=== PATIENT | male | born 1950 | race Caucasian/White ===

== ENCOUNTER 2024-03-23 11:39 | Inpatient (IN) ==
--- OUTSIDE RECORDS SUMMARY | 2024-03-23 11:45 | External Medical Summary | Summary of Care ---
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 ages 18 years and over): No Do you think you are at risk of becoming homeless? (Adult - for ages 18 years and over): Not on file Does your family worry about paying for your home or becoming homeless? (Household - for ages 0-17 years): Not on file Are you homeless or worried that you might be in the future? (Adult - for ages 18 years and over): No Are you (or your family) homeless or worried that you might be in the future? (Household - for ages0-17 years): Not on file COMPLETE REVIEW OF SYSTEMS: Cardiovascular: Negative for chest pain, shortness of breath, palpitations, angina or [place] Neurological: Negative for stroke, TIA, amaurosis fugax All other systems negative except for those noted above and in the history of present illness (HPI). GENERAL MULTI-SYSTEM PHYSICAL EXAM: VITAL SIGNS: BP 152/80 (BP Site: Left Arm, BP Position: Sitting, BP Cuff Size: Regular) | Pulse 72 | Temp 36 C(96.8 F) (Temporal Artery) | Wt 88.9 kg (195 lb 14.4 oz) | BMI 27.32 kg/m | BSA 2.11 m GENERAL MULTI-SYSTEM PHYSICAL EXAM: GENERAL: Normal grooming habits, no acute distress and appears stated age. RESPIRATORY: CTA, good effort CARDIOVASCULAR: no heart murmurs, no edema and no varicosities. GASTROINTESTINAL: no tenderness, protuberant and abdominal aorta not palpable. SKIN: Bilateral feet are warm to touch. Right TMA site is pink with edges approximated with sutures. No drainage. No evidence of necrosis as of now. Posterior heel steri-strips intact over puncture sites for achilles tendon release. No left foot ulcers EYES: conjunctivae normal, eye lids normal, pupils normal and irises normal. NEUROLOGIC: CN and motor function intact. RIGHT FOOT: PULSE SCALE: Carotid Right:----Bruit: No Left:----Bruit: No Radial Right: 2 Left: 2 Femoral Right: 2 Left: 3 Popliteal Right: 2 Left: 2 Dorsalis Pedis Right: 0 biphasic doppler signal Left: 0 Posterior Tibial Right: 0 monophasic doppler signal Left: 0 PULSE SCALE: 4=Aneurysmal; 3=Normal; 2=Diminished; 1=Barely Palpable; 0=Absent DIAGNOSTIC STUDIES: 02/26/24: right foot xray: not yet read but apparent osteomyelitis of right medial MTH 01/17/2024 BLE Veins Mapping: R GSV: 5.6/4.6/4.1/3.5/3.6/2.6/3.9 mm L GSV: 5.1/3.2/2.9/3.3/2.5/2.1/2.0 mm. 12/28/2023 MRI R Foot: 1. Field inhomogeneity artifact severely reduces sensitivity. 2. Confluent T1 hypointensity, T2 hyperintensity, and enhancement of the medial/tibial aspect of the great toe proximal phalanx base and great toe metatarsal head, which may represent osteomyelitis. Overlying soft tissue defect, which may represent wound/ulcer. 3. Apparent confluent T1 hypointensity, T2 hyperintensity, and enhancement of the tuft of the greattoe distal phalanx, 2nd toe distal phalanx and middle phalanx head, and to a lesser degree 4th distal phalanx, which may represent osteomyelitis or field inhomogeneity artifact. 4. Possible soft tissue defect along the tip of the 2nd toe which may represent wound/ulcer, and increases index of suspicion for osteomyelitis of the 2nd toe. 5. Nonspecific mild diffuse soft tissue swelling, edema, and enhancement, which may represent cellulitis in the appropriate clinical setting. 6. No abscess or necrotizing soft tissue infection. 7. Localizer views demonstrate nonspecific abnormal signal of the talar dome. Consider nonemergent MRI of the ankle for further evaluation if clinically indicated. 12/21/23 TOREY: MC/MC, strong RLE biphasic waveforms 12/21/23 RLE Art Duplex: Ao Dist UI, RCIA 75, REIA 98, RCFA 76, RDFA 90, RSFA 121/74/83/94, R Pop 85, RTPT 81, RATA 26, RPTA 27, R Peron UI 10/31/23 TOREY: MC/MC, monophasic waveforms. Waveforms more depressed on left, compared to 202209/05/22 TOREY: MC/0.82, unchanged waveforms 03/29/22 TOREY: MC/0.88 03/29/22 Abd Aortic Duplex: 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 No CIAAs 10/13/21 TOREY MC/leg in cast. Right leg waveforms mono to biphasic. Right Toe 0.38 LABS: Hemoglobin AIC Results: Lab Results Component Value Date/Time HEMOGLOBIN A1C - [facility] 8.1 (H) 12/18/2023 10:44 AM HEMOGLOBIN A1C - [facility] 9.6 (H) 10/25/2023 11:30 AM HEMOGLOBIN A1C - [facility] 9.2 (H) 09/04/2023 10:46 AM HEMOGLOBIN A1C - [facility] 7.9 (H) 02/20/2020 10:48 AM HEMOGLOBIN A1C - [facility] 6.5 (H) 09/17/2015 08:08 AM HEMOGLOBIN A1C - [facility] 5.9 08/06/2010 08:08 AM Lab Results Component Value Date/Time CREATININE - [facility] 0.6 02/26/2024 10:15 AM CREATININE - [facility] 0.86 02/05/2024 12:00 AM CREATININE - [facility] 0.68 (A) 01/02/2024 12:00 AM CREATININE - [facility] 0.6 12/18/2023 10:44 AM CREATININE - [facility] 0.7 10/25/2023 11:30 AM CREATININE - [facility] 0.97 10/09/2023 12:00 AM CREATININE - [facility] 0.6 02/20/2020 10:48 AM CREATININE - [facility] 0.8 09/17/2015 08:08 AM CREATININE - [facility] 0.6 (L) 04/22/2011 02:15 PM CREATININE, RANDOM URINE - [facility] 53 10/25/2023 11:30 AM CREATININE, RANDOM URINE - [facility] 154 03/16/2022 08:49 AM CREATININE, RANDOM URINE - [facility] 82 04/28/2021 08:43 AM CREATININE, RANDOM URINE - [facility] 51 02/20/2020 10:48 AM CREATININE, RANDOM URINE - [facility] 101 08/06/2010 08:09 AM Lab Results Component Value Date/Time LDL (CALCULATED)-[facility] LAB 82.20 03/01/2021 12:00 AM LDL (DIRECT MEASURE)-OUTSIDE LAB 86 03/01/2021 12:00 AM LDL CHOLESTEROL (CALCULATED) - [facility] 36 03/17/2023 09:51 AM LDL CHOLESTEROL (CALCULATED) - [facility] 159 (H) 09/17/2015 08:08 AM LDL CHOLESTEROL (DIRECT MEASURE) - [facility] 109 02/20/2020 10:48 AM Hemoglobin Results: Lab Results Component Value Date/Time HGB 14.6 03/15/2024 07:45 PM HGB 15.9 02/26/2024 10:15 AM HGB 16.0 02/05/2024 12:00 AM HGB 15.6 01/02/2024 12:00 AM HGB 15.5 10/09/2023 12:00 AM HGB 15.3 09/17/2015 08:08 AM HGB 13.9 (L) 04/22/2011 02:15 PM HGB 9.7 (L) 04/27/2010 05:56 AM Hemoglobin A1C last 3 results: Lab Results Component Value Date/Time HEMATOCRIT POCT - [facility] 43 04/20/2010 11:50 AM HEMATOCRIT POCT - [facility] 04/20/2010 11:50 AM QA FLAGS AND/OR RANGES MODIFIED BY DEMOGRAPHIC UPDATE ON 04/21 AT 1103 HEMOGLOBIN A1C - [facility] 8.1 (H) 12/18/2023 10:44 AM HEMOGLOBIN A1C - [facility] 9.6 (H) 10/25/2023 11:30 AM HEMOGLOBIN A1C - [facility] 9.2 (H) 09/04/2023 10:46 AM HEMOGLOBIN A1C - [facility] 7.9 (H) 02/20/2020 10:48 AM HEMOGLOBIN A1C - [facility] 6.5 (H) 09/17/2015 08:08 AM HEMOGLOBIN A1C - [facility] 5.9 08/06/2010 08:08 AM HEMOGLOBIN I-STAT POCT - [facility] 14.6 04/20/2010 11:50 AM HEMOGLOBIN I-STAT POCT - [facility] 04/20/2010 11:50 AM QA FLAGS AND/OR RANGES MODIFIED BY DEMOGRAPHIC UPDATE ON 04/21 AT 1103 HEMOGLOBIN, [id number] LAB 7.6 (A) 02/05/2024 12:00 AM HEMOGLOBIN, [id number] LAB 7.3 (A) 03/01/2021 12:00 AM HEMOGLOBIN, [id number] LAB 7.2 (A) 02/15/2021 12:00 AM The above clinical lab tests were reviewed by me on 03/20/2024. IMPRESSIONS: S/p right 1st, 2nd, 3rd, and 4th toe transmetatarsal (Ray) amputation with Dr. Chan 03/15/24, also had achilles tendon release at same time: wound edges approximated with sutures. No s/s infection. S/P right peroneal angioplasty on 11/15/[address] Chan for PVD with slow healing toe amp sites & foot ulcer. Limited revasc options for RLE. Patient seen Podiatry (Dr. Pelaez) weekly, in [place] MRI 12/2023 suggested possibility of osteo to great toe proximal phalanx base and great toe metatarsal head: no updated xray imaging. S/P amputation of right 3rd toe for gangrene on 10/10/[address] Pelaez @ [facility] in [place]. H/O LLE Diabetic foot ulcer. S/P I&D along with wound vac therapy, followed by total contact cast. H/O left toe amps, left second toe and fourth metatarsal head for osteomyelitis, 03/05/[address] Pelaez, DPM, [place] Abd aortic ectasia by 2022 duplex HTN Dyslipidemia. Never smoker. DM. H/O Right JOSE 2010, w/ periop Tulip IVC Filter (Segundo), since removed Right rotator cuff syndrome PLAN: S/p Right completion TMA for non-healing ulcerations. Edges approximated with sutures. No evidence of necrosis currently, but high- risk given small vessel disease. Will monitor closely. BLE venous mapping and angiogram previously noted "His bypass options are limited. The AT/DP is obliterated. He has a marginal distal PT target that is supplied by the peroneal. The plantar arteries are quite small, perhaps underfilled" Continue daily 81 mg ASA for vasculopathy. Continue daily 40 mg Lipitor for dyslipidemia/pleiotropic benefits He reports excellent glycemic control since last clinic visit 01/2024. Most recent A1c 7.6% As previously discussed, at request of POA and patient, HBO post-op to assist with healing is likely to be a good option. As would like to give this TMA every chance to heal given his known small vessel disease and high risk for progression to BKA, have placed referral for their evaluation/initiation of treatments as indicated. Patient taking occasional oxycodone for severe stump pain, although less over time. Only has 3 pills left, requested refill of 10 pills to use prn severe pain if needed. Advised patient to use tylenol for pain first and only use oxycodone if pain not controlled with that. #10 escribed to [facility] pharmacy as requested. Advised that would not likely provide additional refills if wound healing going as expected. Have placed new referral for wheelchair that was ordered in the hospital but had missing information, per patient's report. He requires wheelchair in the home for maximal off-loading of right foot TMA. High-risk for incision breakdown. Patient to use walker for transfers only, otherwise should use wheelchair for movement around his home with right leg elevated for edema control. Follow-up 1 weeks for wound check at [facility] to be sure no evidence of flap necrosis, progressive wound edge separation. Also has 1 month HD appt with [facility] and RLE duplex, sooner prn SAR[facility] Section of Vascular and Endovascular Surgery [address] [address] documented in this encounter Nursing Notes * Ludy Rico LPN - 03/20/2024 10:49 AM EST Reviewed the option of transferring scripts to [facility] pharmacy with patient and / or family. Patient was instructed to not get up on the exam table/exam chair until directed and assisted by their provider; patient is to remain seated in the chair/ wheelchair/ exam table/ exam chair for fall prevention and safety reasons. Patient is aware to have assistance to step down off exam table/exam chair with personnel. Patient voiced full comprehension of instructions. Patient states no changes w/ meds.. Ludy Rico LPN documented in this encounter Miscellaneous Notes * Addendum Note - Mickey Montejo CRNP - 03/20/2024 1:37 PM ESTAddended by: MICKEY MONTEJO on: 03/20/2024 01:37 PM Modules accepted: Orders documented in this encounter Plan of Treatment Upcoming Encounters Date Type Department Care Team (Late st Contact Info) Description 03/27/2024 9:30 AM EST Office Visit Vascular Surgery, [address] [address] Mukund Ross MD [address] [place] [address] 04/05/2024 1:00 PM EST Appointment Vascular Lab [address] [address] 04/05/2024 1:30 PM EST Appointment Vascular Lab [address] [address] 04/05/2024 2:20 PM EST Office Visit Vascular Surg [facility], [address] [address] Manoj Chan MD [address] [place] [facility] [place] [address] 05/13/2024 7:20 AM EDT Office Visit Family Medicine [address] [place] [phone] Gabriele Dumas MD [address] [place] [address] [place] [address] 05/24/2024 11:00 AM EDT Office Visit Ophthalmology, [place] [address] [place] [address] Lester Livingston DO [address] [place] [address] 05/24/2024 1:00 PM EDT Hospital Encounter ENDO [facility], Endoscopy Room [facility] [address] [facility] [place] [phone] Dawn Hilario MD [address] [place] [address] 05/24/2024 1:00 PM EDT - 05/24/2024 1:30 PM EDT Surgery ENDO [facility], Endoscopy Room [facility] [address] [facility] [place] [phone] Dawn Hilario MD [address] [place], [place] [address] [address] COLONOSCOPY FLEXIBLE PROXIMAL DIAGNOSTIC 07/15/2024 2:00 PM EDT Office Visit Gastroenterology, [facility] [address] [place] [address] Lynnette Christian CRNP [address] [place] [address] 07/29/2024 7:30 AM EDT Office Visit Pharmacy, [address] [place] [address] [place] [address] Scheduled Procedures Name Priority Associated Diagnoses Date/Ti me COLONOSCOPY FLEXIBLE PROXIMAL DIAGNOSTIC Diarrhea, unspecified type 05/24/2024 1:00 PM EDT Scheduled Referrals Name Type Priority Associated Diagnoses Orde r Schedule HYPERBARIC MEDICINE REFERRAL OP Referral Within 3 days (urgent) S/P transmetatarsal amputation of foot, right (HCC) Ordered: 03/20/2024 Health Maintenance Due Date Last Done Comments DTap/Tdap Vaccines (1 - Tdap) 1969 Pneumococcal Vaccine: 50+ Years (1 of 2 - PCV) 1968 Colonoscopy 1994 Fecal Occult Blood Test 1994 Sigmoidoscopy 1994 Adult Wellness Visit 06/16/2015 COVID-19 Vaccine ( season) 2023 Diabetic Foot Exam 02/28/2024 02/27/2023, 0 03/16/2022, 02/20/2020, Additional history exists HbA1c 08/05/2024 02/05/2024, 11/0 05/2023, 10/25/2023, Additional history exists Diabetic Eye Exam 09/20/2024 09/21/2023, , 09/21/2023, Additional history exists Albumin/Creatinine Ratio 10/24/2024 024, 03/16/2022, 04/28/2021, Additional history exists Depression Screening 12/17/2024 12/18/2023 GFR 02/25/2025 02/26/2024, 01/14, 01/02/2024, Additional history exists Cologuard 06/16/2025 06/16/2022, 05/15, 06/07/2022 Colorectal Cancer Screening 06/16/2025 HPV (Gardasil) Vaccine Aged Out No lo nger eligible based on patient's age to complete this topic Hepatitis B Vaccine Aged Out No longe r eligible based on patient's age to complete this topic MENINGOCOCCAL (MENACTRA/MENVEO) Aged Out No longer eligible based on patient's age to complete this topic Zoster Vaccines Discontinued documented as of this encounter Medical Devices Implanted Type Area Jewel Stripper Device Identifier Shelf Expiration Date Model / Serial / Lot Filter Navalign Femoral Tulip - [id number] Implanted:Qty: 1 on 04/21/2010 at OR [facility] [place] Right: Inferior Vena Cava COOK : [employer] 04/12/2013 [id number] / / [id number] Lavina Acetabular Liner +4 [id number] 52mm Od Implanted:Qty: 1 on 04/22/2010 at OR [facility] [place] Right: Hip 03/16/2015 [id number] / / [id number] Stem [place] Por Tpr Stdoff S6 - [id number] Implanted:Qty: 1 on 04/22/2010 at OR [facility] [place] Right: Hip JNJ : [employer] 02/14/2020 [id number] / / [id number] Head Mtl Artic Edwardo 36mm Pl5 - [id number] Implanted:Qty: 1 on 04/22/2010 at OR [facility] [place] Right: Hip JNJ : [employer] 12/14/2014 [id number] / / [id number] Fem Acet Lavina 300 52mm - [id number] Implanted:Qty: 1 on 04/22/2010 at OR [facility] [place] Right: Hip JNJ : [employer] [id number] / / [id number] Screw Selftap 3.5x55 204.855 - [id number] Implanted:Qty: 1 on 04/22/2010 at OR [facility] [place] Right: Hip SYNTHES 204.855 / / Screw Canc 4mm 206.065 - [id number] Implanted:Qty: 1 on 04/22/2010 at OR [facility] [place] Right: Hip SYNTHES 206.065 / / Screw Canc Lavina 6.5x50mm - [id number] Implanted:Qty: 1 on 04/22/2010 at OR [facility] [place] Right: Hip JNJ : [employer] [id number] / / [id number] Screw Canc Lavina 6.5x30mm - [id number] Implanted:Qty: 1 on 04/22/2010 at OR [facility] [place] Right: Hip JNJ : [employer] 02/14/2020 [id number] / / [id number] Screw Selftap 3.5x55 204.855 - [id number] Implanted:Qty: 2 on 04/22/2010 at OR [facility] [place] Right: Hip SYNTHES 204.855 / / Screw Canc 4mm 206.065 - [id number] Implanted:Qty: 1 on 04/22/2010 at OR [facility] [place] Right: Hip SYNTHES 206.065 / / Screw Canc Lavina 6.5x15mm - [id number] Implanted:Qty: 1 on 04/22/2010 at OR [facility] [place] Right: Hip JNJ : [employer] 02/14/2020 [id number] / / [id number] Lens 20.5 [id number] - [id number] - [id number] Implanted:Qty: 1 on 10/14/2020 by Lester Livingston DO at OR [facility] Right: Eye DUANE : SURGICAL 2025 [id number] / [id number] / Lens 20.0 [id number] - [id number] - [id number] Implanted:Qty: 1 on 12/09/2020 by Lester Livingston DO at OR [facility] Left: Eye DUANE : SURGICAL 07/13/2025 [id number] / [id number] / documented as of this encounter Visit Diagnoses Diagnosis S/P transmetatarsal amputation of foot, right (HCC)- Primary Diabetes mellitus with complication (HCC) Type II or unspecified type diabetes mellitus with unspecified complication, not stated as uncontrolled Hyperlipidemia with target LDL less than 100 Other and unspecified hyperlipidemia Small vessel disease (HCC) Peripheral vascular disease, unspecified Atherosclerotic peripheral vascular disease (HCC) Atherosclerosis of [place] arteries of the extremities, unspecified Diarrhea, unspecified type documented in this encounter Advance Directives * Full Code (Latest Code Status on File) Date Activated Date Inactivated Comments 03/15/2024 3:35 PM 03/17/2024 3:47 PM This order re flects the patients wishes and were consensually agreed upon. Question Answer Comments Discussion of Advance Directives occurred with: Patient * Full Code Date Activated Date Inactivated Comments 04/22/2010 6:35 PM 04/27/2010 9:02 PM Question Answer Comments Discussion of Advance Directives occurred with: Not Discussed Care Teams Care Connector Relationship Specialty Start Date End Date Gabriele Dumas MD [address] [place] [address] [place] [address] PCP - General Family Medicine 06/04/21 documented as of this encounter
--- OUTSIDE RECORDS SUMMARY | 2024-03-23 11:45 | External Medical Summary | Summary of Care ---
Author Name Unknown Organization [facility] Address [address] [place] [address] Phone [phone] Care Team Providers Care Tray Delivery Aide Name Role Phone Gabriele Dumas MD Primary Care Provide r Reason for Visit * Reason Onset Date Comments Order Request 03/20/2024 Fax 03/20/2024 Encounter Details Date Type Department Care Team (Late st Contact Info) Description 03/20/2024 Telephone Vascular Surg [facility] [address] [place] [address] Services, [facility] [address] [place] [address] Order Request; Fax Allergies Active Allergy Reactions Criticality Noted Date Comments Influenza Vaccines Neuro complications (Please comment) 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 90 Tablet 5 3 Active OneTouch Delica Lancets 33G Use to test blood sugars once daily DxE11.9 100 Each 3 3 Active Novofine Pen Needle 32G X 6 MM (NOVOFINE 32G PEN NEEDLE)Indication s:Type 2 diabetes mellitus with hemoglobin A1c goal of less than 8.0% (HCC) Use it daily 100 Each 4 Active Lisinopril 40 MG Oral TabletIndications :HTN, goal below 140/90 TAKE 1 TABLET BY MOUTH IN THE MORNING 90 Tablet 2 4 Active OneTouch Verio In Vitro Strip (Glucose Blood)Indications :Type 2 diabetes mellitus with hemoglobin A1c goal of less than 8.0% (HCC) Use to test blood sugars once daily DxE11.9 100 Strip 3 4 Active Aspirin 81 MG Oral Tablet Delayed ReleaseIndication s:PAD (peripheral artery disease) (HCC) Take 1 Tablet by mouth in the morning. 100 Tablet 3 4 Active metFORMIN HCl ER 500 MG Oral Tablet Extended Release 24 Hour (Glucophage XR)Indications:Ty pe 2 diabetes mellitus with hemoglobin A1c goal of less than 8.0% (HCC) TAKE 4 TABLETS BY MOUTH ONCE DAILY IN THE MORNING 360 Tablet 1 4 Active Liraglutide 18 MG/3ML Subcutaneous Solution Pen-injector (Victoza)Indicati ons:Type 2 diabetes mellitus with hemoglobin A1c goal of less than 8.0% (HCC) Inject 1.8 mg under the skin in the morning. 9 mL 5 4 Active amLODIPine Besylate 5 MG Oral Tablet (Norvasc)Indicati ons:HTN, goal below 140/90 Take 1 Tablet by mouth in the morning. 90 Tablet 1 4 Active Dapagliflozin Propanediol 10 MG Oral Tablet (Farxiga)Indicati ons:Type 2 diabetes mellitus with hemoglobin A1c [...] area. Active Glimepiride 4 MG Oral Tablet (Amaryl)Indicatio ns:Type 2 diabetes mellitus with hemoglobin A1c [...] for Pain, Severe. 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 (Household - for ages [...] PM EDT documented as of this encounter Functional Status * Are you deaf or do you have serious difficulty hearing? Answer Date of Assessment Author No 03/15/2024 5:22 PM Rebecca Stewart RN * Are you blind or do [...] Rebecca Stewart RN documented in this encounter Miscellaneous Notes * Telephone Encounter - Jarrett Trejo OSA - 03/20/2024 2:06 PM EST Information faxed and called to let patient know * Telephone Encounter - Ofelia Schulz CRNP - 03/20/2024 1:29 PM EST Called and clarified what was needed. Jarrett, please fax and let patient know we resubmitted everything to [facility]. Thank you. * Telephone Encounter - Delmis Torres OSA - 03/20/2024 12:28 PM EST Pt called stating he needs a new order for the wheel chair. He states it needs to state that the leg is to be able to be raised out straight in front of him. He states he is not sure what the terminology. Per pt they also would like clinic notes from today's appt [facility] in [place] documented in this encounter Plan of Treatment Upcoming Encounters Date Type Department Care Team (Late st Contact Info) Description 03/27/2024 9:30 AM EST Office Visit Vascular Surgery, [address] [place] [address] Mukund Ross MD [address] [place] [address] 04/05/2024 1:00 PM EST Appointment Vascular Lab [address] [address] 04/05/2024 1:30 PM EST Appointment Vascular Lab [address] [address] 04/05/2024 2:20 PM EST Office Visit Vascular Surg [place] [address] [place] [address] Manoj Chan MD [address] [place] [address] 05/13/2024 7:20 AM EDT Office Visit Family Medicine [address] [place] [phone] Gabriele Dumas MD [address] [place] [address] [place] [address] 05/24/2024 11:00 AM EDT Office Visit Ophthalmology, [address] [place] [address] Lester Livingston DO [address] [place] [address] 05/24/2024 1:00 PM EDT Hospital Encounter ENDO [facility], Endoscopy Room [facility] [address] [place] [phone] Dawn Hilario MD [address] [address] 05/24/2024 1:00 PM EDT - 05/24/2024 1:30 PM EDT Surgery ENDO [facility], Endoscopy Room [facility] [address] [facility] [place] [phone] Dawn Hilario MD [address] [address] COLONOSCOPY FLEXIBLE PROXIMAL DIAGNOSTIC 07/15/2024 2:00 PM EDT Office Visit Gastroenterology, Health system [address] [facility] [place] [address] Lynnette Christian CRNP 132 [facility] [place] [address] 07/29/2024 7:30 AM EDT Office Visit Pharmacy, [address] [place] [address] [place] [address] Scheduled Procedures Name Priority Associated Diagnoses Date/Ti me COLONOSCOPY FLEXIBLE PROXIMAL DIAGNOSTIC Diarrhea, unspecified type 05/24/2024 1:00 PM EDT Health Maintenance Due Date Last Done Comments DTap/Tdap Vaccines (1 - Tdap) 1968 Pneumococcal Vaccine: 50+ Years (1 of 2 - PCV) 1968 Colonoscopy 1994 Fecal Occult Blood Test 1994 Sigmoidoscopy 1994 Adult Wellness Visit 06/16/2015 COVID-19 Vaccine ( season) 2023 Diabetic Foot Exam 02/28/2024 02/27/2023, 0 03/16/2022, 02/20/2020, Additional history exists HbA1c 08/05/2024 02/05/2024, 1105/2023, 10/25/2023, Additional history exists Diabetic Eye Exam [...] this encounter Medical Devices Implanted Type Area Drier And Pulverizer Tender Device Identifier Shelf Expiration Date Model / Serial / Lot Filter Navalign Femoral Tulip - [id number] Implanted:Qty: 1 on 04/21/2010 at [place] [facility] Right: Inferior Vena Cava COOK : [employer] 04/12/2013 [id number] / / [id number] Bruno Acetabular Liner +4 [id number] 52mm Od Implanted:Qty: 1 on 04/22/2010 at OR [facility] Right: Hip 03/16/2015 1221-36-152 / / [id number] Stem [place] Por Tpr Stdoff S6 - [id number] Implanted:Qty: 1 on 04/22/2010 at [place] [facility] Right: Hip JNJ : [employer] 02/14/2020 [id number] / / [id number] Head Mtl Artic Edwardo 36mm Pl5 - [id number] Implanted:Qty: 1 on 04/22/2010 at OR [facility] Right: Hip JNJ : [employer] 12/14/2014 [id number] / / [id number] Cup Fem Acet Bruno 300 52mm - [id number] Implanted:Qty: 1 on 04/22/2010 at [place] [facility] Right: Hip JNJ : [employer] [id number] / / [id number] Screw Selftap 3.5x55 204.855 - [id number] Implanted:Qty: 1 on 04/22/2010 at OR [facility] Right: Hip SYNTHES 204.855 / / Screw Canc 4mm 206.065 - [id number] Implanted:Qty: 1 on 04/22/2010 at OR [facility] Right: Hip SYNTHES 206.065 / / Screw Canc Bruno 6.5x50mm - [id number] Implanted:Qty: 1 on 04/22/2010 at [place] [facility] Right: Hip JNJ : [employer] [id number] / / [id number] Screw Canc Bruno 6.5x30mm - [id number] Implanted:Qty: 1 on 04/22/2010 at OR [facility] Right: Hip JNJ : [employer] 02/14/2020 [id number] / / [id number] Screw Selftap 3.5x55 204.855 - [id number] Implanted:Qty: 2 on 04/22/2010 at OR [facility] Right: Hip SYNTHES 204.855 / / Screw Canc 4mm 206.065 - [id number] Implanted:Qty: 1 on 04/22/2010 at OR [facility] Right: Hip SYNTHES 206.065 / / Screw Canc Bruno 6.5x15mm - [id number] Implanted:Qty: 1 on 04/22/2010 at OR [facility] Right: Hip JNJ : [employer] 02/14/2020 [id number] / / [id number] Lens 20.5 [id number] - [id number] 039 - [id number] Implanted:Qty: 1 on 10/14/2020 by Lester Livingston DO at OR [facility] Right: Eye DUANE : SURGICAL 2025 [id number] / [id number] / Lens 20.0 [id number] - [id number] 086 - [id number] Implanted:Qty: 1 on 12/09/2020 by Lester Livingston DO at OR [facility] Left: Eye DUANE : SURGICAL 07/13/2025 [id number] 0 / [id number] / documented as of this encounter Advance Directives * Full Code [...] Directives occurred with: Not Discussed Care Teams Tray Delivery Aide Relationship Specialty Start Date End Date Gabriele Dumas MD [address] [place] [address] [place] [address] PCP - General Family Medicine 06/04/21 documented as of this encounter
--- OUTSIDE RECORDS SUMMARY | 2024-03-23 11:45 | External Medical Summary | Summary of Care ---
Author Name Unknown Organization [facility] Address [address] [place] [address] Phone [phone] Care Team Providers Care Door Framer Name Role Phone Gabriele Dumas MD Primary Care Provide r Reason for Visit * Reason Onset Date Comments Order Request 03/20/2024 Fax 03/20/2024 Encounter Details Date Type Department Care Team (Late st Contact Info) Description 03/20/2024 Telephone Vascular Surg [facility] [address] [place] [address] Services, [facility] [address] [place] [address] Order Request; Fax Allergies Active Allergy Reactions Criticality Noted Date Comments Influenza Vaccines Neuro complications (Please comment) High 01/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 Guilen-Ortley syndrome documented as of this encounter (statuses [...] Problem Noted Date Diagnosed Date Atherosclerosis of [place] artery of extremity Diabetes mellitus with complication [...] 04/28/2021 History of osteomyelitis 04/28/2021 History of Guillain-Ortley sy ndrome due to 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 04/28/2021 [...] from today's appt [facility] in [place] documented in this encounter Plan of Treatment Upcoming Encounters Date Type Department Care Team (Late st Contact Info) Description 03/27/2024 9:30 AM EST Office Visit Vascular Surgery, [address] [place] [address] Mukund Ross MD [address] [place] [address] 04/05/2024 1:00 PM EST Appointment Vascular Lab [address] [address] 04/05/2024 1:30 PM EST Appointment Vascular Lab [address] [address] 04/05/2024 2:20 PM EST Office Visit Vascular Surg [place] [address] [place] [address] Manoj Chan MD [address] [place] [address] 05/13/2024 7:20 AM EDT Office Visit Family Medicine [address] [place] [phone] Gabriele Dumas MD [address] [place] [address] [place] [address] 05/24/2024 11:00 AM EDT Office Visit Ophthalmology, [address] [place] [address] Lester Livingston DO [address] [place] [address] 05/24/2024 1:00 PM EDT Hospital Encounter ENDO [facility], Endoscopy Room [facility] [address] [place] [phone] Dawn Hilario MD [address] [address] 05/24/2024 1:00 PM EDT - 05/24/2024 1:30 PM EDT Surgery ENDO [facility], Endoscopy Room [facility] [address] [facility] [place] [phone] Dawn Hilario MD [address] [address] COLONOSCOPY FLEXIBLE PROXIMAL DIAGNOSTIC 07/15/2024 2:00 PM EDT Office Visit Gastroenterology, [facility] [address] [facility] [place] [address] Lynnette Christian CRNP [address] [facility] [place] [address] 07/29/2024 7:30 AM EDT Office Visit Pharmacy, [address] [place] [address] [place] [address] Scheduled Procedures Name Priority Associated Diagnoses Date/Ti [...] this encounter Medical Devices Implanted Type Area Furnace Erector Device Identifier Shelf Expiration Date Model / Serial / Lot Filter Navalign Femoral Tulip - [id number] Implanted:Qty: 1 on 04/21/2010 at [place] [facility] [place] Right: Inferior Vena Cava COOK : [employer] 04/12/2013 [id number] / / [id number] [place] Acetabular Liner +4 [id number] 52mm Od Implanted:Qty: 1 on 04/22/2010 at [place] [facility] Right: Hip 03/16/2015 1221-36-152 / / [id number] Stem [place] Por Tpr Stdoff S6 - [id number] Implanted:Qty: 1 on 04/22/2010 at [place] [facility] Right: Hip JNJ : [employer] 02/14/2020 [id number] / / [id number] Head Mtl Artic Edwardo 36mm Pl5 - [id number] Implanted:Qty: 1 on 04/22/2010 at [place] [facility] Right: Hip JNJ : [employer] 12/14/2014 [id number] / / [id number] Cup Fem Acet [place] 300 52mm - [id number] Implanted:Qty: 1 on 04/22/2010 at [place] [facility] Right: Hip JNJ : [employer] [id number] / / [id number] Screw Selftap 3.5x55 204.855 - [id number] Implanted:Qty: 1 on 04/22/2010 at [place] [facility] Right: Hip SYNTHES 204.855 / / Screw Canc 4mm 206.065 - [id number] Implanted:Qty: 1 on 04/22/2010 at [place] [facility] Right: Hip SYNTHES 206.065 / / Screw Canc [place] 6.5x50mm - [id number] Implanted:Qty: 1 on 04/22/2010 at [place] [facility] Right: Hip JNJ : [employer] [id number] / / [id number] Screw Canc [place] 6.5x30mm - [id number] Implanted:Qty: 1 on 04/22/2010 at [place] [facility] Right: Hip JNJ : [employer] 02/14/2020 [id number] / / [id number] Screw Selftap 3.5x55 204.855 - [id number] Implanted:Qty: 2 on 04/22/2010 at [place] [facility] Right: Hip SYNTHES 204.855 / / Screw Canc 4mm 206.065 - [id number] Implanted:Qty: 1 on 04/22/2010 at [place] [facility] Right: Hip SYNTHES 206.065 / / Screw Canc [place] 6.5x15mm - [id number] Implanted:Qty: 1 on 04/22/2010 at [place] [facility] Right: Hip JNJ : [employer] 02/14/2020 [id number] / / [id number] Lens 20.5 Bx13kd298 - [id number] 039 - [id number] Implanted:Qty: 1 on 10/14/2020 by Lester Livingston DO at OR [facility] Right: Eye DUANE : SURGICAL 2025 [id number] 5 / [id number] / Lens 20.0 [id number] - [id number] 086 - [id number] Implanted:Qty: 1 on 12/09/2020 by Lester Livingston DO at OR [facility] Left: Eye DUANE : SURGICAL 07/13/2025 [id number] 0 / [id number] / documented as of this encounter [...] Directives occurred with: Not Discussed Care Teams Door Framer Relationship Specialty Start Date End Date Gabriele Dumas MD [address] [place] [address] [place] [address] PCP - General Family Medicine 06/04/21 documented as of this encounter
--- OUTSIDE RECORDS SUMMARY | 2024-03-23 11:45 | External Medical Summary | Summary of Care ---
Author Name Unknown Organization [facility] Address [address] [place] [address] Phone [phone] Care Team Providers Care Meteorology Teacher Name Role Phone Gabriele Dumas MD Primary Care Provide r Reason for Visit * Reason Onset Date Comments Order Request 03/20/2024 Fax 03/20/2024 Encounter Details Date Type Department Care Team (Late st Contact Info) Description 03/20/2024 Telephone Vascular Surg [facility] [address] [place] [address] Services, [facility] [address] [place] [address] Order Request; Fax Allergies Active Allergy Reactions Criticality Noted Date Comments Influenza Vaccines Neuro complications (Please comment) High 01/18/2013 Guilen-Corydon syndrome documented as of this encounter (statuses [...] Problem Noted Date Diagnosed Date Atherosclerosis of mo[place] artery of extremity Diabetes mellitus with complication [...] 04/28/2021 History of osteomyelitis 04/28/2021 History of Guillain-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 04/28/2021 [...] from today's appt [facility] in [place] documented in this encounter Plan of Treatment Upcoming Encounters Date Type Department Care Team (Late st Contact Info) Description 03/27/2024 9:30 AM EST Office Visit Vascular Surgery, [address] [place] [address] Mukund Ross MD [address] [place] [address] 04/05/2024 1:00 PM EST Appointment Vascular Lab [address] [address] 04/05/2024 1:30 PM EST Appointment Vascular Lab [address] [address] 04/05/2024 2:20 PM EST Office Visit Vascular Surg [place] [address] [place] [address] Manoj Chan MD [address] [place] [address] 05/13/2024 7:20 AM EDT Office Visit Family Medicine [address] [place] [phone] Gabriele Dumas MD [address] [place] [address] [place] [address] 05/24/2024 11:00 AM EDT Office Visit Ophthalmology, [address] [place] [address] Lester Livingston DO [address] [place] [address] 05/24/2024 1:00 PM EDT Hospital Encounter ENDO [facility], Endoscopy Room [facility] [address] [place] [phone] Dawn Hilario MD [address] [address] 05/24/2024 1:00 PM EDT - 05/24/2024 1:30 PM EDT Surgery ENDO [facility], Endoscopy Room [facility] [address] [facility] [place] [phone] Dawn Hilario MD [address] [address] COLONOSCOPY FLEXIBLE PROXIMAL DIAGNOSTIC 07/15/2024 2:00 PM EDT Office Visit Gastroenterology, [facility] [address] [facility] [place] [address] Lynnette Chrisitan CRNP 132 [facility] [place] [address] 07/29/2024 7:30 AM EDT Office Visit Pharmacy, [address] [place] [address] [place] [address] Scheduled Procedures Name Priority Associated Diagnoses Date/Ti [...] this encounter Medical Devices Implanted Type Area Egg Setter Device Identifier Shelf Expiration Date Model / Serial / Lot Filter Navalign Femoral Tulip - [id number] Implanted:Qty: 1 on 04/21/2010 at OR [facility] Right: Inferior Vena Cava COOK : [employer] 04/12/2013 [id number] / / [id number] [place] Acetabular Liner +4 [id number] Id 52mm Od Implanted:Qty: 1 on 04/22/2010 at OR [facility] Right: Hip 03/16/2015 1221-36-152 / / [id number] Stem [place] Por Tpr Stdoff S6 - [id number] Implanted:Qty: 1 on 04/22/2010 at OR [facility] Right: Hip JNJ : [employer] 02/14/2020 [id number] / / [id number] Head Mtl Artic Edwardo 36mm Pl5 - [id number] Implanted:Qty: 1 on 04/22/2010 at OR [facility] Right: Hip JNJ : [employer] 12/14/2014 [id number] / / [id number] Cup Fem Acet [place] 300 52mm - [id number] Implanted:Qty: 1 on 04/22/2010 at OR [facility] Right: Hip JNJ : [employer] [id number] / / [id number] Screw Selftap 3.5x55 204.855 - [id number] Implanted:Qty: 1 on 04/22/2010 at OR [facility] Right: Hip SYNTHES 204.855 / / Screw Canc 4mm 206.065 - [id number] Implanted:Qty: 1 on 04/22/2010 at OR [facility] Right: Hip SYNTHES 206.065 / / Screw Canc [place] 6.5x50mm - [id number] Implanted:Qty: 1 on 04/22/2010 at OR [facility] Right: Hip JNJ : [employer] [id number] / / [id number] Screw Canc [place] 6.5x30mm - [id number] Implanted:Qty: 1 on 04/22/2010 at OR [facility] Right: Hip JNJ : [employer] 02/14/2020 [id number] / / [id number] Screw Selftap 3.5x55 204.855 - [id number] Implanted:Qty: 2 on 04/22/2010 at OR [facility] Right: Hip SYNTHES 204.855 / / Screw Canc 4mm 206.065 - [id number] Implanted:Qty: 1 on 04/22/2010 at OR [facility] Right: Hip SYNTHES 206.065 / / Screw Canc [place] 6.5x15mm - [id number] Implanted:Qty: 1 on 04/22/2010 at OR [facility] Right: Hip JNJ : [employer] 02/14/2020 [id number] / / [id number] Lens 20.5 [id number] - [id number] 039 - [id number] Implanted:Qty: 1 on 10/14/2020 by Lester Livingston DO at OR [facility] Right: Eye DUANE : SURGICAL 2025 [id number] / [id number] / Lens 20.0 [id number] - [id number] 086 - [id number] Implanted:Qty: 1 on 12/09/2020 by Lester Livingston DO at OR [facility] Left: Eye DUANE : SURGICAL 07/13/2025 [id number] 0 / [id number] / documented as of this encounter [...] Directives occurred with: Not Discussed Care Teams Meteorology Teacher Relationship Specialty Start Date End Date Gabriele Dumas MD [address] [place] [address] [place] [address] PCP - General Family Medicine 06/04/21 documented as of this encounter
--- OUTSIDE RECORDS SUMMARY | 2024-03-23 11:46 | External Medical Summary ---
Author Name Unknown Address Unknown Organization : Laboratory Report Ordering Provider Test Date Status KAILYN KIMBALL 03/16/2024 07:22:43 Final Observation Date Value Abnormality Reference (Units ) Status Glucose Point of Care 03/16/2024 07:22:43 169 Above high normal 70-120 (mg/dL) Final Performing Location
--- OUTSIDE RECORDS SUMMARY | 2024-03-23 11:46 | External Medical Summary | Summary of Care ---
Author Name Unknown Organization [facility] Address [address] [place] [address] Phone [phone] Care Team Providers Care Vp Site Name Role Phone Gabriele Dumas MD Primary Care Provide r Reason for Visit * Reason Onset Date Comments Order Request 03/20/2024 Fax 03/20/2024 Encounter Details Date Type Department Care Team (Late st Contact Info) Description 03/20/2024 Telephone Vascular Surg [facility] [address] [place] [address] Services, [facility] [address] [place] [address] Order Request; Fax Allergies Active Allergy Reactions Criticality Noted Date Comments Influenza Vaccines Neuro complications (Please comment) High 01/18/2013 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 documented as of this encounter (statuses [...] Problem Noted Date Diagnosed Date Atherosclerosis of [place] artery of extremity Diabetes mellitus with complication [...] 04/28/2021 History of osteomyelitis 04/28/2021 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 04/28/2021 [...] from today's appt [facility] [place] documented in this encounter Plan of Treatment Upcoming Encounters Date Type Department Care Team (Late st Contact Info) Description 03/27/2024 9:30 AM EST Office Visit Vascular Surgery, [address] [place] [address] Mukund Ross MD [address] [place] [address] 04/05/2024 1:00 PM EST Appointment Vascular Lab [address] [address] 04/05/2024 1:30 PM EST Appointment Vascular Lab [address] [address] 04/05/2024 2:20 PM EST Office Visit Vascular Surg [place] [address] [place] [address] Manoj Chan MD [address] [place] [address] 05/13/2024 7:20 AM EDT Office Visit Family Medicine [address] [place] [phone] Gabriele Dumas MD [address] [place] [address] [place] [address] 05/24/2024 11:00 AM EDT Office Visit Ophthalmology, [address] [place] [address] Lester Livingston DO [address] [place] [address] 05/24/2024 1:00 PM EDT Hospital Encounter ENDO [facility], Endoscopy Room [facility] [address] [place] [phone] Dawn Hilario MD [address] [address] 05/24/2024 1:00 PM EDT - 05/24/2024 1:30 PM EDT Surgery ENDO [facility], Endoscopy Room [facility] [address] [facility] [place] [phone] Dawn Hilario MD [address] [address] COLONOSCOPY FLEXIBLE PROXIMAL DIAGNOSTIC 07/15/2024 2:00 PM EDT Office Visit Gastroenterology, [facility] [address] [facility] [place] [address] Lynnette Christian CRNP [address] [facility] [place] [address] 07/29/2024 7:30 AM EDT Office Visit Pharmacy, [address] [place] [address] [place] [address] Scheduled Procedures Name Priority Associated Diagnoses Date/Ti [...] this encounter Medical Devices Implanted Type Area Grinder Mill Operator Device Identifier Shelf Expiration Date Model / Serial / Lot Filter Navalign Femoral Tulip - [id number] Implanted:Qty: 1 on 04/21/2010 at OR [facility] Right: Inferior Vena Cava COOK : [employer] 04/12/2013 [id number] / / [id number] Crozier Acetabular Liner +4 [id number] 52mm Od Implanted:Qty: 1 on 04/22/2010 at OR [facility] Right: Hip 03/16/2015 1221-36-152 / / [id number] Stem [place] Por Tpr Stdoff S6 - [id number] Implanted:Qty: 1 on 04/22/2010 at OR [facility] Right: Hip JNJ : [employer] 02/14/2020 [id number] / / [id number] Head Mtl Artic Edwardo 36mm Pl5 - [id number] Implanted:Qty: 1 on 04/22/2010 at OR [facility] Right: Hip JNJ : [employer] 12/14/2014 [id number] / / [id number] Fem Acet [place] 300 52mm - [id number] Implanted:Qty: 1 on 04/22/2010 at OR [facility] Right: Hip JNJ : [employer] [id number] / / [id number] Screw Selftap 3.5x55 204.855 - [id number] Implanted:Qty: 1 on 04/22/2010 at OR [facility] Right: Hip SYNTHES 204.855 / / Screw Canc 4mm 206.065 - [id number] Implanted:Qty: 1 on 04/22/2010 at OR [facility] Right: Hip SYNTHES 206.065 / / Screw Canc [place] 6.5x50mm - [id number] Implanted:Qty: 1 on 04/22/2010 at OR [facility] Right: Hip JNJ : [employer] [id number] / / [id number] Screw Canc [place] 6.5x30mm - [id number] Implanted:Qty: 1 on 04/22/2010 at OR [facility] Right: Hip JNJ : [employer] 02/14/2020 [id number] / / [id number] Screw Selftap 3.5x55 204.855 - [id number] Implanted:Qty: 2 on 04/22/2010 at OR [facility] Right: Hip SYNTHES 204.855 / / Screw Canc 4mm 206.065 - [id number] Implanted:Qty: 1 on 04/22/2010 at OR [facility] Right: Hip SYNTHES 206.065 / / Screw Canc [place] 6.5x15mm - [id number] Implanted:Qty: 1 on 04/22/2010 at OR [facility] Right: Hip JNJ : [employer] 02/14/2020 [id number] / / [id number] Lens 20.5 [id number] - [id number] - [id number] Implanted:Qty: 1 on 10/14/2020 by Lester Livingston DO at OR [facility] Right: Eye DUANE : SURGICAL 2025 [id number] / [id number] / Lens 20.0 [id number] - [id number] - [id number] Implanted:Qty: 1 on 12/09/2020 by Lester Livingston DO at OR [facility] Left: Eye DUANE : SURGICAL 07/13/2025 [id number] / [id number] / documented as of this encounter [...] Directives occurred with: Not Discussed Care Teams Vp Site Relationship Specialty Start Date End Date Gabriele Dumas MD [address] [place] [address] [place] [address] PCP - General Family Medicine 06/04/21 documented as of this encounter
--- OUTSIDE RECORDS SUMMARY | 2024-03-23 11:46 | External Medical Summary ---
Author Name Unknown Address Unknown Organization : Laboratory Report Ordering Provider Test Date Status KAILYN KIMBALL 03/17/2024 07:18:32 Final Observation Date Value Abnormality Reference (Units ) Status Glucose Point of Care 03/17/2024 07:18:32 162 Above high normal 70-120 (mg/dL) Final Performing Location
--- OUTSIDE RECORDS SUMMARY | 2024-03-23 11:46 | External Medical Summary | Summary of Care ---
Author Name Unknown Organization [facility] Address [address] [place] [address] Phone [phone] Care Team Providers Care Powerhouse Tender Name Role Phone Gabriele Dumas MD Primary Care Provide r Reason for Visit * Reason Onset Date Comments Advice 03/18/2024 Encounter Details Date Type Department Care Team (Late st Contact Info) Description 03/18/2024 Telephone Vascular Surg [facility] [address] [place] [address] Services, [facility] [address] [place] [address] Advice Allergies Active Allergy Reactions Criticality Noted Date Comments Influenza Vaccines Neuro complications (Please comment) High 01/18/2013 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 90 Tablet 5 3 Active OneTouch Delica Lancets 33G Use to test blood sugars once daily DxE11.9 100 Each 3 3 Active Novofine Pen Needle 32G X 6 MM (NOVOFINE 32G PEN NEEDLE)Indication s:Type 2 diabetes mellitus with hemoglobin A1c goal of less than 8.0% ([facility]) Use it daily 100 Each 4 [...] needed for Pain, Moderate. 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 Patient has been made aware and is going to await there phone call. Denia Waters LPN 03/18/2024 1:34 PM * Telephone Encounter - Denia Waters LPN - 03/18/2024 1:00 PM EST I reached out to [employer], waiting to hear back to see if she has a est date of delivery. Spoke with patient and I let him know that we are looking into it and I would call him back once I hear anything. He voiced understanding. Denia Waters LPN 03/18/2024 1:01 PM * Telephone Encounter - Valerie Longoria S - No Ob/Or, PRAVEEN - 03/18/2024 12:45 PM EST Reji is calling back about a wheelchair Please call him back Thank you valerie * Telephone Encounter - Denia Waters LPN - 03/18/2024 10:40 AM EST Mauricio Brar, Do you know how long they said it would be till the patient's durable medical equipment would be delivered. Denia Waters LPN 03/18/2024 10:41 AM * Telephone Encounter - Rosalva Ramírez OSA - 03/18/2024 9:50 AM EST Pt calling in, he was told that a wheelchair would be delivered to his home from [employer] and the pt is wondering when he should be expecting that? documented in this encounter Plan of Treatment Upcoming Encounters Date Type Department Care Team (Late st Contact Info) Description 03/21/2024 9:00 AM EST Office Visit Vascular Surg [address] [address] Keven Maya CRNP [facility] [place] [address] 04/05/2024 1:00 PM EST Appointment Vascular Lab [address] [address] 04/05/2024 1:30 PM EST Appointment Vascular Lab [facility], [address] [address] 04/05/2024 2:20 PM EST Office Visit Vascular Surg [address] [address] Manoj Chan MD [facility] [place] [address] 05/13/2024 7:20 AM EDT Office Visit Family Medicine [address] [place] [phone] Gabriele Dumas MD [address] [place] [address] [place] [address] 05/24/2024 11:00 AM EDT Office Visit Ophthalmology, [address] [place] [address] Lester Livingston DO [address] [place] [address] 05/24/2024 1:00 PM EDT Hospital Encounter ENDO [facility], Endoscopy Room [facility] [address] [place] [phone] Dawn Hilario MD [address] [place] [address] 05/24/2024 1:00 PM EDT - 05/24/2024 1:30 PM EDT Surgery ENDO [facility], Endoscopy Room [facility] [address] [place] [phone] Dawn Hilario MD [address] [place] [address] COLONOSCOPY FLEXIBLE PROXIMAL DIAGNOSTIC 07/15/2024 2:00 PM EDT Office Visit Gastroenterology, [facility] [address] [place] [address] Lynnette Christian CRNP [address] [place] [address] 07/29/2024 7:30 AM EDT Office Visit Pharmacy, [address] [place] [address] [place] [address] Scheduled Procedures Name Priority Associated Diagnoses Date/Ti me COLONOSCOPY FLEXIBLE PROXIMAL DIAGNOSTIC Diarrhea, unspecified type 05/24/2024 1:00 PM EDT Health Maintenance Due Date Last Done Comments DTap/Tdap Vaccines (1 - Tdap) 1968 Pneumococcal Vaccine: 50+ Years (1 of 2 - PCV) 1968 Colonoscopy 1994 Fecal Occult Blood Test 1994 Sigmoidoscopy 1994 Adult Wellness Visit 06/16/2015 COVID-19 Vaccine ( - season) 2023 Diabetic Foot Exam 02/28/2024 02/27/2023, [...] this encounter Medical Devices Implanted Type Area Salon Professional Device Identifier Shelf Expiration Date Model / Serial / Lot Filter Navalign Femoral Tulip - [id number] Implanted:Qty: 1 on 04/21/2010 at OR [facility] Right: Inferior Vena Cava COOK : [employer] 04/12/2013 [id number] / / [id number] [place] Acetabular Liner +4 [id number] Id 52mm Od Implanted:Qty: 1 on 04/22/2010 at OR [facility] Right: Hip 03/16/2015 1221-36-152 / / [id number] Stem [place] Por Tpr Stdoff S6 - [id number] Implanted:Qty: 1 on 04/22/2010 at OR [facility] Right: Hip JNJ : [employer] 02/14/2020 [id number] / / [id number] Head Mtl Artic Edwardo 36mm Pl5 - [id number] Implanted:Qty: 1 on 04/22/2010 at OR [facility] Right: Hip JNJ : [employer] 12/14/2014 [id number] / / [id number] Fem Acet [place] 300 52mm - [id number] Implanted:Qty: 1 on 04/22/2010 at OR [facility] Right: Hip JNJ : [employer] [id number] / / [id number] Screw Selftap 3.5x55 204.855 - [id number] Implanted:Qty: 1 on 04/22/2010 at OR [facility] Right: Hip SYNTHES 204.855 / / Screw Canc 4mm 206.065 - [id number] Implanted:Qty: 1 on 04/22/2010 at OR [facility] Right: Hip SYNTHES 206.065 / / Screw Canc [place] 6.5x50mm - [id number] Implanted:Qty: 1 on 04/22/2010 at OR [facility] Right: Hip JNJ : [employer] [id number] / / [id number] Screw Canc [place] 6.5x30mm - [id number] Implanted:Qty: 1 on 04/22/2010 at OR [facility] Right: Hip JNJ : [employer] 02/14/2020 [id number] / / [id number] Screw Selftap 3.5x55 204.855 - [id number] Implanted:Qty: 2 on 04/22/2010 at OR [facility] Right: Hip SYNTHES 204.855 / / Screw Canc 4mm 206.065 - [id number] Implanted:Qty: 1 on 04/22/2010 at OR [facility] Right: Hip SYNTHES 206.065 / / Screw Canc [place] 6.5x15mm - [id number] Implanted:Qty: 1 on 04/22/2010 at OR [facility] Right: Hip JNJ : [employer] 02/14/2020 [id number] / / [id number] Lens 20.5 [id number] - [id number] 039 - [id number] Implanted:Qty: 1 on 10/14/2020 by Lester Livingston, DO at OR [facility] Right: Eye DUANE : SURGICAL 2025 [id number] / [id number] / Lens 20.0 [id number] - [id number] - [id number] Implanted:Qty: 1 on 12/09/2020 by Lester Livingston, at OR [facility] Left: Eye DUANE : SURGICAL 07/13/2025 [id number] / [id number] / documented as of this encounter [...] Directives occurred with: Not Discussed Care Teams Powerhouse Tender Relationship Specialty Start Date End Date Gabriele Dumas MD [address] [place] [address] [place] [address] PCP - General Family Medicine 06/04/21 documented as of this encounter
--- OUTSIDE RECORDS SUMMARY | 2024-03-23 11:46 | External Medical Summary | Summary of Care ---
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 (HCC) Diabetes mellitus with complication (HCC) Small vessel disease (HCC) Dyslipidemia, goal LDL below 100 Diabetic ulcer of 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, with necrosis of bone (HCC) Atherosclerosis of chitina artery of right lower extremity with ulceration of other part of foot (HCC) [I70.235] Diabetes mellitus with complication (HCC) [E11.8] Small vessel disease (HCC) [I73.9] Dyslipidemia, goal LDL below 100 [E78.5] Diabetic ulcer of 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, with necrosis of bone (HCC) [E11.621, L97.514] Procedures AMPUTATION THRU METATARSAL IR ARTERIOGRAM EXTREMITY UNILATERAL TIB/PERON ART. REVASC W/STENT+ANGIO, FIRST AMPUTATION FOOT TRANSMETATARSAL IMAGING SUPERVISION & INTERPRETATION EXTREMITY UNILATERAL TIB/PERON ART. REVASC W/STENT+ANGIO, FIRST Manoj Chan MD [address] [place] [address] Phone: tel: fax: [place] [facility], OPERATING ROOM [facility] [place] [facility] CEASAR MELCHOR [address] [place] [address] Phone: tel: Referral ID Status Reason Start Date Expiration Date Visits Re quested Visits Authorized [id number] Encounter Details Date Type Department Care Team (Latest Contact Info) Description 03/15/2024 9:44 AM EST - 03/17/2024 11:47 AM EST Hospital Encounter [facility] 8th [address] [place] [address] Manoj Chan MD [address] [place] [address] Pt Handout (on AVS) Discharge Disposition: Home - Self Care Allergies Active Allergy Reactions Criticality Noted Date Comments Influenza Vaccines Neuro complications (Please comment) 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 90 Tablet 5 023 Active OneTouch Delica Lancets 33G Use to test blood sugars once daily DxE11.9 100 Each 3 023 Active Novofine Pen Needle 32G X 6 MM (NOVOFINE 32G PEN NEEDLE)Indicati ons:Type 2 diabetes mellitus with hemoglobin A1c goal of less than 8.0% ([facility]) Use it daily 100 Each 024 Active Lisinopril 40 MG Oral TabletIndicatio ns:HTN, goal below 140/90 TAKE 1 TABLET BY MOUTH IN THE MORNING 90 Tablet 2 024 Active OneTouch Verio In Vitro Strip (Glucose Blood)Indicatio ns:Type 2 diabetes mellitus with hemoglobin A1c goal of less than 8.0% ([facility]) Use to test blood sugars once daily DxE11.9 100 Strip 3 024 Active Aspirin 81 MG Oral Tablet Delayed ReleaseIndicati ons:PAD (peripheral artery disease) (HCC) Take 1 Tablet by mouth in the morning. 100 Tablet 3 024 Active metFORMIN HCl ER 500 MG Oral Tablet Extended Release 24 Hour (Glucophage XR)Indications: Type 2 diabetes mellitus with hemoglobin A1c goal of less than 8.0% (HCC) TAKE 4 TABLETS BY MOUTH ONCE DAILY IN THE MORNING 360 Tablet 1 024 Active Liraglutide 18 MG/3ML Subcutaneous Solution Pen-injector (Victoza)Indica tions:Type 2 diabetes mellitus with hemoglobin A1c goal of less than 8.0% (HCC) Inject 1.8 mg under the skin in the morning. 9 mL 5 024 Active amLODIPine Besylate 5 MG Oral Tablet (Norvasc)Indica tions:HTN, goal below 140/90 Take 1 Tablet by mouth in the morning. 90 Tablet 1 024 Active Dapagliflozin Propanediol 10 MG Oral Tablet (Farxiga)Indica tions:Type 2 diabetes mellitus with hemoglobin A1c goal of less than 8.0% (HCC) Take 1 Tablet by mouth in the morning. 90 Tablet 1 024 Active Loperamide HCl 2 MG Oral Capsule (Imodium A-D) Take 1 Capsule by mouth 4 times a day as needed for Diarrhea. Active Kaopectate 262 MG Oral Tablet (Bismuth Subsalicylate) Take by mouth. Active Silverseal Hydrogel Dressing 2"X3" External Pad Apply topically to affected area. Active Glimepiride 4 MG Oral Tablet (Amaryl)Indicat ions:Type 2 diabetes mellitus with hemoglobin A1c goal of less than 8.0% (HCC) TAKE 1 TABLET BY MOUTH IN THE MORNING AND 1 AT BEDTIME 180 Tablet 1 025 Active Amoxicillin-Pot Clavulanate 875-125 MG Oral Tablet (Augmentin) Take 1 Tablet by mouth in the morning and 1 Tablet before bedtime. 20 Tablet 025 Active oxyCODONE HCl 5 MG Oral Tablet (Oxy IR) Take 1 Tablet by mouth every 4 hours as needed for Pain, Moderate. 10 Tablet 025 Active Colestipol HCl 1 GM Oral Tablet (Colestid) 2 tabs by mouth at lunch and 2 at bedtime 120 Tablet 12 024 2024 Discontinued Dalbavancin HCl in D5W infusion Administer intravenously once a week. 2024 Discontinued Azithromycin 250 MG Oral Tablet (Zithromax Z-Ochoa) Take two tablets by mouth on first day, then 1 tablet daily until gone 6 Tablet 2024 Discontinued Clotrimazole-Be tamethasone 1-0.05 % External Cream (Lotrisone) clotrimazole-bet amethasone 1 %-0.05 % topical cream 2024 Discontinued Clindamycin HCl 300 MG Oral Capsule Take 1 Capsule by mouth in the morning and 1 Capsule at noon and 1 Capsule before bedtime. 2024 Discontinued documented as of this encounter (statuses as of 03/17/2024) Active Problems Problem Noted Date Diagnosed Date Atherosclerosis of chitina artery of extremity Diabetes mellitus with complication [...] 04/28/2021 History of osteomyelitis 04/28/2021 History of Guillain-Dayton sy ndrome due to 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 04/28/2021 [...] as of this encounter (statuses as of 03/17/2024) Resolved Problems Problem Noted Date Diagnosed Date [...] as of this encounter (statuses as of 03/17/2024) Immunizations No known immunizationsdocumented as of this [...] money to buy more. Never true 12/08/19 24 Within the past 12 months, t he [...] No 12/08/2023 Does the household have a [facility] source of income? (Household - for ages [...] Sign Reading Time Taken Comments Blood Pressure 157/71 03/17/2024 7:32 AM EST Pulse 79 03/17/2024 7:32 AM EST Temperature 36.2 C (97.2 F) 03/17/2024 7:32 AM ES T Respiratory Rate 17 03/17/2024 2:42 AM EST Oxygen Saturation 97% 03/17/2024 7:32 AM EST Inhaled Oxygen Concentration - - Weight 87.2 kg (192 lb 3.9 oz) 03/17/2024 5:20 A M EST Height 180.3 cm (5' 11") 03/15/2024 9:45 AM EST Body Mass Index 26.81 03/15/2024 9:45 AM EST documented in this [...] Rebecca Stewart RN documented in this encounter Discharge Instructions * Discharge Instr - AVS* Navid Person MD - 03/17/2024 8:20 AM EST Discharge Date: 03/17/2024 You may call Seng Chan MD of the department of Vascular Surgery at the [facility] office in [place] at [phone] option 2. After business hours, you may call with emergency questions to [phone] ask that the on-call Vascular Surgery provider be paged. The information below provides you with the instructions and the list of medications you need to betaking following discharge from the hospital. If you have any questions, please ask before leaving.Please carry this letter with you when you see your doctor in the clinic. If you have questions, you can reach us at the numbers above. Brief summary of your inpatient care: s/p R TMA for diabetic foot ulcer 03/15 Your primary diagnosis at discharge was diabetic foot ulcer. Your doctors during this hospitalization included: Seng Chan MD Inpatient test results pending: None Complications: none significant Advance Directive Documented: Advance Directive Does the Patient have an Advance Directive? No SUPPLEMENTAL INSTRUCTIONS: Following your foot amputation: Please note: These are general guidelines to help answer the most common questions after surgery. Look at your incision daily. If you notice significant swelling that does not improve with elevation, increased pain, drainage or bleeding from incisions, incision separation, fever >101 degrees, or odor, please contact your surgeon's office to discuss with your provider. You will will need to elevate your leg (residual limb) often during the day, to keep the swelling down. If you are using a brace, take it off to check your skin every day. You may take a shower and wash over the incision with soap and water. Use handrails or ask for assistance to avoid falling. Do not soak the incision (i.e., take a bath) until the incision is completely healed. Stitches or ryan are removed approximately one month after surgery. Once the stitches are removed, you can use a fragrance-free sensitive skin moisturizer. If you are using an husam wrap, make sure to not apply this too tightly, to avoid pressure/blister injury to the skin. Keeping your balance can be challenging. Take precautions to avoid falling. Watch out for electrical cords, wet or uneven floors, floor mats/rugs that may slide. Use night-lights to keep rooms lit, especially if you get up during the night to use the bathroom. Use handrails as a balancing aid whenever possible. Return to driving varies by patient and depending upon which leg is operated on. If your left lowerextremity is amputated, you may be able to drive sooner than if it was your right. In the case of your right leg being amputated, you may need to purchase a hand device to aid in driving. Either way,once you have received medical clearance from your surgeon, you should contact the department of motor vehicles to be sure you are eligible to drive by their standards. Diet Your appetite may be less than normal after surgery. Please make sure that you are still taking in an appropriate diet, for healing and based on your other medical conditions. If you are taking narcotics, you may need to take stool softeners or laxatives (if cleared by your provider) to prevent medication-induced constipation. Medication Continue regular medications as prescribed by your surgeon and your primary care provider. Narcotics may be given for immediate postop incisional pain. This pain should decrease within 2 weeks. DO NOT drink alcohol or drive while taking narcotic pain medication. Pain Your surgical team understands that you will experience different levels and types of pain following your surgery. You will work with your surgical team to determine an appropriate pain management regimen. Common Problems It is normal to feel tired after you are discharged. If you experience pain and/or swelling, try elevating the site for relief. If you develop a firm lump in the incisional area, and your overlying skin looks black and blue, you may have developed a postoperative hematoma (blood collection at the operative site). Notify your surgeon's office. Your leg may seem heavy after surgery. This is due to your muscle weakness. Your strength and ability to control your leg will increase over time. You may experience numbness at your incision site. This is normal and usually decreases in time, but it takes time. If you smoked cigarettes before the surgery, DO NOT START SMOKING AGAIN! Smoking (and nicotine) causes constriction of blood vessels preventing adequate blood flow to the operative area and can delayhealing. The length of disability following surgery varies depending on the type of work you do. If you haveany disability forms, you can have these sent to our office for completion. All patient portions ofthe form MUST BE completed and signed by you the patient. See your primary care physician (Gabriele Dumas MD) in 8 weeks. Special Instructions: Wound care/surgical site care: Please continue to wrap R TMA site with clean dry gauze 4x4, abd pads, kerlix, and HUSAM bandage daily . For routine questions, your [facility] Vascular Surgery Team prefers the use of [employer]. [employer] is an online internet tool to help you meet your health care needs quickly by providing a secure, confidential way to view your health records and communicate with your [facility] Vascular SurgeryTeam. To sign up for [employer] go to [email or web address], "Click" Bowie Now on the right side of the screen and complete the user registration information. HOW TO QUIT SMOKING Smoking is one of the hardest habits to break. About half of all those who have ever smoked have been able to quit, and most of those (about 70%) who still smoke want to quit. Here are some of the best ways to stop smoking. KEEP TRYING: It takes most smokers about 8 tries before they are finally able to fully quit. So, the more often you try and fail, the better your chance of quitting the next time! So, don't give up! GO COLD TURKEY: Most ex-smokers quit cold turkey. Trying to cut back gradually doesn't seem to work as well, perhaps because it continues the smoking habit. Also, it is possible to fool yourself by inhaling more while smoking fewer cigarettes. This results in the same amount of nicotine in your body! GET SUPPORT: Support programs can make an important difference, especially for the heavy smoker. These groups offer lectures, methods to change your behavior and peer support. Call the free national Quitline for more information. 026-VEKQ-XCK (802-800-2969). Low-cost or free programs are offered by many hospitals, local chapters of the [place] [employer] (590-038-9918) and the [place] [employer] (933-800-9890). Support at home is important too. Non-smokers can help by offering praise and encouragement. If the smoker fails to quit, encourage them to try again! RLVU-DCK-EFEYBUB MEDICINES: For those who can't quit on their own, Nicotine Replacement Therapy (NRT) may make quitting much easier. Certain aids such as the nicotine patch, gum and lozenge are available without a prescription.However, it is best to use these under the guidance of your doctor. The skin patch provides a steady supply of nicotine to the body. Nicotine gum and lozenge gives temporary bursts of low levels of nicotine. Both methods take the edge off the craving for cigarettes. WARNING: If you feel symptoms ofnicotine overdose, such as nausea, vomiting, dizziness, weakness, or fast heartbeat, stop using these and see your doctor. PRESCRIPTION MEDICINES: After evaluating your smoking patterns and prior attempts at quitting, your doctor may offer a prescription medicine. Each has its unique advantage and side effects which your doctor can review with you. HEALTH BENEFITS OF QUITTING: The benefits of quitting start right away and keep improving the longer you go without smoking: -20 minutes: blood pressure and pulse return to normal -8 hours: oxygen levels return to normal -2 days: ability to smell and taste begins to improve as damaged nerves start to regrow -2-3 weeks: circulation and lung function improves -1-9 months: decreased cough, congestion and shortness of breath; less tired -1 year: risk of heart attack decreases by half -5 years: risk of lung cancer decreases by half; risk of stroke becomes the same as a non-smoker documented in this encounter Progress Notes * Guevara Luther CO - 03/16/2024 3:38 PM EST Pt was fitted for a Rt forefoot shoe breg medium size secondary to Amputation/Vascular surgery as requested by DR. Rosamaria Person. The orthosis was inspected for structural integrity and college counselor guidelines were followed. Donning, doffing, precautions, and wearing instructions were provided verbally and written college counselor information was given to the Pt. In the PACU EXTENDED unit bed 30.instructed to patient an staff..ROMAN Tamez 03/16/2024 3:40 PM Location: Pacu extended Accompanied by: himself Questions: no Nursing staff informed: No * Joann Guzman RP - 03/15/2024 4:51 PM EST PHARMACY PHARMACOKINETIC CONSULT [facility] [place]-[address] [address] Name: Reji Santos Location: OR [facility] [place] [facility]/OR Date: 03/15/2024 Time: 4:51 PM Requesting service: Vascular Surgery Bacteria being treated: Empiric Source of infection: Osteomyelitis right 1st toe s/p right 1st, 2nd, 3rd, and 4th toe transmetatarsal (Ray) amputation on 03/15/2024 Medication(s) being managed: Vancomycin Pharmacokinetic calculations will be performed utilizing [employer] software. Lab information: Lab Results Component Value Date/Time WBC 11.85 (H) 02/26/2024 10:15 AM WBC 8.59 04/28/2021 08:43 AM WBC 8.40 09/17/2015 08:08 AM WBC 9.85 04/22/2011 02:15 PM WBC 14.98 (H) 04/27/2010 05:56 AM WBC 13.60 (H) 04/26/2010 07:43 AM WBC 12.83 (H) 04/25/2010 06:14 AM Lab Results Component Value Date/Time BUN 12 02/26/2024 10:15 AM BUN 15 12/18/2023 10:44 AM BUN 13 10/25/2023 11:30 AM BUN 14 09/04/2023 10:46 AM BUN 15 03/17/2023 09:51 AM BUN 21 (H) 02/20/2020 10:48 AM BUN 23 (H) 09/17/2015 08:08 AM BUN 18 04/22/2011 02:15 PM BUN 21 (H) 08/06/2010 08:08 AM BUN 15 04/27/2010 05:56 AM Lab Results Component Value Date/Time CREAT 0.6 02/26/2024 10:15 AM CREAT 0.86 02/05/2024 12:00 AM CREAT 0.68 (A) 01/02/2024 12:00 AM CREAT 0.6 12/18/2023 10:44 AM CREAT 0.7 10/25/2023 11:30 AM CREAT 0.97 10/09/2023 12:00 AM CREAT 0.7 09/04/2023 10:46 AM CREAT 0.80 06/12/2023 12:00 AM CREAT 0.9 03/17/2023 09:51 AM CREAT 0.59 (A) 04/12/2021 12:00 AM CREAT 0.6 02/20/2020 10:48 AM CREAT 0.8 09/17/2015 08:08 AM CREAT 0.6 (L) 04/22/2011 02:15 PM CREAT 0.5 (L) 08/06/2010 08:08 AM CREAT 0.5 (L) 04/27/2010 05:56 AM ANTIMICROBIALS GIVEN (last 96 hours) None Wt Readings from Last 1 Encounters: 03/15/24 88.9 kg (196 lb) Levels to date: No results found for: "VANCO", "VANCOPEAK", "VANCORANDOM", "VANCOTROUGH", "GENTPEAK", "GENTRANDOM","GENTTROUGH", "TOBRAPEAK", "TOBRARANDOM", "TOBRATROUGH", "AMIKAPEAK", "AMIKARANDOM", "AMIKATROUGH" Impression: Reji Santos is a/an 73 year old male receiving vancomycin therapy. The pharmacokinetic target for therapy is AUC24,SS (range) 400-600mg/L.hr Assessment and Plan: Assessment: Analysis using [employer] gives the following patient-specific pharmacokinetic parameters: CL: 5.18 L/hr V: 60 L T1/2: 9.2 hours At this time we recommend a loading dose of 2250 mg, followed by a regimen of 1500 mg IV every 12 hours, which is predicted to result in a steady-state trough of 14.6 mg/L and AUC24 of 559 mg/L.hr. Recommendations: - Vancomycin 1500 mg IV every 12 hours - Obtain Vancomycin level on 2 at AM - Continue to monitor serum creatinine Pharmacy will continue to follow and dose as appropriate by renal function, culture results, infectious disease input, and overall clinical status. Contact the Pharmacy at extension [phone] if there are any questions. Joann Guzman RPh * Colette aSntana CFO - 03/15/2024 4:32 PM EST Pt was fit and delivered an XS Darco shoe secondary to a right TMA as requested by Chitra Davila DO.The orthosis was inspected for structural integrity and college counselor guidelines were followed. Donning, doffing, precautions, and wearing instructions were provided verbally to the patient. Location: [facility] Pacu Accompanied by: himself Nursing staff informed: Yes CFO Ajay 03/15/2024 4:34 PM documented in this encounter H&P Notes * Carter Brown DO - 03/15/2024 1:10 PM EST HISTORY & PHYSICAL INTERVAL NOTE - Vascular Surgery [facility] [place]-[address] [id number] History and Physical Update: Name: Reji Santos Location: OR [facility] [place] [facility]/OR Date: 03/15/2024 Time: 1:11 PM DATE OF HISTORY AND PHYSICAL: 03/15/2024 Patient Vitals for the past 24 hrs: BP Temp Temp src Pulse Resp SpO2 Height Weight 03/15/24 1254 199/83 36.4 C (97.5 F) Tympanic 65 19 99 % -- -- 03/15/24 1145 189/93 36.5 C (97.7 F) Tympanic 68 16 98 % -- -- 03/15/24 0945 -- -- -- -- -- -- 1.803 m (5' 11") 88.9 kg (196 lb) Heart Exam: regular rate and rhythm, no murmurs or gallops Lung Exam: clear to auscultation bilaterally Other Pertinent Physical Exam: DP and PT signals present b/l, multiple missing toes b/l, non healing ulcer at the lateral base of R great toe I have reviewed the H&P previously performed and examined the patient today. There are no new findings noted. ANTICOAGULANTS: Does the patient take Coumadin (warfarin)? no Does the patient take any other anticoagulants? Yes, asa - last dose morning 03/14 Cosigned by Manoj Chan MD at 03/15/2024 2:06 PM EST * Carter Brown DO - 02/26/2024 8:13 AM EST Images from the original note were not included. Expand All Collapse All[]Expand All by Default Date of Service: 02/26/2024 8:13 AM Reji Santos is a 73 year old male. Referring physician/PCP: Gabriele Dumas MD Chief Complaint: wound check Practice Coordinator recently sent patient back to clinic as he was concerned about patient's perfusion to his right foot and non-healing ulcerations. Known severe tibial PAD with no great revasc options. No fever/chills or localized s/s of infection. No pain in setting of dense neuropathy. Obtained xray earlier today to evaluate for osteomyelitis. Using betadine paint daily on various right foot wounds. Recently treated with course of Clindamycin for concerns of infection. Friend, Seng (he is POA), here with him today HPI: Patient is a pleasant never smoker who [facility]. More recently he was hospitalized 10/08-10/12/2023 and underwent amputation of right 3rd toe for gangrene on 10/10/[address] Pelaez @ [facility] in [place]. Per discharge summary: Followed up in clinic on 11/08/2023 and subsequently underwent right peroneal angioplasty on 11/15/[address] Chan for PVD with slow to heal toe amp sites and base of foot ulcer Followed by Podiatry in [place] weekly, every Monday Developed large sore of right foot, medial MTH region a few weeks ago Applying daily dry dressing, per Podiatry, every day XRay of right foot was negative for osteo, on 12/17 @ [facility] 12/28/2023 MRI R Foot: 1. Field [...] FAMILY HISTORY: Family history is noncontributory. Current Medications Current Outpatient Medications Medication Sig Dispense Refill Atorvastatin Calcium 40 MG Oral Tablet (Lipitor) Take 1 Tablet by mouth in the morning. 90 Tablet 5 OneTouch Delica Lancets 33G Use to test blood sugars once daily DxE11.9 100 Each 3 Glimepiride 4 MG Oral Tablet (Amaryl) Take 1 Tablet by mouth in the morning and 1 Tablet before bedtime. 180 Tablet 2 Novofine Pen Needle 32G X 6 MM [...] 1 Liraglutide 18 MG/3ML Subcutaneous Solution Pen-injector ([employer]) Inject 1.8 mg under the skin in [...] Oral Tablet (Bismuth Subsalicylate) Take by mouth. Colestipol HCl 1 GM Oral Tablet (Colestid) 2 tabs by mouth at lunch and 2 at bedtime 120 Tablet 12 Azithromycin 250 MG Oral Tablet (Zithromax Z-Ochoa) Take two tablets by mouth on first day, then 1 tablet daily until gone 6 Tablet 0 Silverseal Hydrogel Dressing 2"X3" External Pad Apply topically to affected area. Clindamycin HCl 300 MG Oral Capsule Take 1 Capsule by mouth in the morning and 1 Capsule at noon and 1 Capsule before bedtime. No current facility-administered medications for this visit. 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 PAD (peripheral artery disease) ([facility]) Acquired absence of other left toe(s) ([facility]) 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 2 diabetes mellitus [facility] [facility]) 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 ([facility]) Chronic bilateral low back pain History of pancreatitis Past Medical History Past Medical History: Diagnosis Date 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 DISLOCAT HIP NOS-CLOSED 04/20/2010 DM type 2, goal A1c below 7 04/23/2010 hgba1c 8.6 Foot drop, right FRACTURE ACETABULUM-CLOS 04/20/2010 FRACTURE FOUR RIBS-CLOSE 04/20/2010 Gangrene of left foot ([facility]) 03/01/2021 admitted, I&D, ceftriaxone, and vancomycin 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 HTN, goal below 140/90 Hyperlipidemia LDL goal < 100 Need for hepatitis C screening test 09/17/2015 negative Open wound of upper arm 04/20/2010 Osteomyelitis of second toe of left foot (HCC) 03/02/2021 [place], left second toe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 blood clots, irritation of the cornea of your eye, vision loss, loosened or broken teeth, or other oral injuries, awareness, nerve stretch injury of the arm, neck or leg, hoarseness, laryngospasm, permanent liver damage and allergic reaction to the medications. History of anesthesia complications: If you or a family member have had a complication related to anesthesia such as difficulty with placement of a breathing tube or a serious reaction to a medication administered for anesthesia, pleasetell your anesthesia provider. Having this information will help keep you safe while under anesthesia Nausea: A common side effect of anesthesia is nausea, but some patients do experience both nausea and vomiting. If you have experienced nausea or vomiting after anesthesia in the past, be sure to tell your anesthesia provider so medication can be given to help prevent it from happening again. Patient safety/consenting process: All surgical procedures and anesthetics have some small risks. They are dependent upon many factorsincluding the type of surgery and your medical condition. That is why it is important to know aboutany underlying medical problems, how they are treated and how they can be managed to reduce the risks of anesthesia and surgery. Thus, it is important for your anesthesia provider to ask detailed questions about your medical history, and to know what prescription medications you are taking, including dosages and schedules, as well as any over the counter or herbal medicines and supplements. You must notify the doctor of any of the following: -if you are or possibly -if you have any sensitivity to medications -present mental and physical condition -if recently consumed alcohol or non-clear liquids -if you are presently on psychiatric mood-altering drugs or other medications If you are a female of child-bearing age and you use any form of hormone-based contraception, please continue to use it and, in addition, use an alternative form of contraception, such as condoms andspermicide for a month after discharge from the hospital. This is because during the hospitalization you might receive one or more medications that may render hormone-based contraceptives ineffectivefor several days or weeks. The affected contraceptives include, but are not limited to, the usual contraceptive pills, most types of intrauterine devices, Depo-Provera shots, hormonal patches, and hormonal vaginal rings. If you are not sure, contact your primary care physician, your table setter, or your surgeon to check if this warning applies to you. You may need to have invasive monitoring, which includes the insertion of catheters into your veinsand arteries. This is done to measure pressures, to take blood samples, and may be used in emergentsituations for intravenous access. This monitoring has risks including, but not limited to, injury to your arteries, lung collapse, bleeding, nerve injury as well as the risks related to anesthesia. An esophageal probe may be used to monitor your heart, this monitor has risks which include sore throat, hoarseness, difficulty with swallowing, loosened or broken teeth and esophageal injury. Major complications are rare but could include , respiratory distress, an abnormal heartbeat, infection, and bleeding. As part of the consent to administer anesthesia authorization you will discuss the following with the anesthesia doctor and his/her associates: -your present condition and diagnosis as it pertains to anesthesia or sedation administration -a description of the proposed anesthetic/sedation technique or procedure to be used -significant risks and benefits of the proposed anesthetic/sedation technique or procedure -any applicable alternatives, including their risks and benefits -if applicable, use of back-up method of contraception for 30 days after discharge -if applicable, the option of having no treatment and the potential results of this -if your procedure is in an outpatient surgery setting-the risk associated with having this procedure in this type of setting should be discussed as well as the potential need for transfer to the hospital if necessary Please be sure to have all questions that you have answered prior to signing the consent to administer anesthesia. You can make your care safer by being an active, informed patient. It is important that you are involved in your health care. Being a good patient does not mean being a silent one. If you have questions, problems, safety concerns or unmet needs, please let us know if you would like further clarification of the "Patient Rights and Responsibilities" as they pertain to you, or would like more information regarding our complaint and for grievance process, please call the site where you receive care and request to speak withthe patient advocate line. [facility]: Contact # [phone] Directions to Surgical Suite in from the [place]as[place] Entrance The Surgical Waiting Room can be found in the [facility]. Enter through Main [facility] Entrance and the Waiting Room is directly in front of you. Proceed to check in and give them your name. Directions to Surgical Suite from the East Entrance Enter the East entrance and follow the hallway to the J elevator. Take the J elevator up to Level 1. [facility] Room will be on your Right. Proceed to check in and give them your Name. Directions to Surgical Suite from the Parking Garage Enter the AM lobby and proceed down the stone to the left. At the end of the stone, turn right. Continue down the long hallway to the main [place] Lobby. The Surgical Waiting Room will be on your Right. Proceed to check in and give them your Name. THANK YOU FOR CHOOSING [facility]! documented in this encounter OR Notes * OR Surgeon - Manoj Chan MD - 03/15/2024 3:06 PM EST [address] [id number] OPERATIVE REPORT Name: Reji Santos Date: 03/15/2024 Time: 3:06 PM Location: OR [facility] [place] Service: Vascular Surgery Date of Operation: 03/15/2024 Preoperative diagnosis: Osteomyelitis right 1st toe Postoperative diagnosis: Same Surgeon: Seng Chan MD Assistants: Robin Whaley MD, Chitra Davila DO, and Carter Brown DO Anesthesia: Monitored Local Anesthesia with Sedation Nerve block Postoperative pain management per Anesthesia for evaluation and placement of regional anesthesia toreduce the need for opioid pain medication. Operation: right 1st, 2nd, 3rd, and 4th toe transmetatarsal (Ray) amputation Achilles tenotomy. Findings: Osteomyelitis right 1st The patient has evidence of soft tissue infection that will require long-term post-operative antibiotic therapy and may require additional surgeries and re-admissions. Specimen and Disposition: Proximal bone to microbiology, soft tissue to microbiology. Estimated Blood Loss: 50 ml Fluids: 400 mL crystalloid Urine Output: None Drains/Implants: None Complications: None Postoperative Condition: Stable Indications and History: The patient is a 73 year old male who presents for transmetatarsal (Ray) toe amputation. Description of Operation: The patient was seen in the Holding Room and the site of surgery properly noted and marked. The patient was identified as Reji Santos, and the procedure verified. In the operating room, a Time Outwas held and the above information was confirmed. The patient was given anesthesia. The right foot was prepped and draped in the usual sterile fashion. A circular skin incision was made at the transmetatarsal-phalangeal level across the entire plantar aspect of the foot sparing the majority of the plantar foot. The incision was then molly across the dorsal foot about 2 cm proximal to the metarsal phalangeal level. The incision was deepened to the level of the bone, dividing all tendinous attach ments. The bone was then transected at the level of the distal transmetatarsal level, approximately5 cm proximal to the level of the plantar flap skin incision. Proximal bone cultures were sent to microbiology. The wound was then irrigated with antibiotic solution. Hemostasis was ensured. Skin closure was performed with 4-0 nylon suture in an interrupted fashion. Sterile dressings were applied. A segment of the achilles was selected approximately 5 cm above its distal insertion to the calcaneus. Three separate stab incisions were made with an 11 blade. 2 incisions on the medial aspect of the leg by 5 cm and 1 incision was made on the lateral leg between the first two medial incisions. The achilles tendon was partially divided under tension and the achilles was felt to lengthenafter the incision. Postoperative pain management per Anesthesia for evaluation and placement of regional anesthesia toreduce the need for opioid pain medication. Attestation: I was present and scrubbed for the entire procedure documented in this encounter Miscellaneous Notes * Pt Handout (on AVS) - Beulah Bryant RN - 03/17/2024 9:20 AM EST [id number] Oxycodone Brand Name(s): Oxaydo, Oxycontin, Roxicodone, Roxybond, Xtampza ER, Combunox (as a combination product containing Ibuprofen, Oxycodone), Narvox (as a combination product containing Acetaminophen, Oxycodone), Oxycet (as a combination product containing Acetaminophen, Oxycodone), Percocet (as a combination product containing Acetaminophen, Oxycodone), Percodan (as a combination product containing Aspirin, Oxycodone), Roxicet (as a combination product containing Acetaminophen, Oxycodone), Roxilox (as a combination product containing Acetaminophen, Oxycodone), Roxiprin (as a combination product containing Aspirin, Oxycodone), Targiniq ER (as a combination product containing naloxone, oxycodone), Troxyca ER (as a combination product containing Naltrexone, Oxycodone), Tylox (as a combination product containing Acetaminophen, Oxycodone), Xartemis XR (as a combination product containing Acetaminophen, Oxycodone); also available generically IMPORTANT WARNING: Oxycodone may be habit-forming. Take oxycodone exactly as directed. Do not take more of it, take itmore often, or take it in a different way than directed by your doctor. While taking oxycodone, discuss with your healthcare provider your pain treatment goals, length of treatment, and other ways tomanage your pain. Tell your doctor if you or anyone in your family drinks or has ever drunk large amounts of alcohol, uses or has ever used street drugs, or has overused prescription medications, or has had an overdose, or if you have or have ever had depression or another mental illness. There is a greater risk that you will overuse oxycodone if you have or have ever had any of these conditions.Talk to your healthcare provider immediately and ask for guidance if you think that you have an opioid addiction or call the U.S. Substance Abuse and Mental Health Services Administration (SAMHSA) National Helpline at 5-158-474-AOHX. Oxycodone may cause serious or life-threatening breathing problems, especially during the first 24 to 72 hours of your treatment and any time your dose is increased. Your doctor will monitor you carefully during your treatment. Tell your doctor if you have or have ever had slowed breathing or asthma. Your doctor will probably tell you not to take oxycodone. Also tell your doctor if you have or have ever had lung disease such as chronic obstructive pulmonary disease (COPD; a group of diseases that affect the lungs and airways), a head injury a brain tumor, or any condition that increases the amount of pressure in your brain. The risk that you will develop breathing problems may be higher if you are an older adult or are weak or malnourished due to disease. If you experience any of the following symptoms, call your doctor immediately or get emergency medical treatment: slowed breathing, long pauses between breaths, or shortness of breath. Do not allow anyone else to take your medication. Oxycodone may harm or cause to other peoplewho take your medication, especially children. Keep oxycodone in a safe place so that no one else can take it accidentally or on purpose. Be especially careful to keep oxycodone out of the reach of children. Keep track of how many capsules, tablets, or oral solution is left so you will know if any medication is missing. Taking certain other medications with oxycodone may increase the risk of serious or life-threatening breathing problems, sedation, or coma. Tell your doctor and pharmacist what other prescription andnonprescription medications, vitamins, nutritional supplements, and herbal products you are taking or plan to take. Your doctor may need to change the doses of your medication and will monitor you carefully. If you take oxycodone with other medications and you develop any of the following symptoms,call your doctor immediately or seek emergency medical care: unusual dizziness, lightheadedness, extreme sleepiness, slowed or difficult breathing, or unresponsiveness. Be sure that your caregiver orfamily members know which symptoms may be serious so they can call the doctor or emergency medical care if you are unable to seek treatment on your own. Drinking alcohol, taking prescription or nonprescription medications that contain alcohol, or usingstreet drugs during your treatment with oxycodone increases the risk that you will experience serious, life-threatening side effects. Do not drink alcohol, take prescription or nonprescription medications that contain alcohol, or use street drugs during your treatment. If you are taking the oxycodone extended-release tablets, swallow them whole; do not chew, break, divide, crush, or dissolve them. Do not presoak, lick or otherwise wet the tablet prior to placing inthe mouth. Swallow each tablet right after you put it in your mouth. If you swallow broken, chewed,crushed, or dissolved extended-release tablets, you may receive too much oxycodone at once instead of slowly over 12 hours. This may cause serious problems, including overdose and . Oxycodone comes as a regular solution (liquid) and as a concentrated solution that contains more oxycodone in each milliliter of solution. Be sure that you know whether your doctor has prescribed theregular or concentrated solution and the dose in milliliters that your doctor has prescribed. Use the dosing cup, oral syringe, or dropper provided with your medication to carefully measure the number of milliliters of solution that your doctor prescribed. Read the directions that come with your medication carefully and ask your doctor or pharmacist if you have any questions about how to measure your dose or how much medication you should take. You may experience serious or life threatening side effects if you take an oxycodone solution with a different concentration or if you take a different amount of medication than prescribed by your doctor. Store oxycodone in a safe place so that no one else can take it accidentally or on purpose. Be especially careful to keep oxycodone out of the reach of children. Keep track of how many tablets or capsules, or how much liquid is left so you will know if any medication is missing. Dispose of unwantedcapsules, tablets, extended-release tablets, extended-release capsules, and liquid properly according to instructions. (See STORAGE and DISPOSAL). Tell your doctor if you are or plan to become . If you take oxycodone regularly during your , your baby may experience life- threatening withdrawal symptoms after . Tellyour baby's doctor right away if your baby experiences any of the following symptoms: irritability, hyperactivity, abnormal sleep, high-pitched cry, uncontrollable shaking of a part of the body, vomiting, diarrhea, or failure to gain weight. Talk to your doctor about the risks of taking oxycodone. Your doctor or pharmacist will give you the college counselor's patient information sheet (Medication Guide) when you begin your treatment with oxycodone and each time you fill your prescription. Read theinformation carefully and ask your doctor or pharmacist if you have any questions. You can also visit the Food and Drug Administration (FDA) website (https://www.fda.gov/Drugs/DrugSafety/tpk567818.htm) or the college counselor's website to obtain the Medication Guide. WHY is this medicine prescribed? Oxycodone immediate-release tablets, capsules, and oral solution are used to relieve severe, acute pain (pain that begins suddenly, has a specific cause, and is expected to go away when the cause of the pain is healed) in people who are expected to need an opioid pain medication and who cannot be treated with other pain medications. Oxycodone extended-release tablets and extended-release capsulesare used to relieve severe pain in people who are expected to need pain medication around the clockfor a long time and who cannot be treated with other medications. Oxycodone extended-release tablets and extended-release capsules should not be used to treat pain that can be controlled by medication that is taken as needed. Oxycodone concentrated solution should only be used to treat people who are tolerant (used to the effects of the medication) to opioid medications because they have taken this type of medication for at least one week. Oxycodone is in a class of medications called opiate (narcotic) analgesics. It works by changing the way the brain and nervous system respond to pain. Oxycodone is also available in combination with acetaminophen (Oxycet, Percocet, others) and aspirin (Percodan). This monograph only includes information about the use of oxycodone alone. If you are taking an oxycodone combination product, be sure to read information about all the ingredients in the product you are taking and ask your doctor or pharmacist for more information. HOW should this medicine be used? Oxycodone comes as a solution (liquid), a concentrated solution, a tablet, a capsule, an extended-release (long-acting) tablet (Oxycontin), and an extended- release capsule (Xtampza ER) to take by mouth. The solution, concentrated solution, tablet, and capsule are taken usually with or without food every 4 to 6 hours, either as needed for pain or as regularly scheduled medications. The extended-release tablets (Oxycontin) are taken every 12 hours with or without food. The extended-release capsules (Xtampza ER) are taken every 12 hours with food; eat the same amount of food with each dose. Follow the directions on your prescription label carefully, and ask your doctor or pharmacist to explainany part you do not understand. Take oxycodone exactly as directed. If you are taking the extended-release tablets (Oxycontin), swallow the tablets one at a time with plenty of water. Swallow the tablet or right after putting it in your mouth. Do not presoak, wet, orlick the tablets before you put them in your mouth. Do not chew or crush extended-release tablets. If you have trouble swallowing extended-release capsules (Xtampza ER), you can carefully open the capsule and sprinkle the contents on soft foods such as applesauce, pudding, yogurt, ice cream, or jam, then consume the mixture immediately. Dispose of the empty capsule shells right away by flushing them down a toilet. Do not store the mixture for future use. If you have a feeding tube, the extended-release capsule contents can be poured into the tube. Ask your doctor how you should take the medication and follow these directions carefully. Your doctor may adjust your dose of oxycodone during your treatment, depending on how well your pain is controlled and on the side effects that you experience. Talk to your doctor about how you are feeling during your treatment with oxycodone. Tell your doctor if you feel that your pain is not controlled or if your pain increases, becomes worse, or if you have new pain or an increased sensitivityto pain during your treatment with oxycodone. Do not take more of it or take it more often than prescribed by your doctor. Do not stop taking oxycodone without talking to your doctor. If you stop taking oxycodone suddenly,you may experience withdrawal symptoms such as restlessness, watery eyes, runny nose, sneezing, yawning, sweating, chills, muscle or joint aches or pains, weakness, irritability, anxiety, depression,difficulty falling asleep or staying asleep, cramps, nausea, vomiting, diarrhea, loss of appetite, fast heartbeat, and fast breathing. Your doctor will probably decrease your dose gradually. Are there OTHER USES for this medicine? This medication may be prescribed for other uses; ask your doctor or pharmacist for more information. What SPECIAL PRECAUTIONS should I follow? Before taking oxycodone, tell your doctor and pharmacist if you are allergic to oxycodone, any other medications, or any of the ingredients in the oxycodone product you plan to take. Ask your pharmacist or check the Medication Guide for a list of the ingredients. tell your doctor or pharmacist if you are taking the following medications or have stopped taking them within the past two weeks: isocarboxazid (Marplan), linezolid (Zyvox), methylene blue, phenelzine (Nardil), selegiline (Emsam, Zelapar), or tranylcypromine (Parnate). The following nonprescription or herbal products may interact with oxycodone: Golinda's wort and tryptophan. Be sure to let your doctor and pharmacist know that you are taking these medications before you start taking oxycodone. Do not start these medications while taking oxycodone without discussing it with your healthcare provider. tell your doctor if you have or have ever had any of the conditions mentioned in the IMPORTANT WARNING section, a blockage or narrowing of your stomach or intestines, or paralytic ileus (conditionin which digested food does not move through the intestines). Your doctor may tell you not to take oxycodone. Also tell your doctor if you have or have ever had low blood pressure; seizures; adrenal insufficiency (condition in which the adrenal glands do not produce enough of certain hormones needed for important body functions); seizures; urethral stricture (blockage of the tube that allows urine to leave the body), problems urinating; or heart, kidney, liver, pancreas, thyroid, or gall bladder disease. If you will be taking the extended-release tablets or extended-release capsules, also tell your doctor if you have or have ever had difficulty swallowing, diverticulitis (condition in which small pouches form in the intestines and become swollen and infected), colon cancer (cancer that begins inthe large intestine), or esophageal cancer (cancer that begins in the tube that connects the mouth and stomach). tell your doctor if you are . You should not breastfeed while you are taking oxycodone. Oxycodone can cause shallow breathing, difficulty or noisy breathing, confusion, more than usual sleepiness, trouble , or limpness in breastfed infants. you should know that this medication may decrease fertility in men and women. Talk to your doctor about the risks of taking oxycodone. if you are having surgery, including dental surgery, tell the doctor or dentist that you are taking oxycodone. you should know that this medication may make you drowsy. Do not drive a car, operate heavy machinery, or participate in any other possibly dangerous activities until you know how this medication affects you. you should know that oxycodone may cause dizziness, lightheadedness, and fainting when you get up too quickly from a lying position. To help avoid this problem, get out of bed slowly, resting yourfeet on the floor for a few minutes before standing up. you should know that oxycodone may cause constipation. Talk to your doctor about changing your diet or using other medications to prevent or treat constipation while you are taking oxycodone. What SPECIAL DIETARY instructions should I follow? Unless your doctor tells you otherwise, continue your normal diet. What should I do IF I FORGET to take a dose? If you are taking oxycodone on a regular schedule, take the missed dose as soon as you remember it.However, if it is almost time for the next dose, skip the missed dose and continue your regular dosing schedule. Do not take a double dose to make up for a missed one. Do not take more than one dose of the extended- release tablets or capsules in 12 hours. What SIDE EFFECTS can this medicine cause? Some side effects can be serious. If you experience any of these symptoms or those mentioned in theIMPORTANT WARNING section, call your doctor immediately or get emergency medical help: changes in heartbeat agitation, hallucinations (seeing things or hearing voices that do not exist), fever, sweating, confusion, fast heartbeat, shivering, severe muscle stiffness or twitching, loss of coordination, ordiarrhea nausea, vomiting, loss of appetite, weakness, or dizziness inability to get or keep an erection irregular menstruation decreased sexual desire chest pain rash; itching; hives; hoarseness; difficulty breathing or swallowing; or swelling of the face, mouth, tongue, lips, or throat swelling of the hands, feet, ankles, or lower legs seizures extreme drowsiness If you experience a serious side effect, you or your doctor may send a report to the Food and Drug Administration's (FDA) MedWatch Adverse Event Reporting program online (https://www.fda.gov/Safety/MedWatch) or by phone ( ). Oxycodone may cause other side effects. Call your doctor if you have any unusual problems while youare taking this medication. What should I know about STORAGE and DISPOSAL of this medication? Keep this medication in the container it came in, tightly closed, and out of reach of children, andin a location that is not easily accessible by others, including visitors to the home. Store it at room temperature and away from light and excess heat and moisture (not in the bathroom). You must immediately dispose of any medication that is outdated or no longer needed through a medicine take-back program. If you do not have a take-back program nearby or one that you can access promptly, flush any medication that is outdated or no longer needed down the toilet so that others will not take it.Talk to your pharmacist about the proper disposal of your medication. It is important to keep all medication out of sight and reach of children as many containers (such as weekly pill minders and those for eye drops, creams, patches, and inhalers) are not child-resistant and young children can open them easily. To protect young children from poisoning, always lock safety caps and immediately place the medication in a safe location -- one that is up and away and outof their sight and reach. https://www.upandaway.org What should I do in case of OVERDOSE? In case of overdose, call the poison control helpline at . Information is also available online at https://www.poisonhelp.org/help. If the victim has collapsed, had a seizure, has trouble breathing, or can't be awakened, immediately call emergency services at 424. While taking oxycodone, you should talk to your doctor about having a rescue medication called naloxone readily available (e.g., home, office). Naloxone is used to reverse the life-threatening effects of an overdose. It works by blocking the effects of opiates to relieve dangerous symptoms caused by high levels of opiates in the blood. Your doctor may also prescribe you naloxone if you are livingin a household where there are small children or someone who has abused street or prescription drugs. You should make sure that you and your family members, caregivers, or the people who spend time with you know how to recognize an overdose, how to use naloxone, and what to do until emergency medical help arrives. Your doctor or pharmacist will show you and your family members how to use the medication. Ask your pharmacist for the instructions or visit the college counselor's website to get the instructions. If symptoms of an overdose occur, a caregiver or family member should give the first dose of naloxone, call 911 immediately, and stay with you and watch you closely until emergency medical help arrives.Your symptoms may return within a few minutes after you receive naloxone. If your symptoms return, the person should give you another dose of naloxone. Additional doses may be given every 2 to 3 minutes, if symptoms return before medical help arrives. Symptoms of overdose may include the following: difficulty breathing slowed or shallow breathing excessive sleepiness limp or weak muscles narrowing or widening of the pupils (dark [place] in the eye) cold, clammy skin unable to respond or wake up slowed heartbeat unusual snoring What OTHER INFORMATION should I know? Keep all appointments with your doctor. Your doctor may order certain lab tests to check your body's response to oxycodone. Before having any laboratory test (especially those that involve methylene blue), tell your doctor and the laboratory personnel that you are taking oxycodone. This prescription is not refillable. If you continue to have pain after you finish the oxycodone, call your doctor. It is important for you to keep a written list of all of the prescription and nonprescription (jvqv-cqo-sscabki) medicines you are taking, as well as any products such as vitamins, minerals, or otherdietary supplements. You should bring this list with you each time you visit a doctor or if you areadmitted to a hospital. It is also important information to carry with you in case of emergencies. This report on medications is for your information only, and is not considered individual patient advice. Because of the changing nature of drug information, please consult your physician or pharmacist about specific clinical use. The [place] [employer] represents that the information provided hereunder was formulated with a reasonable standard of care, and in conformity with professional standards in the field. The [place] [employer] makes no representations or warranties, express or implied, including, but not limited to, any implied warranty of merchantability and/or fitness for a particular purpose, with respect to such information and specifically disclaims all such warranties. Users are advised that decisions regarding drug therapy are complex medical decisions requiring the independent, informed decision of an appropriate health rn homecare, and the information is provided for informational purposes only. The entire monograph for a drug should be reviewed for a thorough understanding of the drug's actions, uses and side effects. The [place] [employer] does not endorse or recommend the use of any drug.The information is not a substitute for medical care. [facility] Patient Medication Information?. Copyright, 2023. The [place] [employer], [address], [address], [place], [place]. All Rights Reserved. Duplication for commercial use must be authorized by [facility]. Selected Revisions: April 28, 2023. [facility] Patient Medication Information?. Copyright, 2024 * Pt Handout (on AVS) - Beulah Bryant RN - 03/17/2024 9:18 AM EST [id number] Amoxicillin and Clavulanic Acid Brand Name(s): Augmentin (as a combination product containing Amoxicillin, Clavulanate), Augmentin XR (as a combination product containing Amoxicillin, Clavulanate); also available generically WHY is this medicine prescribed? The combination of amoxicillin and clavulanic acid is used to treat certain infections caused by bacteria, including infections of the ears, lungs, sinus, skin, and urinary tract. Amoxicillin is in aclass of medications called penicillin-like antibiotics. It works by stopping the growth of bacteria. Clavulanic acid is in a class of medications called beta-lactamase inhibitors. It works by preventing bacteria from destroying amoxicillin. Antibiotics will not work for colds, flu, or other viral infections. Using antibiotics when they are not needed increases your risk of getting an infection later that resists antibiotic treatment. HOW should this medicine be used? The combination of amoxicillin and clavulanic acid comes as a tablet, a chewable tablet, and a suspension (liquid) to take by mouth. It is usually taken with a meal or snack every 8 hours (three times a day) or every 12 hours (twice a day). To help you remember to take amoxicillin and clavulanate, take it around the same times every day. Follow the directions on your prescription label carefully,and ask your doctor or pharmacist to explain any part you do not understand. Take amoxicillin and clavulanic acid exactly as directed. Do not take more or less of it or take it more often than prescribed by your doctor. Shake the liquid well before each use to mix the medication evenly. The chewable tablets should be chewed thoroughly before they are swallowed. You should begin to feel better during the first few days of treatment with amoxicillin and clavulanic acid. If your symptoms do not improve or get worse, call your doctor. If you are taking the suspension, do not use a household spoon to measure your dose. Use a properlymarked measuring device such as a medicine spoon or oral syringe. Ask your doctor or pharmacist if you need help getting or using a measuring device. Take amoxicillin and clavulanic acid until you finish the prescription, even if you feel better. Ifyou stop taking amoxicillin and clavulanic too soon, or skip doses, your infection may not be completely treated and the bacteria may become resistant to antibiotics. Are there OTHER USES for this medicine? This medication may be prescribed for other uses; ask your doctor or pharmacist for more information. What SPECIAL PRECAUTIONS should I follow? Before taking amoxicillin and clavulanic acid, tell your doctor and pharmacist if you are allergic to amoxicillin, clavulanic acid, penicillin,cephalosporins, any other medications, or any of the ingredients in amoxicillin and clavulanic acidtablet, chewable tablet, and oral suspension. Ask your pharmacist for a list of the ingredients. tell your doctor and pharmacist what prescription and nonprescription medications, vitamins, nutritional supplements, and herbal products you are taking. Your doctor may need to change the doses of your medications or monitor you carefully for side effects. You should know that amoxicillin and clavulanic acid may decrease the effectiveness of oral contraceptives ( control pills). You will need to use another method of contraception to prevent while taking amoxicillin and clavulanic acid. Talk to your doctor about other ways to prevent while you are taking this medication. tell your doctor if you have ever had any liver problems after you have previously taken amoxicillin and clavulanic acid. Your doctor may tell you not to take amoxicillin and clavulanic acid. tell your doctor if you have mononucleosis (a virus; also called 'mono') and if you have or haveever had kidney or liver disease, allergies, asthma, hay fever, or hives. tell your doctor if you are , plan to become , or are . If you become while taking amoxicillin and clavulanic acid, call your doctor. if you have phenylketonuria (PKU, an inherited condition in which a special diet must be followed to prevent damage to your brain that can cause severe intellectual disability), you should know that amoxicillin and clavulanic acid chewable tablets and oral suspension are sweetened with aspartamethat forms phenylalanine. What SPECIAL DIETARY instructions should I follow? Unless your doctor tells you otherwise, continue your normal diet. What should I do IF I FORGET to take a dose? Take the missed dose as soon as you remember it. However, if it is almost time for the next dose, skip the missed dose and continue your regular dosing schedule. Do not take a double dose to make up for a missed one. What SIDE EFFECTS can this medicine cause? Some side effects can be serious. If you experience any of the following symptoms, call your doctorimmediately: watery or bloody stools, stomach cramps, or fever during treatment or for up to two or more months after stopping treatment severe vomiting that may occur 1 to 4 hours after you take amoxicillin and clavulanic acid rash itching hives difficulty breathing or swallowing swelling of the face, throat, tongue, lips, and eyes wheezing peeling, blistering, or shedding skin a return of fever, sore throat, chills, or other signs of infection yellowing of the skin or eyes, pain or discomfort in right upper stomach area, fatigue, loss of appetite, bleeding or bruising more easily than normal, or dark urine Amoxicillin and clavulanic acid may cause other side effects. Call your doctor if you have any unusual problems while taking this medication. If you experience a serious side effect, you or your doctor may send a report to the Food and Drug Administration's (FDA) MedWatch Adverse Event Reporting program online (https://www.fda.gov/Safety/MedWatch) or by phone ( ). What should I know about STORAGE and DISPOSAL of this medication? Keep this medication in the container it came in, tightly closed, and out of reach of children. Store the tablets at room temperature and away from excess heat and moisture (not in the bathroom). Keep liquid medication in the refrigerator, tightly closed, and dispose of any unused medication after 10 days. It is important to keep all medication out of sight and reach of children as many containers (such as weekly pill minders and those for eye drops, creams, patches, and inhalers) are not child-resistant and young children can open them easily. To protect young children from poisoning, always lock safety caps and immediately place the medication in a safe location -- one that is up and away and outof their sight and reach. https://www.upandaway.org Unneeded medications should be disposed of in special ways to ensure that pets, children, and otherpeople cannot consume them. However, you should not flush this medication down the toilet. Instead,the best way to dispose of your medication is through a medicine take-back program. Talk to your pharmacist or contact your local garbage/recycling department to learn about take-back programs in your community. See the FDA's Safe Disposal of Medicines website (https://goo.gl/c4Rm4p) for more information if you do not have access to a take-back program. What should I do in case of OVERDOSE? In case of overdose, call the poison control helpline at . Information is also available online at https://www.poisonhelp.org/help. If the victim has collapsed, had a seizure, has trouble breathing, or can't be awakened, immediately call emergency services at 581. Symptoms of overdose may include the following: cloudy or bloody urine decreased urination What OTHER INFORMATION should I know? Keep all appointments with your doctor and the laboratory. Your doctor may order certain lab tests to check your body's response to amoxicillin and clavulanic acid. If you are diabetic, use Clinistix or TesTape (not Clinitest) to test your urine for sugar while taking this medication. Do not let anyone else take your medication. Your prescription is probably not refillable. If you still have symptoms of infection after you finish the amoxicillin and clavulanic acid, call your doctor. It is important for you to keep a written list of all of the prescription and nonprescription (aiam-yhw-fmyscbk) medicines you are taking, as well as any products such as vitamins, minerals, or otherdietary supplements. You should bring this list with you each time you visit a doctor or if you areadmitted to a hospital. It is also important information to carry with you in case of emergencies. This report on medications is for your information only, and is not considered individual patient advice. Because of the changing nature of drug information, please consult your physician or pharmacist about specific clinical use. The [place] [employer] represents that the information provided hereunder was formulated with a reasonable standard of care, and in conformity with professional standards in the field. The [place] [employer] makes no representations or warranties, express or implied, including, but not limited to, any implied warranty of merchantability and/or fitness for a particular purpose, with respect to such information and specifically disclaims all such warranties. Users are advised that decisions regarding drug therapy are complex medical decisions requiring the independent, informed decision of an appropriate health rn homecare, and the information is provided for informational purposes only. The entire monograph for a drug should be reviewed for a thorough understanding of the drug's actions, uses and side effects. The [place] [employer] does not endorse or recommend the use of any drug.The information is not a substitute for medical care. [facility] Patient Medication Information?. Copyright, 2023. The [place] [employer], [address] [place] [address], [address], [place], [place]. All Rights Reserved. Duplication for commercial use must be authorized by [facility]. Selected Revisions: September 02, 2023. [facility] Patient Medication Information?. Copyright, 2024 * Ancillary Progress Note - Zonia Lopez RN - 03/17/2024 9:11 AM EST CARE MANAGEMENT - ADULT DISCHARGE NOTE [facility] [place] [address] Name: Reji Santos Location: [facility] [place] H857/[id number] Date: 03/17/2024 Time: 9:11 AM The following coordination of care and discharge plan has been coordinated with the care team, patient, family and/or caregiver according to the patients needs and preferences. Discharge Discharge Second Notice Important Message from Medicare delivered: Yes (03/17/24908) Date Delivered: 03/17/24 (03/17/24908) Retain copy in EHR: Yes (03/17/24908) Was Caregiver/Family/Facility contacted regarding discharge: Yes (03/17/24908) Discharge Transportation: Family/Friends drive (03/17/24908) Patient declined post-hospital transition of care recommendation: N/A (03/17/24908) Final Discharge Plan (Complete only at time of Discharge): Home - Self Care (03/17/24909) Durable Medical Equipment - Admitted Since 03/15/2024 Service Provider Services Address Phone Fax Patient Preferred Last Updated [employer] Durable Medical Equipment [facility], [address], [facility] [id number] [phone] -- Zonia Lopez RN 03/17/2024907 Narrative: Discharge destination time-out called during BOOST rounds, all parties agreeable with transition plan of care. Patient to discharge home with son, request from Navid Person for w/c/Walker order for patient. Walker delivered to bedside. Order faxed to Filipe/Nallely. No other needs identified, family to transport home. Reviewed IMM with Reji and informed that patient is medically stable for discharge, however, may have 4 hours to consider whether they want to appeal discharge. Reji waived waiting those 4 hours and wishes for discharge to occur prior to that time. * Progress Notes - Post-Op Global - Navid Person MD - 03/17/2024 7:49 AM EST VASCULAR SURGERY PROGRESS NOTE [facility] [place] [address] Name: Reji Santos Location: [facility] [place] H857/[id number] Date: 03/17/2024 Time: 7:49 AM SUBJECTIVE: No acute events, patient is resting comfortably without complaint this morning. Pain controlled. OBJECTIVE: Most Recent Vital Signs: BP: 157 mmHg/71 mmHg (03/17/24731) Pulse: 79 (03/17/24731) Resp: 17 (03/17/24241) Temp: 36.22 C (03/17/24731) Temp Summary: Temp Min: 35.6 C (96.1 F) Max: 36.5 C (97.7 F) SpO2: 97 % (03/17/24731) O2 flow rate: 0 L/MIN (03/15/241999) Supplemental O2 Delivery: Room Air, None (03/17/24241) Vital Signs Last 24 Hours: Most Recent Systolic BP Av.7 mmHg Min: 118 mmHg Max: 174 mmHg Most Recent Temperature Av.1 C Min: 35.61 C Max: 36.5 C Pulse Av Min: 64 Max: 79 Resp Av.7 Min: 17 Max: 20 SpO2 Av.1 % Min: 96 % Max: 98 % Intake/Output Summary (Last 24 hours) at 03/17/2024 0749 Last data filed at 03/16/2024 1800 Gross per 24 hour Intake 600 ml Output 850 ml Net -250 ml Physical Exam: Gen: no acute distress Heent: PERRL CV: RRR Pulm: No increased WOB Abdomen: non distended Extremities UE and LE strength 5/5 VASCULAR: R TMA site c/d/I, no signs of infection, posterior achilles site c/d/I; R peroneal biphasic LABS: Lab results within last 7 days (see chart for full results) Units 03/15/24 1945 WBC K/uL 11.72* HGB g/dL 14.6 PLT K/uL 267 Recent Cultures (2 Weeks) 03/15/2024 3:23 PM CULTURE GROWTH No aerobic or anaerobic growth IMPRESSION 73 year old male s/p R TMA 03/15 PLAN - pain control PRN - PT/OT eval today - OOB/ambulate - daily dressing changes - f/u bone cx - prelim negative to date - continue vanc/zosyn - potential dispo today Navid Person MD Vascular Surgery Fellow Cosigned by Chel Garrison MD at 03/17/2024 8:15 AM EST Associated attestation - Chel Garrison MD - 03/17/2024 8:15 AM EST I saw and evaluated the patient today. I have reviewed the resident/fellow physician note and agree. He feels great and want to be d/c home today His wound looks great Cultures negative but will be checked as an oupatient Oral antibiotics at d/c F/u 7-10 days for wound check D/c instructions given * Care Plan - Yessenia Fowler RN - 03/16/2024 10:51 PM EST Clinical Goal(s): pain will remain 5/10 or less with interventions this shift (03/16/24699) Possible barriers to meeting goal(s)/advancing plan of care: recent procedure Stability of the patient: Moderately stable - low risk of patient condition declining or worsening Summary regarding today's goal(s): Met: pt's pain remained 5/10 or less Recommendations: continue to assess pain * Care Plan - Marguerite Collins RN - 03/16/2024 10:13 AM EST Clinical Goal(s): pain will remain 5/10 or less with interventions this shift (03/16/24 07) Possible barriers to meeting goal(s)/advancing plan of care: ambulation Stability of the patient: Moderately stable - low risk of patient condition declining or worsening Summary regarding today's goal(s): Met: Patient's pain is currently managed with current regimen Recommendations: Assessment of pain and treat as needed * Progress Notes - Post-Op Global - Navid Person MD - 03/16/2024 8:33 AM EST VASCULAR SURGERY PROGRESS NOTE [facility] [place] [address] Name: Reji Santos Location: PACU EXTEND [facility] [place] Date: 03/16/2024 Time: 8:33 AM SUBJECTIVE: No acute events, patient is resting comfortably without complaint this morning. Pain iswell-controlled. Already out of bed. OBJECTIVE: Most Recent Vital Signs: BP: 174 mmHg/70 mmHg (03/16/24807) Pulse: 67 (03/16/24807) Resp: 20 (03/16/24807) Temp: 36.39 C (03/16/24807) Temp Summary: Temp Min: 36.1 C (97 F) Max: 36.5 C (97.7 F) SpO2: 96 % (03/16/24807) O2 flow rate: 0 L/MIN (03/15/241999) Supplemental O2 Delivery: Room Air, None (03/16/24807) Vital Signs Last 24 Hours: Most Recent Systolic BP Av.2 mmHg Min: 122 mmHg Max: 199 mmHg Most Recent Temperature Av.3 C Min: 36.11 C Max: 36.5 C Pulse Av Min: 63 Max: 77 Resp Av.8 Min: 16 Max: 23 SpO2 Av.5 % Min: 95 % Max: 100 % Intake/Output Summary (Last 24 hours) at 03/16/2024 0833 Last data filed at 03/16/2024 0000 Gross per 24 hour Intake 600 ml Output 450 ml Net 150 ml Physical Exam: Gen: no acute distress Heent: PERRL CV: RRR Pulm: No increased WOB Abdomen: non distended Extremities UE and LE strength 5/5 VASCULAR: R TMA site c/d/I, no signs of infection, posterior achilles site c/d/I; R peroneal monophasic LABS: Lab results within last 7 days (see chart for full results) Units 03/15/24 1945 WBC K/uL 11.72* HGB g/dL 14.6 PLT K/uL 267 Recent Cultures (2 Weeks) 03/15/2024 3:23 PM CULTURE GROWTH No aerobic or anaerobic growth IMPRESSION 73 year old male s/p R TMA 03/15 PLAN - pain control PRN - PT/OT - OOB/ambulate - daily dressing changes - f/u bone cx - continue vanc/zosyn Navid Person MD Vascular Surgery Fellow Cosigned by Chel Garrison MD at 03/16/2024 8:47 AM EST Associated attestation - Chel Garrison MD - 03/16/2024 8:47 AM EST I saw and evaluated the patient today. I have reviewed the resident/fellow physician note and agree. Feels great No pain Awaiting cultures Needs PT Plan d/c in next 2 days pending cultures * Progress Notes - Non-Billable - Carter Brown DO - 03/15/2024 4:36 PM EST PROGRESS NOTE - VASCULAR SURGERY [facility] [place] [address] Name: Reji Santos Location: OR [facility] [place] Date: 03/15/2024 Time: 4:36 PM SUBJECTIVE: Reji Santos is doing well post-op. Pain is well-controlled. No n/v, chest pain, or SOB. Has not voided since surgery. Has not been OOB. OBJECTIVE: Physical Exam: BP: 168 mmHg/88 mmHg (03/15/24 163) Pulse: 65 (03/15/24 163) Resp: 16 (03/15/24 163) Temp: 36.22 C (03/15/24 1550) Temp Summary: Temp Min: 36.2 C (97.2 F) Max: 36.5 C (97.7 F) SpO2: 99 % (03/15/24 163) O2 flow rate: 2 L/MIN (03/15/24 163) Supplemental O2 Delivery: Nasal Cannula (03/15/241629) Constitutional: no acute distress, appropriate mood Head: normocephalic, atraumatic Eyes: sclera and conjunctiva normal Neck: supple, trachea midline, normal range of motion CV: warm and well perfused Chest: symmetric and normal respiratory effort Abdomen: soft, non distended, no guarding or rebound. Extremities: no edema, no cyanosis, dressing over LLE is c/d/I, LLE is warm and well-perfused Skin: warm, dry Neuro: alert,conversant, motor function is grossly intact LABS: Labs reviewed as indicated below: IMAGING: No imaging results in the last 24 hours IMPRESSION: Active Problems: Atherosclerosis of chitina artery of extremity (HCC) Diabetes mellitus with complication (HCC) Small vessel disease (HCC) Dyslipidemia, goal LDL below 100 Diabetic ulcer of 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, with necrosis of bone(HCC) Resolved Problems: * No resolved hospital problems. * Reji Santos is a 73 year old male with Osteomyelitis right 1st toe s/p right 1st, 2nd, 3rd, and 4th toe transmetatarsal (Ray) amputation by Dr. Chan on 03/15/2024. Doing well post-op. - Darco shoe - vanc/zosyn for osteomyelitis - prn percocet and morphine for pain - heart healthy diet - PT/OT in am Carter Brown DO General Surgery PGY-1 03/15/2024 4:36 PM documented in this encounter Plan of Treatment Upcoming Encounters Date Type Department Care Team (Late st Contact Info) Description 03/21/2024 9:00 AM EST Office Visit Vascular Surg [address] [address] Keven Maya CRNP [address] [place] [address] 04/05/2024 1:00 PM EST Appointment Vascular Lab [address] [address] 04/05/2024 1:30 PM EST Appointment Vascular Lab [address] [address] 04/05/2024 2:20 PM EST Office Visit Vascular Surg [address] [address] Manoj Chan MD [address] [place] [address] 05/13/2024 7:20 AM EDT Office Visit Family Medicine [address] [place] [phone] Gabriele Dumas MD [address] [place] [address] [place] [address] 05/24/2024 11:00 AM EDT Office Visit Ophthalmology, [address] [place] [address] Lester Livingston DO [address] [place] [address] [address] 05/24/2024 1:00 PM EDT Hospital Encounter ENDO [facility], Endoscopy Room [facility] [address] [place] [phone] Dawn Hilario MD [address] [place] [address] 05/24/2024 1:00 PM EDT - 05/24/2024 1:30 PM EDT Surgery ENDO OSS, Endoscopy Room [facility] [address] [place] [phone] Dawn Hilario MD [address] [place] [address] COLONOSCOPY FLEXIBLE PROXIMAL DIAGNOSTIC 07/15/2024 2:00 PM EDT Office Visit Gastroenterology, [facility] [address] [place] [address] Lynnette Christian CRNP [address] [place] [address] 07/29/2024 7:30 AM EDT Office Visit Pharmacy, [address] [place] [address] [place] [address] Pending Results Name Type Priority Associated Diagnoses Date /Time CULTURE, TISSUE, AEROBIC AND ANAEROBIC Lab Routine Atherosclerosis of chitina artery of right lower extremity with ulceration of other part of foot (HCC) Diabetes mellitus with complication (HCC) Small vessel disease (HCC) Dyslipidemia, goal LDL below 100 Diabetic ulcer of 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, with necrosis of bone (HCC) 03/15/2024 3:23 PM EST Scheduled Orders Name Type Priority Associated Diagnoses Orde r Schedule GLUCOSE METER, POINT OF CARE (COMMUNICATION ORDER) Point of Care Testing STAT Perform Now for 1 Occurrences starting 03/15/2024 until 03/15/2024 VASC PROCEDURE IN VASCULAR ANGIO SUITE Medical Imaging Routine One Time for 1 Occurrences starting 03/15/2024 until 03/15/2024 MRSA SCREEN, PCR Lab Routine One Time for 1 Occurrences starting 03/15/2024 until 03/15/2024 Scheduled Procedures Name Priority Associated Diagnoses Date/Ti [...] this encounter Medical Devices Implanted Type Area Estimator Device Identifier Shelf Expiration Date Model / Serial / Lot Filter Navalign Femoral Tulip - [id number] Implanted:Qty: 1 on 04/21/2010 at [place] [facility] [place] Right: Inferior Vena Cava COOK : [employer] 04/12/2013 [id number] / / [id number] [place] Acetabular Liner +4 [id number] Id 52mm Od Implanted:Qty: 1 on 04/22/2010 at [place] [facility] [place] Right: Hip 03/16/2015 [id number] / / [id number] Stem [place] Por Tpr Stdoff S6 - [id number] Implanted:Qty: 1 on 04/22/2010 at [place] [facility] [place] Right: Hip JNJ : [employer] 02/14/2020 [id number] / / [id number] Head Mtl Artic Edwardo 36mm Pl5 - [id number] Implanted:Qty: 1 on 04/22/2010 at [place] [facility] [place] Right: Hip JNJ : [employer] 12/14/2014 [id number] / / [id number] Cup Fem Acet [place] 300 52mm - [id number] Implanted:Qty: 1 on 04/22/2010 at [place] [facility] [place] Right: Hip JNJ : [employer] [id number] / / [id number] Screw Selftap 3.5x55 204.855 - [id number] Implanted:Qty: 1 on 04/22/2010 at [facility] Right: Hip SYNTHES 204.855 / / Screw Canc 4mm 206.065 - [id number] Implanted:Qty: 1 on 04/22/2010 at [facility] Right: Hip SYNTHES 206.065 / / Screw Canc [place] 6.5x50mm - [id number] Implanted:Qty: 1 on 04/22/2010 at [place] [facility] [place] Right: Hip JNJ : [employer] [id number] / / [id number] Screw Canc [place] 6.5x30mm - [id number] Implanted:Qty: 1 on 04/22/2010 at [place] [facility] [place] Right: Hip JNJ : [employer] 02/14/2020 [id number] / / [id number] Screw Selftap 3.5x55 204.855 - [id number] Implanted:Qty: 2 on 04/22/2010 at [place] [facility] [place] Right: Hip SYNTHES 204.855 / / Screw Canc 4mm 206.065 - [id number] Implanted:Qty: 1 on 04/22/2010 at [place] [facility] [place] Right: Hip SYNTHES 206.065 / / Screw Canc [place] 6.5x15mm - [id number] Implanted:Qty: 1 on 04/22/2010 at [place] [facility] [place] Right: Hip JNJ : [employer] 02/14/2020 [id number] / / [id number] Lens 20.5 [id number] - [id number] - [id number] Implanted:Qty: 1 on 10/14/2020 by Lester Livingston DO at OR [facility] Right: Eye DUANE : SURGICAL 2025 [id number] / [id number] / Lens 20.0 [id number] - [id number] - [id number] Implanted:Qty: 1 on 12/09/2020 by Lester Livingston DO at OR [facility] Left: Eye DUANE : SURGICAL 07/13/2025 [id number] / [id number] / documented as of this encounter Procedures Procedure Name Priority Date/Time Associated Diagnosis Comments GLUCOSE METER, POINT OF CARE [facility] 03/17/2024 7:18 AM EST VANCOMYCIN RANDOM Timed 03/17/2024 6:1 2 AM EST GLUCOSE METER, POINT OF CARE [facility] 03/16/2024 9:03 PM EST GLUCOSE METER, POINT OF CARE [facility] 03/16/2024 4:42 PM EST GLUCOSE METER, POINT OF CARE [facility] 03/16/2024 10:51 AM EST GLUCOSE METER, POINT OF CARE [facility] 03/16/2024 7:22 AM EST GLUCOSE METER, POINT OF CARE [facility] 03/15/2024 10:12 PM EST CBC Routine 03/15/2024 7:45 PM EST GLUCOSE METER, POINT OF CARE [facility] 03/15/2024 3:52 PM EST CULTURE, TISSUE, AEROBIC AND ANAEROBIC Routine 03/15/2024 3:23 PM EST Atherosclerosis of chitina artery of right lower extremity with ulceration of other part of foot (HCC) Diabetes mellitus with complication (HCC) Small vessel disease (HCC) Dyslipidemia, goal LDL below 100 Diabetic ulcer of 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, with necrosis of bone (HCC) GLUCOSE METER, POINT OF CARE [facility] 03/15/2024 1:31 PM EST documented in this encounter Results * (ABNORMAL) GLUCOSE METER, POINT OF CARE (03/17/2024 7:18 AM EST) Glucose - POCT 162(H) 70 - 120 mg/dL 03/17/2024 12:07 PM EST [facility] Blood Whole blood specimen / Unknown 03/17/2024 7:18 AM EST 03/17/2024 12:07 PM EST us Manoj Chan MD LAB POINT OF CARE T EST DOCKED DEVICE UNSOLICITED RESULTS Final Result [facility] [address] [place] [address] * VANCOMYCIN RANDOM (03/17/2024 6:12 AM EST) Vancomycin Random 24.7 10.0 - 40.0 ug/mL 03/17/2024 7:00 AM EST [facility] Blood Venous blood specimen / Unknown Venipuncture / Unknown 03/17/2024 6:12 AM EST 03/17/2024 6:29 AM EST us Manoj Chan MD LAB BLOOD ORDERABLES Final Result LABORATORY [facility] [address] [place] [address] * (ABNORMAL) GLUCOSE METER, POINT OF CARE (03/16/2024 9:03 PM EST) Glucose - POCT 250(H) 70 - 120 mg/dL 03/16/2024 9:13 PM EST [facility] Blood Whole blood specimen / Unknown 03/16/2024 9:03 PM EST 03/16/2024 9:12 PM EST us Manoj Chan MD LAB POINT OF CARE T EST DOCKED DEVICE UNSOLICITED RESULTS Final Result Performing Organization Address [facility]/ZIP Co de Phone Number [facility] [address] [place] [address] * (ABNORMAL) GLUCOSE METER, POINT OF CARE (03/16/2024 4:42 PM EST) Glucose - POCT 240(H) 70 - 120 mg/dL 03/16/2024 4:52 PM EST [facility] Blood Whole blood specimen / Unknown 03/16/2024 4:42 PM EST 03/16/2024 4:52 PM EST us Manoj Chan MD LAB POINT OF CARE T EST DOCKED DEVICE UNSOLICITED RESULTS Final Result Performing Organization Address City/[facility]/ZIP Co de Phone Number [facility] [address] [place] [address] * (ABNORMAL) GLUCOSE METER, POINT OF CARE (03/16/2024 10:51 AM EST) Glucose - POCT 262(H) 70 - 120 mg/dL 03/16/2024 11:02 AM EST [facility] Blood Whole blood specimen / Unknown 03/16/2024 10:51 AM EST 03/16/2024 11:02 AM EST us Manoj Chan MD LAB POINT OF CARE T EST DOCKED DEVICE UNSOLICITED RESULTS Final Result Performing Organization Address City/[facility]/ZIP Co de Phone Number [facility] [address] [place] [address] * (ABNORMAL) GLUCOSE METER, POINT OF CARE (03/16/2024 7:22 AM EST) Glucose - POCT 169(H) 70 - 120 mg/dL 03/16/2024 7:33 AM EST [facility] Blood Whole blood specimen / Unknown 03/16/2024 7:22 AM EST 03/16/2024 7:33 AM EST us Manoj Chan MD LAB POINT OF CARE T EST DOCKED DEVICE UNSOLICITED RESULTS Final Result Performing Organization Address [facility]/ZIP Co de Phone Number [facility] [address] [place] [address] * (ABNORMAL) GLUCOSE METER, POINT OF CARE (03/15/2024 10:12 PM EST) Glucose - POCT 286(H) 70 - 120 mg/dL 03/15/2024 10:15 PM EST [facility] Blood Whole blood specimen / Unknown 03/15/2024 10:12 PM EST 03/15/2024 10:15 PM EST us Manoj Chan MD LAB POINT OF CARE T EST DOCKED DEVICE UNSOLICITED RESULTS Final Result Performing Organization Address City/[facility]/ZIP Co de Phone Number [facility] [address] [place] [address] * (ABNORMAL) CBC (03/15/2024 7:45 PM EST) WBC 11.72(H) 4.00 - 10.80 K/uL 03/15/2024 8:10 PM EST [facility] RBC 5.32 4.50 - 5.25 M/uL 03/15/2024 8:10 PM EST [facility] HGB 14.6 14.0 - 16.8 g/dL 03/15/2024 8:10 PM EST [facility] HCT 46.5 40.0 - 48.4 % 03/15/2024 8:10 PM EST [facility] MCV 87.4 82.0 - 99.5 fL 03/15/2024 8:10 PM EST [facility] MCH 27.4 27.0 - 34.0 pg 03/15/2024 8:10 PM EST [facility] MCHC 31.4 32.0 - 36.0 g/dL 03/15/2024 8:10 PM EST [facility] RDW 14.0 11.5 - 15.5 % 03/15/2024 8:10 PM EST [facility] PLT 267 140 - 400 K/uL 03/15/2024 8:10 PM EST [facility] MPV 11.3 6.6 - 11.1 fL 03/15/2024 8:10 PM EST LABORATORY [facility] nRBCs 0 <=0 /100 WBCs 03/15/2024 8:10 PM EST LABORATORY [facility] Blood Venous blood specimen / Unknown Venipuncture / Unknown 03/15/2024 7:45 PM EST 03/15/2024 8:00 PM EST us Robin Whaley MD LAB BLOOD ORDERABLES Final Resul t Performing Organization Address City/State/[facility] Co de Phone Number LABORATORY [facility] [address] [place] [address] * (ABNORMAL) GLUCOSE METER, POINT OF CARE (03/15/2024 3:52 PM EST) [facility] Glucose - POCT 130(H) 70 - 120 mg/dL 03/15/2024 3:55 PM EST [facility] Blood Whole blood specimen / Unknown 03/15/2024 3:52 PM EST 03/15/2024 3:55 PM EST us Manoj Chan MD LAB POINT OF CARE T EST DOCKED DEVICE UNSOLICITED RESULTS Final Result [facility] [address] [place] [address] * GLUCOSE METER, POINT OF CARE (03/15/2024 1:31 PM EST) [facility] Glucose - POCT 98 70 - 120 mg/dL 03/15/2024 2:35 PM EST [facility] [employer] [facility] Blood Whole blood specimen / Unknown 03/15/2024 1:31 PM EST 03/15/2024 2:35 PM EST Manoj Chan MD LAB POINT OF CARE T EST DOCKED DEVICE UNSOLICITED RESULTS Final Result [facility] [address] [place] [address] documented in this encounter Visit Diagnoses Diagnosis Diabetic ulcer of 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, with necrosis of bone (HCC)- Primary Diabetic ulcer of 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, with necrosis of bone (HCC) Small vessel disease (HCC) Peripheral vascular disease, unspecified PAD (peripheral artery disease) (HCC) Peripheral vascular disease, unspecified Atherosclerosis of chitina artery of right lower extremity with ulceration of other part of foot (HCC) Diabetes mellitus with complication (HCC) Type II or unspecified type diabetes mellitus with unspecified complication, not stated as uncontrolled Dyslipidemia, goal LDL below 100 Other and unspecified hyperlipidemia Amputation at midfoot, right, initial encounter (HCC) Atherosclerosis of chitina artery of extremity (HCC) Atherosclerosis of chitina arteries of the extremities, unspecified Diabetes mellitus with complication (HCC) Type II or unspecified type diabetes mellitus with unspecified complication, not stated as uncontrolled Small vessel disease (HCC) Peripheral vascular disease, unspecified Dyslipidemia, goal LDL below 100 Other and unspecified hyperlipidemia Diarrhea, unspecified type documented in this encounter Administered Medications Inactive Administered Medications - up to 3 most recent administrations Medication Order MAR Action Action Date Dose Rate Site amLODIPine (Norvasc) tab 5 mg 5 mg, Oral, Daily(AM), First dose on 03/16/24 at 0900, Until Discontinued Given 03/17/2024 7:39 AM EST 5 mg Given 03/16/2024 8:36 AM EST 5 mg aspirin enteric coated tab 81 mg 81 mg, Oral, Daily(AM), First dose on 03/16/24 at 0900, Until Discontinued, This med should NOT be Crushed or Chewed Given 03/17/2024 7:39 AM EST 81 mg Given 03/16/2024 8:36 AM EST 81 mg atorvaSTATin (Lipitor) tab 40 mg 40 mg, Oral, Daily(AM), First dose on 03/16/24 at 0900, Until Discontinued Given 03/17/2024 7:39 AM EST 40 mg Given 03/16/2024 8:36 AM EST 40 mg Famotidine (Pepcid) tab 20 mg 20 mg, Oral, Daily(AM), First dose on 03/16/24 at 0900, Until Discontinued, Hold while NPO, Begin once taking PO, Post-op Given 03/17/2024 7:39 AM EST 20 mg Given 03/16/2024 8:36 AM EST 20 mg fentaNYL (PF) inj 50 mcg 50 mcg, IV Push, Q5 MIN PRN Other, sedation for block placement, Starting on Mon03/15/24 at 1241, Until Mon03/17/24 at 1547, For 2 doses, Maximum 100 mcg. Preop Anesthesia Block When given IV Push its recommended that the dose be given over 3 to 5 minutes., Pre-Op hEParin inj 5,000 Units 5,000 Units, Subcutaneous, Q8H, First dose on 03/16/24 at 0600, Until Discontinued, Post-op Given 03/17/2024 5:11 AM EST 5,000 Units Abdomen Right Lower Given 03/16/2024 9:22 PM EST 5,000 Units A bdomen Left Lower Given 03/16/2024 2:57 PM EST 5,000 Units A bdomen Right Lower insulin aspart (NovoLOG) inj Subcutaneous, W/MEALS AND HS, First dose on Mon03/15/24 at 1700, Until Discontinued, MEDIUM DOSE (Usual starting dose): Sliding Scale Correctional insulin may be given if the patient is NPO. Dose based on standard build from Insulin Calculator. Do not modify insulin doses in administration instructions!, Glucose less than 70 instructions: Obtain STAT lab blood glucose and call covering provider., Glucose 80-150 (units): 0, Glucose 151-200 (units): 2, Glucose 201-250 (units): 4, Glucose 251-300 (units): 6, Glucose greater than 300 (units): 8, Glucose greater than 300 instructions: Give suggested insulin dose and call covering provider. Given 03/17/2024 7:38 AM EST 2 Units Arm Right Upper Given 03/16/2024 9:22 PM EST 4 Units Ab domen Left Lower Given 03/16/2024 5:06 PM EST 4 Units Ar m Right Upper Isolyte-S pH 7.4 infusion Intravenous, at 25 mL/hr, Plasma-LYTE 148, isolyte-S, and isolyte-S pH 7.4 are considered equivalent - including for MAR barcode scanning., CONTINUOUS, Starting on Mon03/15/24 at 1315, Until 03/16/24 at 0658, Pre-OpIndications:Diabetic ulcer of 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, with necrosis of bone (HCC),Small vessel disease (HCC),PAD (peripheral artery disease) (HCC) Continue from Pre-Op 03/15/2024 2:16 PM EST 25 mL/hr New Bag 03/15/2024 1:40 PM EST 25 mL/hr lidocaine 1 % inj 1 mg 1 mg (0.1 mL), Percutaneous, ONCE PRN Other, Difficult IV starts requiring > 20 guage catheter and/ or by patient request, Starting on Mon03/15/24 at 1241, Until Mon03/15/24 at 1340, For 1 dose, Pre-Op Given 03/15/2024 1:40 PM EST 1 mg Lisinopril (Prinivil) tab 40 mg 40 mg, Oral, Daily(AM), First dose on 03/16/24 at 0900, Until Discontinued Given 03/17/2024 7:39 AM EST 40 mg Given 03/16/2024 8:36 AM EST 40 mg midazolam (Versed) 2 MG/2ML inj 2 mg 2 mg, IV Push, Q2 MIN PRN sedation for block placement , Starting on Mon03/15/24 at 1241, Until 03/17/24 at 1547, For 2 doses, Preop Anesthesia Block, Pre-Op morphine sulfate inj 2 mg 2 mg, IV Push, Q2H PRN Pain, Severe, Starting on Mon03/15/24 at 1534, Until Mon03/17/24 at 1547, Post-op NSS 0.9% 500 mL bolus infusion Intravenous, at 500 mL/hr Administer over 60 Minutes, Administer entire volume within 60 minutes or less., PRN, 2 doses, Starting on Mon03/15/24 at 1534, Until Mon03/17/24 at 1547, Hypotension, Systolic Blood pressure less than 100, Post-op ondansetron (Zofran) inj 4 mg 4 mg, Intravenous, Q6H PRN Nausea, Starting on Mon03/15/24 at 1534, Until Mon03/17/24 at 1547, Post-op oxyCODONE-acetaminophen 5-325 mg per tab (Percocet) 1 Tablet 1 Tablet, Oral, Q4H PRN Pain, Mild, Starting on Mon03/15/24 at 1534, Until Mon03/17/24 at 1547, Maximum of 4 grams (4000 mg) of acetaminophen per day, Post-op oxyCODONE-acetaminophen 5-325 mg per tab (Percocet) 2 Tablet 2 Tablet, Oral, Q4H PRN Pain, Moderate, Starting on Mon03/15/24 at 1534, Until Mon03/17/24 at 1547, Maximum of 4 grams (4000 mg) of acetaminophen per day, Post-op Given 03/17/2024 7:38 AM EST 2 Tabl ets Given 03/17/2024 1:16 AM EST 2 Tablets Given 03/16/2024 6:39 PM EST 2 Tablets oxygen GAS Inhalation, OXYGEN, First dose on Mon03/15/24 at 1600, Until Discontinued, Device/Managed by: Low Flow Device, Goal SPO2 (%): 91-95, Starting Device: Nasal Cannula, Initial Flow Rate (LPM): 2, Lowest Support: Nasal Cannula: Flow 0-6 LPM. Titrate up/down by 1 LPM., Titration Interval: Q2 minutes and as needed., Notify Provider: For sudden DECREASE in resting SPO2 to less than 85% and when escalating delivery device., Wean patient off Oxygen when the oxygen saturation is greater than or equal to 93% Oxygen On 03/15/2024 2:00 PM EST 3 L/min(Oxygen) Piperacillin-Tazobactam (Zosyn) 4.5 g in 100 mL NSS ivpb (FOUR hour infusion) IV Piggyback, 4.5 g, Q8HNOW, 15 doses, First dose on Mon03/15/24 at 2100, Last dose on Mon03/20/24 at 1300, Administer over 4 Hours, at 26.25 mL/hr New 03/17/2024 5:14 AM EST 4.5 g 26.25 mL/hr New 03/16/2024 9:30 PM EST 4.5 g 26.25 mL/hr New 03/16/2024 1:40 PM EST 4.5 g 26.25 mL/hr Piperacillin-Tazobactam (Zosyn) 4.5 g in 100 mL NSS ivpb (HALF hour infusion) IV Piggyback, 4.5 g, ONCE, 1 dose, On Mon03/15/24 at 1630, Administer over 30 Minutes New 03/15/2024 5:17 PM EST 4.5 g 210 mL/hr sodium chloride 0.9 % flush peripheral tracey 3 mL 3 mL, IV Push, Q8H, First dose on Mon03/15/24 at 2200, Until Discontinued, Do not flush if lock, PICC, or central line not in place; IV infusing or unable to flush., Post-op Given 03/17/2024 6:00 AM EST 3 mL Given 03/16/2024 10:00 PM EST 3 mL Given 03/16/2024 6:00 AM EST 3 mL Vancomycin (Vancocin) 1,500 mg in NSS 250 mL ivpb 1,500 mg, IV Piggyback, [id number], First dose on Mon03/16/24 at 0200, Until Discontinued New 03/17/2024 2:05 AM EST 1,500 mg 180 mL/hr New 03/16/2024 1:56 PM EST 1,500 mg 180 mL/hr New 03/16/2024 2:18 AM EST 1,500 mg 180 mL/hr Vancomycin (Vancocin) 2,250 mg in NSS 500 mL ivpb 2,250 mg, IV Piggyback, ONCE, 1 dose, On Mon03/15/24 at 1700 New 03/15/2024 6:12 PM EST 2,250 mg 21 3 mL/hr documented in this encounter Active and Recently Administered Medications Times are shown in EST. Scheduled Medication Order 03/15/2024 03/16/2024 03/17/2024 amLODIPine (Norvasc) tab 5 mg 5 mg, Oral, Daily(AM), First dose on 03/16/24 at 0900, Until Discontinued 0836 (Given - Provider: Marguerite Collins, PASTORA) 0739 (Given - Provider: Kaylene Sainz, RN) aspirin enteric coated tab 81 mg 81 mg, Oral, Daily(AM), First dose on 03/16/24 at 0900, Until Discontinued, This med should NOT be Crushed or Chewed 0836 (Given - Provider: Marguerite Collins RN) 07 (Given - Provider: Kaylene Sainz, RN) atorvaSTATin (Lipitor) tab 40 mg 40 mg, Oral, Daily(AM), First dose on 03/16/24 at 0900, Until Discontinued 08 (Given - Provider: Marguerite Collins RN) 07 (Given - Provider: Kaylene Sainz, RN) ceFAZolin in dextrose (Ancef) ivpb 2 g (COMPLETED) 2 g, IV Piggyback, PREOP, 1 dose, First dose on Mon03/15/24 at 1315, Administer 60 minutes prior to skin incision, Pre-Op 1434 (Given - Provider: Checo Robertson CRNA) Drug Level Check - Vancomycin Random ONCE - TIMED LAB, 1 dose, First dose on Mon03/17/24 at 0600, Routine, Jasiel as Order Check Addressed once lab level is drawn. If antibiotic time changes, please contact the Pharmacy to adjust Lab and Drug Level Check times. 0600 (Order Check Addressed - Provider: Yessenia Fowler RN) Famotidine (Pepcid) tab 20 mg 20 mg, Oral, Daily(AM), First dose on 03/16/24 at 0900, Until Discontinued, Hold while NPO, Begin once taking PO, Post-op 0836 (Given - Provider: Marguerite Collins RN) 07 (Given - Provider: Kaylene Sainz RN) hEParin inj 5,000 Units 5,000 Units, Subcutaneous, Q8H, First dose on Mon03/16/24 at 0600, Until Discontinued, Post-op 0637 (Given - Provider: Flaquito Neal RN)1457 (Given - Provider: Kaylene Sainz, RN)2122 (Given - Provider: Yessenia Fowler, RN) 0511 (Given - Provider: Yessenia Fowler, PASTORA) insulin aspart (NovoLOG) inj Subcutaneous, W/MEALS AND HS, First dose on Mon03/15/24 at 1700, Until Discontinued, MEDIUM DOSE (Usual starting dose): Sliding Scale Correctional insulin may be given if the patient is NPO. Dose based on standard build from Insulin Calculator. Do not modify insulin doses in administration instructions!, Glucose less than 70 instructions: Obtain STAT lab blood glucose and call covering provider., Glucose 80-150 (units): 0, Glucose 151-200 (units): 2, Glucose 201-250 (units): 4, Glucose 251-300 (units): 6, Glucose greater than 300 (units): 8, Glucose greater than 300 instructions: Give suggested insulin dose and call covering provider. 1700 (No Insulin - Provider: Jluianna Romero RN - Reason: Parameter(s) Not Met)2221 (Given - Provider: Flaquito Neal RN) 0904 (Given - Provider: Marguerite Collins, PASTORA)1257 (Given - Provider: Marguerite Collins, RN)1706 (Given - Provider: Kaylene Sainz, RN)2122 (Given - Provider: Yessenia Fowler, PASTORA) 0738 (Given - Provider: Kaylene Sainz, RN) Lisinopril (Prinivil) tab 40 mg 40 mg, Oral, Daily(AM), First dose on Mon03/16/24 at 0900, Until Discontinued 0836 (Given - Provider: Marguerite Collins RN) 0739 (Given - Provider: Kaylene Sainz, RN) oxygen GAS Inhalation, OXYGEN, First dose on Mon03/15/24 at 1600, Until Discontinued, Device/Managed by: Low Flow Device, Goal SPO2 (%): 91-95, Starting Device: Nasal Cannula, Initial Flow Rate (LPM): 2, Lowest Support: Nasal Cannula: Flow 0-6 LPM. Titrate up/down by 1 LPM., Titration Interval: Q2 minutes and as needed., Notify Provider: For sudden DECREASE in resting SPO2 to less than 85% and when escalating delivery device., Wean patient off Oxygen when the oxygen saturation is greater than or equal to 93% 1400 (Oxygen On - Provider: Belkis Gurrola, RN)1600 (Oxygen Off - Provider: Julianna Romero, PASTORA) 0000 (Oxygen Off - Provider: Flaquito Nela RN)0700 (Oxygen Off - Provider: Marguerite Collins, RN)1600 (Oxygen Off - Provider: Kaylene Sainz, RN) 0000 (Oxygen Off - Provider: Yessenia Fowler, PASTORA)0800 (Oxygen Off - Provider: Kaylene Sainz RN) Piperacillin-Tazobactam (Zosyn) 4.5 g in 100 mL NSS ivpb (FOUR hour infusion) IV Piggyback, 4.5 g, Q8HNOW, 15 doses, First dose on Mon03/15/24 at 2100, Last dose on Mon03/20/24 at 1300, Administer over 4 Hours, at 26.25 mL/hr 2224 (New Bag - Provider: Flaquito Neal RN) 0627 (New Bag - Provider: Flaquito Neal RN)0920 (Rate Verify - Provider: Marguerite Collins, RN)1340 (New Bag - Provider: Marguerite Collins, RN)2130 (New Bag - Provider: Yessenia Fowler, PASTORA) 0514 (New Bag - Provider: Yessenia Fowler, PASTORA)1547 (Due: Stopped) Piperacillin-Tazobactam (Zosyn) 4.5 g in 100 mL NSS ivpb (HALF hour infusion) (COMPLETED) IV Piggyback, 4.5 g, ONCE, 1 dose, On Mon03/15/24 at 1630, Administer over 30 Minutes 1717 (New Bag - Provider: Rebecca Steven RN) sodium chloride 0.9 % flush peripheral tracey 3 mL 3 mL, IV Push, Q8H, First dose on Mon03/15/24 at 2200, Until Discontinued, Do not flush if lock, PICC, or central line not in place; IV infusing or unable to flush., Post-op 2200 (Given - Provider: Flaquito Neal RN) 0600 (Given - Provider: Flaquito Neal RN)1400 (Not Given - Provider: Evelyne Nieto RN - Reason: Parameter(s) Not Met - Comment: fluids infusing)2200 (Given - Provider: Yessenia Fowler, PASTORA) 0600 (Given - Provider: Yessenia Fowler, PASTORA) Vancomycin (Vancocin) 1,500 mg in NSS 250 mL ivpb 1,500 mg, IV Piggyback, [id number], First dose on 03/16/24 at 0200, Until Discontinued 0218 (New Bag - Provider: Flaquito Neal RN)1356 (New Bag - Provider: Marguerite Collins, PASTORA) 0205 (New Bag - Provider: Yessenia Fowler, PASTORA)1547 (Due: Stopped) Vancomycin (Vancocin) 2,250 mg in NSS 500 mL ivpb (COMPLETED) 2,250 mg, IV Piggyback, ONCE, 1 dose, On Mon03/15/24 at 1700 1812 (New Bag - Provider: Julianna Romero RN) Continuous Medication Order 03/15/2024 03/16/2024 03/17/2024 Isolyte-S pH 7.4 infusion (CANCELED) Intravenous, at 25 mL/hr, Plasma-LYTE 148, isolyte-S, and isolyte-S pH 7.4 are considered equivalent - including for MAR barcode scanning., CONTINUOUS, Starting on Mon03/15/24 at 1315, Until 03/16/24 at 0658, Pre-Op 1340 (New Bag - Provider: Magaly Langley RN)1416 (Continue from Pre-Op - Provider: Checo Robertson CRNA)1536 (Anes Intra-Op Fluid - Provider: Checo Robertson CRNA) PRN Medication Order 03/15/2024 03/16/2024 03/17/2024 ceFAZolin 1,000 mg in sodium chloride IR 0.9 % 500 mL irrigation (CANCELED) ONCE PRN INTRA PROCEDURE, Starting on Mon03/15/24 at 1507, Until Mon03/15/24 at 1545, Intra-Op 1507 (Given - Provider: Manoj Chan MD - Comment: prn intra-op irrigatiom) dextrose 50% inj 25 mL 25 mL, IV Push, PRN Hypoglycemia, Other, For blood glucose 54 - 69 mg/dL or 70 - 100 mg/dL with symptoms AND patient is unresponsive, NPO, OR unable to swallow, Starting on Mon03/15/24 at 1537, Until Mon03/17/24 at 1547, Administer IV. Recheck blood glucose after 15 minutes. Notify provider. dextrose 50% inj 50 mL 50 mL, IV Push, PRN Hypoglycemia, Other, For blood glucose below 54 mg/dL AND patient unresponsive, NPO, OR unable to swallow, Starting on Mon03/15/24 at 1537, Until Mon03/17/24 at 1547, Administer IV. Recheck blood glucose in 15 minutes. Notify provider. fentaNYL (PF) inj 50 mcg 50 mcg, IV Push, Q5 MIN PRN Other, sedation for block placement, Starting on Mon03/15/24 at 1241, Until Mon03/17/24 at 1547, For 2 doses, Maximum 100 mcg. Preop Anesthesia Block When given IV Push its recommended that the dose be given over 3 to 5 minutes., Pre-Op glucagon (Glucagen) inj 1 mg 1 mg, Intramuscular, PRN Hypoglycemia, Other, If patient is unresponsive, or NPO and has no IV access, Starting on Mon03/15/24 at 1537, Until Mon03/17/24 at 1547, NPO and no IV access with either 1) blood glucose less than 100 mg/dL and symptomatic OR 2) blood glucose less than 70 mg/dL and asymptomatic Glucose (Glutose 15) 40 % gel 15 g of glucose 15 g of glucose, Oral, PRN Hypoglycemia (low sugar), Other, For blood glucose 54 - 69 mg/dL or 70 - 100 mg/dL with symptoms AND patient alert WITH difficulty chewing/swallowing, Starting on Mon03/15/24 at 1537, Until Mon03/17/24 at 1547, Administer gel. Recheck blood glucose after 15 minutes. Notify provider. 37.5 gram tube = 15 grams glucose = 1 each Glucose (Glutose 15) 40 % gel 30 g of glucose 30 g of glucose, Oral, PRN Hypoglycemia (low sugar), Other, For blood glucose below 54 mg/dL AND patient alert WITH difficulty chewing/swallowing, Starting on Mon03/15/24 at 1537, Until Mon03/17/24 at 1547, Administer gel. Recheck blood glucose after 15 minutes. Notify provider. 37.5 gram tube = 15 grams glucose = 1 each glucose chew tab 16 g 16 g, Oral, PRN Hypoglycemia, Other, For blood glucose 54 - 69 mg/dL or 70 - 100 mg/dL with symptoms and patient alert without difficulty chewing/swallowing., Starting on Mon03/15/24 at 1537, Until Mon03/17/24 at 1547 lidocaine 1 % inj 1 mg (COMPLETED) 1 mg (0.1 mL), Percutaneous, ONCE PRN Other, Difficult IV starts requiring > 20 guage catheter and/ or by patient request, Starting on Mon03/15/24 at 1241, Until Mon03/15/24 at 1340, For 1 dose, Pre-Op 1340 (Given - Provider: Magaly Langley RN) midazolam (Versed) 2 MG/2ML inj 2 mg 2 mg, IV Push, Q2 MIN PRN sedation for block placement , Starting on Mon03/15/24 at 1241, Until Mon03/17/24 at 1547, For 2 doses, Preop Anesthesia Block, Pre-Op morphine sulfate inj 2 mg 2 mg, IV Push, Q2H PRN Pain, Severe, Starting on Mon03/15/24 at 1534, Until Mon03/17/24 at 1547, Post-op NSS 0.9% 500 mL bolus infusion Intravenous, at 500 mL/hr Administer over 60 Minutes, Administer entire volume within 60 minutes or less., PRN, 2 doses, Starting on Mon03/15/24 at 1534, Until Mon03/17/24 at 1547, Hypotension, Systolic Blood pressure less than 100, Post-op ondansetron (Zofran) inj 4 mg 4 mg, Intravenous, Q6H PRN Nausea, Starting on Mon03/15/24 at 1534, Until Mon03/17/24 at 1547, Post-op oxyCODONE-acetaminophen 5-325 mg per tab (Percocet) 1 Tablet 1 Tablet, Oral, Q4H PRN Pain, Mild, Starting on Mon03/15/24 at 1534, Until Mon03/17/24 at 1547, Maximum of 4 grams (4000 mg) of acetaminophen per day, Post-op oxyCODONE-acetaminophen 5-325 mg per tab (Percocet) 2 Tablet 2 Tablet, Oral, Q4H PRN Pain, Moderate, Starting on 03/15/24 at 1534, Until 03/17/24 at 1547, Maximum of 4 grams (4000 mg) of acetaminophen per day, Post-op 0638 (Given - Provider: Flaquito Neal, PASTORA)1301 (Given - Provider: Marguerite Collins, PASTORA)1839 (Given - Provider: Kaylene Sainz, RN) 0116 (Given - Provider: Yessenia Fowler, PASTORA)0738 (Given - Provider: Kaylene Sainz RN) documented in this encounter Advance Directives * [...] Directives occurred with: Not Discussed Care Teams Trichologist Relationship Specialty Start Date End Date Gabriele Dumas MD [address] [place] [address] [place] [address] PCP - General Family Medicine 06/04/21 documented as of this encounter
--- OUTSIDE RECORDS SUMMARY | 2024-03-23 11:46 | External Medical Summary ---
Author Name Unknown Address Unknown Organization K[facility] - [address] [place] [address] Laboratory Report Ordering Provider Test Date Status KAILYN KIMBALL 03/17/2024 06:12:00 Final Observation Date Value Abnormality Reference (Units ) Status Vancomycin, level 03/17/2024 06:12:00 24.7 10 .0-40.0 (ug/mL) Final Performing Location [facility] - [address] [place] [address]
--- OUTSIDE RECORDS SUMMARY | 2024-03-23 11:46 | External Medical Summary | Summary of Care ---
Author Name Unknown Organization [facility] Address [address] [place] [address] Phone [phone] Care Team Providers Care Casting Machine Control Board Operator Name Role Phone Gabriele Dumas MD Primary Care Provide r Reason for Visit * Reason Onset Date Comments Appointment 03/20/2024 Encounter Details Date Type Department Care Team (Late st Contact Info) Description 03/20/2024 Telephone Vascular Surg [facility] [address] [place] [address] Manoj Chan MD [address] [place] [address] Appointment Allergies Active Allergy Reactions Criticality Noted Date Comments Influenza Vaccines Neuro complications (Please comment) 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 (statuses [...] Tablet Delayed ReleaseIndicatio ns:PAD (peripheral artery disease) (HCC) Take 1 Tablet [...] Problem Noted Date Diagnosed Date Atherosclerosis of moapa artery of extremity Diabetes mellitus with complication [...] 04/28/2021 History of osteomyelitis 04/28/2021 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 documented in this encounter Plan of Treatment Upcoming Encounters Date Type Department Care Team (Late st Contact Info) Description 03/27/2024 9:30 AM EST Office Visit Vascular Surgery, [facility] [address] [facility] [place] [address] Mukund Ross MD [address] [place] [address] 04/05/2024 1:00 PM EST Appointment Vascular Lab [facility] [address] [place] [address] 04/05/2024 1:30 PM EST Appointment Vascular Lab [place] [address] [place] [address] 04/05/2024 2:20 PM EST Office Visit Vascular Surg [facility] [address] [place] [address] Manoj Chan MD [address] [place] [address] 05/13/2024 7:20 AM EDT Office Visit Family Medicine [address] [place] [phone] Gabriele Dumas MD [address] [place] [address] [place] [address] 05/24/2024 11:00 AM EDT Office Visit OphthalmologyAri [place] [address] Lester Livingston DO [address] [place] [address] 05/24/2024 1:00 PM EDT Hospital Encounter ENDO [facility], Endoscopy Room [facility] [address] [facility] [place] [phone] Dawn Hilario MD [address] [place] [address] [place] [address] 05/24/2024 1:00 PM EDT - 05/24/2024 1:30 PM EDT Surgery ENDO [facility], Endoscopy Room [facility] [address] [place] [phone] Dawn Hilario MD [address] [place] [address] COLONOSCOPY FLEXIBLE PROXIMAL DIAGNOSTIC 07/15/2024 2:00 PM EDT Office Visit Gastroenterology, [facility] [address] [place] [address] Lynnette Christian CRNP [address] [place] [address] 07/29/2024 7:30 AM EDT Office Visit Pharmacy, [address] [place] [address] [place] [address] Scheduled Procedures Name Priority Associated Diagnoses Date/Ti [...] 02/20/2020, Additional history exists HbA1c 08/05/2024 02/05/2024, 110 05/2023, 10/25/2023, Additional history exists Diabetic Eye [...] this encounter Medical Devices Implanted Type Area Physician Office Clin Asst Device Identifier Shelf Expiration Date Model / Serial / Lot Filter Navalign Femoral Tulip - [id number] Implanted:Qty: 1 on 04/21/2010 at [place] [facility] [place]: Inferior Vena Cava COOK : [employer] 04/12/2013 [id number] / / [id number] [place] Acetabular Liner +4 [id number] 52mm Od Implanted:Qty: 1 on 04/22/2010 at [place] [facility] [place] Right: Hip 03/16/2015 [id number] / / [id number] Stem Nipomo Por Tpr Stdoff S6 - [id number] Implanted:Qty: 1 on 04/22/2010 at [place] [facility] [place] Right: Hip JNJ : [employer] 02/14/2020 [id number] / / [id number] Head Mtl Artic Edwardo 36mm Pl5 - [id number] Implanted:Qty: 1 on 04/22/2010 at [place] [facility] [place] Right: Hip JNJ : [employer] 12/14/2014 [id number] / / [id number] Fem Acet [place] 300 52mm - [id number] Implanted:Qty: 1 on 04/22/2010 at [place] [facility] [place] Right: Hip JNJ : [employer] [id number] / / [id number] Screw Selftap 3.5x55 204.855 - [id number] Implanted:Qty: 1 on 04/22/2010 at [place] [facility] [place] Right: Hip SYNTHES 204.855 / / Screw Canc 4mm 206.065 - [id number] Implanted:Qty: 1 on 04/22/2010 at [place] [facility] [place] Right: Hip SYNTHES 206.065 / / Screw Canc [place] 6.5x50mm - [id number] Implanted:Qty: 1 on 04/22/2010 at [place] [facility] [place] Right: Hip JNJ : [employer] [id number] / / [id number] Screw Canc [place] 6.5x30mm - [id number] Implanted:Qty: 1 on 04/22/2010 at [place] [facility] [place] Right: Hip JNJ : [employer] 02/14/2020 [id number] / / [id number] Screw Selftap 3.5x55 204.855 - [id number] Implanted:Qty: 2 on 04/22/2010 at [place] [facility] [place] Right: Hip SYNTHES 204.855 / / Screw Canc 4mm 206.065 - [id number] Implanted:Qty: 1 on 04/22/2010 at [place] [facility] [place] Right: Hip SYNTHES 206.065 / / Screw Canc [place] 6.5x15mm - [id number] Implanted:Qty: 1 on 04/22/2010 at [place] [facility] [place] Right: Hip JNJ : [employer] 02/14/2020 [id number] / / [id number] Lens 20.5 [id number] - [id number] - [id number] Implanted:Qty: 1 on 10/14/2020 by Lester Livingston DO at OR [facility] Right: Eye DUANE : SURGICAL 2025 [id number] / [id number] / Lens 20.0 [id number] - [id number] - [id number] Implanted:Qty: 1 on 12/09/2020 by Lester Livingston DO at OR [facility] Left: Eye DUANE : SURGICAL 07/13/2025 [id number] / [id number] / documented as of this encounter [...] Directives occurred with: Not Discussed Care Teams Casting Machine Control Board Operator Relationship Specialty Start Date End Date Gabriele Dumas MD [address] [place] [address] [place] [phone] PCP - General Family Medicine 06/04/21 documented as of this encounter
--- OUTSIDE RECORDS SUMMARY | 2024-03-23 11:46 | External Medical Summary | Summary of Care ---
Author Name Unknown Organization [facility] Address [address] [place] [address] Phone [phone] Care Team Providers Care Maintenance Millwright Name Role Phone Gabriele Dumas MD Primary Care Provide r Reason for Visit * Reason Onset Date Comments Advice 03/18/2024 Encounter Details Date Type Department Care Team (Late st Contact Info) Description 03/18/2024 Telephone Vascular Surg [facility] [address] [place] [address] Services, [facility] [address] [place] [address] Advice Allergies Active Allergy Reactions Criticality Noted Date Comments Influenza Vaccines Neuro complications (Please comment) High 01/18/2013 Guilen-[place] syndrome documented as of this encounter (statuses as of 03/18/2024) Medications Atorvastatin Calcium 40 MG Oral Tablet (Lipitor) Take 1 Tablet by mouth in the morning. 90 Tablet 5 3 Active OneTouch Delica Lancets 33G Use to test blood sugars once daily DxE11.9 100 Each 3 3 Active Novofine Pen Needle 32G X 6 MM (NOVOFINE 32G PEN NEEDLE)Indication s:Type 2 diabetes mellitus with hemoglobin A1c goal of less than 8.0% ([facility]) Use it daily 100 Each 4 Active [...] as of this encounter (statuses as of 03/18/2024) Active Problems Problem Noted Date Diagnosed Date Atherosclerosis of [place] artery of extremity Diabetes mellitus with complication [...] 04/28/2021 History of osteomyelitis 04/28/2021 History of Guillain-[place] Stephen sy ndrome due to 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 04/28/2021 [...] as of this encounter (statuses as of 03/18/2024) Resolved Problems Problem Noted Date Diagnosed Date [...] as of this encounter (statuses as of 03/18/2024) Immunizations No known immunizationsdocumented as of this [...] would be delivered to his home from [employer] and the pt is wondering when he should be expecting that? documented in this encounter Plan of Treatment Upcoming Encounters Date Type Department Care Team (Late st Contact Info) Description 03/21/2024 9:00 AM EST Office Visit Vascular Surg [address] [address] Keven Maya CRNP [facility] [place] [address] 04/05/2024 1:00 PM EST Appointment Vascular Lab [address] [address] 04/05/2024 1:30 PM EST Appointment Vascular Lab [facility], [address] [address] 04/05/2024 2:20 PM EST Office Visit Vascular Surg [address] [address] Manoj Chan MD [facility] [place] [address] 05/13/2024 7:20 AM EDT Office Visit Family Medicine [address] [place] [phone] Gabriele Dumas MD [address] [place] [address] [place] [address] 05/24/2024 11:00 AM EDT Office Visit Ophthalmology, [address] [place] [address] [address] Lester Livingston DO [address] [place] [address] [address] 05/24/2024 1:00 PM EDT Hospital Encounter ENDO [facility], Endoscopy Room [facility] [address] [place] [phone] Dawn Hilario MD [address] [place] [address] 05/24/2024 1:00 PM EDT - 05/24/2024 1:30 PM EDT Surgery ENDO [facility], Endoscopy Room [facility] [address] [place] [id number] Dawn Hilario MD [address] [place] [address] COLONOSCOPY FLEXIBLE PROXIMAL DIAGNOSTIC 07/15/2024 2:00 PM EDT Office Visit Gastroenterology, [facility] [address] [place] [address] Lynnette Christian CRNP [address] [place] [address] 07/29/2024 7:30 AM EDT Office Visit Pharmacy, [address] [place] [address] [place] [address] Scheduled Procedures Name Priority Associated Diagnoses Date/Ti [...] this encounter Medical Devices Implanted Type Area Rollout Manager Device Identifier Shelf Expiration Date Model / Serial / Lot Filter Navalign Femoral Tulip - [id number] Implanted:Qty: 1 on 04/21/2010 [place] [facility] [place]: Inferior Vena Cava COOK : [employer] 04/12/2013 [id number] / / [id number] [place]xton Acetabular Liner +4 [id number] Id 52mm Od Implanted:Qty: 1 on 04/22/2010 [place] [facility] [place]: Hip 03/16/2015 1221-36-152 / / [id number] Stem Mcduffie Por Tpr Stdoff S6 - [id number] Implanted:Qty: 1 on 04/22/2010 at [place] [facility] [place] Right: Hip JNJ : [employer] 02/14/2020 [id number] / / [id number] Head Mtl Artic Edwadro 36mm Pl5 - [id number] Implanted:Qty: 1 on 04/22/2010 at [place] [facility] [place]: Hip JNJ : [employer] 12/14/2014 [id number] / / [id number] Cup Fem Acet [place] 300 52mm - [id number] Implanted:Qty: 1 on 04/22/2010 at [place] [facility] [place] Right: Hip JNJ : [employer] [id number] / / [id number] Screw Selftap 3.5x55 204.855 - [id number] Implanted:Qty: 1 on 04/22/2010 at [place] [facility] [place] Right: Hip SYNTHES 204.855 / / Screw Canc 4mm 206.065 - [id number] Implanted:Qty: 1 on 04/22/2010 at [place] [facility] [place] Right: Hip SYNTHES 206.065 / / Screw Canc Hi[place] 6.5x50mm - [id number] Implanted:Qty: 1 on 04/22/2010 at [place] [facility] [place] Right: Hip JNJ : [employer] [id number] / / [id number] Screw Canc Hi[place] 6.5x30mm - [id number] Implanted:Qty: 1 on 04/22/2010 at [place] [facility] [place] Right: Hip JNJ : [employer] 02/14/2020 [id number] / / [id number] Screw Selftap 3.5x55 204.855 - [id number] Implanted:Qty: 2 on 04/22/2010 at [place] [facility] [place] Right: Hip SYNTHES 204.855 / / Screw Canc 4mm 206.065 - [id number] Implanted:Qty: 1 on 04/22/2010 at [place] [facility] [place] Right: Hip SYNTHES 206.065 / / Screw Canc [place] 6.5x15mm - [id number] Implanted:Qty: 1 on 04/22/2010 at [place] [facility] [place] Right: Hip JNJ : [employer] 02/14/2020 [id number] / / [id number] Lens 20.5 [id number] - [id number] - [id number] Implanted:Qty: 1 on 10/14/2020 by Lester Livingston, DO at OR [facility] Right: Eye DUANE : SURGICAL 2025 [id number] / [id number] / Lens 20.0 [id number] - [id number] 086 - [id number] Implanted:Qty: 1 on 12/09/2020 by Lester Livingston, at OR [facility] Left: Eye DUANE : SURGICAL 07/13/2025 [id number] 0 / [id number] / documented as of this encounter [...] Directives occurred with: Not Discussed Care Teams Maintenance Millwright Relationship Specialty Start Date End Date Gabriele Dumas MD [address] [place] [address] [place] [address] PCP - General Family Medicine 06/04/21 documented as of this encounter
--- OUTSIDE RECORDS SUMMARY | 2024-03-23 11:46 | External Medical Summary | Summary of Care ---
Author Name Unknown Organization [facility] Address [address] [place] [address] Phone [phone] Care Team Providers Care Fruit Raiser Name Role Phone Gabriele Dumas MD Primary Care Provide r Reason for Visit * Reason Onset Date Comments Advice 03/18/2024 Encounter Details Date Type Department Care Team (Late st Contact Info) Description 03/18/2024 Telephone Vascular Surg [facility] [address] [place] [address] Services, [facility] [address] [place] [address] Advice Allergies Active Allergy Reactions Criticality Noted Date Comments Influenza Vaccines Neuro complications (Please comment) High 01/18/2013 Guilen-[place]ak[place] syndrome documented as of this encounter (statuses [...] hemoglobin A1c goal of less than 8.0% ([facility]) Use it daily 100 Each 4 Active [...] Problem Noted Date Diagnosed Date Atherosclerosis of [place] artery of extremity Diabetes mellitus with complication [...] 04/28/2021 History of osteomyelitis 04/28/2021 History of Guillain-Oakham sy ndrome due to 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 04/28/2021 [...] would be delivered to his home from [employer] and the pt is wondering when he should be expecting that? documented in this encounter Plan of Treatment Upcoming Encounters Date Type Department Care Team (Late st Contact Info) Description 03/21/2024 9:00 AM EST Office Visit Vascular Surg [address] [address] Keven Maya CRNP [facility] [place] [address] 04/05/2024 1:00 PM EST Appointment Vascular Lab [address] [address] 04/05/2024 1:30 PM EST Appointment Vascular Lab [facility], [address] [address] 04/05/2024 2:20 PM EST Office Visit Vascular Surg [address] [address] Manoj Chan MD [facility] [place] [address] 05/13/2024 7:20 AM EDT Office Visit Family Medicine [address] [place] [phone] Gabriele Dumas MD [address] [place] [address] [place] [address] 05/24/2024 11:00 AM EDT Office Visit Ophthalmology, [address] [place] [address] Lester Livingston DO [address] [place] [address] 05/24/2024 1:00 PM EDT Hospital Encounter ENDO [facility], Endoscopy Room [facility] [address] [place] [phone] Dawn Hilario MD [address] [place] [address] 05/24/2024 1:00 PM EDT - 05/24/2024 1:30 PM EDT Surgery ENDO [facility], Endoscopy Room [facility] [address] [place] [phone] Dawn Hilario MD [address] [place] [address] COLONOSCOPY FLEXIBLE PROXIMAL DIAGNOSTIC 07/15/2024 2:00 PM EDT Office Visit Gastroenterology, [facility] [address] [place] [address] Lynnette Christian CRNP [address] [place] [address] 07/29/2024 7:30 AM EDT Office Visit Pharmacy, [address] [place] [address] [place] [address] Scheduled Procedures Name Priority Associated Diagnoses Date/Ti [...] this encounter Medical Devices Implanted Type Area Sheriff'S Detective Device Identifier Shelf Expiration Date Model / Serial / Lot Filter Navalign Femoral Tulip - [id number] Implanted:Qty: 1 on 04/21/2010 [place] [facility] [place]: Inferior Vena Cava COOK : [employer] 04/12/2013 [id number] / / [id number] [place] Acetabular Liner +4 [id number] Id 52mm Od Implanted:Qty: 1 on 04/22/2010 [place] [facility] [place] Right: Hip 03/16/2015 1221-36-152 / / [id number] Stem Mckean Por Tpr Stdoff S6 - [id number] Implanted:Qty: 1 on 04/22/2010 at [place] [facility] [place] Right: Hip JNJ : [employer] 02/14/2020 [id number] / / [id number] Head Mtl Artic Edwardo 36mm Pl5 - [id number] Implanted:Qty: 1 on 04/22/2010 at [place] [facility] [place] Right: Hip JNJ : [employer] 12/14/2014 [id number] / / [id number] Cup Fem Acet [place] 300 52mm - [id number] Implanted:Qty: 1 on 04/22/2010 at [place] [facility] [place] Right: Hip JNJ : [employer] [id number] / / [id number] Screw Selftap 3.5x55 204.855 - [id number] Implanted:Qty: 1 on 04/22/2010 at [place] [facility] [place] Right: Hip SYNTHES 204.855 / / Screw Canc 4mm 206.065 - [id number] Implanted:Qty: 1 on 04/22/2010 at [place] [facility] [place] Right: Hip SYNTHES 206.065 / / Screw Canc [place] 6.5x50mm - [id number] Implanted:Qty: 1 on 04/22/2010 at [place] [facility] [place] Right: Hip JNJ : [employer] [id number] / / [id number] Screw Canc [place] 6.5x30mm - [id number] Implanted:Qty: 1 on 04/22/2010 at [place] [facility] [place] Right: Hip JNJ : [employer] 02/14/2020 [id number] / / [id number] Screw Selftap 3.5x55 204.855 - [id number] Implanted:Qty: 2 on 04/22/2010 at [place] [facility] [place] Right: Hip SYNTHES 204.855 / / Screw Canc 4mm 206.065 - [id number] Implanted:Qty: 1 on 04/22/2010 at [place] [facility] [place] Right: Hip SYNTHES 206.065 / / Screw Canc [place] 6.5x15mm - [id number] Implanted:Qty: 1 on 04/22/2010 at [place] [facility] [place] Right: Hip JNJ : [employer] 02/14/2020 [id number] / / [id number] Lens 20.5 [id number] - [id number] 039 - [id number] Implanted:Qty: 1 on 10/14/2020 by Lester Livingston, DO at OR [facility] Right: Eye DUANE : SURGICAL 2025 [id number] / [id number] / Lens 20.0 [id number] - [id number] 086 - [id number] Implanted:Qty: 1 on 12/09/2020 by Lester Livingston, at OR [facility] Left: Eye DUANE : SURGICAL 07/13/2025 [id number] 0 / [id number] / documented as of this encounter [...] Directives occurred with: Not Discussed Care Teams Fruit Raiser Relationship Specialty Start Date End Date Gabriele Dumas MD [address] [place] [address] [place] [address] PCP - General Family Medicine 06/04/21 documented as of this encounter
--- OUTSIDE RECORDS SUMMARY | 2024-03-23 11:46 | External Medical Summary ---
Author Name Unknown Address Unknown Organization : Laboratory Report Ordering Provider Test Date Status KAILYN KIMBALL 03/16/2024 16:42:12 Final Observation Date Value Abnormality Reference (Units ) Status Glucose Point of Care 03/16/2024 16:42:12 240 Above high normal 70-120 (mg/dL) Final Performing Location
--- OUTSIDE RECORDS SUMMARY | 2024-03-23 11:46 | External Medical Summary | Summary of Care ---
Author Name Unknown Organization [facility] Address [address] [place] [address] Phone [phone] Care Team Providers Care Supervisor [employer] Name Role Phone Gabriele Dumas MD Primary Care Provide r Reason for Visit * Reason Onset Date Comments Advice 03/18/2024 Encounter Details Date Type Department Care Team (Late st Contact Info) Description 03/18/2024 Telephone Vascular Surg [facility] [address] [place] [address] Services, [facility] [address] [place] [address] Advice Allergies Active Allergy Reactions Criticality Noted Date Comments Influenza Vaccines Neuro complications (Please comment) High 01/18/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 documented in this encounter Plan of Treatment Upcoming Encounters Date Type Department Care Team (Late st Contact Info) Description 03/21/2024 9:00 AM EST Office Visit Vascular Surg [address] [address] Keven Maya CRNP [facility] [place] [address] 04/05/2024 1:00 PM EST Appointment Vascular Lab [address] [address] 04/05/2024 1:30 PM EST Appointment Vascular Lab [facility], [address] [address] 04/05/2024 2:20 PM EST Office Visit Vascular Surg [address] [address] Manoj Chan MD [facility] [place] [address] 05/13/2024 7:20 AM EDT Office Visit Family Medicine [address] [place] [phone] Gabriele Dumas MD [address] [place] [address] [place] [address] 05/24/2024 11:00 AM EDT Office Visit Ophthalmology, [address] [place] [address] Lester Livingston DO [address] [place] [address] 05/24/2024 1:00 PM EDT Hospital Encounter ENDO [facility], Endoscopy Room [facility] [address] [place] [phone] Dawn Hilario MD [address] [place] [address] 05/24/2024 1:00 PM EDT - 05/24/2024 1:30 PM EDT Surgery ENDO [facility], Endoscopy Room [facility] [address] [place] [phone] Dawn Hilario MD [address] [place] [address] COLONOSCOPY FLEXIBLE PROXIMAL DIAGNOSTIC 07/15/2024 2:00 PM EDT Office Visit Gastroenterology, [facility] [address] [place] [address] Lynnette Christian CRNP [address] [place] [address] 07/29/2024 7:30 AM EDT Office Visit Pharmacy, [address] [place] [address] [place] [address] Scheduled Procedures Name Priority Associated Diagnoses Date/Ti [...] this encounter Medical Devices Implanted Type Area Lottery Sales Clerk Device Identifier Shelf Expiration Date Model / Serial / Lot Filter Navalign Femoral Tulip - [id number] Implanted:Qty: 1 on 04/21/[address] [facility] [place] Right: Inferior Vena Cava COOK : [employer] 04/12/2013 [id number] / / [id number] [place]ula Acetabular Liner +4 [id number] Id 52mm Od Implanted:Qty: 1 on 04/22/[address] [facility] [place] Right: Hip 03/16/2015 1221-36-152 / / [id number] Stem Cass Por Tpr Stdoff S6 - [id number] Implanted:Qty: 1 on 04/22/[address] [facility] [place] Right: Hip JNJ : [employer] 02/14/2020 [id number] / / [id number] Head Mtl Artic Edwardo 36mm Pl5 - [id number] Implanted:Qty: 1 on 04/22/[address] [facility] [place] Right: Hip JNJ : [employer] 12/14/2014 [id number] / / [id number] Cup Fem Acet [place] 300 52mm - [id number] Implanted:Qty: 1 on 04/22/[address] [facility] [place] Right: Hip JNJ : [employer] [id number] / / [id number] Screw Selftap 3.5x55 204.855 - [id number] Implanted:Qty: 1 on 04/22/[address] [facility] [place] Right: Hip SYNTHES 204.855 / / Screw Canc 4mm 206.065 - [id number] Implanted:Qty: 1 on 04/22/[address] [facility] [place] Right: Hip SYNTHES 206.065 / / Screw Canc Sab[place] 6.5x50mm - [id number] Implanted:Qty: 1 on 04/22/[address] [facility] [place] Right: Hip JNJ : [employer] [id number] / / [id number] Screw Canc Sab[place] 6.5x30mm - [id number] Implanted:Qty: 1 on 04/22/[address] [facility] [place] Right: Hip JNJ : [employer] 02/14/2020 [id number] / / [id number] Screw Selftap 3.5x55 204.855 - [id number] Implanted:Qty: 2 on 04/22/[address] [facility] [place] Right: Hip SYNTHES 204.855 / / Screw Canc 4mm 206.065 - [id number] Implanted:Qty: 1 on 04/22/[address] [facility] [place] Right: Hip SYNTHES 206.065 / / Screw Canc Sab[place] 6.5x15mm - [id number] Implanted:Qty: 1 on 04/22/[address] [facility] [place] Right: Hip JNJ : [employer] 02/14/2020 [id number] / / [id number] Lens 20.5 [id number] - [id number] 039 - [id number] Implanted:Qty: 1 on 10/14/2020 by Lester Livingston, DO at OR [facility] Right: Eye DUANE : SURGICAL 2025 [id number] 5 / [id number] 039 / Lens 20.0 [id number] - [id number] 086 - [id number] Implanted:Qty: 1 on 12/09/2020 by Lester Livingston, at OR [facility] Left: Eye DUANE : SURGICAL 07/13/2025 [id number] 0 / [id number] / documented as of this encounter [...] Directives occurred with: Not Discussed Care Teams Supervisor [employer] Relationship Specialty Start Date End Date Gabriele Dumas MD [address] [place] [address] [place] [address] PCP - General Family Medicine 06/04/21 documented as of this encounter
--- OUTSIDE RECORDS SUMMARY | 2024-03-23 11:46 | External Medical Summary ---
Author Name Unknown Address Unknown Organization : Laboratory Report Ordering Provider Test Date Status KAILYN KIMBALL 03/16/2024 21:03:21 Final Observation Date Value Abnormality Reference (Units ) Status Glucose Point of Care 03/16/2024 21:03:21 250 Above high normal 70-120 (mg/dL) Final Performing Location
--- OUTSIDE RECORDS SUMMARY | 2024-03-23 11:46 | External Medical Summary ---
Author Name Unknown Address Unknown Organization : Laboratory Report Ordering Provider Test Date Status KAILYN KIMBALL 03/15/2024 22:12:54 Final Observation Date Value Abnormality Reference (Units ) Status Glucose Point of Care 03/15/2024 22:12:54 286 Above high normal 70-120 (mg/dL) Final Performing Location
--- OUTSIDE RECORDS SUMMARY | 2024-03-23 11:46 | External Medical Summary | Summary of Care ---
Author Name Unknown Organization [facility] Address [address] [place] [address] Phone [phone] Care Team Providers Care Traction Power Engineer Name Role Phone Gabriele Dumas MD Primary Care Provide r Reason for Visit * Reason Onset Date Comments Advice 03/18/2024 Encounter Details Date Type Department Care Team (Late st Contact Info) Description 03/18/2024 Telephone Vascular Surg [facility] [address] [place] [address] Services, [facility] [address] [place] [address] Advice Allergies Active Allergy Reactions Criticality Noted Date Comments Influenza Vaccines Neuro complications (Please comment) High 01/18/2013 Guilen-[place] syndrome documented as of this encounter (statuses [...] goal of less than 8.0% ([facility]) Use it daily 100 Each 4 [...] Problem Noted Date Diagnosed Date Atherosclerosis of [place] artery of extremity Diabetes mellitus with complication [...] 04/28/2021 History of osteomyelitis 04/28/2021 History of Guillain-[place] sy ndrome due to 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 04/28/2021 [...] would be delivered to his home from [employer] and the pt is wondering when he should be expecting that? documented in this encounter Plan of Treatment Upcoming Encounters Date Type Department Care Team (Late st Contact Info) Description 03/21/2024 9:00 AM EST Office Visit Vascular Surg [address] [address] Keven Maya CRNP [facility] [place] [address] 04/05/2024 1:00 PM EST Appointment Vascular Lab [address] [address] 04/05/2024 1:30 PM EST Appointment Vascular Lab [facility], [address] [address] 04/05/2024 2:20 PM EST Office Visit Vascular Surg [address] [address] Manoj Chan MD [facility] [place] [address] 05/13/2024 7:20 AM EDT Office Visit Family Medicine [address] [place] [phone] Gabriele Dumas MD [address] [place] [address] [place] [address] 05/24/2024 11:00 AM EDT Office Visit Ophthalmology, [address] [place] [address] [address] Lester Livingston DO [address] [address] 05/24/2024 1:00 PM EDT Hospital Encounter ENDO [facility], Endoscopy Room [facility] [address] [place] [id number] Dawn Hilario MD [address] [place] [address] 05/24/2024 1:00 PM EDT - 05/24/2024 1:30 PM EDT Surgery ENDO [facility], Endoscopy Room [facility] [address] [place] [phone] Dawn Hilario MD [address] [place] [address] COLONOSCOPY FLEXIBLE PROXIMAL DIAGNOSTIC 07/15/2024 2:00 PM EDT Office Visit Gastroenterology, [facility] [address] [place] [address] Lynnette Christian CRNP [address] [place] [address] 07/29/2024 7:30 AM EDT Office Visit Pharmacy, [address] [place] [address] [place] [address] Scheduled Procedures Name Priority Associated Diagnoses Date/Ti [...] this encounter Medical Devices Implanted Type Area Psychological Examiner Device Identifier Shelf Expiration Date Model / Serial / Lot Filter Navalign Femoral Tulip - [id number] Implanted:Qty: 1 on 04/21/2010 at [place] [facility] Right: Inferior Vena Cava COOK : [employer] 04/12/2013 [id number] / / [id number] [place] Acetabular Liner +4 [id number] Id 52mm Od Implanted:Qty: 1 on 04/22/2010 at [place] [facility] Right: Hip 03/16/2015 [id number] / / [id number] Stem [place] Por Tpr Stdoff S6 - [id number] Implanted:Qty: 1 on 04/22/2010 at [place] [facility] Right: Hip JNJ : [employer] 02/14/2020 [id number] / / [id number] Head Mtl Artic Edwardo 36mm Pl5 - [id number] Implanted:Qty: 1 on 04/22/2010 at [place] [facility] Right: Hip JNJ : [employer] 12/14/2014 [id number] / / [id number] Fem Acet [place] 300 52mm - [id number] Implanted:Qty: 1 on 04/22/2010 at [place] [facility] Right: Hip JNJ : [employer] [id number] / / [id number] Screw Selftap 3.5x55 204.855 - [id number] Implanted:Qty: 1 on 04/22/2010 at [place] [facility] Right: Hip SYNTHES 204.855 / / Screw Canc 4mm 206.065 - [id number] Implanted:Qty: 1 on 04/22/2010 at [place] [facility] Right: Hip SYNTHES 206.065 / / Screw Canc [place] 6.5x50mm - [id number] Implanted:Qty: 1 on 04/22/2010 at [place] [facility] Right: Hip JNJ : [employer] [id number] / / [id number] Screw Canc [place] 6.5x30mm - [id number] Implanted:Qty: 1 on 04/22/2010 at [place] [facility] Right: Hip JNJ : [employer] 02/14/2020 [id number] / / [id number] Screw Selftap 3.5x55 204.855 - [id number] Implanted:Qty: 2 on 04/22/2010 at [place] [facility] Right: Hip SYNTHES 204.855 / / Screw Canc 4mm 206.065 - [id number] Implanted:Qty: 1 on 04/22/2010 at [place] [facility] Right: Hip SYNTHES 206.065 / / Screw Canc [place] 6.5x15mm - [id number] Implanted:Qty: 1 on 04/22/2010 at [place] [facility] Right: Hip JNJ : [employer] 02/14/2020 [id number] / / [id number] Lens 20.5 [id number] - [id number] - [id number] Implanted:Qty: 1 on 10/14/2020 by Lester Livingston, DO at OR [facility] Right: Eye DUANE : SURGICAL 2025 [id number] / [id number] / Lens 20.0 [id number] - [id number] - [id number] Implanted:Qty: 1 on 12/09/2020 by Lester Livingston, at OR [facility] Left: Eye DUANE : SURGICAL 07/13/2025 [id number] / [id number] / documented as of this encounter [...] Directives occurred with: Not Discussed Care Teams Traction Power Engineer Relationship Specialty Start Date End Date Gabriele Dumas MD [address] [place] [address] [place] [address] PCP - General Family Medicine 06/04/21 documented as of this encounter
--- OUTSIDE RECORDS SUMMARY | 2024-03-23 11:46 | External Medical Summary ---
Author Name Unknown Address Unknown Organization : Laboratory Report Ordering Provider Test Date Status KAILYN KIMBALL 03/16/2024 10:51:42 Final Observation Date Value Abnormality Reference (Units ) Status Glucose Point of Care 03/16/2024 10:51:42 262 Above high normal 70-120 (mg/dL) Final Performing Location
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
--- OUTSIDE RECORDS SUMMARY | 2024-03-23 11:47 | External Medical Summary ---
Author Name Unknown Address Unknown Organization K01:[facility] [place] [address] [address] [facility] [place]. [place] [id number] Laboratory Report Ordering Provider Test Date Status KAILYN KIMBALL 03/15/2024 15:23:00 Final Gram stain not routinely per formed on this specimen source. Observation Date Value Abnormality Reference (Units ) Status Bacteria identified in Specimen by Culture 03/15/2024 15:23:00 No aerobic or anaerobic growth Final Test: Culture, Tissue, Aerob ic and Anaerobic
Specimen Source: Foot, Right
Specimen Type: Bone
Specimen Date: 03/15/2024 1523
Result Date: 03/22/2024 1320
Result Status: Final result
Resulting Lab: [facility]
[address] [facility] [place]
[facility] [address]

CULTURE

No aerobic or anaerobic growth

Gram stain not routinely performed on this specimen source.

null Performing Location [facility] [place] [address] [address] [facility] [place] [facility] [address]
--- OUTSIDE RECORDS SUMMARY | 2024-03-23 11:47 | External Medical Summary | Summary of Care ---
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 (statuses as of 03/01/2024) Medications Atorvastatin Calcium 40 MG Oral Tablet [...] as of this encounter (statuses as of 03/01/2024) Active Problems Problem Noted Date Diagnosed Date Atherosclerosis of torres martinez artery of extremity Diabetes mellitus with complication [...] 04/28/2021 History of osteomyelitis 04/28/2021 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 Never true 10/25/20 24 Within the past 12 months, t [...] PM EDT documented as of this encounter Miscellaneous Notes * Telephone Encounter - Jarrett Trejo, PRAVEEN - 03/01/2024 1:56 PM EST Was able to reach patient at his home and confirmed new surgery date with on 03/15 Case moved/calendars updated * Telephone Encounter - Jarrett Trejo OSA - 02/29/2024 4:05 PM EST Called and left patient a message to reschedule surgery with Dr. Chan which is currently scheduledfor 03/08. Looking to reschedule surgery to 03/15 Will try reaching patient again. documented in this encounter Plan of Treatment Upcoming Encounters Date Type Department Care Team (Latest Contact Info) Description 03/08/2024 7:15 AM EST Hospital Encounter [place] [facility] [place], OPERATING ROOM [facility] [place], [place] [address] [place] [phone] Manoj Chan MD [address] [place], [place] [phone] 03/08/2024 7:15 AM EST - 03/08/2024 10:05 AM EST Surgery OR [facility] [place], OPERATING ROOM [facility] [place] [address] [place] [phone] Manoj Chan MD [address] [place] [address] AMPUTATION FOOT TRANSMETATARSAL 03/21/2024 9:00 AM EST Office Visit Vascular Surg [facility] [place] [address] [place] [address] Keven Maya CRNP [address] [place], [place] [phone] 04/05/2024 1:00 PM EST Appointment Vascular Lab [address] [address] 04/05/2024 1:30 PM EST Appointment Vascular [facility] [place] [address] [place], [place] [phone] 04/05/2024 2:20 PM EST Office Visit Vascular Surg [facility] [address] [facility] [address] Manoj Chan MD [address] [facility] [place], [place] [address] 05/13/2024 7:20 AM EDT Office Visit [address] [place] [phone] Gabriele Dumas MD [address] [place] [address] [place] [address] 05/24/2024 11:00 AM EDT Office Visit OphthalmologyAri [address] [facility] [place] [address] Lester Livingston DO [address] [place] [address] 05/24/2024 1:00 PM EDT Hospital Encounter [facility], Endoscopy Room [facility] [address] [place] [phone] Dawn Hilario MD [address] [place] [address] 05/24/2024 1:00 PM EDT - 05/24/2024 1:30 PM EDT Surgery ENDO [facility], Endoscopy Room [facility] [address] [place] [phone] Dawn Hilario MD [address] [place] [address] COLONOSCOPY FLEXIBLE PROXIMAL DIAGNOSTIC 07/15/2024 2:00 PM EDT Office Visit Gastroenterology, [facility] [address] [place] [address] Lynnette Christian CRNP [address] [place] [address] 07/29/2024 7:30 AM EDT Office Visit Pharmacy, [address] [place] [address] [place] [address] Scheduled Procedures Name Priority Associated Diagnoses Date/Ti me 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) Diabetes mellitus with complication (HCC) Small vessel disease (HCC) Dyslipidemia, goal LDL below 100 Diabetic ulcer of 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, with necrosis of bone (HCC) 03/08/2024 7:15 AM EST IMAGING SUPERVISION & INTERPRETATION EXTREMITY UNILATERAL 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 (HCC) Diabetes mellitus with complication (HCC) Small vessel disease (HCC) Dyslipidemia, goal LDL below 100 Diabetic ulcer of 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, with necrosis of bone (HCC) 03/08/2024 7:15 AM EST COLONOSCOPY FLEXIBLE PROXIMA L DIAGNOSTIC Diarrhea, unspecified type 05/24/2024 1:00 PM EDT Health Maintenance Due Date Last Done Comments DTap/Tdap Vaccines (1 - Tdap) 1968 Pneumococcal Vaccine: 50+ Years (1 of 2 - PCV) 1968 Colonoscopy 1994 Fecal Occult Blood Test 1994 Sigmoidoscopy 1994 Adult Wellness Visit 06/16/2015 COVID-19 Vaccine (1 - season) 2023 Diabetic Foot Exam 02/28/2024 [...] this encounter Medical Devices Implanted Type Area Strap Cutter Device Identifier Shelf Expiration Date Model / Serial / Lot Filter Navalign Femoral Tulip - [id number] Implanted:Qty: 1 on 04/21/2010 at OR [facility] [place] Right: Inferior Vena Cava COOK : [employer] 04/12/2013 [id number] / / [id number] [employer] Acetabular Liner +4 [id number] 52mm Od Implanted:Qty: 1 on 04/22/2010 at OR [facility] [place] Right: Hip 03/16/2015 [id number] / / [id number] Stem [place] Por Tpr Stdoff S6 - [id number] Implanted:Qty: 1 on 04/22/2010 at OR [facility] [place] Right: Hip JNJ : [employer] 02/14/2020 [id number] / / [id number] Head Mtl Artic Edwardo 36mm Pl5 - [id number] Implanted:Qty: 1 on 04/22/2010 at OR [facility] [place] Right: Hip JNJ : [employer] 12/14/2014 [id number] / / [id number] Fem Acet [employer] 300 52mm - [id number] Implanted:Qty: 1 on 04/22/2010 at OR [facility] [place] Right: Hip JNJ : [employer] [id number] / / [id number] Screw Selftap 3.5x55 204.855 - [id number] Implanted:Qty: 1 on 04/22/2010 at OR [facility] [place] Right: Hip SYNTHES 204.855 / / Screw Canc 4mm 206.065 - [id number] Implanted:Qty: 1 on 04/22/2010 at OR [facility] [place] Right: Hip SYNTHES 206.065 / / Screw Canc [employer] 6.5x50mm - [id number] Implanted:Qty: 1 on 04/22/2010 at OR [facility] [place] Right: Hip JNJ : [employer] [id number] / / [id number] Screw Canc [employer] 6.5x30mm - [id number] Implanted:Qty: 1 on 04/22/2010 at OR [facility] [place] Right: Hip JNJ : [employer] 02/14/2020 [id number] / / [id number] Screw Selftap 3.5x55 204.855 - [id number] Implanted:Qty: 2 on 04/22/2010 at OR [facility] [place] Right: Hip SYNTHES 204.855 / / Screw Canc 4mm 206.065 - [id number] Implanted:Qty: 1 on 04/22/2010 at OR [facility] [place] Right: Hip SYNTHES 206.065 / / Screw Canc [employer] 6.5x15mm - [id number] Implanted:Qty: 1 on 04/22/2010 at OR [facility] [place] Right: Hip JNJ : [employer] 02/14/2020 [id number] / / [id number] Lens 20.5 [id number] - [id number] - [id number] Implanted:Qty: 1 on 10/14/2020 by Lester Livingston DO at OR [facility] Right: Eye DUANE : SURGICAL 2025 [id number] / [id number] / Lens 20.0 [id number] - [id number] 086 - [id number] Implanted:Qty: 1 on 12/09/2020 by Lester Livingston DO at OR [facility] Left: Eye DUANE : SURGICAL 07/13/2025 [id number] 0 / [id number] / documented as of this encounter Advance Directives * Full Code (Latest Code Status on File) Date Activated Date Inactivated Comments 04/22/2010 6:35 PM 04/27/2010 9:02 PM Question Answer Comments Discussion of Advance Directives occurred with: Not Discussed Care Teams General Adjuster Relationship Specialty Start Date End Date Gabriele Dumas MD [address] [place] [address] [place] [phone] PCP - General Family Medicine 06/04/21 documented as of this encounter
--- OUTSIDE RECORDS SUMMARY | 2024-03-23 11:47 | External Medical Summary | Summary of Care ---
Author Name Unknown Organization [facility] Address [address] [place] [address] Phone [phone] Care Team Providers Care Canvas Goods Fabricator Name Role Phone Gabriele Dumas MD Primary Care Provide r Reason for Visit * Reason Comments Outpatient Testing Encounter Details Date Type Department Care Team (Latest Contact Info) Description 02/26/2024 10:50 AM EST Laboratory Outpatient Laboratory, [place] [address] [place] [address] [place], Lab B1a [address] [place] [address] Atherosclerosis of havasupai artery of right lower extremity with ulceration of other part of foot (HCC); Diabetes mellitus with complication (HCC); Small vessel disease (HCC); Dyslipidemia, goal LDL below 100; Diabetic ulcer of 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, with necrosis of bone (HCC) Allergies Active Allergy Reactions Criticality Noted Date Comments Influenza Vaccines 01/18/2013 Guilen-Columbus syndrome documented as of this encounter (statuses [...] Problem Noted Date Diagnosed Date Atherosclerosis of havasupai artery of extremity Diabetes mellitus with complication [...] 04/28/2021 History of osteomyelitis 04/28/2021 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 04/28/2021 [...] PM EDT documented as of this encounter Plan of Treatment Upcoming Encounters Date Type Department Care Team (Late st Contact Info) Description 02/28/2024 8:10 AM EST Office Visit Pharmacy, [address] [place] [address] [place] [address] 03/08/2024 Hospital Encounter [facility], [place]PER[place] [facility] [place] [address] [place] [phone] Manoj Chan MD [address] [place] [address] 03/21/2024 9:00 AM EST Office Visit Vascular Surg [place] [address] [place] [address] Keven Maya CRNP [address] [place] [address] 04/05/2024 1:00 PM EST Appointment Vascular Lab [place] [address] [place] [address] 04/05/2024 1:30 PM EST Appointment Vascular Lab [address] [address] 04/05/2024 2:20 PM EST Office Visit Vascular [address] [address] Manoj Chan MD [address] [place] [address] 05/13/2024 7:20 AM EDT Office Visit Family Medicine [address] [place] [phone] Gabriele Dumas MD [address] [place] [address] [place] [address] 05/24/2024 11:00 AM EDT Office Visit Ophthalmology, [address] [place] [address] Lester Livingston, DO [address] [place] [address] 05/24/2024 1:00 PM EDT Hospital Encounter ENDO [facility], Endoscopy Room [facility] [address] [place] [phone] Dawn Hilario MD [address] [place] [address] 05/24/2024 1:00 PM EDT - 05/24/2024 1:30 PM EDT Surgery ENDO [facility], Endoscopy Room [facility] [address] [place] [phone] Dawn Hilario MD [address] [place] [address] COLONOSCOPY FLEXIBLE PROXIMAL DIAGNOSTIC 07/15/2024 2:00 PM EDT Office Visit Gastroenterology, [facility] [address] [facility] [place] [address] Lynnette Christian CRNP [address] [place], [place] [address] Scheduled Procedures Name Priority Associated Diagnoses Date/Ti me AMPUTATION FOOT TRANSMETATARSAL Atherosclerosis of havasupai artery of right lower extremity with ulceration of other part of foot (HCC) Diabetes mellitus with complication (HCC) Small vessel disease (HCC) Dyslipidemia, goal LDL below 100 Diabetic ulcer of 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, with necrosis of bone (HCC) IMAGING SUPERVISION & INTERPRETATION EXTREMITY UNILATERAL Atherosclerosis of havasupai artery of right lower extremity with ulceration of other part of foot (HCC) Diabetes mellitus with complication (HCC) Small vessel disease (HCC) Dyslipidemia, goal LDL below 100 Diabetic ulcer of 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 REVASC W/STENT+ANGIO, FIRST Atherosclerosis of havasupai artery of right lower extremity with ulceration [...] Wellness Visit 06/16/2015 COVID-19 Vaccine ( - 2023- season) 2023 Diabetic Foot Exam 02/28/2024 02/27/2023, [...] Cancer Screening 06/16/2025 Lipid Panel 03/17/2028 03/17/2023, 020 02/2022, 03/01/2021, Additional history exists HPV (Gardasil) [...] this encounter Medical Devices Implanted Type Area Visual Aid Expert Device Identifier Shelf Expiration Date Model / Serial / Lot Filter Navalign Femoral Tulip - [id number] [place]ed:Q[place] 1 [place] [facility] [place] Inferior Vena Cava COOK : [employer] 04/12/2013 [id number] / / [id number] [place] Acetabular Liner +4 [id number] 52mm Od Implanted:Qty: 1 on 04/22/2010 [place] [facility] [place]: Hip 03/16/2015 1221-36-152 / / [id number] Stem [place] Por Tpr Stdoff S6 - [id number] Implanted:Qty: 1 [place] 04/22/[place] [facility] [place]: Hip JNJ : [employer] 02/14/2020 [id number] / / [id number] Head Mtl Artic Edwardo 36mm Pl5 - [id number] Implanted:Qty: 1 on 04/22/2010 at [facility] Right: Hip JNJ : [facility] 12/14/2014 [id number] / / [id number] Fem Acet [place] 300 52mm - [id number] Implanted:Qty: 1 on 04/22/2010 [place] [facility] [place]: Hip JNJ : [employer] [id number] / / [id number] Screw Selftap 3.5x55 204.855 - [id number] Implanted:Qty: 1 on 04/22/2010 [place] [facility] [place]: Hip SYNTHES 204.855 / / Screw Canc 4mm 206.065 - [id number] Implanted:Qty: 1 on 04/22/2010 [place] [facility] [place]: Hip SYNTHES 206.065 / / Screw Canc [place] 6.5x50mm - [id number] Implanted:Qty: 1 on 04/22/2010 [place] [facility] [place]: Hip JNJ : [employer] [id number] / / [id number] Screw Canc [place] 6.5x30mm - [id number] Implanted:Qty: 1 on 04/22/2010 at [facility] Right: Hip JNJ : [employer] 02/14/2020 [id number] / / [id number] Screw Selftap 3.5x55 204.855 - [id number] Implanted:Qty: 2 on 04/22/2010 [place] [facility] [place]: Hip SYNTHES 204.855 / / Screw Canc 4mm 206.065 - [id number] Implanted:Qty: 1 on 04/22/2010 [place] [facility] [place]: Hip SYNTHES 206.065 / / Screw Canc [place] 6.5x15mm - [id number] Implanted:Qty: 1 on 04/22/2010 [place] [facility] [place]: Hip JNJ : [employer] 02/14/2020 [id number] / / [id number] Lens 20.5 [id number] - [id number] - [id number] Implanted:Qty: 1 on 10/14/2020 by Lester Livingston DO at OR [facility] Right: Eye DUANE : SURGICAL 2025 [id number] / [id number] / Lens 20.0 [id number] - [id number] - [id number] Implanted:Qty: 1 on 12/09/2020 by Lester Livingston DO at OR [facility] Left: Eye DUANE : SURGICAL 07/13/2025 [id number] / [id number] / documented as of this encounter Visit Diagnoses Diagnosis Diabetic ulcer of 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, with necrosis of bone (HCC)- Primary Diabetic ulcer of 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, with necrosis of bone (HCC) Small vessel disease (HCC) Peripheral vascular disease, unspecified PAD (peripheral artery disease) (HCC) Peripheral vascular disease, unspecified Atherosclerosis of havasupai artery of extremity (HCC) Atherosclerosis of havasupai arteries of the extremities, unspecified Diabetes mellitus with complication (HCC) Type II or unspecified type diabetes mellitus with unspecified complication, not stated as uncontrolled Small vessel disease (HCC) Peripheral vascular disease, unspecified Dyslipidemia, goal LDL below 100 Other and unspecified hyperlipidemia Atherosclerosis of havasupai artery of right lower extremity with ulceration [...] Directives occurred with: Not Discussed Care Teams Canvas Goods Fabricator Relationship Specialty Start Date End Date Gabriele Dumas MD [address] [place] [address] [place] [phone] PCP - General Family Medicine 06/04/21 documented as of this encounter
--- OUTSIDE RECORDS SUMMARY | 2024-03-23 11:47 | External Medical Summary | Summary of Care ---
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 (statuses as of 02/27/2024) Medications Atorvastatin Calcium 40 MG Oral Tablet [...] Tablet Delayed ReleaseIndication s:PAD (peripheral artery disease) ([facility]) Take 1 Tablet by mouth in the [...] as of this encounter (statuses as of 02/27/2024) Active Problems Problem Noted Date Diagnosed Date Atherosclerosis of [place] artery of extremity Diabetes mellitus with complication [...] 04/28/2021 History of osteomyelitis 04/28/2021 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 (Household - [...] Department Care Team (Latest Contact Info) Description 02/28/2024 8:10 AM EST Office Visit Pharmacy, [address] [place] [address] [place] [address] 03/08/2024 1:21 PM EST Hospital Encounter [place] [place] [address] [place] [phone] Manoj Chan MD [address] [place] [address] 03/08/2024 1:21 PM EST - 03/08/2024 4:11 PM EST Surgery [facility] [address] [place] [phone] Manoj Chan MD [address] [place], [place] [phone] AMPUTATION FOOT TRANSMETATARSAL 03/21/2024 9:00 AM EST Office Visit Vascular [place] [address] [place] [address] Keven Maya CRNP [address] [place] [address] 04/05/2024 1:00 PM EST Appointment Vascular Lab [address] [address] 04/05/2024 1:30 PM EST Appointment Vascular Lab [address] [address] 04/05/2024 2:20 PM EST Office Visit Vascular [place] [address] [place] [address] Manoj Chan MD [address] [place] [address] 05/13/2024 7:20 AM EDT Office Visit Family Medicine [address] [place] [phone] Gabriele Dumas MD [address] [place] [address] [place] [address] 05/24/2024 11:00 AM EDT Office Visit Ophthalmology, [address] [place] [address] Lester Livingston DO [address] [place] [address] 05/24/2024 1:00 PM EDT Hospital Encounter [facility], Endoscopy Room [facility] [address] [place] [phone] Dawn Hilario MD [address] [address] 05/24/2024 1:00 PM EDT - 05/24/2024 1:30 PM EDT Surgery ENDO [facility], Endoscopy Room [facility] [address] [place] [phone] Dawn Hilario MD [address] [place] [address] COLONOSCOPY FLEXIBLE PROXIMAL DIAGNOSTIC 07/15/2024 2:00 PM EDT Office Visit Gastroenterology, [facility] [address] [place] [address] Lynnette Christian CRNP 132 [facility] [place] [address] Scheduled Procedures Name Priority Associated Diagnoses Date/Ti me AMPUTATION FOOT TRANSMETATARSAL 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 (HCC) Diabetes mellitus with complication (HCC) Small vessel disease (HCC) Dyslipidemia, goal LDL below 100 Diabetic ulcer of 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, with necrosis of bone (HCC) 03/08/2024 1:21 PM EST IMAGING SUPERVISION & INTERPRETATION EXTREMITY UNILATERAL 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 REVASC W/STENT+ANGIO, FIRST 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 (HCC) Diabetes mellitus with complication (HCC) Small vessel disease (HCC) Dyslipidemia, goal LDL below 100 Diabetic ulcer of 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, with necrosis of bone (HCC) 03/08/2024 1:21 PM EST COLONOSCOPY FLEXIBLE PROXIMA L DIAGNOSTIC Diarrhea, [...] this encounter Medical Devices Implanted Type Area Head Of Commission Department Device Identifier Shelf Expiration Date Model / Serial / Lot Filter Navalign Femoral Tulip - [id number] Implanted:Qty: 1 on 04/21/2010 at [facility] [place] Right: Inferior Vena Cava COOK : [employer] 04/12/2013 [id number] / / [id number] [place] Acetabular Liner +4 [id number] 52mm Od Implanted:Qty: 1 on 04/22/2010 at [place] [facility] Right: Hip 03/16/2015 [id number] / / [id number] Stem [place] Por Tpr Stdoff S6 - [id number] Implanted:Qty: 1 on 04/22/2010 at [place] [facility] Right: Hip JNJ : [employer] 02/14/2020 [id number] / / [id number] Head Mtl Artic Edwardo 36mm Pl5 - [id number] Implanted:Qty: 1 on 04/22/2010 at [place] [facility] Right: Hip JNJ : [employer] 12/14/2014 [id number] / / [id number] Fem Acet [place] 300 52mm - [id number] Implanted:Qty: 1 on 04/22/2010 at [place] [facility] Right: Hip JNJ : [employer] [id number] / / [id number] Screw Selftap 3.5x55 204.855 - [id number] Implanted:Qty: 1 on 04/22/2010 at [place] [facility] Right: Hip SYNTHES 204.855 / / Screw Canc 4mm 206.065 - [id number] Implanted:Qty: 1 on 04/22/2010 at [place] [facility] Right: Hip SYNTHES 206.065 / / Screw Canc [place] 6.5x50mm - [id number] Implanted:Qty: 1 on 04/22/2010 at [place] [facility] Right: Hip JNJ : [employer] [id number] / / [id number] Screw Canc [place] 6.5x30mm - [id number] Implanted:Qty: 1 on 04/22/2010 at [facility] Right: Hip JNJ : [employer] 02/14/2020 [id number] / / [id number] Screw Selftap 3.5x55 204.855 - [id number] Implanted:Qty: 2 on 04/22/2010 at [place] [facility] Right: Hip SYNTHES 204.855 / / Screw Canc 4mm 206.065 - [id number] Implanted:Qty: 1 on 04/22/2010 at [place] [facility] Right: Hip SYNTHES 206.065 / / Screw Canc [place] 6.5x15mm - [id number] Implanted:Qty: 1 on 04/22/2010 at [place] [facility] Right: Hip JNJ : [employer] 02/14/2020 [id number] / / [id number] Lens 20.5 [id number] - [id number] - [id number] Implanted:Qty: 1 on 10/14/2020 by Lester Livingston DO at OR [facility] Right: Eye DUANE : SURGICAL 2025 [id number] / [id number] / Lens 20.0 [id number] - [id number] 086 - [id number] Implanted:Qty: 1 on 12/09/2020 by Lester Livingston DO at OR [facility] Left: Eye DUANE : SURGICAL 07/13/2025 [id number] / [id number] / documented as of this encounter Procedures Procedure Name Priority Date/Time Associated Diagnosis Comments XR FOOT 3 OR MORE VIEWS Routine 02/26/2024 7:39 AM EST 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 Few tiny erosions along the lateral aspect of the middle phalangeal head and distal phalangeal base, age indeterminate but age indeterminate osteomyelitis could be possible and recommend assessment with MRI if no contraindication. Somewhat of a truncated and eroded appearance at the right 2nd digit distal phalangeal terminal tuft, also age indeterminate and any underlying osteomyelitis not excluded. Ulcer/wound seen along the medial aspect of the 1st metatarsal head without clear underlying osseous destruction seen radiographically. Mild hallux valgus. Amputation of the 3rd toe to the level of the metatarsal head and amputation of the 5th ray to the level of the metatarsal midshaft. Narrative 02/26/2024 4:58 PM EST EXAM XR FOOT 3 OR MORE VIEWS-02/26/2024 7:39 am HISTORY right medial 1st MTH ulcer and right 4th toe tip ulcer. evaluate for osteomyelitis TECHNIQUE Three views of right foot COMPARISON 12/28/2023 FINDINGS There is amputation of the 3rd toe to the level of the metatarsal head and amputation of the 5th ray to the level of the metatarsal midshaft. There is soft tissue swelling about the 4th toe with some slight soft tissue irregularity and overlying bandaging. Few tiny erosions along the lateral aspect of the middle phalangeal head and distal phalangeal base, age indeterminate but early foci of osteomyelitis not excluded and recommend assessment with MRI if no contraindication. There is somewhat of a truncated and eroded appearance at the right 2nd digit distal phalangeal terminal tuft, also age indeterminate and any underlying osteomyelitis not excluded. Ulcer/wound seen along the medial aspect of the 1st metatarsal head without clear underlying osseous destruction seen radiographically. Mild hallux valgus. Mild midfoot arthrosis. Tiny plantar calcaneal heel spur. Soft tissue swelling about the residual forefoot. Procedure Note Henrry Maciel MD - 02/26/2024 EXAM XR FOOT 3 OR MORE VIEWS-02/26/2024 7:39 am HISTORY right medial 1st MTH ulcer and right 4th toe tip ulcer. evaluate forosteomyelitis TECHNIQUE Three views of right foot COMPARISON 12/28/2023 FINDINGS There is amputation of the 3rd toe to the level of the metatarsal head andamputation of the 5th ray to the level of the metatarsal midshaft. There is soft tissue swelling about the 4th toe with some slight softtissue irregularity and overlying bandaging. Few tiny erosions along thelateral aspect of the middle phalangeal head and distal phalangeal base,age indeterminate but early foci of osteomyelitis not excluded andrecommend assessment with MRI if no contraindication. There is somewhat of a truncated and eroded appearance at the right 2nddigit distal phalangeal terminal tuft, also age indeterminate and anyunderlying osteomyelitis not excluded. Ulcer/wound seen along the medial aspect of the 1st metatarsal headwithout clear underlying osseous destruction seen radiographically. Mildhallux valgus. Mild midfoot arthrosis. Tiny plantar calcaneal heel spur. Soft tissue swelling about the residual forefoot. IMPRESSION IMPRESSION Soft tissue swelling about the 4th toe with some slight soft tissueirregularity and overlying bandaging. Few tiny erosions along the lateralaspect of the middle phalangeal head and distal phalangeal base, ageindeterminate but age indeterminate osteomyelitis could be possible andrecommend assessment with MRI if no contraindication. Somewhat of a truncated and eroded appearance at the right 2nd digitdistal phalangeal terminal tuft, also age indeterminate and any underlyingosteomyelitis not excluded. Ulcer/wound seen along the medial aspect of the 1st metatarsal headwithout clear underlying osseous destruction seen radiographically. Mildhallux valgus. Amputation of the 3rd toe to the level of the metatarsal head andamputation of the 5th ray to the level of the metatarsal midshaft. [facility] (RAD GENER AL) Final Result documented in this encounter Advance Directives * Full Code (Latest Code Status on File) Date Activated Date Inactivated Comments 04/22/2010 6:35 PM 04/27/2010 9:02 PM Question Answer Comments Discussion of Advance Directives occurred with: Not Discussed Care Teams Inventory Assistant Relationship Specialty Start Date End Date Gabriele Dumas MD [address] [place] [address] [place] [address] PCP - General Family Medicine 06/04/21 documented as of this encounter
--- OUTSIDE RECORDS SUMMARY | 2024-03-23 11:47 | External Medical Summary ---
Author Name Unknown Address Unknown Organization K01:LABORATORY [facility] - [address] [place] [address] Laboratory Report Ordering Provider Test Date Status NIKIA AREVALO 02/26/2024 10:15:57 Final Observation Date Value Abnormality Reference (Units ) Status BUN 02/26/2024 10:15:57 12 6-20 (mg/dL) Final Creatinine 02/26/2024 10:15:57 0.6 0.6-1.2 (mg/dL) Final Glomerular filtration rate/1.73 sq M.predicted [Volume Rate/Area] in Serum, Plasma or Blood by Creatinine-based formula (CKD-EPI) 02/26/2024 10:15:57 >90 >=60 (mL/min) Final eGFR is calculated based on the CKD-EPI 2020 equation. Sodium 02/26/2024 10:15:57 139 135-146 (m mol/L) Final Potassium 02/26/2024 10:15:57 4.3 3.5-5.1 (m mol/L) Final Cl 02/26/2024 10:15:57 102 98-107 (mm ol/L) Final CO2 02/26/2024 10:15:57 25 22-32 (mmo l/L) Final Anion gap 02/26/2024 10:15:57 12 7-15 (mmol /L) Final Glucose 02/26/2024 10:15:57 132 Above high normal 70 -120 (mg/dL) Final Calcium 02/26/2024 10:15:57 9.3 8.4-10.2 ( mg/dL) Final Performing Location LABORATORY [facility] - [address] [place] [address]
--- OUTSIDE RECORDS SUMMARY | 2024-03-23 11:47 | External Medical Summary | Summary of Care ---
Author Name Unknown Organization [facility] Address [address] [place] [address] Phone [phone] Care Team Providers Care Molded Goods Embossing Press Operator Name Role Phone Gabriele Dumas MD Primary Care Provide r Reason for Visit * Reason Onset Date Comments Surgery 02/29/2024 Encounter Details Date Type Department Care Team (Late st Contact Info) Description 02/29/2024 Telephone Vascular Surg [facility] [address], [place] [phone] Manoj Chan MD [address], [place] [phone] Surgery Allergies Active Allergy Reactions Criticality Noted Date Comments Influenza Vaccines 01/18/2013 Guilen-Hardin syndrome documented as of this encounter (statuses as of 02/29/2024) Medications Atorvastatin Calcium 40 MG Oral Tablet [...] as of this encounter (statuses as of 02/29/2024) Active Problems Problem Noted Date Diagnosed Date Atherosclerosis of in[place]iat artery of extremity Diabetes mellitus with complication [...] 04/28/2021 History of osteomyelitis 04/28/2021 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 Chan which is currently scheduledfor 03/08. Looking to reschedule surgery to 03/15 Will try reaching patient again. documented in this encounter Plan of Treatment Upcoming Encounters Date Type Department Care Team (Latest Contact Info) Description 03/08/2024 1:21 PM EST Hospital Encounter [place] [facility] [place] [address] [place] [address] Manoj Chan MD [facility] [address] 03/08/2024 1:21 PM EST - 03/08/2024 4:11 PM EST Surgery [place] [facility]OM [facility] [place] [address] [place] [address] Manoj Chan MD [facility] [address] [place], [place] [phone] AMPUTATION FOOT TRANSMETATARSAL 03/21/2024 9:00 AM EST Office Visit Vascular Surg [facility], [address] [phone] Keven Maya CRNP [address] [place], [place] [phone] 04/05/2024 1:00 PM EST Appointment Vascular Lab [facility], [address] [phone] 04/05/2024 1:30 PM EST Appointment Vascular Lab [facility], [address] [phone] 04/05/2024 2:20 PM EST Office Visit Vascular Surg [facility], [address] [phone] Manoj Chan MD [facility] [address] [place], [place] [phone] 05/13/2024 7:20 AM EDT Office Visit Family Medicine [address] [place] [phone] Gabriele Dumas MD [address] [place] [address] [place] [address] 05/24/2024 11:00 AM EDT Office Visit Ophthalmology, [address] [place] [address] Lester Livingston DO [address] [place] [address] 05/24/2024 1:00 PM EDT Hospital Encounter ENDO [facility], Endoscopy Room [facility] [address] [place] [phone] Dawn Hilario MD [address] [place] [address] 05/24/2024 1:00 PM EDT - 05/24/2024 1:30 PM EDT Surgery ENDO [facility], Endoscopy Room [facility] [address] [place] [phone] Dawn Hilario MD [address] [place] [address] COLONOSCOPY FLEXIBLE PROXIMAL DIAGNOSTIC 07/15/2024 2:00 PM EDT Office Visit [facility] [place] [address] Lynnette Christian CRNP [address] [place] [address] 07/29/2024 7:30 AM EDT Office Visit Pharmacy, [address] [place] [address] [place] [address] Scheduled Procedures Name Priority Associated Diagnoses Date/Ti me AMPUTATION FOOT TRANSMETATARSAL Atherosclerosis of inupiat artery of right lower extremity with ulceration of other part of foot (HCC) Diabetes mellitus with complication (HCC) Small vessel disease (HCC) Dyslipidemia, goal LDL below 100 Diabetic ulcer of 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, with necrosis of bone (HCC) 03/08/2024 1:21 PM EST IMAGING SUPERVISION & INTERPRETATION EXTREMITY UNILATERAL Atherosclerosis of inupiat artery of right lower extremity with ulceration of other part of foot (HCC) Diabetes mellitus with complication (HCC) Small vessel disease (HCC) Dyslipidemia, goal LDL below 100 Diabetic ulcer of 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, with necrosis of bone (HCC) 03/08/2024 1:21 PM EST TIB/PERON ART. REVASC W/STENT+ANGIO, FIRST Atherosclerosis of inupiat artery of right lower extremity with ulceration [...] , 09/21/2023, Additional history exists Albumin/Creatinine Ratio 10/24/20242 024, 03/16/2022, 04/28/2021, Additional history exists Depression [...] this encounter Medical Devices Implanted Type Area Bridge Crane Operator Device Identifier Shelf Expiration Date Model / Serial / Lot Filter Navalign Femoral Tulip - [id number] Implanted:Qty: 1 on 04/21/2010 at [place] [facility] Right: Inferior Vena Cava COOK : [employer] 04/12/2013 [id number] / / [id number] [place] Acetabular Liner +4 [id number] 52mm Od Implanted:Qty: 1 on 04/22/2010 at [place] [facility] Right: Hip 03/16/2015 1221-36-152 / / [id number] Stem [place] Por Tpr Stdoff S6 - [id number] Implanted:Qty: 1 on 04/22/2010 at [facility] Right: Hip JNJ : [employer] 02/14/2020 [id number] / / [id number] Head Mtl Artic Edwardo 36mm Pl5 - [id number] Implanted:Qty: 1 on 04/22/2010 at [place] [facility] Right: Hip JNJ : [employer] 12/14/2014 [id number] / / [id number] Fem Acet [place] 300 52mm - [id number] Implanted:Qty: 1 on 04/22/2010 at [facility] Right: Hip JNJ : [employer] [id number] / / [id number] Screw Selftap 3.5x55 204.855 - [id number] Implanted:Qty: 1 on 04/22/2010 at [facility] Right: Hip SYNTHES 204.855 / / Screw Canc 4mm 206.065 - [id number] Implanted:Qty: 1 on 04/22/2010 at [place] [facility] Right: Hip SYNTHES 206.065 / / Screw Canc [place] 6.5x50mm - [id number] Implanted:Qty: 1 on 04/22/2010 at [place] [facility] Right: Hip JNJ : [employer] [id number] / / [id number] Screw Canc [place] 6.5x30mm - [id number] Implanted:Qty: 1 on 04/22/2010 at [place] [facility] Right: Hip JNJ : [employer] 02/14/2020 [id number] / / [id number] Screw Selftap 3.5x55 204.855 - [id number] Implanted:Qty: 2 on 04/22/2010 at [place] [facility] Right: Hip SYNTHES 204.855 / / Screw Canc 4mm 206.065 - [id number] Implanted:Qty: 1 on 04/22/2010 at [place] [facility] Right: Hip SYNTHES 206.065 / / Screw Canc [place] 6.5x15mm - [id number] Implanted:Qty: 1 on 04/22/2010 at [place] [facility] Right: Hip JNJ : [employer] 02/14/2020 [id number] / / [id number] Lens 20.5 [id number] - [id number] - [id number] Implanted:Qty: 1 on 10/14/2020 by Lester Livingston DO at OR [facility] Right: Eye DUANE : SURGICAL 2025 [id number] / [id number] / Lens 20.0 [id number] - [id number] - [id number] Implanted:Qty: 1 on 12/09/2020 by Lester Livingston DO at OR [facility] Left: Eye DUANE : SURGICAL 07/13/2025 [id number] 0 / [id number] / documented as of this encounter Advance Directives * Full Code (Latest Code Status on File) Date Activated Date Inactivated Comments 04/22/2010 6:35 PM 04/27/2010 9:02 PM Question Answer Comments Discussion of Advance Directives occurred with: Not Discussed Care Teams Molded Goods Embossing Press Operator Relationship Specialty Start Date End Date Gabriele Dumas MD [address] [place] [address] [place] [address] PCP - General Family Medicine 06/04/21 documented as of this encounter
--- OUTSIDE RECORDS SUMMARY | 2024-03-23 11:47 | External Medical Summary ---
Author Name Unknown Address Unknown Organization K01:LABORATORY [facility] - [address] [facility] [address] Laboratory Report Ordering Provider Test Date Status NIKIA AREVALO 02/26/2024 10:15:57 Final Observation Date Value Abnormality Reference (Units ) Status WBC, Total 02/26/2024 10:15:57 11.85 Above high normal 4.00-10.80 (K/uL) Final RBC 02/26/2024 10:15:57 5.87 4.50-5.25 (M/uL) Final Hemoglobin 02/26/2024 10:15:57 15.9 14.0-16.8 (g/dL) Final HCT 02/26/2024 10:15:57 51.3 Above high normal 40.0-48.4 (%) Final MCV 02/26/2024 10:15:57 87.4 82.0-99.5 (fL) Final MCH 02/26/2024 10:15:57 27.1 27.0-34.0 (pg) Final MCHC 02/26/2024 10:15:57 31.0 32.0-36.0 (g/dL) Final RDW 02/26/2024 10:15:57 14.3 11.5-15.5 (%) Final Platelets 02/26/2024 10:15:57 321 140-400 (K/uL) Final MPV 02/26/2024 10:15:57 11.0 6.6-11.1 (fL) Final Nucleated erythrocytes/100 leukocytes [Ratio] in Blood by Automated count 02/26/2024 10:15:57 0 <=0 (/100 WBCs) Final Performing Location LABORATORY [facility] - [address] [place] [address]
--- OUTSIDE RECORDS SUMMARY | 2024-03-23 11:47 | External Medical Summary | Summary of Care ---
Author Name Unknown Organization [facility] Address [address] [place] [address] Phone [phone] Care Team Providers Care Stull Hewer Name Role Phone Gabriele Dumas MD Primary Care Provide r Reason for Visit * Reason Comments Re-Check Encounter Details Date Type Department Care Team (Late st Contact Info) Description 02/23/2024 7:20 AM EST Office Visit Family Medicine [address] [phone] [place] [address] HTN, goal below 140/90*; PAD (peripheral artery disease) (HCC) Allergies Active Allergy Reactions Criticality Noted Date Comments Influenza Vaccines 01/18/2013 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 90 Tablet 5 3 Active OneTouch Delica Lancets 33G Use to test blood sugars once daily DxE11.9 100 Each 3 3 Active Glimepiride 4 MG Oral Tablet (Amaryl)Indicati [...] noon and 1 Capsule before bedtime. Active Doxycycline Hyclate 100 MG Oral CapsuleIndicatio ns:Acute frontal sinusitis, recurrence not specified Take 1 Capsule by mouth in the morning and 1 Capsule before bedtime. Do all this for 7 days. Take for 7 days. 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 04/28/2021 [...] as of this encounter (statuses as of 02/23/2024) Resolved Problems Problem Noted Date Diagnosed Date [...] as of this encounter (statuses as of 02/23/2024) Immunizations No known immunizationsdocumented as of this [...] Sign Reading Time Taken Comments Blood Pressure 160/80 02/23/2024 7:42 AM EST Pulse 75 02/23/2024 7:22 AM EST Temperature 36 C (96.8 F) 02/23/2024 7:22 AM EST Respiratory Rate 16 02/23/2024 7:22 AM EST Oxygen Saturation 98% 02/23/2024 7:22 AM EST Inhaled Oxygen Concentration - - Weight 90.7 kg (200 lb) 02/23/2024 7:22 AM EST Height - - Body Mass Index 27.89 11/15/2023 10:15 AM EDT documented in this encounter Nursing Notes * Miguelina Eaton LPN - 02/23/2024 7:20 AM EST 2 month recheck documented in this encounter Plan of Treatment Upcoming Encounters Date Type Department Care Team (Late st Contact Info) Description 02/26/2024 9:00 AM EST Office Visit Vascular Surg [facility] [address] [place] [address] Manoj Chan MD [address] [place] [address] 02/28/2024 8:10 AM EST Office Visit Pharmacy, [address] [place] [address] [place] [address] 05/13/2024 7:20 AM EDT Office Visit Family Medicine [address] [place] [phone] Gabriele Dumas MD [address] [place] [address] [place] [address] 05/24/2024 11:00 AM EDT Office Visit Ari Howard [place] [address] Lester Livingston DO [address] [place] [address] 05/24/2024 1:00 PM EDT Hospital Encounter ENDO [facility], Endoscopy Room [facility] [address] [place] [phone] Dawn Hilario MD [address] [place] [address] 05/24/2024 1:00 PM EDT - 05/24/2024 1:30 PM EDT Surgery ENDO [facility], Endoscopy Room [facility] [address] [place] [phone] Dawn Hilario MD [address] [place] [address] COLONOSCOPY FLEXIBLE PROXIMAL DIAGNOSTIC 07/15/2024 2:00 PM EDT Office Visit Gastroenterology, [facility] [address] [facility] [place] [address] Lynnette Christian CRNP [address] [facility] [place] [address] Scheduled Procedures Name Priority Associated Diagnoses Date/Ti [...] this encounter Medical Devices Implanted Type Area Archeologist Device Identifier Shelf Expiration Date Model / Serial / Lot Filter Navalign Femoral Tulip - [id number] Implanted:Qty: 1 on 04/21/2010 at OR [facility] [place] Right: Inferior Vena Cava COOK : [employer] 04/12/2013 [id number] / / [id number] [place] Acetabular Liner +4 [id number] 52mm Od Implanted:Qty: 1 on 04/22/2010 at OR [facility] [place] Right: Hip 03/16/2015 [id number] / / [id number] Stem [place] Por Tpr Stdoff S6 - [id number] Implanted:Qty: 1 on 04/22/2010 at OR [facility] [place] Right: Hip JNJ : [employer] 02/14/2020 [id number] / / [id number] Head Mtl Artic Edwardo 36mm Pl5 - [id number] Implanted:Qty: 1 on 04/22/2010 at OR [facility] [place] Right: Hip JNJ : [employer] 12/14/2014 [id number] / / [id number] Fem Acet [place] 300 52mm - [id number] Implanted:Qty: 1 on 04/22/2010 at OR [facility] [place] Right: Hip JNJ : [employer] [id number] / / [id number] Screw Selftap 3.5x55 204.855 - [id number] Implanted:Qty: 1 on 04/22/2010 at OR [facility] [place] Right: Hip SYNTHES 204.855 / / Screw Canc 4mm 206.065 - [id number] Implanted:Qty: 1 on 04/22/2010 at OR [facility] [place] Right: Hip SYNTHES 206.065 / / Screw Canc [place] 6.5x50mm - [id number] Implanted:Qty: 1 on 04/22/2010 at OR [facility] [place] Right: Hip JNJ : [employer] [id number] / / [id number] Screw Canc [place] 6.5x30mm - [id number] Implanted:Qty: 1 on 04/22/2010 at OR [facility] [place] Right: Hip JNJ : [employer] 02/14/2020 [id number] / / [id number] Screw Selftap 3.5x55 204.855 - [id number] Implanted:Qty: 2 on 04/22/2010 at OR [facility] [place] Right: Hip SYNTHES 204.855 / / Screw Canc 4mm 206.065 - [id number] Implanted:Qty: 1 on 04/22/2010 at OR [facility] [place] Right: Hip SYNTHES 206.065 / / Screw Canc [place] 6.5x15mm - [id number] Implanted:Qty: 1 on 04/22/2010 at OR [facility] [place] Right: Hip JNJ : [employer] 02/14/2020 [id number] / / [id number] Lens 20.5 [id number] - [id number] - [id number] Implanted:Qty: 1 on 10/14/2020 by Lester Livingston DO at OR [facility] Right: Eye DUANE : SURGICAL 2025 [id number] / [id number] / Lens 20.0 [id number] - [id number] 086 - [id number] Implanted:Qty: 1 on 12/09/2020 by Lester Livingston DO at OR [facility] Left: Eye DUANE : SURGICAL 07/13/2025 [id number] / [id number] / documented as of this encounter Visit Diagnoses Diagnosis HTN, goal below 140/90- Primary Unspecified essential hypertension PAD (peripheral artery disease) (HCC) Peripheral vascular disease, unspecified Diarrhea, unspecified type documented in this encounter Advance Directives * Full Code (Latest Code Status on File) Date Activated Date Inactivated Comments 04/22/2010 6:35 PM 04/27/2010 9:02 PM Question Answer Comments Discussion of Advance Directives occurred with: Not Discussed Care Teams Stull Hewer Relationship Specialty Start Date End Date Gabriele Dumas MD [address] [place] [address] [place] [phone] PCP - General Family Medicine 06/04/21 documented as of this encounter
--- OUTSIDE RECORDS SUMMARY | 2024-03-23 11:47 | External Medical Summary | Summary of Care ---
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 90 Tablet 5 3 Active OneTouch Delica Lancets 33G Use to test blood sugars once daily DxE11.9 100 Each 3 3 Active Novofine Pen Needle 32G X 6 MM (NOVOFINE 32G PEN NEEDLE)Indication s:Type 2 diabetes mellitus with hemoglobin A1c goal of less than 8.0% ([facility]) Use it daily 100 Each 4 Active [...] noon and 1 Capsule before bedtime. 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 (Household - for ages [...] Care Team (Latest Contact Info) Description 03/15/2024 1:13 PM EST Hospital Encounter [facility] OPERATING ROOM [facility] [address] [place] [phone] Manoj Chan MD [address] [place] [address] 03/15/2024 1:13 PM EST - 03/15/2024 4:03 PM EST Surgery OR [facility], OPERATING ROOM C, [facility] [address] [place] [address] Manoj Chan MD [address] [place] [address] AMPUTATION FOOT TRANSMETATARSAL 03/21/2024 9:00 AM EST Office Visit Vascular Surg [facility] [address] [place] [address] Keven Maya CRNP [address] [place] [address] 04/05/2024 1:00 PM EST Appointment Vascular Lab [address] [address] 04/05/2024 1:30 PM EST Appointment Vascular Lab [place] [address] [place] [address] 04/05/2024 2:20 PM EST Office Visit Vascular Surg [facility] [address] [place] [address] Manoj Chan MD [address] [place] [address] 05/13/2024 7:20 AM EDT Office Visit Family [address] [place] [phone] Gabriele Dumas MD [address] [place] [address] [place] [address] 05/24/2024 11:00 AM EDT Office Visit Ophthal[place]Ari [place] [address] Lester Livingston DO [address] [place] [address] 05/24/2024 1:00 PM EDT Hospital Encounter ENDO [facility], Endoscopy Room [facility] [address] [facility] [place] [phone] Dawn Hilario MD [address] [place] [address] 05/24/2024 1:00 PM EDT - 05/24/2024 1:30 PM EDT Surgery ENDO [facility], Endoscopy Room [facility] [address] [place] [phone] Dawn Hilario MD [address] [place] [address] COLONOSCOPY FLEXIBLE PROXIMAL DIAGNOSTIC 07/15/2024 2:00 PM EDT Office Visit Gastroenterology, [facility] [address] [facility] [place] [address] Lynnette Christian CRNP [address] [facility] 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 with ulceration of other part of foot (HCC) Diabetes mellitus with complication (HCC) Small vessel disease (HCC) Dyslipidemia, goal LDL below 100 Diabetic ulcer of 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, with necrosis of bone (HCC) 03/15/2024 1:13 PM EST IMAGING SUPERVISION & INTERPRETATION EXTREMITY UNILATERAL Atherosclerosis of [place] artery of right lower extremity with ulceration of other part of foot (HCC) Diabetes mellitus with complication (HCC) Small vessel disease (HCC) Dyslipidemia, goal LDL below 100 Diabetic ulcer of 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, with necrosis of bone (HCC) 03/15/2024 1:13 PM EST TIB/PERON ART. REVASC W/STENT+ANGIO, FIRST Atherosclerosis of [place] artery of right lower extremity with ulceration of other part of foot (HCC) Diabetes mellitus with complication (HCC) Small vessel disease (HCC) Dyslipidemia, goal LDL below 100 Diabetic ulcer of 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, with necrosis of bone (HCC) 03/15/2024 1:13 PM EST COLONOSCOPY FLEXIBLE PROXIMA L DIAGNOSTIC [...] this encounter Medical Devices Implanted Type Area Ingot Stripper Device Identifier Shelf Expiration Date Model / Serial / Lot Filter Navalign Femoral Tulip - [id number] Implanted:Qty: 1 [place]/21/[place] [facility]: Inferior Vena Cava COOK : [employer] 04/12/2013 [id number] / / [id number] Telephone Acetabular Liner +4 [id number] 52mm Od Implanted:Qty: 1 on 04/22/2010 [place] [facility] [place]: Hip 03/16/2015 1221-36-152 / / [id number] Stem [place] Por Tpr Stdoff S6 - [id number] Implanted:Qty: 1 on 04/22/2010 [place] [facility]: Hip JNJ : [employer] 02/14/2020 [id number] / / [id number] Head Mtl Artic Edwardo 36mm Pl5 - [id number] Implanted:Qty: 1 on 04/22/2010 [place] [facility] [place]: Hip JNJ : [employer] 12/14/2014 [id number] / / [id number] Cup Fem Acet Telephone 300 52mm - [id number] Implanted:Qty: 1 on 04/22/2010 [place] [facility] Right: Hip JNJ : [employer] [id number] / / [id number] Screw Selftap 3.5x55 204.855 - [id number] Implanted:Qty: 1 on 04/22/2010 [place] [facility] Right: Hip SYNTHES 204.855 / / Screw Canc 4mm 206.065 - [id number] Implanted:Qty: 1 on 04/22/2010 at [place] [facility] Right: Hip SYNTHES 206.065 / / Screw Canc Telephone 6.5x50mm - [id number] Implanted:Qty: 1 on 04/22/2010 at [place] [facility] Right: Hip JNJ : [employer] [id number] / / [id number] Screw Canc Telephone 6.5x30mm - [id number] Implanted:Qty: 1 on 04/22/2010 at [place] [facility] Right: Hip JNJ : [employer] 02/14/2020 [id number] / / [id number] Screw Selftap 3.5x55 204.855 - [id number] Implanted:Qty: 2 on 04/22/2010 at [place] [facility] Right: Hip SYNTHES 204.855 / / Screw Canc 4mm 206.065 - [id number] Implanted:Qty: 1 on 04/22/2010 at [place] [facility] Right: Hip SYNTHES 206.065 / / Screw Canc Telephone 6.5x15mm - [id number] Implanted:Qty: 1 on 04/22/2010 at [place] [facility] Right: Hip JNJ : [employer] 02/14/2020 [id number] / / [id number] Lens 20.5 [id number] - [id number] 039 - [id number] Implanted:Qty: 1 on 10/14/2020 by Lester Livingston DO at OR [facility] Right: Eye DUANE : SURGICAL 2025 [id number] / [id number] / Lens 20.0 [id number] - [id number] 086 - [id number] Implanted:Qty: 1 on 12/09/2020 by Lester Livingston DO at OR [facility] Left: Eye DUANE : SURGICAL 07/13/2025 [id number] / [id number] / documented as of this encounter Advance Directives * Full Code (Latest Code Status on File) Date Activated Date Inactivated Comments 04/22/2010 6:35 PM 04/27/2010 9:02 PM Question Answer Comments Discussion of Advance Directives occurred with: Not Discussed Care Teams Coil Maker Relationship Specialty Start Date End Date Gabriele Dumas MD [address] [place] [address] [place] [phone] PCP - General Family Medicine 06/04/21 documented as of this encounter
--- OUTSIDE RECORDS SUMMARY | 2024-03-23 11:47 | External Medical Summary ---
Author Name Unknown Address Unknown Organization : Laboratory Report Ordering Provider Test Date Status KAILYN KIMBALL 03/15/2024 13:31:33 Final Observation Date Value Abnormality Reference (Units ) Status Glucose Point of Care 03/15/2024 13:31:33 98 70-120 (mg/dL) Final Performing Location
--- OUTSIDE RECORDS SUMMARY | 2024-03-23 11:47 | External Medical Summary ---
Author Name Unknown Address Unknown Organization : Laboratory Report Ordering Provider Test Date Status KAILYN KIMBALL 03/15/2024 15:52:55 Final Observation Date Value Abnormality Reference (Units ) Status Glucose Point of Care 03/15/2024 15:52:55 130 Above high normal 70-120 (mg/dL) Final Performing Location
--- OUTSIDE RECORDS SUMMARY | 2024-03-23 11:47 | External Medical Summary | Summary of Care ---
Author Name Unknown Organization [facility] Address [address] [place] [address] Phone [phone] Care Team Providers Care Roller Operator Name Role Phone Gabriele Dumas MD Primary Care Provide r Reason for Visit * Reason Comments Dosage Adjustment In Person (Anticoag Cl inic) Diabetes Follow-Up Encounter Details Date Type Department Care Team (Late st Contact Info) Description 02/28/2024 8:10 AM EST Office Visit Pharmacy, [address] [place] [address] [place] [address] Type 2 diabetes mellitus with hemoglobin A1c goal of less than 8.0% ([facility])* Allergies Active Allergy Reactions Criticality Noted Date Comments Influenza Vaccines 01/18/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 (statuses as of 02/28/2024) Medications Atorvastatin Calcium 40 MG Oral Tablet [...] as of this encounter (statuses as of 02/28/2024) Active Problems Problem Noted Date Diagnosed Date Atherosclerosis of eagle artery of extremity Diabetes mellitus with complication [...] 04/28/2021 History of osteomyelitis 04/28/2021 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 Patient presents for return diabetic visit. DIABETES: Current diabetic medications: TEMP DEC Metformin ER 500 mg - 3 tablets in the morning, further decrease to 2 tablets if improvement noted Victoza 1.8mg under the skin daily (increased by PCP on 09/05) Glimepiride 4mg BID Farxiga 10mg daily eGFR > 90 10/25/23 Target A1c < 8% Medication Injection Site: Abdomen Lifestyle: Diet: Discussed below Glucose Review/SMBG: Readings obtained from patient documented BG logbook Pre am 151 152 153 142 149 137 154 145 126 119 142 155 124 120 120 124 118 130 128 145 143 Average 137 Hi [address] 137.0526 Range 37 Hypoglycemia: Does your blood sugar go below 70 mg/dL? No Hyperglycemia symptoms present: none Recent Labs Units 02/05/24 0000 12/18/23 1044 10/25/23 1130 HEMOGLOBIN A1C - [facility] % -- 8.1* 9.6* HEMOGLOBIN, [id number] LAB 7.6* -- -- Recent Labs Units 02/26/24 1015 02/05/24 0000 01/02/24 0000 ESTIMATED GLOMERULAR FILTRATION RATE - [facility] mL/min >90 >90 >90 CREATININE - [facility] mg/dL 0.6 0.86 0.68* HYPERTENSION: Patient on ACEi/ARB: yes BP Readings from Last 3 Encounters: 02/26/24 152/82 02/23/24 160/80 02/06/24 170/80 Blood pressure at goal: yes HYPERLIPIDEMIA: Recent Labs Units 03/17/23 0951 03/16/22 0849 LDL CHOLESTEROL (CALCULATED) - [facility] mg/dL 36 123 Does patient have clinical ASCVD? No, is patient LDL less than 70mg/dL? Yes HEALTH MAINTENANCE REVIEW: Health Maintenance Due Topic Date Due DTap/Tdap Vaccines (1 - Tdap) Never done Pneumococcal Vaccine: 50+ Years (1 of 2 - PCV) Never done Adult Wellness Visit Never done COVID-19 Vaccine (2023- season) Never done Diabetic Foot Exam 02/28/2024 ASSESSMENT & PLAN: ICD-10-CM 1. Type 2 diabetes mellitus with hemoglobin A1c goal of less than 8.0% ([facility]) E11.9 Considerations: H/o foot osteo H/o GBS with flu vax Medicare ([employer]) w/ PACE Trulicity --> Victoza due to back order Goes by Imtiaz BG Readings - Blood sugars reviewed. Updated A1c obtained last month showed further improvement to goal. Congratulated patient, encouraged to keep up the great work! Medications - Reviewed current regimen. Patient brought in some Jardiance pills he found as well asFarxiga. Questioning if they are equivalent. Reviewed and discussed with patient that these doses are not equivalent, will plan to continue with Farxiga at this time. Diet, Exercise, Lifestyle - Patient attributes improvement in BG readings to significant diet changes. Specifically, reducing portion sizes and what he is eating. He has upcoming partial foot amputation scheduled for next week. He is planning to watch blood sugars closely during this time. We reviewed preparing for surgery with pre-made healthy meals and snacks. Patient agreeable. Patient is agreeable to SMBG 1 time(s) daily. Patient aware to contact clinic if any hypoglycemia before next visit. MEDICATION CHANGES: no change Diabetic Medications: Metformin ER 500 mg - 3 tablets in the morning Victoza 1.8mg under the skin daily (increased by PCP on 09/05) Glimepiride 4mg BID Farxiga 10mg daily eGFR > 90 02/26/24 Target A1c < 8% HEALTH MAINTENANCE INTERVENTIONS: Labs: Up to Date Immunizations: covid, tdap,pneumo Foot Exam: Due Eye Exam: Up to Date Annual Wellness Visit: Due FOLLOW UP: Return to clinic in 5 months 07/29/2024 I spent a total of 30-39 minutes (exact time 35 mins) on the date of service in preparation, delivery, and documentation of the care provided to Reji Santos excluding any time spent in the performance of separately billed services. Renee Shukla RPh Clinical Pharmacist - Cutting And Splicing Supervisor Medication Therapy Management Clinic 02/28/2024, 8:10 AM documented in this encounter Plan of Treatment Upcoming Encounters Date Type Department Care Team (Latest Contact Info) Description 03/08/2024 1:21 PM EST Hospital Encounter [facility], OPERATING ROOM [place] [address] [place] [address] Manoj Chan MD [facility] [place] [place] [address] 03/08/2024 1:21 PM EST - 03/08/2024 4:11 PM EST Surgery [facility], OPERATING ROOM [facility], [place] [address] [place] [address] Manoj Chan MD [facility] [place] [place] [address] AMPUTATION FOOT TRANSMETATARSAL 03/21/2024 9:00 AM EST Office Visit Vascular Surg [address] [address] Keven Maya CRNP [address] [place] [address] 04/05/2024 1:00 PM EST Appointment Vascular Lab [address] [address] 04/05/2024 1:30 PM EST Appointment Vascular Lab [address] [address] 04/05/2024 2:20 PM EST Office Visit Vascular Surg [address] [address] Manoj Chan MD [facility] [place] [address] 05/13/2024 7:20 AM EDT Office Visit Family Medicine [address] [place] [phone] Gabriele Dumas MD [address] [place] [address] [place] [address] 05/24/2024 11:00 AM EDT Office Visit Ophthalmology, [place] [address] [place] [address] Lester Livingston DO [address] [place] [address] 05/24/2024 1:00 PM EDT Hospital Encounter ENDO [facility], Endoscopy Room [facility] [address] [place] [phone] Dawn Hilario MD [address] [place] [address] 05/24/2024 1:00 PM EDT - 05/24/2024 1:30 PM EDT Surgery ENDO [facility], Endoscopy Room [facility] [address] [place] [phone] Dawn Hilario MD [address] [place] [address] COLONOSCOPY FLEXIBLE PROXIMAL DIAGNOSTIC 07/15/2024 2:00 PM EDT Office Visit Gastroenterology, [facility] [address] 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 (HCC) Diabetes mellitus with complication (HCC) Small vessel disease (HCC) Dyslipidemia, goal LDL below 100 Diabetic ulcer of 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, with necrosis of bone (HCC) 03/08/2024 1:21 PM EST IMAGING SUPERVISION & INTERPRETATION EXTREMITY UNILATERAL 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 REVASC W/STENT+ANGIO, FIRST Atherosclerosis of eagle artery of right lower extremity with ulceration [...] this encounter Medical Devices Implanted Type Area Cath Lab Radiological Technologist Device Identifier Shelf Expiration Date Model / Serial / Lot Filter Navalign Femoral Tulip - [id number] Implanted:Qty: 1 on 04/21/2010 at OR [facility] Right: Inferior Vena Cava COOK : [employer] 04/12/2013 [id number] / / [id number] [place] Acetabular Liner +4 [id number] 52mm Od Implanted:Qty: 1 on 04/22/2010 at OR [facility] Right: Hip 03/16/2015 [id number] / / [id number] Stem Siren Por Tpr Stdoff S6 - [id number] Implanted:Qty: 1 on 04/22/2010 at OR [facility] Right: Hip JNJ : [employer] 02/14/2020 [id number] / / [id number] Head Mtl Artic Edwardo 36mm Pl5 - [id number] Implanted:Qty: 1 on 04/22/2010 at OR [facility] Right: Hip JNJ : [employer] 12/14/2014 [id number] / / [id number] Cup Fem Acet [place] 300 52mm - [id number] Implanted:Qty: 1 on 04/22/2010 at OR [facility] Right: Hip JNJ : [employer] [id number] / / [id number] Screw Selftap 3.5x55 204.855 - [id number] Implanted:Qty: 1 on 04/22/2010 at OR [facility] Right: Hip SYNTHES 204.855 / / Screw Canc 4mm 206.065 - [id number] Implanted:Qty: 1 on 04/22/2010 at [facility] Right: Hip SYNTHES 206.065 / / Screw Canc [place] 6.5x50mm - [id number] Implanted:Qty: 1 on 04/22/2010 at [facility] Right: Hip JNJ : [employer] [id number] / / [id number] Screw Canc [place] 6.5x30mm - [id number] Implanted:Qty: 1 on 04/22/2010 at [facility] Right: Hip JNJ : [employer] 02/14/2020 [id number] / / [id number] Screw Selftap 3.5x55 204.855 - [id number] Implanted:Qty: 2 on 04/22/2010 at OR [facility] Right: Hip SYNTHES 204.855 / / Screw Canc 4mm 206.065 - [id number] Implanted:Qty: 1 on 04/22/2010 at OR [facility] Right: Hip SYNTHES 206.065 / / Screw Canc [place] 6.5x15mm - [id number] Implanted:Qty: 1 on 04/22/2010 at OR [facility] Right: Hip JNJ : [employer] 02/14/2020 [id number] / / [id number] Lens 20.5 [id number] - [id number] - [id number] Implanted:Qty: 1 on 10/14/2020 by Lester Livingston DO at OR [facility] Right: Eye DUANE : SURGICAL 2025 [id number] / [id number] / Lens 20.0 [id number] - [id number] 086 - [id number] Implanted:Qty: 1 on 12/09/2020 by Lester Livingston DO at OR [facility] Left: Eye DUANE : SURGICAL 07/13/2025 [id number] / [id number] / documented as of this encounter [...] (HCC) Peripheral vascular disease, unspecified Atherosclerosis of eagle artery of extremity (HCC) Atherosclerosis of eagle arteries of the extremities, unspecified Diabetes mellitus with complication (HCC) Type II or unspecified type diabetes mellitus with unspecified complication, not stated as uncontrolled Small vessel disease (HCC) Peripheral vascular disease, unspecified Dyslipidemia, goal LDL below 100 Other and unspecified hyperlipidemia Type 2 diabetes mellitus with hemoglobin A1c goal of less than 8.0% (HCC)- Primary Atherosclerosis of eagle artery of right lower extremity with ulceration [...] Directives occurred with: Not Discussed Care Teams Roller Operator Relationship Specialty Start Date End Date Gabriele Dumas MD [address] [place] [address] [place] [address] PCP - General Family Medicine 06/04/21 documented as of this encounter
--- OUTSIDE RECORDS SUMMARY | 2024-03-23 11:47 | External Medical Summary | Summary of Care ---
Author Name Unknown Organization [facility] Address [address] [place] [address] Phone [phone] Care Team Providers Care Container Shop Welder Name Role Phone Gabriele Horne MD Primary Care Provide r Reason for Visit * Reason Comments eRx-Medication Refill Encounter Details Date Type Department Care Team (Late st Contact Info) Description 03/07/2024 Refill Family Medicine [address] [phone] Gabriele Horne MD [address] [place] [address] [place] [address] Dyslipidemia, goal LDL below 100*; Type 2 diabetes mellitus with hemoglobin A1c goal of less than 8.0% ([facility]) Allergies Active Allergy Reactions Criticality Noted Date Comments Influenza Vaccines 01/18/2013 Guilen-Gladstone syndrome documented as of this encounter (statuses as of 03/07/2024) Medications Atorvastatin Calcium 40 MG Oral Tablet (Lipitor) Take 1 Tablet by mouth in the morning. 90 Tablet 5 04/06/19 23 Active OneTouch Delica Lancets 33G Use to test blood sugars once daily DxE11.9 100 Each 3 10/05/19 23 Active Novofine Pen Needle 32G X 6 MM (NOVOFINE 32G PEN NEEDLE)Indicatio ns:Type 2 diabetes mellitus with hemoglobin A1c goal of less than 8.0% ([facility]) Use it daily 100 Each 07/20/19 24 Active Lisinopril 40 MG Oral TabletIndication s:HTN, goal below 140/90 TAKE 1 TABLET BY MOUTH IN THE MORNING 90 Tablet 2 08/08/19 24 Active OneTouch Verio In Vitro Strip (Glucose Blood)Indication s:Type 2 diabetes mellitus with hemoglobin A1c goal of less than 8.0% ([facility]) Use to test blood sugars once daily DxE11.9 100 Strip 3 11/06/19 24 Active Aspirin 81 MG Oral Tablet Delayed ReleaseIndicatio ns:PAD (peripheral artery disease) ([facility]) Take 1 Tablet by mouth in the morning. 100 Tablet 3 11/08/19 24 Active metFORMIN HCl ER 500 MG Oral Tablet Extended Release 24 Hour (Glucophage XR)Indications:T ype 2 diabetes mellitus with hemoglobin A1c goal of less than 8.0% ([facility]) TAKE 4 TABLETS BY MOUTH ONCE DAILY IN THE MORNING 360 Tablet 1 12/04/19 24 Active Liraglutide 18 MG/3ML Subcutaneous Solution Pen-injector (Victoza)Indicat ions:Type 2 diabetes mellitus with hemoglobin A1c goal of less than 8.0% ([facility]) Inject 1.8 mg under the skin in the morning. 9 mL 5 12/04/19 24 Active amLODIPine Besylate 5 MG Oral Tablet (Norvasc)Indicat ions:HTN, goal below 140/90 Take 1 Tablet by mouth in the morning. 90 Tablet 1 12/18/19 24 Active Dapagliflozin Propanediol 10 MG Oral Tablet (Farxiga)Indicat ions:Type 2 diabetes mellitus with hemoglobin A1c goal of less than 8.0% ([facility]) Take 1 Tablet by mouth in the morning. 90 Tablet 1 12/25/19 24 Active Loperamide HCl 2 MG Oral Capsule (Imodium A-D) Take 1 Capsule by mouth 4 times a day as needed for Diarrhea. Active Kaopectate 262 MG Oral Tablet (Bismuth Subsalicylate) Take by mouth. Active Colestipol HCl 1 GM Oral Tablet (Colestid) 2 tabs by mouth at lunch and 2 at bedtime 120 Tablet 12 01/02/20 24 Active Azithromycin 250 MG Oral Tablet (Zithromax Z-Ochoa) Take two tablets by mouth on first day, then 1 tablet daily until gone 6 Tablet 01/17/20 24 Active Silverseal Hydrogel Dressing 2"X3" External Pad Apply topically to affected area. Active Clindamycin HCl 300 MG Oral Capsule Take 1 Capsule by mouth in the morning and 1 Capsule at noon and 1 Capsule before bedtime. Active Glimepiride 4 MG Oral Tablet (Amaryl)Indicati ons:Type 2 diabetes mellitus with hemoglobin A1c goal of less than 8.0% (HCC) TAKE 1 TABLET BY MOUTH IN THE MORNING AND 1 AT BEDTIME 180 Tablet 1 03/07/19 25 Active Glimepiride 4 MG Oral Tablet (Amaryl)Indicati ons:Type 2 diabetes mellitus with hemoglobin A1c goal of less than 8.0% (HCC) Take 1 Tablet by mouth in the morning and 1 Tablet before bedtime. 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 04/28/2021 [...] encounter Miscellaneous Notes * Telephone Encounter - Heather Coates demond - 03/07/2024 11:36 AM EST Signed Prescriptions: Disp Refills Glimepiride 4 MG Oral Tablet (Amaryl) 180 Ta*1 Sig: TAKE 1 TABLET BY MOUTH IN THE MORNING AND 1 AT BEDTIMEAuthorizing Provider: Juan Antonio HORNE User: HEATHER COATES documented in this encounter Plan of Treatment Upcoming Encounters Date Type Department Care Team (Latest Contact Info) Description 03/15/2024 1:13 PM EST Hospital Encounter [facility] OPERATING ROOM [facility] [place] [address] [place] [address] Manoj Chan MD [address] [place] [address] 03/15/2024 1:13 PM EST - 03/15/2024 4:03 PM EST Surgery [facility] OPERATING ROOM [facility] [place] [address] [place] [phone] Manoj Chan MD [address] [place] [address] AMPUTATION FOOT TRANSMETATARSAL 03/21/2024 9:00 AM EST Office Visit Vascular Surg [facility] [place] [address] [place] [address] Keven Maya CRNP [address] [place] [address] 04/05/2024 1:00 PM EST Appointment Vascular Lab [facility] [place] [address] [place] [address] 04/05/2024 1:30 PM EST Appointment Vascular Lab [place] [address] [address] [facility] [place] [address] 04/05/2024 2:20 PM EST Office Visit Vascular Surg [place] [address] [place] [address] Manoj Chan MD [address] [place] [address] 05/13/2024 7:20 AM EDT Office Visit Family Medicine [address] [place] [phone] Gabriele Horne MD [address] [place] [address] [place] [address] 05/24/2024 11:00 AM EDT Office Visit OphthalmologyAri [place] [address] Lester Livingston DO [address] [place] [address] 05/24/2024 1:00 PM EDT Hospital Encounter [facility]O [facility], Endoscopy Room [facility] [address] [place] [phone] Dawn Hilario MD [address] [address] 05/24/2024 1:00 PM EDT - 05/24/2024 1:30 PM EDT Surgery ENDO [facility], Endoscopy Room [facility] [address] [place] [address] Dawn Hilario MD [address] [phone] COLONOSCOPY FLEXIBLE PROXIMAL DIAGNOSTIC 07/15/2024 2:00 PM EDT Office Visit Gastroenterology, [facility] [address] [place] [address] Lynnette Christian CRNP [address] [place] [address] 07/29/2024 7:30 AM EDT Office Visit Pharmacy, [address] [place] [address] [place] [address] Scheduled Orders Name Type Priority Associated Diagnoses Orde r Schedule LIPID PANEL WITH DIRECT LDL IF TG IS HIGH Lab Routine Dyslipidemia, goal LDL below 100 Expected: 03/21/2024 (Approximate), Expires: 03/07/2025 Scheduled Procedures Name Priority Associated Diagnoses Date/Ti me AMPUTATION FOOT TRANSMETATARSAL Atherosclerosis of [place] artery of right lower extremity with ulceration of other part of foot (HCC) Diabetes mellitus with complication (HCC) Small vessel disease (HCC) Dyslipidemia, goal LDL below 100 Diabetic ulcer of 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, with necrosis of bone (HCC) 03/15/2024 1:13 PM EST IMAGING SUPERVISION & INTERPRETATION EXTREMITY UNILATERAL Atherosclerosis of [place] artery of right lower extremity with ulceration of other part of foot (HCC) Diabetes mellitus with complication (HCC) Small vessel disease (HCC) Dyslipidemia, goal LDL below 100 Diabetic ulcer of 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, with necrosis of bone (HCC) 03/15/2024 1:13 PM EST TIB/PERON ART. REVASC W/STENT+ANGIO, FIRST Atherosclerosis of [place] artery of right lower extremity with ulceration [...] this encounter Medical Devices Implanted Type Area Logistics Lead Device Identifier Shelf Expiration Date Model / Serial / Lot Filter Navalign Femoral Tulip - [id number] Implanted:Qty: 1 on 04/21/2010 at [place] [facility] Right: Inferior Vena Cava COOK : [employer] 04/12/2013 [id number] / / [id number] [place] Acetabular Liner +4 [id number] 52mm Od Implanted:Qty: 1 on 04/22/2010 at [place] [facility] Right: Hip 03/16/2015 1221-36-152 / / [id number] Stem [place] Por Tpr Stdoff S6 - [id number] Implanted:Qty: 1 on 04/22/2010 at [place] [facility] Right: Hip JNJ : [employer] 02/14/2020 [id number] / / [id number] Head Mtl Artic Edwardo 36mm Pl5 - [id number] Implanted:Qty: 1 on 04/22/2010 at [place] [facility] Right: Hip JNJ : [employer] 12/14/2014 [id number] / / [id number] Cup Fem Acet [place] 300 52mm - [id number] Implanted:Qty: 1 on 04/22/2010 at [place] [facility] Right: Hip JNJ : [employer] [id number] / / [id number] Screw Selftap 3.5x55 204.855 - [id number] Implanted:Qty: 1 on 04/22/2010 at [place] [facility] Right: Hip SYNTHES 204.855 / / Screw Canc 4mm 206.065 - [id number] Implanted:Qty: 1 on 04/22/2010 at [place] [facility] Right: Hip SYNTHES 206.065 / / Screw Canc [place] 6.5x50mm - [id number] Implanted:Qty: 1 on 04/22/2010 at [place] [facility] Right: Hip JNJ : [employer] [id number] / / [id number] Screw Canc [place] 6.5x30mm - [id number] Implanted:Qty: 1 on 04/22/2010 at [place] [facility] Right: Hip JNJ : [employer] 02/14/2020 [id number] / / [id number] Screw Selftap 3.5x55 204.855 - [id number] Implanted:Qty: 2 on 04/22/2010 at [place] [facility] Right: Hip SYNTHES 204.855 / / Screw Canc 4mm 206.065 - [id number] Implanted:Qty: 1 on 04/22/2010 at [place] [facility] Right: Hip SYNTHES 206.065 / / Screw Canc [place] 6.5x15mm - [id number] Implanted:Qty: 1 on 04/22/2010 at [place] [facility] Right: Hip JNJ : [employer] 02/14/2020 [id number] / / [id number] Lens 20.5 [id number] - [id number] - [id number] Implanted:Qty: 1 on 10/14/2020 by Lester Livingston DO at OR [facility] Right: Eye DUANE : SURGICAL 2025 [id number] / [id number] / Lens 20.0 [id number] - [id number] - [id number] Implanted:Qty: 1 on 12/09/2020 by Lester Livingston DO at OR [facility] Left: Eye DUANE : SURGICAL 07/13/2025 [id number] 0 / [id number] / documented as of this encounter [...] (HCC) Peripheral vascular disease, unspecified Atherosclerosis of [place] artery of extremity (HCC) Atherosclerosis of [place] arteries of the extremities, unspecified Diabetes mellitus with complication (HCC) Type II or unspecified type diabetes mellitus with unspecified complication, not stated as uncontrolled Small vessel disease (HCC) Peripheral vascular disease, unspecified Dyslipidemia, goal LDL below 100 Other and unspecified hyperlipidemia Dyslipidemia, goal LDL below 100- Primary Other and unspecified hyperlipidemia Type 2 diabetes mellitus with hemoglobin A1c goal of less than 8.0% (HCC) Atherosclerosis of [place] artery of right lower extremity with ulceration [...] Directives occurred with: Not Discussed Care Teams Container Shop Welder Relationship Specialty Start Date End Date Gabriele Horne MD [address] [place] [address] [place] [address] PCP - General Family Medicine 06/04/21 documented as of this encounter
--- OUTSIDE RECORDS SUMMARY | 2024-03-23 11:47 | External Medical Summary ---
Author Name Unknown Address Unknown Organization K01:[facility] - [facility] [address] Laboratory Report Ordering Provider Test Date Status KATHLEEN DUMONT 03/15/2024 19:45:00 Final Observation Date Value Abnormality Reference (Units ) Status WBC, Total 03/15/2024 19:45:00 11.72 Above high normal 4.00-10.80 (K/uL) Final RBC 03/15/2024 19:45:00 5.32 4.50-5.25 (M/uL) Final Hemoglobin 03/15/2024 19:45:00 14.6 14.0-16.8 (g/dL) Final HCT 03/15/2024 19:45:00 46.5 40.0-48.4 (%) Final MCV 03/15/2024 19:45:00 87.4 82.0-99.5 (fL) Final MCH 03/15/2024 19:45:00 27.4 27.0-34.0 (pg) Final MCHC 03/15/2024 19:45:00 31.4 32.0-36.0 (g/dL) Final RDW 03/15/2024 19:45:00 14.0 11.5-15.5 (%) Final Platelets 03/15/2024 19:45:00 267 140-400 (K/uL) Final MPV 03/15/2024 19:45:00 11.3 6.6-11.1 (fL) Final Nucleated erythrocytes/100 leukocytes [Ratio] in Blood by Automated count 03/15/2024 19:45:00 0 <=0 (/100 WBCs) Final Performing Location [facility] - [address] [place] [address]
--- OUTSIDE RECORDS SUMMARY | 2024-03-23 11:48 | External Medical Summary | Summary of Care ---
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 90 Tablet 5 3 Active OneTouch Delica Lancets 33G Use to test blood sugars once daily DxE11.9 100 Each 3 3 Active Glimepiride 4 MG Oral Tablet (Amaryl)Indicati ons:Type 2 diabetes mellitus with hemoglobin A1c goal of less than 8.0% ([facility]) Take 1 Tablet by mouth in [...] Tablet Delayed ReleaseIndicatio ns:PAD (peripheral artery disease) ([facility]) Take 1 Tablet by mouth in [...] daily until gone 6 Tablet 4 Active Additional Information Patient not taking.Reported on 02/06/2024 Silverseal Hydrogel Dressing 2"X3" External Pad Apply topically to affected area. Active Clindamycin HCl 300 MG Oral Capsule Take 1 Capsule by mouth in the morning and 1 Capsule at noon and 1 Capsule before bedtime. 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 Unfortunately, Dr. Chan won't be in clinic on 02/20/24. He can either keep visit and see another provider, or we could reschedule for 02/26/24 if he prefersDr. Chan. Thanks, SARAH Mejia 02/16/2024 10:01 AM documented in this encounter Plan of Treatment Upcoming Encounters Date Type Department Care Team (Late st Contact Info) Description 02/20/2024 3:00 PM EST Office Visit Vascular Surg [facility] [address] [place] [address] Manoj Chan MD [address] [place] [address] 02/23/2024 7:20 AM EST Office Visit [address] [phone] Abida Ren CRNP [address] [place] [address] [place] [address] 02/28/2024 8:10 AM EST Office Visit Pharmacy, [address] [place] [address] [place] [address] 05/13/2024 7:20 AM EDT Office Visit [address] [place] [phone] Gabriele Dumas MD [address] [place] [address] [place] [address] 05/24/2024 11:00 AM EDT Office Visit Ophthalmology, [place] [address] Lester Livingston DO [address] [place] [address] 05/24/2024 1:00 PM EDT Hospital Encounter ENDO [facility], Endoscopy Room [facility] 132 [facility] [place] [phone] Dawn Hilario MD [address] [place] [address] 05/24/2024 1:00 PM EDT - 05/24/2024 1:30 PM EDT Surgery ENDO [facility], Endoscopy Room [facility] [address] [place] [phone] Dawn Hilario MD [address] [place] [address] COLONOSCOPY FLEXIBLE PROXIMAL DIAGNOSTIC 07/10/2024 9:30 AM EDT Office Visit Gastroenterology, [facility] [address] [place] [address] Lynnette Christian CRNP [address] [place] [address] Scheduled Procedures Name Priority Associated Diagnoses Date/Ti [...] Cancer Screening 06/16/2025 Lipid Panel 03/17/2028 03/17/2023, 02/02/2022, 03/01/2021, Additional history exists HPV (Gardasil) Vaccine [...] this encounter Medical Devices Implanted Type Area Administrative Analyst Device Identifier Shelf Expiration Date Model / Serial / Lot Filter Navalign Femoral Tulip - [id number] Implanted:Qty: 1 on 04/21/2010 at [place] [facility] [place] Right: Inferior Vena Cava COOK : [employer] 04/12/2013 [id number] / / [id number] [place] Acetabular Liner +4 [id number] Id 52mm Od Implanted:Qty: 1 on 04/22/2010 at OR [facility] Right: Hip 03/16/2015 1221-36-152 / / [id number] Stem [place] Por Tpr Stdoff S6 - [id number] Implanted:Qty: 1 on 04/22/2010 at OR [facility] [place] Right: Hip JNJ : [employer] 02/14/2020 [id number] / / [id number] Head Mtl Artic Edwardo 36mm Pl5 - [id number] Implanted:Qty: 1 on 04/22/2010 at OR [facility] Right: Hip JNJ : [employer] 12/14/2014 [id number] / / [id number] Cup Fem Acet [place] 300 52mm - [id number] Implanted:Qty: 1 on 04/22/2010 at [facility] Right: Hip JNJ : [employer] [id number] / / [id number] Screw Selftap 3.5x55 204.855 - [id number] Implanted:Qty: 1 on 04/22/2010 at [facility] Right: Hip SYNTHES 204.855 / / Screw Canc 4mm 206.065 - [id number] Implanted:Qty: 1 on 04/22/2010 at OR [facility] Right: Hip SYNTHES 206.065 / / Screw Canc [place] 6.5x50mm - [id number] Implanted:Qty: 1 on 04/22/2010 at OR [facility] Right: Hip JNJ : [employer] [id number] / / [id number] Screw Canc [place] 6.5x30mm - [id number] Implanted:Qty: 1 on 04/22/2010 at OR [facility] Right: Hip JNJ : [employer] 02/14/2020 [id number] / / [id number] Screw [place]ft[place] 3.5x55 204.855 - [id number] Implanted:Qty: 2 on 04/22/2010 at OR [facility] Right: Hip SYNTHES 204.855 / / Screw Canc 4mm 206.065 - [id number] Implanted:Qty: 1 on 04/22/2010 at OR [facility] Right: Hip SYNTHES 206.065 / / Screw Canc [place] 6.5x15mm - [id number] Implanted:Qty: 1 on 04/22/2010 at OR [facility] Right: Hip JNJ : [employer] 02/14/2020 [id number] / / [id number] Lens 20.5 [id number] - [id number] - [id number] Implanted:Qty: 1 on 10/14/2020 by Lester Livingston DO at [facility] Right: Eye DUANE : SURGICAL 2025 [id number] / [id number] 039 / Lens 20.0 [id number] - [id number] 086 - [id number] Implanted:Qty: 1 on 12/09/2020 by Lester Livingston DO at OR [facility] Left: Eye DUANE : SURGICAL 07/13/2025 [id number] / [id number] 086 / documented as of this encounter Advance Directives * Full Code (Latest Code Status on File) Date Activated Date Inactivated Comments 04/22/2010 6:35 PM 04/27/2010 9:02 PM Question Answer Comments Discussion of Advance Directives occurred with: Not Discussed Care Teams Occupational Therapist Assistants Relationship Specialty Start Date End Date Gabriele Dumas MD NPI: [id number] [place] [address] [place] [address] PCP - General Family Medicine 06/04/21 documented as of this encounter
--- OUTSIDE RECORDS SUMMARY | 2024-03-23 11:48 | External Medical Summary | Summary of Care ---
Author Name Unknown Organization [facility] Address [address] [place] [address] Phone [phone] Care Team Providers Care Fraternity Adviser Name Role Phone Gabriele Dumas MD Primary Care Provide r Encounter Details Date Type Department Care Team (Late st Contact Info) Description 01/28/2024 Telephone Pharmacy, [address] [place] [address] Services, Scheduling [address] [place] [address] Allergies Active Allergy Reactions Criticality Noted Date Comments Influenza Vaccines 01/18/2013 Guilen-Dumas syndrome documented as of this encounter (statuses as of 01/28/2024) Medications Atorvastatin Calcium 40 MG Oral Tablet [...] Pad Apply topically to affected area. 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 (Household - for ages [...] encounter Miscellaneous Notes * Telephone Encounter - Tawnya Winn OSA - 01/28/2024 7:58 AM EST Pt cx his mtm appt and is asking to reschedule for Feb 27 early like 7am if possible please give him a call Ty documented in this encounter Plan of Treatment Upcoming Encounters Date Type Department Care Team (Late st Contact Info) Description 02/23/2024 7:20 AM EST Office Visit Family Medicine Arturo [address] [place] [phone] Abida Ren CRNP [address] [place] [address] [place] [address] 03/20/2024 12:10 PM EST Office Visit Vascular Surgery, [address] [place] [address] [facility]oj Chan [facility] [address] [facility] [address] 05/13/2024 7:20 AM EDT Office Visit [address] [place] [phone] Gabriele Dumas MD [address] [place] [address] [place] [address] 05/24/2024 11:00 AM EDT [facility] [address] Lester Livingston DO 21 [facility] [place] [address] 05/24/2024 1:00 PM EDT Hospital Encounter ENDO [facility], Endoscopy Room [address] [place] [phone] Dawn Hilario MD [address] [place] [address] 05/24/2024 1:00 PM EDT - 05/24/2024 1:30 PM EDT Surgery ENDO [facility], Endoscopy Room [facility] [address] [facility] [place] [phone] Dawn Hilario MD [address] [place] [address] COLONOSCOPY FLEXIBLE PROXIMAL DIAGNOSTIC 07/10/2024 9:30 AM EDT Office Visit Gastroenterology, [facility] [address] [facility] [place] [address] Lynnette Christian CRNP 132 [facility] [place] [address] Scheduled Procedures Name Priority Associated Diagnoses Date/Ti me COLONOSCOPY FLEXIBLE PROXIMAL DIAGNOSTIC Diarrhea, unspecified type 05/24/2024 1:00 PM EDT Health Maintenance Due Date Last Done Comments Pneumococcal Vaccine: 65+ Years (1 of 2 - PCV) 06/16/1956 DTap/Tdap Vaccines (1 - Tdap) 1968 Colonoscopy 1994 Fecal Occult Blood Test 1994 Sigmoidoscopy 1994 Adult Wellness Visit 06/16/2015 COVID-19 Vaccine ( - season) 2023 Diabetic Foot Exam 02/28/2024 02/27/2023, 0 03/16/2022, 02/20/2020, Additional history exists HbA1c 06/16/2024 12/18/2023, 10/14, 09/04/2023, Additional history exists Diabetic Eye Exam 09/20/2024 09/21/2023, , 09/21/2023, Additional history exists Albumin/Creatinine Ratio 10/24/2024 024, 03/16/2022, 04/28/2021, Additional history exists Depression Screening 12/17/2024 12/18/2023 GFR 01/01/2025 01/02/2024, 05/2023, 10/25/2023, Additional history exists Cologuard 06/16/2025 06/16/2022, 2 06/2022, 06/07/2022 Colorectal Cancer Screening 06/16/2025 Lipid Panel [...] this encounter Medical Devices Implanted Type Area Rubber Goods Finisher Device Identifier Shelf Expiration Date Model / Serial / Lot Filter Navalign Femoral Tulip - [id number] [place]:Q[place] 1 [place] [facility] [place]: Inferior Vena Cava COOK : [employer] 04/12/2013 [id number] / / [id number] [place] Acetabular Liner +4 [id number] Id 52mm Od Implanted:Qty: 1 on 04/22/2010 [place] [facility] [place]: Hip 03/16/2015 1221-36-152 / / [id number] Stem [place] Por Tpr Stdoff S6 - [id number] Implanted:Qty: 1 on 04/22/2010 [place] [facility] [place]: Hip JNJ : [employer] 02/14/2020 [id number] / / [id number] Head Mtl Artic [place] 36mm Pl5 - [id number] Implanted:Qty: 1 on 04/22/2010 [place] [facility] [place]: Hip JNJ : [employer] 12/14/2014 [id number] / / [id number] Cup Fem Acet [place] 300 52mm - [id number] Implanted:Qty: 1 on 04/22/2010 [place] [facility] [place]: Hip JNJ : [employer] [id number] / / [id number] Screw Selftap 3.5x55 204.855 - [id number] Implanted:Qty: 1 on 04/22/2010 [place] [facility] [place]: Hip SYNTHES 204.855 / / Screw Canc 4mm 206.065 - [id number] Implanted:Qty: 1 on 04/22/2010 [place] [facility] Right: Hip SYNTHES 206.065 / / Screw Canc [place] 6.5x50mm - [id number] Implanted:Qty: 1 on 04/22/2010 [place] [facility] [place]: Hip JNJ : [employer] [id number] / / [id number] Screw Canc [place] 6.5x30mm - [id number] Implanted:Qty: 1 on 04/22/2010 [place] [facility] [place]: Hip JNJ : [employer] 02/14/2020 [id number] / / [id number] Screw Selft[place] 3.5x55 204.855 - [id number] Implanted:Qty: 2 on 04/22/2010 [place] [facility] [place]: Hip SYNTHES 204.855 / / Screw Canc 4mm 206.065 - [id number] Implanted:Qty: 1 on 04/22/2010 [place] [facility] Right: Hip SYNTHES 206.065 / / Screw Canc [place] 6.5x15mm - [id number] Implanted:Qty: 1 on 04/22/2010 [place] [facility] [place]: Hip JNJ : [employer] 02/14/2020 [id number] / / [id number] Lens 20.5 [id number] - [id number] 039 - [id number] Implanted:Qty: 1 on 10/14/2020 by Lester Livingston DO at OR [facility] Right: Eye DUANE : SURGICAL 2025 [id number] 5 / [id number] 039 / Lens 20.0 [id number] - [id number] 086 - [id number] Implanted:Qty: 1 on 12/09/2020 by Lester Livingston DO at OR [facility] Left: Eye DUANE : SURGICAL 07/13/2025 [id number] 0 / [id number] / documented as of this encounter Advance Directives * Full Code (Latest Code Status on File) Date Activated Date Inactivated Comments 04/22/2010 6:35 PM 04/27/2010 9:02 PM Question Answer Comments Discussion of Advance Directives occurred with: Not Discussed Care Teams Fraternity Adviser Relationship Specialty Start Date End Date Gabriele Dumas MD [address] [place] [address] [place] [phone] PCP - General Family Medicine 06/04/21 documented as of this encounter
--- OUTSIDE RECORDS SUMMARY | 2024-03-23 11:48 | External Medical Summary | Summary of Care ---
Author Name Unknown Organization [facility] Address [address] [place] [address] Phone [phone] Care Team Providers Care Sand Polisher Name Role Phone Gabriele Dumas MD Primary Care Provide r Reason for Visit * Reason Onset Date Comments Appointment 02/16/2024 Encounter Details Date Type Department Care Team (Late st Contact Info) Description 02/16/2024 Telephone Vascular Surg [facility] [address] [place] [address] Keven Maya CRNP [address] [place] [address] Appointment Allergies Active Allergy Reactions Criticality Noted Date Comments Influenza Vaccines 01/18/2013 Guilen-Mahaska syndrome documented as of this encounter (statuses [...] goal of less than 8.0% ([facility]) Take 1 Tablet by mouth in [...] Tablet Delayed ReleaseIndicatio ns:PAD (peripheral artery disease) ([facility]) Take 1 Tablet by mouth in [...] 04/28/2021 History of osteomyelitis 04/28/2021 History of Guillain-Mahaska sy ndrome due to 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 04/28/2021 [...] Telephone Encounter - Denia Waters LPN - 02/16/2024 10:59 AM EST Attempted to contact patient to see if he would like to see a different provider since Dr. Chan will not be here on 02/20/24 or if he would like to be rescheduled for 02/26/24. Denia Waters LPN 02/16/2024 11:00 AM * Telephone Encounter - Keven Maya CRNP [...] 3:00 PM EST Office Visit Vascular Surg [facility] [address] [place] [address] Manoj Chan MD [address] [place] [address] 02/23/2024 7:20 AM EST Office Visit [address] [phone] Abida Ren CRNP [address] [place] [address] [place] [address] 02/28/2024 8:10 AM EST Office Visit Pharmacy, [address] [place] [address] [place] [address] 05/13/2024 7:20 AM EDT Office Visit [address] [phone] Gabriele Dumas MD [address] [place] [address] [place] [address] 05/24/2024 11:00 AM EDT Office Visit Ophthalmology, [place] [address] [place] [address] Lester Livingston DO [address] [place] [address] 05/24/2024 1:00 PM EDT Hospital Encounter ENDO [facility], Endoscopy Room [facility] [address] [facility] [place] [phone] Dawn Hilario MD [address] [place] [address] 05/24/2024 1:00 PM EDT - 05/24/2024 1:30 PM EDT Surgery ENDO [facility], Endoscopy Room [facility] 132 [facility] [place] [phone] Dawn Hilario MD [address] [place] [address] COLONOSCOPY FLEXIBLE PROXIMAL DIAGNOSTIC 07/10/2024 9:30 AM EDT Office Visit Gastroenterology, [facility] 132 [facility] [place] [address] Lynnette Christian CRNP 132 [facility] [place] [address] Scheduled Procedures Name Priority Associated Diagnoses Date/Ti [...] this encounter Medical Devices Implanted Type Area Personnel Security Specialist Device Identifier Shelf Expiration Date Model / Serial / Lot Filter Navalign Femoral Tulip - [id number] [place]ed:Q[place] 1 [place] [facility] [place]: Inferior Vena Cava COOK : [employer] INC 04/12/2013 [id number] / / [id number] [place] Acetabular Liner +4 [id number] Id 52mm Od Implanted:Qty: 1 on 04/22/2010 [place] [facility] [place]: Hip 03/16/2015 1221-36-152 / / [id number] Stem [place] Por Tpr Stdoff S6 - [id number] Implanted:Qty: 1 on 04/22/2010 [place] [facility] [place]: Hip JNJ : [employer] 02/14/2020 [id number] / / [id number] Head Mtl Artic [place] 36mm Pl5 - [id number] Implanted:Qty: 1 on 04/22/2010 [place] [facility] [place]: Hip JNJ : [employer] 12/14/2014 [id number] / / [id number] Cup Fem Acet [place] 300 52mm - [id number] Implanted:Qty: 1 on 04/22/2010 [place] [facility] [place]: Hip JNJ : [employer] [id number] / / [id number] Screw [place]ft[place] 3.5x55 204.855 - [id number] Implanted:Qty: 1 on 04/22/2010 [place] [facility] [place]: Hip SYNTHES 204.855 / / Screw Canc 4mm 206.065 - [id number] Implanted:Qty: 1 on 04/22/2010 at [facility] Right: Hip SYNTHES 206.065 / / Screw Canc [place] 6.5x50mm - [id number] Implanted:Qty: 1 on 04/22/2010 [place] [facility] [place]: Hip JNJ : [employer] [id number] / / [id number] Screw Canc [place] 6.5x30mm - [id number] Implanted:Qty: 1 on 04/22/2010 [place] [facility] [place]: Hip JNJ : [employer] 02/14/2020 [id number] / / [id number] Screw Selftap 3.5x55 204.855 - [id number] Implanted:Qty: 2 on 04/22/2010 [place] [facility] [place]: Hip SYNTHES 204.855 / / Screw Canc 4mm 206.065 - [id number] Implanted:Qty: 1 on 04/22/2010 [place] [facility] [place]: Hip SYNTHES 206.065 / / Screw Canc [place] 6.5x15mm - [id number] Implanted:Qty: 1 on 04/22/2010 [place] [facility] [place]: Hip JNJ : [employer] 02/14/2020 [id number] / / [id number] Lens 20.5 [id number] - [id number] 039 - [id number] Implanted:Qty: 1 on 10/14/2020 by Lester Livingston DO at [facility] Right: Eye DUANE : SURGICAL 2025 [id number] / [id number] / Lens 20.0 [id number] - [id number] 086 - [id number] Implanted:Qty: 1 on 12/09/2020 by Lester Livingston DO at OR [facility] Left: Eye DUANE : SURGICAL 07/13/2025 [id number] 0 / [id number] / documented as of this encounter Advance Directives * Full Code (Latest Code Status on File) Date Activated Date Inactivated Comments 04/22/2010 6:35 PM 04/27/2010 9:02 PM Question Answer Comments Discussion of Advance Directives occurred with: Not Discussed Care Teams Sand Polisher Relationship Specialty Start Date End Date Gabriele Dumas MD [address] [place] [address] [place] [phone] PCP - General Family Medicine 06/04/21 documented as of this encounter
--- OUTSIDE RECORDS SUMMARY | 2024-03-23 11:48 | External Medical Summary | Summary of Care ---
Author Name Unknown Organization [facility] Address [address] [place] [address] Phone [phone] Care Team Providers Care Cath Lab Radiological Technologist Name Role Phone Tha Horne MD Primary Care Provide r Reason for Visit * Reason Onset Date Comments Medication Refill 01/17/2024 Encounter Details Date Type Department Care Team (Late st Contact Info) Description 01/17/2024 Refill Family [address] [place] [phone] Tha Horne MD [address] [place] [address] [place] [phone] Allergies Active Allergy Reactions Criticality Noted Date Comments Influenza Vaccines 01/18/2013 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 90 Tablet 5 04/06/19 23 Active OneTouch Delica Lancets 33G Use to test blood sugars once daily DxE11.9 100 Each 3 10/05/19 23 Active Glimepiride 4 MG Oral Tablet (Amaryl)Indicati ons:Type 2 diabetes mellitus with hemoglobin A1c goal of less than 8.0% ([facility]) Take 1 Tablet by mouth in the morning and 1 Tablet before bedtime. 180 Tablet 2 06/02/19 24 Active Novofine Pen Needle 32G X 6 MM (NOVOFINE 32G PEN NEEDLE)Indicatio ns:Type 2 diabetes mellitus with hemoglobin A1c goal of less than 8.0% ([facility]) Use it daily 100 Each 07/20/19 24 Active Lisinopril 40 MG Oral TabletIndication s:HTN, goal below 140/90 TAKE 1 TABLET BY MOUTH IN THE MORNING 90 Tablet 2 08/08/19 24 Active OneTouch Verio In Vitro Strip (Glucose Blood)Indication s:Type 2 diabetes mellitus with hemoglobin A1c goal of less than 8.0% ([facility]) Use to test blood sugars once daily DxE11.9 100 Strip 3 11/06/19 24 Active Aspirin 81 MG Oral Tablet Delayed ReleaseIndicatio ns:PAD (peripheral artery disease) ([facility]) Take 1 Tablet by mouth in the morning. 100 Tablet 3 11/08/19 24 Active metFORMIN HCl ER 500 MG Oral Tablet Extended Release 24 Hour (Glucophage XR)Indications:T ype 2 diabetes mellitus with hemoglobin A1c goal of less than 8.0% ([facility]) TAKE 4 TABLETS BY MOUTH ONCE DAILY IN THE MORNING 360 Tablet 1 12/04/19 24 Active Liraglutide 18 MG/3ML Subcutaneous Solution Pen-injector (Victoza)Indicat ions:Type 2 diabetes mellitus with hemoglobin A1c goal of less than 8.0% ([facility]) Inject 1.8 mg under the skin in the morning. 9 mL 5 12/04/19 24 Active amLODIPine Besylate 5 MG Oral Tablet (Norvasc)Indicat ions:HTN, goal below 140/90 Take 1 Tablet by mouth in the morning. 90 Tablet 1 12/18/19 24 Active Dapagliflozin Propanediol 10 MG Oral Tablet (Farxiga)Indicat ions:Type 2 diabetes mellitus with hemoglobin A1c goal of less than 8.0% ([facility]) Take 1 Tablet by mouth in [...] 2 at bedtime 120 Tablet 12 01/02/20 Active Dalbavancin HCl in D5W infusion Administer intravenously once a week. 01/03/20 24 Active Azithromycin 250 MG Oral Tablet (Zithromax Z-Ochoa) Take two tablets by mouth on first day, then 1 tablet daily until gone 6 Tablet 01/17/20 Active Clotrimazole-Bet amethasone 1-0.05 % External Cream (Lotrisone) clotrimazole-beta methasone 1 %-0.05 % topical cream 12/25/19 24 Active Silverseal Hydrogel Dressing 2"X3" External Pad Apply topically to affected area. Active Azithromycin 250 MG Oral Tablet (Zithromax Z-Ochoa) Take two tablets by mouth on first day, then 1 tablet daily until gone 6 Tablet 01/10/20 24 Discontin ued(Refil l) documented as of this encounter (statuses as of 01/17/2024) Active Problems Problem Noted Date Diagnosed Date History of pancreatitis 11/18/2022 Chronic bilateral low back pain 05/18/2022 Acquired absence of other left toe(s) 03/16/2022 Mild nonproliferative diabet ic retinopathy of both eyes without macular edema associated with type 2 diabetes mellitus 03/16/2022 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 03/16/2022 Amputation of toe of left foot 04/28/2021 History of osteomyelitis 04/28/2021 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 04/28/2021 [...] as of this encounter (statuses as of 01/17/2024) Resolved Problems Problem Noted Date Diagnosed Date [...] as of this encounter (statuses as of 01/17/2024) Immunizations No known immunizationsdocumented as of this [...] encounter Miscellaneous Notes * Telephone Encounter - Tha Horne MD - 01/17/2024 1:05 PM EST Signed Prescriptions: Disp Refills Azithromycin 250 MG Oral Tablet (Zithromax*6 Tabl*0 Sig: Take two tablets by mouth on first day, then 1 tablet daily until gone Authorizing Provider: THA HORNE * Telephone Encounter - Christiane Tolbert, foundation digger - 01/17/2024 12:43 PM EST Did you pend patient's preferred pharmacy and medication before forwarding?yes Pharmacy: [facility] [address] [place] [address] Pending Prescriptions: Disp Refills Azithromycin 250 MG Oral Tablet (Zithroma*6 Tabl*0 Sig: Take two tablets by mouth on first day, then 1 tablet daily until gone Last Visit: 01/04/2024 (in office), Visit date not found (telemedicine) Next Visit: 02/23/2024 If no future appointments scheduled, and last appointment is greater than a year ago, please schedule patient for a follow-up appointment Last date the medication was ordered: 01/10/24 Is this request for a controlled substance?No Urine Drug Screen:No results found for this or any previous visit. Patient Phone Numbers Labs: Lab Results Component Value Date/Time CREAT 0.68 (A) 01/02/2024 12:00 AM CREAT 0.6 02/20/2020 10:48 AM POTASSIUM 4.1 01/02/2024 12:00 AM POTASSIUM 4.6 02/20/2020 10:48 AM TSH 2.080 03/01/2021 12:00 AM TSH 8.20 (H) 09/17/2015 08:08 AM LDL 36 03/17/2023 09:51 AM LDL 86 03/01/2021 12:00 AM LDL 109 02/20/2020 10:48 AM LDL 159 (H) 09/17/2015 08:08 AM LDLCALC 82.20 03/01/2021 12:00 AM ALT 24 09/04/2023 10:46 AM ALT 17 09/17/2015 08:08 AM HGBA1C 8.1 (H) 12/18/2023 10:44 AM HGBA1C 7.3 (A) 03/01/2021 12:00 AM HGBA1C 7.9 (H) 02/20/2020 10:48 AM documented in this encounter Plan of Treatment Upcoming Encounters Date Type Department Care Team (Late st Contact Info) Description 01/30/2024 8:00 AM EST Office Visit Pharmacy, [address] [place] [address] [place] [address] 02/23/2024 7:20 AM EST Office Visit Family Medicine [address] [place] [phone] Abida Ren CRNP [address] [place] [address] [place] [address] 03/20/2024 12:10 PM EST Office Visit Vascular Surgery, [facility] [address] [facility] [place] [address] Manoj Chan MD [address] [facility] [address] 05/13/2024 7:20 AM EDT Office Visit Family Medicine [address] [place] [phone] Tha Horne MD [address] [place] [address] [place] [address] 05/24/2024 11:00 AM EDT Office Visit Ophthalmology, [address] [address] Lester Livingston DO [address] [place] [address] 05/24/2024 1:00 PM EDT Hospital Encounter ENDO [facility], Endoscopy Room [facility] [address] [facility] [phone] Dawn Hilario MD [address] [address] 05/24/2024 1:00 PM EDT - 05/24/2024 1:30 PM EDT Surgery ENDO [facility], Endoscopy Room [facility] [address] [place] [phone] Dawn Hilario MD [address] [place] [address] COLONOSCOPY FLEXIBLE PROXIMAL DIAGNOSTIC 07/10/2024 9:30 AM EDT Office Visit Gastroenterology, [facility] 132 [facility] [place] [address] Lynnette Christian CRNP 132 [facility] [place] [address] Scheduled Procedures Name Priority Associated Diagnoses Date/Ti [...] 10/25/2023, Additional history exists Cologuard 06/16/2025 06/16/2022, 05/15, [...] this encounter Medical Devices Implanted Type Area Hand Cementer Device Identifier Shelf Expiration Date Model / Serial / Lot Filter Navalign Femoral Tulip - [id number] [place] [facility] [place] Inferior Vena Cava COOK : [employer] 04/12/2013 [id number] / / [id number] [place] Acetabular Liner +4 [id number] 52mm Od Implanted:Qty: 1 on [place]22/2010 [place] [facility] [place]: Hip 03/16/2015 [id number] / / [id number] Stem [place] Por Tpr Stdoff S6 - [id number] Implanted:Qty: 1 on 04[place]22/2010 [place] [facility] [place]: Hip JNJ : [employer] 02/14/2020 [id number] / / [id number] Head Mtl Artic Edwardo 36mm Pl5 - [id number] Implanted:Qty: 1 on [place]22[place]2010 [place] [facility] [place]: Hip JNJ : [employer] 12/14/2014 [id number] / / [id number] Fem Acet [place] 300 52mm - [id number] Implanted:Qty: 1 on 04/22/2010 [place] [facility] [place]: Hip JNJ : [employer] [id number] / / [id number] Screw Selft[place] 3.5x55 204.855 - [id number] Implanted:Qty: 1 on 04/22/2010 [place] [facility] [place]: Hip SYNTHES 204.855 / / Screw Canc 4mm 206.065 - [id number] Implanted:Qty: 1 on 04/22/2010 [place] [facility] [place]: Hip SYNTHES 206.065 / / Screw Canc [place] 6.5x50mm - [id number] Implanted:Qty: 1 on 04/22/2010 [place] [facility] [place]: Hip JNJ : [employer] [id number] / / [id number] Screw Canc [place] 6.5x30mm - [id number] Implanted:Qty: 1 on 04/22/2010 [place] [facility] [place]: Hip JNJ : [employer] 02/14/2020 [id number] / / [id number] Screw [place] 3.5x55 204.855 - [id number] Implanted:Qty: 2 on 04/22/2010 [place] [facility] [place]: Hip SYNTHES 204.855 / / Screw Canc 4mm 206.065 - [id number] Implanted:Qty: 1 on 04/22/2010 [place] [facility] [place]: Hip SYNTHES 206.065 / / Screw Canc [place] 6.5x15mm - [id number] Implanted:Qty: 1 on 04/22/2010 [place] [facility] [place]: Hip JNJ : [employer] 02/14/2020 [id number] / / [id number] Lens 20.5 [id number] - [id number] 039 - [id number] Implanted:Qty: 1 on 10/14/2020 by Lester Livingston DO at OR [facility] Right: Eye DUANE : SURGICAL 2025 [id number] / [id number] / Lens 20.0 [id number] - [id number] 086 - [id number] Implanted:Qty: 1 on 12/09/2020 by Lester Livingston DO at OR [facility] Left: Eye DUANE : SURGICAL 07/13/2025 [id number] / [id number] / documented as of this encounter Advance Directives * Full Code (Latest Code Status on File) Date Activated Date Inactivated Comments 04/22/2010 6:35 PM 04/27/2010 9:02 PM Question Answer Comments Discussion of Advance Directives occurred with: Not Discussed Care Teams Cath Lab Radiological Technologist Relationship Specialty Start Date End Date Tha Horne MD [address] [place] [address] [place] [phone] PCP - General Family Medicine 06/04/21 documented as of this encounter
--- OUTSIDE RECORDS SUMMARY | 2024-03-23 11:48 | External Medical Summary | Summary of Care ---
Author Name Unknown Organization [facility] Address [address] [place] [address] Phone [phone] Care Team Providers Care Emergency Dispatcher Name Role Phone Gabriele Dumas MD Primary Care Provide r Reason for Visit * Reason Onset Date Comments Appointment 02/16/2024 Encounter Details Date Type Department Care Team (Late st Contact Info) Description 02/16/2024 Telephone Vascular Surg [facility] [address] [place] [address] Keven Maya CRNP [address] [place] [address] Appointment Allergies Active Allergy Reactions Criticality Noted Date Comments Influenza Vaccines 01/18/2013 Guilen-[place] syndrome documented as of this encounter (statuses [...] A1c goal of less than 8.0% ([facility]) Take 1 Tablet by mouth in [...] Delayed ReleaseIndicatio ns:PAD (peripheral artery disease) ([facility]) Take 1 Tablet by mouth in [...] 04/28/2021 History of osteomyelitis 04/28/2021 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 Denia Waters LPN 02/16/2024 2:26 PM * Telephone Encounter - Denia Waters [...] reschedule for 02/26/24 if he prefersDr. Chan. ThanksKeven CRNP 02/16/2024 10:01 AM documented in this encounter Plan of Treatment Upcoming Encounters Date Type Department Care Team (Late st Contact Info) Description 02/23/2024 7:20 AM EST Office Visit Family Medicine [address] [place] [address] [address] [place] [address] 02/26/2024 9:00 AM EST Office Visit Vascular Surg [facility] [address] [place] [address] Manoj Chan MD [address] [place] [address] 02/28/2024 8:10 AM EST Office Visit Pharmacy, [address] [place] [address] [place] [address] 05/13/2024 7:20 AM EDT Office Visit [address] [place] [phone] Gabriele Dumas MD [address] [place] [address] [place] [address] 05/24/2024 11:00 AM EDT Office Visit Ophthalmology, [address] [place] [address] Lester Livingston DO [address] [place] [address] 05/24/2024 1:00 PM EDT Hospital Encounter ENDO [facility], Endoscopy Room [facility] [address] [place] [phone] Dawn Hilario MD [address] [place] [address] 05/24/2024 1:00 PM EDT - 05/24/2024 1:30 PM EDT Surgery ENDO [facility], Endoscopy Room [facility] [address] [place] [phone] Dawn Hilario MD [address] [place] [address] COLONOSCOPY FLEXIBLE PROXIMAL DIAGNOSTIC 07/10/2024 9:30 AM EDT Office Visit Gastroenterology, [facility] [address] [place] [address] Lynnette Christian CRNP [address] [place] [address] Scheduled Procedures Name Priority Associated Diagnoses Date/Ti [...] this encounter Medical Devices Implanted Type Area Parcel Wrapper Device Identifier Shelf Expiration Date Model / Serial / Lot Filter Navalign Femoral Tulip - [id number] Implanted:Qty: 1 on 04/21/2010 [place] [facility] [place]: Inferior Vena Cava COOK : [employer] 04/12/2013 [id number] / / [id number] [place] Acetabular Liner +4 [id number] Id 52mm Od Implanted:Qty: 1 on 04/22/2010 [place] [facility] [place] Right: Hip 03/16/2015 1221-36-152 / / [id number] Stem [place] Por Tpr Stdoff S6 - [id number] Implanted:Qty: 1 on 04/22/2010 [place] [facility] [place] Right: Hip JNJ : [employer] 02/14/2020 [id number] / / [id number] Head Mtl Artic [place] 36mm Pl5 - [id number] Implanted:Qty: 1 on 04/22/2010 [place] [facility] [place]: Hip JNJ : [employer] 12/14/2014 [id number] / / [id number] Fem Acet [place] 300 52mm - [id number] Implanted:Qty: 1 on 04/22/2010 [place] [facility] [place]: Hip JNJ : [employer] [id number] / / [id number] Screw Selftap 3.5x55 204.855 - [id number] Implanted:Qty: 1 on 04/22/2010 [place] [facility] [place] Right: Hip SYNTHES 204.855 / / Screw Canc 4mm 206.065 - [id number] Implanted:Qty: 1 on 04/22/2010 at [place] [facility] [place] Right: Hip SYNTHES 206.065 / / Screw Canc [place] 6.5x50mm - [id number] Implanted:Qty: 1 on 04/22/2010 [place] [facility] [place]: Hip JNJ : [employer] [id number] / / [id number] Screw Canc [place] 6.5x30mm - [id number] Implanted:Qty: 1 on 04/22/2010 [place] [facility] [place]: Hip JNJ : [employer] 02/14/2020 [id number] / / [id number] Screw Selftap 3.5x55 204.855 - [id number] Implanted:Qty: 2 on 04/22/2010 at [place] [facility] [place] Right: Hip SYNTHES 204.855 / / Screw Canc 4mm 206.065 - [id number] Implanted:Qty: 1 on 04/22/2010 at [place] [facility] [place] Right: Hip SYNTHES 206.065 / / Screw Canc [place] 6.5x15mm - [id number] Implanted:Qty: 1 on 04/22/2010 [place] [facility] [place] Right: Hip JNJ : [employer] 02/14/2020 [id number] / / [id number] Lens 20.5 [id number] - [id number] 039 - [id number] Implanted:Qty: 1 on 10/14/2020 by Lester Livingston DO at OR [facility] Right: Eye DUANE : SURGICAL 2025 [id number] / [id number] / Lens 20.0 [id number] - [id number] 086 - [id number] Implanted:Qty: 1 on 12/09/2020 by Lester Livingston DO at [place] [facility] Left: Eye DUANE : SURGICAL 07/13/2025 [id number] / [id number] / documented as of this encounter Advance Directives * Full Code (Latest Code Status on File) Date Activated Date Inactivated Comments 04/22/2010 6:35 PM 04/27/2010 9:02 PM Question Answer Comments Discussion of Advance Directives occurred with: Not Discussed Care Teams Emergency Dispatcher Relationship Specialty Start Date End Date Gabriele Dumas MD [address] [place] [address] [place] [address] PCP - General Family Medicine 06/04/21 documented as of this encounter
--- OUTSIDE RECORDS SUMMARY | 2024-03-23 11:48 | External Medical Summary | Summary of Care ---
Author Name Unknown Organization [facility] Address [address] [place] [address] Phone [phone] Care Team Providers Care Bulk Mail Clerk Name Role Phone Gabriele Dumas MD Primary Care Provide r Reason for Visit * Reason Onset Date Comments Scheduling 02/05/2024 TRIAGE 02/05/2024 Urgent Encounter Details Date Type Department Care Team (Late st Contact Info) Description 02/05/2024 Telephone Vascular Surgery, [facility] [address] [facility] [place] [address] Manoj Chan MD [address] [place] [address] Scheduling; TRIAGE (Urgent ) Allergies Active Allergy Reactions Criticality Noted Date Comments Influenza Vaccines 01/18/2013 Guilen-[place] syndrome documented as of this encounter (statuses as of 02/05/2024) Medications Atorvastatin Calcium 40 MG Oral Tablet [...] as of this encounter (statuses as of 02/05/2024) Active Problems Problem Noted Date Diagnosed Date History of pancreatitis 11/18/2022 Chronic bilateral low back pain 05/18/2022 Acquired absence of other left toe(s) 03/16/2022 Mild nonproliferative diabet ic retinopathy of both eyes without macular edema associated with type 2 diabetes mellitus 03/16/2022 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 03/16/2022 Amputation of toe of left foot 04/28/2021 History of osteomyelitis 04/28/2021 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 (Household - for [...] Telephone Encounter - Denia Waters LPN - 02/05/2024 10:22 AM EST I called Dr. Carranza office at [phone] and they are going to fax the last office note over. Pt is scheduled 02/06/24 on Keven's scheduled. Denia Waters LPN 02/05/2024 10:23 AM * Telephone Encounter - Gwendolyn Loyd OSA - 02/05/2024 9:28 AM EST Known patient of Dr Chan calling to get urgent appointment [facility] Ike Seth for the possibility for needing amputation. Patient is scheduled for [facility] at [facility] tomorrow, no opening with Dr Chan until 02/19/23. Please ad vise on dtl if AP appointment is not appropriate for patients needs. documented in this encounter Plan of Treatment Upcoming Encounters Date Type Department Care Team (Late st Contact Info) Description 02/06/2024 9:00 AM EST [facility] [address] [place] [address] [facility] [facility] [place] [address] 02/23/2024 7:20 AM EST Office Visit Family Medicine [address] [phone] Abida Ren CRNP [address] [place] [address] [place] [address] 02/28/2024 8:10 AM EST Office Visit Pharmacy, [address] [place] [address] [place] [address] 05/13/2024 7:20 AM EDT Office Visit Family Medicine [address] [place] [phone] Gabriele Dumas MD [address] [place] [address] [place] [address] 05/24/2024 11:00 AM EDT Office Visit OphthalmologyAri 21 [place] [address] Lester Livingston, DO [address] [address] [place] [address] 05/24/2024 1:00 PM EDT Hospital Encounter ENDO [facility], Endoscopy Room [facility] [address] [place] [phone] Dawn Hilario MD [address] [address] 05/24/2024 1:00 PM EDT - 05/24/2024 1:30 PM EDT Surgery ENDO [facility], Endoscopy Room [facility] [address] [place] [phone] Dawn Hilario MD [address] [place] [address] COLONOSCOPY FLEXIBLE PROXIMAL DIAGNOSTIC 07/10/2024 9:30 AM EDT Office Visit Gastroenterology, [facility] [address] [place] [address] Lynnette Christian CRNP [address] [facility] [address] Scheduled Procedures Name Priority Associated Diagnoses Date/Ti me COLONOSCOPY FLEXIBLE PROXIMAL DIAGNOSTIC Diarrhea, unspecified type 05/24/2024 1:00 PM EDT Health Maintenance Due Date Last Done Comments DTap/Tdap Vaccines (1 - Tdap) 1969 Pneumococcal Vaccine: 65+ Years (1 of 2 - PCV) 1968 [...] this encounter Medical Devices Implanted Type Area Cone Winder Device Identifier Shelf Expiration Date Model / Serial / Lot Filter Navalign Femoral Tulip - [id number] Implanted:Qty: 1 on 04/21/2010 at [place] [facility] Right: Inferior Vena Cava COOK : [employer] 04/12/2013 [id number] / / [id number] [place] Acetabular Liner +4 [id number] 52mm Od Implanted:Qty: 1 on 04/22/2010 at OR [facility] Right: Hip 03/16/2015 1221-36-152 / / [id number] Stem [place] Por Tpr Stdoff S6 - [id number] Implanted:Qty: 1 on 04/22/2010 at [place] [facility] Right: Hip JNJ : [employer] 02/14/2020 [id number] / / [id number] Head Mtl Artic Edwardo 36mm Pl5 - [id number] Implanted:Qty: 1 on 04/22/2010 at [place] [facility] Right: Hip JNJ : [employer] OR[employer] 12/14/2014 [id number] / / [id number] Fem Acet [place] 300 52mm - [id number] Implanted:Qty: 1 on 04/22/2010 at [place] [facility] Right: Hip JNJ : [employer] [id number] / / [id number] Screw Selftap 3.5x55 204.855 - [id number] Implanted:Qty: 1 on 04/22/2010 at OR [facility] Right: Hip SYNTHES 204.855 / / Screw Canc 4mm 206.065 - [id number] Implanted:Qty: 1 on 04/22/2010 at OR [facility] Right: Hip SYNTHES 206.065 / / Screw Canc [place] 6.5x50mm - [id number] Implanted:Qty: 1 on 04/22/2010 at OR [facility] Right: Hip JNJ : [employer] OR[employer] [id number] / / [id number] Screw Canc [place] 6.5x30mm - [id number] Implanted:Qty: 1 on 04/22/2010 at OR [facility] Right: Hip JNJ : [employer] 02/14/2020 [id number] / / [id number] Screw Selft[place] 3.5x55 204.855 - [id number] Implanted:Qty: 2 on 04/22/2010 at OR [facility] Right: Hip SYNTHES 204.855 / / Screw Canc 4mm 206.065 - [id number] Implanted:Qty: 1 on 04/22/2010 at OR [facility] Right: Hip SYNTHES 206.065 / / Screw Canc [place] 6.5x15mm - [id number] Implanted:Qty: 1 on 04/22/2010 at OR [facility] Right: Hip JNJ : [employer] 02/14/2020 [id number] / / [id number] Lens 20.5 [id number] - [id number] - [id number] Implanted:Qty: 1 on 10/14/2020 by Lester Livingston DO at OR [facility] Right: Eye DUANE : SURGICAL 2025 [id number] / [id number] / Lens 20.0 [id number] - [id number] 086 - [id number] Implanted:Qty: 1 on 12/09/2020 by Lester Livingston DO at OR [facility] Left: Eye DUANE : SURGICAL 07/13/2025 [id number] / [id number] / documented as of this encounter Advance Directives * Full Code (Latest Code Status on File) Date Activated Date Inactivated Comments 04/22/2010 6:35 PM 04/27/2010 9:02 PM Question Answer Comments Discussion of Advance Directives occurred with: Not Discussed Care Teams Bulk Mail Clerk Relationship Specialty Start Date End Date Gabriele Dumas MD [address] [place] [address] [place] [address] PCP - General Family Medicine 06/04/21 documented as of this encounter
--- OUTSIDE RECORDS SUMMARY | 2024-03-23 11:48 | External Medical Summary | Summary of Care ---
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 documented as of this encounter (statuses as of 01/29/2024) Medications Atorvastatin Calcium 40 MG Oral Tablet [...] as of this encounter (statuses as of 01/29/2024) Active Problems Problem Noted Date Diagnosed Date History of pancreatitis 11/18/2022 Chronic bilateral low back pain 05/18/2022 Acquired absence of other left toe(s) 03/16/2022 Mild nonproliferative diabet ic retinopathy of both eyes without macular edema associated with type 2 diabetes mellitus 03/16/2022 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 03/16/2022 Amputation of toe of left foot 04/28/2021 History of osteomyelitis 04/28/2021 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 (Household - for [...] encounter Miscellaneous Notes * Telephone Encounter - Miryam Salinas CPhT - 01/29/2024 8:31 AM EST Spoke w patient Patient scheduled and aware Thank You, Miryam Salinas CPhT Gutter Mouth Cutter II [facility] 01/29/2024,8:31 AM * Telephone Encounter - Tawnya Winn OSA - 01/28/2024 7:58 AM EST Pt cx his mtm appt and is asking to reschedule for Feb 27 early like 7am if possible please give him a call Ty documented in this encounter Plan of Treatment Upcoming Encounters Date Type Department Care Team (Late st Contact Info) Description 02/23/2024 7:20 AM EST Office Visit Family [address] [place] [phone] Abida Ren CRNP [address] [place] [address] [place] [address] 02/28/2024 8:10 AM EST Office Visit Pharmacy, [address] [place] [address] [place] [address] 03/20/2024 12:10 PM EST Office Visit Vascular Surgery, [facility] [address] [facility] [place] [address] Manoj Chan MD [address] [facility] [place] [address] 05/13/2024 7:20 AM EDT Office Visit [address] [place] [phone] Gabriele Dumas MD [address] [place] [address] [place] [address] 05/24/2024 11:00 AM EDT Office Visit Ophthalmology, [place] [address] [place] [address] Lester Livingston DO [address] [place] [address] 05/24/2024 1:00 PM EDT Hospital Encounter ENDO [facility], Endoscopy Room [facility] [address] [facility] [place] [phone] Dawn Hilario MD [address] [facility] [place] [address] 05/24/2024 1:00 PM EDT - 05/24/2024 1:30 PM EDT Surgery ENDO [facility], Endoscopy Room [facility] [address] [place] [phone] Dawn Hilario MD [address] [place] [address] COLONOSCOPY FLEXIBLE PROXIMAL DIAGNOSTIC 07/10/2024 9:30 AM EDT Office Visit Gastroenterology, [facility] [address] [place] [address] Lynnette Christian CRNP [address] [place] [address] Scheduled Procedures Name Priority Associated Diagnoses Date/Ti [...] Depression Screening 12/17/2024 12/18/2023 GFR 01/01/2025 01/02/2024, 1105/2023, 10/25/2023, Additional history exists Cologuard 06/16/2025 06/16/2022, [...] this encounter Medical Devices Implanted Type Area Garment Manufacturer Device Identifier Shelf Expiration Date Model / Serial / Lot Filter Navalign Femoral Tulip - [id number] Implanted:Qty: 1 on 04/21/2010 at OR [facility] Right: Inferior Vena Cava COOK : [employer] 04/12/2013 [id number] / / [id number] [place] Acetabular Liner +4 [id number] 52mm Od Implanted:Qty: 1 on 04/22/2010 at OR [facility] Right: Hip 03/16/2015 1221-36-152 / / [id number] Stem [place] Por Tpr Stdoff S6 - [id number] Implanted:Qty: 1 on 04/22/2010 at OR [facility] Right: Hip JNJ : [employer] 02/14/2020 [id number] / / [id number] Head Mtl Artic Edward[place] 36mm Pl5 - [id number] Implanted:Qty: 1 on 04/22/2010 at OR [facility] Right: Hip JNJ : [employer] 12/14/2014 [id number] / / [id number] Fem Acet [place] 300 52mm - [id number] Implanted:Qty: 1 on 04/22/2010 at OR [facility] Right: Hip JNJ : [employer] [id number] / / [id number] Screw Selft[place] 3.5x55 204.855 - [id number] Implanted:Qty: 1 on 04/22/2010 at [facility] Right: Hip SYNTHES 204.855 / / Screw Canc 4mm 206.065 - [id number] Implanted:Qty: 1 on 04/22/2010 at OR [facility] Right: Hip SYNTHES 206.065 / / Screw Canc [place] 6.5x50mm - [id number] Implanted:Qty: 1 on 04/22/2010 at OR [facility] Right: Hip JNJ : [employer] [id number] / / [id number] Screw Canc [place] 6.5x30mm - [id number] Implanted:Qty: 1 on 04/22/2010 at OR [facility] Right: Hip JNJ : [employer] 02/14/2020 [id number] / / [id number] Screw [place]ft[place] 3.5x55 204.855 - [id number] Implanted:Qty: 2 on 04/22/2010 at OR [facility] Right: Hip SYNTHES 204.855 / / Screw Canc 4mm 206.065 - [id number] Implanted:Qty: 1 on 04/22/2010 at OR [facility] Right: Hip SYNTHES 206.065 / / Screw Canc [place] 6.5x15mm - [id number] Implanted:Qty: 1 on 04/22/2010 at OR [facility] Right: Hip JNJ : [employer] 02/14/2020 [id number] / / [id number] Lens 20.5 [id number] - [id number] - [id number] Implanted:Qty: 1 on 10/14/2020 by Lester Livingston DO at OR [facility] Right: Eye DUANE : SURGICAL 2025 [id number] / [id number] / Lens 20.0 [id number] - [id number] 086 - [id number] Implanted:Qty: 1 on 12/09/2020 by Lester Livingston DO at OR [facility] Left: Eye DUANE : SURGICAL 07/13/2025 [id number] 0 / [id number] / documented as of this encounter Advance Directives * Full Code (Latest Code Status on File) Date Activated Date Inactivated Comments 04/22/2010 6:35 PM 04/27/2010 9:02 PM Question Answer Comments Discussion of Advance Directives occurred with: Not Discussed Care Teams Gear Hobber Relationship Specialty Start Date End Date Gabriele Dumas MD [address] [place] [address] [place] [address] PCP - General Family Medicine 06/04/21 documented as of this encounter
--- OUTSIDE RECORDS SUMMARY | 2024-03-23 11:48 | External Medical Summary | Summary of Care ---
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 100 Tablet 3 4 Active metFORMIN HCl ER 500 MG Oral Tablet Extended Release 24 Hour (Glucophage XR)Indications:Ty pe 2 diabetes mellitus with hemoglobin A1c goal of less than 8.0% ([facility]) TAKE 4 TABLETS BY MOUTH ONCE DAILY IN THE MORNING 360 Tablet 1 4 Active Liraglutide 18 MG/3ML Subcutaneous Solution Pen-injector (Victoza)Indicati ons:Type 2 diabetes mellitus with hemoglobin A1c goal of less than 8.0% ([facility]) Inject 1.8 mg under the skin in the morning. 9 mL 5 4 Active amLODIPine Besylate 5 MG Oral Tablet (Norvasc)Indicati ons:HTN, goal below 140/90 Take 1 Tablet by mouth in the morning. 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 04/28/2021 [...] 9:00 AM EST Office Visit Vascular Surg [facility] [address] [address] Keven Maya [place] [address] 02/23/2024 7:20 AM EST Office Visit Family Medicine [address] [place] [phone] Abida Ren [address] [place] [address] 02/28/2024 8:10 AM EST Office Visit Pharmacy, [address] [place] [address] [place] [address] 05/13/2024 7:20 AM EDT Office Visit Family Medicine [address] [place] [phone] Gabriele Dumas MD [address] [place] [address] [place] [address] 05/24/2024 11:00 AM EDT Office Visit Ophthalmology, [place] [address] [place] [address] Lester Livingston DO [address] [place] [address] 05/24/2024 1:00 PM EDT Hospital Encounter ENDO [facility], Endoscopy Room [facility] [address] [place] [phone] Dawn Hilario MD [address] [place] [address] 05/24/2024 1:00 PM EDT - 05/24/2024 1:30 PM EDT Surgery ENDO [facility], Endoscopy Room [facility] [address] [place] [phone] Dawn Hilario MD [address] [place] [address] COLONOSCOPY FLEXIBLE PROXIMAL DIAGNOSTIC 07/10/2024 9:30 AM EDT Office Visit Gastroenterology, [facility] [address] [place] [address] Lynnette Christian CRNP [address] [place] [address] Scheduled Procedures Name Priority Associated Diagnoses Date/Ti [...] exists Depression Screening 12/17/2024 12/18/2023 GFR 01/01/2025 02/05/2024, 12/14, 12/18/2023, Additional history exists Cologuard 06/16/2025 06/16/2022, 05/15, 06/07/2022 Colorectal Cancer Screening 06/16/2025 Lipid Panel 03/17/2028 03/17/2023, 02/0 02/2022, 03/01/2021, Additional history exists HPV (Gardasil) [...] this encounter Medical Devices Implanted Type Area Waterproofing Machine Operator Device Identifier Shelf Expiration Date Model / Serial / Lot Filter Navalign Femoral Tulip - [id number] Implanted:Qty: 1 on 04/21/[place] [facility] [place] [facility] [place]: Inferior Vena Cava COOK : UROLOG[employer] INC 04/12/2013 [id number] / / [id number] [place] Acetabular Liner +4 [id number] 52mm Od Implanted:Qty: 1 on 04/22/2010 at [facility] Right: Hip 03/16/2015 1221-36-152 / / [id number] Stem [place] Por Tpr Stdoff S6 - [id number] Implanted:Qty: 1 on 04/22/2010 [place] [facility] [place] Right: Hip JNJ : [employer] 02/14/2020 [id number] / / [id number] Head Mtl Artic Edward[place] 36mm Pl5 - [id number] Implanted:Qty: 1 on 04/22/2010 at [facility] Right: Hip JNJ : [employer] 12/14/2014 [id number] / / [id number] Fem Acet [place] 300 52mm - [id number] Implanted:Qty: 1 on 04/22/2010 [place] [facility] [place] [place]: Hip JNJ : [employer] [id number] / / [id number] Screw Selftap 3.5x55 204.855 - [id number] Implanted:Qty: 1 on 04/22/2010 [place] [facility] [place] [place]: Hip SYNTHES 204.855 / / Screw Canc 4mm 206.065 - [id number] Implanted:Qty: 1 on 04/22/2010 at [facility] Right: Hip SYNTHES 206.065 / / Screw Canc [place] 6.5x50mm - [id number] Implanted:Qty: 1 on 04/22/2010 [place] [facility] [place] Right: Hip JNJ : [employer] [id number] / / [id number] Screw Canc [place] 6.5x30mm - [id number] Implanted:Qty: 1 on 04/22/2010 [place] [facility] [place] Right: Hip JNJ : [employer] 02/14/2020 [id number] / / [id number] Screw [place]ft[place] 3.5x55 204.855 - [id number] Implanted:Qty: 2 on 04/22/2010 at [facility] Right: Hip SYNTHES 204.855 / / Screw Canc 4mm 206.065 - [id number] Implanted:Qty: 1 on 04/22/2010 [place] [facility] [place] [facility] [place]: Hip SYNTHES 206.065 / / Screw Canc [place] 6.5x15mm - [id number] Implanted:Qty: 1 on 04/22/2010 [place] [facility] [place] [facility] [place]: Hip JNJ : [employer] 02/14/2020 [id number] / / [id number] Lens 20.5 [id number] - [id number] - [id number] Implanted:Qty: 1 on 10/14/2020 by Lester Livingston, at OR [facility] Right: Eye DUANE : SURGICAL 2025 [id number] / [id number] / Lens 20.0 [id number] - [id number] 086 - [id number] Implanted:Qty: 1 on 12/09/2020 by Lester Livingston, at OR [facility] Left: Eye DUANE : SURGICAL 07/13/2025 [id number] 0 / [id number] / documented as of this encounter Procedures Procedure Name Priority Date/Time Associated Diagnosis Comments CHEMISTRY-OUTSIDE Routine 02/05/2024 documented in this encounter Results * (ABNORMAL) CHEMISTRY-OUTSIDE (02/05/2024) Not all results display below - see scan for full detail OUTSIDE LAB (SEE SCANNED REPORT) Comment:SCAN INCL: BMP,CBC, SED RATE CREATININE 0.86 0.70 - 1.30 MG/DL OUTSIDE LAB (SEE SCANNED REPORT) EGFR >90 OUTSIDE LA B (SEE SCANNED REPORT) POTASSIUM 4.2 3.5 - 5.1 MMOL/L OUTSIDE LAB (SEE SCANNED REPORT) GLUCOSE 256(A) 70 - 110 MG/DL OUTSIDE LAB (SEE SCANNED REPORT) HOURS FASTING OUTSID E LAB (SEE SCANNED REPORT) TRIGLYCERIDES-OUT SIDE LAB OUTSIDE LAB (SEE SCANNED REPORT) CHOLESTEROL-OUTSI DE LAB OUTSIDE LAB (SEE SCANNED REPORT) HDL-OUTSIDE LAB OUTS KEE LAB (SEE SCANNED REPORT) CHOL/HDL RATIO-OUTSIDE LAB OUTSIDE LA B (SEE SCANNED REPORT) LDL (CALCULATED)-OUTS KEE LAB OUTSIDE LAB (SEE SCANNED REPORT) LDL (DIRECT MEASURE)-OUTSIDE LAB OUTSIDE LAB (SEE SCANNED REPORT) HEMOGLOBIN, O1S-ATEDLCI LAB OUTSIDE LAB (SEE SCANNED REPORT) PHOSPHORUS-OUTSID E LAB OUTSIDE LAB (SEE SCANNED REPORT) PTH-OUTSIDE LAB OUTS KEE LAB (SEE SCANNED REPORT) MICROALBUMIN RATIO-OUTSIDE LAB OUTSIDE LA B (SEE SCANNED REPORT) PROTEIN, UA-OUTSIDE LAB OUTSIDE LAB (SEE SCANNED REPORT) HGB 16.0 13.5 - 18.0 GM/DL OUTSIDE LAB (SEE SCANNED REPORT) 02/05/2024 us History Per Patient LABORATORY Final Result OUTSIDE LAB (SEE SCANNED REPORT) documented in this encounter Advance Directives * Full Code (Latest Code Status on File) Date Activated Date Inactivated Comments 04/22/2010 6:35 PM 04/27/2010 9:02 PM Question Answer Comments Discussion of Advance Directives occurred with: Not Discussed Care Teams Concrete Batch Plant Operator Relationship Specialty Start Date End Date Gabriele Dumas MD [address] [place] [address] [place] [address] PCP - General Family Medicine 06/04/21 documented as of this encounter
--- OUTSIDE RECORDS SUMMARY | 2024-03-23 11:48 | External Medical Summary | Summary of Care ---
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 (statuses as of 02/06/2024) Medications Atorvastatin Calcium 40 MG Oral Tablet [...] as of this encounter (statuses as of 02/06/2024) Active Problems Problem Noted Date Diagnosed Date History of pancreatitis 11/18/2022 Chronic bilateral low back pain 05/18/2022 Acquired absence of other left toe(s) 03/16/2022 Mild nonproliferative diabet ic retinopathy of both eyes without macular edema associated with type 2 diabetes mellitus 03/16/2022 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 03/16/2022 Amputation of toe of left foot 04/28/2021 History of osteomyelitis 04/28/2021 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 04/28/2021 [...] as of this encounter (statuses as of 02/06/2024) Resolved Problems Problem Noted Date Diagnosed Date [...] as of this encounter (statuses as of 02/06/2024) Immunizations No known immunizationsdocumented as of this [...] 9:00 AM EST Office Visit Vascular Surg [facility] [address] [address] [address] [address] Arrived 02/23/2024 7:20 AM EST Office Visit Family Medicine [address] [place] [phone] Abida Ren [address] [place] [address] 02/28/2024 8:10 AM EST Office Visit Pharmacy, [address] [place] [phone] [place] [address] 05/13/2024 7:20 AM EDT Office Visit Family [address] [place] [phone] Gabriele Dumas MD [address] [place] [address] [place] [address] 05/24/2024 11:00 AM EDT Office Visit Anita, [address] [place] [address] Lester Livingston DO [address] [place] [address] [address] 05/24/2024 1:00 PM EDT Hospital Encounter ENDO [facility], Endoscopy Room [facility] [address] [place] [phone] Dawn Hilario MD [address] [address] [address] 05/24/2024 1:00 PM EDT - 05/24/2024 1:30 PM EDT Surgery ENDO [facility], Endoscopy Room [facility] [address] [place] [phone] Dawn Hilario MD [address] [place] [address] COLONOSCOPY FLEXIBLE PROXIMAL DIAGNOSTIC 07/10/2024 9:30 AM EDT Office Visit Gastroenterology, [facility] [address] [place] [address] Lynnette Christian CRNP [address] [place] [address] Scheduled Procedures Name Priority Associated Diagnoses Date/Ti [...] this encounter Medical Devices Implanted Type [employer] Device Identifier Shelf Expiration Date Model / Serial / Lot Filter Navalign Femoral Tulip - [id number] [place]ed:Q[place] 1 on [place]21[place]2010 [place] [facility] [place] Inferior Vena Cava COOK : [employer] 04/12/2013 [id number] / / [id number] Cadogan Acetabular Liner +4 [id number] 52mm Od Implanted:Qty: 1 on 04/22/2010 [place] [facility] [place]: Hip 03/16/2015 [id number] / / [id number] Stem Disney Por Tpr Stdoff S6 - [id number] Implanted:Qty: 1 on 04/22/2010 [place] [facility] [place]: Hip JNJ : [employer] 02/14/2020 [id number] / / [id number] Head Mtl Artic Edwardo 36mm Pl5 - [id number] Implanted:Qty: 1 on 04/22/2010 [place] [facility] [place]: Hip JNJ : [employer] 12/14/2014 [id number] / / [id number] Fem Acet Cadogan 300 52mm - [id number] Implanted:Qty: 1 on 04/22/2010 [place] [facility] [place]: Hip JNJ : [employer] [id number] / / [id number] Screw Selftap 3.5x55 204.855 - [id number] Implanted:Qty: 1 on 04/22/2010 [place] [facility] [place]: Hip SYNTHES 204.855 / / Screw Canc 4mm 206.065 - [id number] Implanted:Qty: 1 on 04/22/2010 [place] [facility] [place]: Hip SYNTHES 206.065 / / Screw Canc Cadogan 6.5x50mm - [id number] Implanted:Qty: 1 on 04/22/2010 [place] [facility] [place]: Hip JNJ : [employer] [id number] / / [id number] Screw Canc Cadogan 6.5x30mm - [id number] Implanted:Qty: 1 on 04/22/2010 [place] [facility] [place] Hip JNJ : [employer] 02/14/2020 [id number] / / [id number] Screw Selftap 3.5x55 204.855 - [id number] Implanted:Qty: 2 on 04/22/2010 at [place] [facility] [place]: Hip SYNTHES 204.855 / / Screw Canc 4mm 206.065 - [id number] Implanted:Qty: 1 on 04/22/2010 [place] [facility] [place]: Hip SYNTHES 206.065 / / Screw Canc Cadogan 6.5x15mm - [id number] Implanted:Qty: 1 on 04/22/2010 at [place] [facility] [place]: Hip JNJ : [employer] 02/14/2020 [id number] / / [id number] Lens 20.5 [id number] - [id number] - [id number] Implanted:Qty: 1 on 10/14/2020 by Lester Livingston, at [place] [facility] Right: Eye DUANE : SURGICAL 2025 [id number] / [id number] / Lens 20.0 [id number] - [id number] - [id number] Implanted:Qty: 1 on 12/09/2020 by Lester Livingston, at OR [facility] Left: Eye DUANE : SURGICAL 07/13/2025 [id number] / [id number] / documented as of this encounter Procedures Procedure Name Priority Date/Time Associated Diagnosis Comments RADIOLOGY SCANNED RESULT 02/05/2024 documented in this encounter Results * RADIOLOGY SCANNED RESULT (02/05/2024) 02/05/2024 us No Physician Data Unknown DIAGNOSTIC RADIOLOGY S ERVICES Final Result documented in this encounter Advance Directives * Full Code (Latest Code Status on File) Date Activated Date Inactivated Comments 04/22/2010 6:35 PM 04/27/2010 9:02 PM Question Answer Comments Discussion of Advance Directives occurred with: Not Discussed Care Teams Sales And Events Coordinator Relationship Specialty Start Date End Date Gabriele Dumas MD [address] [place] [address] [place] [phone] PCP - General Family Medicine 06/04/21 documented as of this encounter
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
--- OUTSIDE RECORDS SUMMARY | 2024-03-23 11:48 | External Medical Summary | Summary of Care ---
Author Name Unknown Organization [facility] Address [address] [place] [address] Phone [phone] Care Team Providers Care Process Safety Engineer Name Role Phone Gabriele Dumas MD Primary Care Provide r Encounter Details Date Type Department Care Team (Late st Contact Info) Description 02/08/2024 Orders Only Family Medicine [address] [phone] Gabriele Dumas MD [address] [place] [address] [place] [address] Allergies Active Allergy Reactions Criticality Noted Date Comments Influenza Vaccines 01/18/2013 Guilen-Hackberry syndrome documented as of this encounter (statuses as of 02/08/2024) Medications Atorvastatin Calcium 40 MG Oral Tablet [...] hemoglobin A1c goal of less than 8.0% ([facility]) Use it daily 100 Each 4 Active Lisinopril 40 MG Oral TabletIndication s:HTN, goal below 140/90 TAKE 1 TABLET BY MOUTH IN THE MORNING 90 Tablet 2 4 Active OneTouch Verio In Vitro Strip (Glucose Blood)Indication s:Type 2 diabetes mellitus with hemoglobin A1c goal of less than 8.0% ([facility]) Use to test blood sugars once daily DxE11.9 100 Strip 3 4 Active Aspirin 81 MG Oral Tablet Delayed ReleaseIndicatio ns:PAD (peripheral artery disease) ([facility]) Take 1 Tablet by mouth in the morning. 100 Tablet 3 4 Active metFORMIN HCl ER 500 MG Oral Tablet Extended Release 24 Hour (Glucophage XR)Indications:T ype 2 diabetes mellitus with hemoglobin A1c goal of less than 8.0% ([facility]) TAKE 4 TABLETS BY MOUTH ONCE DAILY IN THE MORNING 360 Tablet 1 4 Active Liraglutide 18 MG/3ML Subcutaneous Solution Pen-injector (Victoza)Indicat ions:Type 2 diabetes mellitus with hemoglobin A1c goal of less than 8.0% ([facility]) Inject 1.8 mg under the skin in the morning. 9 mL 5 4 Active amLODIPine Besylate 5 MG Oral Tablet (Norvasc)Indicat ions:HTN, goal below 140/90 Take 1 Tablet by mouth in the morning. 90 Tablet 1 4 Active Dapagliflozin Propanediol 10 MG Oral Tablet (Farxiga)Indicat ions:Type 2 diabetes mellitus with hemoglobin A1c goal of less than 8.0% ([facility]) Take 1 Tablet by mouth in the [...] 1 tablet daily until gone 6 Tablet Active Additional Information Patient not taking.Reported on 02/06/2024 Silverseal Hydrogel Dressing 2"X3" External Pad Apply topically to affected area. Active Clindamycin HCl 300 MG Oral Capsule Take 1 Capsule by mouth in the morning and 1 Capsule at noon and 1 Capsule before bedtime. Active documented as of this encounter (statuses as of 02/08/2024) Active Problems Problem Noted Date Diagnosed Date History of pancreatitis 11/18/2022 Chronic bilateral low back pain 05/18/2022 Acquired absence of other left toe(s) 03/16/2022 Mild nonproliferative diabet ic retinopathy of both eyes without macular edema associated with type 2 diabetes mellitus 03/16/2022 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 03/16/2022 Amputation of toe of left foot 04/28/2021 History of osteomyelitis 04/28/2021 History of Guillain-Hackberry sy ndrome due to 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 04/28/2021 [...] as of this encounter (statuses as of 02/08/2024) Resolved Problems Problem Noted Date Diagnosed Date [...] as of this encounter (statuses as of 02/08/2024) Immunizations No known immunizationsdocumented as of this [...] No 12/08/2023 Does the household have a scheurer hospitalr source of income? (Household - for [...] 3:00 PM EST Office Visit Vascular Surg [facility] [address] [place] [address] Manoj Chan MD [address] [facility] [place] [address] 02/23/2024 7:20 AM EST Office Visit Family Medicine [address] [phone] Abida Ren CRNP [address] [place] [address] [place] [address] 02/28/2024 8:10 AM EST Office Visit Pharmacy, [address] [place] [address] [place] [address] 05/13/2024 7:20 AM EDT Office Visit Family Medicine [address] [place] [phone] Gabriele Dumas MD [address] [place] [address] [place] [address] 05/24/2024 11:00 AM EDT Office Visit Ari Howard [address] [place] [address] [address] Lester Livingston DO [address] [place] [address] [address] 05/24/2024 1:00 PM EDT Hospital Encounter ENDO [facility], Endoscopy Room [facility] [address] [place] [phone] Dawn Hilario MD [address] [place] [address] 05/24/2024 1:00 PM EDT - 05/24/2024 1:30 PM EDT Surgery ENDO [facility], Endoscopy Room [facility] [address] [place] [phone] Dawn Hilario MD [address] [place] [address] COLONOSCOPY FLEXIBLE PROXIMAL DIAGNOSTIC 07/10/2024 9:30 AM EDT Office Visit Gastroenterology, [facility] [address] [place] [address] Lynnette Christian CRNP [address] [place] [address] Scheduled Procedures Name Priority Associated Diagnoses Date/Ti [...] 03/16/2022, 02/20/2020, Additional history exists HbA1c 06/16/2024 02/05/2024, 05/2023, 10/25/2023, Additional history exists Diabetic [...] this encounter Medical Devices Implanted Type Area Spa Manager Device Identifier Shelf Expiration Date Model / Serial / Lot Filter Navalign Femoral Tulip - [id number] Implanted:Qty: 1 on 04/21/2010 at [place] [facility] Right: Inferior Vena Cava COOK : [employer] 04/12/2013 [id number] / / [id number] Homestead Acetabular Liner +4 [id number] 52mm Od Implanted:Qty: 1 on 04/22/2010 at OR [facility] Right: Hip 03/16/2015 [id number] / / [id number] Stem [place] Por Tpr Stdoff S6 - [id number] Implanted:Qty: 1 on 04/22/2010 at OR [facility] Right: Hip JNJ : [facility] 02/14/2020 [id number] / / [id number] Head Mtl Artic Edwardo 36mm Pl5 - [id number] Implanted:Qty: 1 on 04/22/2010 at OR [facility] Right: Hip JNJ : [employer] 12/14/2014 [id number] / / [id number] Fem Acet Homestead 300 52mm - [id number] Implanted:Qty: 1 on 04/22/2010 at OR [facility] Right: Hip JNJ : [employer] [id number] / / [id number] Screw Selftap 3.5x55 204.855 - [id number] Implanted:Qty: 1 on 04/22/2010 at OR [facility] Right: Hip SYNTHES 204.855 / / Screw Canc 4mm 206.065 - [id number] Implanted:Qty: 1 on 04/22/2010 at OR [facility] Right: Hip SYNTHES 206.065 / / Screw Canc Homestead 6.5x50mm - [id number] Implanted:Qty: 1 on 04/22/2010 at OR [facility] Right: Hip JNJ : [employer] [id number] / / [id number] Screw Canc Homestead 6.5x30mm - [id number] Implanted:Qty: 1 on 04/22/2010 at OR [facility] Right: Hip JNJ : [employer] 02/14/2020 [id number] / / [id number] Screw Selftap 3.5x55 204.855 - [id number] Implanted:Qty: 2 on 04/22/2010 at OR [facility] Right: Hip SYNTHES 204.855 / / Screw Canc 4mm 206.065 - [id number] Implanted:Qty: 1 on 04/22/2010 at OR [facility] Right: Hip SYNTHES 206.065 / / Screw Canc Homestead 6.5x15mm - [id number] Implanted:Qty: 1 on 04/22/2010 at OR [facility] Right: Hip JNJ : [employer] 02/14/2020 [id number] / / [id number] Lens 20.5 [id number] - [id number] - [id number] Implanted:Qty: 1 on 10/14/2020 by Lester Livingston DO at OR [facility] Right: Eye DUANE : SURGICAL 2025 [id number] / [id number] / Lens 20.0 [id number] - [id number] - [id number] Implanted:Qty: 1 on 12/09/2020 by Lester Livingston DO at OR [facility] Left: Eye DUANE : SURGICAL 07/13/2025 [id number] / [id number] / documented as of this encounter Procedures Procedure Name Priority Date/Time Associated Diagnosis Comments HEMOGLOBIN A1C Routine 02/05/2024 documented in this encounter Results * (ABNORMAL) HEMOGLOBIN A1C (02/05/2024) HEMOGLOBIN, [facility] 7.6(A) 3.8 - 5.6 % OUTSIDE LAB (SEE SCANNED REPORT) Blood Venous blood specimen / Unknown 02/05/2024 Barby Seth DPM LAB BLOOD OR DERABLES Final Result OUTSIDE LAB (SEE SCANNED REPORT) documented in this encounter Advance Directives * Full Code (Latest Code Status on File) Date Activated Date Inactivated Comments 04/22/2010 6:35 PM 04/27/2010 9:02 PM Question Answer Comments Discussion of Advance Directives occurred with: Not Discussed Care Teams Process Safety Engineer Relationship Specialty Start Date End Date Gabriele Dumas MD [address] [place] [address] [place] [address] PCP - General Family Medicine 06/04/21 documented as of this encounter
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
--- OUTSIDE RECORDS SUMMARY | 2024-03-23 11:49 | External Medical Summary | Summary of Care ---
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 (statuses as of 01/03/2024) Medications Atorvastatin Calcium 40 MG Oral Tablet [...] at bedtime 120 Tablet 12 4 Active documented as of this encounter (statuses as of 01/03/2024) Active Problems Problem Noted Date Diagnosed Date History of pancreatitis 11/18/2022 Chronic bilateral low back pain 05/18/2022 Acquired absence of other left toe(s) 03/16/2022 Mild nonproliferative diabet ic retinopathy of both eyes without macular edema associated with type 2 diabetes mellitus 03/16/2022 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 (Household - for ages [...] Team (Late st Contact Info) Description 01/17/2024 8:30 AM EST Imaging Vascular Lab, [facility] 2nd [facility] [address] [facility] [place] [address] 01/17/2024 9:50 AM EST Office Visit Vascular Surgery, [address] [place] [address] Manoj Chan MD [address] [facility] [place] [address] 01/30/2024 8:00 AM EST Office Visit Pharmacy, [address] [place] [address] [place] [address] 02/23/2024 7:20 AM EST Office Visit [address] [phone] Abida Ren CRNP [address] [place] [address] [place] [address] 05/13/2024 7:20 AM EDT Office Visit [address] [place] [phone] Gabriele Dumas MD [address] [place] [address] [place] [address] 05/24/2024 11:00 AM EDT Office Visit OphthalmologyAri [address] [place] [address] Lester Livingston DO [address] [address] 05/24/2024 1:00 PM EDT Hospital Encounter ENDO OSS, Endoscopy Room [facility] [address] [place] [phone] Dawn Hilario MD [address] [place] [address] 05/24/2024 1:00 PM EDT - 05/24/2024 1:30 PM EDT Surgery ENDO OSS, Endoscopy Room [facility] [address] [place] [phone] Dawn Hilario MD [address] [place] [address] COLONOSCOPY FLEXIBLE PROXIMAL DIAGNOSTIC 07/10/2024 9:30 AM EDT Office Visit Gastroenterology, [facility] [address] [place] [address] Lynnette Christian CRNP [address] [place] [address] Pending Results Name Type Priority Associated Diagnoses Date /Time CLOSTRIDIUM DIFFICILE, PCR Lab Routine Diarrhea, unspecified type 01/03/2024 8:40 AM EST Scheduled Procedures Name Priority Associated Diagnoses Date/Ti [...] this encounter Medical Devices Implanted Type Area Timber Selector Device Identifier Shelf Expiration Date Model / Serial / Lot Filter Navalign Femoral [place]ip - [id number] Implanted:Qty: 1 on 04/21/2010 at OR [facility] Right: Inferior Vena Cava COOK : [employer] 04/12/2013 [id number] / / [id number] [place] Acetabular Liner +4 [id number] 52mm Od Implanted:Qty: 1 on 04/22/2010 at OR [facility] Right: Hip 03/16/2015 [id number] / / [id number] Stem [place] Por Tpr Stdoff S6 - [id number] Implanted:Qty: 1 on 04/22/2010 at OR [facility] Right: Hip JNJ : [facility] [employer] 02/14/2020 [id number] / / [id number] Head Mtl Artic Edwardo 36mm Pl5 - [id number] Implanted:Qty: 1 on 04/22/2010 at OR [facility] Right: Hip JNJ : [facility] [employer] 12/14/2014 [id number] / / [id number] Fem Acet [place] 300 52mm - [id number] Implanted:Qty: 1 on 04/22/2010 at OR [facility] Right: Hip JNJ : [employer] [id number] / / [id number] Screw Selftap 3.5x55 204.855 - [id number] Implanted:Qty: 1 on 04/22/2010 at OR [facility] Right: Hip SYNTHES 204.855 / / Screw Canc 4mm 206.065 - [id number] Implanted:Qty: 1 on 04/22/2010 at OR [facility] Right: Hip SYNTHES 206.065 / / Screw Canc [place] 6.5x50mm - [id number] Implanted:Qty: 1 on 04/22/2010 at [facility] Right: Hip JNJ : [employer] [id number] / / [id number] Screw Canc [place] 6.5x30mm - [id number] Implanted:Qty: 1 on 04/22/2010 at OR [facility] Right: Hip JN[place] : [employer] 02/14/2020 [id number] / / [id number] Screw Selftap 3.5x55 204.855 - [id number] Implanted:Qty: 2 on 04/22/2010 at OR [facility] Right: Hip SYNTHES 204.855 / / Screw Canc 4mm 206.065 - [id number] Implanted:Qty: 1 on 04/22/2010 at OR [facility] Right: Hip SYNTHES 206.065 / / Screw Canc [place] 6.5x15mm - [id number] Implanted:Qty: 1 on 04/22/2010 at OR [facility] Right: Hip JN[place] : [employer] 02/14/2020 [id number] / / [id number] Lens 20.5 [id number] - [id number] - [id number] Implanted:Qty: 1 on 10/14/2020 by Lester Livingston DO at OR [facility] Right: Eye DUANE : SURGICAL 2025 [id number] / [id number] / Lens 20.0 [id number] - [id number] - [id number] Implanted:Qty: 1 on 12/09/2020 by Lester Livingston DO at OR [facility] Left: Eye DUANE : SURGICAL 07/13/2025 [id number] / [id number] / documented as of this encounter Visit Diagnoses Diagnosis Diarrhea, unspecified type Diarrhea, unspecified type documented in this encounter Additional Health Concerns Infection Onset Date Last Indicated Resolved Time C. difficile Rule-Out 01/03/2024 01/03/2024 documented as of this encounter Advance Directives * Full Code (Latest Code Status on File) Date Activated Date Inactivated Comments 04/22/2010 6:35 PM 04/27/2010 9:02 PM Question Answer Comments Discussion of Advance Directives occurred with: Not Discussed Care Teams Corrugator Supervisor Relationship Specialty Start Date End Date Gabriele Dumas MD [address] [place] [address] [place] [address] PCP - General Family Medicine 06/04/21 documented as of this encounter
--- OUTSIDE RECORDS SUMMARY | 2024-03-23 11:49 | External Medical Summary ---
Author Name Unknown Address Unknown Organization K01:[facility] - [address] [place] [address] Laboratory Report Ordering Provider Test Date Status JAXON CARRILLO 01/03/2024 08:40:37 Final Observation Date Value Abnormality Reference (Units) Status Source 01/03/2024 08:40:37 Semi-liquid Final Clostridioides difficile toxin and BI-[id number] strain DNA panel - Stool by BRAD with probe detection 01/03/2024 08:40:37 Negative. No C. difficile toxin B gene DNA detected by PCR (Amplified Probe). Negative Final Performing Location [facility] - [address] [place] [address]
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
--- OUTSIDE RECORDS SUMMARY | 2024-03-23 11:49 | External Medical Summary | Summary of Care ---
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 documented as of this encounter (statuses as of 01/04/2024) Medications Atorvastatin Calcium 40 MG Oral Tablet [...] as of this encounter (statuses as of 01/04/2024) Active Problems Problem Noted Date Diagnosed Date History of pancreatitis 11/18/2022 Chronic bilateral low back pain 05/18/2022 Acquired absence of other left toe(s) 03/16/2022 Mild nonproliferative diabet ic retinopathy of both eyes without macular edema associated with type 2 diabetes mellitus 03/16/2022 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 03/16/2022 Amputation of toe of left foot 04/28/2021 History of osteomyelitis 04/28/2021 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 source [facility]? (Household - [...] Care Team (Late st Contact Info) Description 01/04/2024 10:20 AM EST Office Visit Family Medicine [address] [place] [phone] Gabriele Dumas MD [address] [place] [address] [place] [address] 01/17/2024 8:30 AM EST Imaging Vascular Lab, [facility] [address] [place] [address] 01/17/2024 9:50 AM EST Office Visit Vascular Surgery, [address] [place] [address] Manoj Chan MD [address] [facility] [place] [address] 01/30/2024 8:00 AM EST Office Visit Pharmacy, [address] [place] [address] [place] [address] 02/23/2024 7:20 AM EST Office Visit [address] [place] [phone] Abida Ren CRNP [address] [place] [address] [place] [address] 05/13/2024 7:20 AM EDT Office Visit [address] [place] [phone] Gabriele Dumas MD [address] [place] [address] [place] [address] 05/24/2024 11:00 AM EDT Office Visit Ari Howard [address] [place] [address] Lester Livingston DO [address] [address] 05/24/2024 1:00 PM EDT Hospital Encounter ENDO OSS, Endoscopy Room [facility] [address] [place] [phone] Dawn Hilario MD [address] [place] [address] 05/24/2024 1:00 PM EDT - 05/24/2024 1:30 PM EDT Surgery ENDO OSS, Endoscopy Room [facility] [address] [place] [phone] Dawn Hilario MD [address] [place] [address] COLONOSCOPY FLEXIBLE PROXIMAL DIAGNOSTIC 07/10/2024 9:30 AM EDT Office Visit Gastroenterology, [facility] [address] [place] [address] Lynnette Christian CRNP [address] [place] [address] Scheduled Procedures Name Priority Associated Diagnoses Date/Ti [...] this encounter Medical Devices Implanted Type Area Reporting Process Consultant Device Identifier Shelf Expiration Date Model / Serial / Lot Filter Navalign Femoral Tulip - [id number] Implanted:Qty: 1 on 04/21/2010 at [place] [facility] Right: Inferior Vena Cava COOK : [employer] 04/12/2013 [id number] / / [id number] [place] Acetabular Liner +4 [id number] Id 52mm Od Implanted:Qty: 1 on 04/22/2010 at OR [facility] Right: Hip 03/16/2015 1221-36-152 / / [id number] Stem [place] Por Tpr Stdoff S6 - [id number] Implanted:Qty: 1 on 04/22/2010 at OR [facility] Right: Hip JNJ : [employer] 02/14/2020 [id number] / / [id number] Head Mtl Artic Edwardo 36mm Pl5 - [id number] Implanted:Qty: 1 on 04/22/2010 at OR [facility] Right: Hip JNJ : [employer] 12/14/2014 [id number] / / [id number] Cup Fem Acet [place] 300 52mm - [id number] Implanted:Qty: 1 on 04/22/2010 at OR [facility] Right: Hip JNJ : [employer] [id number] / / [id number] Screw Selftap 3.5x55 204.855 - [id number] Implanted:Qty: 1 on 04/22/2010 at OR [facility] Right: Hip SYNTHES 204.855 / / Screw Canc 4mm 206.065 - [id number] Implanted:Qty: 1 on 04/22/2010 at OR [facility] Right: Hip SYNTHES 206.065 / / Screw Canc [place] 6.5x50mm - [id number] Implanted:Qty: 1 on 04/22/2010 at OR [facility] Right: Hip JNJ : [employer] [id number] / / [id number] Screw Canc [place] 6.5x30mm - [id number] Implanted:Qty: 1 on 04/22/2010 at [facility] Right: Hip JNJ : [employer] 02/14/2020 [id number] / / [id number] Screw [place]ftap 3.5x55 204.855 - [id number] Implanted:Qty: 2 on 04/22/2010 at OR [facility] Right: Hip SYNTHES 204.855 / / Screw Canc 4mm 206.065 - [id number] Implanted:Qty: 1 on 04/22/2010 at OR [facility] Right: Hip SYNTHES 206.065 / / Screw Canc [place] 6.5x15mm - [id number] Implanted:Qty: 1 on 04/22/2010 at OR [facility] Right: Hip JNJ : [employer] 02/14/2020 [id number] / / [id number] Lens 20.5 [id number] - [id number] 039 - [id number] Implanted:Qty: 1 on 10/14/2020 by Lester Livingston DO at OR [facility] Right: Eye DUANE : SURGICAL 2025 [id number] / [id number] / Lens 20.0 [id number] - [id number] 086 - [id number] Implanted:Qty: 1 on 12/09/2020 by Lester Livingston DO at OR [facility] Left: Eye DUANE : SURGICAL 07/13/2025 [id number] 0 / [id number] / documented as of this encounter Advance Directives * Full Code (Latest Code Status on File) Date Activated Date Inactivated Comments 04/22/2010 6:35 PM 04/27/2010 9:02 PM Question Answer Comments Discussion of Advance Directives occurred with: Not Discussed Care Teams Space Planner Relationship Specialty Start Date End Date Gabriele Dumas MD [address] [place] [address] [place] [address] PCP - General Family Medicine 06/04/21 documented as of this encounter
--- OUTSIDE RECORDS SUMMARY | 2024-03-23 11:49 | External Medical Summary | Summary of Care ---
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 Pt is aware of report, as his is his Honing Machine Set Up Operator Tool Thank you * Telephone Encounter - Danika Chavez OSA - 12/28/2023 11:01 AM EST Hello- The radiologist discovered an unexpected or indeterminate finding on Reji Santos ([id number]) and asks that you review the following report. Study Type: MRI FOOT RIGHT W WO [...] ankle for further evaluation if clinically indicated. Please respond to this encounter to acknowledge receipt of this message and take responsibility to ensure this report is reviewed. Thank you, PRAVEEN Anderson Client Service [facility] documented in this encounter Plan of Treatment Upcoming Encounters Date Type Department Care Team (Late st Contact Info) Description 01/02/2024 2:00 PM EST Office Visit Gastroenterology, [facility] [address] [facility] [place] [address] Lynnette Christian CRNP 132 [facility] [place] [address] 01/17/2024 8:30 AM EST Imaging Vascular Lab, [facility] [address] [place] [address] 01/17/2024 9:50 AM EST Office Visit Vascular Surgery, [address] [place] [address] Manoj Chan MD [address] [place] [address] 01/30/2024 8:00 AM EST Office Visit Pharmacy, [address] [place] [address] [place] [address] 02/23/2024 7:20 AM EST Office Visit Family Medicine [address] [place] [phone] Abida Ren CRNP [address] [place] [address] [place] [address] 05/13/2024 7:20 AM EDT Office Visit Family Medicine [address] [place] [phone] Gabriele Dumas MD [address] [place] [address] [place] [address] 05/24/2024 11:00 AM EDT Office Visit Ophthalmology, [place] [address] [place] [address] Lester Livingston DO 21 [place] [address] Health Maintenance Due Date Last Done Comments [...] this encounter Medical Devices Implanted Type Area Landscaping Manager Device Identifier Shelf Expiration Date Model / Serial / Lot Filter Navalign Femoral Tulip - [id number] Implanted:Qty: 1 on 04/21/2010 at [place] [facility] Right: Inferior Vena Cava COOK : [employer] 04/12/2013 [id number] / / [id number] [place] Acetabular Liner +4 [id number] Id 52mm Od Implanted:Qty: 1 on 04/22/2010 at OR [facility] Right: Hip 03/16/2015 1221-36-152 / / [id number] Stem Iron Por Tpr Stdoff S6 - [id number] Implanted:Qty: 1 on 04/22/2010 at [place] [facility] Right: Hip JNJ : [employer] 02/14/2020 [id number] / / [id number] Head Mtl Artic Edwardo 36mm Pl5 - [id number] Implanted:Qty: 1 on 04/22/2010 at [place] [facility] Right: Hip JNJ : [employer] 12/14/2014 [id number] / / [id number] Cup Fem Acet [place] 300 52mm - [id number] Implanted:Qty: 1 on 04/22/2010 at [place] [facility] Right: Hip JNJ : [employer] [id number] / / [id number] Screw Selftap 3.5x55 204.855 - [id number] Implanted:Qty: 1 on 04/22/2010 at [facility] Right: Hip SYNTHES 204.855 / / Screw Canc 4mm 206.065 - [id number] Implanted:Qty: 1 on 04/22/2010 at [facility] Right: Hip SYNTHES 206.065 / / Screw Canc [place] 6.5x50mm - [id number] Implanted:Qty: 1 on 04/22/2010 at [place] [facility] Right: Hip JNJ : [employer] [id number] / / [id number] Screw Canc Aubrey 6.5x30mm - [id number] Implanted:Qty: 1 on 04/22/2010 at [place] [facility] Right: Hip JNJ : [employer] 02/14/2020 [id number] / / [id number] Screw Selftap 3.5x55 204.855 - [id number] Implanted:Qty: 2 on 04/22/2010 at [place] [facility] Right: Hip SYNTHES 204.855 / / Screw Canc 4mm 206.065 - [id number] Implanted:Qty: 1 on 04/22/2010 at [place] [facility] Right: Hip SYNTHES 206.065 / / Screw Canc Aubrey 6.5x15mm - [id number] Implanted:Qty: 1 on 04/22/2010 at [place] [facility] Right: Hip JNJ : [employer] 02/14/2020 [id number] / / [id number] Lens 20.5 [id number] - [id number] 039 - [id number] Implanted:Qty: 1 on 10/14/2020 by Lester Livingston DO at OR [facility] Right: Eye DUANE : SURGICAL 2025 [id number] 5 / [id number] / Lens 20.0 [id number] - [id number] 086 - [id number] Implanted:Qty: 1 on 12/09/2020 by Lester Livingston DO at OR [facility] Left: Eye DUANE : SURGICAL 07/13/2025 [id number] 0 / [id number] / documented as of this encounter Advance Directives * Full Code (Latest Code Status on File) Date Activated Date Inactivated Comments 04/22/2010 6:35 PM 04/27/2010 9:02 PM Question Answer Comments Discussion of Advance Directives occurred with: Not Discussed Care Teams Log Handler Relationship Specialty Start Date End Date Gabriele Dumas MD [address] [place] [address] [place] [address] PCP - General Family Medicine 06/04/21 documented as of this encounter
--- OUTSIDE RECORDS SUMMARY | 2024-03-23 11:49 | External Medical Summary | Summary of Care ---
Author Name Unknown Organization [facility] Address [address] [place] [address] Phone [phone] Care Team Providers Care Addiction Professional Name Role Phone Gabriele Dumas MD Primary Care Provide r Reason for Visit * Reason Onset Date Comments Test Results 12/28/2023 Encounter Details Date Type Department Care Team (Late st Contact Info) Description 12/28/2023 Telephone Laboratory, [place] [address] [place] [address] Checo Albert PA-C [address] [place] [address] Test Results Allergies Active Allergy Reactions Criticality Noted Date Comments Influenza Vaccines 01/18/2013 Guilen-Clear syndrome documented as of this encounter (statuses [...] 04/28/2021 History of osteomyelitis 04/28/2021 History of Guillain-Clear sy ndrome due to 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 04/28/2021 [...] encounter Miscellaneous Notes * Telephone Encounter - Danika Chavez OSA - 12/28/2023 11:01 AM EST Hello- The radiologist discovered an unexpected or indeterminate finding on Reji Santos ([id number]) and asks that you review the following [...] ensure this report is reviewed. Thank you, Danika Chavez, PRAVEEN Client Service Rep [facility] documented in this encounter Plan of Treatment Upcoming Encounters Date Type Department Care Team (Late st Contact Info) Description 01/02/2024 2:00 PM EST Office Visit Gastroenterology, [address] [place] [address] Lynnette Christian CRNP 132 [facility] [place] [address] 01/17/2024 8:30 AM EST Imaging Vascular Lab, [facility] 2nd Floor, [address] [place] [address] 01/17/2024 9:50 AM EST Office Visit Vascular Surgery, [address] [place] [address] Manoj Chan MD [address] [place] [address] 01/30/2024 8:00 AM EST Office Visit Pharmacy, [address] [place] [address] [place] [address] 02/23/2024 7:20 AM EST Office Visit [address] [phone] Abida Ren CRNP [address] [place] [address] [place] [address] 05/13/2024 7:20 AM EDT Office Visit [address] [phone] Gabriele Dumas MD [address] [place] [address] [place] [address] 05/24/2024 11:00 AM EDT Office Visit Ophthalmology, [place] [address] [place] [address] Lester Livingston DO 21 [place] [address] Health Maintenance Due Date Last Done Comments [...] this encounter Medical Devices Implanted Type Area Nurse Liaison Device Identifier Shelf Expiration Date Model / Serial / Lot Filter Navalign Femoral Tulip - [id number] Implanted:Qty: 1 on 04/21/2010 at [place] [facility] Right: Inferior Vena Cava COOK : [employer] INC 04/12/2013 [id number] / / [id number] [place] Acetabular Liner +4 [id number] Id 52mm Od Implanted:Qty: 1 on 04/22/2010 at [place] [facility] Right: Hip 03/16/2015 1221-36-152 / / [id number] Stem [place] Por Tpr Stdoff S6 - [id number] Implanted:Qty: 1 on 04/22/2010 at [place] [facility] Right: Hip JNJ : [facility] 02/14/2020 [id number] / / [id number] Head Mtl Artic Edwardo 36mm Pl5 - [id number] Implanted:Qty: 1 on 04/22/2010 at [place] [facility] Right: Hip JNJ : [employer] 12/14/2014 [id number] / / [id number] Cup Fem Acet [place] 300 52mm - [id number] Implanted:Qty: 1 on 04/22/2010 at [place] [facility] Right: Hip JNJ : [employer] [id number] / / [id number] Screw Selftap 3.5x55 204.855 - [id number] Implanted:Qty: 1 on 04/22/2010 at [place] [facility] Right: Hip SYNTHES 204.855 / / Screw Canc 4mm 206.065 - [id number] Implanted:Qty: 1 on 04/22/2010 at [place] [facility] Right: Hip SYNTHES 206.065 / / Screw Canc [place] 6.5x50mm - [id number] Implanted:Qty: 1 on 04/22/2010 at [place] [facility] Right: Hip JNJ : [employer] [id number] / / [id number] Screw Canc [place] 6.5x30mm - [id number] Implanted:Qty: 1 on 04/22/2010 at [place] [facility] Right: Hip JNJ : [employer] 02/14/2020 [id number] / / [id number] Screw Selftap 3.5x55 204.855 - [id number] Implanted:Qty: 2 on 04/22/2010 at [place] [facility] Right: Hip SYNTHES 204.855 / / Screw Canc 4mm 206.065 - [id number] Implanted:Qty: 1 on 04/22/2010 at [place] [facility] Right: Hip SYNTHES 206.065 / / Screw Canc [place] 6.5x15mm - [id number] Implanted:Qty: 1 on 04/22/2010 at [place] [facility] Right: Hip JNJ : [employer] 02/14/2020 [id number] / / [id number] Lens 20.5 [id number] - [id number] 039 - [id number] Implanted:Qty: 1 on 10/14/2020 by Lester Livingston DO at OR [facility] Right: Eye DUANE : SURGICAL 2025 [id number] / [id number] 039 / Lens 20.0 [id number] - [id number] 086 - [id number] Implanted:Qty: 1 on 12/09/2020 by Lester Livingston DO at OR [facility] Left: Eye DUANE : SURGICAL 07/13/2025 [id number] 0 / [id number] 086 / documented as of this encounter Advance Directives * Full Code (Latest Code Status on File) Date Activated Date Inactivated Comments 04/22/2010 6:35 PM 04/27/2010 9:02 PM Question Answer Comments Discussion of Advance Directives occurred with: Not Discussed Care Teams Addiction Professional Relationship Specialty Start Date End Date Gabriele Dumas MD [address] [place] [address] [place] [phone] PCP - General Family Medicine 06/04/21 documented as of this encounter
--- OUTSIDE RECORDS SUMMARY | 2024-03-23 11:49 | External Medical Summary | Summary of Care ---
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 Thank you, PRAVEEN Anderson Client Service [facility] documented in this encounter Plan of Treatment Upcoming Encounters Date Type Department Care Team (Late st Contact Info) Description 01/02/2024 2:00 PM EST Office Visit Gastroenterology, [facility] 132 [facility] [place] [address] Lynnette Christian CRNP 132 [facility] [place] [address] 01/17/2024 8:30 AM EST Imaging Vascular Lab, [facility] [address] [place] [address] 01/17/2024 9:50 AM EST Office Visit Vascular Surgery, [address] [place] [address] Manoj Chan MD [address] [place] [address] 01/30/2024 8:00 AM EST Office Visit Pharmacy, [address] [place] [address] [place] [address] 02/23/2024 7:20 AM EST Office Visit Family Medicine [address] [place] [phone] Abida Ren CRNP [address] [place] [address] [place] [address] 05/13/2024 7:20 AM EDT Office Visit Family Medicine [address] [place] [phone] Gabriele Dumas MD [address] [place] [address] [place] [address] 05/24/2024 11:00 AM EDT Office Visit Ophthalmology, [place] [address] [place] [address] Lester Livingston DO [address] [place] [address] Health Maintenance Due Date Last Done Comments [...] this encounter Medical Devices Implanted Type Area Report Manager Device Identifier Shelf Expiration Date Model / Serial / Lot Filter Navalign Femoral Tulip - [id number] Implanted:Qty: 1 on 04/21/2010 at [place] [facility] Right: Inferior Vena Cava COOK : [employer] INC 04/12/2013 [id number] / / [id number] [place] Acetabular Liner +4 [id number] Id 52mm Od Implanted:Qty: 1 on 04/22/2010 at [place] [facility] Right: Hip 03/16/2015 1221-36-152 / / [id number] Stem [place] Por Tpr Stdoff S6 - [id number] Implanted:Qty: 1 on 04/22/2010 at OR [facility] Right: Hip JNJ : [employer] 02/14/2020 [id number] / / [id number] Head Mtl Artic Edwardo 36mm Pl5 - [id number] Implanted:Qty: 1 on 04/22/2010 at [place] [facility] Right: Hip JNJ : [employer] 12/14/2014 [id number] / / [id number] Cup Fem Acet [place] 300 52mm - [id number] Implanted:Qty: 1 on 04/22/2010 at [place] [facility] Right: Hip JNJ : [employer] [id number] / / [id number] Screw Selftap 3.5x55 204.855 - [id number] Implanted:Qty: 1 on 04/22/2010 at [facility] Right: Hip SYNTHES 204.855 / / Screw Canc 4mm 206.065 - [id number] Implanted:Qty: 1 on 04/22/2010 at [facility] Right: Hip SYNTHES 206.065 / / Screw Canc [place] 6.5x50mm - [id number] Implanted:Qty: 1 on 04/22/2010 at [place] [facility] Right: Hip JNJ : [employer] [id number] / / [id number] Screw Canc [place] 6.5x30mm - [id number] Implanted:Qty: 1 on 04/22/2010 at [place] [facility] Right: Hip JNJ : [employer] 02/14/2020 [id number] / / [id number] Screw Selftap 3.5x55 204.855 - [id number] Implanted:Qty: 2 on 04/22/2010 at [place] [facility] Right: Hip SYNTHES 204.855 / / Screw Canc 4mm 206.065 - [id number] Implanted:Qty: 1 on 04/22/2010 at [place] [facility] Right: Hip SYNTHES 206.065 / / Screw Canc [place] 6.5x15mm - [id number] Implanted:Qty: 1 on 04/22/2010 at [place] [facility] Right: Hip JNJ : [employer] 02/14/2020 [id number] / / [id number] Lens 20.5 [id number] - [id number] 039 - [id number] Implanted:Qty: 1 on 10/14/2020 by Lester Livingston DO at OR [facility] Right: Eye DUANE : SURGICAL 2025 [id number] / [id number] / Lens 20.0 [id number] - [id number] 086 - [id number] Implanted:Qty: 1 on 12/09/2020 by Lester Livingston DO at OR [facility] Left: Eye DUANE : SURGICAL 07/13/2025 [id number] 0 / [id number] / documented as of this encounter Advance Directives * Full Code (Latest Code Status on File) Date Activated Date Inactivated Comments 04/22/2010 6:35 PM 04/27/2010 9:02 PM Question Answer Comments Discussion of Advance Directives occurred with: Not Discussed Care Teams Natural Gas Plant Technician Relationship Specialty Start Date End Date Gabriele Dumas MD [address] [place] [address] [place] [address] PCP - General Family Medicine 06/04/21 documented as of this encounter
--- OUTSIDE RECORDS SUMMARY | 2024-03-23 11:49 | External Medical Summary | Summary of Care ---
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 (statuses as of 01/05/2024) Medications Atorvastatin Calcium 40 MG Oral Tablet [...] as of this encounter (statuses as of 01/05/2024) Active Problems Problem Noted Date Diagnosed Date History of pancreatitis 11/18/2022 Chronic bilateral low back pain 05/18/2022 Acquired absence of other left toe(s) 03/16/2022 Mild nonproliferative diabet ic retinopathy of both eyes without macular edema associated with type 2 diabetes mellitus 03/16/2022 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 03/16/2022 Amputation of toe of left foot 04/28/2021 History of osteomyelitis 04/28/2021 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 (Household - for ages [...] as of this encounter Miscellaneous Notes * Result Encounter Note - Lynnette Christian CRNP - 01/05/2024 9:54 AM EST Spoke with the patient on the phone, notified him of negative C diff results. He states his symptoms are much better on the Colestid. He will get TTG drawn when he gets his next diabetes labs drawn. documented in this encounter Plan of Treatment Upcoming Encounters Date Type Department Care Team (Late st Contact Info) Description 01/17/2024 8:30 AM EST [facility] [address] [place] [address] 01/17/2024 9:50 AM EST Office Visit Vascular Surgery, [facility] [address] [facility] [place] [address] Manoj Chan MD [address] [place] [facility] [place] [address] 01/30/2024 8:00 AM EST Office Visit [facility], [address] [place] [address] [place] [address] 02/23/2024 7:20 AM EST Office Visit [address] [phone] Abida Ren CRNP [address] [place] [address] [place] [address] 05/13/2024 7:20 AM EDT Office Visit [address] [phone] Gabriele Dumas MD [address] [place] [address] [place] [address] 05/24/2024 11:00 AM EDT Office Visit Ari Howard [address] [place] [address] Lester Livingston DO [address] [place] [address] 05/24/2024 1:00 PM EDT Hospital Encounter ENDO [facility], Endoscopy Room [facility] [address] [place] [phone] Dawn Hilario MD [address] [place] [address] 05/24/2024 1:00 PM EDT - 05/24/2024 1:30 PM EDT Surgery ENDO [facility], Endoscopy Room [facility] [address] [place] [phone] Dawn Hilario MD [address] [place] [address] COLONOSCOPY FLEXIBLE PROXIMAL DIAGNOSTIC 07/10/2024 9:30 AM EDT Office Visit Gastroenterology, [facility] [address] [place] [address] Lynnette Christian CRNP [address] [place] [address] Scheduled Procedures Name Priority Associated Diagnoses Date/Ti [...] this encounter Medical Devices Implanted Type Area Concrete Spreader Device Identifier Shelf Expiration Date Model / Serial / Lot Filter Navalign Femoral Tulip - [id number] Implanted:Qty: 1 on 04/21/2010 at OR [facility] Right: Inferior Vena Cava COOK : [employer] 04/12/2013 [id number] / / [id number] [place] Acetabular Liner +4 [id number] 52mm Od Implanted:Qty: 1 on 04/22/2010 at [facility] Right: Hip 03/16/2015 [id number] / / [id number] Stem [place] Por Tpr Stdoff S6 - [id number] Implanted:Qty: 1 on 04/22/2010 at OR [facility] Right: Hip JNJ : [employer] 02/14/2020 [id number] / / [id number] Head Mtl Artic Edwardo 36mm Pl5 - [id number] Implanted:Qty: 1 on 04/22/2010 at OR [facility] Right: Hip JNJ : [employer] 12/14/2014 [id number] / / [id number] Fem Acet [place] 300 52mm - [id number] Implanted:Qty: 1 on 04/22/2010 at OR [facility] Right: Hip JNJ : [employer] [id number] / / [id number] Screw Selftap 3.5x55 204.855 - [id number] Implanted:Qty: 1 on 04/22/2010 at OR [facility] Right: Hip SYNTHES 204.855 / / Screw Canc 4mm 206.065 - [id number] Implanted:Qty: 1 on 04/22/2010 at [facility] Right: Hip SYNTHES 206.065 / / Screw Canc [place] 6.5x50mm - [id number] Implanted:Qty: 1 on 04/22/2010 at OR [facility] Right: Hip JNJ : [employer] [id number] / / [id number] Screw Canc [place] 6.5x30mm - [id number] Implanted:Qty: 1 on 04/22/2010 at OR [facility] Right: Hip JNJ : [employer] 02/14/2020 [id number] / / [id number] Screw Selftap 3.5x55 204.855 - [id number] Implanted:Qty: 2 on 04/22/2010 at OR [facility] Right: Hip SYNTHES 204.855 / / Screw Canc 4mm 206.065 - [id number] Implanted:Qty: 1 on 04/22/2010 at OR [facility] Right: Hip SYNTHES 206.065 / / Screw Canc [place] 6.5x15mm - [id number] Implanted:Qty: 1 on 04/22/2010 at OR [facility] Right: Hip JNJ : [employer] 02/14/2020 [id number] / / [id number] Lens 20.5 [id number] - [id number] 039 - [id number] Implanted:Qty: 1 on 10/14/2020 by Lester Livingston DO at OR [facility] Right: Eye DUANE : SURGICAL 2025 [id number] / [id number] [id number] / Lens 20.0 [id number] - [id number] 086 - [id number] Implanted:Qty: 1 on 12/09/2020 by Lester Livingston DO at OR [facility] Left: Eye DUANE : SURGICAL 07/13/2025 [id number] / [id number] / documented as of this encounter Procedures Procedure Name Priority Date/Time Associated Diagnosis Comments CLOSTRIDIUM DIFFICILE, PCR Routine 01/03/2024 8:40 AM EST Diarrhea, unspecified type documented in this encounter Results * CLOSTRIDIUM DIFFICILE, PCR (01/03/2024 8:40 AM EST) Stool Consistency Semi-liquid 01/03/2024 3:00 PM EST LABORATORY [facility] Clostridium difficile Result Negative. No C. difficile toxin B gene DNA detected by PCR (Amplified Probe). Negative 01/03/2024 3:00 PM EST LABORATORY [facility] Stool Stool specimen / Unknown Non-blood Collection / Unknown 01/03/2024 8:40 AM EST 01/03/2024 8:40 AM EST us Lynnette SMITH LAB MICRO - GENERAL ORDERA BLES Final Result [facility] [address] [facility] [address] [address] documented in this encounter Visit Diagnoses Diagnosis Diarrhea, unspecified type Diarrhea, unspecified type documented in this encounter Additional Health Concerns Infection Onset Date Last Indicated Resolved Time C. difficile Rule-Out 01/03/2024 01/03/20242023 3:00 PM EST documented as of this encounter Advance Directives * Full Code (Latest Code Status on File) Date Activated Date Inactivated Comments 04/22/2010 6:35 PM 04/27/2010 9:02 PM Question Answer Comments Discussion of Advance Directives occurred with: Not Discussed Care Teams Rides Attendant Relationship Specialty Start Date End Date Gabriele uDmas MD [address] [place] [address] [place] [phone] PCP - General Family Medicine 06/04/21 documented as of this encounter
--- OUTSIDE RECORDS SUMMARY | 2024-03-23 11:49 | External Medical Summary | Summary of Care ---
Author Name Unknown Organization [facility] Address [address] [place] [address] Phone [phone] Care Team Providers Care Rivet Hole Machine Operator Name Role Phone Gabriele Dumas MD Primary Care Provide r Reason for Visit * Reason Onset Date Comments Medication Refill 01/09/2024 Encounter Details Date Type Department Care Team (Late st Contact Info) Description 01/09/2024 Refill Family [address] [phone] Gabriele Dumas MD [address] [place] [address] [place] [phone] Acute frontal sinusitis, recurrence not specified Allergies Active Allergy Reactions Criticality Noted Date Comments Influenza Vaccines 01/18/2013 Guilen-Northville syndrome documented as of this encounter (statuses as of 01/10/2024) Medications Atorvastatin Calcium 40 MG Oral Tablet (Lipitor) Take 1 Tablet by mouth in the morning. 90 Tablet 5 04/06/19 23 Active OneTouch Delica Lancets 33G Use to test blood sugars once daily DxE11.9 100 Each 3 10/05/19 23 Active Glimepiride 4 MG Oral Tablet (Amaryl)Indicati ons:Type 2 diabetes mellitus with hemoglobin A1c goal of less than 8.0% ([facility]) Take 1 Tablet by [...] Administer intravenously once a week. 01/03/20 24 024 Active Doxycycline Hyclate 100 MG Oral CapsuleIndicatio ns:Acute frontal sinusitis, recurrence not specified Take 1 Capsule by mouth in the morning and 1 Capsule before bedtime. Do all this for 7 days. Take for 7 days. 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 Take for 7 days.Refused By: Riki VEGAS for Refusal: Duplicate Request documented in this encounter Plan of Treatment Upcoming Encounters Date Type Department Care Team (Late st Contact Info) Description 01/17/2024 8:30 AM EST Imaging Vascular Lab, [facility]nd [facility] [address] [facility] [place] [address] 01/17/2024 9:50 AM EST Office Visit Vascular Surgery, [address] [place] [address] Manoj Chan MD [address] [facility] [address] 01/30/2024 8:00 AM EST Office Visit Pharmacy, [address] [place] [address] [place] [address] 02/23/2024 7:20 AM EST Office Visit Family Medicine [address] [phone] Abida Ren [address] [place] [address] 05/13/2024 7:20 AM EDT Office Visit Family Medicine [address] [phone] Gabriele Dumas MD [address] [place] [address] [place] [address] 05/24/2024 11:00 AM EDT Office Visit Ophthalmology, [place] [address] Lester Livingston DO [address] [place] [address] 05/24/2024 1:00 PM EDT Hospital Encounter ENDO [facility], Endoscopy Room [facility] [address] [place] [phone] Dawn Hilario MD [address] [place] [address] 05/24/2024 1:00 PM EDT - 05/24/2024 1:30 PM EDT Surgery ENDO [facility], Endoscopy Room [facility] [address] [place] [phone] Dawn Hilario MD [address] [place] [address] COLONOSCOPY FLEXIBLE PROXIMAL DIAGNOSTIC 07/10/2024 9:30 AM EDT Office Visit Gastroenterology, [facility] [address] [place] [address] Lynnette Christian CRNP [address] [place] [address] Scheduled Procedures Name Priority Associated Diagnoses Date/Ti [...] this encounter Medical Devices Implanted Type Area Quartz Mounter Device Identifier Shelf Expiration Date Model / Serial / Lot Filter Navalign Femoral Tulip - [id number] Implanted:Qty: 1 on 04/21/2010 at [place] [facility] Right: Inferior Vena Cava COOK : [employer] 04/12/2013 [id number] / / [id number] [place] Acetabular Liner +4 [id number] Id 52mm Od Implanted:Qty: 1 on 04/22/2010 at [place] [facility] Right: Hip 03/16/2015 [id number] / / [id number] Stem [place] Por Tpr Stdoff S6 - [id number] Implanted:Qty: 1 on 04/22/2010 at [place] [facility] Right: Hip JNJ : [employer] 02/14/2020 [id number] / / [id number] Head Mtl Artic Edwardo 36mm Pl5 - [id number] Implanted:Qty: 1 on 04/22/2010 at [place] [facility] Right: Hip JNJ : [employer] 12/14/2014 [id number] / / [id number] Fem Acet [place] 300 52mm - [id number] Implanted:Qty: 1 on 04/22/2010 at [place] [facility] Right: Hip JNJ : [employer] [id number] / / [id number] Screw Selftap 3.5x55 204.855 - [id number] Implanted:Qty: 1 on 04/22/2010 at [place] [facility] Right: Hip SYNTHES 204.855 / / Screw Canc 4mm 206.065 - [id number] Implanted:Qty: 1 on 04/22/2010 at [place] [facility] Right: Hip SYNTHES 206.065 / / Screw Canc [place] 6.5x50mm - [id number] Implanted:Qty: 1 on 04/22/2010 at [place] [facility] Right: Hip JNJ : [employer] [id number] / / [id number] Screw Canc [place] 6.5x30mm - [id number] Implanted:Qty: 1 on 04/22/2010 at [place] [facility] Right: Hip JNJ : [employer] 02/14/2020 [id number] / / [id number] Screw Selftap 3.5x55 204.855 - [id number] Implanted:Qty: 2 on 04/22/2010 at [place] [facility] Right: Hip SYNTHES 204.855 / / Screw Canc 4mm 206.065 - [id number] Implanted:Qty: 1 on 04/22/2010 at [place] [facility] Right: Hip SYNTHES 206.065 / / Screw Canc [place] 6.5x15mm - [id number] Implanted:Qty: 1 on 04/22/2010 at [place] [facility] Right: Hip JNJ : [employer] 02/14/2020 [id number] / / [id number] Lens 20.5 [id number] - [id number] 039 - [id number] Implanted:Qty: 1 on 10/14/2020 by Lester Livingston DO at OR [facility] Right: Eye DUANE : SURGICAL 2025 [id number] / [id number] / Lens 20.0 [id number] - [id number] 086 - [id number] Implanted:Qty: 1 on 12/09/2020 by Lester Livingston DO at OR [facility] Left: Eye DUANE : SURGICAL 07/13/2025 [id number] / [id number] / documented as of this encounter Visit Diagnoses Diagnosis Acute frontal sinusitis, recurrence not specified Diarrhea, unspecified type documented in this encounter Advance Directives * Full Code (Latest Code Status on File) Date Activated Date Inactivated Comments 04/22/2010 6:35 PM 04/27/2010 9:02 PM Question Answer Comments Discussion of Advance Directives occurred with: Not Discussed Care Teams Rivet Hole Machine Operator Relationship Specialty Start Date End Date Gabriele Dumas MD [address] [place] [address] [place] [phone] PCP - General Family Medicine 06/04/21 documented as of this encounter
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
--- OUTSIDE RECORDS SUMMARY | 2024-03-23 11:49 | External Medical Summary | Summary of Care ---
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 04/28/2021 [...] 01/17/2024 8:30 AM EST Imaging [address]ascular Lab, [address] [address] 01/17/2024 9:50 AM EST Office Visit Vascular Surgery, [address] [place] [address] Manoj Chan MD [address] [facility] [address] 01/30/2024 8:00 AM EST Office Visit Pharmacy, [address] [place] [address] [place] [address] 02/23/2024 7:20 AM EST Office Visit Family Medicine [address] [place] [phone] Abida Ren CRNP [address] [place] [address] [place] [address] 05/13/2024 7:20 AM EDT Office Visit [address] [place] [phone] Gabriele Dumas MD [address] [place] [address] [place] [address] 05/24/2024 11:00 AM EDT [facility] Visit [facility] [address] Lester Livingston DO [facility] [place] [address] 05/24/2024 1:00 PM EDT Hospital Encounter ENDO [facility], Endoscopy Room [facility] [address] [facility] [place] [phone] Dawn Hilario MD [address] [place] [address] 05/24/2024 1:00 PM EDT - 05/24/2024 1:30 PM EDT Surgery ENDO [facility], Endoscopy Room [facility] [address] [facility] [place] [phone] Dawn Hilario MD [address] [place] [address] COLONOSCOPY FLEXIBLE PROXIMAL DIAGNOSTIC 07/10/2024 9:30 AM EDT Office Visit Gastroenterology, [facility] 132 [facility] [place] [address] Lynnette Christian CRNP [address] [place] [address] Scheduled Procedures Name Priority Associated Diagnoses Date/Ti [...] exists Depression Screening 12/17/2024 12/18/2023 GFR 12/17/2024 01/02/2024, 05/2023, 10/25/2023, Additional history exists Cologuard [...] encounter Medical Devices Implanted Type Area Certified Green Building Engineer Device Identifier Shelf Expiration Date Model / Serial / Lot Filter Navalign Femoral Tulip - [id number] [place]ed:Qty[place] 1 on [place] [facility] [place]: Inferior Vena Cava COOK : [employer] 04/12/2013 [id number] / / [id number] [place] Acetabular Liner +4 [id number] 52mm Od Implanted:Qty: 1 on 04/22/2010 [place] [facility] [place] Right: Hip 03/16/2015 [id number] / / [id number] Stem [place] Por Tpr Stdoff S6 - [id number] Implanted:Qty: 1 on 04/22/2010 [place] [facility] [place]: Hip JNJ : [employer] 02/14/2020 [id number] / / [id number] Head Mtl Artic Edwardo 36mm Pl5 - [id number] Implanted:Qty: 1 on 04/22/2010 [place] [facility] [place]: Hip JNJ : [employer] 12/14/2014 [id number] / / [id number] Fem Acet [place] 300 52mm - [id number] Implanted:Qty: 1 on 04/22/2010 [place] [facility] [place]: Hip JNJ : [employer] [id number] / / [id number] Screw Selftap 3.5x55 204.855 - [id number] Implanted:Qty: 1 on 04/22/2010 at [place] [facility] [place] Right: Hip SYNTHES 204.855 / / Screw Canc 4mm 206.065 - [id number] Implanted:Qty: 1 on 04/22/2010 at [place] [facility] [place] Right: Hip SYNTHES 206.065 / / Screw Canc [place] 6.5x50mm - [id number] Implanted:Qty: 1 on 04/22/2010 at [place] [facility] [place] Right: Hip JNJ : [employer] [id number] / / [id number] Screw Canc [place] 6.5x30mm - [id number] Implanted:Qty: 1 on 04/22/2010 at [place] [facility] [place]: Hip JNJ : [employer] 02/14/2020 [id number] / / [id number] Screw Selftap 3.5x55 204.855 - [id number] Implanted:Qty: 2 on 04/22/2010 at [place] [facility] [place] Right: Hip SYNTHES 204.855 / / Screw Canc 4mm 206.065 - [id number] Implanted:Qty: 1 on 04/22/2010 at [place] [facility] [place] Right: Hip SYNTHES 206.065 / / Screw Canc [place] 6.5x15mm - [id number] Implanted:Qty: 1 on 04/22/2010 at [place] [facility] [place]: Hip JNJ : [employer] 02/14/2020 [id number] / / [id number] Lens 20.5 [id number] - [id number] - [id number] Implanted:Qty: 1 on 10/14/2020 by Lester Livingston, DO at OR [facility] Right: Eye DUANE : SURGICAL 2025 [id number] / [id number] / Lens 20.0 [id number] - [id number] - [id number] Implanted:Qty: 1 on 12/09/2020 by Lester Livingston, DO at OR [facility] Left: Eye DUANE : SURGICAL 07/13/2025 [id number] / [id number] / documented as of this encounter Procedures Procedure Name Priority Date/Time Associated Diagnosis Comments CHEMISTRY-OUTSIDE Routine 01/02/2024 documented in this encounter Results * (ABNORMAL) CHEMISTRY-OUTSIDE (01/02/2024) Not all results display below - see scan for full detail OUTSIDE LAB (SEE SCANNED REPORT) Comment:SCAN INCLUDES - CMP, CBCD, SED RATE CREATININE 0.68(A) 0.70 - 1.30 MG/DL OUTSIDE LAB (SEE SCANNED REPORT) EGFR >90 >=60 ML/MIN/1.7 3M2 OUTSIDE LAB (SEE SCANNED REPORT) POTASSIUM 4.1 3.5 - 5.1 MMOL/L OUTSIDE LAB (SEE SCANNED REPORT) GLUCOSE 125(A) 70 - 110 MG/DL OUTSIDE LAB (SEE [...] LAB OUTSIDE LAB (SEE SCANNED REPORT) HEMOGLOBIN, I5Q-OADSYNB LAB OUTSIDE LAB (SEE SCANNED REPORT) PHOSPHORUS-OUTSID E LAB OUTSIDE LAB (SEE SCANNED REPORT) PTH-OUTSIDE LAB OUTS KEE LAB (SEE SCANNED REPORT) MICROALBUMIN RATIO-OUTSIDE LAB OUTSIDE LA B (SEE SCANNED REPORT) PROTEIN, UA-OUTSIDE LAB OUTSIDE LAB (SEE SCANNED REPORT) HGB 15.6 13.5 - 18.0 GM/DL OUTSIDE LAB (SEE SCANNED REPORT) 01/02/2024 Barby Seth DPM LABORATORY Final Result OUTSIDE LAB (SEE SCANNED REPORT) documented in this encounter Additional Health Concerns Infection Onset Date Last Indicated Resolved Time C. difficile Rule-Out 01/03/2024 01/03/2024 documented as of this encounter Advance Directives * Full Code (Latest Code Status on File) Date Activated Date Inactivated Comments 04/22/2010 6:35 PM 04/27/2010 9:02 PM Question Answer Comments Discussion of Advance Directives occurred with: Not Discussed Care Teams Trigonometry Teacher Relationship Specialty Start Date End Date Gabriele Dumas MD [address] [place] [address] [place] [address] PCP - General Family Medicine 06/04/21 documented as of this encounter
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
--- OUTSIDE RECORDS SUMMARY | 2024-03-23 11:50 | External Medical Summary ---
Author Name Unknown Address Unknown Organization K01:LABORATORY [facility] - [facility] [address] [facility] [address] [facility] [address] Laboratory Report Ordering Provider Test Date Status COLEEN ALMAZAN 12/26/2023 08:28:11 Rochelle l Observation Date Value Abnormality Reference (Units ) Status Campylobacter sp DNA.diarrheagenic [Presence] in Stool by BRAD with probe detection 12/26/2023 08:28:11 Negative Negative Final Salmonella sp rpoD gene [Presence] in Stool by BRAD with probe detection 12/26/2023 08:28:11 Negative Negative Final Shigella species+EIEC invasion plasmid antigen H ipaH gene [Presence] in Stool by BRAD with probe detection 12/26/2023 08:28:11 Negative Negative Final Vibrio sp DNA [Identifier] in Specimen by BRAD with probe detection 12/26/2023 08:28:11 Negative Negative Final Yersinia enterocolitica recN gene [Presence] in Stool by BRAD with probe detection 12/26/2023 08:28:11 Negative Negative Final Escherichia coli Stx1 toxin stx1 gene [Presence] in Stool by BRAD with probe detection 12/26/2023 08:28:11 Negative Negative Final Escherichia coli Stx2 toxin stx2 gene [Presence] in Stool by BRAD with probe detection 12/26/2023 08:28:11 Negative Negative Final Norovirus genogroups I and II RNA panel - Stool by BRAD with probe detection 12/26/2023 08:28:11 Negative Negative Final Rotavirus A RNA [Presence] in Stool by BRAD with probe detection 12/26/2023 08:28:11 Negative Negative Final Performing Location LABORATORY [place] [address] [facility] [facility] [address]
--- OUTSIDE RECORDS SUMMARY | 2024-03-23 11:50 | External Medical Summary | Summary of Care ---
Author Name Unknown Organization [facility] Address [address] [place] [address] Phone [phone] Care Team Providers Care Inventory Control Manager Name Role Phone Gabriele Dumas MD Primary Care Provide r Reason for Visit * Reason Onset Date Comments Appointment 12/18/2023 2 mon ret and GI appt Encounter Details Date Type Department Care Team (Late st Contact Info) Description 12/18/2023 Telephone Family [address] [phone] Gabriele Dumas MD [address] [place] [address] [place] [address] Appointment (2 mon ret and GI appt ) Allergies Active Allergy Reactions Criticality Noted Date Comments 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 90 Tablet 5 04/06/2022 Active OneTouch Delica Lancets 33G Use to test blood sugars once daily DxE11.9 100 Each 3 10/04/2022 Active Glimepiride 4 MG Oral Tablet (Amaryl)Indications:T ype 2 diabetes mellitus with hemoglobin A1c goal of less than 8.0% (HCC) Take 1 Tablet by mouth in the morning and 1 Tablet before bedtime. 180 Tablet 2 06/02/2023 Active Dapagliflozin Propanediol 10 MG Oral Tablet (Farxiga)Indications: Type 2 diabetes mellitus with hemoglobin A1c goal of less than 8.0% (HCC) Take 1 Tablet by mouth in the morning. 90 Tablet 1 06/28/2023 Active Novofine Pen Needle 32G X 6 MM (NOVOFINE 32G PEN NEEDLE)Indications:Ty pe 2 diabetes mellitus with hemoglobin A1c goal of less than 8.0% (HCC) Use it daily 100 Each 07/20/2023 Active Lisinopril 40 MG Oral TabletIndications:HTN , goal below 140/90 TAKE 1 TABLET BY MOUTH IN THE MORNING 90 Tablet 2 08/08/2023 Active OneTouch Verio In Vitro Strip (Glucose Blood)Indications:Typ e 2 diabetes mellitus with hemoglobin A1c goal of less than 8.0% (HCC) Use to test blood sugars once daily DxE11.9 100 Strip 3 11/06/2023 Active Aspirin 81 MG Oral Tablet Delayed ReleaseIndications:PA D (peripheral artery disease) (HCC) Take 1 Tablet by mouth in the morning. 100 Tablet 3 11/08/2023 Active metFORMIN HCl ER 500 MG Oral Tablet Extended Release 24 Hour (Glucophage XR)Indications:Type 2 diabetes mellitus with hemoglobin A1c goal of less than 8.0% (HCC) TAKE 4 TABLETS BY MOUTH ONCE DAILY IN THE MORNING 360 Tablet 1 12/04/2023 Active Liraglutide 18 MG/3ML Subcutaneous Solution Pen-injector (Victoza)Indications: Type 2 diabetes mellitus with hemoglobin A1c goal of less than 8.0% ([facility]) Inject 1.8 mg under the skin in the morning. 9 mL 5 12/04/2023 Active amLODIPine Besylate 5 MG Oral Tablet (Norvasc)Indications: HTN, goal below 140/90 Take 1 Tablet by mouth in the morning. 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 Presence of IVC filter 04/22/2011 Type 2 diabetes mellitus wit h hemoglobin A1c goal of less than 8.0% 04/23/2010 Overview: hgba1c 8.6 S/P total hip arthroplasty 04/22/2010 Hyperlipidemia with target LDL less than 100 Overview: ICD-10 update of inactive term Foot drop, right documented as of this encounter (statuses as of 12/18/2023) Resolved Problems Problem Noted Date Diagnosed Date Resolved Date DM type 2 causing vascular disease 07/26/2010 04/28/2021 Acute infective polyneuritis 07/26/2010 02/01/2012 HTN, goal below 130/80 05/25/201010/05 Overview: Per HTN Protocol #27. Closed dislocation of hip 04/20/2010 Overview: Right, posterior Closed fracture of acetabulum 04/20/2010 02/01/2012 Overview: Right Closed fracture of four ribs 04/20/2010 02/01/2012 Overview: Right Traumatic hemothorax without open wound into thorax 04/20/2010 02/01/2012 Overview: Right Open wound of upper arm 04/20/201001/13 Overview: Right Type 2 diabetes mellitus wit h hemoglobin A1c goal of less than 7.0% 03/03/2009 11/06/2018 Overview: ICD-10 update of inactive term Swelling, mass, or lump in chest 03/03/2009 12/18/2014 Overview: Chest xray 02/24/09: 5mm apical nodule documented as of this encounter (statuses as of 12/18/2023) Immunizations No known immunizationsdocumented as of this encounter Social History Tobacco Use Types Packs/Day Years Used Date Smoking Tobacco: Never Smokeless Tobacco: Never Alcohol Use Standard Drinks/Week Comments No 0 (1 standard drink = 0.6 oz pur e alcohol) PHQ-2 Answer Date Recorded PHQ Adult Total Score 0 06/04/2021 Hunger Vital Sign Answer Date Recorded Within [...] Assigned at Male 11/11/2022 3:30 PM EDT Gender Identity Male 11/11/2022 3:30 PM EDT Sexual Orientation Straight 11/11/2022 3: 30 PM EDT Job Start Date Occupation Industry Not on file Not on file Not on file documented as of this encounter Miscellaneous Notes * Telephone Encounter - Regine Crowe OSA - 12/18/2023 1:38 PM EST I left message on patient's Vm to call me (RE: He did not checkout today, he needs to schedule Return in about 2 months (around 02/17/2024) and also a GI appt). documented in this encounter Plan of Treatment Upcoming Encounters Date Type Department Care Team (Late st Contact Info) Description 12/21/2023 10:30 AM EST [address] [address] 12/21/2023 11:30 AM EST Imaging Vascular Lab, [address] [place] [address] 12/27/2023 8:00 AM EST Office Visit Pharmacy, [address] [place] [address] [place] [address] 12/27/2023 9:10 AM EST Office Visit Vascular Surgery, [address] [place] [address] Manoj Chan MD [address] [place] [address] 05/13/2024 7:20 AM EDT Office Visit Family Medicine [address] [place] [phone] Gabriele Dumas MD [address] [place] [address] [place] [address] 05/24/2024 11:00 AM EDT Office Visit Ophthalmology, [address] [place] [address] Lester Livingston DO [address] [place] [address] Health Maintenance Due Date Last Done Comments Pneumococcal Vaccine: 65+ Years (1 of 2 - PCV) 06/16/1956 DTap/Tdap Vaccines (1 - Tdap) 1968 Colonoscopy 1994 Fecal Occult Blood Test 1994 Sigmoidoscopy 1994 Adult Wellness Visit 06/16/2015 COVID-19 Vaccine ( - season) 2023 Diabetic Foot Exam 02/28/2024 02/27/2023, 0 03/16/2022, 02/20/2020, Additional history exists HbA1c 04/23/2024 10/25/2023, 08/14, 03/17/2023, Additional history exists Diabetic Eye Exam 09/20/2024 09/21/2023, , 09/21/2023, Additional history exists Albumin/Creatinine Ratio 10/24/2024 024, 03/16/2022, 04/28/2021, Additional history exists GFR 10/24/2024 10/25/2023, 09/14, 09/04/2023, Additional history exists Depression Screening 12/17/2024 12/18/2023 Cologuard 06/16/2025 06/16/2022, 05/15, 06/07/2022 Colorectal Cancer [...] this encounter Medical Devices Implanted Type Area Product Responsibility Liaison Device Identifier Shelf Expiration Date Model / Serial / Lot Filter Navalign Femoral Tulip - [id number] [place]planted:Qty: 1 on [place] [facility] [place]: Inferior Vena Cava COOK : [employer] 04/12/2013 [id number] / / [id number] [place] Acetabular Liner +4 [id number] 52mm Od Implanted:Qty: 1 on 04/22/2010 at [facility] Right: Hip 03/16/2015 [id number] / / [id number] Stem Long Bottom Por Tpr Stdoff S6 - [id number] Implanted:Qty: 1 on 04/22/2010 at [facility] Right: Hip JNJ : [employer] 02/14/2020 [id number] / / [id number] Head Mtl Artic Edwardo 36mm Pl5 - [id number] Implanted:Qty: 1 on 04/22/2010 at [facility] Right: Hip JNJ : [employer] 12/14/2014 [id number] / / [id number] Fem Acet [place] 300 52mm - [id number] Implanted:Qty: 1 on 04/22/2010 [place] [facility] [place]: Hip JNJ : [employer] [id number] / / [id number] Screw Selftap 3.5x55 204.855 - [id number] Implanted:Qty: 1 on 04/22/2010 at [facility] Right: Hip SYNTHES 204.855 / / Screw Canc 4mm 206.065 - [id number] Implanted:Qty: 1 on 04/22/2010 at [facility] Right: Hip SYNTHES 206.065 / / Screw Canc [place] 6.5x50mm - [id number] Implanted:Qty: 1 on 04/22/2010 at [facility] Right: Hip JNJ : [employer] [id number] / / [id number] Screw Canc [place] 6.5x30mm - [id number] Implanted:Qty: 1 on 04/22/2010 [place] [facility] [place]: Hip JNJ : [employer] 02/14/2020 [id number] / / [id number] Screw Selftap 3.5x55 204.855 - [id number] Implanted:Qty: 2 on 04/22/2010 [place] [facility] [place]: Hip SYNTHES 204.855 / / Screw Canc 4mm 206.065 - [id number] Implanted:Qty: 1 on 04/22/2010 at [place] [facility] [place] Right: Hip SYNTHES 206.065 / / Screw Canc [place] 6.5x15mm - [id number] Implanted:Qty: 1 on 04/22/2010 [place] [facility] [place]: Hip JNJ : [employer] 02/14/2020 [id number] / / [id number] Lens 20.5 [id number] - [id number] - [id number] Implanted:Qty: 1 on 10/14/2020 by Lester Livingston DO at OR [facility] Right: Eye DUANE : SURGICAL 2025 [id number] / [id number] / Lens 20.0 [id number] - [id number] - [id number] Implanted:Qty: 1 on 12/09/2020 by Lester Livingston DO at OR [facility] Left: Eye DUANE : SURGICAL 07/13/2025 [id number] / [id number] / documented as of this encounter Additional Health Concerns Infection Onset Date Last Indicated Resolved Time Gastrointestinal Rule-Out 12/18/2023 12/18/2023 documented as of this encounter Advance Directives * Full Code (Latest Code Status on File) Date Activated Date Inactivated Comments 04/22/2010 6:35 PM 04/27/2010 9:02 PM Question Answer Comments Discussion of Advance Directives occurred with: Not Discussed Care Teams Inventory Control Manager Relationship Specialty Start Date End Date Gabriele Dumas MD [address] [place] [address] [place] [address] PCP - General Family Medicine 06/04/21 documented as of this encounter
--- OUTSIDE RECORDS SUMMARY | 2024-03-23 11:50 | External Medical Summary | Summary of Care ---
Author Name Unknown Organization [facility] Address [address] [place] [address] Phone [phone] Care Team Providers Care Grades 1 Thru 6 Home Teacher Name Role Phone Tha Dumas MD Primary Care Provide r Reason for Visit * Reason Onset Date Comments Medication Refill 12/25/2023 Encounter Details Date Type Department Care Team (Late st Contact Info) Description 12/25/2023 Refill Family [address] [place] [address] Tha Dumas MD [address] [place] [address] [place] [phone] Type 2 diabetes mellitus with hemoglobin A1c goal of less than 8.0% ([facility]) Allergies Active Allergy Reactions Criticality Noted Date Comments Influenza Vaccines 01/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 90 Tablet 1 4 12/25/19 24 Discontinu ed(Refill) documented as of this encounter (statuses as of 12/25/2023) Active Problems Problem Noted Date Diagnosed Date History of pancreatitis 11/18/2022 Chronic bilateral low back pain 05/18/2022 Acquired absence of other left toe(s) 03/16/2022 Mild nonproliferative diabet ic retinopathy of both eyes without macular edema associated with type 2 diabetes mellitus 03/16/2022 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 03/16/2022 Amputation of toe of left foot 04/28/2021 History of osteomyelitis 04/28/2021 History of Guillain-[place]port sy ndrome due to 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 04/28/2021 [...] as of this encounter (statuses as of 12/25/2023) Resolved Problems Problem Noted Date Diagnosed Date [...] as of this encounter (statuses as of 12/25/2023) Immunizations No known immunizationsdocumented as of this [...] Miscellaneous Notes * Telephone Encounter - Tha Dumas MD - 12/25/2023 12:32 PM EST Signed Prescriptions: Disp Refills Dapagliflozin Propanediol 10 MG Oral Table*90 Tab*1 Sig: Take 1 Tablet by mouth in the morning. Authorizing Provider: THA DUMAS * Telephone Encounter - Niki Madrigal RN - 12/25/2023 12:24 PM ESTPending Prescriptions: Disp Refills Dapagliflozin Propanediol 10 MG Oral Table*90 Tab*1 Sig: Take 1 Tablet by mouth in the morning. * Telephone Encounter - Regine Crowe, PRAVEEN - 12/25/2023 12:14 PM EST Did you pend patient's preferred pharmacy and medication before forwarding?yes [facility] [address] [place] [address] Pending Prescriptions: Disp Refills Dapagliflozin Propanediol 10 MG Oral Tabl*90 Tab*1 Sig: Take 1 Tablet by mouth in the morning. Last Visit: 12/18/2023 (in office), Visit date not found (telemedicine) Next Visit: 02/23/2024 If no future appointments scheduled, and last appointment is greater than a year ago, please schedule patient for a follow-up appointment Last date the medication was ordered: 06/28/23 Is this request for a controlled substance?No Urine Drug Screen:No results found for this or any previous visit. Patient Phone Numbers Labs: Lab Results Component Value Date/Time CREAT 0.6 12/18/2023 10:44 AM CREAT 0.97 10/09/2023 12:00 AM CREAT 0.6 02/20/2020 10:48 AM POTASSIUM 4.1 12/18/2023 10:44 AM POTASSIUM 4.4 10/09/2023 12:00 AM POTASSIUM 4.6 02/20/2020 10:48 AM [...] Care Team (Late st Contact Info) Description 12/26/2023 9:00 AM EST Office Visit Pharmacy, [address] [place] [phone] [place] [address] 12/27/2023 9:10 AM EST Office Visit Vascular Surgery, [facility] [address] [facility] [place] [address] Manoj Chan MD [address] [place] [address] 01/02/2024 2:00 PM EST Office Visit Gastroenterology, [facility] [address] [facility] [place] [address] Lynnette Christian CRNP [address] [facility] [place] [address] 02/23/2024 7:20 AM EST [address] [phone] Abida Ren CRNP [address] [place] [address] [place] [address] 05/13/2024 7:20 AM EDT Office Visit [address] [phone] Tha Dumas MD [address] [place] [address] [place] [address] 05/24/2024 11:00 AM EDT Office Visit Ophthalmology, [address] [place] [address] Lester Livingston DO [address] [place] [address] Health Maintenance Due Date Last Done Comments [...] this encounter Medical Devices Implanted Type Area Grocery Stock Clerk Device Identifier Shelf Expiration Date Model / Serial / Lot Filter Navalign Femoral Tulip - [id number] Implanted:Qty: 1 on 04/21/2010 at [place] [facility] [place] Right: Inferior Vena Cava COOK : [employer] 04/12/2013 [id number] / / [id number] [place] Acetabular Liner +4 [id number] 52mm Od Implanted:Qty: 1 on 04/22/2010 at [place] [facility] [place] Right: Hip 03/16/2015 [id number] / / [id number] Stem [place] Por Tpr Stdoff S6 - [id number] Implanted:Qty: 1 on 04/22/2010 at [place] [facility] [place] Right: Hip JNJ : [facility] [employer] 02/14/2020 [id number] / / [id number] Head Mtl Artic Edwardo 36mm Pl5 - [id number] Implanted:Qty: 1 on 04/22/2010 at [place] [facility] [place] Right: Hip JNJ : [employer] 12/14/2014 [id number] / / [id number] Fem Acet [place] 300 52mm - [id number] Implanted:Qty: 1 on 04/22/2010 at [place] [facility] [place] Right: Hip JNJ : [employer] [id number] / / [id number] Screw Selftap 3.5x55 204.855 - [id number] Implanted:Qty: 1 on 04/22/2010 at [place] [facility] [place] Right: Hip SYNTHES 204.855 / / Screw Canc 4mm 206.065 - [id number] Implanted:Qty: 1 on 04/22/2010 at [place] [facility] [place] Right: Hip SYNTHES 206.065 / / Screw Canc [place] 6.5x50mm - [id number] Implanted:Qty: 1 on 04/22/2010 at [place] [facility] [place] Right: Hip JNJ : [employer] [id number] / / [id number] Screw Canc [place] 6.5x30mm - [id number] Implanted:Qty: 1 on 04/22/2010 at [place] [facility] [place] Right: Hip JNJ : [employer] 02/14/2020 [id number] / / [id number] Screw Selftap 3.5x55 204.855 - [id number] Implanted:Qty: 2 on 04/22/2010 at [place] [facility] [place] Right: Hip SYNTHES 204.855 / / Screw Canc 4mm 206.065 - [id number] Implanted:Qty: 1 on 04/22/2010 at [place] [facility] [place] Right: Hip SYNTHES 206.065 / / Screw Canc [place] 6.5x15mm - [id number] Implanted:Qty: 1 on 04/22/2010 at [place] [facility] [place] Right: Hip JNJ : [employer] 02/14/2020 [id number] / / [id number] Lens 20.5 [id number] - [id number] - [id number] Implanted:Qty: 1 on 10/14/2020 by Lester Livingston DO at OR [facility] Right: Eye DUANE : SURGICAL 2025 [id number] / [id number] / Lens 20.0 [id number] - [id number] 086 - [id number] Implanted:Qty: 1 on 12/09/2020 by Lester Livingston DO at OR [facility] Left: Eye DUANE : SURGICAL 07/13/2025 [id number] / [id number] / documented as of this encounter Visit Diagnoses Diagnosis Type 2 diabetes mellitus with hemoglobin A1c goal of less than 8.0% ([facility]) documented in this encounter Additional Health Concerns Infection Onset Date Last Indicated Resolved Time Gastrointestinal Rule-Out 12/18/2023 12/18/2023 documented as of this encounter Advance Directives * Full Code (Latest Code Status on File) Date Activated Date Inactivated Comments 04/22/2010 6:35 PM 04/27/2010 9:02 PM Question Answer Comments Discussion of Advance Directives occurred with: Not Discussed Care Teams Grades 1 Thru 6 Home Teacher Relationship Specialty Start Date End Date Tha Dumas MD [address] [place] [address] [place] [phone] PCP - General Family Medicine 06/04/21 documented as of this encounter
--- OUTSIDE RECORDS SUMMARY | 2024-03-23 11:50 | External Medical Summary ---
Author Name Unknown Address Unknown Organization [id number]:[facility] [place] [address] [place] [id number] Laboratory Report Ordering Provider Test Date Status COLEEN ALMAZAN 12/26/2023 08:28:11 Rochelle l Observation Date Value Abnormality Reference (Units) Status Bacteria identified in Specimen by Culture 12/26/2023 08:28:11 No Aeromonas species or Plesiomonas species isolated. Final Test: Gastrointestinal Patho gen Panel Culture
Specimen Source: Stool
Specimen Type: Stool
Specimen Date: 12/26/2023827
Result Date: 12/28/20231056
Result Status: Final result
Resulting Lab: [facility] [place]
[address]
[place] [phone]

CULTURE

No Aeromonas species or Plesiomonas species isolated.

null Performing Location [facility] [place] [address] [place] [id number]
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
--- OUTSIDE RECORDS SUMMARY | 2024-03-23 11:50 | External Medical Summary | Summary of Care ---
Author Name Unknown Organization [facility] Address [address] [place] [address] Phone [phone] Care Team Providers Care Modeling Director Name Role Phone Gabriele Dumas MD Primary Care Provide r Reason for Visit * Reason Comments Outpatient Testing Encounter Details Date Type Department Care Team (Late st Contact Info) Description 12/18/2023 10:40 AM EST Laboratory Laboratory [address] [place] [phone] [place] [address] Arrived Allergies Active Allergy Reactions Criticality Noted Date Comments Influenza Vaccines 01/18/2013 Guilen-Lincoln syndrome documented as of this encounter (statuses [...] A1c goal of less than 8.0% ([facility]) Take 1 Tablet by mouth in the morning. 90 Tablet 1 06/28/2023 Active Novofine Pen Needle 32G X 6 MM (NOVOFINE 32G PEN NEEDLE)Indications:Ty pe 2 diabetes mellitus with hemoglobin A1c goal of less than 8.0% ([facility]) Use it daily 100 Each 07/20/2023 Active Lisinopril 40 MG Oral TabletIndications:HTN , goal below 140/90 TAKE 1 TABLET BY MOUTH IN THE MORNING 90 Tablet 2 08/08/2023 Active OneTouch Verio In Vitro Strip (Glucose Blood)Indications:Typ e 2 diabetes mellitus with hemoglobin A1c goal of less than 8.0% ([facility]) Use to test blood sugars once daily DxE11.9 100 Strip 3 11/06/2023 Active Aspirin 81 MG Oral Tablet Delayed ReleaseIndications:PA D (peripheral artery disease) ([facility]) Take 1 Tablet by mouth in the morning. 100 Tablet 3 11/08/2023 Active metFORMIN HCl ER 500 MG Oral Tablet Extended Release 24 Hour (Glucophage XR)Indications:Type 2 diabetes mellitus with hemoglobin A1c goal of less than 8.0% ([facility]) TAKE 4 TABLETS BY MOUTH ONCE DAILY IN THE MORNING 360 Tablet 1 12/04/2023 Active Liraglutide 18 MG/3ML Subcutaneous Solution Pen-injector (Victoza)Indications: Type 2 diabetes mellitus with hemoglobin A1c goal of less than 8.0% ([facility]) Inject 1.8 mg under the [...] 04/28/2021 History of osteomyelitis 04/28/2021 History of Guillain-Lincoln sy ndrome due to 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 04/28/2021 [...] on file documented as of this encounter Plan of Treatment Upcoming Encounters Date Type Department Care Team (Late st Contact Info) Description 12/21/2023 10:30 AM EST Imaging Vascular Lab, [address] [place] [address] 12/21/2023 11:30 AM EST Imaging Vascular Lab, [address] [place] [address] 12/27/2023 8:00 AM EST Office Visit Pharmacy, [address] [place] [address] [place] [address] 12/27/2023 9:10 AM EST Office Visit Vascular Surgery, [address] [place] [address] Manoj Chan MD [address] [place] [address] 05/13/2024 7:20 AM EDT Office Visit Family Medicine [address] [place] [phone] Gabriele Dumas MD [address] [place] [address] [place] [address] 05/24/2024 11:00 AM EDT Office Visit Ophthalmology, [place] [address] Lester Livingston DO [address] [place] [address] Health Maintenance Due Date Last Done Comments [...] this encounter Medical Devices Implanted Type Area Merchandise Appraiser Device Identifier Shelf Expiration Date Model / Serial / Lot Filter Navalign Femoral Tulip - [id number] Implanted:Qty: 1 on 04/21/[address] [facility] [place]: Inferior Vena Cava COOK : [employer] 04/12/2013 [id number] / / [id number] Burt Acetabular Liner +4 [id number] 52mm Od Implanted:Qty: 1 on 04/22/[address] [facility] Right: Hip 03/16/2015 [id number] / / [id number] Stem [place] Por Tpr Stdoff S6 - [id number] Implanted:Qty: 1 on 04/22/[address] [facility] Right: Hip JNJ : [employer] 02/14/2020 [id number] / / [id number] Head Mtl Artic Edwardo 36mm Pl5 - [id number] Implanted:Qty: 1 on 04/22/[address] [facility] Right: Hip JNJ : [employer] 12/14/2014 [id number] / / [id number] Fem Acet [place] 300 52mm - [id number] Implanted:Qty: 1 on 04/22/[address] [facility] Right: Hip JNJ : [employer] [id number] / / [id number] Screw Selftap 3.5x55 204.855 - [id number] Implanted:Qty: 1 on 04/22/[address] [facility] Right: Hip SYNTHES 204.855 / / Screw Canc 4mm 206.065 - [id number] Implanted:Qty: 1 on 04/22/[address] [facility] Right: Hip SYNTHES 206.065 / / Screw Canc B[place] 6.5x50mm - [id number] Implanted:Qty: 1 on 04/22/[address] [facility] Right: Hip JNJ : [employer] [id number] / / [id number] Screw Canc [place] 6.5x30mm - [id number] Implanted:Qty: 1 on 04/22/[address] [facility] Right: Hip JNJ : [employer] 02/14/2020 [id number] / / [id number] Screw Selftap 3.5x55 204.855 - [id number] Implanted:Qty: 2 on 04/22/[address] [facility] Right: Hip SYNTHES 204.855 / / Screw Canc 4mm 206.065 - [id number] Implanted:Qty: 1 on 04/22/[address] [facility] Right: Hip SYNTHES 206.065 / / Screw Canc [place] 6.5x15mm - [id number] Implanted:Qty: 1 on 04/22/[address] [facility] Right: Hip JNJ : [employer] 02/14/2020 [id number] / / [id number] Lens 20.5 [id number] - [id number] - [id number] Implanted:Qty: 1 on 10/14/2020 by Lester Livingston DO at OR [facility] Right: Eye DUANE : SURGICAL 2025 [id number] / [id number] / Lens 20.0 [id number] - [id number] 086 - [id number] Implanted:Qty: 1 on 12/09/2020 by Lester Livingston DO at OR [facility] Left: Eye DUANE : SURGICAL 07/13/2025 [id number] 0 / [id number] / documented as of this encounter Additional Health Concerns Infection Onset Date Last Indicated Resolved Time Gastrointestinal Rule-Out 12/18/2023 12/18/2023 documented as of this encounter Advance Directives * Full Code (Latest Code Status on File) Date Activated Date Inactivated Comments 04/22/2010 6:35 PM 04/27/2010 9:02 PM Question Answer Comments Discussion of Advance Directives occurred with: Not Discussed Care Teams Modeling Director Relationship Specialty Start Date End Date Gabriele Dumas MD [address] [place] [address] [place] [address] PCP - General Family Medicine 06/04/21 documented as of this encounter
--- OUTSIDE RECORDS SUMMARY | 2024-03-23 11:50 | External Medical Summary ---
Author Name Unknown Address Unknown Organization K01:[facility] [place] [facility] [address] [facility] [address] Laboratory Report Ordering Provider Test Date Status MIGUELSAMILUBNA FITZPATRICKROSA ELENA 12/18/2023 10:44:41 Rochelle l Observation Date Value Abnormality Reference (Units ) Status HbA1C 12/18/2023 10:44:41 8.1 Above high normal 4. 0-5.6 (%) Final The use of HbA1c to monitor glycemic status is based on normal hemoglobin and HbA composition. This test should not be used in patients with abnormal hemoglobin that affects the half life of the red blood cell or the in vivo glycation rates. Glucose, estimated average 12/18/2023 10:44:41 186 Above high normal <126 (mg/dL) Jacob mckeon Performing Location [facility] [place] [facility] [address] [facility] [address]
--- OUTSIDE RECORDS SUMMARY | 2024-03-23 11:50 | External Medical Summary | Summary of Care ---
Author Name Unknown Organization [facility] Address [address] [place] [address] Phone [phone] Care Team Providers Care Quality Supervisor Name Role Phone Gabriele Dumas MD Primary Care Provide r Reason for Visit * Reason Onset Date Comments Appointment 12/18/2023 2 mon ret and GI appt Encounter Details Date Type Department Care Team (Late st Contact Info) Description 12/18/2023 Telephone Family [address] [phone] Gabriele Dumas MD [address] [place] [address] [place] [address] Appointment (2 mon ret and GI appt ) Allergies Active Allergy Reactions Criticality Noted Date Comments Influenza Vaccines 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 * Telephone Encounter - Regine Crowe OSA [...] 12/21/2023 10:30 AM EST Imaging Vascular Lab, [address] [place] [address] 12/21/2023 11:30 AM EST Imaging Vascular Lab, [address] [place] [address] 12/27/2023 8:00 AM EST Office Visit Pharmacy, [address] [place] [address] [place] [address] 12/27/2023 9:10 AM EST Office Visit Vascular Surgery, [facility] [address] [place] [address] Manoj Chan MD [address] [place] [address] 01/02/2024 2:00 PM EST Office Visit Gastroenterology, [facility] [address] [facility] [address] Lynnette Christian CRNP [address] [place] [address] 02/23/2024 7:20 AM EST Office Visit [address] [phone] Abida Ren CRNP [address] [place] [address] [place] [address] 05/13/2024 7:20 AM EDT Office Visit [address] [phone] Gabriele Dumas MD [address] [place] [address] [place] [address] 05/24/2024 11:00 AM EDT Office Visit OphthalmologyAri [address] [place] [address] Lester Livingston DO [address] [place] [address] Health Maintenance Due Date Last Done Comments [...] this encounter Medical Devices Implanted Type Area Mortgage Underwriter Device Identifier Shelf Expiration Date Model / Serial / Lot Filter Navalign Femoral Tulip - [id number] Implanted:Qty: 1 on 04/21/2010 [place] [facility] [place]: Inferior Vena Cava COOK : [employer] INC 04/12/2013 [id number] / / [id number] [place] Acetabular Liner +4 [id number] 52mm Od Implanted:Qty: 1 on 04/22/2010 [place] [facility] [place] Right: Hip 03/16/2015 [id number] / / [id number] Stem [place] Por Tpr Stdoff S6 - [id number] Implanted:Qty: 1 on 04/22/2010 at [place] [facility] [place] Right: Hip JNJ : [employer] 02/14/2020 [id number] / / [id number] Head Mtl Artic Edwardo 36mm Pl5 - [id number] Implanted:Qty: 1 on 04/22/2010 at [place] [facility] [place] Right: Hip JNJ : [employer] 12/14/2014 [id number] / / [id number] Fem Acet [place] 300 52mm - [id number] Implanted:Qty: 1 on 04/22/2010 at [place] [facility] [place] Right: Hip JNJ : [employer] [id number] / / [id number] Screw Selftap 3.5x55 204.855 - [id number] Implanted:Qty: 1 on 04/22/2010 at [place] [facility] [place] Right: Hip SYNTHES 204.855 / / Screw Canc 4mm 206.065 - [id number] Implanted:Qty: 1 on 04/22/2010 at [place] [facility] [place] Right: Hip SYNTHES 206.065 / / Screw Canc [place] 6.5x50mm - [id number] Implanted:Qty: 1 on 04/22/2010 at [place] [facility] [place] Right: Hip JNJ : [employer] [id number] / / [id number] Screw Canc [place] 6.5x30mm - [id number] Implanted:Qty: 1 on 04/22/2010 at [place] [facility] [place] Right: Hip JNJ : [employer] 02/14/2020 [id number] / / [id number] Screw Selftap 3.5x55 204.855 - [id number] Implanted:Qty: 2 on 04/22/2010 at [place] [facility] [place] Right: Hip SYNTHES 204.855 / / Screw Canc 4mm 206.065 - [id number] Implanted:Qty: 1 on 04/22/2010 at [place] [facility] [place] Right: Hip SYNTHES 206.065 / / Screw Canc [place] 6.5x15mm - [id number] Implanted:Qty: 1 on 04/22/2010 at [place] [facility] [place] Right: Hip JNJ : [employer] 02/14/2020 [id number] / / [id number] Lens 20.5 [id number] - [id number] - [id number] Implanted:Qty: 1 on 10/14/2020 by Lester Livingston DO at OR [facility] Right: Eye DUANE : SURGICAL 2025 [id number] / [id number] / Lens 20.0 [id number] - [id number] - [id number] Implanted:Qty: 1 on 12/09/2020 by Lester Livingston DO at OR [facility] Left: Eye DUANE : SURGICAL 07/13/2025 [id number] / [id number] / documented as of this encounter Additional Health Concerns Infection Onset Date Last Indicated Resolved Time Gastrointestinal Rule-Out 12/18/2023 12/18/2023 documented as of this encounter Advance Directives * Full Code (Latest Code Status on File) Date Activated Date Inactivated Comments 04/22/2010 6:35 PM 04/27/2010 9:02 PM Question Answer Comments Discussion of Advance Directives occurred with: Not Discussed Care Teams Quality Supervisor Relationship Specialty Start Date End Date Gabriele Dumas MD [address] [place] [address] [place] [address] PCP - General Family Medicine 06/04/21 documented as of this encounter
--- OUTSIDE RECORDS SUMMARY | 2024-03-23 11:50 | External Medical Summary ---
Author Name Unknown Address Unknown Organization K01:[facility] - [address] [place] [address] Laboratory Report Ordering Provider Test Date Status COLEEN ALMAZAN 12/18/2023 10:44:41 [place] l Observation Date Value Abnormality Reference (Units ) Status BUN 12/18/2023 10:44:41 15 6-20 (mg/dL) Final Creatinine 12/18/2023 10:44:41 0.6 0.6-1.2 (mg/dL) Final Glomerular filtration rate/1.73 sq M.predicted [Volume Rate/Area] in Serum, Plasma or Blood by Creatinine-based formula (CKD-EPI) 12/18/2023 10:44:41 >90 >=60 (mL/min) Final eGFR is calculated based on the CKD-EPI 2020 equation. Sodium 12/18/2023 10:44:41 139 135-146 (m mol/L) Final Potassium 12/18/2023 10:44:41 4.1 3.5-5.1 (m mol/L) Final Cl 12/18/2023 10:44:41 99 98-107 (mm ol/L) Final CO2 12/18/2023 10:44:41 24 22-32 (mmo l/L) Final Anion gap 12/18/2023 10:44:41 16 Above high normal 7- 15 (mmol/L) Final Glucose 12/18/2023 10:44:41 148 Above high normal 70 -120 (mg/dL) Final Calcium 12/18/2023 10:44:41 9.8 8.4-10.2 ( mg/dL) Final Performing Location [facility] - [address] [place] [address]
--- OUTSIDE RECORDS SUMMARY | 2024-03-23 11:50 | External Medical Summary | Summary of Care ---
Author Name Unknown Organization [facility] Address [address] [place] [address] Phone [phone] Care Team Providers Care Member Service Representative Name Role Phone Gabriele Dumas MD Primary Care Provide r Reason for Visit * Reason Comments Dosage Adjustment In Person (Anticoag Cl inic) Diabetes Follow-Up Encounter Details Date Type Department Care Team (Late st Contact Info) Description 11/01/2023 9:30 AM EDT Office Visit Pharmacy, [address] [place] [address] [place] [address] Type 2 diabetes mellitus with hemoglobin A1c goal of less than 8.0% ([facility])* Allergies Active Allergy Reactions Criticality Noted Date Comments Influenza Vaccines 01/18/2013 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 90 Tablet 5 04/06/2022 Active OneTouch Delica Lancets 33G Use to test blood sugars once daily DxE11.9 100 Each 3 10/04/2022 Active Naproxen 500 MG Oral Tablet (Naprosyn)Indicat ions:Pain in joint of right shoulder Take 1 Tablet by mouth 2 times a day with morning and evening meals. 14 Tablet 10/11/2022 Active Glimepiride 4 MG Oral Tablet (Amaryl)Indicatio [...] Each 07/20/2023 Active Lisinopril 40 MG Oral TabletIndications :HTN, goal below 140/90 TAKE 1 TABLET BY MOUTH IN THE MORNING 90 Tablet 2 08/08/2023 Active Aspirin EC 81 MG Oral Tablet Delayed ReleaseIndication s:PAD (peripheral artery disease) (HCC) Take 1 Tablet by mouth in the morning. 100 Tablet 3 05/18/2022 11/08/19 24 Discontinued(Ref ill) Gabapentin 100 MG Oral Capsule (Neurontin)Indica tions:Chronic bilateral low back pain, unspecified whether sciatica present Take 1 Capsule by mouth in the morning and 1 Capsule before bedtime. 180 Capsule 1 05/18/2022 11/13/19 24 Discontinued(Med ication List Clean Up) metFORMIN HCl ER 500 MG Oral Tablet Extended Release 24 Hour (Glucophage XR)Indications:Ty pe 2 diabetes mellitus with hemoglobin A1c goal of less than 8.0% (HCC) TAKE 4 TABLETS BY MOUTH ONCE DAILY IN THE MORNING 360 Tablet 3 12/26/2022 12/04/19 24 Discontinued Farhad Gaming In Vitro Strip (Glucose Blood)Indications :Type 2 diabetes mellitus with hemoglobin A1c goal of less than 8.0% (HCC) Use to test blood sugars once daily DxE11.9 100 Strip 3 05/01/2023 11/03/19 24 Discontinued(Ref ill) Pantoprazole Sodium 40 MG Oral Tablet Delayed Release (Protonix) TAKE 1 TABLET BY MOUTH IN THE MORNING 90 Tablet 1 06/14/2023 11/13/19 24 Discontinued(Med ication List Clean Up) Liraglutide 18 MG/3ML Subcutaneous Solution Pen-injector (Victoza)Indicati ons:Type 2 diabetes mellitus with hemoglobin A1c goal of less than 8.0% ([facility]) Inject 1.8 mg under the skin in the morning. 9 mL 1 09/06/2023 12/03/19 24 Discontinued Metamucil Fiber Oral Tablet Chewable Take by mouth. 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 Never true 11/12/19 23 Within the past 12 months, t he food you bought just didn't last and you didn't have money to get more. Never true 11/11/2022 Childcare Answer Date Recorded Do you feel overwhelmed with taking care of a child, family member or friend? No 11/11/2022 Does your family need help f inding childcare? (Household - for ages 0-17 years) Not on file 11/11/2022 Clothing Answer Date Recorded Have you been unable to get clothing when it was really needed? No 11/11/2022 Is your family able to get c lothes or diapers when needed? (Household - for ages 0-17 years) Not on file 11/11/2022 Personal Safety Answer Date Recorded Do you feel unsafe or have concerns for your saf ety? No 11/11/2022 Do you have concerns for you r family's safety? (Household - for ages 0-17 years) Not on file 11/11/2022 Utilities Answer Date Recorded Do you have trouble paying y our heating, water, or electric bill? No 11/11/2022 Is your family able to pay t he heat, water, or electric bill? (Household - for ages 0-17 years) Not on file 11/11/2022 Does your family have access to good internet? (Household - for ages 0-17 years) Not on file 11/11/2022 Employment Status Answer Date Recorded Are you unemployed or without regular income? No 11/11/2022 Does the household have a re gular source of income? (Household - for ages 0-17 years) Not on file 11/11/2022 Social Connections Answer Date Recorded How often do you feel lonely or isolated from th ose around you? Never 11/11/2022 Financial Resource Strain Answer Date R ecorded Do you have any trouble payi ng for your medications, or do you think you might in the future? No 11/11/2022 Does your family have troubl e paying for medicine? (Household - for ages 0-17 years) Not on file 11/11/2022 Transportation Needs Answer Date Record ed READ ONLY Do you have troubl e getting a ride to medical visits or work? Never True 11/11/2022 Does your family have a hard time getting a ride to doctors visits? (Household - for ages 0-17 years) Not on file 11/11/2022 Has lack of transportation k ept you from medical appointments, meetings, work, or from getting things needed for daily living? Check all that apply. (Adult - for ages 18 years and over) Not on file 11/11/2022 Do you (or your family) have trouble finding or paying for a ride (transportation)? (Household - for ages 0-17 years) Not on file 11/11/2022 Housing Stability Answer Date Recorded Do you currently live in a s helter or have no steady place to sleep at night? No 11/11/2022 READ ONLY Do you think you a re at risk of becoming homeless? No 11/11/2022 Does your family worry about paying for your home or becoming homeless? (Household - for ages 0-17 years) Not on file 0 11/11/2022 Are you homeless or worried that you might be in the future? (Adult - for ages 18 years and over) Not on file Are you (or your family) black eless or worried that you might be in the future? (Household - for ages 0-17 years) Not on file Food Insecurity Answer Date Recorded Do you need food for this week? No 11/11/2022 Are you able to get enough f ood for your family? (Household - for ages 0-17 years) Not on file 11/11/2022 Does your family need food t his week? (Household - for ages 0-17 years) Not on file 11/11/2022 Do you always have enough fo od for your family? (Household - for ages 0-17 years) Not on file 11/11/2022 Sex and Gender Information Value Date Recorded Sex Assigned at Male 11/11/2022 3:30 PM EDT Gender Identity Male 11/11/2022 3:30 PM EDT Sexual Orientation Straight 11/11/2022 3: 30 PM EDT Job Start Date Occupation Industry Not on file Not on file Not on file documented as of this encounter Progress Notes * Renee Shukla, [facility] - 11/01/2023 9:15 AM EDT Medication Therapy Disease Management Clinic - Diabetes Management Progress Note Reji Santos, identified by name and date of , is a 73 year old male being seen for diabetesmanagement/education. Patient presents for return diabetic visit. DIABETES: Current diabetic medications: Metformin ER 500 mg - 4 tablets in the morning Victoza 1.8mg under the skin daily (increased by PCP on 09/05) Glimepiride 4mg BID Farxiga 10mg daily eGFR > 90 05/02/2022 Target A1c < 8% Medication Injection Site: Abdomen Lifestyle: Diet: Discussed below Glucose Review/SMBG: Readings obtained from patient device Pre am 152 161 163 152 158 123 135 132 124 107 176 110 115 121 123 Average [address] 136.0769 Range 69 Hypoglycemia: Does your blood sugar go below 70 mg/dL? No Hyperglycemia symptoms present: none Recent Labs Units 10/25/23 1130 09/04/23 1046 03/17/23 0951 HEMOGLOBIN A1C - [facility] % 9.6* 9.2* 8.1* Recent Labs Units 10/25/23 1130 10/09/23 0000 09/04/23 1046 ESTIMATED GLOMERULAR FILTRATION RATE - [facility] mL/min >90 82 >90 CREATININE - [facility] mg/dL 0.7 0.97 0.7 HYPERTENSION: Patient on ACEi/ARB: yes BP Readings from Last 3 Encounters: 10/25/23 134/86 08/31/23 124/80 02/27/23 128/80 Blood pressure at goal: yes HYPERLIPIDEMIA: Recent Labs Units 03/17/23 0951 03/16/22 0849 LDL CHOLESTEROL (CALCULATED) - [facility] mg/dL 36 123 Does patient have clinical ASCVD? No, is patient LDL less than 70mg/dL? Yes HEALTH MAINTENANCE REVIEW: Health Maintenance Due Topic Date Due Pneumococcal Vaccine: 65+ Years (1 of 2 - PCV) Never done DTap/Tdap Vaccines (1 - Tdap) Never done Adult Wellness Visit Never done Depression Screening 06/04/2022 COVID-19 Vaccine ( season) Never done ASSESSMENT & PLAN: ICD-10-CM 1. Type 2 diabetes mellitus with hemoglobin A1c goal of less than 8.0% ([facility]) E11.9 Considerations: H/o foot osteo H/o GBS with flu vax Medicare ([employer]) w/ PACE Trulicity --> Victoza due to back order Goes by Imtiaz BG Readings - Blood sugars reviewed. Improvement in AM readings noted. Patient attributes to diet. Provided x4 times a day testing BG log. Encouraged to increase testing frequency. Medications - Reviewed current regimen, patient is adherent to regimen. PCP advised insulin start. However patient declines today. AM readings at goal, however will plan to further assess readings throughout the day to continue to work on achieving A1c goal. Diet, Exercise, Lifestyle - Patient attributes BG improvement to diet. States he has gotten his diet back on track. Eliminated sweets and decreased portion size. Encouraged to continue. Patient notes to significant frustration regarding delay in upcoming vascular appointment. Also notes to diarrhea which he started Metamucil fiber gummies for without relieve. Finished course of abx today. Offered sooner appointment with provider, however patient declined. Requesting PCP be made ofconcerns. Patient is agreeable to SMBG 1-3 time(s) daily. Patient aware to contact clinic if any hypoglycemia before next visit. MEDICATION CHANGES: no change Diabetic Medications: Metformin ER 500 mg - 4 tablets in the morning Victoza 1.8mg under the skin daily (increased by PCP on 09/05) Glimepiride 4mg BID Farxiga 10mg daily eGFR > 90 10/25/23 Target A1c < 8% HEALTH MAINTENANCE INTERVENTIONS: Deferred d/t time constraints FOLLOW UP: Return to clinic in 8 weeks 12/27/2023 I spent a total of 30-39 minutes (exact time 35 mins) on the date of service in preparation, delivery, and documentation of the care provided to Reji Santos excluding any time spent in the performance of separately billed services. Renee Shukla [facility] Clinical Pharmacist - Maintenance Director Medication Therapy Management Clinic 11/01/2023, 9:15 AM documented in this encounter Plan of Treatment Upcoming Encounters Date Type Department Care Team (Late st Contact Info) Description 12/18/2023 10:00 AM EST Office Visit Family Medicine [address] [place] [phone] Gabriele Dumas MD [address] [place] [address] [place] [address] 12/21/2023 10:30 AM EST Imaging Vascular Lab, [facility] [address] [facility] [place] [address] 12/21/2023 11:30 AM EST Imaging Vascular Lab, [address] [facility] [place] [address] 12/27/2023 8:00 AM EST Office Visit Pharmacy, [address] [place] [address] [place] [address] 12/27/2023 9:10 AM EST Office Visit Vascular Surgery, [facility] [address] [place] [address] Manoj Chan MD [address] [facility] [place] [address] 05/13/2024 7:20 AM EDT Office Visit Family Medicine [address] [place] [phone] Gabriele Dumas MD [address] [place] [address] [place] [address] 05/24/2024 11:00 AM EDT Office Visit Ophthalmology, [address] [place] [address] Lester Livingston DO [address] [place] [address] Health Maintenance Due Date Last Done Comments Pneumococcal Vaccine: 65+ Years (1 of 2 - PCV) 06/16/1956 DTap/Tdap Vaccines (1 - Tdap) 1968 Colonoscopy 1994 Fecal Occult Blood Test 1994 Sigmoidoscopy 1994 Adult Wellness Visit 06/16/2015 Depression Screening 06/04/2022 06/04/2021 COVID-19 Vaccine ( season) 2023 Diabetic Foot Exam 02/28/2024 02/27/2023, 0 03/16/2022, 02/20/2020, Additional history exists HbA1c 04/23/2024 10/25/2023, 08/14, 03/17/2023, Additional history exists Diabetic Eye Exam 09/20/2024 09/21/2023, , 09/21/2023, Additional history exists Albumin/Creatinine Ratio 10/24/2024 024, 03/16/2022, 04/28/2021, Additional history exists GFR 10/24/2024 10/25/2023, 09/14, 09/04/2023, Additional history exists Cologuard 06/16/2025 06/16/2022, 05/15, [...] this encounter Medical Devices Implanted Type Area Therapeutic Specialist Device Identifier Shelf Expiration Date Model / Serial / Lot Filter Navalign Femoral Tulip - [id number] Implanted:Qty: 1 on 04/21/2010 at [place] [facility] [place] Right: Inferior Vena Cava COOK : [employer] 04/12/2013 [id number] / / [id number] [place] Acetabular Liner +4 [id number] 52mm Od Implanted:Qty: 1 on 04/22/2010 at OR [facility] [place] Right: Hip 03/16/2015 1221-36-152 / / [id number] Stem [place] Por Tpr Stdoff S6 - [id number] Implanted:Qty: 1 on 04/22/2010 at OR [facility] [place] Right: Hip JNJ : [employer] 02/14/2020 [id number] / / [id number] Head Mtl Artic Edwardo 36mm Pl5 - [id number] Implanted:Qty: 1 on 04/22/2010 at OR [facility] [place] Right: Hip JNJ : [employer] 12/14/2014 [id number] / / [id number] Fem Acet [place] 300 52mm - [id number] Implanted:Qty: 1 on 04/22/2010 at OR [facility] [place] Right: Hip JNJ : [employer] [id number] / / [id number] Screw Selftap 3.5x55 204.855 - [id number] Implanted:Qty: 1 on 04/22/2010 at OR [facility] [place] Right: Hip SYNTHES 204.855 / / Screw Canc 4mm 206.065 - [id number] Implanted:Qty: 1 on 04/22/2010 at OR [facility] Right: Hip SYNTHES 206.065 / / Screw Canc [place] 6.5x50mm - [id number] Implanted:Qty: 1 on 04/22/2010 at OR [facility] Right: Hip JNJ : [employer] [id number] / / [id number] Screw Canc [place] 6.5x30mm - [id number] Implanted:Qty: 1 on 04/22/2010 at OR [facility] Right: Hip JNJ : [employer] 02/14/2020 [id number] / / [id number] Screw Selftap 3.5x55 204.855 - [id number] Implanted:Qty: 2 on 04/22/2010 at OR [facility] Right: Hip SYNTHES 204.855 / / Screw Canc 4mm 206.065 - [id number] Implanted:Qty: 1 on 04/22/2010 at OR [facility] Right: Hip SYNTHES 206.065 / / Screw Canc [place] 6.5x15mm - [id number] Implanted:Qty: 1 on 04/22/2010 at OR [facility] Right: Hip JNJ : [employer] 02/14/2020 [id number] / / [id number] Lens 20.5 [id number] - [id number] - [id number] Implanted:Qty: 1 on 10/14/2020 by Lester Livingston DO at OR [facility] Right: Eye DUANE : SURGICAL 2025 [id number] / [id number] / Lens 20.0 [id number] - [id number] - [id number] Implanted:Qty: 1 on 12/09/2020 by Lester Livingston DO at OR [facility] Left: Eye DUANE : SURGICAL 07/13/2025 [id number] / [id number] / documented as of this encounter Visit Diagnoses Diagnosis Type 2 diabetes mellitus with hemoglobin A1c goal of less than 8.0% ([facility])- Primary documented in this encounter Advance Directives * Full Code (Latest Code Status on File) Date Activated Date Inactivated Comments 04/22/2010 6:35 PM 04/27/2010 9:02 PM Question Answer Comments Discussion of Advance Directives occurred with: Not Discussed Care Teams Member Service Representative Relationship Specialty Start Date End Date Gabriele Dumas MD [address] [place] [address] [place] [address] PCP - General Family Medicine 06/04/21 documented as of this encounter
--- OUTSIDE RECORDS SUMMARY | 2024-03-23 11:50 | External Medical Summary | Summary of Care ---
Author Name Unknown Organization [facility] Address [address] [place] [address] Phone [phone] Care Team Providers Care Tailor Garment Fitter Name Role Phone Gabriele Dumas MD Primary Care Provide r Reason for Visit * Reason Comments Dosage Adjustment In Person (Anticoag Cl inic) Diabetes Follow-Up Encounter Details Date Type Department Care Team (Late st Contact Info) Description 12/26/2023 9:00 AM EST Office Visit Pharmacy, [address] [place] [address] [place] [address] Type 2 diabetes mellitus with hemoglobin A1c goal of less than 8.0% (FORM[facility])* Allergies Active Allergy Reactions Criticality Noted Date Comments 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 (statuses as of 12/26/2023) Medications Atorvastatin Calcium 40 MG Oral Tablet [...] as of this encounter (statuses as of 12/26/2023) Active Problems Problem Noted Date Diagnosed Date History of pancreatitis 11/18/2022 Chronic bilateral low back pain 05/18/2022 Acquired absence of other left toe(s) 03/16/2022 Mild nonproliferative diabet ic retinopathy of both eyes without macular edema associated with type 2 diabetes mellitus 03/16/2022 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 03/16/2022 Amputation of toe of left foot 04/28/2021 History of osteomyelitis 04/28/2021 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 04/28/2021 [...] as of this encounter (statuses as of 12/26/2023) Resolved Problems Problem Noted Date Diagnosed Date [...] as of this encounter (statuses as of 12/26/2023) Immunizations No known immunizationsdocumented as of this [...] this encounter Progress Notes * Renee Shukla, Former[facility] - 12/26/2023 8:42 AM EST Medication Therapy Disease Management Clinic [...] 8% Medication Injection Site: Abdomen Lifestyle: Diet: improved Glucose Review/SMBG: Readings obtained from patient documented BG logbook Pre am Pre Lunch Pre pm HS 136 130 124 129 112 130 144 134 135 134 138 124 130 140 134 124 114 95 134 124 130 141 137 134 130 136 124 143 124 134 118 114 Average 129 #DIV/0! 129 124 Hi 143 0 144 124 Lo 95 [address] 130.0769 0 130 124 Range 48 0 32 0 Hypoglycemia: Does your blood sugar go below 70 mg/dL? No Hyperglycemia symptoms present: none Recent Labs Units 12/18/23 1044 10/25/23 1130 09/04/23 1046 HEMOGLOBIN A1C - [facility] % 8.1* 9.6* 9.2* Recent Labs Units 12/18/23 1044 10/25/23 1130 10/09/23 0000 ESTIMATED GLOMERULAR FILTRATION RATE - [facility] mL/min >90 >90 82 CREATININE - [facility] mg/dL 0.6 0.7 0.97 HYPERTENSION: Patient on ACEi/ARB: yes BP Readings from Last 3 Encounters: 12/18/23 162/88 11/15/23 164/81 11/08/23 132/88 Blood pressure at goal: yes HYPERLIPIDEMIA: Recent [...] Adult Wellness Visit Never done COVID-19 Vaccine () Never done ASSESSMENT & PLAN: ICD-10-CM 1. Type 2 diabetes mellitus with hemoglobin A1c goal of less than 8.0% ([facility]) E11.9 Considerations: H/o foot osteo H/o GBS with flu vax Medicare ([employer]) w/ PACE Trulicity --> Victoza due to back order Goes by [facility] BG Readings - Blood sugars reviewed. Continued improvement noted as well as A1c. Reviewed with patient who attributes this to diet changes. Medications - Reviewed current regimen, patient is adherent to regimen. However notes to significant diarrhea. States it is to the point he cannot leave his house or travel without an extra set of clothes. He is scheduled to see GI later this month, however inquiring on trial off of Metformin. Lengthy discussion with patient regarding the importance of BG control. Patient aware that upon Metformin decrease, may need to look at additional medications (insulin as previously discussed). Will plan to decrease to 3 tablets daily, then 2 tablets if noticing improvement. Will watch blood sugarsclosely during this time and contact clinic if elevated. Diet, Exercise, Lifestyle - Continuing to make diet changes, specifically reducing portion sizes. Discussed upcoming holiday season and the importance of enjoying things in moderation. Patient is agreeable to SMBG 1-3 time(s) daily. Patient aware to contact clinic if any hypoglycemia before next visit. MEDICATION CHANGES: See below Diabetic Medications: TEMP DEC Metformin ER 500 mg - 3 tablets in the morning, further decrease to 2 tablets if improvement noted Victoza 1.8mg under the skin daily (increased by PCP on 09/05) Glimepiride 4mg BID Farxiga 10mg daily eGFR > 90 10/25/23 Target A1c < 8% HEALTH MAINTENANCE INTERVENTIONS: Labs: Up to Date Immunizations: Due for pneumo, tdap, covid Foot Exam: Up to Date Eye Exam: Up to Date Annual Wellness Visit: Due FOLLOW UP: Return to clinic in 5 weeks 01/30/2024 I spent a total of 30-39 minutes (exact time 35 mins) on the date of service in preparation, delivery, and documentation of the care provided to Reji Santos excluding any time spent in the performance of separately billed services. Renee Shukla [facility] Clinical Pharmacist - Behavioral Health Associate Medication Therapy Management Clinic 12/26/2023, 8:42 AM documented in this encounter Plan of Treatment Upcoming Encounters Date Type Department Care Team (Late st Contact Info) Description 12/27/2023 9:10 AM EST Office Visit Vascular Surgery, [facility] [address] [facility] [place] [address] Manoj Chan MD [address] [place] [address] 01/02/2024 2:00 PM EST Office Visit Gastroenterology, [facility] [address] [facility] [place] [address] Lynnette Christian CRNP [address] [facility] [place] [address] 01/30/2024 8:00 AM EST Office Visit Pharmacy, [address] [place] [address] [place] [address] 02/23/2024 7:20 AM EST [address] [phone] Abida Ren CRNP [address] [place] [address] [place] [address] 05/13/2024 7:20 AM EDT Office Visit [address] [place] [phone] Gabriele Dumas MD [address] [place] [address] [place] [address] 05/24/2024 11:00 AM EDT Office Visit Ophthalmology, [place] [address] [place] [address] Lester Livingston DO [address] [place] [address] Health Maintenance Due Date Last Done Comments [...] this encounter Medical Devices Implanted Type Area Human Resources Assistant Manager Device Identifier Shelf Expiration Date Model / Serial / Lot Filter Navalign Femoral Tulip - [id number] Implanted:Qty: 1 on 04/21/2010 at [place] [facility] Right: Inferior Vena Cava COOK : [employer] 04/12/2013 [id number] / / [id number] Turlock Acetabular Liner +4 [id number] 52mm Od Implanted:Qty: 1 on 04/22/2010 at [place] [facility] Right: Hip 03/16/2015 1221-36-152 / / [id number] Stem [place] Por Tpr Stdoff S6 - [id number] Implanted:Qty: 1 on 04/22/2010 at [place] [facility] Right: Hip JNJ : [employer] 02/14/2020 [id number] / / [id number] Head Mtl Artic Edwardo 36mm Pl5 - [id number] Implanted:Qty: 1 on 04/22/2010 at [place] [facility] Right: Hip JNJ : [employer] 12/14/2014 [id number] / / [id number] Fem Acet Turlock 300 52mm - [id number] Implanted:Qty: 1 on 04/22/2010 at [place] [facility] Right: Hip JNJ : [employer] [id number] / / [id number] Screw Selftap 3.5x55 204.855 - [id number] Implanted:Qty: 1 on 04/22/2010 at [facility] Right: Hip SYNTHES 204.855 / / Screw Canc 4mm 206.065 - [id number] Implanted:Qty: 1 on 04/22/2010 at [place] [facility] Right: Hip SYNTHES 206.065 / / Screw Canc Turlock 6.5x50mm - [id number] Implanted:Qty: 1 on 04/22/2010 at [place] [facility] Right: Hip JNJ : [employer] [id number] / / [id number] Screw Canc Turlock 6.5x30mm - [id number] Implanted:Qty: 1 on 04/22/2010 at [place] [facility] Right: Hip JNJ : [employer] 02/14/2020 [id number] / / [id number] Screw Selftap 3.5x55 204.855 - [id number] Implanted:Qty: 2 on 04/22/2010 at [place] [facility] Right: Hip SYNTHES 204.855 / / Screw Canc 4mm 206.065 - [id number] Implanted:Qty: 1 on 04/22/2010 at [place] [facility] Right: Hip SYNTHES 206.065 / / Screw Canc Turlock 6.5x15mm - [id number] Implanted:Qty: 1 on 04/22/2010 at [place] [facility] Right: Hip JNJ : [employer] 02/14/2020 [id number] / / [id number] Lens 20.5 [id number] - [id number] - [id number] Implanted:Qty: 1 on 10/14/2020 by Lester Livingston DO at OR [facility] Right: Eye DUANE : SURGICAL 2025 [id number] / [id number] / Lens 20.0 [id number] - [id number] - [id number] Implanted:Qty: 1 on 12/09/2020 by Lester Livingston DO at OR [facility] Left: Eye DUANE : SURGICAL 07/13/2025 [id number] / [id number] / documented as of this encounter Visit Diagnoses Diagnosis Type 2 diabetes mellitus with hemoglobin A1c goal of less than 8.0% (HCC)- Primary documented in this encounter Additional Health Concerns Infection Onset Date Last Indicated Resolved Time Gastrointestinal Rule-Out 12/18/2023 12/26/2023 documented as of this encounter Advance Directives * Full Code (Latest Code Status on File) Date Activated Date Inactivated Comments 04/22/2010 6:35 PM 04/27/2010 9:02 PM Question Answer Comments Discussion of Advance Directives occurred with: Not Discussed Care Teams Tailor Garment Fitter Relationship Specialty Start Date End Date Gabriele Dumas MD [address] [place] [address] [place] [address] PCP - General Family Medicine 06/04/21 documented as of this encounter
--- OUTSIDE RECORDS SUMMARY | 2024-03-23 11:50 | External Medical Summary | Summary of Care ---
Author Name Unknown Organization [facility] Address [address] [place] [address] Phone [phone] Care Team Providers Care Blooming Mill Supervisor Name Role Phone Gabriele Dumas MD Primary Care Provide r Reason for Visit * Reason Comments Outpatient Testing Encounter Details Date Type Department Care Team (Late st Contact Info) Description 12/26/2023 8:30 AM EST Laboratory Laboratory [address] [place] [phone] , Specimen Drop Off [address] [place] [address] Arrived Allergies Active Allergy Reactions Criticality Noted Date Comments Influenza Vaccines 01/18/2013 Guilen-Bridgeton syndrome documented as of this encounter (statuses [...] 04/28/2021 History of osteomyelitis 04/28/2021 History of Guillain-Bridgeton sy ndrome due to 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 04/28/2021 [...] 12/26/2023 9:00 AM EST Office Visit Pharmacy, [address] [place] [address] [place] [address] Medication Therapy Disease Management Clinic - Diabetes Management 12/27/2023 9:10 AM EST Office Visit Vascular Surgery, [facility] [address] [facility] [place] [address] Manoj Chan MD [address] [place] [address] 01/02/2024 2:00 PM EST Office Visit Gastroenterology, [facility] [address] [facility] [place] [address] Lynnette Christian CRNP [address] [place] [address] 02/23/2024 7:20 AM EST Office Visit Family Medicine [address] [place] [phone] Abida Ren CRNP [address] [place] [address] [place] [address] 05/13/2024 7:20 AM EDT Office Visit Family Medicine [address] [place] [phone] Gabriele Dumas MD [address] [place] [address] [place] [address] 05/24/2024 11:00 AM EDT Office Visit Ophthalmology, [place] [address] [place] [address] Lester Livingston DO [address] [place] [address] Health Maintenance Due Date Last Done Comments [...] this encounter Medical Devices Implanted Type Area Sealer Operator Device Identifier Shelf Expiration Date Model / Serial / Lot Filter Navalign Femoral Tulip - [id number] [place]planted:Qty: 1 on 04/21/[place] [facility] [place]: Inferior Vena Cava COOK : [employer] 04/12/2013 [id number] / / [id number] [place] Acetabular Liner +4 [id number] 52mm Od Implanted:Qty: 1 on 04/22/2010 [place] [facility] Right: Hip 03/16/2015 1221-36-152 / / [id number] Stem [place] Por Tpr Stdoff S6 - [id number] Implanted:Qty: 1 on 04/22/2010 at [facility] Right: Hip JNJ : [employer] 02/14/2020 [id number] / / [id number] Head Mtl Artic Edwardo 36mm Pl5 - [id number] Implanted:Qty: 1 on 04/22/2010 [place] [facility] [place]: Hip JNJ : [employer] 12/14/2014 [id number] / / [id number] Fem Acet [place] 300 52mm - [id number] Implanted:Qty: 1 on 04/22/2010 [place] [facility] [place]: Hip JNJ : [employer] [id number] / / [id number] Screw Selftap 3.5x55 204.855 - [id number] Implanted:Qty: 1 on 04/22/2010 at [facility] Right: Hip SYNTHES 204.855 / / Screw Canc 4mm 206.065 - [id number] Implanted:Qty: 1 on 04/22/2010 at [facility] Right: Hip SYNTHES 206.065 / / Screw Canc [place] 6.5x50mm - [id number] Implanted:Qty: 1 on 04/22/2010 at [facility] Right: Hip JNJ : [employer] [id number] / / [id number] Screw Canc [place] 6.5x30mm - [id number] Implanted:Qty: 1 on 04/22/2010 [place] [facility] [place]: Hip JNJ : [employer] 02/14/2020 [id number] / / [id number] Screw Selftap 3.5x55 204.855 - [id number] Implanted:Qty: 2 on 04/22/2010 [place] [facility] [place]: Hip SYNTHES 204.855 / / Screw Canc 4mm 206.065 - [id number] Implanted:Qty: 1 on 04/22/2010 at [place] [facility] Right: Hip SYNTHES 206.065 / / Screw Canc [place] 6.5x15mm - [id number] Implanted:Qty: 1 on 04/22/2010 at [place] [facility] Right: Hip JNJ : [employer] 02/14/2020 [id number] / / [id number] Lens 20.5 [id number] - [id number] 039 - [id number] Implanted:Qty: 1 on 10/14/2020 by Lester Livingston DO at OR [facility] Right: Eye DUANE : SURGICAL 2025 [id number] / [id number] / Lens 20.0 [id number] - [id number] - [id number] Implanted:Qty: 1 on 12/09/2020 by Lester Livingston DO at OR [facility] Left: Eye DUANE : SURGICAL 07/13/2025 [id number] / [id number] / documented as of this encounter Additional Health Concerns Infection Onset Date Last Indicated Resolved Time Gastrointestinal Rule-Out 12/18/2023 12/26/2023 documented as of this encounter Advance Directives * Full Code (Latest Code Status on File) Date Activated Date Inactivated Comments 04/22/2010 6:35 PM 04/27/2010 9:02 PM Question Answer Comments Discussion of Advance Directives occurred with: Not Discussed Care Teams Blooming Mill Supervisor Relationship Specialty Start Date End Date Gabriele Dumas MD [address] [place] [address] [place] [phone] PCP - General Family Medicine 06/04/21 documented as of this encounter
--- OUTSIDE RECORDS SUMMARY | 2024-03-23 11:50 | External Medical Summary | Summary of Care ---
Author Name Unknown Organization [facility] Address [address] [place] [address] Phone [phone] Care Team Providers Care Roll Forming Machine Set Up Operator Name Role Phone Gabriele Dumas MD Primary Care Provide r Reason for Visit * Reason Onset Date Comments Medication Refill 12/04/2023 Encounter Details Date Type Department Care Team (Late st Contact Info) Description 12/04/2023 Refill Family Medicine [address] [place] [address] Gabriele Dumas MD [address] [place] [address] [place] [address] Type 2 diabetes mellitus with hemoglobin A1c goal of less than 8.0% ([facility]) Allergies Active Allergy Reactions Criticality Noted Date Comments Influenza Vaccines 01/18/2013 Guilen-[place] syndrome documented as of this encounter (statuses as of 12/04/2023) Medications Medication Sig Dispensed Refills Start Date End Date Status Atorvastatin Calcium 40 MG Oral Tablet (Lipitor) Take 1 Tablet by mouth in the morning. 90 Tablet 5 04/06/2022 Active OneTouch Delica Lancets 33G Use to test blood sugars once daily DxE11.9 100 Each 3 10/04/2022 Active Naproxen 500 MG Oral Tablet (Naprosyn)Indicatio ns:Pain in joint of right shoulder Take 1 Tablet by mouth 2 times a day with morning and evening meals. 14 Tablet 10/11/2022 Active Additional Information Patient not taking.Informant: Patient, Reported on 11/15/2023 Glimepiride 4 MG Oral Tablet (Amaryl)Indications :Type 2 diabetes mellitus with hemoglobin A1c goal of less than 8.0% (HCC) Take 1 Tablet by mouth in the morning and 1 Tablet before bedtime. 180 Tablet 2 06/02/2023 Active Dapagliflozin Propanediol 10 MG Oral Tablet (Farxiga)Indication s:Type 2 diabetes mellitus with hemoglobin A1c goal of less than 8.0% (HCC) Take 1 Tablet by mouth in the morning. 90 Tablet 1 06/28/2023 Active Novofine Pen Needle 32G X 6 MM (NOVOFINE 32G PEN NEEDLE)Indications: Type 2 diabetes mellitus with hemoglobin A1c goal of less than 8.0% (HCC) Use it daily 100 Each 07/20/2023 Active Lisinopril 40 MG Oral TabletIndications:H TN, goal below 140/90 TAKE 1 TABLET BY MOUTH IN THE MORNING 90 Tablet 2 08/08/2023 Active OneTouch Verio In Vitro Strip (Glucose Blood)Indications:T ype 2 diabetes mellitus with hemoglobin A1c goal of less than 8.0% (HCC) Use to test blood sugars once daily DxE11.9 100 Strip 3 11/06/2023 Active Aspirin 81 MG Oral Tablet Delayed ReleaseIndications: PAD (peripheral artery disease) (HCC) Take 1 Tablet by mouth in the morning. 100 Tablet 3 11/08/2023 Active metFORMIN HCl ER 500 MG Oral Tablet Extended Release 24 Hour (Glucophage XR)Indications:Type 2 diabetes mellitus with hemoglobin A1c goal of less than 8.0% (HCC) TAKE 4 TABLETS BY MOUTH ONCE DAILY IN THE MORNING 360 Tablet 1 12/04/2023 Active Liraglutide 18 MG/3ML Subcutaneous Solution Pen-injector (Victoza)Indication s:Type 2 diabetes mellitus with hemoglobin A1c goal of less than 8.0% (HCC) Inject 1.8 mg under the skin in the morning. 9 mL 5 12/04/2023 Active documented as of this encounter (statuses [...] 04/28/2021 History of osteomyelitis 04/28/2021 History of Guillain-[place] sy ndrome due to 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 04/28/2021 [...] y our heating, water, or electric bill? (Adult - for ages 18 years and over) Not on file 11/13/2023 Is your family able to pay t he heat, water, or electric bill? (Household - for ages 0-17 years) Not on file 11/13/2023 Does your family have access to good internet? (Household - for ages 0-17 years) Not on file 11/13/2023 Employment Status Answer Date Recorded Are you unemployed or without regular income? No 11/11/2022 Does the household have a re gular source of income? (Household - for ages 0-17 years) Not on file 11/11/2022 Social Connections Answer Date Recorded How often do you feel lonely or isolated from those around you? (Adult - for ages 18 years and over) Not on file 11/13/2023 Financial Resource Strain Answer Date R ecorded [...] encounter Miscellaneous Notes * Telephone Encounter - Livia Gannon [facility] - 12/04/2023 1:04 PM EDTSigned Prescriptions: Disp Refills Liraglutide 18 MG/3ML Subcutaneous Solutio*9 mL 5 Sig: Inject 1.8 mg under the skin in the morning.Authorizing Provider: Juan Antonio DUMAS User: LIVIA GANNON * Telephone Encounter - Praveena Mayer [facility] - 12/04/2023 12:59 PM EDT Pending Prescriptions: Disp Refills Liraglutide 18 MG/3ML Subcutaneous Solutio*9 mL 5 Sig: Inject 1.8 mg under the skin in the morning. * Telephone Encounter - Praveena Mayer RPh - 12/04/2023 12:58 PM EDT Pending Prescriptions: Disp Refills Liraglutide 18 MG/3ML Subcutaneous Solutio*9 mL 5 Sig: Inject 1.8 mg under the skin in the morning. * Telephone Encounter - Lily Dawson PHARM Tech - 12/04/2023 12:48 PM EDT Pt requesting HIGH PRIORITY due to Pt started 1.8 mg and will be out of meds soon. Called in another 1.2 mg script then it should have beed a 1.8 mg script Pt calling in to request a dose change on their victoza. Current dose: 1.2 mg Requested dose: 1.8 mg Reason for request: as per OV with MTM Preferred pharmacy: [facility] [address] [place] [address] Patient unwilling to speak with pharmacist at this time. Routing to pharmacist pool to advise. Thank you, Lily Dawson [facility] Trace Clerk II [facility]) 12/04/2023,12:49 PM documented in this encounter Plan of Treatment Upcoming Encounters Date Type Department Care Team (Late st Contact Info) Description 12/18/2023 10:00 AM EST Office Visit Family Medicine [address] [place] [phone] Gabriele Dumas MD [address] [place] [address] [place] [address] 12/21/2023 10:30 AM EST Imaging Vascular Lab, [address] [facility] [place] [address] 12/21/2023 11:30 AM EST Imaging Vascular Lab, [address] [place] [address] 12/27/2023 8:00 AM EST Office Visit Pharmacy, [address] [place] [address] [place] [address] 12/27/2023 9:10 AM EST Office Visit Vascular Surgery, [address] [place] [address] Manoj Chan MD [address] [place] [address] 05/13/2024 7:20 AM EDT Office Visit Family Medicine [address] [place] [phone] Gabriele Dumas MD [address] [place] [address] [place] [address] 05/24/2024 11:00 AM EDT Office Visit Ophthalmology, [place] [address] [place] [address] Lester Livingston DO [address] [place] [address] Health Maintenance Due Date Last Done Comments [...] this encounter Medical Devices Implanted Type Area Flower Grower Device Identifier Shelf Expiration Date Model / Serial / Lot Filter Navalign Femoral Tulip - [id number] Implanted:Qty: 1 on 04/21/2010 at [place] [facility] Right: Inferior Vena Cava COOK : [employer] 04/12/2013 [id number] / / [id number] [place] Acetabular Liner +4 [id number] 52mm Od Implanted:Qty: 1 on 04/22/2010 at OR [facility] Right: Hip 03/16/2015 1221-36-152 / / [id number] Stem [place] Por Tpr Stdoff S6 - [id number] Implanted:Qty: 1 on 04/22/2010 at OR [facility] Right: Hip JNJ : [employer] 02/14/2020 [id number] / / [id number] Head Mtl Artic Edwardo 36mm Pl5 - [id number] Implanted:Qty: 1 on 04/22/2010 at OR [facility] Right: Hip JNJ : [employer] 12/14/2014 [id number] / / [id number] Fem Acet [place] 300 52mm - [id number] Implanted:Qty: 1 on 04/22/2010 at OR [facility] Right: Hip JNJ : [employer] [id number] / / [id number] Screw Selftap 3.5x55 204.855 - [id number] Implanted:Qty: 1 on 04/22/2010 at OR [facility] Right: Hip SYNTHES 204.855 / / Screw Canc 4mm 206.065 - [id number] Implanted:Qty: 1 on 04/22/2010 at OR [facility] Right: Hip SYNTHES 206.065 / / Screw Canc [place] 6.5x50mm - [id number] Implanted:Qty: 1 on 04/22/2010 at [place] [facility] Right: Hip JNJ : [employer] [id number] / / [id number] Screw Canc [place] 6.5x30mm - [id number] Implanted:Qty: 1 on 04/22/2010 at [place] [facility] Right: Hip JNJ : [employer] 02/14/2020 [id number] / / [id number] Screw Selftap 3.5x55 204.855 - [id number] Implanted:Qty: 2 on 04/22/2010 at OR [facility] Right: Hip SYNTHES 204.855 / / Screw Canc 4mm 206.065 - [id number] Implanted:Qty: 1 on 04/22/2010 at OR [facility] Right: Hip SYNTHES 206.065 / / Screw Canc [place] 6.5x15mm - [id number] Implanted:Qty: 1 on 04/22/2010 at [place] [facility] Right: Hip JNJ : [employer] 02/14/2020 [id number] / / [id number] Lens 20.5 [id number] - [id number] - [id number] Implanted:Qty: 1 on 10/14/2020 by Lester Livingston DO at OR [facility] Right: Eye DUANE : SURGICAL 2025 [id number] / [id number] / Lens 20.0 [id number] - [id number] 086 - [id number] Implanted:Qty: 1 on 12/09/2020 by Lester Livingston DO at OR [facility] Left: Eye DUANE : SURGICAL 07/13/2025 [id number] / [id number] / documented as of this encounter Visit Diagnoses Diagnosis Type 2 diabetes mellitus with hemoglobin A1c goal of less than 8.0% ([facility]) documented in this encounter Advance Directives * Full Code (Latest Code Status on File) Date Activated Date Inactivated Comments 04/22/2010 6:35 PM 04/27/2010 9:02 PM Question Answer Comments Discussion of Advance Directives occurred with: Not Discussed Care Teams Roll Forming Machine Set Up Operator Relationship Specialty Start Date End Date Gabriele Dumas MD [address] [place] [address] [place] [address] PCP - General Family Medicine 06/04/21 documented as of this encounter
--- OUTSIDE RECORDS SUMMARY | 2024-03-23 11:50 | External Medical Summary | Summary of Care ---
Author Name Unknown Organization [facility] Address [address] [place] [address] Phone [phone] Care Team Providers Care Square Cutter Name Role Phone Gabriele Dumas MD Primary Care Provide r Reason for Visit * Reason Comments eRx-Medication Refill Encounter Details Date Type Department Care Team (Late st Contact Info) Description 12/01/2023 Refill Family Medicine [address] [phone] Gabriele Dumas MD [address] [place] [address] [place] [phone] Type 2 diabetes mellitus with hemoglobin A1c goal of less than 8.0% ([facility]) Allergies Active Allergy Reactions Criticality Noted Date Comments Influenza Vaccines 01/18/2013 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 90 Tablet 5 04/06/19 23 Active OneTouch Delica Lancets 33G Use to test blood sugars once daily DxE11.9 100 Each 3 10/05/19 23 Active Naproxen 500 MG Oral Tablet (Naprosyn)Indica tions:Pain in joint of right shoulder Take 1 Tablet by mouth 2 times a day with morning and evening meals. 14 Tablet 10/12/19 23 Active Additional Information Patient not taking.Informant: Patient, Reported on 11/15/2023 Glimepiride 4 MG Oral Tablet (Amaryl)Indicati ons:Type 2 diabetes mellitus with hemoglobin A1c goal of less than 8.0% (HCC) Take 1 Tablet by mouth in the morning and 1 Tablet before bedtime. 180 Tablet 2 06/02/19 24 Active Dapagliflozin Propanediol 10 MG Oral Tablet (Farxiga)Indicat ions:Type 2 diabetes mellitus with hemoglobin A1c goal of less than 8.0% (HCC) Take 1 Tablet by mouth in the morning. 90 Tablet 1 06/28/19 24 Active Novofine Pen Needle 32G X [...] DAILY IN THE MORNING 360 Tablet 3 12/27/19 23 024 Discontinued Liraglutide 18 MG/3ML Subcutaneous Solution Pen-injector (Victoza)Indicat ions:Type 2 diabetes mellitus with hemoglobin A1c goal of less than 8.0% (HCC) Inject 1.8 mg under the skin in the morning. 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 Informedpt that RX is available at their pharmacy. Pt verbalized understanding and stated they will check with their pharmacy regarding this medication. Thank you, Stacie Chavez Information Systems Director I [facility] ([facility]) 12/04/2023,12:04 PM * Telephone Encounter - Livia Gannon [facility] - 12/03/2023 9:11 AM EDTSigned Prescriptions: Disp Refills Victoza 18 MG/3ML Subcutaneous Solution Pe*9 mL 5 Sig: INJECT 1.2MG SUBCUTANEOUSLY IN THE MORNING DAILYAuthorizing Provider: Juan Antonio DUMAS User: LIVIA GANNON * Telephone Encounter - Livia Gannon [facility] - 12/03/2023 9:09 AM EDT Patient managed by MTM Per last visit, no med chagnes Refill authorized Thank You, Livia Gannon [facility] Clinical Pharmacist [facility] ([facility]) [phone] 12/03/2023, 9:11 AM documented in this encounter Plan of Treatment Upcoming Encounters Date Type Department Care Team (Late st Contact Info) Description 12/18/2023 10:00 AM EST Office Visit Family Medicine [address] [place] [address] Gabriele Dumas MD [address] [place] [address] [place] [address] 12/21/2023 10:30 AM EST Imaging Vascular Lab, [address] [place] [address] 12/21/2023 11:30 AM EST Imaging Vascular Lab, [address] [facility] [place] [address] 12/27/2023 8:00 AM EST Office Visit Pharmacy, [address] [place] [address] [place] [address] 12/27/2023 9:10 AM EST Office Visit Vascular Surgery, [facility] [address] [facility] [place] [address] Manoj Chan MD [address] [facility] [place] [address] 05/13/2024 7:20 AM EDT Office Visit Family Medicine [address] [place] [phone] Gabriele Dumas MD [address] [place] [address] [place] [address] 05/24/2024 11:00 AM EDT Office Visit Ophthalmology, [place] [address] [place] [address] Lester Livingston DO [address] [place] [address] Health Maintenance Due Date Last Done Comments Pneumococcal Vaccine: 65+ Years (1 of 2 - PCV) 06/16/1956 DTap/Tdap Vaccines (1 - Tdap) 1968 Colonoscopy 1994 Fecal Occult Blood Test 1994 Sigmoidoscopy 1994 Adult Wellness Visit 06/16/2015 Depression Screening 06/04/2022 06/04/2021 COVID-19 Vaccine ( season) 2023 Diabetic Foot Exam 02/28/2024 02/27/2023, 0 03/16/2022, 02/20/2020, Additional history exists HbA1c 04/23/2024 10/25/2023, 0703/2023, 03/17/2023, Additional history exists Diabetic Eye Exam [...] this encounter Medical Devices Implanted Type Area Parasitologist Device Identifier Shelf Expiration Date Model / Serial / Lot Filter Navalign Femoral Tulip - [id number] Implanted:Qty: 1 on 04/21/2010 at [place] [facility] Right: Inferior Vena Cava COOK : [employer] 04/12/2013 [id number] / / [id number] [place] Acetabular Liner +4 [id number] 52mm Od Implanted:Qty: 1 on 04/22/2010 at [place] [facility] Right: Hip 03/16/2015 1221-36-152 / / [id number] Stem [place] Por Tpr Stdoff S6 - [id number] Implanted:Qty: 1 on 04/22/2010 at [place] [facility] Right: Hip JNJ : [employer] 02/14/2020 [id number] / / [id number] Head Mtl Artic Edwardo 36mm Pl5 - [id number] Implanted:Qty: 1 on 04/22/2010 at [place] [facility] Right: Hip JNJ : [employer] 12/14/2014 [id number] / / [id number] Fem Acet [place] 300 52mm - [id number] Implanted:Qty: 1 on 04/22/2010 at [place] [facility] Right: Hip JNJ : [employer] [id number] / / [id number] Screw Selftap 3.5x55 204.855 - [id number] Implanted:Qty: 1 on 04/22/2010 at [place] [facility] Right: Hip SYNTHES 204.855 / / Screw Canc 4mm 206.065 - [id number] Implanted:Qty: 1 on 04/22/2010 at [place] [facility] Right: Hip SYNTHES 206.065 / / Screw Canc [place] 6.5x50mm - [id number] Implanted:Qty: 1 on 04/22/2010 at [place] [facility] Right: Hip JNJ : [employer] [id number] / / [id number] Screw Canc [place] 6.5x30mm - [id number] Implanted:Qty: 1 on 04/22/2010 at [place] [facility] Right: Hip JNJ : [employer] 02/14/2020 [id number] / / [id number] Screw Selftap 3.5x55 204.855 - [id number] Implanted:Qty: 2 on 04/22/2010 at [place] [facility] Right: Hip SYNTHES 204.855 / / Screw Canc 4mm 206.065 - [id number] Implanted:Qty: 1 on 04/22/2010 at [place] [facility] Right: Hip SYNTHES 206.065 / / Screw Canc [place] 6.5x15mm - [id number] Implanted:Qty: 1 on 04/22/2010 at [place] [facility] Right: Hip JNJ : [employer] 02/14/2020 [id number] / / [id number] Lens 20.5 [id number] - [id number] 039 - [id number] Implanted:Qty: 1 on 10/14/2020 by Lester Livingston DO at OR [facility] Right: Eye DUANE : SURGICAL 2025 [id number] 5 / [id number] / Lens 20.0 [id number] - [id number] 086 - [id number] Implanted:Qty: 1 on 12/09/2020 by Lester Livingston DO at OR [facility] Left: Eye DUANE : SURGICAL 07/13/2025 [id number] 0 / [id number] / documented as of this encounter Visit Diagnoses Diagnosis Type 2 diabetes mellitus with hemoglobin A1c goal of less than 8.0% ([facility]) documented in this encounter Advance Directives * Full Code (Latest Code Status on File) Date Activated Date Inactivated Comments 04/22/2010 6:35 PM 04/27/2010 9:02 PM Question Answer Comments Discussion of Advance Directives occurred with: Not Discussed Care Teams Square Cutter Relationship Specialty Start Date End Date Gabriele Dumas MD [address] [place] [address] [place] [address] PCP - General Family Medicine 06/04/21 documented as of this encounter
--- OUTSIDE RECORDS SUMMARY | 2024-03-23 11:50 | External Medical Summary | Summary of Care ---
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 (statuses as of 12/20/2023) Medications Medication Sig Dispensed Refills Start Date [...] hemoglobin A1c goal of less than 8.0% ([facility]) Use it daily 100 Each 07/20/2023 Active Lisinopril 40 MG Oral TabletIndications:HTN , goal below 140/90 TAKE 1 TABLET BY MOUTH IN THE MORNING 90 Tablet 2 08/08/2023 Active OneTouch Verio In Vitro Strip (Glucose Blood)Indications:Typ e 2 diabetes mellitus with hemoglobin A1c goal of less than 8.0% ([facility]) Use to test blood sugars once daily DxE11.9 100 Strip 3 11/06/2023 Active Aspirin 81 MG Oral Tablet Delayed ReleaseIndications:PA D (peripheral artery disease) ([facility]) Take 1 Tablet by mouth in the morning. 100 Tablet 3 11/08/2023 Active metFORMIN HCl ER 500 MG Oral Tablet Extended Release 24 Hour (Glucophage XR)Indications:Type 2 diabetes mellitus with hemoglobin A1c goal of less than 8.0% ([facility]) TAKE 4 TABLETS BY MOUTH ONCE DAILY IN THE MORNING 360 Tablet 1 12/04/2023 Active Liraglutide 18 MG/3ML Subcutaneous Solution Pen-injector (Victoza)Indications: Type 2 diabetes mellitus with hemoglobin A1c goal of less than 8.0% ([facility]) Inject 1.8 mg under the skin in the morning. 9 mL 5 12/04/2023 Active amLODIPine Besylate 5 MG Oral Tablet (Norvasc)Indications: HTN, goal below 140/90 Take 1 Tablet by mouth in the morning. 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 04/28/2021 [...] as of this encounter (statuses as of 12/20/2023) Resolved Problems Problem Noted Date Diagnosed Date [...] as of this encounter (statuses as of 12/20/2023) Immunizations No known immunizationsdocumented as of this [...] 12/21/2023 10:30 AM EST [facility] [address] 12/21/2023 11:30 AM EST [facility], [address] [address] 12/27/2023 8:00 AM EST Office Visit Pharmacy, [address] [place] [address] [place] [address] 12/27/2023 9:10 AM EST Office Visit Vascular Surgery, [address] [place] [address] Manoj Chan MD [address] [place] [address] 01/02/2024 2:00 PM EST Office Visit Gastroenterology, [address] [place] [address] Lynnette Christian CRNP [address] [facility] [place] [address] 02/23/2024 7:20 AM EST Office Visit Family [address] [place] [phone] Abida Ren CRNP [address] [place] [address] [place] [phone] 05/13/2024 7:20 AM EDT Office Visit Family [address] [place] [phone] Gabriele Dumas MD [address] [place] [address] [place] [phone] 05/24/2024 11:00 AM EDT Office Visit Ophthalmology, [address] [place] [address] Lester Livingston DO [address] [place] [address] [address] Health Maintenance Due Date Last Done Comments [...] this encounter Medical Devices Implanted Type Area Retention Representative Device Identifier Shelf Expiration Date Model / Serial / Lot Filter Navalign Femoral Tulip - [id number] Implanted:Qty: 1 on 04/21/2010 at OR [facility] Right: Inferior Vena Cava [employer] : [employer] 04/12/2013 [id number] / / [id number] Drury Acetabular Liner +[id number] 52mm Od Implanted:Qty: 1 on 04/22/2010 at OR [facility] Right: Hip 03/16/2015 [id number] / / [id number] Stem Platte Por Tpr Stdoff S6 - [id number] Implanted:Qty: 1 on 04/22/2010 at OR [facility] Right: Hip JNJ : [facility] 02/14/2020 [id number] / / [id number] Head Mtl Artic Edwardo 36mm Pl5 - [id number] Implanted:Qty: 1 on 04/22/2010 at OR [facility] Right: Hip JNJ : [employer] 12/14/2014 [id number] / / [id number] Fem Acet Drury 300 52mm - [id number] Implanted:Qty: 1 on 04/22/2010 at OR [facility] Right: Hip JNJ : [employer] [id number] / / [id number] Screw Selftap 3.5x55 204.855 - [id number] Implanted:Qty: 1 on 04/22/2010 at OR [facility] Right: Hip SYNTHES 204.855 / / Screw Canc 4mm 206.065 - [id number] Implanted:Qty: 1 on 04/22/2010 at [facility] Right: Hip SYNTHES 206.065 / / Screw Canc Drury 6.5x50mm - [id number] Implanted:Qty: 1 on 04/22/2010 at [facility] Right: Hip JNJ : [employer] [id number] / / [id number] Screw Canc Drury 6.5x30mm - [id number] Implanted:Qty: 1 on 04/22/2010 at OR [facility] Right: Hip JNJ : [employer] 02/14/2020 [id number] / / [id number] Screw Selftap 3.5x55 204.855 - [id number] Implanted:Qty: 2 on 04/22/2010 at OR [facility] Right: Hip SYNTHES 204.855 / / Screw Canc 4mm 206.065 - [id number] Implanted:Qty: 1 on 04/22/2010 at OR [facility] Right: Hip SYNTHES 206.065 / / Screw Canc Drury 6.5x15mm - [id number] Implanted:Qty: 1 on 04/22/2010 at OR [facility] Right: Hip JNJ : [employer] 02/14/2020 [id number] / / [id number] Lens 20.5 [id number] - [id number] - [id number] Implanted:Qty: 1 on 10/14/2020 by Lester Livingston DO at OR [facility] Right: Eye DUANE : SURGICAL 2025 [id number] / [id number] / Lens 20.0 [id number] - [id number] - [id number] Implanted:Qty: 1 on 12/09/2020 by Lester Livingston DO at OR [facility] Left: Eye DUANE : SURGICAL 07/13/2025 [id number] / [id number] / documented as of this encounter Procedures Procedure Name Priority Date/Time Associated Diagnosis Comments RADIOLOGY SCANNED RESULT 12/18/2023 documented in this encounter Results * RADIOLOGY SCANNED RESULT (12/18/2023) 12/18/2023 No Physician Data Unknown DIAGNOSTIC RAD IOLOGY SERVICES documented in this encounter Additional Health Concerns Infection Onset Date Last Indicated Resolved Time Gastrointestinal Rule-Out 12/18/2023 12/18/2023 documented as of this encounter Advance Directives * Full Code (Latest Code Status on File) Date Activated Date Inactivated Comments 04/22/2010 6:35 PM 04/27/2010 9:02 PM Question Answer Comments Discussion of Advance Directives occurred with: Not Discussed Care Teams Education Supervisor Relationship Specialty Start Date End Date Gabriele Dumas MD [address] [place] [address] [place] [phone] PCP - General Family Medicine 06/04/21 documented as of this encounter
--- OUTSIDE RECORDS SUMMARY | 2024-03-23 11:51 | External Medical Summary | Summary of Care ---
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 to have a over the road driver to take you home whether you [...] sure, contact your primary care physician, your commercial loan processor, or your surgeon to check if this [...] request to speak withthe patient advocate line. [facility]: Contact # [phone] Directions to Surgical Suite in from the Ceasar Entrance The Surgical Waiting Room can be found in the Lobby of [facility]. Enter through Main Lobby Entrance and the Waiting Room is directly [...] Suite from the Parking Garage Enter the [facility] lobby and proceed down the stone to the left. At the end of the stone, turn right. Continue down the long hallway to the main [place] Lobby. The Surgical Waiting Room will be on your Right. Proceed to check in and give them your Name. THANK YOU FOR CHOOSING [facility]! Patient identified by: name/birthdate Person taught: Patient Kelby case procedure confirmed with surgical consent Laterality confirmed as Right Surgery date at time of Pre-Surgery Center Encounter: 11/15/23 What procedure is patient having? Left leg angiogram, possible angioplasty, possible stent procedure/placement In an emergency, is patient willing to accept blood products or blood transfusion? Not asked Do you need to place a blood bank order? No Anesthesia consent pool notified? N/A Anesthesia evaluation requested per case documentation? No Preop Evaluation Requested? No PATIENT EDUCATION SCREENING Person taught: Patient Motivation Level: Asks Questions and Eager to Learn Language Barrier: No Physical Barrier: N/A METHOD: Lecture-telephone interview Patient Preferred Learning Methods: Lecture-Telephone interview Health History interview completed, questions answered, and the following patient instructions provided via telephone interview: Preoperative bathing instructions General preoperative instructions Medication instructions NPO instructions OUTCOME: State / Describe / Explain Margaux Santos RN documented in this encounter OR Notes * OR Surgeon - Manoj Chan MD - 11/15/2023 1:09 PM EDT [facility] [address] [facility] [place] [address] OPERATIVE REPORT Name: Reji Santos Date: 11/15/2023 Time: 1:09 PM Location: [place] [facility] [place]: Vascular Surgery Date of Operation: 11/15/2023 Pre-op Diagnosis: Right lower extremity peripheral arterial disease and critical limb ischemia Post-op Diagnosis: Same. Surgeon: Seng Chan MD Assistants: Chelsea Aguilar MD and Robin Whaley MD Anesthesia: Monitored local anesthesia with sedation Operation: Abdominal aortogram Right lower extremity angiogram Angioplasty of the right peroneal artery (3 mm x 40 mm balloon) Findings: Aorta iliac and right femoral popliteal system is patent with mild atherosclerotic disease. The right AT, PT, and peroneal are occluded with reconstitution of the peroneal via collaterals. Specimen and Disposition: None Estimated Blood Loss: 5 ml Fluids: 600 mL crystalloid Urine Output: None Drains/Implants: None Complications: None Postoperative Condition: Stable Indications and History: Reji Santos presents with peripheral arterial disease and critical limb ischemia. The plan is toproceed with angiography and revascularization. The patient has a history of ulcers. The patient has had recent vascular labs confirming the extent of the severe vascular disease mandating this intervention but no recent angiography and thus the plan is for angiography first and thenimmediate intervention based upon the results of the angiogram. Description of Operation: The patient was identified by name (Reji Santos), MRN, and date of , and the procedure verified. In the operating room, a Time Out was held and the above information confirmed. After satisfactory anesthesia, the bilateral groins were prepped and draped in the usual sterile fashion. Following the administration of satisfactory anesthesia, the left common femoral artery was accessed using a micropuncture kit needle and ultrasound guidance. After up-sizing from the micropuncture needle to the 4 Dutch introducer, a wire was threaded into the abdominal aorta and a 5 Dutch sheathplaced. A marker flush catheter was then threaded over the wire into the abdominal aorta. An abdominal aortogram was performed. Findings are detailed above. The catheter was then advanced over the aortic bifurcation and into the contralateral common femoral artery. Right lower extremity angiogram and runoff were performed. Findings are detailed above. At this point, the patient was systemically heparinized and the initial access upsized to a 5 Dutch sheath. The occluded right peroneal artery was crossed with a glide guidewire and quick cross catheter. Thelesion underwent angioplasty using a 3 mm angioplasty balloon. Follow-up imaging revealed a satisfactory result. Satisfied with the completion angiography, guidewire, catheter and sheath were removed. Hemostasis at the femoral access site was achieved with a Mynx device. Heparin was reversed with protamine. Hemostasis was good. Sponge count and needle counts were correct. The patient was transported in stable condition to the Recovery Room. Attestation: I was present and scrubbed for the entire procedure documented in this encounter Miscellaneous Notes * Progress Notes - Non-Billable - Waldo Locke MD - 11/15/2023 2:10 PM EDT PROGRESS NOTE - Vascular Surgery [facility] [address] Name: Reji Santos Location: [place] [facility] Date: 11/15/2023 Time: 2:11 PM DIAGNOSIS: Right lower extremity peripheral arterial disease and critical limb ischemia PROCEDURE: Abdominal aortogram Right lower extremity angiogram Angioplasty of the right peroneal artery (3 mm x 40 mm balloon) DATE OF SURGERY: 11/15/2023 POST OP DAY: 0 - POC SUBJECTIVE: Reji Santos is doing well post-op. Pain is well-controlled. No n/v, chest pain, or shortness of breath. Feels well with minimal pain OBJECTIVE: Physical Exam: BP: 159 mmHg/109 mmHg (11/15/23 1400) Pulse: 62 (11/15/23 1400) Resp: 20 (11/15/23 1400) Temp: 36.11 C (11/15/23 1315) Temp Summary: Temp Min: 36 C (96.8 F) Max: 36.1 C (97 F) SpO2: 97 % (11/15/23 1400) O2 flow rate: Supplemental O2 Delivery: Room Air, None (11/15/23 1400) Constitutional: no acute distress, appropriate mood HEENT: normocephalic, atraumatic, sclera and conjunctiva normal trachea midline CV: warm and well perfused Chest: symmetric and normal respiratory effort Abdomen: soft, non distended, no guarding or rebound. Appropriately tender to palpation Surgical site: left femoral access site clean, with no swelling Extremities: no edema, no cyanosis Skin: warm, dry Neuro: alert, conversant, motor function is grossly intact Extremities: DP and PT signals found bilaterally. LABS: Labs reviewed as indicated below: IMAGING: No imaging results in the last 24 hours IMPRESSION: Principal Problem: PAD (peripheral artery disease) (HCC) Resolved Problems: * No resolved hospital problems. * Reji Santos is a 73 year old male with PVD s/p angiogram and angioplasty doing very well. PLAN: -Plan to discharge patient to home -Patient on Aspirin 81mg - Follow up scheduled in clinic. documented in this encounter Plan of Treatment Upcoming Encounters Date Type Department Care Team (Late st Contact Info) Description 12/18/2023 10:00 AM EST Office Visit Family Medicine [address] [place] [phone] Gabriele Dumas MD [address] [place] [address] [place] [address] 12/21/2023 10:30 AM EST Imaging Vascular Lab, [facility] 2nd [facility], [address] [place] [address] 12/21/2023 11:30 AM EST Imaging Vascular Lab, [facility] [address] [place] [address] 12/27/2023 8:00 AM EST Office Visit Pharmacy, [address] [place] [address] [place] [address] 12/27/2023 9:10 AM EST Office Visit Vascular Surgery, [address] [place] [address] Manoj Chan MD [address] [place] [address] 05/13/2024 7:20 AM EDT Office Visit Family Medicine [address] [place] [phone] Gabriele Dumas MD [address] [place] [address] [place] [address] 05/23/2024 9:30 AM EDT Office Visit Ophthalmology, [address] [place] [address] Lester Livingston DO [facility] [address] Scheduled Orders Name Type Priority Associated Diagnoses Orde r Schedule EKG EKG Routine Pre-op testing One Time for 1 Occurrences starting 11/15/2023 until 11/15/2023 GLUCOSE METER, POINT OF CARE (COMMUNICATION ORDER) Point of Care Testing STAT Perform Now for 1 Occurrences starting 11/15/2023 until 11/15/2023 Health Maintenance Due Date Last Done Comments [...] this encounter Medical Devices Implanted Type Area [employer] Coxswain Device Identifier Shelf Expiration Date Model / Serial / Lot Filter Navalign Femoral Tulip - [id number] Implanted:Qty: 1 on 04/21/[address] [facility] Right: Inferior Vena Cava COOK : [employer] 04/12/2013 [id number] / / [id number] [place] Acetabular Liner +4 [id number] 52mm Od Implanted:Qty: 1 on 04/22/[address] [facility] Right: Hip 03/16/2015 [id number] / / [id number] Stem Barnard Por Tpr Stdoff S6 - [id number] Implanted:Qty: 1 on 04/22/[address] [facility] Right: Hip JNJ : [employer] 02/14/2020 [id number] / / [id number] Head Mtl Artic Edwardo 36mm Pl5 - [id number] Implanted:Qty: 1 on 04/22/[address] [facility] Right: Hip JNJ : [employer] 12/14/2014 [id number] / / [id number] Fem Acet [place] 300 52mm - [id number] Implanted:Qty: 1 on 04/22/[address] [facility] Right: Hip JNJ : [employer] [id number] / / [id number] Screw Selftap 3.5x55 204.855 - [id number] Implanted:Qty: 1 on 04/22/[address] [facility] Right: Hip SYNTHES 204.855 / / Screw Canc 4mm 206.065 - [id number] Implanted:Qty: 1 on 04/22/[address] [facility] Right: Hip SYNTHES 206.065 / / Screw Canc [place] 6.5x50mm - [id number] Implanted:Qty: 1 on 04/22/[address] [facility] Right: Hip JNJ : [employer] [id number] / / [id number] Screw Canc [place] 6.5x30mm - [id number] Implanted:Qty: 1 on 04/22/[address] [facility] [place]: Hip JNJ : [employer] 02/14/2020 [id number] / / [id number] Screw Selftap 3.5x55 204.855 - [id number] Implanted:Qty: 2 on 04/22/[address] [facility] [place]: Hip SYNTHES 204.855 / / Screw Canc 4mm 206.065 - [id number] Implanted:Qty: 1 on 04/22/[address] [facility] Right: Hip SYNTHES 206.065 / / Screw Canc [place] 6.5x15mm - [id number] Implanted:Qty: 1 on 04/22/[address] [facility] [place]: Hip JNJ : [employer] 02/14/2020 [id number] / / [id number] Lens 20.5 [id number] - [id number] - [id number] Implanted:Qty: 1 on 10/14/2020 by Ensor, Lester M, DO at OR [facility] Right: Eye DUANE : SURGICAL 2025 [id number] / [id number] / Lens 20.0 [id number] - [id number] 086 - [id number] Implanted:Qty: 1 on 12/09/2020 by Lester Livingston, DO at OR [facility] Left: Eye DUANE : SURGICAL 07/13/2025 [id number] / [id number] / documented as of this encounter Procedures Procedure Name Priority Date/Time Associated Diagnosis Comments VASC PROCEDURE IN VASCULAR ANGIO SUITE Routine 11/15/2023 1:31 PM EDT GLUCOSE METER, POINT OF CARE KATALINA 11/15/2023 11:10 AM EDT documented in this encounter Results * VASC PROCEDURE IN VASCULAR ANGIO SUITE (11/15/2023 1:31 PM EDT) Narrative Scheduling, Silent - 11/15/2023 1:31 PM EDT This procedure will not be read by a Radiologist. Please see operative note. Manoj Chan MD RAD SPECIAL PROCEDU RES * GLUCOSE METER, POINT OF CARE (11/15/2023 11:10 AM EDT) GLUCOSE - POCT 111 70 - 120 mg/dL 11/15/2023 11:12 AM EDT [facility] Art Loft Blood Whole blood specimen / Unknown 11/15/2023 11:10 AM EDT 11/15/2023 11:12 AM EDT Manoj Chan MD LAB POINT OF CARE T EST DOCKED DEVICE UNSOLICITED RESULTS [facility] [address] [place] [address] documented in this encounter Visit Diagnoses Diagnosis PAD (peripheral artery disease) (HCC)- Primary Peripheral vascular disease, unspecified PAD (peripheral artery disease) (HCC) Peripheral vascular disease, unspecified Pre-op testing Preoperative examination, unspecified documented in this encounter Administered Medications Inactive Administered Medications - up to 3 most recent administrations Medication Order MAR Action Action Date Dose Rate Site Acetaminophen (Tylenol) tab 975 mg 975 mg, Oral, PREOP, First dose on Mon11/15/23 at 1115, Last dose on Mon11/15/23 at 1115, For 1 dose, Maximum 4 g acetaminophen/day. Avoid in patients with severe hepatic impairment or severe active liver disease. Administer 60 minutes prior to OR., Pre-Op Given 11/15/2023 11:18 AM EDT 975 mg isolyte-S pH 7.4 infusion Intravenous, at 25 mL/hr, Plasma-LYTE 148, isolyte-S, and isolyte-S pH 7.4 are considered equivalent - including for MAR barcode scanning., CONTINUOUS, Starting on Mon11/15/23 at 1115, Until Mon11/15/23 at 2105, Pre-Op New Bag 11/15/2023 11:28 AM EDT Continue from Pre-Op 11/15/2023 11:22 AM EDT 25 mL/hr New Bag 11/15/2023 11:18 AM EDT 25 mL/hr lidocaine 1 % inj 1 mg 1 mg (0.1 mL), Percutaneous, ONCE PRN Other, Difficult IV starts requiring > 20 guage catheter and/ or by patient request, Starting on Mon11/15/23 at 1038, Until Mon11/15/23 at 1118, For 1 dose, Pre-Op Given 11/15/2023 11:18 AM EDT 1 mg documented in this encounter Active and Recently Administered Medications Times are shown in EDT. Scheduled Medication Order 11/13/2023 11/14/2023 11/15/2023 Acetaminophen (Tylenol) tab 975 mg (COMPLETED) 975 mg, Oral, PREOP, First dose on Mon11/15/23 at 1115, Last dose on Mon11/15/23 at 1115, For 1 dose, Maximum 4 g acetaminophen/day. Avoid in patients with severe hepatic impairment or severe active liver disease. Administer 60 minutes prior to OR., Pre-Op 1118 (Given - Provid er: Amanda Dunham RN) ceFAZolin in dextrose (Ancef) ivpb 2 g (COMPLETED) 2 g, IV Piggyback, PREOP, 1 dose, First dose on Mon11/15/23 at 1115, Administer 60 minutes prior to skin incision, Pre-Op 1128 (Given - Provid er: EZEKIEL Castaneda) chlorhexidine gluconate cloth 2 % pad 1 Pad 1 Pad, External, PREOP, First dose on Mon11/15/23 at 1115, Last dose on Mon11/15/23 at 1115, For 1 dose, Cleanse surgical site area immediately before transferring intra-op, Pre-Op 1115 (Due) Continuous Medication Order 11/13/2023 11/14/2023 11/15/2023 isolyte-S pH 7.4 infusion Intravenous, at 25 mL/hr, Plasma-LYTE 148, isolyte-S, and isolyte-S pH 7.4 are considered equivalent - including for MAR barcode scanning., CONTINUOUS, Starting on Mon11/15/23 at 1115, Until Mon11/15/23 at 2105, Pre-Op 1118 (New Bag - Prov ider: Amanda Dunham RN)1122 (Continue from Pre-Op - Provider: EZEKIEL Castaneda)1127 (Paused - Provider: EZEKIEL Castaneda - Comment: Switch to gravity)1128 (New Bag - Provider: EZEKIEL Castaneda)1301 (Anes Intra-Op Fluid - Provider: Dana James CRNA)1320 (Anes Intra-Op Fluid - Provider: Dana James CRNA) PRN Medication Order 11/13/2023 11/14/2023 11/15/2023 bupivacaine HCl 50 mL, lidocaine 1 % 50 mL inj (CANCELED) ONCE PRN INTRA PROCEDURE, Starting on Mon11/15/23 at 1258, Until Mon11/15/23 at 1311, Intra-Op 1258 (Given - Provid er: Chelsea Aguilar MD - Comment: Local injetion surgical site) hEParin 5,000 Units in NSS 500 mL infusion (CANCELED) ONCE PRN INTRA PROCEDURE, Starting on Mon11/15/23 at 1147, Until Mon11/15/23 at 1311, Intra-Op 1147 (Given - Provid er: Chelsea Aguilar MD) Iopamidol (Isovue M 300) inj (CANCELED) ONCE PRN INTRA PROCEDURE, Starting on Mon11/15/23 at 1259, Until Mon11/15/23 at 1311, Intra-Op 1259 (Given - Provid er: Manoj Chan MD - Comment: Intra arterial) lidocaine 1 % inj 1 mg (COMPLETED) 1 mg (0.1 mL), Percutaneous, ONCE PRN Other, Difficult IV starts requiring > 20 guage catheter and/ or by patient request, Starting on Mon11/15/23 at 1038, Until Mon11/15/23 at 1118, For 1 dose, Pre-Op 1118 (Given - Provid er: Amanda Dunham RN) documented in this encounter Advance Directives * Full Code (Latest Code Status on File) Date Activated Date Inactivated Comments 04/22/2010 6:35 PM 04/27/2010 9:02 PM Question Answer Comments Discussion of Advance Directives occurred with: Not Discussed Care Teams Loans Officer Relationship Specialty Start Date End Date Gabriele Dumas MD [address] [place] [address] [place] [phone] PCP - General Family Medicine 06/04/21 documented as of this encounter
--- OUTSIDE RECORDS SUMMARY | 2024-03-23 11:51 | External Medical Summary | Summary of Care ---
Author Name Unknown Organization [facility] Address [address] [place] [address] Phone [phone] Care Team Providers Care Induction Brazer Name Role Phone Gabriele Dumas MD Primary Care Provide r Reason for Visit * Reason Onset Date Comments Forms Request 11/07/2023 Encounter Details Date Type Department Care Team (Late st Contact Info) Description 11/07/2023 Telephone Family [address] [phone] Gabriele Dumas MD [address] [place] [address] [place] [phone] Forms Request Allergies Active Allergy Reactions Criticality Noted Date [...] DxE11.9 100 Strip 3 11/06/2023 Active Aspirin EC 81 MG Oral Tablet Delayed ReleaseIndication s:PAD (peripheral artery disease) (HCC) Take 1 Tablet by mouth in the morning. 100 Tablet 3 05/18/2022 Discontinue d(Refill) Gabapentin 100 MG Oral Capsule (Neurontin)Indica tions:Chronic [...] encounter Miscellaneous Notes * Telephone Encounter - Flaquito Gutiérrez, PRAVEEN - 11/16/2023 9:53 AM EDT Calling again on the below message. [employer] resending fax (Statement of Certification Physician) Provided: [phone] Received a call asking if fax was received by office. Name/Company sending fax: Nahed [employer] What fax is pertaining to: (Statement of Certification Physician) Date(s) they sent request: 10/30/23, 11/07/23 and 11/15/23 Verified fax number they are sending to is correct (Y or N): Yes Callback Number for the clinic to call to verified if fax was received: [phone] * Telephone Encounter - Krissy Culver OSA - 11/07/2023 2:39 PM EDT Nahed with [facility] resending fax (Statement of Certification Physician) Provided: [phone] documented in this encounter Plan of Treatment Upcoming Encounters Date Type Department Care Team (Late st Contact Info) Description 12/18/2023 10:00 AM EST Office Visit Family [address] [place] [phone] Gabriele Dumas MD [address] [place] [address] [place] [address] 12/21/2023 10:30 AM EST Imaging Vascular Lab, [address] [place] [address] 12/21/2023 11:30 AM EST Imaging Vascular Lab, [address] [place] [address] 12/27/2023 8:00 AM EST Office Visit Pharmacy, [address] [place] [address] [place] [address] 12/27/2023 9:10 AM EST Office Visit Vascular Surgery, [address] [place] [address] Manoj Chan MD [address] [place] [address] 05/13/2024 7:20 AM EDT Office Visit Family [address] [place] [phone] Gabriele Dumas MD [address] [place] [address] [place] [address] 05/23/2024 9:30 AM EDT Office Visit Ophthalmology, [facility] [address] [place] [address] Lester Livingston, DO [address] [place] [address] Health Maintenance Due Date Last Done Comments Pneumococcal Vaccine: 65+ Years (1 of 2 - PCV) 06/16/1956 DTap/Tdap Vaccines (1 - Tdap) 1968 Colonoscopy 1994 Fecal Occult Blood Test 1994 Sigmoidoscopy 1994 Adult Wellness Visit 06/16/2015 Depression Screening 06/04/2022 06/04/2021 COVID-19 Vaccine ( - season) 2023 Diabetic [...] this encounter Medical Devices Implanted Type Area Sand Cleaning Machine Operator Device Identifier Shelf Expiration Date Model / Serial / Lot Filter Navalign Femoral Tulip - [id number] Implanted:Qty: 1 on 04/21/2010 at [place] [facility] [place] Right: Inferior Vena Cava COOK : [employer] 04/12/2013 [id number] / / [id number] [place] Acetabular Liner +4 [id number] 52mm Od Implanted:Qty: 1 on 04/22/2010 at OR [facility] [place] Right: Hip 03/16/2015 [id number] / / [id number] Stem [place] Por Tpr Stdoff S6 - [id number] Implanted:Qty: 1 on 04/22/2010 at OR [facility] [place] [facility] Right: Hip JNJ : [employer] 02/14/2020 [id number] / / [id number] Head Mtl Artic Edwardo 36mm Pl5 - [id number] Implanted:Qty: 1 on 04/22/2010 at OR [facility] [place] [facility] Right: Hip JNJ : [employer] 12/14/2014 [id number] / / [id number] Fem Acet [place] 300 52mm - [id number] Implanted:Qty: 1 on 04/22/2010 at [facility] Right: Hip JNJ : [employer] [id number] / / [id number] Screw Selftap 3.5x55 204.855 - [id number] Implanted:Qty: 1 on 04/22/2010 at OR [facility] [place] Right: Hip SYNTHES 204.855 / / Screw Canc 4mm 206.065 - [id number] Implanted:Qty: 1 on 04/22/2010 at [facility] Right: Hip SYNTHES 206.065 / / Screw Canc [place] 6.5x50mm - [id number] Implanted:Qty: 1 on 04/22/2010 at [facility] Right: Hip JNJ : [employer] [id number] / / [id number] Screw Canc [place] 6.5x30mm - [id number] Implanted:Qty: 1 on 04/22/2010 at [facility] Right: Hip JNJ : [employer] 02/14/2020 [id number] / / [id number] Screw Selftap 3.5x55 204.855 - [id number] Implanted:Qty: 2 on 04/22/2010 at OR [facility] [place] Right: Hip SYNTHES 204.855 / / Screw Canc 4mm 206.065 - [id number] Implanted:Qty: 1 on 04/22/2010 at OR [facility] [place] Right: Hip SYNTHES 206.065 / / Screw Canc [place] 6.5x15mm - [id number] Implanted:Qty: 1 on 04/22/2010 at OR [facility] [place] Right: Hip JNJ : [employer] 02/14/2020 [id number] / / [id number] Lens 20.5 [id number] - [id number] - [id number] Implanted:Qty: 1 on 10/14/2020 by Lester Livingston DO at [facility] Right: Eye DUANE : SURGICAL 2025 [id number] / [id number] / Lens 20.0 [id number] - [id number] 086 - [id number] Implanted:Qty: 1 on 12/09/2020 by Lester Livingston DO at OR [facility] Left: Eye DUANE : SURGICAL 07/13/2025 [id number] / [id number] / documented as of this encounter Advance Directives * Full Code (Latest Code Status on File) Date Activated Date Inactivated Comments 04/22/2010 6:35 PM 04/27/2010 9:02 PM Question Answer Comments Discussion of Advance Directives occurred with: Not Discussed Care Teams Induction Brazer Relationship Specialty Start Date End Date Gabriele Dumas MD [address] [place] [address] [place] [phone] PCP - General Family Medicine 06/04/21 documented as of this encounter
--- OUTSIDE RECORDS SUMMARY | 2024-03-23 11:51 | External Medical Summary | Summary of Care ---
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 documented as of this encounter (statuses as of 11/20/2023) Medications Medication Sig Dispensed Refills Start Date [...] 12/26/2022 Active Glimepiride 4 MG Oral Tablet (Amaryl)Indications :Type [...] less than 8.0% ([facility]) Use it daily 100 Each 07/20/2023 Active Lisinopril 40 MG Oral TabletIndications:H TN, goal below 140/90 TAKE 1 TABLET BY MOUTH IN THE MORNING 90 Tablet 2 08/08/2023 Active Liraglutide 18 MG/3ML Subcutaneous Solution Pen-injector (Victoza)Indication s:Type 2 diabetes mellitus with hemoglobin A1c goal of less than 8.0% ([facility]) Inject 1.8 mg under the [...] the morning. 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 When she calls back please get specific details about the form she is faxing. Does anything else need done with it aside from being dated after 10/04/23? I shredded the last one because I thought it was already completed. She most likely needs to fax M-Changaagain. * Telephone Encounter - Ginette Ward OSA - 11/20/2023 10:15 AM EDT Nahed calling from [employer]. Needing the form signed and sent back. There are a number of messages and attempts for this form. They sent it and its in the media blank. The ones I did come across were dated for 10/04/2023 They need to be dated after that date. Please sign and fax to [phone] Please advise documented in this encounter Plan of Treatment Upcoming Encounters Date Type Department Care Team (Late st Contact Info) Description 12/18/2023 10:00 AM EST Office Visit Family Medicine [address] [phone] Gabriele Dumas MD [address] [place] [address] [place] [address] 12/21/2023 10:30 AM EST Imaging Vascular Lab, [address] 132 [facility] [place] [address] 12/21/2023 11:30 AM EST Imaging Vascular Lab, [address] [place] [address] 12/27/2023 8:00 AM EST Office Visit Pharmacy, [address] [place] [address] [place] [address] 12/27/2023 9:10 AM EST Office Visit Vascular Surgery, [address] [place] [address] [facility] [address] 05/13/2024 7:20 AM EDT Office Visit Family Medicine [address] [place] [address] Gabriele Dumas MD [address] [place] [address] [place] [address] 05/24/2024 11:00 AM EDT Office Visit Ophthalmology, [address] [place] [address] Lester Livingston DO [address] [place] [address] Health Maintenance Due Date Last Done Comments [...] this encounter Medical Devices Implanted Type Area Dialysis Patient Care Technician Device Identifier Shelf Expiration Date Model / Serial / Lot Filter Navalign Femoral Tulip - [id number] Implanted:Qty: 1 on 04/21/2010 at [facility] Right: Inferior Vena Cava COOK : [employer] 04/12/2013 [id number] / / [id number] [place] Acetabular Liner +4 [id number] Id 52mm Od Implanted:Qty: 1 on 04/22/2010 at [facility] Right: Hip 03/16/2015 [id number] / / [id number] Stem [place] Por Tpr Stdoff S6 - [id number] Implanted:Qty: 1 on 04/22/2010 at [facility] Right: Hip JNJ : [employer] 02/14/2020 [id number] / / [id number] Head Mtl Artic Edwardo 36mm Pl5 - [id number] Implanted:Qty: 1 on 04/22/2010 at [facility] Right: Hip JNJ : [employer] 12/14/2014 [id number] / / [id number] Fem Acet [place] 300 52mm - [id number] Implanted:Qty: 1 on 04/22/2010 at [facility] Right: Hip JNJ : [employer] [id number] / / [id number] Screw [place] 3.5x55 204.855 - [id number] Implanted:Qty: 1 on 04/22/2010 at [facility] Right: Hip SYNTHES 204.855 / / Screw Canc 4mm 206.065 - [id number] Implanted:Qty: 1 on 04/22/2010 at [facility] Right: Hip SYNTHES 206.065 / / Screw Canc [place] 6.5x50mm - [id number] Implanted:Qty: 1 on 04/22/2010 at [facility] Right: Hip JNJ : [employer] [id number] / / [id number] Screw Canc [place] 6.5x30mm - [id number] Implanted:Qty: 1 on 04/22/2010 at [facility] Right: Hip JNJ : [employer] 02/14/2020 [id number] / / [id number] Screw [place] 3.5x55 204.855 - [id number] Implanted:Qty: 2 on 04/22/2010 at [facility] Right: Hip SYNTHES 204.855 / / Screw Canc 4mm 206.065 - [id number] Implanted:Qty: 1 on 04/22/2010 at [facility] Right: Hip SYNTHES 206.065 / / Screw Canc [place] 6.5x15mm - [id number] Implanted:Qty: 1 on 04/22/2010 at [place] [facility] Right: Hip JNJ : [employer] 02/14/2020 [id number] / / [id number] Lens 20.5 [id number] - [id number] 039 - [id number] Implanted:Qty: 1 on 10/14/2020 by Lester Livingston DO at [facility] Right: Eye DUANE : SURGICAL 2025 [id number] / [id number] / Lens 20.0 [id number] - [id number] 086 - [id number] Implanted:Qty: 1 on 12/09/2020 by Lester Livingston DO at [facility] Left: Eye DUANE : SURGICAL 07/13/2025 [id number] 0 / [id number] / documented as of this encounter Advance Directives * Full Code (Latest Code Status on File) Date Activated Date Inactivated Comments 04/22/2010 6:35 PM 04/27/2010 9:02 PM Question Answer Comments Discussion of Advance Directives occurred with: Not Discussed Care Teams Meter Setter Relationship Specialty Start Date End Date Gabriele Dumas MD [address] [place] [address] [place] [phone] PCP - General Family Medicine 06/04/21 documented as of this encounter
--- OUTSIDE RECORDS SUMMARY | 2024-03-23 11:51 | External Medical Summary | Summary of Care ---
Author Name Unknown Organization [facility] Address [address] [place] [address] Phone [phone] Care Team Providers Care Exceptional Children Teacher Assistant Name Role Phone Gabriele Dumas MD Primary Care Provide r Reason for Visit * Reason Onset Date Comments Advice 11/20/2023 Encounter Details Date Type Department Care Team (Late st Contact Info) Description 11/20/2023 Telephone Family [address] [place] [address] Gabriele Dumas MD [address] [place] [address] [place] [phone] Advice Allergies Active Allergy Reactions Criticality Noted Date Comments Influenza Vaccines 01/18/2013 Guilen-[place] syndrome documented as of this encounter (statuses [...] A1c goal of less than 8.0% ([facility]) Use it daily 100 Each 07/20/2023 Active Lisinopril 40 MG Oral TabletIndications:H TN, goal below 140/90 TAKE 1 TABLET BY MOUTH IN THE MORNING 90 Tablet 2 08/08/2023 Active Liraglutide 18 MG/3ML Subcutaneous Solution Pen-injector (Victoza)Indication s:Type 2 diabetes mellitus with hemoglobin A1c goal of less than 8.0% ([facility]) Inject 1.8 mg under the skin in the morning. 9 mL 1 09/06/2023 Active OneTouch Verio In Vitro Strip (Glucose Blood)Indications:T ype 2 diabetes mellitus with hemoglobin A1c goal of less than 8.0% ([facility]) Use to test blood sugars once [...] History of osteomyelitis 04/28/2021 History of Guillain-[place] sy ndrome due to 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 04/28/2021 [...] encounter Miscellaneous Notes * Telephone Encounter - Hamzah Rouse OSA - 11/20/2023 3:43 PM EDT Nahed calling from [employer], stated that she only needs the Form to be dated any day between 10/03 and 11/20/2023, because patient appt is tomorrow at 8:00 And boxes under question 2 all that apply needs to be checked. Nahed re-faxed the form in case is needed. Please call back with any questions at [phone] * Telephone Encounter - Barby Cohen CMA [...] completed. She most likely needs to fax itagain. * Telephone Encounter - Ginette Ward OSA - 11/20/2023 10:15 AM EDT Nahed calling from [employer]. Needing the form signed and sent back. There are a number of messages and attempts for this form. They sent it and its in the media blank. The ones I did come across were dated for 10/04/2023 They need to be dated after that date. Please sign and fax to [phone] Please advise documented in this encounter Plan of Treatment Upcoming Encounters Date Type Department Care Team (Late st Contact Info) Description 12/18/2023 10:00 AM EST Office Visit [address] [place] [phone] Gabriele Dumas MD [address] [place] [address] [place] [address] 12/21/2023 10:30 AM EST Imaging Vascular Lab, [address] 132 [facility] [place] [address] 12/21/2023 11:30 AM EST Imaging Vascular Lab, [address] [place] [address] 12/27/2023 8:00 AM EST Office Visit Pharmacy, [address] [place] [address] [place] [address] 12/27/2023 9:10 AM EST Office Visit Vascular Surgery, [address] [place] [address] Manoj Chan MD [address] [place] [facility] [place] [address] 05/13/2024 7:20 AM EDT Office Visit [address] [place] [address] Gabriele Dumas MD [address] [place] [address] [place] [address] 05/24/2024 11:00 AM EDT Office Visit Ophthalmology, [address] [place] [address] Lester Livingston DO [address] [place] [address] Health Maintenance Due Date Last Done Comments [...] this encounter Medical Devices Implanted Type Area Workers' Compensation Mediator Device Identifier Shelf Expiration Date Model / Serial / Lot Filter Navalign Femoral Tulip - [id number] Implanted:Qty: 1 on 04/21/2010 [place] [facility] Right: Inferior Vena Cava COOK : [employer] 04/12/2013 [id number] / / [id number] [place] Acetabular Liner +4 [id number] Id 52mm Od Implanted:Qty: 1 on 04/22/2010 at [place] [facility] Right: Hip 03/16/2015 1221-36-152 / / [id number] Stem [place] Por Tpr Stdoff S6 - [id number] Implanted:Qty: 1 on 04/22/2010 at [place] [facility] Right: Hip JNJ : [employer] 02/14/2020 [id number] / / [id number] Head Mtl Artic [place] 36mm Pl5 - [id number] Implanted:Qty: 1 on 04/22/2010 at [place] [facility] Right: Hip JNJ : [employer] 12/14/2014 [id number] / / [id number] Fem Acet [place] 300 52mm - [id number] Implanted:Qty: 1 on 04/22/2010 at [place] [facility] Right: Hip JNJ : [employer] [id number] / / [id number] Screw [place] 3.5x55 204.855 - [id number] Implanted:Qty: 1 on 04/22/2010 at [place] [facility] Right: Hip SYNTHES 204.855 / / Screw Canc 4mm 206.065 - [id number] Implanted:Qty: 1 on 04/22/2010 at [facility] Right: Hip SYNTHES 206.065 / / Screw Canc [place] 6.5x50mm - [id number] Implanted:Qty: 1 on 04/22/2010 at [facility] Right: Hip JNJ : [employer] [id number] / / [id number] Screw Canc [place] 6.5x30mm - [id number] Implanted:Qty: 1 on 04/22/2010 at [place] [facility] Right: Hip JNJ : [employer] 02/14/2020 [id number] / / [id number] Screw [place]ft[place] 3.5x55 204.855 - [id number] Implanted:Qty: 2 on 04/22/2010 at [place] [facility] Right: Hip SYNTHES 204.855 / / Screw Canc 4mm 206.065 - [id number] Implanted:Qty: 1 on 04/22/2010 at [place] [facility] Right: Hip SYNTHES 206.065 / / Screw Canc [place] 6.5x15mm - [id number] Implanted:Qty: 1 on 04/22/2010 at [place] [facility] Right: Hip JNJ : [employer] 02/14/2020 [id number] / / [id number] Lens 20.5 [id number] - [id number] - [id number] Implanted:Qty: 1 on 10/14/2020 by Lester Livingston DO at OR [facility] Right: Eye DUANE : SURGICAL 2025 [id number] 5 / [id number] / Lens 20.0 [id number] - [id number] 086 - [id number] Implanted:Qty: 1 on 12/09/2020 by Lester Livingston DO at OR [facility] Left: Eye DUANE : SURGICAL 07/13/2025 [id number] 0 / [id number] / documented as of this encounter Advance Directives * Full Code (Latest Code Status on File) Date Activated Date Inactivated Comments 04/22/2010 6:35 PM 04/27/2010 9:02 PM Question Answer Comments Discussion of Advance Directives occurred with: Not Discussed Care Teams Exceptional Children Teacher Assistant Relationship Specialty Start Date End Date Gabriele Dumas MD [address] [place] [address] [place] [address] PCP - General Family Medicine 06/04/21 documented as of this encounter
--- OUTSIDE RECORDS SUMMARY | 2024-03-23 11:51 | External Medical Summary | Summary of Care ---
Author Name Unknown Organization [facility] Address [address] [place] [address] Phone [phone] Care Team Providers Care Wood Boat Builder Supervisor Name Role Phone Gabriele Dumas MD Primary Care Provide r Reason for Visit * Reason Comments eRx-Medication Refill Encounter Details Date Type Department Care Team (Late st Contact Info) Description 12/01/2023 Refill Family Medicine [address] [address] Gabriele Dumas MD [address] [place] [address] [place] [address] Type 2 diabetes mellitus with hemoglobin A1c goal of less than 8.0% ([facility]) Allergies Active Allergy Reactions Criticality Noted Date Comments Influenza Vaccines 01/18/2013 Guilen-Horsham syndrome documented as of this encounter (statuses as of 12/04/2023) Medications Medication Sig Dispensed Refills Start Date End Date Status Atorvastatin Calcium 40 MG Oral Tablet (Lipitor) Take 1 Tablet by mouth in the morning. 90 Tablet 5 3 Active OneTouch Delica Lancets 33G Use to test blood sugars once daily DxE11.9 100 Each 3 3 Active Naproxen 500 MG Oral Tablet (Naprosyn)Indica tions:Pain in joint of right shoulder Take 1 Tablet by mouth 2 times a day with morning and evening meals. 14 Tablet 3 Active Additional Information Patient not taking.Informant: Patient, Reported on 11/15/2023 Glimepiride 4 MG Oral Tablet (Amaryl)Indicati ons:Type 2 diabetes mellitus with hemoglobin A1c goal of less than 8.0% ([facility]) Take 1 Tablet by mouth in the morning and 1 Tablet before bedtime. 180 Tablet 2 4 Active Dapagliflozin Propanediol 10 MG Oral Tablet (Farxiga)Indicat ions:Type 2 diabetes mellitus with hemoglobin A1c goal of less than 8.0% ([facility]) Take 1 Tablet by mouth in the morning. 90 Tablet 1 4 Active Novofine Pen Needle 32G X [...] the morning. 100 Tablet 3 4 Active Victoza 18 MG/3ML Subcutaneous Solution Pen-injector (Liraglutide)Ind ications:Type 2 diabetes mellitus with hemoglobin A1c goal of less than 8.0% ([facility]) INJECT 1.2MG SUBCUTANEOUSLY IN THE MORNING DAILY 9 mL 5 4 Active metFORMIN HCl ER 500 MG Oral Tablet Extended Release 24 Hour (Glucophage XR)Indications:T ype 2 diabetes mellitus with hemoglobin A1c goal of less than 8.0% ([facility]) TAKE 4 TABLETS BY MOUTH ONCE DAILY IN THE MORNING 360 Tablet 3 3 12/04/19 24 Discontinued Liraglutide 18 MG/3ML Subcutaneous Solution Pen-injector (Victoza)Indicat ions:Type 2 diabetes mellitus with hemoglobin A1c goal of less than 8.0% ([facility]) Inject 1.8 mg under the skin in the morning. 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 Informedpt that RX is available at their pharmacy. Pt verbalized understanding and stated they will check with their pharmacy regarding this medication. Thank you, Stacie Chavez Plate Conditioner I [facility] 12/04/2023,12:04 PM * Telephone Encounter - Livia [facility] - 12/03/2023 9:11 AM EDTSigned Prescriptions: Disp Refills Victoza 18 MG/3ML Subcutaneous Solution Pe*9 mL 5 Sig: INJECT 1.2MG SUBCUTANEOUSLY IN THE MORNING DAILYAuthorizing Provider: Juan Antonio DUMAS User: LIVIA GANNON * Telephone Encounter - Livia [facility] - 12/03/2023 9:09 AM EDT Patient managed by [facility] Per last visit, no med chagnes Refill authorized Thank You, Livia G[facility] Clinical Pharmacist [facility] [phone] [id number] 12/03/2023, 9:11 AM documented in this encounter Plan of Treatment Upcoming Encounters Date Type Department Care Team (Late st Contact Info) Description 12/18/2023 10:00 AM EST Office Visit Family Medicine [address] [place] [address] Gabriele Dumas MD [address] [place] [address] [place] [address] 12/21/2023 10:30 AM EST Imaging Vascular Lab, [address] [place] [address] 12/21/2023 11:30 AM EST Imaging Vascular Lab, [address] [place] [address] 12/27/2023 8:00 AM EST Office Visit Pharmacy, [address] [place] [address] [place] [address] 12/27/2023 9:10 AM EST Office Visit Vascular Surgery, [address] [place] [address] Manoj Chan MD [address] [facility] [place] [phone] 05/13/2024 7:20 AM EDT Office Visit Family Medicine [address] [place] [phone] Gabriele Dumas MD [address] [place] [address] [place] [address] 05/24/2024 11:00 AM EDT Office Visit Ophthalmology, [address] [place] [address] Lester Livingston DO [address] [place] [address] Health Maintenance Due Date Last Done Comments [...] this encounter Medical Devices Implanted Type Area Narcotics Investigator Device Identifier Shelf Expiration Date Model / Serial / Lot Filter Navalign Femoral Tulip - [id number] Implanted:Qty: 1 on 04/21/2010 at [place] [facility] Right: Inferior Vena Cava COOK : [employer] 04/12/2013 [id number] / / [id number] [place] Acetabular Liner +4 [id number] Id 52mm Od Implanted:Qty: 1 on 04/22/2010 at [place] [facility] Right: Hip 03/16/2015 1221-36-152 / / [id number] Stem [place] Por Tpr Stdoff S6 - [id number] Implanted:Qty: 1 on 04/22/2010 at [facility] Right: Hip JNJ : [employer] 02/14/2020 [id number] / / [id number] Head Mtl Artic [place] 36mm Pl5 - [id number] Implanted:Qty: 1 on 04/22/2010 at [place] [facility] Right: Hip JNJ : [employer] 12/14/2014 [id number] / / [id number] Fem Acet [place] 300 52mm - [id number] Implanted:Qty: 1 on 04/22/2010 at [place] [facility] Right: Hip JNJ : [employer] [id number] / / [id number] Screw Selft[place] 3.5x55 204.855 - [id number] Implanted:Qty: 1 on 04/22/2010 at [facility] Right: Hip SYNTHES 204.855 / / Screw Canc 4mm 206.065 - [id number] Implanted:Qty: 1 on 04/22/2010 at [place] [facility] Right: Hip SYNTHES 206.065 / / Screw Canc [place] 6.5x50mm - [id number] Implanted:Qty: 1 on 04/22/2010 at [place] [facility] Right: Hip JNJ : [employer] [id number] / / [id number] Screw Canc [place] 6.5x30mm - [id number] Implanted:Qty: 1 on 04/22/2010 at [place] [facility] Right: Hip JNJ : [employer] 02/14/2020 [id number] / / [id number] Screw Selftap 3.5x55 204.855 - [id number] Implanted:Qty: 2 on 04/22/2010 at [place] [facility] Right: Hip SYNTHES 204.855 / / Screw Canc 4mm 206.065 - [id number] Implanted:Qty: 1 on 04/22/2010 at [place] [facility] Right: Hip SYNTHES 206.065 / / Screw Canc [place] 6.5x15mm - [id number] Implanted:Qty: 1 on 04/22/2010 at [place] [facility] Right: Hip JNJ : [employer] 02/14/2020 [id number] / / [id number] Lens 20.5 [id number] - [id number] 039 - [id number] Implanted:Qty: 1 on 10/14/2020 by Lester Livingston DO at OR [facility] Right: Eye DUANE : SURGICAL 2025 [id number] / [id number] / Lens 20.0 [id number] - [id number] 086 - [id number] Implanted:Qty: 1 on 12/09/2020 by Lester Livingston DO at OR [facility] Left: Eye DUANE : SURGICAL 07/13/2025 [id number] 0 / [id number] / documented as of this encounter Visit Diagnoses Diagnosis Type 2 diabetes mellitus with hemoglobin A1c goal of less than 8.0% ([facility]) documented in this encounter Advance Directives * Full Code (Latest Code Status on File) Date Activated Date Inactivated Comments 04/22/2010 6:35 PM 04/27/2010 9:02 PM Question Answer Comments Discussion of Advance Directives occurred with: Not Discussed Care Teams Wood Boat Builder Supervisor Relationship Specialty Start Date End Date Gabriele Dumas MD [address] [place] [address] [place] [phone] PCP - General Family Medicine 06/04/21 documented as of this encounter
--- OUTSIDE RECORDS SUMMARY | 2024-03-23 11:51 | External Medical Summary | Summary of Care ---
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 It was complete in August. I faxed it again. * Telephone Encounter - Flaquito Gutiérrez OSA - 11/16/2023 9:53 AM EDT Calling again on the below message. Nahed Champion resending fax (Statement of Certification Physician) Provided: [phone] Received a call asking if fax was received by office. Name/Company sending fax: Nahed garcia [email or web address] What fax is pertaining to: (Statement of Certification Physician) Date(s) they sent request: 10/30/23, 11/07/23 and 11/15/23 Verified fax number they are sending to is correct (Y or N): Yes Callback Number for the clinic to call to verified if fax was received: [phone] * Telephone Encounter - Krissy Culver OSA - 11/07/2023 2:39 PM EDT Nahed with [employer] [facility] resending fax (Statement of Certification Physician) Provided: [phone] documented in this encounter Plan of Treatment Upcoming Encounters Date Type Department Care Team (Late st Contact Info) Description 12/18/2023 10:00 AM EST Office Visit Family Medicine [address] [place] [phone] Gabriele Dumas MD [address] [place] [address] [place] [address] 12/21/2023 10:30 AM EST Imaging Vascular Lab, [address] [place] [address] 12/21/2023 11:30 AM EST Imaging Vascular Lab, [address] [place] [address] 12/27/2023 8:00 AM EST Office Visit Pharmacy, [address] [place] [address] [place] [address] 12/27/2023 9:10 AM EST Office Visit Vascular Surgery, [address] [place] [address] Manoj Chan MD [address] [facility] [place] [phone] 05/13/2024 7:20 AM EDT Office Visit Family Medicine [address] [place] [phone] Gabriele Dumas MD [address] [place] [address] [place] [address] 05/24/2024 11:00 AM EDT Office Visit Ophthalmology, [place] [address] [place] [address] Lester Livingston DO [address] [place] [address] Health Maintenance Due Date Last Done Comments [...] this encounter Medical Devices Implanted Type Area Recruiting Specialist Device Identifier Shelf Expiration Date Model / Serial / Lot Filter Navalign Femoral Tulip - [id number] Implanted:Qty: 1 on 04/21/2010 at [place] [facility] [place] Right: Inferior Vena Cava COOK : [employer] 04/12/2013 [id number] / / [id number] [place] Acetabular Liner +4 [id number] 52mm Od Implanted:Qty: 1 on 04/22/2010 at OR [facility] [place] Right: Hip 03/16/2015 1221-36-152 / / [id number] Stem [place] Por Tpr Stdoff S6 - [id number] Implanted:Qty: 1 on 04/22/2010 at OR [facility] [place] Right: Hip JNJ : [employer] 02/14/2020 [id number] / / [id number] Head Mtl Artic Edwardo 36mm Pl5 - [id number] Implanted:Qty: 1 on 04/22/2010 at OR [facility] [place] Right: Hip JNJ : [employer] 12/14/2014 [id number] / / [id number] Cup Fem Acet [place] 300 52mm - [id number] Implanted:Qty: 1 on 04/22/2010 at OR [facility] [place] Right: Hip JNJ : [employer] [id number] / / [id number] Screw Sel[place] 3.5x55 204.855 - [id number] Implanted:Qty: 1 on 04/22/2010 at [facility] Right: Hip SYNTHES 204.855 / / Screw Canc 4mm 206.065 - [id number] Implanted:Qty: 1 on 04/22/2010 at OR [facility] [place] Right: Hip SYNTHES 206.065 / / Screw Canc [place] 6.5x50mm - [id number] Implanted:Qty: 1 on 04/22/2010 at OR [facility] [place] Right: Hip JNJ : [employer] [id number] / / [id number] Screw Canc [place] 6.5x30mm - [id number] Implanted:Qty: 1 on 04/22/2010 at OR [facility] [place] Right: Hip JNJ : [employer] 02/14/2020 [id number] / / [id number] Screw [place]ft[place] 3.5x55 204.855 - [id number] Implanted:Qty: 2 on 04/22/2010 at OR [facility] [place] Right: Hip SYNTHES 204.855 / / Screw Canc 4mm 206.065 - [id number] Implanted:Qty: 1 on 04/22/2010 at OR [facility] [place] Right: Hip SYNTHES 206.065 / / Screw Canc [place] 6.5x15mm - [id number] Implanted:Qty: 1 on 04/22/2010 at OR [facility] [place] Right: Hip JNJ : [employer] 02/14/2020 [id number] / / [id number] Lens 20.5 [id number] - [id number] 039 - [id number] Implanted:Qty: 1 on 10/14/2020 by Lester Livingston DO at OR [facility] Right: Eye DUANE : SURGICAL 2025 [id number] / [id number] 039 / Lens 20.0 [id number] - [id number] 086 - [id number] Implanted:Qty: 1 on 12/09/2020 by Lester Livingston DO at OR [facility] Left: Eye DUANE : SURGICAL 07/13/2025 [id number] / [id number] / documented as of this encounter Advance Directives * Full Code (Latest Code Status on File) Date Activated Date Inactivated Comments 04/22/2010 6:35 PM 04/27/2010 9:02 PM Question Answer Comments Discussion of Advance Directives occurred with: Not Discussed Care Teams Marine Engineer Cpvec Relationship Specialty Start Date End Date Gabriele Dumas MD [address] [place] [address] [place] [address] PCP - General Family Medicine 06/04/21 documented as of this encounter
--- OUTSIDE RECORDS SUMMARY | 2024-03-23 11:51 | External Medical Summary | Summary of Care ---
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 9 mL 1 09/06/2023 Active OneTouch Verio In Vitro Strip (Glucose Blood)Indications:T ype 2 diabetes mellitus with hemoglobin A1c goal of less than 8.0% ([facility]) Use to test blood sugars [...] 04/28/2021 History of osteomyelitis 04/28/2021 History of Guillain-[place]pe[place] sy ndrome due to 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 04/28/2021 [...] encounter Miscellaneous Notes * Telephone Encounter - Niki Madrigal RN - 11/20/2023 4:15 PM EDT I changed the date and refaxed the form * Telephone Encounter - Hamzah Rouse OSA - 11/20/2023 3:43 PM EDT Nahed calling from [employer], stated that she only needs the Form to be dated any day between 10/03 and 11/20/2023, because patient appt is tomorrow at 8:00 And boxes under question 2 all that apply needs to be checked. Nahed re-faxed the form in case is needed. Please call back with any questions at [phone] * Telephone Encounter - Barby Cohen CMA [...] 11/20/2023 10:15 AM EDT Nahed calling from [employer]. Needing the form signed and sent back. There are a number of messages and attempts for this form. They sent it and its in the media blank. The ones I did come across were dated for 10/04/2023 They need to be dated after that date. Please sign and fax to [phone] Please advise documented in this encounter Plan of Treatment Upcoming Encounters Date Type Department Care Team (Late st Contact Info) Description 12/18/2023 10:00 AM EST Office Visit Family Medicine [address] [place] [phone] Gabriele Dumas MD [address] [place] [address] [place] [address] 12/21/2023 10:30 AM EST Imaging Vascular Lab, [address] [address] 12/21/2023 11:30 AM EST Imaging Vascular Lab, [address] [place] [address] 12/27/2023 8:00 AM EST Office Visit Pharmacy, [address] [place] [address] [place] [address] 12/27/2023 9:10 AM EST Office Visit Vascular Surgery, [address] [place] [address] Manoj [facility] [address] [facility] [address] 05/13/2024 7:20 AM EDT Office Visit Family Medicine [address] [place] [phone] Gabriele Dumas MD [address] [place] [address] [place] [address] 05/24/2024 11:00 AM EDT Office Visit Ophthalmology, [place] [address] [place] [address] Lester Livingston DO [address] [place] [address] Health Maintenance Due Date Last Done Comments [...] this encounter Medical Devices Implanted Type Area Division Superintendent Device Identifier Shelf Expiration Date Model / Serial / Lot Filter Navalign Femoral Tulip - [id number] [place]:Q[place] [facility] [place] Inferior Vena Cava COOK : [employer] 04/12/2013 [id number] / / [id number] [place] Acetabular Liner +4 [id number] 52mm Od Implanted:Qty: 1 on 04/22/2010 [place] [facility] [place]: Hip 03/16/2015 1221-36-152 / / [id number] Stem [place] Por Tpr Stdoff S6 - [id number] Implanted:Qty: 1 on 04/22/2010 at [facility] Right: Hip JNJ : [employer] 02/14/2020 [id number] / / [id number] Head Mtl Artic [place] 36mm Pl5 - [id number] Implanted:Qty: 1 on 04/22/2010 [place] [facility] [place]: Hip JNJ : [employer] 12/14/2014 [id number] / / [id number] Fem Acet [place] 300 52mm - [id number] Implanted:Qty: 1 on 04/22/2010 [place] [facility] [place]: Hip JNJ : [employer] [id number] / / [id number] Screw Selft[place] 3.5x55 204.855 - [id number] Implanted:Qty: 1 on 04/22/2010 at [facility] Right: Hip SYNTHES 204.855 / / Screw Canc 4mm 206.065 - [id number] Implanted:Qty: 1 on 04/22/2010 at [facility] Right: Hip SYNTHES 206.065 / / Screw Canc [place] 6.5x50mm - [id number] Implanted:Qty: 1 on 04/22/2010 [place] [facility] [place]: Hip JNJ : [employer] [id number] / / [id number] Screw Canc [place] 6.5x30mm - [id number] Implanted:Qty: 1 on 04/22/2010 [place] [facility] [place]: Hip JNJ : [employer] 02/14/2020 [id number] / / [id number] Screw [place] 3.5x55 204.855 - [id number] Implanted:Qty: 2 on 04/22/2010 [place] [facility]: Hip SYNTHES 204.855 / / Screw Canc 4mm 206.065 - [id number] Implanted:Qty: 1 on 04/22/2010 [place] [facility] [place]: Hip SYNTHES 206.065 / / Screw Canc [place] 6.5x15mm - [id number] Implanted:Qty: 1 on 04/22/2010 [place] [facility]: Hip JNJ : [employer] 02/14/2020 [id number] / / [id number] Lens 20.5 [id number] - [id number] 039 - [id number] Implanted:Qty: 1 on 10/14/2020 by Lester Livingston DO at OR [facility] Right: Eye DUANE : SURGICAL 2025 [id number] / [id number] 039 / Lens 20.0 [id number] - [id number] 086 - [id number] Implanted:Qty: 1 on 12/09/2020 by Lester Livingston DO at OR [facility] Left: Eye DUANE : SURGICAL 07/13/2025 [id number] 0 / [id number] / documented as of this encounter Advance Directives * Full Code (Latest Code Status on File) Date Activated Date Inactivated Comments 04/22/2010 6:35 PM 04/27/2010 9:02 PM Question Answer Comments Discussion of Advance Directives occurred with: Not Discussed Care Teams Floral Clerk Relationship Specialty Start Date End Date Gabriele Dumas MD [address] [place] [address] [place] [phone] PCP - General Family Medicine 06/04/21 documented as of this encounter
--- OUTSIDE RECORDS SUMMARY | 2024-03-23 11:51 | External Medical Summary | Summary of Care ---
Author Name Unknown Organization [facility] Address [address] [place] [address] Phone [phone] Care Team Providers Care Machine Zipper Trimmer Name Role Phone Gabriele Dumas MD Primary Care Provide r Reason for Visit * Reason Comments eRx-Medication Refill Encounter Details Date Type Department Care Team (Late st Contact Info) Description 12/01/2023 Refill Family Medicine [address] [phone] Gabriele Dumas MD [address] [place] [address] [place] [address] Type 2 diabetes mellitus with hemoglobin A1c goal of less than 8.0% ([facility]) Allergies Active Allergy Reactions Criticality Noted Date Comments Influenza Vaccines 01/18/2013 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 Thank you, Stacie Chavez Manufacturing Machine Operator I [facility] 12/04/2023,12:04 PM * Telephone Encounter - Livia Gannon [facility] - 12/03/2023 9:11 AM EDTSigned Prescriptions: Disp Refills Victoza 18 MG/3ML Subcutaneous Solution Pe*9 mL 5 Sig: INJECT 1.2MG SUBCUTANEOUSLY IN THE MORNING DAILYAuthorizing Provider: Juan Antonio DUMAS User: LIVIA GANNON * Telephone Encounter - Livia Gannon [facility] - 12/03/2023 9:09 AM EDT Patient managed by [facility] Per last visit, no med chagnes Refill authorized Thank You, Livia Gannon [facility] Clinical Pharmacist [facility] [phone] [id number] 12/03/2023, 9:11 AM documented in this encounter Plan of Treatment Upcoming Encounters Date Type Department Care Team (Late st Contact Info) Description 12/18/2023 10:00 AM EST Office Visit Family Medicine [address] [place] [phone] Gabriele Dumas MD [address] [place] [address] [place] [address] 12/21/2023 10:30 AM EST Imaging Vascular Lab, [address] [place] [address] 12/21/2023 11:30 AM EST Imaging Vascular Lab, [address] [place] [address] 12/27/2023 8:00 AM EST Office Visit Pharmacy, [address] [place] [address] [place] [address] 12/27/2023 9:10 AM EST Office Visit Vascular Surgery, [address] [place] [address] Manoj Chan MD [address] [facility] [place] [id number] 05/13/2024 7:20 AM EDT Office Visit Family Medicine [address] [place] [phone] Gabriele Dumas MD [address] [place] [address] [place] [address] 05/24/2024 11:00 AM EDT Office Visit Ophthalmology, [place] [address] [place] [address] Lester Livingston DO [address] [place] [address] Health Maintenance Due Date Last Done Comments [...] this encounter Medical Devices Implanted Type Area Dry Wall Finisher Device Identifier Shelf Expiration Date Model / Serial / Lot Filter Navalign Femoral Tulip - [id number] Implanted:Qty: 1 on 04/21/2010 at OR [facility] [place] Right: Inferior Vena Cava COOK : [employer] 04/12/2013 [id number] / / [id number] [place] Acetabular Liner +4 [id number] 52mm Od Implanted:Qty: 1 on 04/22/2010 at OR [facility] [place] Right: Hip 03/16/2015 1221-36-152 / / [id number] Stem [place] Por Tpr Stdoff S6 - [id number] Implanted:Qty: 1 on 04/22/2010 at [facility] Right: Hip JNJ : [employer] 02/14/2020 [id number] / / [id number] Head Mtl Artic [place] 36mm Pl5 - [id number] Implanted:Qty: 1 on 04/22/2010 at OR [facility] [place] Right: Hip JNJ : [employer] 12/14/2014 [id number] / / [id number] Cup Fem Acet [place] 300 52mm - [id number] Implanted:Qty: 1 on 04/22/2010 at OR [facility] [place] Right: Hip JNJ : [employer] [id number] / / [id number] Screw Selftap 3.5x55 204.855 - [id number] Implanted:Qty: 1 on 04/22/2010 at [facility] Right: Hip SYNTHES 204.855 / / Screw Canc 4mm 206.065 - [id number] Implanted:Qty: 1 on 04/22/2010 at OR [facility] [place] Right: Hip SYNTHES 206.065 / / Screw Canc [place] 6.5x50mm - [id number] Implanted:Qty: 1 on 04/22/2010 at OR [facility] [place] Right: Hip JNJ : [employer] [id number] / / [id number] Screw Canc [place] 6.5x30mm - [id number] Implanted:Qty: 1 on 04/22/2010 at [place] [facility] [place] Right: Hip JNJ : [employer] 02/14/2020 [id number] / / [id number] Screw Selftap 3.5x55 204.855 - [id number] Implanted:Qty: 2 on 04/22/2010 at [place] [facility] [place] Right: Hip SYNTHES 204.855 / / Screw Canc 4mm 206.065 - [id number] Implanted:Qty: 1 on 04/22/2010 at [place] [facility] [place] Right: Hip SYNTHES 206.065 / / Screw Canc [place] 6.5x15mm - [id number] Implanted:Qty: 1 on 04/22/2010 at [place] [facility] [place] Right: Hip JNJ : [employer] 02/14/2020 [id number] / / [id number] Lens 20.5 [id number] - [id number] 039 - [id number] Implanted:Qty: 1 on 10/14/2020 by Lester Livingston DO at OR [facility] Right: Eye DUANE : SURGICAL 2025 [id number] 5 / [id number] 039 / Lens 20.0 [id number] - [id number] 086 - [id number] Implanted:Qty: 1 on 12/09/2020 by Lester Livingston DO at OR [facility] Left: Eye DUANE : SURGICAL 07/13/2025 [id number] 0 / [id number] / documented as of this encounter Visit Diagnoses Diagnosis Type 2 diabetes mellitus with hemoglobin A1c goal of less than 8.0% ([facility]) documented in this encounter Advance Directives * Full Code (Latest Code Status on File) Date Activated Date Inactivated Comments 04/22/2010 6:35 PM 04/27/2010 9:02 PM Question Answer Comments Discussion of Advance Directives occurred with: Not Discussed Care Teams Machine Zipper Trimmer Relationship Specialty Start Date End Date Gabriele Dumas MD [address] [place] [address] [place] [phone] PCP - General Family Medicine 06/04/21 documented as of this encounter
--- OUTSIDE RECORDS SUMMARY | 2024-03-23 11:51 | External Medical Summary ---
Author Name Unknown Address Unknown Organization : Laboratory Report Ordering Provider Test Date Status KAILYN KIMBALL 11/15/2023 11:10:49 Final Observation Date Value Abnormality Reference (Units ) Status Glucose Point of Care 11/15/2023 11:10:49 111 70-120 (mg/dL) Final Performing Location
--- OUTSIDE RECORDS SUMMARY | 2024-03-23 11:51 | External Medical Summary | Summary of Care ---
Author Name Unknown Organization [facility] Address [address] [place] [address] Phone [phone] Care Team Providers Care Lingo Cleaner Name Role Phone Gabriele Dumas MD Primary Care Provide r Reason for Visit * Reason Comments eRx-Medication Refill Encounter Details Date Type Department Care Team (Late st Contact Info) Description 12/04/2023 Refill Pharmacy, [address] [place] [phone] Gabriele Dumas MD [address] [place] [address] [place] [address] Type 2 diabetes mellitus with hemoglobin A1c goal of less than 8.0% ([facility]) Allergies Active Allergy Reactions Criticality Noted Date Comments 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 (statuses [...] THE MORNING 360 Tablet 1 4 Active metFORMIN HCl ER 500 MG Oral Tablet Extended Release 24 Hour (Glucophage XR)Indications:T ype 2 diabetes mellitus with hemoglobin A1c goal of less than 8.0% (HCC) TAKE 4 TABLETS BY MOUTH ONCE DAILY IN THE MORNING 360 Tablet 3 3 12/04/19 24 Discontinued documented as of this encounter [...] 04/28/2021 History of osteomyelitis 04/28/2021 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 04/28/2021 [...] encounter Miscellaneous Notes * Telephone Encounter - Marybeth Guy RPh - 12/04/2023 9:14 AM EDTSigned Prescriptions: Disp Refills metFORMIN HCl ER 500 MG Oral Tablet Extend*360 Ta*1 Sig: TAKE 4 TABLETS BY MOUTH ONCE DAILY IN THE MORNINGAuthorizing Provider: GABRIELE DUMASOrdernorman User: MARYBETH GUY documented in this encounter Plan of Treatment Upcoming Encounters Date Type Department Care Team (Late st Contact Info) Description 12/18/2023 10:00 AM EST Office Visit Family Medicine [address] [place] [address] Gabriele Dumas MD [address] [place] [address] [place] [address] 12/21/2023 10:30 AM EST Imaging Vascular Lab, [address] [facility] [place] [address] 12/21/2023 11:30 AM EST Imaging Vascular Lab, [address] [facility] [place] [address] 12/27/2023 8:00 AM EST Office Visit Pharmacy, [address] [place] [address] [place] [address] 12/27/2023 9:10 AM EST Office Visit Vascular Surgery, [address] [place] [address] Manoj Chan MD [address] [place] [address] 05/13/2024 7:20 AM EDT Office Visit Family Medicine [address] [place] [phone] Gabriele Dumas MD [address] [place] [address] [place] [address] 05/24/2024 11:00 AM EDT Office Visit Ophthalmology, [address] [place] [address] Lester Livingston DO [address] [place] [address] Health Maintenance Due Date Last Done Comments [...] this encounter Medical Devices Implanted Type Area Dog Trainer Device Identifier Shelf Expiration Date Model / Serial / Lot Filter Navalign Femoral Tulip - [id number] Implanted:Qty: 1 on 04/21/2010 at [place] [facility] Right: Inferior Vena Cava COOK : [employer] 04/12/2013 [id number] / / [id number] Armona Acetabular Liner +4 [id number] 52mm Od Implanted:Qty: 1 on 04/22/2010 at OR [facility] Right: Hip 03/16/2015 1221-36-152 / / [id number] Stem Axis Por Tpr Stdoff S6 - [id number] Implanted:Qty: 1 on 04/22/2010 at OR [facility] Right: Hip JNJ : [employer] 02/14/2020 [id number] / / [id number] Head Mtl Artic Edwardo 36mm Pl5 - [id number] Implanted:Qty: 1 on 04/22/2010 at OR [facility] Right: Hip JNJ : [employer] 12/14/2014 [id number] / / [id number] Cup Fem Acet Armona 300 52mm - [id number] Implanted:Qty: 1 on 04/22/2010 at OR [facility] Right: Hip JNJ : [employer] [id number] / / [id number] Screw Selftap 3.5x55 204.855 - [id number] Implanted:Qty: 1 on 04/22/2010 at OR [facility] Right: Hip SYNTHES 204.855 / / Screw Canc 4mm 206.065 - [id number] Implanted:Qty: 1 on 04/22/2010 at OR [facility] Right: Hip SYNTHES 206.065 / / Screw Canc Armona 6.5x50mm - [id number] Implanted:Qty: 1 on 04/22/2010 at OR [facility] Right: Hip JNJ : [employer] [id number] / / [id number] Screw Canc Armona 6.5x30mm - [id number] Implanted:Qty: 1 on 04/22/2010 at OR [facility] Right: Hip JNJ : [employer] 02/14/2020 [id number] / / [id number] Screw Selftap 3.5x55 204.855 - [id number] Implanted:Qty: 2 on 04/22/2010 at OR [facility] Right: Hip SYNTHES 204.855 / / Screw Canc 4mm 206.065 - [id number] Implanted:Qty: 1 on 04/22/2010 at OR [facility] Right: Hip SYNTHES 206.065 / / Screw Canc Armona 6.5x15mm - [id number] Implanted:Qty: 1 on 04/22/2010 at OR [facility] Right: Hip JNJ : [employer] 02/14/2020 [id number] / / [id number] Lens 20.5 [id number] - [id number] 039 - [id number] Implanted:Qty: 1 on 10/14/2020 by Lester Livingston DO at [facility] Right: Eye DUANE : SURGICAL 2025 [id number] / [id number] / Lens 20.0 [id number] - [id number] 086 - [id number] Implanted:Qty: 1 on 12/09/2020 by Lester Livingston DO at [facility] Left: Eye DUANE : SURGICAL 07/13/2025 [id number] 0 / [id number] / documented as of this encounter Visit Diagnoses Diagnosis Type 2 diabetes mellitus with hemoglobin A1c goal of less than 8.0% ([facility]) documented in this encounter Advance Directives * Full Code (Latest Code Status on File) Date Activated Date Inactivated Comments 04/22/2010 6:35 PM 04/27/2010 9:02 PM Question Answer Comments Discussion of Advance Directives occurred with: Not Discussed Care Teams Lingo Cleaner Relationship Specialty Start Date End Date Gabriele Dumas MD [address] [place] [address] [place] [phone] PCP - General Family Medicine 06/04/21 documented as of this encounter
--- OUTSIDE RECORDS SUMMARY | 2024-03-23 11:51 | External Medical Summary | Summary of Care ---
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 [employer] resending fax (Statement of Certification Physician) Provided: [phone] Received a call asking if fax was received by office. Name/Company sending fax: Nahed garcia [employer] What fax is pertaining to: (Statement of Certification Physician) Date(s) they sent request: 10/30/23, 11/07/23 and 11/15/23 Verified fax number they are sending to is correct (Y or N): Yes Callback Number for the clinic to call to verified if fax was received: [phone] * Telephone Encounter - Krissy Culver OSA - 11/07/2023 2:39 PM EDT Nahed with [facility] resending fax (Statement of Certification Physician) Provided: [phone] documented in this encounter Plan of Treatment Upcoming Encounters Date Type Department Care Team (Late st Contact Info) Description 12/18/2023 10:00 AM EST Office Visit Family [address] [place] [phone] Gabriele Dumas MD [address] [place] [address] [place] [address] 12/21/2023 10:30 AM EST Imaging Vascular Lab, [address] [place] [address] 12/21/2023 11:30 AM EST Imaging Vascular Lab, [address] [place] [address] 12/27/2023 8:00 AM EST Office Visit Pharmacy, [address] [place] [address] [place] [address] 12/27/2023 9:10 AM EST Office Visit Vascular Surgery, [address] [place] [address] Manoj Chan MD [address] [place] [address] 05/13/2024 7:20 AM EDT Office Visit Family [address] [place] [phone] Gabriele Dumas MD [address] [place] [address] [place] [address] 05/24/2024 11:00 AM EDT Office Visit Ophthalmology, [place] [address] [place] [address] Lester Livingston DO [address] [place] [address] Health Maintenance Due Date Last Done Comments [...] this encounter Medical Devices Implanted Type Area Diagrammer Device Identifier Shelf Expiration Date Model / Serial / Lot Filter Navalign Femoral Tulip - [id number] Implanted:Qty: 1 on 04/21/[place] [facility]: Inferior Vena Cava COOK : [employer] 04/12/2013 [id number] / / [id number] [place] Acetabular Liner +4 [id number] Id 52mm Od Implanted:Qty: 1 on 04/22/2010 [place] [facility] [place]: Hip 03/16/2015 [id number] / / [id number] Stem Craven Por Tpr Stdoff S6 - [id number] Implanted:Qty: 1 on 04/22/2010 at [place] [facility] Right: Hip JNJ : [facility] 02/14/2020 [id number] / / [id number] Head Mtl Artic Edwardo 36mm Pl5 - [id number] Implanted:Qty: 1 on 04/22/2010 at [place] [facility] [place]: Hip JNJ : [employer] 12/14/2014 [id number] / / [id number] Cup Fem Acet [place] 300 52mm - [id number] Implanted:Qty: 1 on 04/22/2010 at [place] [facility] [place]: Hip JNJ : [employer] [id number] / / [id number] Screw Selftap 3.5x55 204.855 - [id number] Implanted:Qty: 1 on 04/22/2010 at [place] [facility] Right: Hip SYNTHES 204.855 / / Screw Canc 4mm 206.065 - [id number] Implanted:Qty: 1 on 04/22/2010 at [facility] Right: Hip SYNTHES 206.065 / / Screw Canc Ogden 6.5x50mm - [id number] Implanted:Qty: 1 on 04/22/2010 at [facility] Right: Hip JNJ : [employer] [id number] / / [id number] Screw Canc Ogden 6.5x30mm - [id number] Implanted:Qty: 1 on 04/22/2010 at [place] [facility] [place]: Hip JNJ : [employer] 02/14/2020 [id number] / / [id number] Screw Selftap 3.5x55 204.855 - [id number] Implanted:Qty: 2 on 04/22/2010 at [place] [facility] [place]: Hip SYNTHES 204.855 / / Screw Canc 4mm 206.065 - [id number] Implanted:Qty: 1 on 04/22/2010 at [place] [facility] Right: Hip SYNTHES 206.065 / / Screw Canc Og[place] 6.5x15mm - [id number] Implanted:Qty: 1 on 04/22/2010 at [place] [facility] Right: Hip JNJ : [employer] 02/14/2020 [id number] / / [id number] Lens 20.5 [id number] - [id number] 039 - [id number] Implanted:Qty: 1 on 10/14/2020 by Lester Livingston DO at OR [facility] Right: Eye DUANE : SURGICAL 2025 [id number] / [id number] 039 / Lens 20.0 [id number] - [id number] 086 - [id number] Implanted:Qty: 1 on 12/09/2020 by Lester Livingston DO at OR [facility] Left: Eye DUANE : SURGICAL 07/13/2025 [id number] 0 / [id number] / documented as of this encounter Advance Directives * Full Code (Latest Code Status on File) Date Activated Date Inactivated Comments 04/22/2010 6:35 PM 04/27/2010 9:02 PM Question Answer Comments Discussion of Advance Directives occurred with: Not Discussed Care Teams It Solutions Sales Consultant Relationship Specialty Start Date End Date Gabriele Dumas MD [address] [place] [address] [place] [address] PCP - General Family Medicine 06/04/21 documented as of this encounter
--- OUTSIDE RECORDS SUMMARY | 2024-03-23 11:51 | External Medical Summary | Summary of Care ---
Author Name Unknown Organization [facility] Address [address] [place] [address] Phone [phone] Care Team Providers Care Manager Life Insurance Name Role Phone Gabriele Dumas MD Primary Care Provide r Reason for Visit * Reason Comments eRx-Medication Refill Encounter Details Date Type Department Care Team (Late st Contact Info) Description 12/01/2023 Refill Family Medicine [address] [phone] Gabriele Dumas MD [address] [place] [address] [place] [address] Type 2 diabetes mellitus with hemoglobin A1c goal of less than 8.0% ([facility]) Allergies Active Allergy Reactions Criticality Noted Date Comments Influenza Vaccines 01/18/2013 Guilen-[place] syndrome documented as of this encounter (statuses as of 12/03/2023) Medications Medication Sig Dispensed Refills Start Date [...] IN THE MORNING 360 Tablet 3 3 Active Glimepiride 4 MG Oral [...] MORNING DAILY 9 mL 5 4 Active Liraglutide 18 MG/3ML Subcutaneous Solution Pen-injector (Victoza)Indicat ions:Type 2 diabetes mellitus with hemoglobin A1c goal of less than 8.0% (HCC) Inject 1.8 mg under the skin in the morning. 9 mL 1 4 12/03/19 24 Discontinued documented as of this encounter (statuses as of 12/03/2023) Active Problems Problem Noted Date Diagnosed Date History of pancreatitis 11/18/2022 Chronic bilateral low back pain 05/18/2022 Acquired absence of other left toe(s) 03/16/2022 Mild nonproliferative diabet ic retinopathy of both eyes without macular edema associated with type 2 diabetes mellitus 03/16/2022 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 03/16/2022 Amputation of toe of left foot 04/28/2021 History of osteomyelitis 04/28/2021 History of Guillain-[place] sy ndrome due to 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 04/28/2021 [...] as of this encounter (statuses as of 12/03/2023) Resolved Problems Problem Noted Date Diagnosed Date [...] as of this encounter (statuses as of 12/03/2023) Immunizations No known immunizationsdocumented as of this [...] Notes * Telephone Encounter - Livia Gannon RP - 12/03/2023 9:11 AM EDTSigned Prescriptions: Disp Refills Victoza 18 MG/3ML Subcutaneous Solution Pe*9 mL 5 Sig: INJECT 1.2MG SUBCUTANEOUSLY IN THE MORNING DAILYAuthorizing Provider: Juan Antonio DUMAS User:LIVIA GANNON * Telephone Encounter - Livia Gannon RP - 12/03/2023 9:09 AM EDT Patient managed by MTM Per last visit, no med chagnes Refill authorized Thank You, Livia Gannon [facility] Clinical Pharmacist [facility] ([facility] [phone] [id number] 12/03/2023, 9:11 AM documented in this encounter Plan of Treatment Upcoming Encounters Date Type Department Care Team (Late st Contact Info) Description 12/18/2023 10:00 AM EST Office Visit Family [address] [place] [phone] Gabriele Dumas MD [address] [place] [address] [place] [address] 12/21/2023 10:30 AM EST Imaging Vascular Lab, [address] [place] [address] 12/21/2023 11:30 AM EST Imaging Vascular Lab, [address] [place] [address] 12/27/2023 8:00 AM EST Office Visit Pharmacy, [address] [place] [address] [place] [address] 12/27/2023 9:10 AM EST Office Visit Vascular Surgery, [address] [place] [address] Manoj Chan MD [address] [place] [address] 05/13/2024 7:20 AM EDT Office Visit Family [address] [place] [phone] Gabriele Dumas MD [address] [place] [address] [place] [address] 05/24/2024 11:00 AM EDT Office Visit Ophthalmology, [place] [address] [place] [address] Lester Livingston DO [address] [place] [address] Health Maintenance Due Date Last Done Comments [...] this encounter Medical Devices Implanted Type Area Opal Miner Device Identifier Shelf Expiration Date Model / Serial / Lot Filter Navalign Femoral Tulip - [id number] Implanted:Qty: 1 on 04/21/2010 at OR [facility] [place] Right: Inferior Vena Cava COOK : [employer] 04/12/2013 [id number] / / [id number] Ira Acetabular Liner +4 [id number] 52mm Od Implanted:Qty: 1 on 04/22/2010 at OR [facility] Right: Hip 03/16/2015 1221-36-152 / / [id number] Stem [place] Por Tpr Stdoff S6 - [id number] Implanted:Qty: 1 on 04/22/2010 at OR [facility] Right: Hip JNJ : [employer] 02/14/2020 [id number] / / [id number] Head Mtl Artic Edwardo 36mm Pl5 - [id number] Implanted:Qty: 1 on 04/22/2010 at OR [facility] Right: Hip JNJ : [employer] 12/14/2014 [id number] / / [id number] Cup Fem Acet Ira 300 52mm - [id number] Implanted:Qty: 1 on 04/22/2010 at OR [facility] Right: Hip JNJ : [employer] [id number] / / [id number] Screw Selftap 3.5x55 204.855 - [id number] Implanted:Qty: 1 on 04/22/2010 at OR [facility] Right: Hip SYNTHES 204.855 / / Screw Canc 4mm 206.065 - [id number] Implanted:Qty: 1 on 04/22/2010 at [facility] Right: Hip SYNTHES 206.065 / / Screw Canc Ira 6.5x50mm - [id number] Implanted:Qty: 1 on 04/22/2010 at OR [facility] Right: Hip JNJ : [employer] [id number] / / [id number] Screw Canc Ira 6.5x30mm - [id number] Implanted:Qty: 1 on 04/22/2010 at OR [facility] Right: Hip JNJ : [employer] 02/14/2020 [id number] / / [id number] Screw Selftap 3.5x55 204.855 - [id number] Implanted:Qty: 2 on 04/22/2010 at OR [facility] Right: Hip SYNTHES 204.855 / / Screw Canc 4mm 206.065 - [id number] Implanted:Qty: 1 on 04/22/2010 at OR [facility] Right: Hip SYNTHES 206.065 / / Screw Canc Ira 6.5x15mm - [id number] Implanted:Qty: 1 on 04/22/2010 at [place] [facility] Right: Hip JNJ : [employer] 02/14/2020 [id number] / / [id number] Lens 20.5 [id number] - [id number] 039 - [id number] Implanted:Qty: 1 on 10/14/2020 by Lester Livingston DO at OR [facility] Right: Eye DUANE : SURGICAL 2025 [id number] / [id number] / Lens 20.0 [id number] - [id number] 086 - [id number] Implanted:Qty: 1 on 12/09/2020 by Lester Livingston DO at OR [facility] Left: Eye DUANE : SURGICAL 07/13/2025 [id number] 0 / [id number] / documented as of this encounter Visit Diagnoses Diagnosis Type 2 diabetes mellitus with hemoglobin A1c goal of less than 8.0% (HCC) documented in this encounter Advance Directives * Full Code (Latest Code Status on File) Date Activated Date Inactivated Comments 04/22/2010 6:35 PM 04/27/2010 9:02 PM Question Answer Comments Discussion of Advance Directives occurred with: Not Discussed Care Teams Manager Life Insurance Relationship Specialty Start Date End Date Gabriele Dumas MD [address] [place] [address] [place] [address] PCP - General Family Medicine 06/04/21 documented as of this encounter
--- OUTSIDE RECORDS SUMMARY | 2024-03-23 11:51 | External Medical Summary | Summary of Care ---
Author Name Unknown Organization [facility] Address [address] [place] [address] Phone [phone] Care Team Providers Care Director Marketing Analytics Name Role Phone Gabriele Dumas MD Primary Care Provide r Reason for Visit * Reason Onset Date Comments Forms Request 11/07/2023 Encounter Details Date Type Department Care Team (Late st Contact Info) Description 11/07/2023 Telephone Family [address] [phone] Gabriele Dumas MD [address] [place] [address] [place] [phone] Forms Request Allergies Active Allergy Reactions Criticality Noted Date Comments Influenza Vaccines 01/18/2013 Guilen-[place] syndrome documented as of this encounter (statuses [...] 04/28/2021 History of osteomyelitis 04/28/2021 History of Guillain-Xenia sy ndrome due to 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 04/28/2021 [...] Calling again on the below message. [email or web address] resending fax (Statement of Certification Physician) Provided: [phone] Received a call asking if fax was received by office. Name/Company sending fax: Nahed garcia [employer] What fax is pertaining to: (Statement of Certification Physician) Date(s) they sent request: 10/30/23, 11/07/23 and 11/15/23 Verified fax number they are sending to is correct (Y or N): Yes Callback Number for the clinic to call to verified if fax was received: [phone] * Telephone Encounter - Krissy Culver OSA - 11/07/2023 2:39 PM EDT Nahed with [facility] resending fax (Statement of Certification Physician) Provided: [phone] documented in this encounter Plan of Treatment Upcoming Encounters Date Type Department Care Team (Late st Contact Info) Description 12/18/2023 10:00 AM EST Office Visit Family [address] [place] [phone] Gabriele Dumas MD [address] [place] [address] [place] [address] 12/21/2023 10:30 AM EST Imaging Vascular Lab, [address] [place] [address] 12/21/2023 11:30 AM EST Imaging Vascular Lab, [address] [place] [address] 12/27/2023 8:00 AM EST Office Visit Pharmacy, [address] [place] [address] [place] [address] 12/27/2023 9:10 AM EST Office Visit Vascular Surgery, [address] [place] [address] Manoj Chan MD [address] [place] [address] 05/13/2024 7:20 AM EDT Office Visit Family [address] [place] [phone] Gabriele Dumas MD [address] [place] [address] [place] [address] 05/24/2024 11:00 AM EDT Office Visit Ophthalmology, [place] [address] [place] [address] Lester Livingston DO [address] [place] [address] Health Maintenance Due Date Last Done Comments [...] this encounter Medical Devices Implanted Type Area Lead Teacher Device Identifier Shelf Expiration Date Model / Serial / Lot Filter Navalign Femoral Tulip - [id number] Implanted:Qty: 1 on 04/21/2010 [place] [facility] [place]: Inferior Vena Cava COOK : [employer] 04/12/2013 [id number] / / [id number] [place] Acetabular Liner +4 [id number] Id 52mm Od Implanted:Qty: 1 on 04/22/2010 at [place] [facility] Right: Hip 03/16/2015 1221-36-152 / / [id number] Stem Dooly Por Tpr Stdoff S6 - [id number] Implanted:Qty: 1 on 04/22/2010 at [place] [facility] Right: Hip JNJ : [facility] 02/14/2020 [id number] / / [id number] Head Mtl Artic Edwardo 36mm Pl5 - [id number] Implanted:Qty: 1 on 04/22/2010 at [place] [facility] Right: Hip JNJ : [employer] 12/14/2014 [id number] / / [id number] Fem Acet [place] 300 52mm - [id number] Implanted:Qty: 1 on 04/22/2010 at [place] [facility] Right: Hip JNJ : [employer] [id number] / / [id number] Screw Selftap 3.5x55 204.855 - [id number] Implanted:Qty: 1 on 04/22/2010 at [place] [facility] Right: Hip SYNTHES 204.855 / / Screw Canc 4mm 206.065 - [id number] Implanted:Qty: 1 on 04/22/2010 at [facility] Right: Hip SYNTHES 206.065 / / Screw Canc [place] 6.5x50mm - [id number] Implanted:Qty: 1 on 04/22/2010 at [facility] Right: Hip JNJ : [employer] [id number] / / [id number] Screw Canc [place] 6.5x30mm - [id number] Implanted:Qty: 1 on 04/22/2010 at [place] [facility] Right: Hip JNJ : [employer] 02/14/2020 [id number] / / [id number] Screw Selftap 3.5x55 204.855 - [id number] Implanted:Qty: 2 on 04/22/2010 at [place] [facility] Right: Hip SYNTHES 204.855 / / Screw Canc 4mm 206.065 - [id number] Implanted:Qty: 1 on 04/22/2010 at [place] [facility] Right: Hip SYNTHES 206.065 / / Screw Canc [place] 6.5x15mm - [id number] Implanted:Qty: 1 on 04/22/2010 at [place] [facility] Right: Hip JNJ : [employer] 02/14/2020 [id number] / / [id number] Lens 20.5 [id number] - [id number] - [id number] Implanted:Qty: 1 on 10/14/2020 by Lester Livingston DO at OR [facility] Right: Eye DUANE : SURGICAL 2025 [id number] / [id number] / Lens 20.0 [id number] - [id number] 086 - [id number] Implanted:Qty: 1 on 12/09/2020 by Lester Livingston DO at OR [facility] Left: Eye DUANE : SURGICAL 07/13/2025 [id number] / [id number] / documented as of this encounter Advance Directives * Full Code (Latest Code Status on File) Date Activated Date Inactivated Comments 04/22/2010 6:35 PM 04/27/2010 9:02 PM Question Answer Comments Discussion of Advance Directives occurred with: Not Discussed Care Teams Director Marketing Analytics Relationship Specialty Start Date End Date Gabriele Dumas MD [address] [place] [address] [place] [phone] PCP - General Family Medicine 06/04/21 documented as of this encounter
--- OUTSIDE RECORDS SUMMARY | 2024-03-23 11:52 | External Medical Summary | Summary of Care ---
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 90 Tablet 5 04/06/2022 Active Aspirin EC 81 MG Oral Tablet Delayed ReleaseIndications:PA D (peripheral artery disease) (HCC) Take 1 Tablet by mouth in the morning. 100 Tablet 3 05/18/2022 Active Gabapentin 100 MG Oral Capsule (Neurontin)Indication s:Chronic bilateral low back pain, unspecified whether sciatica present Take 1 Capsule by mouth in the morning and 1 Capsule before bedtime. 180 Capsule 1 05/18/2022 Active OneTouch Delica Lancets 33G Use to test blood sugars once daily DxE11.9 100 Each 3 10/04/2022 Active Naproxen 500 MG Oral Tablet (Naprosyn)Indications :Pain in joint of right shoulder Take 1 Tablet by mouth 2 times a day with morning and evening meals. 14 Tablet 10/11/2022 Active metFORMIN HCl ER 500 MG Oral Tablet Extended Release 24 Hour (Glucophage XR)Indications:Type 2 diabetes mellitus with hemoglobin A1c goal of less than 8.0% (HCC) TAKE 4 TABLETS BY MOUTH ONCE DAILY IN THE MORNING 360 Tablet 3 12/26/2022 Active Glimepiride 4 MG Oral Tablet (Amaryl)Indications:T ype 2 diabetes mellitus with hemoglobin A1c goal of less than 8.0% (HCC) Take 1 Tablet by mouth in the morning and 1 Tablet before bedtime. 180 Tablet 2 06/02/2023 Active Pantoprazole Sodium 40 MG Oral Tablet Delayed Release (Protonix) TAKE 1 TABLET BY MOUTH IN THE MORNING 90 Tablet 1 06/14/2023 Active Dapagliflozin Propanediol 10 MG Oral Tablet [...] the morning. 9 mL 1 09/06/2023 Active Metamucil Fiber Oral Tablet Chewable Take by mouth. Activ e OneTouch Verio In Vitro Strip (Glucose Blood)Indications:Typ e 2 diabetes mellitus with hemoglobin A1c goal of less than 8.0% (HCC) Use to test blood sugars once daily DxE11.9 100 Strip 3 11/06/2023 Active documented as of this encounter (statuses as of 11/08/2023) Active Problems Problem Noted Date Diagnosed Date History of pancreatitis 11/18/2022 Chronic bilateral low back pain 05/18/2022 Acquired absence of other left toe(s) 03/16/2022 Mild nonproliferative diabet ic retinopathy of both eyes without macular edema associated with type 2 diabetes mellitus 03/16/2022 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 03/16/2022 Amputation of toe of left foot 04/28/2021 History of osteomyelitis 04/28/2021 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 04/28/2021 [...] as of this encounter (statuses as of 11/08/2023) Resolved Problems Problem Noted Date Diagnosed Date [...] as of this encounter (statuses as of 11/08/2023) Immunizations No known immunizationsdocumented as of this [...] encounter Miscellaneous Notes * Telephone Encounter - Chelsea Dupree OSA - 11/08/2023 10:31 AM EDT Pt is calling needs a script for baby Asprin bc he is schedule for surgery next Monday and the surgeon said make should he takes it please call pt back at [phone] documented in this encounter Plan of Treatment Upcoming Encounters Date Type Department Care Team (Late st Contact Info) Description 12/18/2023 10:00 AM EST Office Visit Family Medicine [address] [place] [phone] Gabriele Dumas MD [address] [place] [address] [place] [address] 12/21/2023 10:30 AM EST Imaging Vascular Lab, [address] [place] [address] 12/21/2023 11:30 AM EST Imaging Vascular Lab, [address] [address] 12/27/2023 8:00 AM EST Office Visit Pharmacy, [address] [place] [address] [place] [address] 12/27/2023 9:10 AM EST Office Visit Vascular Surgery, [address] [address] Manoj Chan MD [address] [place] [address] 05/13/2024 7:20 AM EDT Office Visit Family Medicine [address] [place] [phone] Gabriele Dumas MD [address] [place] [address] [place] [address] 05/23/2024 9:30 AM EDT Office Visit Ophthalmology, [address] [place] [address] Lester Livingston, DO [address] [place] [address] Health Maintenance Due Date Last Done Comments Pneumococcal Vaccine: 65+ Years (1 of 2 - PCV) 06/16/1956 DTap/Tdap Vaccines (1 - Tdap) 1968 Colonoscopy 1994 Fecal Occult Blood Test 1994 Sigmoidoscopy 1994 Adult Wellness Visit 06/16/2015 Depression Screening 06/04/2022 06/04/2021 COVID-19 Vaccine (1 - 2023- season) 2023 Diabetic Foot Exam [...] this encounter Medical Devices Implanted Type Area Raw Material Planner Device Identifier Shelf Expiration Date Model / Serial / Lot Filter Navalign Femoral Tulip - [id number] Implanted:Qty: 1 on 04/21/2010 [place] [facility] [place]: Inferior Vena Cava COOK : [employer] INC 04/12/2013 [id number] / / [id number] [place] Acetabular Liner +4 [id number] Id 52mm Od Implanted:Qty: 1 on 04/22/2010 at [place] [facility] [place] Right: Hip 03/16/2015 1221-36-152 / / [id number] Stem [place] Por Tpr Stdoff S6 - [id number] Implanted:Qty: 1 on 04/22/2010 at [place] [facility] [place] Right: Hip JNJ : [employer] 02/14/2020 [id number] / / [id number] Head Mtl Artic Edwardo 36mm Pl5 - [id number] Implanted:Qty: 1 on 04/22/2010 at [place] [facility] Right: Hip JNJ : [employer] 12/14/2014 [id number] / / [id number] Fem Acet [place] 300 52mm - [id number] Implanted:Qty: 1 on 04/22/2010 at [place] [facility] Right: Hip JNJ : [employer] [id number] / / [id number] Screw Selftap 3.5x55 204.855 - [id number] Implanted:Qty: 1 on 04/22/2010 at [place] [facility] [place] Right: Hip SYNTHES 204.855 / / Screw Canc 4mm 206.065 - [id number] Implanted:Qty: 1 on 04/22/2010 at [place] [facility] [place] Right: Hip SYNTHES 206.065 / / Screw Canc [place] 6.5x50mm - [id number] Implanted:Qty: 1 on 04/22/2010 at [place] [facility] Right: Hip JNJ : [employer] [id number] / / [id number] Screw Canc [place] 6.5x30mm - [id number] Implanted:Qty: 1 on 04/22/2010 at [place] [facility] Right: Hip JNJ : [employer] 02/14/2020 [id number] / / [id number] Screw Selftap 3.5x55 204.855 - [id number] Implanted:Qty: 2 on 04/22/2010 at [place] [facility] Right: Hip SYNTHES 204.855 / / Screw Canc 4mm 206.065 - [id number] Implanted:Qty: 1 on 04/22/2010 at [place] [facility] Right: Hip SYNTHES 206.065 / / Screw Canc [place] 6.5x15mm - [id number] Implanted:Qty: 1 on 04/22/2010 at [place] [facility] Right: Hip JNJ : [employer] 02/14/2020 [id number] / / [id number] Lens 20.5 [id number] - [id number] 039 - [id number] Implanted:Qty: 1 on 10/14/2020 by Lester Livingston DO at OR [facility] Right: Eye DUANE : SURGICAL 2025 [id number] / [id number] 039 / Lens 20.0 [id number] - [id number] 086 - [id number] Implanted:Qty: 1 on 12/09/2020 by Lester Livingston DO at OR [facility] Left: Eye DUANE : SURGICAL 07/13/2025 [id number] 0 / [id number] 086 / documented as of this encounter Advance Directives * Full Code (Latest Code Status on File) Date Activated Date Inactivated Comments 04/22/2010 6:35 PM 04/27/2010 9:02 PM Question Answer Comments Discussion of Advance Directives occurred with: Not Discussed Care Teams Meat Hanger Relationship Specialty Start Date End Date Gabriele Dumas MD [address] [place] [address] [place] [address] PCP - General Family Medicine 06/04/21 documented as of this encounter
--- OUTSIDE RECORDS SUMMARY | 2024-03-23 11:52 | External Medical Summary | Summary of Care ---
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 90 Tablet 5 04/06/2022 Active Gabapentin 100 MG Oral Capsule (Neurontin)Indicat ions:Chronic bilateral low back pain, unspecified whether sciatica present Take 1 Capsule by mouth in the morning and 1 Capsule before bedtime. 180 Capsule 1 05/18/2022 Active OneTouch Delica Lancets 33G Use to test blood sugars once daily DxE11.9 100 Each 3 10/04/2022 Active Naproxen 500 MG Oral Tablet (Naprosyn)Indicati [...] 12/26/2022 Active Glimepiride 4 MG Oral Tablet (Amaryl)Indication [...] Fiber Oral Tablet Chewable Take by mouth. Active OneTouch Verio In Vitro Strip (Glucose Blood)Indications: Type 2 diabetes mellitus with hemoglobin A1c goal of less than 8.0% (HCC) Use to test blood sugars once daily DxE11.9 100 Strip 3 11/06/2023 Active Aspirin EC 81 MG Oral Tablet Delayed ReleaseIndications :PAD (peripheral artery disease) (HCC) Take 1 Tablet by mouth in the morning. 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 [place], [place]ELCHOR [address] [place] [phone] Manoj Chan MD [address] [place] [address] 12/18/2023 10:00 AM EST Office Visit Family Medicine [address] [place] [address] Gabriele Dumas MD [address] [place] [address] [place] [address] 12/21/2023 10:30 AM EST Imaging Vascular Lab, [facility] [address] [place] [address] 12/21/2023 11:30 AM EST Imaging Vascular Lab, [address] [place] [address] 12/27/2023 8:00 AM EST Office Visit Pharmacy, [address] [place] [address] [place] [address] 12/27/2023 9:10 AM EST Office Visit Vascular Surgery, [address] [place] [address] Manoj Chan MD [address] [place] [address] 05/13/2024 7:20 AM EDT Office Visit Family Medicine [address] [place] [phone] Gabriele Dumas MD [address] [place] [address] [place] [address] 05/23/2024 9:30 AM EDT Office Visit Ophthalmology, [address] [place] [address] Lester Livingston DO [address] [facility] [place] [address] Scheduled Procedures Name Priority Associated Diagnoses Date/Ti me CATHETER PLACEMENT, ABDOMINA L-LOWER EXTREMITY, FIRST ORDER BRANCH PAD (peripheral artery disease) ([facility]) IMAGING SUPERVISION & INTERPRETATION EXTREMITY UNILATERAL PAD (peripheral artery disease) ([facility]) IMAGING SUPERVISION & INTERPRETATION ABDOMINAL AO PAD (peripheral artery disease) ([facility]) TIB/PERON ART. REVASC W/STENT+ANGIO, FIRST PAD (peripheral artery disease) (HCC) Health Maintenance Due Date Last Done Comments [...] this encounter Medical Devices Implanted Type Area Warble Saw Operator Device Identifier Shelf Expiration Date Model / Serial / Lot Filter Navalign Femoral Tulip - [id number] Implanted:Qty: 1 on 04/21/[address] [facility] [facility] Right: Inferior Vena Cava COOK : [employer] 04/12/2013 [id number] / / [id number] [place] Acetabular Liner +4 [id number] Id 52mm Od Implanted:Qty: 1 on 04/22/[address] [facility] Right: Hip 03/16/2015 1221-36-152 / / [id number] Stem Delaplane Por Tpr Stdoff S6 - [id number] Implanted:Qty: 1 on 04/22/[address] [facility] Right: Hip JNJ : [employer] 02/14/2020 [id number] / / [id number] Head Mtl Artic Edwardo 36mm Pl5 - [id number] Implanted:Qty: 1 on 04/22/[address] [facility] Right: Hip JNJ : [employer] 12/14/2014 [id number] / / [id number] Fem Acet [place] 300 52mm - [id number] Implanted:Qty: 1 on 04/22/[address] [facility] Right: Hip JNJ : [employer] [id number] / / [id number] Screw Selftap 3.5x55 204.855 - [id number] Implanted:Qty: 1 on 04/22/[address] [facility] [place] Right: Hip SYNTHES 204.855 / / Screw Canc 4mm 206.065 - [id number] Implanted:Qty: 1 on 04/22/[address] [facility] Right: Hip SYNTHES 206.065 / / Screw Canc [place] 6.5x50mm - [id number] Implanted:Qty: 1 on 04/22/[address] [facility] Right: Hip JNJ : [employer] [id number] / / [id number] Screw Canc [place] 6.5x30mm - [id number] Implanted:Qty: 1 on 04/22/[address] [facility] Right: Hip JNJ : [employer] 02/14/2020 [id number] / / [id number] Screw Selftap 3.5x55 204.855 - [id number] Implanted:Qty: 2 on 04/22/2010 at [facility] Right: Hip SYNTHES 204.855 / / Screw Canc 4mm 206.065 - [id number] Implanted:Qty: 1 on 04/22/[address] [facility] [place] Right: Hip SYNTHES 206.065 / / Screw Canc [place] 6.5x15mm - [id number] Implanted:Qty: 1 on 04/22/[address] [facility] Right: Hip JNJ : [employer] 02/14/2020 [id number] / / [id number] Lens 20.5 [id number] - [id number] 039 - [id number] Implanted:Qty: 1 on 10/14/2020 by Lester Livingston DO at OR [facility] Right: Eye DUANE : SURGICAL 2025 [id number] / [id number] / Lens 20.0 [id number] - [id number] 086 - [id number] Implanted:Qty: 1 on 12/09/2020 by Lester Livingston DO at OR [facility] Left: Eye DUANE : SURGICAL 07/13/2025 [id number] / [id number] / documented as of this encounter Advance Directives * Full Code (Latest Code Status on File) Date Activated Date Inactivated Comments 04/22/2010 6:35 PM 04/27/2010 9:02 PM Question Answer Comments Discussion of Advance Directives occurred with: Not Discussed Care Teams Packing Checker Relationship Specialty Start Date End Date Gabriele Dumas MD [address] [place] [address] [place] [phone] PCP - General Family Medicine 06/04/21 documented as of this encounter
--- OUTSIDE RECORDS SUMMARY | 2024-03-23 11:52 | External Medical Summary | Summary of Care ---
Author Name Unknown Organization [facility] Address [address] [place] [address] Phone [phone] Care Team Providers Care Wall Crane Operator Name Role Phone Gabriele Dumas MD Primary Care Provide r Reason for Visit * Reason Onset Date Comments Advice 11/02/2023 Encounter Details Date Type Department Care Team (Late st Contact Info) Description 11/02/2023 Telephone Vascular Surg [facility] [place] [address], [place] [id number] Services, [facility] [address] [place] [address] Advice Allergies Active Allergy Reactions Criticality Noted Date Comments 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 Had R 3rd toe amputated r/t gangrene last week at [facility]. Had TOREY 10/31/23 at [facility]. Had CTA runoff 10/09/23 at [facility]. I requested patient bring us a disc of CTA. Scheduled to be seen 11/08/23 at [facility]. Secretaries, Please STAT request images of CTA runoff 10/09/23 at [facility]. SARAH Mejia 11/02/2023 11:14 AM * Telephone Encounter - Delmis Torres OSA - 11/02/2023 8:08 AM EDT Pt called regarding his testing that he had done yesterday - he is concerned there maybe a blood clot. He is asking for a call back regarding the test results. He has an appointment 11/[address] [facility] [address] Chan. I did offer an appointment for pt to be seen in [place] - pt would like to have acall back. Please call pt on cell phone. documented in this encounter Plan of Treatment Upcoming Encounters Date Type Department Care Team (Late st Contact Info) Description 11/08/2023 8:30 AM EDT Office Visit Vascular Surgery, [facility] [address] [place] [address] Manoj Chan MD [address] [facility] [place] [address] 12/18/2023 10:00 AM EST Office Visit Family [address] [place] [phone] Gabriele Dumas MD [address] [place] [address] [place] [address] 12/27/2023 8:00 AM EST Office Visit Pharmacy, [address] [place] [address] [place] [address] 05/13/2024 7:20 AM EDT Office Visit Family Medicine [address] [place] [phone] Gabriele Dumas MD [address] [place] [address] [place] [address] 05/23/2024 9:30 AM EDT Office Visit Ophthalmology, [facility] [address] [place] [address] Lester Livingston, DO [address] [place] [address] Health Maintenance Due Date Last Done Comments Pneumococcal Vaccine: 65+ Years (1 of 2 - PCV) 06/16/1956 DTap/Tdap Vaccines (1 - Tdap) 1968 Colonoscopy 1994 Fecal Occult Blood Test 1994 Sigmoidoscopy 1994 Adult Wellness Visit 06/16/2015 Depression Screening 06/04/2022 06/04/2021 COVID-19 Vaccine ( - 2023- season) 2023 [...] this encounter Medical Devices Implanted Type Area Investigator Claims Device Identifier Shelf Expiration Date Model / Serial / Lot Filter Navalign Femoral Tulip - [id number] [place]:Q[place] [facility] [place] Inferior Vena Cava COOK : [employer] 04/12/2013 [id number] / / [id number] [place] Acetabular Liner +4 [id number] 52mm Od Implanted:Qty: 1 on 04/22/2010 [place] [facility] [place]: Hip 03/16/2015 1221-36-152 / / [id number] Stem [place] Por Tpr Stdoff S6 - [id number] Implanted:Qty: 1 on 04/22/2010 [place] [facility]: Hip JNJ : [employer] 02/14/2020 [id number] / / [id number] Head Mtl Artic Edward[place] 36mm Pl5 - [id number] Implanted:Qty: 1 on 04/22/2010 [place] [facility] [place]: Hip JNJ : [facility] 12/14/2014 [id number] / / [id number] Cup Fem Acet [place] 300 52mm - [id number] Implanted:Qty: 1 on 04/22/2010 [place] [facility] [place]: Hip JNJ : [facility] [id number] / / [id number] Screw Selftap 3.5x55 204.855 - [id number] Implanted:Qty: 1 on 04/22/2010 [place] [facility]: Hip SYNTHES 204.855 / / Screw Canc 4mm 206.065 - [id number] Implanted:Qty: 1 on 04/22/2010 [place] [facility] [place]: Hip SYNTHES 206.065 / / Screw Canc [place] 6.5x50mm - [id number] Implanted:Qty: 1 on 04/22/2010 [place] [facility]: Hip JNJ : [employer] [id number] / / [id number] Screw Canc [place] 6.5x30mm - [id number] Implanted:Qty: 1 on 04/22/2010 [place] [facility]: Hip JNJ : [employer] 02/14/2020 [id number] / / [id number] Screw [place] 3.5x55 204.855 - [id number] Implanted:Qty: 2 on 04/22/2010 [place] [facility]: Hip SYNTHES 204.855 / / Screw Canc 4mm 206.065 - [id number] Implanted:Qty: 1 on 04/22/2010 [place] [facility] [place]: Hip SYNTHES 206.065 / / Screw Canc [place] 6.5x15mm - [id number] Implanted:Qty: 1 on 04/22/2010 [place] [facility]: Hip JNJ : [employer] 02/14/2020 [id number] / / [id number] Lens 20.5 [id number] - [id number] - [id number] Implanted:Qty: 1 on 10/14/2020 by Lester Livingston DO at OR [facility] Right: Eye DUAEN : SURGICAL 2025 [id number] / [id number] / Lens 20.0 [id number] - [id number] 086 - [id number] Implanted:Qty: 1 on 12/09/2020 by Lester Livingston DO at OR [facility] Left: Eye DUANE : SURGICAL 07/13/2025 [id number] 0 / [id number] / documented as of this encounter Advance Directives * Full Code (Latest Code Status on File) Date Activated Date Inactivated Comments 04/22/2010 6:35 PM 04/27/2010 9:02 PM Question Answer Comments Discussion of Advance Directives occurred with: Not Discussed Care Teams Wall Crane Operator Relationship Specialty Start Date End Date Gabriele Dumas MD [address] [place] [address] [place] [phone] PCP - General Family Medicine 06/04/21 documented as of this encounter
--- OUTSIDE RECORDS SUMMARY | 2024-03-23 11:52 | External Medical Summary | Summary of Care ---
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 documented as of this encounter (statuses as of 11/07/2023) Medications Medication Sig Dispensed Refills Start Date [...] as of this encounter (statuses as of 11/07/2023) Active Problems Problem Noted Date Diagnosed Date History of pancreatitis 11/18/2022 Chronic bilateral low back pain 05/18/2022 Acquired absence of other left toe(s) 03/16/2022 Mild nonproliferative diabet ic retinopathy of both eyes without macular edema associated with type 2 diabetes mellitus 03/16/2022 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 03/16/2022 Amputation of toe of left foot 04/28/2021 History of osteomyelitis 04/28/2021 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 04/28/2021 [...] as of this encounter (statuses as of 11/07/2023) Resolved Problems Problem Noted Date Diagnosed Date [...] as of this encounter (statuses as of 11/07/2023) Immunizations No known immunizationsdocumented as of this [...] - 11/07/2023 2:39 PM EDT Nahed with [facility] resending fax (Statement of Certification Physician) Provided: [phone] documented in this encounter Plan of Treatment Upcoming Encounters Date Type Department Care Team (Late st Contact Info) Description 11/08/2023 8:30 AM EDT Office Visit Vascular Surgery, [facility] [address] [facility] [place] [address] Manoj Chan MD [address] [facility] [place] [address] 12/18/2023 10:00 AM EST Office Visit Family Medicine [facility] [place] [place] [address] Gabriele Dumas MD [address] [place] [address] [place] [address] 12/27/2023 8:00 AM EST Office Visit Pharmacy, [address] [place] [address] [place] [address] 05/13/2024 7:20 AM EDT Office Visit Family Medicine [address] [place] [phone] Gabriele Dumas MD [address] [place] [address] [place] [address] 05/23/2024 9:30 AM EDT Office Visit Ophthalmology, [facility] 132 [facility] [place] [address] Lester Livingston, DO [address] [facility] [address] Health Maintenance Due Date Last Done Comments [...] this encounter Medical Devices Implanted Type Area Riprap Placer Device Identifier Shelf Expiration Date Model / Serial / Lot Filter Navalign Femoral Tulip - [id number] [place]ed:Q[place] 1 [place] [facility] [place] Inferior Vena Cava COOK : [employer] 04/12/2013 [id number] / / [id number] [place] Acetabular Liner +4 [id number] 52mm Od Implanted:Qty: 1 on 04/22/2010 [place] [facility]: Hip 03/16/2015 1221-36-152 / / [id number] Stem [place] Por Tpr Stdoff S6 - [id number] Implanted:Qty: 1 on 04/22/2010 at [facility] Right: Hip JNJ : [employer] 02/14/2020 [id number] / / [id number] Head Mtl Artic [place] 36mm Pl5 - [id number] Implanted:Qty: 1 on 04[place]22[place] [facility]: Hip JNJ : [employer] 12/14/2014 [id number] / / [id number] Cup Fem Acet [place] 300 52mm - [id number] Implanted:Qty: 1 on 04/22/2010 at [facility] Right: Hip JNJ : [employer] [id number] / / [id number] Screw Selftap 3.5x55 204.855 - [id number] Implanted:Qty: 1 on 04/22/2010 at [facility] Right: Hip SYNTHES 204.855 / / Screw Canc 4mm 206.065 - [id number] Implanted:Qty: 1 on 04/22/2010 [place] [facility] [place]: Hip SYNTHES 206.065 / / Screw Canc [place] 6.5x50mm - [id number] Implanted:Qty: 1 on 04[place]22[place] [facility]: Hip JNJ : [employer] [id number] / / [id number] Screw Canc [place] 6.5x30mm - [id number] Implanted:Qty: 1 [place] 04[place]22/[place] [facility] [place]: Hip JNJ : [employer] 02/14/2020 [id number] / / [id number] Screw Selftap 3.5x55 204.855 - [id number] Implanted:Qty: 2 on 04/22/2010 [place] [facility]: Hip SYNTHES 204.855 / / Screw Canc 4mm 206.065 - [id number] Implanted:Qty: 1 on 04/22/2010 [place] [facility] [place]: Hip SYNTHES 206.065 / / Screw Canc [place] 6.5x15mm - [id number] Implanted:Qty: 1 on 04[place]22/2010 [place] [facility]: Hip JNJ : [employer] 02/14/2020 [id number] / / [id number] Lens 20.5 [id number] - [id number] 039 - [id number] Implanted:Qty: 1 on 10/14/2020 by Lester Livingston DO at [facility] Right: Eye DUANE : SURGICAL 2025 [id number] 5 / [id number] / Lens 20.0 [id number] - [id number] - [id number] Implanted:Qty: 1 on 12/09/2020 by Lester Livingston DO at [facility] Left: Eye DUANE : SURGICAL 07/13/2025 [id number] 0 / [id number] / documented as of this encounter Advance Directives * Full Code (Latest Code Status on File) Date Activated Date Inactivated Comments 04/22/2010 6:35 PM 04/27/2010 9:02 PM Question Answer Comments Discussion of Advance Directives occurred with: Not Discussed Care Teams Hogshead Hand Relationship Specialty Start Date End Date Gabriele Dumas MD [address] [place] [address] [place] [address] PCP - General Family Medicine 06/04/21 documented as of this encounter
--- OUTSIDE RECORDS SUMMARY | 2024-03-23 11:52 | External Medical Summary | Summary of Care ---
Author Name Unknown Organization [facility] Address [address] [place] [address] Phone [phone] Care Team Providers Care Double Head Machine Operator Name Role Phone Gabriele Dumas MD Primary Care Provide r Reason for Visit * Reason Onset Date Comments Advice 11/02/2023 Encounter Details Date Type Department Care Team (Late st Contact Info) Description 11/02/2023 Telephone Vascular Surg [facility] [place] [address] [place], [place] [phone] Services, [facility] [address] [place] [address] Advice Allergies Active Allergy Reactions Criticality Noted Date Comments Influenza Vaccines 01/18/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 Had TOREY 10/31/23 at [facility]. Had CTA runoff 10/09/23 at [facility]. I requested patient bring us a disc of CTA. Scheduled to be seen 11/08/23 at [facility]. Secretaries, Please STAT request images of CTA runoff 10/09/23 at [facility]. SARAH Mejia 11/02/2023 11:14 AM * Telephone [...] appointment for pt to be seen in [place] - pt would like to have acall back. Please call pt on cell phone. documented in this encounter Plan of Treatment Upcoming Encounters Date Type Department Care Team (Late st Contact Info) Description 11/08/2023 8:30 AM EDT Office Visit Vascular Surgery, [facility] [address] [facility] [place] [address] [facility] [address] [facility] [address] 12/18/2023 10:00 AM EST Office Visit [address] [phone] Gabriele Dumas MD [address] [place] [address] [place] [address] 12/27/2023 8:00 AM EST Office Visit Pharmacy, [address] [place] [address] [place] [address] 05/13/2024 7:20 AM EDT Office Visit [address] [place] [phone] Gabriele Dumas MD [address] [place] [address] [place] [address] 05/23/2024 9:30 AM EDT Office Visit Ophthalmology, [facility] 132 [facility] [place] [address] Lester Livingston DO [facility] [place] [address] Health Maintenance Due Date Last Done Comments [...] this encounter Medical Devices Implanted Type Area Coffee Shop Manager Device Identifier Shelf Expiration Date Model / Serial / Lot Filter Navalign Femoral Tulip - [id number] Implanted:Qty: 1 on 04/21/2010 at [place] [facility] Right: Inferior Vena Cava COOK : [employer] 04/12/2013 [id number] / / [id number] [place] Acetabular Liner +4 [id number] 52mm Od Implanted:Qty: 1 on 04/22/2010 at [place] [facility] Right: Hip 03/16/2015 1221-36-152 / / [id number] Stem [place] Por Tpr Stdoff S6 - [id number] Implanted:Qty: 1 on 04/22/2010 at [place] [facility] Right: Hip JNJ : [employer] 02/14/2020 [id number] / / [id number] Head Mtl Artic [place] 36mm Pl5 - [id number] Implanted:Qty: 1 on 04/22/2010 at [place] [facility] Right: Hip JNJ : [employer] 12/14/2014 [id number] / / [id number] Cup Fem Acet [place] 300 52mm - [id number] Implanted:Qty: 1 on 04/22/2010 at [place] [facility] Right: Hip JNJ : [employer] [id number] / / [id number] Screw [place] 3.5x55 204.855 - [id number] Implanted:Qty: 1 on 04/22/2010 at [place] [facility] Right: Hip SYNTHES 204.855 / / Screw Canc 4mm 206.065 - [id number] Implanted:Qty: 1 on 04/22/2010 at [place] [facility] Right: Hip SYNTHES 206.065 / / Screw Canc [place] 6.5x50mm - [id number] Implanted:Qty: 1 on 04/22/2010 at [place] [facility] Right: Hip JNJ : [employer] [id number] / / [id number] Screw Canc [place] 6.5x30mm - [id number] Implanted:Qty: 1 on 04/22/2010 at [place] [facility] Right: Hip JNJ : [employer] 02/14/2020 [id number] / / [id number] Screw Selftap 3.5x55 204.855 - [id number] Implanted:Qty: 2 on 04/22/2010 at [place] [facility] Right: Hip SYNTHES 204.855 / / Screw Canc 4mm 206.065 - [id number] Implanted:Qty: 1 on 04/22/2010 at [place] [facility] Right: Hip SYNTHES 206.065 / / Screw Canc [place] 6.5x15mm - [id number] Implanted:Qty: 1 on 04/22/2010 at [place] [facility] Right: Hip JNJ : [employer] 02/14/2020 [id number] / / [id number] Lens 20.5 [id number] - [id number] 039 - [id number] Implanted:Qty: 1 on 10/14/2020 by Lester Livingston DO at [facility] Right: Eye DUANE : SURGICAL 2025 [id number] / [id number] / Lens 20.0 [id number] - [id number] 086 - [id number] Implanted:Qty: 1 on 12/09/2020 by Lester Livingston DO at OR [facility] Left: Eye DUANE : SURGICAL 07/13/2025 [id number] 0 / [id number] / documented as of this encounter Advance Directives * Full Code (Latest Code Status on File) Date Activated Date Inactivated Comments 04/22/2010 6:35 PM 04/27/2010 9:02 PM Question Answer Comments Discussion of Advance Directives occurred with: Not Discussed Care Teams Double Head Machine Operator Relationship Specialty Start Date End Date Gabriele Dumas MD [address] [place] [address] [place] [phone] PCP - General Family Medicine 06/04/21 documented as of this encounter
--- OUTSIDE RECORDS SUMMARY | 2024-03-23 11:52 | External Medical Summary | Summary of Care ---
Author Name Unknown Organization [facility] Address [address] [place] [address] Phone [phone] Care Team Providers Care Link Trainer Name Role Phone Tha Dumas MD Primary Care Provide r Reason for Visit * Reason Onset Date Comments Med Request 11/08/2023 Encounter Details Date Type Department Care Team (Late st Contact Info) Description 11/08/2023 Telephone Family [address] [phone] Tha Dumas MD [address] [place] [address] [place] [phone] Med Request Allergies Active Allergy Reactions Criticality Noted Date Comments Influenza Vaccines 01/18/2013 Guilen-Suring syndrome documented as of this encounter (statuses [...] Active Dapagliflozin Propanediol 10 MG Oral Tablet (Farxiga)Nilotio ns:Type 2 diabetes mellitus with hemoglobin A1c [...] the morning. 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 04/28/2021 [...] Telephone Encounter - Tha Dumas MD - 11/08/2023 1:28 PM EDT Med sent - myg sent * Addendum Note - Tha Dumas MD - 11/08/2023 1:27 PM EDTAddended by: THA DUMAS on: 11/08/2023 01:27 PM Modules accepted: Orders * Addendum Note - Jere Mendiola RN - 11/08/2023 11:48 AM EDTAddended by: JERE MENDIOLA on: 11/08/2023 11:48 AM Modules accepted: Orders * Telephone Encounter - Chelsea Dupree OSA - 11/08/2023 10:31 AM EDT Pt is calling needs a script for baby Asprin bc he is schedule for surgery next Monday and the surgeon said make should he takes it please call pt back at [phone] documented in this encounter Plan of Treatment Upcoming Encounters Date Type Department Care Team (Late st Contact Info) Description 12/18/2023 10:00 AM EST Office [place] [address] [place] [phone] Tha Dumas MD [address] [place] [address] [place] [address] 12/21/2023 10:30 AM EST Imaging Vascular Lab, [address] [place] [address] 12/21/2023 11:30 AM EST Imaging Vascular Lab, [address] [place] [address] 12/27/2023 8:00 AM EST Office Visit Pharmacy, [address] [place] [address] [place] [address] 12/27/2023 9:10 AM EST Office Visit Vascular Surgery, [address] [place] [address] [facility] [address] 05/13/2024 7:20 AM EDT Office Visit Family [address] [place] [phone] Tha Dumas MD [address] [place] [address] [place] [address] 05/23/2024 9:30 AM EDT Office Visit Ophthalmology, [facility] [address] [place] [address] Lester Livingston, DO [address] [facility] [place] [address] Health Maintenance Due Date Last Done Comments [...] this encounter Medical Devices Implanted Type Area Event Planner Device Identifier Shelf Expiration Date Model / Serial / Lot Filter Navalign Femoral Tulip - [id number] Implanted:Qty: 1 on 04/21/2010 [place] [facility] [place]: Inferior Vena Cava COOK : [employer] 04/12/2013 [id number] / / [id number] [place] Acetabular Liner +4 [id number] 52mm Od Implanted:Qty: 1 on 04/22/2010 at [place] [facility] Right: Hip 03/16/2015 1221-36-152 / / [id number] Stem [place] Por Tpr Stdoff S6 - [id number] Implanted:Qty: 1 on 04/22/2010 at [place] [facility] Right: Hip JNJ : [facility] [employer] 02/14/2020 [id number] / / [id number] Head Mtl Artic Edwardo 36mm Pl5 - [id number] Implanted:Qty: 1 on 04/22/2010 at [place] [facility] [place]: Hip JNJ : [employer] 12/14/2014 [id number] / / [id number] Fem Acet [place] 300 52mm - [id number] Implanted:Qty: 1 on 04/22/2010 at [place] [facility] [place]: Hip JNJ : [employer] [id number] / / [id number] Screw Selftap 3.5x55 204.855 - [id number] Implanted:Qty: 1 on 04/22/2010 at [place] [facility] Right: Hip SYNTHES 204.855 / / Screw Canc 4mm 206.065 - [id number] Implanted:Qty: 1 on 04/22/2010 at [facility] Right: Hip SYNTHES 206.065 / / Screw Canc [place] 6.5x50mm - [id number] Implanted:Qty: 1 on 04/22/2010 at [facility] Right: Hip JNJ : [employer] [id number] / / [id number] Screw Canc [place] 6.5x30mm - [id number] Implanted:Qty: 1 on 04/22/2010 at [place] [facility] [place] Hip JNJ : [employer] 02/14/2020 [id number] / / [id number] Screw Selftap 3.5x55 204.855 - [id number] Implanted:Qty: 2 on 04/22/2010 at [place] [facility] Right: Hip SYNTHES 204.855 / / Screw Canc 4mm 206.065 - [id number] Implanted:Qty: 1 on 04/22/2010 at [place] [facility] Right: Hip SYNTHES 206.065 / / Screw Canc [place] 6.5x15mm - [id number] Implanted:Qty: 1 on 04/22/2010 at [place] [facility] [place]: Hip JNJ : [employer] 02/14/2020 [id number] / / [id number] Lens 20.5 [id number] - [id number] 039 - [id number] Implanted:Qty: 1 on 10/14/2020 by Lester Livingston DO at OR [facility] Right: Eye DUANE : SURGICAL 2025 [id number] 5 / [id number] 039 / Lens 20.0 [id number] - [id number] 086 - [id number] Implanted:Qty: 1 on 12/09/2020 by Lester Livingston DO at OR [facility] Left: Eye DUANE : SURGICAL 07/13/2025 [id number] 0 / [id number] / documented as of this encounter Visit Diagnoses Diagnosis PAD (peripheral artery disease) (HCC) Peripheral vascular disease, unspecified documented in this encounter Advance Directives * Full Code (Latest Code Status on File) Date Activated Date Inactivated Comments 04/22/2010 6:35 PM 04/27/2010 9:02 PM Question Answer Comments Discussion of Advance Directives occurred with: Not Discussed Care Teams Link Trainer Relationship Specialty Start Date End Date Tha Dumas MD [address] [place] [address] [place] [phone] PCP - General Family Medicine 06/04/21 documented as of this encounter
--- OUTSIDE RECORDS SUMMARY | 2024-03-23 11:52 | External Medical Summary | Summary of Care ---
Author Name Unknown Organization [facility] Address [address] Care Team Providers Care Swine Extension Field Specialist Name Role Phone Gabriele Dumas MD Primary Care Provide r Reason for Visit * Reason Onset Date Comments Blood Sugar Problem 10/17/2023 Encounter Details Date Type Department Care Team (Late st Contact Info) Description 10/17/2023 Telephone Pharmacy, [facility] [address] [facility] [place] [phone] [address] [place] [address] Blood Sugar Problem Allergies Active Allergy Reactions Criticality Noted Date Comments Influenza Vaccines 01/18/2013 Guilen-Unicoi syndrome documented as of this encounter (statuses as of 11/13/2023) Medications Medication Sig Dispensed Refills Start Date [...] the morning. 9 mL 1 09/06/2023 Active documented as of this encounter (statuses as of 11/13/2023) Active Problems Problem Noted Date Diagnosed Date History of pancreatitis 11/18/2022 Chronic bilateral low back pain 05/18/2022 Acquired absence of other left toe(s) 03/16/2022 Mild nonproliferative diabet ic retinopathy of both eyes without macular edema associated with type 2 diabetes mellitus 03/16/2022 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 03/16/2022 Amputation of toe of left foot 04/28/2021 History of osteomyelitis 04/28/2021 History of Guillain-Unicoi sy ndrome due to 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 04/28/2021 [...] as of this encounter (statuses as of 11/13/2023) Resolved Problems Problem Noted Date Diagnosed Date [...] as of this encounter (statuses as of 11/13/2023) Immunizations No known immunizationsdocumented as of this [...] Team (Late st Contact Info) Description 11/15/2023 2:46 PM EDT Hospital Encounter [place] [facility] [facility] [address] [place] [phone] Manjo Chan MD [address] [place] [address] 11/15/2023 2:46 PM EDT - 11/15/2023 5:31 PM EDT Surgery [place] [facility] [facility] [address] [place] [phone] Manoj Chan MD [address] [place], [place] [phone] CATHETER PLACEMENT, ABDOMINAL-LOWER EXTREMITY, FIRST ORDER BRANCH 12/18/2023 10:00 AM EST Office Visit Family Medicine [address] [place] [phone] Gabriele Dumas MD [address] [place] [address] [place] [address] 12/21/2023 10:30 AM EST Imaging Vascular Lab, [address] [place] [address] 12/21/2023 11:30 AM EST Imaging Vascular Lab, [address] [place] [address] 12/27/2023 8:00 AM EST Office Visit Pharmacy, [address] [place] [address] [place] [address] 12/27/2023 9:10 AM EST Office Visit Vascular Surgery, [address] [place] [address] Manoj Chan MD [address] [place] [address] 05/13/2024 7:20 AM EDT Office Visit Family Medicine [address] [place] [phone] Gabriele Dumas MD [address] [place] [address] [place] [address] 05/23/2024 9:30 AM EDT Office Visit Ophthalmology, [facility] [address] [facility] [place] [address] Lester Livingston DO [facility] [address] Scheduled Procedures Name Priority Associated Diagnoses Date/Ti me CATHETER PLACEMENT, ABDOMINAL-LOWER EXTREMITY, FIRST ORDER BRANCH PAD (peripheral artery disease) ([facility]) 11/15/2023 2:46 PM EDT IMAGING SUPERVISION & INTERPRETATION EXTREMITY UNILATERAL PAD (peripheral artery disease) ([facility]) 11/15/2023 2:46 PM EDT IMAGING SUPERVISION & INTERPRETATION ABDOMINAL AO PAD (peripheral artery disease) ([facility]) 11/15/2023 2:46 PM EDT TIB/PERON ART. REVASC W/STENT+ANGIO, FIRST PAD (peripheral artery disease) ([facility]) 11/15/2023 2:46 PM EDT Health Maintenance Due Date Last [...] this encounter Medical Devices Implanted Type Area Regional Training Manager Device Identifier Shelf Expiration Date Model / Serial / Lot Filter Navalign Femoral Tulip - [id number] Implanted:Qty: 1 on 04/21/2010 [place] [facility] [place]: Inferior Vena Cava COOK : [employer] 04/12/2013 [id number] / / [id number] [place] Acetabular Liner +4 [id number] 52mm Od Implanted:Qty: 1 on 04/22/2010 [place] [facility] [place]: Hip 03/16/2015 1221-36-152 / / [id number] Stem [place] Por Tpr Stdoff S6 - [id number] Implanted:Qty: 1 on 04/22/2010 [place] [facility] [place]: Hip JNJ : [employer] 02/14/2020 [id number] / / [id number] Head Mtl Artic Edwardo 36mm Pl5 - [id number] Implanted:Qty: 1 on 04/22/2010 [place] [facility] [place]: Hip JNJ : [employer] 12/14/2014 [id number] / / [id number] Cup Fem Acet [place] 300 52mm - [id number] Implanted:Qty: 1 on 04/22/2010 [place] [facility] [place]: Hip JNJ : [employer] [id number] / / [id number] Screw Selftap 3.5x55 204.855 - [id number] Implanted:Qty: 1 on 04/22/2010 [place] [facility] [place]: Hip SYNTHES 204.855 / / Screw Canc 4mm 206.065 - [id number] Implanted:Qty: 1 on 04/22/2010 [place] [facility] [place]: Hip SYNTHES 206.065 / / Screw Canc [place] 6.5x50mm - [id number] Implanted:Qty: 1 on 04/22/2010 [place] [facility] [place]: Hip JNJ : [employer] [id number] / / [id number] Screw Canc [place] 6.5x30mm - [id number] Implanted:Qty: 1 on 04/22/2010 [place] [facility] [place]: Hip JNJ : [employer] 02/14/2020 [id number] / / [id number] Screw Selftap 3.5x55 204.855 - [id number] Implanted:Qty: 2 on 04/22/2010 [place] [facility] [place]: Hip SYNTHES 204.855 / / Screw Canc 4mm 206.065 - [id number] Implanted:Qty: 1 on 04/22/2010 at [place] [facility] Right: Hip SYNTHES 206.065 / / Screw Canc [place] 6.5x15mm - [id number] Implanted:Qty: 1 on 04/22/2010 at [place] [facility] Right: Hip JNJ : [employer] 02/14/2020 [id number] / / [id number] Lens 20.5 [id number] - [id number] 039 - [id number] Implanted:Qty: 1 on 10/14/2020 by Lester Livingston DO at OR [facility] Right: Eye DUANE : SURGICAL 2025 [id number] 5 / [id number] / Lens 20.0 [id number] - [id number] 086 - [id number] Implanted:Qty: 1 on 12/09/2020 by Lester Livingston DO at OR [facility] Left: Eye DUANE : SURGICAL 07/13/2025 [id number] 0 / [id number] / documented as of this encounter Advance Directives * Full Code (Latest Code Status on File) Date Activated Date Inactivated Comments 04/22/2010 6:35 PM 04/27/2010 9:02 PM Question Answer Comments Discussion of Advance Directives occurred with: Not Discussed Care Teams Swine Extension Field Specialist Relationship Specialty Start Date End Date Gabriele Dumas MD [address] [place] [address] [place] [address] PCP - General Family Medicine 06/04/21 documented as of this encounter
--- OUTSIDE RECORDS SUMMARY | 2024-03-23 11:52 | External Medical Summary | Summary of Care ---
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 (statuses [...] 04/28/2021 History of osteomyelitis 04/28/2021 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 04/28/2021 [...] encounter Miscellaneous Notes * Addendum Note - Niki Mendiola RN - 11/08/2023 11:48 AM EDTAddended by: NIKI MENDIOLA on: 11/08/2023 11:48 AM Modules accepted: Orders * Telephone Encounter - Chelsea Dupree OSA - 11/08/2023 10:31 AM EDT Pt is calling needs a script for baby Asprin bc he is schedule for surgery next Monday and the surgeon said make should he takes it please call pt back at [phone] documented in this encounter Plan of Treatment Upcoming Encounters Date Type Department Care Team (Late st Contact Info) Description 12/18/2023 10:00 AM EST Office Visit Family Medicine [facility] [address] [place] [phone] Gabriele Dumas MD [address] [place] [address] [place] [phone] 12/21/2023 10:30 AM EST Imaging Vascular Lab, [facility] [address] [facility] [address] [facility] [place] [address] 12/21/2023 11:30 AM EST Imaging Vascular Lab, [address] [place] [address] 12/27/2023 8:00 AM EST Office Visit Pharmacy, [address] [place] [address] [place] [address] 12/27/2023 9:10 AM EST Office Visit Vascular Surgery, [address] [place] [address] Manoj Chan MD [address] [place] [address] 05/13/2024 7:20 AM EDT Office Visit Family Medicine [address] [place] [phone] Gabriele Dumas MD [address] [place] [address] [place] [address] 05/23/2024 9:30 AM EDT Office Visit Ophthalmology, [address] [place] [address] Lester Livingston, DO 21 [facility] [place] [address] Health Maintenance Due Date Last Done Comments [...] this encounter Medical Devices Implanted Type Area Patent Prosecution Paralegal Device Identifier Shelf Expiration Date Model / Serial / Lot Filter Navalign Femoral Tulip - [id number] Implanted:Qty: 1 on 04/21/2010 at [place] [facility] Right: Inferior Vena Cava COOK : [employer] 04/12/2013 [id number] / / [id number] [place] Acetabular Liner +4 [id number] 52mm Od Implanted:Qty: 1 on 04/22/2010 at [place] [facility] Right: Hip 03/16/2015 1221-36-152 / / [id number] Stem Gem Por Tpr Stdoff S6 - [id number] Implanted:Qty: 1 on 04/22/2010 at [place] [facility] Right: Hip JNJ : [employer] 02/14/2020 [id number] / / [id number] Head Mtl Artic Edwardo 36mm Pl5 - [id number] Implanted:Qty: 1 on 04/22/2010 at [place] [facility] Right: Hip JNJ : [employer] 12/14/2014 [id number] / / [id number] Cup Fem Acet [place] 300 52mm - [id number] Implanted:Qty: 1 on 04/22/2010 at [place] [facility] Right: Hip JNJ : [employer] [id number] / / [id number] Screw Selftap 3.5x55 204.855 - [id number] Implanted:Qty: 1 on 04/22/2010 at [place] [facility] Right: Hip SYNTHES 204.855 / / Screw Canc 4mm 206.065 - [id number] Implanted:Qty: 1 on 04/22/2010 at [place] [facility] Right: Hip SYNTHES 206.065 / / Screw Canc [place] 6.5x50mm - [id number] Implanted:Qty: 1 on 04/22/2010 at [place] [facility] Right: Hip JNJ : [employer] [id number] / / [id number] Screw Canc [place] 6.5x30mm - [id number] Implanted:Qty: 1 on 04/22/2010 at [place] [facility] Right: Hip JNJ : [employer] 02/14/2020 [id number] / / [id number] Screw Selftap 3.5x55 204.855 - [id number] Implanted:Qty: 2 on 04/22/2010 at OR [facility] Right: Hip SYNTHES 204.855 / / Screw Canc 4mm 206.065 - [id number] Implanted:Qty: 1 on 04/22/2010 at OR [facility] Right: Hip SYNTHES 206.065 / / Screw Canc [place] 6.5x15mm - [id number] Implanted:Qty: 1 on 04/22/2010 at [place] [facility] Right: Hip JNJ : [employer] 02/14/2020 [id number] / / [id number] Lens 20.5 [id number] - [id number] 039 - [id number] Implanted:Qty: 1 on 10/14/2020 by Lester Livingston DO at OR [facility] Right: Eye DUANE : SURGICAL 2025 [id number] 5 / [id number] / Lens 20.0 [id number] - [id number] 086 - [id number] Implanted:Qty: 1 on 12/09/2020 by Lester Livingston DO at OR [facility] Left: Eye DUANE : SURGICAL 07/13/2025 [id number] 0 / [id number] / documented as of this encounter Visit Diagnoses Diagnosis PAD (peripheral artery disease) (HCC) Peripheral vascular disease, unspecified documented in this encounter Advance Directives * Full Code (Latest Code Status on File) Date Activated Date Inactivated Comments 04/22/2010 6:35 PM 04/27/2010 9:02 PM Question Answer Comments Discussion of Advance Directives occurred with: Not Discussed Care Teams Neurosurgeon Relationship Specialty Start Date End Date Gabriele Dumas MD [address] [place] [address] [place] [address] PCP - General Family Medicine 06/04/21 documented as of this encounter
--- OUTSIDE RECORDS SUMMARY | 2024-03-23 11:52 | External Medical Summary | Summary of Care ---
Author Name Unknown Organization [facility] Address [address] [place] [address] Phone [phone] Care Team Providers Care Graining Machine Operator Name Role Phone Gabriele Dumas MD Primary Care Provide r Reason for Visit * Reason Onset Date Comments Medication Refill 11/03/2023 Encounter Details Date Type Department Care Team (Late st Contact Info) Description 11/03/2023 Refill Family [address] [place] [phone] Gabriele Dumas MD [address] [place] [address] [place] [phone] Type 2 diabetes mellitus with hemoglobin A1c goal of less than 8.0% ([facility]) Allergies Active Allergy Reactions Criticality Noted Date Comments Influenza Vaccines 01/18/2013 Guilen-Cors[place]ana syndrome documented as of this encounter (statuses as of 11/06/2023) Medications Medication Sig Dispensed Refills Start Date End Date Status Atorvastatin Calcium 40 MG Oral Tablet (Lipitor) Take 1 Tablet by mouth in the morning. 90 Tablet 5 04/06/2022 Active Aspirin EC 81 MG Oral Tablet Delayed ReleaseIndications :PAD (peripheral artery disease) (HCC) Take 1 Tablet by mouth in the morning. 100 Tablet 3 05/18/2022 Active Gabapentin 100 MG Oral Capsule (Neurontin)Indicat [...] of less than 8.0% ([facility]) Use to test blood sugars once daily DxE11.9 100 Strip 3 11/06/2023 Active OneTouch Verio In Vitro Strip (Glucose Blood)Indications: Type 2 diabetes mellitus with hemoglobin A1c goal of less than 8.0% (HCC) Use to test blood sugars once daily DxE11.9 100 Strip 3 05/01/2023 11/03/2023 Discontinue d(Refill) documented as of this encounter (statuses as of 11/06/2023) Active Problems Problem Noted Date Diagnosed Date History of pancreatitis 11/18/2022 Chronic bilateral low back pain 05/18/2022 Acquired absence of other left toe(s) 03/16/2022 Mild nonproliferative diabet ic retinopathy of both eyes without macular edema associated with type 2 diabetes mellitus 03/16/2022 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 (Household - for [...] encounter Miscellaneous Notes * Telephone Encounter - Gabriele Dumas MD - 11/06/2023 9:52 AM EDT Signed Prescriptions: Disp Refills OneTouch Verio In Vitro Strip (Glucose Blo*100 St*3 Sig: Use to test blood sugars once daily DxE11.9 Authorizing Provider: GABRIELE DUMAS * Telephone Encounter - Chitra Santos LPN - 11/06/2023 9:47 AM EDTPending Prescriptions: Disp Refills OneTouch Verio In Vitro Strip (Glucose Blo*100 St*3 Sig: Use to test blood sugars once daily DxE11.9 * Telephone Encounter - Brent Rosa Zee, PRAVEEN - 11/03/2023 9:31 AM EDT Did you pend patient's preferred pharmacy and medication before forwarding?no Pharmacy: [facility] [address] [place] [address] Pending Prescriptions: Disp Refills OneTouch Verio In Vitro Strip (Glucose Bl*100 St*3 Sig: Use to test blood sugars once daily DxE11.9 Last Visit: 10/25/2023 (in office), Visit date not found (telemedicine) Next Visit: 12/18/2023 If no future appointments scheduled, and last appointment is greater than a year ago, please schedule patient for a follow-up appointment Last date the medication was ordered: 05.01.2023 Is this request for a controlled substance?No Urine Drug Screen:No results found for this or any previous visit. Patient Phone Numbers Labs: Lab Results Component Value Date/Time CREAT 0.7 10/25/2023 11:30 AM CREAT 0.97 10/09/2023 12:00 AM CREAT 0.6 02/20/2020 10:48 AM POTASSIUM 4.4 10/25/2023 11:30 AM POTASSIUM 4.4 10/09/2023 12:00 AM POTASSIUM 4.6 02/20/2020 10:48 AM TSH 2.080 03/01/2021 12:00 AM TSH 8.20 (H) 09/17/2015 08:08 AM LDL 36 03/17/2023 09:51 AM LDL 86 03/01/2021 12:00 AM LDL 109 02/20/2020 10:48 AM LDL 159 (H) 09/17/2015 08:08 AM LDLCALC 82.20 03/01/2021 12:00 AM ALT 24 09/04/2023 10:46 AM ALT 17 09/17/2015 08:08 AM HGBA1C 9.6 (H) 10/25/2023 11:30 AM HGBA1C 7.3 (A) 03/01/2021 12:00 AM HGBA1C 7.9 (H) 02/20/2020 10:48 AM documented in this encounter Plan of Treatment Upcoming Encounters Date Type Department Care Team (Late st Contact Info) Description 11/08/2023 8:30 AM EDT Office Visit Vascular Surgery, [facility] [address] [facility] [place] [address] Manoj Chan MD [address] [facility] [address] 12/18/2023 10:00 AM EST Office Visit Family Medicine [address] [place] [phone] Gabriele Dumas MD [address] [place] [address] [place] [phone] 12/27/2023 8:00 AM EST Office Visit Pharmacy, [address] [place] [address] [place] [address] 05/13/2024 7:20 AM EDT Office Visit Family Medicine [address] [place] [phone] Gabriele Dumas MD [address] [place] [address] [place] [phone] 05/23/2024 9:30 AM EDT Office Visit Ophthalmology, [facility] [address] [facility] [place] [address] Lester Livingston, DO [address] [facility] [place] [address] Health Maintenance Due Date Last Done Comments [...] this encounter Medical Devices Implanted Type Area Laborer [employer] Device Identifier Shelf Expiration Date Model / Serial / Lot Filter Navalign Femoral Tulip - [id number] Implanted:Qty: 1 on 04/21/2010 at [facility] Right: Inferior Vena Cava COOK : [employer] 04/12/2013 [id number] / / [id number] Mountainair Acetabular Liner +4 [id number] 52mm Od Implanted:Qty: 1 on 04/22/2010 at OR [facility] Right: Hip 03/16/2015 [id number] / / [id number] Stem Lea Por Tpr Stdoff S6 - [id number] Implanted:Qty: 1 on 04/22/2010 at OR [facility] Right: Hip JNJ : [employer] 02/14/2020 [id number] / / [id number] Head Mtl Artic Edwardo 36mm Pl5 - [id number] Implanted:Qty: 1 on 04/22/2010 at OR [facility] Right: Hip JNJ : [facility] 12/14/2014 [id number] / / [id number] Cup Fem Acet Mountainair 300 52mm - [id number] Implanted:Qty: 1 on 04/22/2010 at OR [facility] Right: Hip JNJ : [employer] [id number] / / [id number] Screw Selftap 3.5x55 204.855 - [id number] Implanted:Qty: 1 on 04/22/2010 at OR [facility] Right: Hip SYNTHES 204.855 / / Screw Canc 4mm 206.065 - [id number] Implanted:Qty: 1 on 04/22/2010 at OR [facility] Right: Hip SYNTHES 206.065 / / Screw Canc Mountainair 6.5x50mm - [id number] Implanted:Qty: 1 on 04/22/2010 at OR [facility] Right: Hip JNJ : [employer] [id number] / / [id number] Screw Canc Mountainair 6.5x30mm - [id number] Implanted:Qty: 1 on 04/22/2010 at OR [facility] Right: Hip JNJ : [employer] 02/14/2020 [id number] / / [id number] Screw Selftap 3.5x55 204.855 - [id number] Implanted:Qty: 2 on 04/22/2010 at OR [facility] Right: Hip SYNTHES 204.855 / / Screw Canc 4mm 206.065 - [id number] Implanted:Qty: 1 on 04/22/2010 at OR [facility] Right: Hip SYNTHES 206.065 / / Screw Canc Mountainair 6.5x15mm - [id number] Implanted:Qty: 1 on 04/22/2010 at OR [facility] Right: Hip JNJ : [employer] 02/14/2020 [id number] / / [id number] Lens 20.5 [id number] - [id number] - [id number] Implanted:Qty: 1 on 10/14/2020 by Lester Livingston DO at OR [facility] Right: Eye DUANE : SURGICAL 2025 [id number] / [id number] / Lens 20.0 [id number] - [id number] 086 - [id number] Implanted:Qty: 1 on 12/09/2020 by Lester Livingston DO at OR [facility] Left: Eye DUANE : SURGICAL 07/13/2025 [id number] / [id number] / documented as of this encounter Visit Diagnoses Diagnosis Type 2 diabetes mellitus with hemoglobin A1c goal of less than 8.0% (HCC) documented in this encounter Advance Directives * Full Code (Latest Code Status on File) Date Activated Date Inactivated Comments 04/22/2010 6:35 PM 04/27/2010 9:02 PM Question Answer Comments Discussion of Advance Directives occurred with: Not Discussed Care Teams Graining Machine Operator Relationship Specialty Start Date End Date Gabriele uDmas MD [address] [place] [address] [place] [phone] PCP - General Family Medicine 06/04/21 documented as of this encounter
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
--- OUTSIDE RECORDS SUMMARY | 2024-03-23 11:52 | External Medical Summary | Summary of Care ---
Author Name Unknown Organization [facility] Address [address] [place] [address] Phone [phone] Care Team Providers Care Manager Landscape Name Role Phone Gabriele Dumas MD Primary Care Provide r Reason for Visit * Reason Onset Date Comments Med Request 11/08/2023 Encounter Details Date Type Department Care Team (Late st Contact Info) Description 11/08/2023 Telephone Family [address] [phone] Gabriele Dumas MD [address] [place] [address] [place] [phone] Med Request Allergies Active Allergy Reactions Criticality Noted Date Comments Influenza Vaccines 01/18/2013 Guilen-[place] syndrome documented as of this encounter (statuses [...] 04/28/2021 History of osteomyelitis 04/28/2021 History of Guillain-[place] sy ndrome due to 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 04/28/2021 [...] encounter Miscellaneous Notes * Addendum Note - Gabriele Dumas MD - 11/08/2023 1:27 PM EDTAddended by: GABRIELE DUMAS on: 11/08/2023 01:27 PM Modules accepted: Orders * Addendum Note - Niki Mendiola RN [...] takes it please call pt back at [phone] documented in this encounter Plan of Treatment Upcoming Encounters Date Type Department Care Team (Late st Contact Info) Description 12/18/2023 10:00 AM EST Office Visit [address] [place] [phone] Gabriele Dumas MD [address] [place] [address] [place] [address] 12/21/2023 10:30 AM EST Imaging Vascular Lab, [address] [place] [address] 12/21/2023 11:30 AM EST Imaging Vascular Lab, [address] [place] [address] 12/27/2023 8:00 AM EST Office Visit Pharmacy, [address] [place] [address] [place] [address] 12/27/2023 9:10 AM EST Office Visit Vascular Surgery, [address] [place] [address] Manoj Chan MD [address] [place] [address] 05/13/2024 7:20 AM EDT Office Visit [address] [place] [phone] Gabriele Dumas MD [address] [place] [address] [place] [address] 05/23/2024 9:30 AM EDT Office Visit Ophthalmology, [address] [place] [address] Lester Livingston, DO 21 [facility] [place] [address] Health Maintenance Due Date Last Done Comments [...] this encounter Medical Devices Implanted Type Area Car Pincher Device Identifier Shelf Expiration Date Model / Serial / Lot Filter Navalign Femoral Tulip - [id number] [place]ed:Q[place] 1 [place] [facility] [place]: Inferior Vena Cava COOK : [employer] 04/12/2013 [id number] / / [id number] [place] Acetabular Liner +4 [id number] 52mm Od Implanted:Qty: 1 on 04/22/2010 [place] [facility] [place]: Hip 03/16/2015 1221-36-152 / / [id number] Stem [place] Por Tpr Stdoff S6 - [id number] Implanted:Qty: 1 on 04[place]22/2010 [place] [facility] [place]: Hip JNJ : [employer] 02/14/2020 [id number] / / [id number] Head Mtl Artic Edwardo 36mm Pl5 - [id number] Implanted:Qty: 1 on 04/22/2010 at [facility] Right: Hip JNJ : [facility] 12/14/2014 [id number] / / [id number] Cup Fem Acet [place] 300 52mm - [id number] Implanted:Qty: 1 on 04/22/2010 [place] [facility] [place] Hip JNJ : [employer] [id number] / / [id number] Screw [place] 3.5x55 204.855 - [id number] Implanted:Qty: 1 on 04/22/2010 [place] [facility] [place]: Hip SYNTHES 204.855 / / Screw Canc 4mm 206.065 - [id number] Implanted:Qty: 1 on 04/22/2010 [place] [facility] [place]: Hip SYNTHES 206.065 / / Screw Canc [place] 6.5x50mm - [id number] Implanted:Qty: 1 on 04/22/2010 [place] [facility] [place]: Hip JNJ : [employer] [id number] / / [id number] Screw Canc [place] 6.5x30mm - [id number] Implanted:Qty: 1 on 04/22/2010 at [facility] Right: Hip JNJ : [employer] 02/14/2020 [id number] / / [id number] Screw [place] 3.5x55 204.855 - [id number] Implanted:Qty: 2 on 04/22/2010 [place] [facility] [place]: Hip SYNTHES 204.855 / / Screw Canc 4mm 206.065 - [id number] Implanted:Qty: 1 on 04/22/2010 [place] [facility] [place]: Hip SYNTHES 206.065 / / Screw Canc [place] 6.5x15mm - [id number] Implanted:Qty: 1 on 04/22/2010 [place] [facility] [place]: Hip JNJ : [employer] 02/14/2020 [id number] / / [id number] Lens 20.5 [id number] - [id number] - [id number] Implanted:Qty: 1 on 10/14/2020 by Lester Livingston DO at [facility] Right: Eye DUANE : SURGICAL 2025 [id number] / [id number] / Lens 20.0 [id number] - [id number] 086 - [id number] Implanted:Qty: 1 on 12/09/2020 by Lester Livingston DO at OR [facility] Left: Eye DUANE : SURGICAL 07/13/2025 [id number] 0 / [id number] / documented as of this encounter Visit Diagnoses Diagnosis PAD (peripheral artery disease) (HCC) Peripheral vascular disease, unspecified documented in this encounter Advance Directives * Full Code (Latest Code Status on File) Date Activated Date Inactivated Comments 04/22/2010 6:35 PM 04/27/2010 9:02 PM Question Answer Comments Discussion of Advance Directives occurred with: Not Discussed Care Teams Manager Landscape Relationship Specialty Start Date End Date Gabriele Dumas MD [address] [place] [address] [place] [phone] PCP - General Family Medicine 06/04/21 documented as of this encounter
--- OUTSIDE RECORDS SUMMARY | 2024-03-23 11:52 | External Medical Summary | Summary of Care ---
Author Name Unknown Organization [facility] Address [address] [place] [address] Phone [phone] Care Team Providers Care Track Repairer Name Role Phone Gabriele Dumas MD Primary Care Provide r Reason for Visit * Reason Onset Date Comments transfer of records 11/08/2023 Encounter Details Date Type Department Care Team (Late st Contact Info) Description 11/08/2023 Telephone Family [address] [phone] Gabriele Dumas MD [address] [place] [address] [place] [phone] transfer of records Allergies Active Allergy Reactions Criticality Noted Date Comments Influenza Vaccines 01/18/2013 Guilen-[place] syndrome documented as of this encounter (statuses as of 11/08/2023) Medications Medication Sig Dispensed Refills Start Date End Date Status Atorvastatin Calcium 40 MG Oral Tablet (Lipitor) Take 1 Tablet by mouth in the morning. 90 Tablet 5 04/06/2022 Active Gabapentin 100 MG Oral Capsule (Neurontin)Indication [...] History of osteomyelitis 04/28/2021 History of Guillain-[place] sy ndrome due to 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 04/28/2021 [...] encounter Miscellaneous Notes * Telephone Encounter - Jackelyn Kyle OSA - 11/08/2023 2:32 PM EDT Pt would like records sent to [facility] for continued of care Thank you Forward to [facility] documented in this encounter Plan of Treatment Upcoming Encounters Date Type Department Care Team (Late st Contact Info) Description 12/18/2023 10:00 AM EST Office Visit Family Medicine [address] [place] [phone] Gabriele Dumas MD [address] [place] [address] [place] [address] 12/21/2023 10:30 AM EST Imaging Vascular Lab, [address] [place] [address] 12/21/2023 11:30 AM EST Imaging Vascular Lab, [address] [place] [address] 12/27/2023 8:00 AM EST Office Visit Pharmacy, [address] [place] [address] [place] [address] 12/27/2023 9:10 AM EST Office Visit Vascular Surgery, [facility] [address] [facility] [place] [address] Manoj Chan MD [address] [place] [address] 05/13/2024 7:20 AM EDT Office Visit Family Medicine [address] [place] [phone] Gabriele Dumas MD [address] [place] [address] [place] [address] 05/23/2024 9:30 AM EDT Office Visit Ophthalmology, [facility] [address] [facility] [place] [address] Lester Livingston, DO 21 [facility] [place] [address] Health Maintenance Due Date Last Done Comments [...] this encounter Medical Devices Implanted Type Area Utilization Review Specialist Device Identifier Shelf Expiration Date Model / Serial / Lot Filter Navalign Femoral Tulip - [id number] Implanted:Qty: 1 on 04/21/2010 at [place] [facility] Right: Inferior Vena Cava COOK : [employer] 04/12/2013 [id number] / / [id number] [place] Acetabular Liner +4 [id number] 52mm Od Implanted:Qty: 1 on 04/22/2010 at [place] [facility] Right: Hip 03/16/2015 1221-36-152 / / [id number] Stem [place] Por Tpr Stdoff S6 - [id number] Implanted:Qty: 1 on 04/22/2010 at [place] [facility] Right: Hip JNJ : [employer] 02/14/2020 [id number] / / [id number] Head Mtl Artic [place] 36mm Pl5 - [id number] Implanted:Qty: 1 on 04/22/2010 at [place] [facility] Right: Hip JNJ : [employer] 12/14/2014 [id number] / / [id number] Cup Fem Acet [place] 300 52mm - [id number] Implanted:Qty: 1 on 04/22/2010 at [place] [facility] Right: Hip JNJ : [employer] [id number] / / [id number] Screw [place] 3.5x55 204.855 - [id number] Implanted:Qty: 1 on 04/22/2010 at [place] [facility] Right: Hip SYNTHES 204.855 / / Screw Canc 4mm 206.065 - [id number] Implanted:Qty: 1 on 04/22/2010 at [place] [facility] Right: Hip SYNTHES 206.065 / / Screw Canc [place] 6.5x50mm - [id number] Implanted:Qty: 1 on 04/22/2010 at [place] [facility] Right: Hip JNJ : [employer] [id number] / / [id number] Screw Canc [place] 6.5x30mm - [id number] Implanted:Qty: 1 on 04/22/2010 at [place] [facility] Right: Hip JNJ : [employer] 02/14/2020 [id number] / / [id number] Screw [place] 3.5x55 204.855 - [id number] Implanted:Qty: 2 on 04/22/2010 at [place] [facility] Right: Hip SYNTHES 204.855 / / Screw Canc 4mm 206.065 - [id number] Implanted:Qty: 1 on 04/22/2010 at [place] [facility] Right: Hip SYNTHES 206.065 / / Screw Canc [place] 6.5x15mm - [id number] Implanted:Qty: 1 on 04/22/2010 at [place] [facility] Right: Hip JNJ : [employer] 02/14/2020 [id number] / / [id number] Lens 20.5 [id number] - [id number] 039 - [id number] Implanted:Qty: 1 on 10/14/2020 by Lester Livingston DO at OR [facility] Right: Eye DUANE : SURGICAL 2025 [id number] 5 / [id number] / Lens 20.0 [id number] - [id number] 086 - [id number] Implanted:Qty: 1 on 12/09/2020 by Lester Livingston DO at OR [facility] Left: Eye DUANE : SURGICAL 07/13/2025 [id number] 0 / [id number] / documented as of this encounter Advance Directives * Full Code (Latest Code Status on File) Date Activated Date Inactivated Comments 04/22/2010 6:35 PM 04/27/2010 9:02 PM Question Answer Comments Discussion of Advance Directives occurred with: Not Discussed Care Teams Track Repairer Relationship Specialty Start Date End Date Gabriele Dumas MD [address] [place] [address] [place] [address] PCP - General Family Medicine 06/04/21 documented as of this encounter
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
--- OUTSIDE RECORDS SUMMARY | 2024-03-23 11:53 | External Medical Summary | Summary of Care ---
Author Name Unknown Organization [facility] Address [address] [place] [address] Phone [phone] Care Team Providers Care Chief School Finance Officer Name Role Phone Gabriele Dumas MD Primary Care Provide r Encounter Details Date Type Department Care Team (Late st Contact Info) Description 10/09/2023 Result Scan Unspecified Department <No scans attached> Allergies Active Allergy Reactions Criticality Noted Date Comments Influenza Vaccines 01/18/2013 Guilen-[place] syndrome documented as of this encounter (statuses as of 10/10/2023) Medications Medication Sig Dispensed Refills Start Date [...] as of this encounter (statuses as of 10/10/2023) Active Problems Problem Noted Date Diagnosed Date [...] as of this encounter (statuses as of 10/10/2023) Resolved Problems Problem Noted Date Diagnosed Date [...] as of this encounter (statuses as of 10/10/2023) Immunizations No known immunizationsdocumented as of this [...] Care Team (Late st Contact Info) Description 10/27/2023 7:00 AM EDT Office Visit Pharmacy, [address] [place] [address] [place] [address] 10/31/2023 7:30 AM EDT Imaging Vascular Lab, [facility] [address] [place] [address] 11/08/2023 8:30 AM EDT Office Visit Vascular Surgery, [address] [place] [address] Manoj Chan MD [address] [place] [address] 05/13/2024 7:20 AM EDT Office Visit Family Medicine [address] [place] [phone] Gabriele Dmuas MD [address] [place] [address] [place] [address] 05/23/2024 9:30 AM EDT Office Visit Ophthalmology, [address] [place] [address] Lester Livingston, DO [address] [facility] [place] [address] Health Maintenance Due Date Last Done Comments Pneumococcal Vaccine: 65+ Years (1 of 2 - PCV) 06/16/1956 DTap/Tdap Vaccines (1 - Tdap) 1968 Colonoscopy 1994 Fecal Occult Blood Test 1994 Sigmoidoscopy 1994 Adult Wellness Visit 06/16/2015 Depression Screening 06/04/2022 06/04/2021 COVID-19 Vaccine ( - season) 2022 Albumin/Creatinine Ratio 03/16/2023 023, 04/28/2021, 02/20/2020, Additional history exists Diabetic Foot Exam 02/28/2024 02/27/2023, 0 03/16/2022, 02/20/2020, Additional history exists HbA1c 03/06/2024 09/04/2023, 02/0 03/2023, 11/21/2022, Additional history exists Diabetic Eye Exam 09/20/2024 09/21/2023, , 09/21/2023, Additional history exists GFR 10/08/2024 10/09/2023, 08/14, 06/12/2023, Additional history exists Cologuard 06/16/2025 06/16/2022, 2 [...] this encounter Medical Devices Implanted Type Area Director Of Marketing Analytics Device Identifier Shelf Expiration Date Model / Serial / Lot Filter Navalign Femoral Tulip - [id number] Implanted:Qty: 1 on 04/21/2010 at [place] [facility] Right: Inferior Vena Cava COOK : [employer] 04/12/2013 [id number] / / [id number] [place] Acetabular Liner +4 [id number] 52mm Od Implanted:Qty: 1 on 04/22/2010 at [place] [facility] Right: Hip 03/16/2015 [id number] / / [id number] Stem [place] Por Tpr Stdoff S6 - [id number] Implanted:Qty: 1 on 04/22/2010 at [place] [facility] [place] [place] Right: Hip JNJ : [employer] 02/14/2020 [id number] / / [id number] Head Mtl Artic Edwardo 36mm Pl5 - [id number] Implanted:Qty: 1 on 04/22/2010 at [place] [facility] [place] Right: Hip JNJ : [employer] 12/14/2014 [id number] / / [id number] Fem Acet [place] 300 52mm - [id number] Implanted:Qty: 1 on 04/22/2010 at [place] [facility] Right: Hip JNJ : [employer] [id number] / / [id number] Screw Selftap 3.5x55 204.855 - [id number] Implanted:Qty: 1 on 04/22/2010 at [place] [facility] Right: Hip SYNTHES 204.855 / / Screw Canc 4mm 206.065 - [id number] Implanted:Qty: 1 on 04/22/2010 at [place] [facility] Right: Hip SYNTHES 206.065 / / Screw Canc [place] 6.5x50mm - [id number] Implanted:Qty: 1 on 04/22/2010 at [place] [facility] Right: Hip JNJ : [employer] [id number] / / [id number] Screw Canc [place]ra 6.5x30mm - [id number] Implanted:Qty: 1 on 04/22/2010 at [place] [facility] Right: Hip JNJ : [employer] 02/14/2020 [id number] / / [id number] Screw Selftap 3.5x55 204.855 - [id number] Implanted:Qty: 2 on 04/22/2010 at [facility] Right: Hip SYNTHES 204.855 / / Screw Canc 4mm 206.065 - [id number] Implanted:Qty: 1 on 04/22/2010 at [place] [facility] Right: Hip SYNTHES 206.065 / / Screw Canc [place] 6.5x15mm - [id number] Implanted:Qty: 1 on 04/22/2010 at [place] [facility] [place] Right: Hip JNJ : [employer] 02/14/2020 [id number] / / [id number] Lens 20.5 [id number] - [id number] - [id number] Implanted:Qty: 1 on 10/14/2020 by Lesetr Livingston, DO at OR [facility] Right: Eye DUANE : SURGICAL 2025 [id number] / [id number] / Lens 20.0 [id number] - [id number] 086 - [id number] Implanted:Qty: 1 on 12/09/2020 by Lester Livingston, DO at OR [facility] Left: Eye DUANE : SURGICAL 07/13/2025 [id number] / [id number] / documented as of this encounter Procedures Procedure Name Priority Date/Time Associated Diagnosis Comments ECHOCARDIOLOGY SCANNED RESULT 10/09/2023 RADIOLOGY SCANNED RESULT 10/09/2023 documented in this encounter Results * RADIOLOGY SCANNED RESULT (10/09/2023) 10/09/2023 No Physician Data Unknown DIAGNOSTIC RAD IOLOGY SERVICES * ECHOCARDIOLOGY SCANNED RESULT (10/09/2023) 10/09/2023 No Physician Data Unknown ECHOCARDIOLOGY documented in this encounter Advance Directives * Full Code (Latest Code Status on File) Date Activated Date Inactivated Comments 04/22/2010 6:35 PM 04/27/2010 9:02 PM Question Answer Comments Discussion of Advance Directives occurred with: Not Discussed Care Teams Chief School Finance Officer Relationship Specialty Start Date End Date Gabriele Dumas MD [address] [place] [address] [place] [address] PCP - General Family Medicine 06/04/21 documented as of this encounter
--- OUTSIDE RECORDS SUMMARY | 2024-03-23 11:53 | External Medical Summary | Summary of Care ---
Author Name Unknown Organization [facility] Address [address] [place] [address] Phone [phone] Care Team Providers Care Engineer Fishing Vessel Name Role Phone Gabriele Dumas MD Primary Care Provide r Encounter Details Date Type Department Care Team (Late st Contact Info) Description 10/10/2023 Orders Only Family Medicine [address] [place] [phone] Gabriele Dumas MD [address] [place] [address] [place] [address] Allergies Active Allergy Reactions Criticality Noted Date Comments Influenza Vaccines 01/18/2013 Guilen-[place] syndrome documented as of this encounter (statuses [...] 04/28/2021 History of osteomyelitis 04/28/2021 History of Guillain-[place]ick[place] sy ndrome due to 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 04/28/2021 [...] 10/27/2023 7:00 AM EDT Office Visit Pharmacy, [address] [place] [address] [place] [address] 10/31/2023 7:30 AM EDT Imaging Vascular Lab, [facility] [address]nd [address] [address] 11/08/2023 8:30 AM EDT Office Visit Vascular Surgery, [address] [place] [address] Manoj Chan MD [address] [place] [address] 05/13/2024 7:20 AM EDT Office Visit Family Medicine [address] [place] [address] Gabriele Dumas MD [address] [place] [address] [place] [address] 05/23/2024 9:30 AM EDT Office Visit Ophthalmology, [facility] [address] [place] [address] Lester Livingston, DO 21 [facility] [place] [address] Health Maintenance Due Date Last Done Comments Pneumococcal Vaccine: 65+ Years (1 of 2 - PCV) 06/16/1956 DTap/Tdap Vaccines (1 - Tdap) 1968 Colonoscopy 1994 Fecal Occult Blood Test 1994 Sigmoidoscopy 1994 Adult Wellness Visit 06/16/2015 Depression Screening 06/04/2022 06/04/2021 COVID-19 Vaccine (2022- season) 2022 Albumin/Creatinine Ratio 03/16/2023 023, 04/28/2021, 02/20/2020, Additional history exists Diabetic Foot Exam 02/28/2024 02/27/2023, 0 03/16/2022, 02/20/2020, Additional history exists HbA1c 03/06/2024 09/04/2023, 02/0 03/2023, 11/21/2022, Additional history exists GFR 09/03/2024 10/09/2023, 08/14, 06/12/2023, Additional history exists Diabetic Eye Exam 09/20/2024 09/21/2023, , 09/21/2023, Additional history exists Cologuard 06/16/2025 06/16/2022, 05/15, [...] this encounter Medical Devices Implanted Type Area Commercial Maintenance Technician Device Identifier Shelf Expiration Date Model / Serial / Lot Filter Navalign Femoral Tulip - [id number] Implanted:Qty: 1 on 04/21/2010 at OR [facility] Right: Inferior Vena Cava COOK : [employer] INC 04/12/2013 [id number] / / [id number] [place] Acetabular Liner +4 [id number] Id 52mm Od Implanted:Qty: 1 on 04/22/2010 at OR [facility] Right: Hip 03/16/2015 1221-36-152 / / [id number] Stem [place] Por Tpr Stdoff S6 - [id number] Implanted:Qty: 1 on 04/22/2010 at OR [facility] Right: Hip JNJ : [employer] 02/14/2020 [id number] / / [id number] Head Mtl Artic Edwardo 36mm Pl5 - [id number] Implanted:Qty: 1 on 04/22/2010 at OR [facility] Right: Hip JNJ : [employer] 12/14/2014 [id number] / / [id number] Cup Fem Acet [place] 300 52mm - [id number] Implanted:Qty: 1 on 04/22/2010 at OR [facility] Right: Hip JNJ : [employer] [id number] / / [id number] Screw Selftap 3.5x55 204.855 - [id number] Implanted:Qty: 1 on 04/22/2010 at OR [facility] Right: Hip SYNTHES 204.855 / / Screw Canc 4mm 206.065 - [id number] Implanted:Qty: 1 on 04/22/2010 at OR [facility] Right: Hip SYNTHES 206.065 / / Screw Canc [place] 6.5x50mm - [id number] Implanted:Qty: 1 on 04/22/2010 at OR [facility] Right: Hip JNJ : [employer] [id number] / / [id number] Screw Canc [place] 6.5x30mm - [id number] Implanted:Qty: 1 on 04/22/2010 at [facility] Right: Hip JNJ : [employer] 02/14/2020 [id number] / / [id number] Screw Selftap 3.5x55 204.855 - [id number] Implanted:Qty: 2 on 04/22/2010 at OR [facility] Right: Hip SYNTHES 204.855 / / Screw Canc 4mm 206.065 - [id number] Implanted:Qty: 1 on 04/22/2010 at OR [facility] Right: Hip SYNTHES 206.065 / / Screw Canc [place] 6.5x15mm - [id number] Implanted:Qty: 1 on 04/22/2010 at OR [facility] Right: Hip JNJ : [employer] 02/14/2020 [id number] / / [id number] Lens 20.5 [id number] - [id number] 039 - [id number] Implanted:Qty: 1 on 10/14/2020 by Lester Livingston, DO at OR [facility] Right: Eye DUANE : SURGICAL 2025 [id number] / [id number] / Lens 20.0 [id number] - [id number] - [id number] Implanted:Qty: 1 on 12/09/2020 by Lester Livingston, DO at OR [facility] Left: Eye DUANE : SURGICAL 07/13/2025 [id number] 0 / [id number] / documented as of this encounter Procedures Procedure Name Priority Date/Time Associated Diagnosis Comments CHEMISTRY-OUTSIDE Routine 10/09/2023 documented in this encounter Results * (ABNORMAL) CHEMISTRY-OUTSIDE (10/09/2023) Not all results display below - see scan for full detail OUTSIDE LAB (SEE SCANNED REPORT) Comment:SEE SCAN - CMP CREATININE-OUTSID E LAB 0.97 0.70 - 1.30 MG/DL OUTSIDE LAB (SEE SCANNED REPORT) EGFR-OUTSIDE LAB 82 ML/MIN OUT SIDE LAB (SEE SCANNED REPORT) POTASSIUM-OUTSIDE LAB 4.4 3.5 - 5.1 MMOL/L OUTSIDE LAB (SEE SCANNED REPORT) GLUCOSE-OUTSIDE LAB 249(A) 70 - 110 MG/DL OUTSIDE LAB (SEE [...] LAB OUTSIDE LAB (SEE SCANNED REPORT) HEMOGLOBIN, B4S-QGGMEWK LAB OUTSIDE LAB (SEE SCANNED REPORT) PHOSPHORUS-OUTSID E LAB OUTSIDE LAB (SEE SCANNED REPORT) PTH-OUTSIDE LAB OUTS KEE LAB (SEE SCANNED REPORT) MICROALBUMIN RATIO-OUTSIDE LAB OUTSIDE LA B (SEE SCANNED REPORT) PROTEIN, UA-OUTSIDE LAB OUTSIDE LAB (SEE SCANNED REPORT) HGB OUTSIDE LA B (SEE SCANNED REPORT) 10/09/2023 Raphael Garza MD LABORATORY OUTSIDE LAB (SEE SCANNED REPORT) documented in this encounter Advance Directives * Full Code (Latest Code Status on File) Date Activated Date Inactivated Comments 04/22/2010 6:35 PM 04/27/2010 9:02 PM Question Answer Comments Discussion of Advance Directives occurred with: Not Discussed Care Teams Engineer Fishing Vessel Relationship Specialty Start Date End Date Gabriele Dumas MD [address] [place] [address] [place] [address] PCP - General Family Medicine 06/04/21 documented as of this encounter
--- OUTSIDE RECORDS SUMMARY | 2024-03-23 11:53 | External Medical Summary | Summary of Care ---
Author Name Unknown Organization [facility] Address [address] 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 90 Tablet 5 04/06/2022 Active Aspirin EC 81 MG Oral Tablet Delayed ReleaseIndications:[place] (peripheral artery disease) (HCC) Take 1 Tablet [...] as of this encounter (statuses as of 10/18/2023) Active Problems Problem Noted Date Diagnosed Date History of pancreatitis 11/18/2022 Chronic bilateral low back pain 05/18/2022 Acquired absence of other left toe(s) 03/16/2022 Mild nonproliferative diabet ic retinopathy of both eyes without macular edema associated with type 2 diabetes mellitus 03/16/2022 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 03/16/2022 Amputation of toe of left foot 04/28/2021 History of osteomyelitis 04/28/2021 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 Had recent hospital admission 10/08 - 10/11. Sent to the ER by wound clinic due to inability to palate pulse in right lower extremity. Also noted to have evidence of gangrene on toe. Underwent amputation of toe on 10/09 and found to have severe PAD. Discharged on Keflex. Patient notes that readings have been elevated since hospital discharge. Encouraged medication compliance. States he has saw a reading at 180 and 192. Reviewed he is currently maxed out on T2DM medications, looking towards insulin initiation for next steps. Upcoming MTM appointment on 10/26. Encouraged to focus on diet changes as well as testing blood sugars regularly. He will bring BG log to appointment to further assess at that time. Patient would like me to inform Dr Willis of recent hospitalization. Renee Shukla RPh, PharmD Clinical Pharmacist - Automobile Upholsterer [facility] 10/18/2023, 4:14 PM Ph.[phone] * Telephone Encounter - Chen Ramirez PHARM Tech - 10/18/2023 3:05 PM EDT Caller's name: Reji uHnt call back number(OFFICE NUMBER FOR ): [phone] Reason for call: Pt said he was in the hospital with high sugars and ever since he was home he can't seem to get them under control . He would like Renee [facility] to return his call. Thank you, Chne Ramirez Educational Advisor Centralized Clinical Pharmacy Services 10/18/2023,3:05 PM documented in this encounter Plan of Treatment Upcoming Encounters Date Type Department Care Team (Late st Contact Info) Description 10/27/2023 7:00 AM EDT Office Visit Pharmacy, [address] [place] [address] [place] [address] 10/31/2023 7:30 AM EDT Imaging Vascular Lab, [facility] [address] [place] [address] 11/08/2023 8:30 AM EDT Office Visit Vascular Surgery, [address] [place] [address] Manoj Chan MD [address] [place] [address] 05/13/2024 7:20 AM EDT Office Visit Family Medicine [address] [place] [phone] Gabriele Duams MD [address] [place] [address] [place] [address] 05/23/2024 9:30 AM EDT Office Visit Ophthalmology, [address] [place] [address] Lester Livingston, DO [address] [facility] [place] [phone] Health Maintenance Due Date Last Done Comments Pneumococcal Vaccine: 65+ Years (1 of 2 - PCV) 06/16/1956 DTap/Tdap Vaccines (1 - Tdap) 1968 Colonoscopy 1994 Fecal Occult Blood Test 1994 Sigmoidoscopy 1994 Adult Wellness Visit 06/16/2015 Depression Screening 06/04/2022 06/04/2021 Albumin/Creatinine Ratio 03/16/2023 023, 04/28/2021, 02/20/2020, Additional history exists COVID-19 Vaccine ( - 2022- season) 2023 Diabetic Foot Exam 02/28/2024 02/27/2023, 0 03/16/2022, 02/20/2020, Additional history exists HbA1c 03/06/2024 09/04/2023, 02/0 03/2023, 11/21/2022, Additional history exists Diabetic Eye Exam 09/20/2024 09/21/2023, , 09/21/2023, Additional history exists GFR 10/08/2024 10/09/2023, 08/14, 06/12/2023, Additional history exists Cologuard 06/16/2025 06/16/2022, 05/15, [...] encounter Medical Devices Implanted Type Area Commercial Plumber Device Identifier Shelf Expiration Date Model / Serial / Lot Filter Navalign Femoral Tulip - [id number] [place]planted:Qty: 1 [place]21/[place] [facility] [place]: Inferior Vena Cava COOK : [employer] 04/12/2013 [id number] / / [id number] [place] Acetabular Liner +4 [id number] Id 52mm Od Implanted:Qty: 1 on 04/22/2010 at [place] [facility] Right: Hip 03/16/2015 1221-36-152 / / [id number] Stem [place] Por Tpr Stdoff S6 - [id number] Implanted:Qty: 1 on 04/22/2010 [place] [facility] [place]: Hip JNJ : [employer] 02/14/2020 [id number] / / [id number] Head Mtl Artic Edwardo 36mm Pl5 - [id number] Implanted:Qty: 1 on 04/22/2010 [place] [facility] [place]: Hip JNJ : [employer] 12/14/2014 [id number] / / [id number] Fem Acet [place] 300 52mm - [id number] Implanted:Qty: 1 on 04/22/2010 at [place] [facility] [place]: Hip JNJ : [employer] [id number] / / [id number] Screw Selftap 3.5x55 204.855 - [id number] Implanted:Qty: 1 on 04/22/2010 at [place] [facility] Right: Hip SYNTHES 204.855 / / Screw Canc 4mm 206.065 - [id number] Implanted:Qty: 1 on 04/22/2010 at [place] [facility] Right: Hip SYNTHES 206.065 / / Screw Canc [place] 6.5x50mm - [id number] Implanted:Qty: 1 on 04/22/2010 at [place] [facility] Right: Hip JNJ : [employer] [id number] / / [id number] Screw Canc [place] 6.5x30mm - [id number] Implanted:Qty: 1 on 04/22/2010 at [place] [facility] [place] Hip JNJ : [employer] 02/14/2020 [id number] / / [id number] Screw Selftap 3.5x55 204.855 - [id number] Implanted:Qty: 2 on 04/22/2010 at [place] [facility] [place]: Hip SYNTHES 204.855 / / Screw Canc 4mm 206.065 - [id number] Implanted:Qty: 1 on 04/22/2010 at [place] [facility] Right: Hip SYNTHES 206.065 / / Screw Canc [place] 6.5x15mm - [id number] Implanted:Qty: 1 on 04/22/2010 at [place] [facility] [place]: Hip JNJ : [employer] 02/14/2020 [id number] / / [id number] Lens 20.5 [id number] - [id number] - [id number] Implanted:Qty: 1 on 10/14/2020 by Lester Livingston DO at [place] [facility] Right: Eye DUANE : SURGICAL 2025 [id number] / [id number] / Lens 20.0 [id number] - [id number] 086 - [id number] Implanted:Qty: 1 on 12/09/2020 by Lester Livingston DO at OR [facility] Left: Eye DUANE : SURGICAL 07/13/2025 [id number] / [id number] / documented as of this encounter Advance Directives * Full Code (Latest Code Status on File) Date Activated Date Inactivated Comments 04/22/2010 6:35 PM 04/27/2010 9:02 PM Question Answer Comments Discussion of Advance Directives occurred with: Not Discussed Care Teams Orthopaedic General Relationship Specialty Start Date End Date Gabriele Dumas MD [address] [place] [address] [place] [phone] PCP - General Family Medicine 06/04/21 documented as of this encounter
--- OUTSIDE RECORDS SUMMARY | 2024-03-23 11:53 | External Medical Summary | Summary of Care ---
Author Name Unknown Organization [facility] Address [address] [facility] [address] [address] Phone [phone] Care Team Providers Care Ceo Ziff Davis Name Role Phone Gabriele Dumas MD Primary Care Provide r Reason for Visit * Reason Onset Date Comments Medication Question 10/18/2023 Encounter Details Date Type Department Care Team (Late st Contact Info) Description 10/18/2023 Telephone Centralized Clinical Pharmacy Services, Clare Cui [address] [place] [address] [place] [address] [place] [address] Medication Question Allergies Active Allergy Reactions Criticality Noted Date Comments 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 (statuses as of 10/20/2023) Medications Medication Sig Dispensed Refills Start Date [...] as of this encounter (statuses as of 10/20/2023) Active Problems Problem Noted Date Diagnosed Date History of pancreatitis 11/18/2022 Chronic bilateral low back pain 05/18/2022 Acquired absence of other left toe(s) 03/16/2022 Mild nonproliferative diabet ic retinopathy of both eyes without macular edema associated with type 2 diabetes mellitus 03/16/2022 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 03/16/2022 Amputation of toe of left foot 04/28/2021 History of osteomyelitis 04/28/2021 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 * Telephone Encounter - Gabriele Dumas MD - 10/18/2023 8:45 PM EDT Can we help pt set up a hospital follow up * Telephone Encounter - Renee Shukla [facility] - 10/18/2023 4:04 PM EDT Patient Phone [...] towards insulin initiation for next steps. Upcoming [facility] appointment on 10/26. Encouraged to focus on diet changes as well as testing blood sugars regularly. He will bring BG log to appointment to further assess at that time. Patient would like me to inform Dr Willis of recent hospitalization. Renee Shukla RP, PharmD Clinical Pharmacist - Press Brake Operator [facility] 10/18/2023, 4:14 PM Ph.[phone] * Telephone Encounter - Chen Ramirez PHARM Tech - 10/18/2023 3:05 PM EDT Caller's name: Reji Hunt call back number(OFFICE NUMBER FOR ): [phone] Reason for call: Pt said he was in the hospital with high sugars and ever since he was home he can't seem to get them under control . He would like Renee MENDEZ to return his call. Thank you, Chen Ramirez High Lead Yarder Centralized Clinical Pharmacy Services 10/18/2023,3:05 PM documented in this encounter Plan of Treatment Upcoming Encounters Date Type Department Care Team (Late st Contact Info) Description 10/25/2023 11:20 AM EDT Office Visit Family Medicine [address] [place] [phone] Gabriele Dumas MD [address] [place] [address] [place] [address] 10/27/2023 7:00 AM EDT Office Visit Pharmacy, [address] [place] [address] [place] [address] 10/31/2023 7:30 AM EDT Imaging Vascular Lab, [facility] 2nd Floor, Veteran [address] [facility] [place] [address] 11/08/2023 8:30 AM EDT Office Visit Vascular Surgery, [address] [place] [address] Manoj Chan MD [address] [place] [address] 05/13/2024 7:20 AM EDT Office Visit Family Medicine [address] [place] [phone] Gabriele Dumas MD [address] [place] [address] [place] [address] 05/23/2024 9:30 AM EDT Office Visit Ophthalmology, [address] [place] [address] Lester Livingston DO [facility] [address] Health Maintenance Due Date Last Done Comments [...] this encounter Medical Devices Implanted Type Area Paper Roll Machine Operator Device Identifier Shelf Expiration Date Model / Serial / Lot Filter Navalign Femoral Tulip - [id number] Implanted:Qty: 1 on 04/21/2010 at OR [facility] Right: Inferior Vena Cava COOK : [employer] 04/12/2013 [id number] / / [id number] [place] Acetabular Liner +4 [id number] 52mm Od Implanted:Qty: 1 on 04/22/2010 at OR [facility] Right: Hip 03/16/2015 [id number] / / [id number] Stem [place] Por Tpr Stdoff S6 - [id number] Implanted:Qty: 1 on 04/22/2010 at OR [facility] Right: Hip JNJ : [employer] 02/14/2020 [id number] / / [id number] Head Mtl Artic Edwardo 36mm Pl5 - [id number] Implanted:Qty: 1 on 04/22/2010 at OR [facility] Right: Hip JNJ : [employer] 12/14/2014 [id number] / / [id number] Cup Fem Acet [place] 300 52mm - [id number] Implanted:Qty: 1 on 04/22/2010 at [facility] Right: Hip JNJ : [employer] [id number] / / [id number] Screw Selftap 3.5x55 204.855 - [id number] Implanted:Qty: 1 on 04/22/2010 at OR [facility] Right: Hip SYNTHES 204.855 / / Screw Canc 4mm 206.065 - [id number] Implanted:Qty: 1 on 04/22/2010 at OR [facility] Right: Hip SYNTHES 206.065 / / Screw Canc [place] 6.5x50mm - [id number] Implanted:Qty: 1 on 04/22/2010 at OR [facility] Right: Hip JNJ : [employer] [id number] / / [id number] Screw Canc [place] 6.5x30mm - [id number] Implanted:Qty: 1 on 04/22/2010 at OR [facility] Right: Hip JNJ : [employer] 02/14/2020 [id number] / / [id number] Screw [place]ft[place] 3.5x55 204.855 - [id number] Implanted:Qty: 2 on 04/22/2010 at OR [facility] Right: Hip SYNTHES 204.855 / / Screw Canc 4mm 206.065 - [id number] Implanted:Qty: 1 on 04/22/2010 at OR [facility] Right: Hip SYNTHES 206.065 / / Screw Canc [place] 6.5x15mm - [id number] Implanted:Qty: 1 on 04/22/2010 at OR [facility] Right: Hip JNJ : [employer] 02/14/2020 [id number] / / [id number] Lens 20.5 [id number] - [id number] - [id number] Implanted:Qty: 1 on 10/14/2020 by Lester Livingston DO at OR [facility] Right: Eye DUANE : SURGICAL 2025 [id number] / [id number] / Lens 20.0 [id number] - [id number] - [id number] Implanted:Qty: 1 on 12/09/2020 by Lester Livingston DO at OR [facility] Left: Eye DUANE : SURGICAL 07/13/2025 [id number] / [id number] / documented as of this encounter Advance Directives * Full Code (Latest Code Status on File) Date Activated Date Inactivated Comments 04/22/2010 6:35 PM 04/27/2010 9:02 PM Question Answer Comments Discussion of [place] Directives occurred with: Not Discussed Care Teams Ceo Ziff Davis Relationship Specialty Start Date End Date Gabriele Dumas MD [address] [place] [address] [place] [address] PCP - General Family Medicine 06/04/21 documented as of this encounter
--- OUTSIDE RECORDS SUMMARY | 2024-03-23 11:53 | External Medical Summary ---
Author Name Unknown Address Unknown Organization K01:[facility]ORY [facility] - [address] [place] [address] Laboratory Report Ordering Provider Test Date Status COLEEN ALMAZAN 10/25/2023 11:30:32 Rochelle l Observation Date Value Abnormality Reference (Units ) Status BUN 10/25/2023 11:30:32 13 6-20 (mg/dL) Final Creatinine 10/25/2023 11:30:32 0.7 0.6-1.2 (mg/dL) Final Glomerular filtration rate/1.73 sq M.predicted [Volume Rate/Area] in Serum, Plasma or Blood by Creatinine-based formula (CKD-EPI) 10/25/2023 11:30:32 >90 >=60 (mL/min) Final eGFR is calculated based on the CKD-EPI 2020 equation. Sodium 10/25/2023 11:30:32 140 135-146 (m mol/L) Final Potassium 10/25/2023 11:30:32 4.4 3.5-5.1 (m mol/L) Final Cl 10/25/2023 11:30:32 101 98-107 (mm ol/L) Final CO2 10/25/2023 11:30:32 27 22-32 (mmo l/L) Final Anion gap 10/25/2023 11:30:32 12 7-15 (mmol /L) Final Glucose 10/25/2023 11:30:32 166 Above high normal 70 -120 (mg/dL) Final Calcium 10/25/2023 11:30:32 9.8 8.4-10.2 ( mg/dL) Final Performing Location LAB[facility] - [address] [place] [address]
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
--- OUTSIDE RECORDS SUMMARY | 2024-03-23 11:53 | External Medical Summary | Summary of Care ---
Author Name Unknown Organization [facility] Address [address] [place] [address] Phone [phone] Care Team Providers Care Water Chaser Name Role Phone Gabriele Dumas MD Primary Care Provide r Reason for Visit * Reason Onset Date Comments Advice 11/02/2023 Encounter Details Date Type Department Care Team (Late st Contact Info) Description 11/02/2023 Telephone Vascular Surg [facility], [place] [address], [place] [id number] Services, [facility] [address] [place] [address] Advice Allergies Active Allergy Reactions Criticality Noted Date Comments Influenza Vaccines 01/18/2013 Guilen-[place] syndrome documented as of this encounter [...] 04/28/2021 History of osteomyelitis 04/28/2021 History of Guillain-[place] sy ndrome due to 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 [...] encounter Miscellaneous Notes * Telephone Encounter - Delmis Torres OSA - 11/02/2023 8:08 AM EDT Pt called regarding his testing that he had done yesterday - he is concerned there maybe a blood clot. He is asking for a call back regarding the test results. He has an appointment 11/[address] [facility] with Dr Chan. I did offer an appointment for pt to be seen in [place] - pt would like to have a call back. Please call pt on cell phone. documented in this encounter Plan of Treatment Upcoming Encounters Date Type Department Care Team (Late st Contact Info) Description 11/08/2023 8:30 AM EDT Office Visit Vascular Surgery, [facility] [address] [facility] [place] [address] Manoj Chan MD [address] [facility] [place] [address] 12/18/2023 10:00 AM EST Office Visit Family Medicine [address] [place] [phone] Gabriele Dumas MD [address] [place] [address] [place] [address] 12/27/2023 8:00 AM EST Office Visit Pharmacy, [address] [place] [address] [place] [address] 05/13/2024 7:20 AM EDT Office Visit Family Medicine [address] [place] [phone] Gabriele Dumas MD [address] [place] [address] [place] [address] 05/23/2024 9:30 AM EDT Office Visit Ophthalmology, [facility] [address] [facility] [place] [address] Lester Livingston, DO 21 [facility] [place] [address] Health Maintenance Due Date Last Done Comments [...] this encounter Medical Devices Implanted Type Area Viticulture Teacher Device Identifier Shelf Expiration Date Model / Serial / Lot Filter Navalign Femoral Tulip - [id number] Implanted:Qty: 1 on 04/21/2010 at OR [facility] Right: Inferior Vena Cava COOK : [employer] 04/12/2013 [id number] / / [id number] [place] Acetabular Liner +4 [id number] 52mm Od Implanted:Qty: 1 on 04/22/2010 at OR [facility] Right: Hip 03/16/2015 1221-36-152 / / [id number] Stem [place] Por Tpr Stdoff S6 - [id number] Implanted:Qty: 1 on 04/22/2010 at OR [facility] Right: Hip JNJ : [employer] 02/14/2020 [id number] / / [id number] Head Mtl Artic Edwardo 36mm Pl5 - [id number] Implanted:Qty: 1 on 04/22/2010 at OR [facility] Right: Hip JNJ : [employer] 12/14/2014 [id number] / / [id number] Fem Acet [place] 300 52mm - [id number] Implanted:Qty: 1 on 04/22/2010 at OR [facility] Right: Hip JNJ : [employer] [id number] / / [id number] Screw Selft[place] 3.5x55 204.855 - [id number] Implanted:Qty: 1 on 04/22/2010 at OR [facility] Right: Hip SYNTHES 204.855 / / Screw Canc 4mm 206.065 - [id number] Implanted:Qty: 1 on 04/22/2010 at OR [facility] Right: Hip SYNTHES 206.065 / / Screw Canc [place] 6.5x50mm - [id number] Implanted:Qty: 1 on 04/22/2010 at OR [facility] Right: Hip JNJ : [employer] [id number] / / [id number] Screw Canc [place] 6.5x30mm - [id number] Implanted:Qty: 1 on 04/22/2010 at OR [facility] Right: Hip JNJ : [employer] 02/14/2020 [id number] / / [id number] Screw [place]ft[place] 3.5x55 204.855 - [id number] Implanted:Qty: 2 on 04/22/2010 at OR [facility] Right: Hip SYNTHES 204.855 / / Screw Canc 4mm 206.065 - [id number] Implanted:Qty: 1 on 04/22/2010 at OR [facility] Right: Hip SYNTHES 206.065 / / Screw Canc [place] 6.5x15mm - [id number] Implanted:Qty: 1 on 04/22/2010 at OR [facility] Right: Hip JNJ : [employer] 02/14/2020 [id number] / / [id number] Lens 20.5 [id number] - [id number] - [id number] Implanted:Qty: 1 on 10/14/2020 by Lester Livingston DO at OR [facility] Right: Eye DUANE : SURGICAL 2025 [id number] / [id number] / Lens 20.0 [id number] - [id number] 086 - [id number] Implanted:Qty: 1 on 12/09/2020 by Lester Livingston DO at OR [facility] Left: Eye DUANE : SURGICAL 07/13/2025 [id number] 0 / [id number] / documented as of this encounter Advance Directives * Full Code (Latest Code Status on File) Date Activated Date Inactivated Comments 04/22/2010 6:35 PM 04/27/2010 9:02 PM Question Answer Comments Discussion of Advance Directives occurred with: Not Discussed Care Teams Water Chaser Relationship Specialty Start Date End Date Gabriele Dumas MD [address] [place] [address] [place] [address] PCP - General Family Medicine 06/04/21 documented as of this encounter
--- OUTSIDE RECORDS SUMMARY | 2024-03-23 11:53 | External Medical Summary | Summary of Care ---
Author Name Unknown Organization [facility] Address [address] [place] [address] Phone [phone] Care Team Providers Care Pneumatic Systems Operator Name Role Phone Gabriele Dumas MD Primary Care Provide r Reason for Visit * Reason Comments Outpatient Testing Encounter Details Date Type Department Care Team (Late st Contact Info) Description 10/25/2023 12:00 PM EDT Laboratory Laboratory [address] [place] [phone] [place] [address] Arrived Allergies Active Allergy Reactions Criticality Noted Date Comments Influenza Vaccines 01/18/2013 Guilen-[place] syndrome documented as of this encounter (statuses [...] 04/28/2021 History of osteomyelitis 04/28/2021 History of Guillain-[place] sy ndrome due to 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 04/28/2021 [...] 10/31/2023 7:30 AM EDT Imaging Vascular Lab, [address] [address] 11/01/2023 9:30 AM EDT Office Visit Pharmacy, [address] [place] [address] [place] [address] 11/08/2023 8:30 AM EDT Office Visit Vascular Surgery, [address] [place] [address] Manoj Chan MD [address] [place] [address] 12/18/2023 10:00 AM EST Office Visit Family Medicine [address] [place] [phone] Gabriele Dumas MD [address] [place] [address] [place] [address] 05/13/2024 7:20 AM EDT Office Visit Family Medicine [address] [place] [phone] Gabriele Dumas MD [address] [place] [address] [place] [address] 05/23/2024 9:30 AM EDT Office Visit Ophthalmology, [facility] [address] [place] [address] Lester Livingston, DO [facility] [place] [phone] Health Maintenance Due Date Last Done Comments [...] this encounter Medical Devices Implanted Type Area Color Strainer Device Identifier Shelf Expiration Date Model / Serial / Lot Filter Navalign Femoral Tulip - [id number] Implanted:Qty: 1 on 04/21/2010 at [place] [facility] Right: Inferior Vena Cava COOK : [employer] 04/12/2013 [id number] / / [id number] [place] Acetabular Liner +4 [id number] Id 52mm Od Implanted:Qty: 1 on 04/22/2010 at OR [facility] Right: Hip 03/16/2015 1221-36-152 / / [id number] Stem [place] Por Tpr Stdoff S6 - [id number] Implanted:Qty: 1 on 04/22/2010 at OR [facility] Right: Hip JNJ : [employer] 02/14/2020 [id number] / / [id number] Head Mtl Artic [place] 36mm Pl5 - [id number] Implanted:Qty: 1 on 04/22/2010 at [place] [facility] Right: Hip JNJ : [employer] 12/14/2014 [id number] / / [id number] Cup Fem Acet [place] 300 52mm - [id number] Implanted:Qty: 1 on 04/22/2010 at OR [facility] Right: Hip JNJ : [employer] [id number] / / [id number] Screw [place] 3.5x55 204.855 - [id number] Implanted:Qty: 1 on 04/22/2010 at OR [facility] Right: Hip SYNTHES 204.855 / / Screw Canc 4mm 206.065 - [id number] Implanted:Qty: 1 on 04/22/2010 at [facility] Right: Hip SYNTHES 206.065 / / Screw Canc [place] 6.5x50mm - [id number] Implanted:Qty: 1 on 04/22/2010 at [place] [facility] Right: Hip JNJ : [employer] [id number] / / [id number] Screw Canc [place] 6.5x30mm - [id number] Implanted:Qty: 1 on 04/22/2010 at [place] [facility] Right: Hip JNJ : [employer] 02/14/2020 [id number] / / [id number] Screw [place] 3.5x55 204.855 - [id number] Implanted:Qty: 2 on 04/22/2010 at OR [facility] Right: Hip SYNTHES 204.855 / / Screw Canc 4mm 206.065 - [id number] Implanted:Qty: 1 on 04/22/2010 at [place] [facility] Right: Hip SYNTHES 206.065 / / Screw Canc [place] 6.5x15mm - [id number] Implanted:Qty: 1 on 04/22/2010 at [place] [facility] Right: Hip JNJ : [employer] 02/14/2020 [id number] / / [id number] Lens 20.5 [id number] - [id number] 039 - [id number] Implanted:Qty: 1 on 10/14/2020 by Lester Livingston DO at OR [facility] Right: Eye DUANE : SURGICAL 2025 [id number] 5 / [id number] / Lens 20.0 [id number] - [id number] 086 - [id number] Implanted:Qty: 1 on 12/09/2020 by Lester Livingston DO at OR [facility] Left: Eye DUANE : SURGICAL 07/13/2025 [id number] 0 / [id number] / documented as of this encounter Advance Directives * Full Code (Latest Code Status on File) Date Activated Date Inactivated Comments 04/22/2010 6:35 PM 04/27/2010 9:02 PM Question Answer Comments Discussion of Advance Directives occurred with: Not Discussed Care Teams Pneumatic Systems Operator Relationship Specialty Start Date End Date Gabriele Dumas MD [address] [place] [address] [place] [phone] PCP - General Family Medicine 06/04/21 documented as of this encounter
--- OUTSIDE RECORDS SUMMARY | 2024-03-23 11:53 | External Medical Summary | Summary of Care ---
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 of this encounter (statuses as of 10/19/2023) Medications Medication Sig Dispensed Refills Start Date [...] as of this encounter (statuses as of 10/19/2023) Active Problems Problem Noted Date Diagnosed Date History of pancreatitis 11/18/2022 Chronic bilateral low back pain 05/18/2022 Acquired absence of other left toe(s) 03/16/2022 Mild nonproliferative diabet ic retinopathy of both eyes without macular edema associated with type 2 diabetes mellitus 03/16/2022 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 03/16/2022 Amputation of toe of left foot 04/28/2021 History of osteomyelitis 04/28/2021 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 [...] as of this encounter (statuses as of 10/19/2023) Resolved Problems Problem Noted Date Diagnosed Date [...] as of this encounter (statuses as of 10/19/2023) Immunizations No known immunizationsdocumented as of this [...] 10/27/2023 7:00 AM EDT Office Visit Pharmacy, [address] [place] [address] [place] [address] 10/31/2023 7:30 AM EDT Imaging Vascular Lab, [facility] [address] [place] [address] 11/08/2023 8:30 AM EDT Office Visit Vascular Surgery, [address] [place] [address] Manoj Chan MD [address] [place] [address] 05/13/2024 7:20 AM EDT Office Visit Family Medicine [address] [place] [phone] Gabriele Dumas MD [address] [place] [address] [place] [address] 05/23/2024 9:30 AM EDT Office Visit Ophthalmology, [address] [place] [address] Lester Livingston, DO 21 [facility] [place] [phone] Health Maintenance Due Date Last Done Comments [...] this encounter Medical Devices Implanted Type Area Maintenance Worker Swimming Pool Device Identifier Shelf Expiration Date Model / Serial / Lot Filter Navalign Femoral [place]ip - [id number] Implanted:Qty: 1 on 04/21/[address] [facility] Right: Inferior Vena Cava COOK : [employer] 04/12/2013 [id number] / / [id number] [place] Acetabular Liner +4 [id number] Id 52mm Od Implanted:Qty: 1 on 04/22/[address] [facility] Right: Hip 03/16/2015 1221-36-152 / / [id number] Stem [place] Por Tpr Stdoff S6 - [id number] Implanted:Qty: 1 on 04/22/[address] [facility] Right: Hip JNJ : [employer] 02/14/2020 [id number] / / [id number] Head Mtl Artic [place] 36mm Pl5 - [id number] Implanted:Qty: 1 on 04/22/[address] [facility] Right: Hip JNJ : [employer] 12/14/2014 [id number] / / [id number] Cup Fem Acet [place] 300 52mm - [id number] Implanted:Qty: 1 on 04/22/[address] [facility] Right: Hip JNJ : [employer] [id number] / / [id number] Screw [place] 3.5x55 204.855 - [id number] Implanted:Qty: 1 on 04/22/[address] [facility] Right: Hip SYNTHES 204.855 / / Screw Canc 4mm 206.065 - [id number] Implanted:Qty: 1 on 04/22/[address] [facility] Right: Hip SYNTHES 206.065 / / Screw Canc [place] 6.5x50mm - [id number] Implanted:Qty: 1 on 04/22/[address] [facility] Right: Hip JNJ : [employer] [id number] / / [id number] Screw Canc [place] 6.5x30mm - [id number] Implanted:Qty: 1 on 04/22/2010 at [facility] Right: Hip JNJ : [employer] 02/14/2020 [id number] / / [id number] Screw [place] 3.5x55 204.855 - [id number] Implanted:Qty: 2 on 04/22/[address] [facility] Right: Hip SYNTHES 204.855 / / Screw Canc 4mm 206.065 - [id number] Implanted:Qty: 1 on 04/22/[address] [facility] Right: Hip SYNTHES 206.065 / / Screw Canc [place] 6.5x15mm - [id number] Implanted:Qty: 1 on 04/22/[address] [facility] Right: Hip JNJ : [employer] 02/14/2020 [id number] / / [id number] Lens 20.5 [id number] - [id number] 039 - [id number] Implanted:Qty: 1 on 10/14/2020 by Lester Livingston DO at OR [facility] Right: Eye DUANE : SURGICAL 2025 [id number] 5 / [id number] 039 / Lens 20.0 [id number] - [id number] 086 - [id number] Implanted:Qty: 1 on 12/09/2020 by Lester Livingston DO at OR [facility] Left: Eye DUANE : SURGICAL 07/13/2025 [id number] 0 / [id number] [id number] / documented as of this encounter Procedures Procedure Name Priority Date/Time Associated Diagnosis Comments PATHOLOGY SCANNED RESULT 10/10/2023 documented in this encounter Results * PATHOLOGY SCANNED RESULT (10/10/2023) 10/10/2023 Gabriele Dumas MD PATHOLOGY documented in this encounter Advance Directives * Full Code (Latest Code Status on File) Date Activated Date Inactivated Comments 04/22/2010 6:35 PM 04/27/2010 9:02 PM Question Answer Comments Discussion of Advance Directives occurred with: Not Discussed Care Teams Director Check Relationship Specialty Start Date End Date Gabriele Dumas MD [address] [place] [address] [place] [phone] PCP - General Family Medicine 06/04/21 documented as of this encounter
--- OUTSIDE RECORDS SUMMARY | 2024-03-23 11:53 | External Medical Summary | Summary of Care ---
Author Name Unknown Organization [facility] Address [address] [facility] [address] Phone [phone] Care Team Providers Care Police Or Patrol Park Officer Name Role Phone Gabriele Dumas MD Primary Care Provide r Reason for Visit * Reason Onset Date Comments Medication Question 10/18/2023 Encounter Details Date Type Department Care Team (Late st Contact Info) Description 10/18/2023 Telephone Centralized Clinical Pharmacy Services, Clare Cui [address] [place] [address] [place] [address] [place] [address] Medication Question Allergies Active Allergy Reactions Criticality Noted Date Comments Influenza Vaccines 01/18/2013 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 documented as of this encounter (statuses [...] 04/28/2021 History of osteomyelitis 04/28/2021 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 He would like Renee MENDEZ to return his call. Thank you, Chen Ramirez Analyst Competitive Intelligence Centralized Clinical Pharmacy Services 10/18/2023,3:05 PM documented in this encounter Plan of Treatment Upcoming Encounters Date Type Department Care Team (Late st Contact Info) Description 10/27/2023 7:00 AM EDT Office Visit Pharmacy, [address] [place] [address] [place] [address] 10/31/2023 7:30 AM EDT Imaging Vascular Lab, [facility] [address] [place] [address] 11/08/2023 8:30 AM EDT Office Visit Vascular Surgery, [address] [place] [address] Manoj Chan MD [address] [facility] [place] [address] 05/13/2024 7:20 AM EDT Office Visit Family Medicine [address] [place] [phone] Gabriele Dumas MD [address] [place] [address] [place] [address] 05/23/2024 9:30 AM EDT Office Visit Ophthalmology, [facility] [address] [facility] [place] [address] Lester Livingston, DO [address] [place] [address] Health Maintenance Due Date Last Done Comments [...] this encounter Medical Devices Implanted Type Area Senior Cost Analyst Device Identifier Shelf Expiration Date Model / Serial / Lot Filter Navalign Femoral Tulip - [id number] Implanted:Qty: 1 on 04/21/2010 at OR [facility] [place] Right: Inferior Vena Cava COOK : [employer] 04/12/2013 [id number] / / [id number] [place] Acetabular Liner +4 [id number] Id 52mm Od Implanted:Qty: 1 on 04/22/2010 at OR [facility] [place] [facility] Right: Hip 03/16/2015 1221-36-152 / / [id number] Stem [place] Por Tpr Stdoff S6 - [id number] Implanted:Qty: 1 on 04/22/2010 at [facility] Right: Hip JNJ : [facility] 02/14/2020 [id number] / / [id number] Head Mtl Artic [place] 36mm Pl5 - [id number] Implanted:Qty: 1 on 04/22/2010 at OR [facility] Right: Hip JNJ : [employer] 12/14/2014 [id number] / / [id number] Cup Fem Acet [place] 300 52mm - [id number] Implanted:Qty: 1 on 04/22/2010 at [facility] Right: Hip JNJ : [facility] [id number] / / [id number] Screw [place]ft[place] 3.5x55 204.855 - [id number] Implanted:Qty: 1 on 04/22/2010 at OR [facility] [place] [facility] Right: Hip SYNTHES 204.855 / / Screw Canc 4mm 206.065 - [id number] Implanted:Qty: 1 on 04/22/2010 at [facility] Right: Hip SYNTHES 206.065 / / Screw Canc [place] 6.5x50mm - [id number] Implanted:Qty: 1 on 04/22/2010 at [facility] Right: Hip JNJ : [employer] [id number] / / [id number] Screw Canc [place] 6.5x30mm - [id number] Implanted:Qty: 1 on 04/22/2010 at OR [facility] [facility] Right: Hip JNJ : [employer] 02/14/2020 [id number] / / [id number] Screw Selftap 3.5x55 204.855 - [id number] Implanted:Qty: 2 on 04/22/2010 at OR [facility] Right: Hip SYNTHES 204.855 / / Screw Canc 4mm 206.065 - [id number] Implanted:Qty: 1 on 04/22/2010 at OR [facility] Right: Hip SYNTHES 206.065 / / Screw Canc [place] 6.5x15mm - [id number] Implanted:Qty: 1 on 04/22/2010 at OR [facility] [place] [facility] Right: Hip JNJ : [employer] 02/14/2020 [id number] / / [id number] Lens 20.5 [id number] - [id number] 039 - [id number] Implanted:Qty: 1 on 10/14/2020 by Lester Livingston DO at OR [facility] Right: Eye DUANE : SURGICAL 2025 [id number] 5 / [id number] 039 / Lens 20.0 [id number] - [id number] 086 - [id number] Implanted:Qty: 1 on 12/09/2020 by Lester Livingston DO at OR [facility] Left: Eye DUANE : SURGICAL 07/13/2025 [id number] 0 / [id number] / documented as of this encounter Advance Directives * Full Code (Latest Code Status on File) Date Activated Date Inactivated Comments 04/22/2010 6:35 PM 04/27/2010 9:02 PM Question Answer Comments Discussion of Advance Directives occurred with: Not Discussed Care Teams Police Or Patrol Park Officer Relationship Specialty Start Date End Date Gabriele Dumas MD [address] [place] [address] [place] [address] PCP - General Family Medicine 06/04/21 documented as of this encounter
--- OUTSIDE RECORDS SUMMARY | 2024-03-23 11:53 | External Medical Summary | Summary of Care ---
Author Name Unknown Organization [facility] Address [address] [place] [address] Phone [phone] Care Team Providers Care Mender Hand Name Role Phone Gabriele Dumas MD Primary Care Provide r Reason for Visit * Reason Comments Dosage Adjustment In Person (Anticoag Cl inic) Diabetes Follow-Up Encounter Details Date Type Department Care Team (Late st Contact Info) Description 11/01/2023 9:30 AM EDT Office Visit Pharmacy, [address] [place] [address] [place] [address] Type 2 diabetes mellitus with hemoglobin A1c goal of less than 8.0% ([facility])* Allergies Active Allergy Reactions Criticality Noted Date Comments Influenza Vaccines 01/18/2013 Gu[place] syndrome documented as of this encounter (statuses as of 11/01/2023) Medications Medication Sig Dispensed Refills Start Date End Date Status Atorvastatin Calcium 40 MG Oral Tablet (Lipitor) Take 1 Tablet by mouth in the morning. 90 Tablet 5 04/06/2022 Active Aspirin EC 81 MG Oral Tablet Delayed ReleaseIndications:PA D (peripheral artery disease) ([facility] [...] as of this encounter (statuses as of 11/01/2023) Active Problems Problem Noted Date Diagnosed Date History of pancreatitis 11/18/2022 Chronic bilateral low back pain 05/18/2022 Acquired absence of other left toe(s) 03/16/2022 Mild nonproliferative diabet ic retinopathy of both eyes without macular edema associated with type 2 diabetes mellitus 03/16/2022 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 03/16/2022 Amputation of toe of left foot 04/28/2021 History of osteomyelitis 04/28/2021 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 Renee Shukla [facility] Clinical Pharmacist - Registration Scheduling Specialist Medication Therapy [facility] 11/01/2023, 9:15 AM documented in this encounter Plan of Treatment Upcoming Encounters Date Type Department Care Team (Late st Contact Info) Description 11/08/2023 8:30 AM EDT Office Visit Vascular Surgery, [address] [place] [address] [facility] [address] [facility] [address] 12/18/2023 10:00 AM EST Office Visit Family [address] [phone] Gabriele Dumas MD [address] [place] [address] [place] [address] 12/27/2023 8:00 AM EST Office Visit Pharmacy, [address] [place] [address] [place] [address] 05/13/2024 7:20 AM EDT Office Visit [address] [place] [phone] Gabriele Dumas MD [address] [place] [address] [place] [address] 05/23/2024 9:30 AM EDT Office Visit Ophthalmology, [facility] [address] [facility] [place] [address] Lester Livingston, DO 21 [facility] [place] [address] Health Maintenance Due Date Last Done Comments [...] this encounter Medical Devices Implanted Type Area Steel Worker Device Identifier Shelf Expiration Date Model / Serial / Lot Filter Navalign Femoral Tulip - [id number] Implanted:Qty: 1 on 04/21/2010 at [place] [facility] Right: Inferior Vena Cava COOK : [employer] 04/12/2013 [id number] / / [id number] [place] Acetabular Liner +4 [id number] 52mm Od Implanted:Qty: 1 on 04/22/2010 at OR [facility] Right: Hip 03/16/2015 1221-36-152 / / [id number] Stem [place] Por Tpr Stdoff S6 - [id number] Implanted:Qty: 1 on 04/22/2010 at OR [facility] Right: Hip JNJ : [facility] 02/14/2020 [id number] / / [id number] Head Mtl Artic Edward[place] 36mm Pl5 - [id number] Implanted:Qty: 1 on 04/22/2010 at OR [facility] Right: Hip JNJ : [employer] 12/14/2014 [id number] / / [id number] Fem Acet [place] 300 52mm - [id number] Implanted:Qty: 1 on 04/22/2010 at OR [facility] Right: Hip JNJ : [employer] [id number] / / [id number] Screw Selftap 3.5x55 204.855 - [id number] Implanted:Qty: 1 on 04/22/2010 at OR [facility] Right: Hip SYNTHES 204.855 / / Screw Canc 4mm 206.065 - [id number] Implanted:Qty: 1 on 04/22/[address] [facility] Right: Hip SYNTHES 206.065 / / Screw Canc [place] 6.5x50mm - [id number] Implanted:Qty: 1 on 04/22/[address] [facility] Right: Hip JNJ : [employer] [id number] / / [id number] Screw Canc [place] 6.5x30mm - [id number] Implanted:Qty: 1 on 04/22/2010 at OR [facility] Right: Hip JNJ : [employer] 02/14/2020 [id number] / / [id number] Screw [place] 3.5x55 204.855 - [id number] Implanted:Qty: 2 on 04/22/2010 at OR [facility] Right: Hip SYNTHES 204.855 / / Screw Canc 4mm 206.065 - [id number] Implanted:Qty: 1 on 04/22/2010 at OR [facility] Right: Hip SYNTHES 206.065 / / Screw Canc [place] 6.5x15mm - [id number] Implanted:Qty: 1 on 04/22/2010 at OR [facility] Right: Hip JNJ : [employer] 02/14/2020 [id number] / / [id number] Lens 20.5 [id number] - [id number] 039 - [id number] Implanted:Qty: 1 on 10/14/2020 by Lester Livingston DO at [facility] Right: Eye DUANE : SURGICAL 2025 [id number] / [id number] / Lens 20.0 [id number] - [id number] 086 - [id number] Implanted:Qty: 1 on 12/09/2020 by Lester Livingston DO at OR [facility] Left: Eye DUANE : SURGICAL 07/13/2025 [id number] 0 / [id number] / documented as of this encounter Visit Diagnoses Diagnosis Type 2 diabetes mellitus with hemoglobin A1c goal of less than 8.0% ([facility])- Primary documented in this encounter Advance Directives * Full Code (Latest Code Status on File) Date Activated Date Inactivated Comments 04/22/2010 6:35 PM 04/27/2010 9:02 PM Question Answer Comments Discussion of Advance Directives occurred with: Not Discussed Care Teams Mender Hand Relationship Specialty Start Date End Date Gabriele Dumas MD [address] [place] [address] [place] [phone] PCP - General Family Medicine 06/04/21 documented as of this encounter
--- OUTSIDE RECORDS SUMMARY | 2024-03-23 11:53 | External Medical Summary ---
Author Name Unknown Address Unknown Organization K01:[facility] [place] [address] [facility] [address] Laboratory Report Ordering Provider Test Date Status LAXMI ALMAZANJOSETTE 10/25/2023 11:30:32 Rochelle l Observation Date Value Abnormality Reference (Units ) Status HbA1C 10/25/2023 11:30:32 9.6 Above high normal 4. 0-5.6 (%) Final The use of HbA1c to monitor glycemic status is based on normal hemoglobin and HbA composition. This test should not be used in patients with abnormal hemoglobin that affects the half life of the red blood cell or the in vivo glycation rates. Glucose, estimated average 10/25/2023 11:30:32 229 Above high normal <126 (mg/dL) Jacob mckeon Performing Location [facility] [place] [address] [facility] [address] [facility] [address]
--- OUTSIDE RECORDS SUMMARY | 2024-03-23 11:53 | External Medical Summary | Summary of Care ---
Author Name Unknown Organization [facility] Address [address] [place] [address] Phone [phone] Care Team Providers Care Product Strategy Director Name Role Phone Gabriele Dumas MD Primary Care Provide r Reason for Visit * Reason Onset Date Comments Advice 10/30/2023 Encounter Details Date Type Department Care Team (Late st Contact Info) Description 10/30/2023 Telephone Family [address] [place] [phone] Gabriele Dumas MD [address] [place] [address] [place] [phone] Advice Allergies Active Allergy Reactions Criticality Noted Date Comments Influenza Vaccines 01/18/2013 Guilen-[place]onz[place] syndrome documented as of this encounter (statuses as of 10/30/2023) Medications Medication Sig Dispensed Refills Start Date [...] as of this encounter (statuses as of 10/30/2023) Active Problems Problem Noted Date Diagnosed Date History of pancreatitis 11/18/2022 Chronic bilateral low back pain 05/18/2022 Acquired absence of other left toe(s) 03/16/2022 Mild nonproliferative diabet ic retinopathy of both eyes without macular edema associated with type 2 diabetes mellitus 03/16/2022 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 03/16/2022 Amputation of toe of left foot 04/28/2021 History of osteomyelitis 04/28/2021 History of Guillain-[place]onz[place] sy ndrome due to 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 04/28/2021 [...] as of this encounter (statuses as of 10/30/2023) Resolved Problems Problem Noted Date Diagnosed Date [...] as of this encounter (statuses as of 10/30/2023) Immunizations No known immunizationsdocumented as of this [...] encounter Miscellaneous Notes * Telephone Encounter - Diana Emery OSA - 10/30/2023 8:57 AM EDT Shanelle pedersen [facility] called for correct fax number for forms. Provided: [phone] documented in this encounter Plan of Treatment Upcoming Encounters Date Type Department Care Team (Late st Contact Info) Description 10/31/2023 7:30 AM EDT Imaging Vascular Lab, [facility] 2nd [facility] [address] [place] [address] 11/01/2023 9:30 AM EDT Office Visit Pharmacy, [address] [place] [address] [place] [address] 11/08/2023 8:30 AM EDT Office Visit Vascular Surgery, [place] [address] [place] [address] [facility]oj [facility] MD [address] [facility] [address] 12/18/2023 10:00 AM EST Office Visit [address] [phone] Gabriele Dumas MD [address] [place] [address] [place] [address] 05/13/2024 7:20 AM EDT Office Visit [address] [place] [phone] Gabriele Dumas MD [address] [place] [address] [place] [address] 05/23/2024 9:30 AM EDT Office Visit Ophthalmology, [facility] [address] [facility] [place] [address] Lester Livingston DO [facility] [place] [address] Health Maintenance Due Date Last Done Comments [...] this encounter Medical Devices Implanted Type Area Biology Instructor Device Identifier Shelf Expiration Date Model / Serial / Lot Filter Navalign Femoral Tulip - [id number] Implanted:Qty: 1 on 04/21/2010 at [place] [facility] [facility] Right: Inferior Vena Cava COOK : [employer] 04/12/2013 [id number] / / [id number] [place] Acetabular Liner +4 [id number] Id 52mm Od Implanted:Qty: 1 on 04/22/2010 at [place] [facility] Right: Hip 03/16/2015 1221-36-152 / / [id number] Stem [place] Por Tpr Stdoff S6 - [id number] Implanted:Qty: 1 on 04/22/2010 at [place] [facility] [facility] Right: Hip JNJ : [employer] 02/14/2020 [id number] / / [id number] Head Mtl Artic Edward[place] 36mm Pl5 - [id number] Implanted:Qty: 1 on 04/22/2010 at [place] [facility] Right: Hip JNJ : [employer] 12/14/2014 [id number] / / [id number] Fem Acet [place] 300 52mm - [id number] Implanted:Qty: 1 on 04/22/2010 at [place] [facility] Right: Hip JNJ : [employer] [id number] / / [id number] Screw Selftap 3.5x55 204.855 - [id number] Implanted:Qty: 1 on 04/22/2010 at [place] [facility] [place] Right: Hip SYNTHES 204.855 / / Screw Canc 4mm 206.065 - [id number] Implanted:Qty: 1 on 04/22/2010 at [place] [facility] Right: Hip SYNTHES 206.065 / / Screw Canc [place] 6.5x50mm - [id number] Implanted:Qty: 1 on 04/22/2010 at OR [facility] Right: Hip JNJ : [employer] [id number] / / [id number] Screw Canc [place] 6.5x30mm - [id number] Implanted:Qty: 1 on 04/22/2010 at [place] [facility] Right: Hip JNJ : [employer] 02/14/2020 [id number] / / [id number] Screw [place]ft[place] 3.5x55 204.855 - [id number] Implanted:Qty: 2 on 04/22/2010 at [place] [facility] Right: Hip SYNTHES 204.855 / / Screw Canc 4mm 206.065 - [id number] Implanted:Qty: 1 on 04/22/2010 at [place] [facility] [place] Right: Hip SYNTHES 206.065 / / Screw Canc [place] 6.5x15mm - [id number] Implanted:Qty: 1 on 04/22/2010 at [place] [facility] Right: Hip JNJ : [employer] 02/14/2020 [id number] / / [id number] Lens 20.5 [id number] - [id number] 039 - [id number] Implanted:Qty: 1 on 10/14/2020 by Lester Livingston DO at OR [facility] Right: Eye DUANE : SURGICAL 2025 [id number] 5 / [id number] / Lens 20.0 [id number] - [id number] 086 - [id number] Implanted:Qty: 1 on 12/09/2020 by Lester Livingston DO at OR [facility] Left: Eye DUANE : SURGICAL 07/13/2025 [id number] / [id number] 086 / documented as of this encounter Advance Directives * Full Code (Latest Code Status on File) Date Activated Date Inactivated Comments 04/22/2010 6:35 PM 04/27/2010 9:02 PM Question Answer Comments Discussion of Advance Directives occurred with: Not Discussed Care Teams Product Strategy Director Relationship Specialty Start Date End Date Gabriele Dumas MD [address] [place] [address] [place] [address] PCP - General Family Medicine 06/04/21 documented as of this encounter
--- OUTSIDE RECORDS SUMMARY | 2024-03-23 11:53 | External Medical Summary | Summary of Care ---
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 documented as of this encounter (statuses [...] 04/28/2021 History of osteomyelitis 04/28/2021 History of Guillain-[place] sy ndrome due to 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 04/28/2021 [...] 10/27/2023 7:00 AM EDT Office Visit Pharmacy, [address] [place] [address] [place] [address] 10/31/2023 7:30 AM EDT Imaging Vascular Lab, [facility] [address] [address] 11/08/2023 8:30 AM EDT Office Visit Vascular Surgery, [address] [place] [address] Manjo Chan MD [address] [place] [address] 05/13/2024 7:20 AM EDT Office Visit Family Medicine [address] [place] [phone] Gabriele Dumas MD [address] [place] [address] [place] [address] 05/23/2024 9:30 AM EDT Office Visit Ophthalmology, [facility] [address] [place] [address] Lester Livingston, DO 21 [facility] [place] [address] Health Maintenance Due Date Last Done Comments [...] this encounter Medical Devices Implanted Type Area Assistant Professor Of Nursing Device Identifier Shelf Expiration Date Model / Serial / Lot Filter Navalign Femoral Tulip - [id number] Implanted:Qty: 1 on 04/21/2010 at [place] [facility] Right: Inferior Vena Cava COOK : [employer] 04/12/2013 [id number] / / [id number] [place] Acetabular Liner +4 [id number] 52mm Od Implanted:Qty: 1 on 04/22/2010 at [place] [facility] Right: Hip 03/16/2015 1221-36-152 / / [id number] Stem [place] Por Tpr Stdoff S6 - [id number] Implanted:Qty: 1 on 04/22/2010 at [place] [facility] Right: Hip JNJ : [employer] 02/14/2020 [id number] / / [id number] Head Mtl Artic [place] 36mm Pl5 - [id number] Implanted:Qty: 1 on 04/22/2010 at OR [facility] Right: Hip JNJ : [employer] 12/14/2014 [id number] / / [id number] Fem Acet [place] 300 52mm - [id number] Implanted:Qty: 1 on 04/22/2010 at OR [facility] Right: Hip JNJ : [employer] [id number] / / [id number] Screw Selftap 3.5x55 204.855 - [id number] Implanted:Qty: 1 on 04/22/2010 at OR [facility] Right: Hip SYNTHES 204.855 / / Screw Canc 4mm 206.065 - [id number] Implanted:Qty: 1 on 04/22/2010 at OR [facility] Right: Hip SYNTHES 206.065 / / Screw Canc [place] 6.5x50mm - [id number] Implanted:Qty: 1 on 04/22/2010 at OR [facility] Right: Hip JNJ : [employer] [id number] / / [id number] Screw Canc [place] 6.5x30mm - [id number] Implanted:Qty: 1 on 04/22/2010 at [facility] Right: Hip JNJ : [employer] 02/14/2020 [id number] / / [id number] Screw Selftap 3.5x55 204.855 - [id number] Implanted:Qty: 2 on 04/22/2010 at OR [facility] Right: Hip SYNTHES 204.855 / / Screw Canc 4mm 206.065 - [id number] Implanted:Qty: 1 on 04/22/2010 at OR [facility] Right: Hip SYNTHES 206.065 / / Screw Canc [place] 6.5x15mm - [id number] Implanted:Qty: 1 on 04/22/2010 at OR [facility] Right: Hip JNJ : [employer] 02/14/2020 [id number] / / [id number] Lens 20.5 [id number] - [id number] 039 - [id number] Implanted:Qty: 1 on 10/14/2020 by Lester Livingston, DO at OR [facility] Right: Eye DUANE : SURGICAL 2025 [id number] / [id number] / Lens 20.0 [id number] - [id number] 086 - [id number] Implanted:Qty: 1 on 12/09/2020 by Lester Livingston, at OR [facility] Left: Eye DUANE : SURGICAL 07/13/2025 [id number] 0 / [id number] / documented as of this encounter Procedures Procedure Name Priority Date/Time Associated Diagnosis Comments CTA ABD AORTA/FEM RUNOFF W CONTRAST Routine 10/09/2023 documented in this encounter Results * CTA ABD AORTA/FEM RUNOFF W CONTRAST (10/09/2023) Anatomical Region Laterality Modality Abdomen, Pelvis, Body, Lower Extremity Other 10/09/2023 Raphael Garza MD RAD CT documented in this encounter Advance Directives * Full Code (Latest Code Status on File) Date Activated Date Inactivated Comments 04/22/2010 6:35 PM 04/27/2010 9:02 PM Question Answer Comments Discussion of Advance Directives occurred with: Not Discussed Care Teams Supervisor Stripping Relationship Specialty Start Date End Date Gabriele Dumas MD [address] [place] [address] [place] [address] PCP - General Family Medicine 06/04/21 documented as of this encounter
--- OUTSIDE RECORDS SUMMARY | 2024-03-23 11:53 | External Medical Summary ---
Author Name Unknown Address Unknown Organization K01:[facility] [place] [address] [place] [address] Laboratory Report Ordering Provider Test Date Status COLEEN ALMAZAN 10/25/2023 11:30:32 Rochelle l Normal: <30 mg/g creatinine< br/>High: 30-300 mg/g creatinine
Very High: >300 mg/g creatinine
Nephrotic: >2200 mg/g creatinine Observation Date Value Abnormality Reference (Units ) Status Albumin, Urine 10/25/2023 11:30:32 <1.20 (mg/dL) Final Creatinine, Urine 10/25/2023 11:30:32 53 (mg/dL) Final Albumin/Creatinine [Mass Ratio] in Urine 10/25/2023 11:30:32 <23 <30 (mg/g Creat) Final Performing Location [facility] [place] [facility] [place] [address]
--- OUTSIDE RECORDS SUMMARY | 2024-03-23 11:54 | External Medical Summary | Summary of Care ---
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 (statuses as of 10/03/2023) Medications Medication Sig Dispensed Refills Start Date [...] as of this encounter (statuses as of 10/03/2023) Active Problems Problem Noted Date Diagnosed Date History of pancreatitis 11/18/2022 Chronic bilateral low back pain 05/18/2022 Acquired absence of other left toe(s) 03/16/2022 Mild nonproliferative diabet ic retinopathy of both eyes without macular edema associated with type 2 diabetes mellitus 03/16/2022 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 She is needing Dr. Dumas to sign and date Podiatry notes from Dr. Seth 7.8.24 , as well as the certifying physician statement. - attn: Nahed. Please advise. Thank you. * Telephone Encounter - Niki Madrigal RN - 09/28/2023 8:27 AM EDT I had the provider sign/date beside his electronic signature and faxed again * Telephone Encounter - Luana Estrada OSA - 09/26/2023 11:30 AM EDT Caller requesting the following information to be faxed: Name/Company of caller: [employer] Information requested to be faxed: Signed/Dated Last office Notes Needed Fax number: [phone] Attention to Name/Company: [employer] Any additional information?: Information needed to complete order * Telephone Encounter - Niki Madrigal RN - 09/19/2023 7:04 AM EDT Faxed Pt gets diabetic shoes from this company * Telephone Encounter - Deanna Louise OSA - 09/12/2023 10:21 AM EDT Caller requesting the following information to be faxed: Name/Company of caller: [employer] Information requested to be faxed: office notes from 08-31-23 visit Fax number: [phone] Attention to Name/Company: [employer] Any additional information?: documented in this encounter Plan of Treatment Upcoming Encounters Date Type Department Care Team (Late st Contact Info) Description 10/27/2023 7:00 AM EDT Office Visit Pharmacy, [address] [place] [address] [place] [address] 10/31/2023 7:30 AM EDT Imaging Vascular Lab, [facility] 2nd [facility] [address] [facility] [place] [address] 11/08/2023 8:30 AM EDT Office Visit Vascular Surgery, [facility] [address] [facility] [place] [address] Manoj Chan MD [address] [place] [address] 05/13/2024 7:20 AM EDT Office Visit Family Medicine [address] [place] [phone] Gabriele Dumas MD [address] [place] [address] [place] [address] 05/23/2024 9:30 AM EDT Office Visit Ophthalmology, [facility] [address] [facility] [place] [address] Lester Livingston, DO [facility] [place] [address] Health Maintenance Due Date Last Done Comments Pneumococcal Vaccine: 65+ Years (1 of 2 - PCV) 06/16/1956 DTaP,Tdap,and Td Vaccines (1 - Tdap) 1968 Colonoscopy 1994 Fecal Occult Blood Test 1994 Sigmoidoscopy 1994 Adult Wellness Visit 06/16/2015 Depression Screening 06/04/2022 06/04/2021 COVID-19 Vaccine ( season) 2022 Albumin/Creatinine Ratio 03/16/2023 023, 04/28/2021, 02/20/2020, Additional history exists Diabetic Foot Exam 02/28/2024 02/27/2023, 0 03/16/2022, 02/20/2020, Additional history exists HbA1c 03/06/2024 09/04/2023, 02/0 03/2023, 11/21/2022, Additional history exists GFR 09/03/2024 09/04/2023, 05/15, 03/17/2023, Additional history exists Diabetic Eye Exam [...] this encounter Medical Devices Implanted Type Area Health Concierge Device Identifier Shelf Expiration Date Model / Serial / Lot Filter Navalign Femoral Tulip - [id number] Implanted:Qty: 1 on 04/21/2010 at OR [facility] Right: Inferior Vena Cava COOK : [employer] 04/12/2013 [id number] / / [id number] Manning Acetabular Liner +4 [id number] Id 52mm Od Implanted:Qty: 1 on 04/22/2010 at OR [facility] Right: Hip 03/16/2015 1221-36-152 / / [id number] Stem [place] Por Tpr Stdoff S6 - [id number] Implanted:Qty: 1 on 04/22/2010 at OR [facility] Right: Hip JNJ : [employer] 02/14/2020 [id number] / / [id number] Head Mtl Artic Edwardo 36mm Pl5 - [id number] Implanted:Qty: 1 on 04/22/2010 at OR [facility] Right: Hip JNJ : [employer] 12/14/2014 [id number] / / [id number] Fem Acet Manning 300 52mm - [id number] Implanted:Qty: 1 on 04/22/2010 at OR [facility] Right: Hip JNJ : [employer] [id number] / / [id number] Screw Selftap 3.5x55 204.855 - [id number] Implanted:Qty: 1 on 04/22/2010 at OR [facility] Right: Hip SYNTHES 204.855 / / Screw Canc 4mm 206.065 - [id number] Implanted:Qty: 1 on 04/22/2010 at [facility] Right: Hip SYNTHES 206.065 / / Screw Canc Manning 6.5x50mm - [id number] Implanted:Qty: 1 on 04/22/2010 at OR [facility] Right: Hip JNJ : [employer] [id number] / / [id number] Screw Canc Manning 6.5x30mm - [id number] Implanted:Qty: 1 on 04/22/2010 at OR [facility] Right: Hip JNJ : [employer] 02/14/2020 [id number] / / [id number] Screw Selftap 3.5x55 204.855 - [id number] Implanted:Qty: 2 on 04/22/2010 at OR [facility] Right: Hip SYNTHES 204.855 / / Screw Canc 4mm 206.065 - [id number] Implanted:Qty: 1 on 04/22/2010 at OR [facility] Right: Hip SYNTHES 206.065 / / Screw Canc Manning 6.5x15mm - [id number] Implanted:Qty: 1 on 04/22/2010 at OR [facility] Right: Hip JNJ : [employer] 02/14/2020 [id number] / / [id number] Lens 20.5 [id number] - [id number] - [id number] Implanted:Qty: 1 on 10/14/2020 by Lester Livingston DO at OR [facility] Right: Eye DUANE : SURGICAL 2025 [id number] / [id number] / Lens 20.0 [id number] - [id number] 086 - [id number] Implanted:Qty: 1 on 12/09/2020 by Lester Livingston DO at OR [facility] Left: Eye DUANE : SURGICAL 07/13/2025 [id number] / [id number] / documented as of this encounter Advance Directives * Full Code (Latest Code Status on File) Date Activated Date Inactivated Comments 04/22/2010 6:35 PM 04/27/2010 9:02 PM Question Answer Comments Discussion of Advance Directives occurred with: Not Discussed Care Teams Lipstick Molder Relationship Specialty Start Date End Date Gabriele Dumas MD [address] [place] [address] [place] [phone] PCP - General Family Medicine 06/04/21 documented as of this encounter
--- OUTSIDE RECORDS SUMMARY | 2024-03-23 11:54 | External Medical Summary | Summary of Care ---
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 (statuses [...] 04/28/2021 History of osteomyelitis 04/28/2021 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 04/28/2021 [...] 10/27/2023 7:00 AM EDT Office Visit Pharmacy, [address] [place] [address] [place] [address] 10/31/2023 7:30 AM EDT Imaging Vascular Lab, [facility] [address]nd [address] [address] 11/08/2023 8:30 AM EDT Office Visit Vascular Surgery, [address] [place] [address] Manoj Chan MD [address] [place] [address] 05/13/2024 7:20 AM EDT Office Visit Family Medicine [address] [place] [phone] Gabriele Dumas MD [address] [place] [address] [place] [address] 05/23/2024 9:30 AM EDT Office Visit Ophthalmology, [facility] [address] [place] [address] Lester Livingston, DO [address] [facility] [place] [address] Health Maintenance Due Date Last Done Comments [...] this encounter Medical Devices Implanted Type Area Food Service Counter Clerk Device Identifier Shelf Expiration Date Model / Serial / Lot Filter Navalign Femoral Tulip - [id number] Implanted:Qty: 1 on 04/21/2010 at OR [facility] Right: Inferior Vena Cava COOK : [employer] 04/12/2013 [id number] / / [id number] [place] Acetabular Liner +4 [id number] Id 52mm Od Implanted:Qty: 1 on 04/22/2010 at OR [facility] Right: Hip 03/16/2015 1221-36-152 / / [id number] Stem [place] Por Tpr Stdoff S6 - [id number] Implanted:Qty: 1 on 04/22/2010 at OR [facility] Right: Hip JNJ : [employer] 02/14/2020 [id number] / / [id number] Head Mtl Artic Edwardo 36mm Pl5 - [id number] Implanted:Qty: 1 on 04/22/2010 at OR [facility] Right: Hip JNJ : [employer] 12/14/2014 [id number] / / [id number] Fem Acet [place] 300 52mm - [id number] Implanted:Qty: 1 on 04/22/2010 at OR [facility] Right: Hip JNJ : [employer] [id number] / / [id number] Screw Selftap 3.5x55 204.855 - [id number] Implanted:Qty: 1 on 04/22/2010 at OR [facility] Right: Hip SYNTHES 204.855 / / Screw Canc 4mm 206.065 - [id number] Implanted:Qty: 1 on 04/22/2010 at OR [facility] Right: Hip SYNTHES 206.065 / / Screw Canc [place] 6.5x50mm - [id number] Implanted:Qty: 1 on 04/22/2010 at OR [facility] Right: Hip JNJ : [employer] [id number] / / [id number] Screw Canc [place] 6.5x30mm - [id number] Implanted:Qty: 1 on 04/22/2010 at [facility] Right: Hip JNJ : [employer] 02/14/2020 [id number] / / [id number] Screw Selftap 3.5x55 204.855 - [id number] Implanted:Qty: 2 on 04/22/2010 at OR [facility] Right: Hip SYNTHES 204.855 / / Screw Canc 4mm 206.065 - [id number] Implanted:Qty: 1 on 04/22/2010 at OR [facility] Right: Hip SYNTHES 206.065 / / Screw Canc [place] 6.5x15mm - [id number] Implanted:Qty: 1 on 04/22/2010 at OR [facility] Right: Hip JNJ : [employer] 02/14/2020 [id number] / / [id number] Lens 20.5 [id number] - [id number] 039 - [id number] Implanted:Qty: 1 on 10/14/2020 by Lester Livingston, DO at OR [facility] Right: Eye DUANE : SURGICAL 2025 [id number] / [id number] / Lens 20.0 [id number] - [id number] 086 - [id number] Implanted:Qty: 1 on 12/09/2020 by Lester Livingston, DO at OR [facility] Left: Eye DUANE : SURGICAL 07/13/2025 [id number] 0 / [id number] / documented as of this encounter Procedures Procedure Name Priority Date/Time Associated Diagnosis Comments CHEMISTRY-OUTSIDE Routine 10/09/2023 documented in this encounter Results * CHEMISTRY-OUTSIDE (10/09/2023) Not all results display below - see scan for full detail OUTSIDE LAB (SEE SCANNED REPORT) Comment:ED LABS - [facility] CREATININE-OUTSID E LAB OUTSIDE LAB (SEE SCANNED REPORT) EGFR-OUTSIDE LAB OUT SIDE LAB (SEE SCANNED REPORT) POTASSIUM-OUTSIDE LAB OUTSIDE LAB (SEE SCANNED REPORT) GLUCOSE-OUTSIDE LAB OUTSIDE LAB (SEE SCANNED REPORT) HOURS FASTING [...] LAB OUTSIDE LAB (SEE SCANNED REPORT) HEMOGLOBIN, F9N-XELWGIV LAB OUTSIDE LAB (SEE SCANNED REPORT) PHOSPHORUS-OUTSID E LAB OUTSIDE LAB (SEE SCANNED REPORT) PTH-OUTSIDE LAB OUTS KEE LAB (SEE SCANNED REPORT) MICROALBUMIN RATIO-OUTSIDE LAB OUTSIDE LA B (SEE SCANNED REPORT) PROTEIN, UA-OUTSIDE LAB OUTSIDE LAB (SEE SCANNED REPORT) HGB 15.5 13.5 - 18.0 G/DL OUTSIDE LAB (SEE SCANNED REPORT) 10/09/2023 Raphael Garza MD LABORATORY OUTSIDE LAB (SEE SCANNED REPORT) documented in this encounter Advance Directives * Full Code (Latest Code Status on File) Date Activated Date Inactivated Comments 04/22/2010 6:35 PM 04/27/2010 9:02 PM Question Answer Comments Discussion of Advance Directives occurred with: Not Discussed Care Teams Scheduler Relationship Specialty Start Date End Date Gabriele Dumas MD [address] [place] [address] [place] [phone] PCP - General Family Medicine 06/04/21 documented as of this encounter
--- OUTSIDE RECORDS SUMMARY | 2024-03-23 11:54 | External Medical Summary | Summary of Care ---
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 (statuses as of 10/04/2023) Medications Medication Sig Dispensed Refills Start Date [...] as of this encounter (statuses as of 10/04/2023) Active Problems Problem Noted Date Diagnosed Date History of pancreatitis 11/18/2022 Chronic bilateral low back pain 05/18/2022 Acquired absence of other left toe(s) 03/16/2022 Mild nonproliferative diabet ic retinopathy of both eyes without macular edema associated with type 2 diabetes mellitus 03/16/2022 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 03/16/2022 Amputation of toe of left foot 04/28/2021 History of osteomyelitis 04/28/2021 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 Please fax KATALINA. * Telephone Encounter - Niki Madrigal RN - 10/03/2023 2:31 PM EDT On provider desk for signature, maddie we will fax it * Telephone Encounter - Raven Macias OSA - 10/03/2023 11:43 AM EDT Nahed calling in from [employer]. She is needing Dr. Dumas to sign [...] information to be faxed: Name/Company of caller: [employer] Information requested to be faxed: Signed/Dated Last office Notes Needed Fax number: [phone] Attention to Name/Company: [employer] Any [...] office notes from 08-31-23 visit Fax number: [phone] Attention to Name/Company: [employer] Any additional information?: documented in this encounter Plan of Treatment Upcoming Encounters Date Type Department Care Team (Late st Contact Info) Description 10/27/2023 7:00 AM EDT Office Visit Pharmacy, [address] [place] [address] [place] [address] 10/31/2023 7:30 AM EDT [facility] [address] [facility] [place] [address] 11/08/2023 8:30 AM EDT Office Visit Vascular Surgery, [address] [place] [address] Manoj Chan MD [address] [place] [address] 05/13/2024 7:20 AM EDT Office Visit Family Medicine [address] [place] [phone] Gabriele Dumas MD [address] [place] [address] [place] [address] 05/23/2024 9:30 AM EDT Office Visit Ophthalmology, [facility] [address] [facility] [place] [address] Lester Livingston, DO [facility] [address] Health Maintenance Due Date Last Done Comments Pneumococcal Vaccine: 65+ Years (1 of 2 - PCV) 06/16/1956 DTaP,Tdap,and Td Vaccines (1 - Tdap) 1968 Colonoscopy 1994 Fecal Occult Blood Test 1994 Sigmoidoscopy 1994 Adult Wellness Visit 06/16/2015 Depression Screening 06/04/2022 06/04/2021 COVID-19 Vaccine ( - 2022- season) 2022 Albumin/Creatinine Ratio 03/16/[address] 023, 04/28/2021, 02/20/2020, Additional history exists Diabetic Foot Exam 02/28/2024 02/27/2023, 0 03/16/2022, 02/20/2020, Additional history exists HbA1c 03/06/2024 09/04/2023, 020 03/2023, 11/21/2022, Additional history exists GFR 09/03/2024 [...] this encounter Medical Devices Implanted Type Area Camera Control Operator Device Identifier Shelf Expiration Date Model / Serial / Lot Filter Navalign Femoral Tulip - [id number] Implanted:Qty: 1 on 04/21/2010 at OR [facility] Right: Inferior Vena Cava COOK : [employer] 04/12/2013 [id number] / / [id number] [place] Acetabular Liner +4 [id number] Id 52mm Od Implanted:Qty: 1 on 04/22/2010 at OR [facility] Right: Hip 03/16/2015 1221-36-152 / / [id number] Stem Bee Por Tpr Stdoff S6 - [id number] Implanted:Qty: 1 on 04/22/2010 at OR [facility] Right: Hip JNJ : [employer] 02/14/2020 [id number] / / [id number] Head Mtl Artic Edwardo 36mm Pl5 - [id number] Implanted:Qty: 1 on 04/22/2010 at OR [facility] Right: Hip JNJ : [employer] 12/14/2014 [id number] / / [id number] Cup Fem Acet [place] 300 52mm - [id number] Implanted:Qty: 1 on 04/22/2010 at OR [facility] Right: Hip JNJ : [employer] [id number] / / [id number] Screw Selftap 3.5x55 204.855 - [id number] Implanted:Qty: 1 on 04/22/2010 at OR [facility] Right: Hip SYNTHES 204.855 / / Screw Canc 4mm 206.065 - [id number] Implanted:Qty: 1 on 04/22/2010 at OR [facility] Right: Hip SYNTHES 206.065 / / Screw Canc [place] 6.5x50mm - [id number] Implanted:Qty: 1 on 04/22/2010 at OR [facility] Right: Hip JNJ : [employer] [id number] / / [id number] Screw Canc [place] 6.5x30mm - [id number] Implanted:Qty: 1 on 04/22/2010 at OR [facility] Right: Hip JNJ : [employer] 02/14/2020 [id number] / / [id number] Screw Selftap 3.5x55 204.855 - [id number] Implanted:Qty: 2 on 04/22/2010 at OR [facility] Right: Hip SYNTHES 204.855 / / Screw Canc 4mm 206.065 - [id number] Implanted:Qty: 1 on 04/22/2010 at OR [facility] Right: Hip SYNTHES 206.065 / / Screw Canc [place] 6.5x15mm - [id number] Implanted:Qty: 1 on 04/22/2010 at OR [facility] Right: Hip JNJ : [employer] 02/14/2020 [id number] / / [id number] Lens 20.5 [id number] - [id number] 039 - [id number] Implanted:Qty: 1 on 10/14/2020 by Lester Livingston DO at OR [facility] Right: Eye DUANE : SURGICAL 2025 [id number] / [id number] / Lens 20.0 [id number] - [id number] - [id number] Implanted:Qty: 1 on 12/09/2020 by Lester Livingston DO at OR [facility] Left: Eye DUANE : SURGICAL 07/13/2025 [id number] 0 / [id number] / documented as of this encounter Advance Directives * Full Code (Latest Code Status on File) Date Activated Date Inactivated Comments 04/22/2010 6:35 PM 04/27/2010 9:02 PM Question Answer Comments Discussion of Advance Directives occurred with: Not Discussed Care Teams Substation Electrician Relationship Specialty Start Date End Date Gabriele Dumas MD [address] [place] [address] [place] [address] PCP - General Family Medicine 06/04/21 documented as of this encounter
--- OUTSIDE RECORDS SUMMARY | 2024-03-23 11:54 | External Medical Summary | Summary of Care ---
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 She is needing Dr. Dumas to sign [...] information to be faxed: Name/Company of caller: [employer] Information requested to be faxed: Signed/Dated Last office Notes Needed Fax number: [phone] Attention to Name/Company: [employer] Any additional information?: Information needed to complete order * Telephone Encounter - Niki Madrigal RN - 09/19/2023 7:04 AM EDT Faxed Pt gets diabetic shoes from this company * Telephone Encounter - Deanna Louise OSA - 09/12/2023 10:21 AM EDT Caller requesting the following information to be faxed: Name/Company of caller: [employer] Information requested to be faxed: office notes from 08-31-23 visit Fax number: [phone] Attention to Name/Company: [employer] Any additional information?: documented in this encounter Plan of Treatment Upcoming Encounters Date Type Department Care Team (Late st Contact Info) Description 10/27/2023 7:00 AM EDT Office Visit Pharmacy, [address] [place] [address] [place] [address] 10/31/2023 7:30 AM EDT [facility] [address] [facility] [place] [address] 11/08/2023 8:30 AM EDT Office Visit Vascular Surgery, [facility] [address] [facility] [place] [address] Manoj Chan MD [address] [facility] [place] [address] 05/13/2024 7:20 AM EDT Office Visit Family Medicine [address] [place] [phone] Gabriele Dumas MD [address] [place] [address] [place] [address] 05/23/2024 9:30 AM EDT Office Visit Ophthalmology, [facility] [address] [facility] [place] [address] Lester Livingston DO [facility] [place] [address] Health Maintenance Due Date Last Done Comments [...] 11/21/2022, Additional history exists GFR 09/03/2024 09/04/2023, 0410/2023, 03/17/2023, Additional history exists Diabetic Eye Exam [...] this encounter Medical Devices Implanted Type Area Die Presser Device Identifier Shelf Expiration Date Model / Serial / Lot Filter Navalign Femoral Tulip - [id number] Implanted:Qty: 1 on 04/21/2010 [place] [facility] [place]: Inferior Vena Cava COOK : [employer] 04/12/2013 [id number] / / [id number] [place] Acetabular Liner +4 [id number] 52mm Od Implanted:Qty: 1 on 04/22/2010 at [place] [facility] [place] Right: Hip 03/16/2015 1221-36-152 / / [id number] Stem [place] Por Tpr Stdoff S6 - [id number] Implanted:Qty: 1 on 04/22/2010 at [place] [facility] [place]: Hip JNJ : [employer] 02/14/2020 [id number] / / [id number] Head Mtl Artic Edwardo 36mm Pl5 - [id number] Implanted:Qty: 1 on 04/22/2010 at [place] [facility] [place]: Hip JNJ : [employer] 12/14/2014 [id number] / / [id number] Cup Fem Acet [place] 300 52mm - [id number] Implanted:Qty: 1 on 04/22/2010 at [place] [facility] [place]: Hip JNJ : [employer] [id number] / / [id number] Screw Selftap 3.5x55 204.855 - [id number] Implanted:Qty: 1 on 04/22/2010 at [place] [facility] [place] Right: Hip SYNTHES 204.855 / / Screw Canc 4mm 206.065 - [id number] Implanted:Qty: 1 on 04/22/2010 at [place] [facility] [place] Right: Hip SYNTHES 206.065 / / Screw Canc [place] 6.5x50mm - [id number] Implanted:Qty: 1 on 04/22/2010 at [place] [facility] [place] Right: Hip JNJ : [employer] [id number] / / [id number] Screw Canc [place] 6.5x30mm - [id number] Implanted:Qty: 1 on 04/22/2010 at [place] [facility] [place]: Hip JNJ : [employer] 02/14/2020 [id number] / / [id number] Screw [place]ft[place] 3.5x55 204.855 - [id number] Implanted:Qty: 2 on 04/22/2010 at [place] [facility] [place]: Hip SYNTHES 204.855 / / Screw Canc 4mm 206.065 - [id number] Implanted:Qty: 1 on 04/22/2010 at [place] [facility] Right: Hip SYNTHES 206.065 / / Screw Canc [place] 6.5x15mm - [id number] Implanted:Qty: 1 on 04/22/2010 at [place] [facility] [place]: Hip JNJ : [employer] 02/14/2020 [id number] / / [id number] Lens 20.5 [id number] - [id number] 039 - [id number] Implanted:Qty: 1 on 10/14/2020 by Lester Livingston DO at OR [facility] Right: Eye DUANE : SURGICAL 2025 [id number] / [id number] / Lens 20.0 [id number] - [id number] 086 - [id number] Implanted:Qty: 1 on 12/09/2020 by Lester Livingston DO at OR [facility] Left: Eye DUANE : SURGICAL 07/13/2025 [id number] 0 / [id number] / documented as of this encounter Advance Directives * Full Code (Latest Code Status on File) Date Activated Date Inactivated Comments 04/22/2010 6:35 PM 04/27/2010 9:02 PM Question Answer Comments Discussion of Advance Directives occurred with: Not Discussed Care Teams Retail Warehouse Supervisor Relationship Specialty Start Date End Date Gabriele Dumas MD [address] [place] [address] [place] [phone] PCP - General Family Medicine 06/04/21 documented as of this encounter
--- OUTSIDE RECORDS SUMMARY | 2024-03-23 11:54 | External Medical Summary | Summary of Care ---
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 documented as of this encounter (statuses as of 10/05/2023) Medications Medication Sig Dispensed Refills Start Date [...] as of this encounter (statuses as of 10/05/2023) Active Problems Problem Noted Date Diagnosed Date History of pancreatitis 11/18/2022 Chronic bilateral low back pain 05/18/2022 Acquired absence of other left toe(s) 03/16/2022 Mild nonproliferative diabet ic retinopathy of both eyes without macular edema associated with type 2 diabetes mellitus 03/16/2022 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 03/16/2022 Amputation of toe of left foot 04/28/2021 History of osteomyelitis 04/28/2021 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 Please fax KATALINA. * Telephone Encounter - Niki Madrigal RN - 10/03/2023 2:31 PM EDT On provider desk for signature, maddie we will fax it * Telephone Encounter - Raven Macias OSA - 10/03/2023 11:43 AM EDT Nahed calling in from [employer]. She is needing Dr. Duams to sign and date Podiatry notes from [...] Signed/Dated Last office Notes Needed Fax number: [phone] Attention to Name/Company: [employer] Any [...] office notes from 08-31-23 visit Fax number: [phone] Attention to Name/Company: [employer] Any additional information?: documented in this encounter Plan of Treatment Upcoming Encounters Date Type Department Care Team (Late st Contact Info) Description 10/27/2023 7:00 AM EDT Office Visit Pharmacy, [address] [place] [address] [place] [address] 10/31/2023 7:30 AM EDT [facility] [place] [address] 11/08/2023 8:30 AM EDT Office Visit Vascular Surgery, [address] [place] [address] Manoj Chan MD [address] [place] [address] 05/13/2024 7:20 AM EDT Office Visit Family Medicine [address] [place] [phone] Gabriele Dumas MD [address] [place] [address] [place] [address] 05/23/2024 9:30 AM EDT Office Visit Ophthalmology, [facility] [address] [facility] [place] [address] Lester Livingston, DO [address] [facility] [address] [place] [address] Health Maintenance Due Date Last Done Comments [...] this encounter Medical Devices Implanted Type Area Fishing Boat Mate Device Identifier Shelf Expiration Date Model / Serial / Lot Filter Navalign Femoral Tulip - [id number] Implanted:Qty: 1 on 04/21/2010 at [place] [facility] [place]: Inferior Vena Cava COOK : [employer] 04/12/2013 [id number] / / [id number] [place] Acetabular Liner +4 [id number] Id 52mm Od Implanted:Qty: 1 on 04/22/2010 at [place] [facility] Right: Hip 03/16/2015 1221-36-152 / / [id number] Stem [place] Por Tpr Stdoff S6 - [id number] Implanted:Qty: 1 on 04/22/2010 at [place] [facility] Right: Hip JNJ : [employer] 02/14/2020 [id number] / / [id number] Head Mtl Artic [place] 36mm Pl5 - [id number] Implanted:Qty: 1 on 04/22/2010 at [place] [facility] Right: Hip JNJ : [employer] 12/14/2014 [id number] / / [id number] Cup Fem Acet [place] 300 52mm - [id number] Implanted:Qty: 1 on 04/22/2010 at [place] [facility] Right: Hip JNJ : [employer] [id number] / / [id number] Screw [place]ft[place] 3.5x55 204.855 - [id number] Implanted:Qty: 1 on 04/22/2010 at [place] [facility] Right: Hip SYNTHES 204.855 / / Screw Canc 4mm 206.065 - [id number] Implanted:Qty: 1 on 04/22/2010 at [place] [facility] Right: Hip SYNTHES 206.065 / / Screw Canc [place] 6.5x50mm - [id number] Implanted:Qty: 1 on 04/22/2010 at [place] [facility] Right: Hip JNJ : [employer] [id number] / / [id number] Screw Canc [place] 6.5x30mm - [id number] Implanted:Qty: 1 on 04/22/2010 at [place] [facility] Right: Hip JNJ : [employer] 02/14/2020 [id number] / / [id number] Screw [place] 3.5x55 204.855 - [id number] Implanted:Qty: 2 on 04/22/2010 at [place] [facility] Right: Hip SYNTHES 204.855 / / Screw Canc 4mm 206.065 - [id number] Implanted:Qty: 1 on 04/22/2010 at [place] [facility] Right: Hip SYNTHES 206.065 / / Screw Canc [place] 6.5x15mm - [id number] Implanted:Qty: 1 on 04/22/2010 at [place] [facility] Right: Hip JNJ : [employer] 02/14/2020 [id number] / / [id number] Lens 20.5 [id number] - [id number] 039 - [id number] Implanted:Qty: 1 on 10/14/2020 by Lester Livingston DO at OR [facility] Right: Eye DUANE : SURGICAL 2025 [id number] 5 / [id number] 039 / Lens 20.0 [id number] - [id number] 086 - [id number] Implanted:Qty: 1 on 12/09/2020 by Lester Livingston DO at OR [facility] Left: Eye DUANE : SURGICAL 07/13/2025 [id number] 0 / [id number] 086 / documented as of this encounter Advance Directives * Full Code (Latest Code Status on File) Date Activated Date Inactivated Comments 04/22/2010 6:35 PM 04/27/2010 9:02 PM Question Answer Comments Discussion of Advance Directives occurred with: Not Discussed Care Teams Retail Stock Clerk Relationship Specialty Start Date End Date Gabriele Dumas MD [address] [place] [address] [place] [address] PCP - General Family Medicine 06/04/21 documented as of this encounter
--- OUTSIDE RECORDS SUMMARY | 2024-03-23 11:54 | External Medical Summary | Summary of Care ---
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 documented as of this encounter (statuses as of 10/09/2023) Medications Medication Sig Dispensed Refills Start Date [...] as of this encounter (statuses as of 10/09/2023) Active Problems Problem Noted Date Diagnosed Date History of pancreatitis 11/18/2022 Chronic bilateral low back pain 05/18/2022 Acquired absence of other left toe(s) 03/16/2022 Mild nonproliferative diabet ic retinopathy of both eyes without macular edema associated with type 2 diabetes mellitus 03/16/2022 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 03/16/2022 Amputation of toe of left foot 04/28/2021 History of osteomyelitis 04/28/2021 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 Please fax KATALINA. * Telephone Encounter - Niki Madrigal RN - 10/03/2023 2:31 PM EDT On provider desk for signature, maddie we will fax it * Telephone Encounter - Raven Macias OSA - 10/03/2023 11:43 AM EDT Nahed calling in from [employer]. She is needing Dr. Dumas to sign [...] Signed/Dated Last office Notes Needed Fax number: [phone] Attention to Name/Company: [employer] Any [...] office notes from 08-31-23 visit Fax number: [phone] Attention to Name/Company: [employer] Any additional information?: documented in this encounter Plan of Treatment Upcoming Encounters Date Type Department Care Team (Late st Contact Info) Description 10/27/2023 7:00 AM EDT Office Visit Pharmacy, [address] [place] [address] [place] [address] 10/31/2023 7:30 AM EDT [facility] [address] [facility] [place] [address] 11/08/2023 8:30 AM EDT Office Visit Vascular Surgery, [address] [place] [address] Manoj Chan MD [address] [place] [address] 05/13/2024 7:20 AM EDT Office Visit Family Medicine [address] [place] [phone] Gabriele Dumas MD [address] [place] [address] [place] [address] 05/23/2024 9:30 AM EDT Office Visit Ophthalmology, [facility] [address] [facility] [place] [address] Lester Livingston, DO [facility] [place] [address] Health Maintenance Due Date Last Done Comments [...] this encounter Medical Devices Implanted Type Area Ironer Hand Device Identifier Shelf Expiration Date Model / Serial / Lot Filter Navalign Femoral Tulip - [id number] Implanted:Qty: 1 [place] [facility]: Inferior Vena Cava COOK : [employer] 04/12/2013 [id number] / / [id number] [place] Acetabular Liner +4 [id number] Id 52mm Od Implanted:Qty: 1 on 04/22/2010 [place] [facility] [place]: Hip 03/16/2015 1221-36-152 / / [id number] Stem [place] Por Tpr Stdoff S6 - [id number] Implanted:Qty: 1 on 04/22/2010 [place] [facility] [place]: Hip JNJ : [employer] 02/14/2020 [id number] / / [id number] Head Mtl Artic [place] 36mm Pl5 - [id number] Implanted:Qty: 1 on 04/22/2010 [place] [facility] [place]: Hip JNJ : [employer] 12/14/2014 [id number] / / [id number] Cup Fem Acet [place] 300 52mm - [id number] Implanted:Qty: 1 on 04/22/2010 [place] [facility] [place]: Hip JNJ : [employer] [id number] / / [id number] Screw [place] 3.5x55 204.855 - [id number] Implanted:Qty: 1 on 04/22/2010 [place] [facility] [place]: Hip SYNTHES 204.855 / / Screw Canc 4mm 206.065 - [id number] Implanted:Qty: 1 on 04/22/2010 [place] [facility] Right: Hip SYNTHES 206.065 / / Screw Canc [place] 6.5x50mm - [id number] Implanted:Qty: 1 on 04/22/2010 [place] [facility] [place]: Hip JNJ : [employer] [id number] / / [id number] Screw Canc [place] 6.5x30mm - [id number] Implanted:Qty: 1 on 04/22/2010 [place] [facility] [place]: Hip JNJ : [employer] 02/14/2020 [id number] / / [id number] Screw [place] 3.5x55 204.855 - [id number] Implanted:Qty: 2 on 04/22/2010 [place] [facility] [place]: Hip SYNTHES 204.855 / / Screw Canc 4mm 206.065 - [id number] Implanted:Qty: 1 on 04/22/2010 [place] [facility] Right: Hip SYNTHES 206.065 / / Screw Canc [place] 6.5x15mm - [id number] Implanted:Qty: 1 on 04/22/2010 [place] [facility] [place]: Hip JNJ : [employer] 02/14/2020 [id number] / / [id number] Lens 20.5 [id number] - [id number] 039 - [id number] Implanted:Qty: 1 on 10/14/2020 by Lester Livingston DO at [facility] Right: Eye DUANE : SURGICAL 2025 [id number] / [id number] / Lens 20.0 [id number] - [id number] 086 - [id number] Implanted:Qty: 1 on 12/09/2020 by Lester Livingston DO at OR [facility] Left: Eye DUANE : SURGICAL 07/13/2025 [id number] / [id number] / documented as of this encounter Advance Directives * Full Code (Latest Code Status on File) Date Activated Date Inactivated Comments 04/22/2010 6:35 PM 04/27/2010 9:02 PM Question Answer Comments Discussion of Advance Directives occurred with: Not Discussed Care Teams Eye Care Professional Relationship Specialty Start Date End Date Gabriele Dumas MD [address] [place] [address] [place] [address] PCP - General Family Medicine 06/04/21 documented as of this encounter
--- OUTSIDE RECORDS SUMMARY | 2024-03-23 11:54 | External Medical Summary | Summary of Care ---
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 documented as of this encounter (statuses as of 09/26/2023) Medications Medication Sig Dispensed Refills Start Date [...] as of this encounter (statuses as of 09/26/2023) Active Problems Problem Noted Date Diagnosed Date History of pancreatitis 11/18/2022 Chronic bilateral low back pain 05/18/2022 Acquired absence of other left toe(s) 03/16/2022 Mild nonproliferative diabet ic retinopathy of both eyes without macular edema associated with type 2 diabetes mellitus 03/16/2022 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 03/16/2022 Amputation of toe of left foot 04/28/2021 History of osteomyelitis 04/28/2021 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 04/28/2021 [...] as of this encounter (statuses as of 09/26/2023) Resolved Problems Problem Noted Date Diagnosed Date [...] as of this encounter (statuses as of 09/26/2023) Immunizations No known immunizationsdocumented as of this [...] encounter Miscellaneous Notes * Telephone Encounter - Luana Estrada OSA - 09/26/2023 11:30 AM EDT Caller requesting the following information to be faxed: Name/Company of caller: [employer] Information requested to be faxed: Signed/Dated Last office Notes Needed Fax number: [phone] Attention to Name/Company: [employer] Any additional information?: Information needed [...] office notes from 08-31-23 visit Fax number: [phone] Attention to Name/Company: [employer] Any additional information?: documented in this encounter Plan of Treatment Upcoming Encounters Date Type Department Care Team (Late st Contact Info) Description 10/27/2023 7:00 AM EDT Office Visit Pharmacy, [address] [place] [address] [place] [address] 10/31/2023 7:30 AM EDT [facility] [place] [address] 11/08/2023 8:30 AM EDT Office Visit Vascular Surgery, [address] [place] [address] Manoj Chan MD [address] [place] [address] 05/13/2024 7:20 AM EDT Office Visit Family Medicine [address] [place] [phone] Gabriele Dumas MD [address] [place] [address] [place] [address] 05/23/2024 9:30 AM EDT Office Visit Ophthalmology, [address] [place] [address] Lester Livingston, DO [facility] [place] [address] Health Maintenance Due Date Last Done Comments [...] this encounter Medical Devices Implanted Type Area Corrections Officer Device Identifier Shelf Expiration Date Model / Serial / Lot Filter Navalign Femoral Tulip - [id number] Implanted:Qty: 1 on 04/21/2010 at OR [facility] Right: Inferior Vena Cava COOK : [employer] 04/12/2013 [id number] / / [id number] [place] Acetabular Liner +4 [id number] 52mm Od Implanted:Qty: 1 on 04/22/2010 at OR [facility] Right: Hip 03/16/2015 1221-36-152 / / [id number] Stem [place] Por Tpr Stdoff S6 - [id number] Implanted:Qty: 1 on 04/22/2010 at OR [facility] Right: Hip JNJ : [employer] 02/14/2020 [id number] / / [id number] Head Mtl Artic Edwardo 36mm Pl5 - [id number] Implanted:Qty: 1 on 04/22/2010 at OR [facility] Right: Hip JNJ : [employer] 12/14/2014 [id number] / / [id number] Fem Acet [place] 300 52mm - [id number] Implanted:Qty: 1 on 04/22/2010 at OR [facility] Right: Hip JNJ : [employer] [id number] / / [id number] Screw Selft[place] 3.5x55 204.855 - [id number] Implanted:Qty: 1 on 04/22/2010 at OR [facility] Right: Hip SYNTHES 204.855 / / Screw Canc 4mm 206.065 - [id number] Implanted:Qty: 1 on 04/22/2010 at OR [facility] Right: Hip SYNTHES 206.065 / / Screw Canc [place] 6.5x50mm - [id number] Implanted:Qty: 1 on 04/22/2010 at OR [facility] Right: Hip JNJ : [employer] [id number] / / [id number] Screw Canc [place] 6.5x30mm - [id number] Implanted:Qty: 1 on 04/22/2010 at OR [facility] Right: Hip JNJ : [employer] 02/14/2020 [id number] / / [id number] Screw [place]ft[place] 3.5x55 204.855 - [id number] Implanted:Qty: 2 on 04/22/2010 at OR [facility] Right: Hip SYNTHES 204.855 / / Screw Canc 4mm 206.065 - [id number] Implanted:Qty: 1 on 04/22/2010 at OR [facility] Right: Hip SYNTHES 206.065 / / Screw Canc [place] 6.5x15mm - [id number] Implanted:Qty: 1 on 04/22/2010 at OR [facility] Right: Hip JNJ : [employer] 02/14/2020 [id number] / / [id number] Lens 20.5 [id number] - [id number] 039 - [id number] Implanted:Qty: 1 on 10/14/2020 by Lester Livingston DO at OR [facility] Right: Eye DUANE : SURGICAL 2025 [id number] / [id number] [id number] / Lens 20.0 [id number] - [id number] 086 - [id number] Implanted:Qty: 1 on 12/09/2020 by Lester Livingston DO at OR [facility] Left: Eye DUANE : SURGICAL 07/13/2025 [id number] 0 / [id number] / documented as of this encounter Advance Directives * Full Code (Latest Code Status on File) Date Activated Date Inactivated Comments 04/22/2010 6:35 PM 04/27/2010 9:02 PM Question Answer Comments Discussion of Advance Directives occurred with: Not Discussed Care Teams Embryology Teacher Relationship Specialty Start Date End Date Gabriele Dumas MD [address] [place] [address] [place] [address] PCP - General Family Medicine 06/04/21 documented as of this encounter
--- OUTSIDE RECORDS SUMMARY | 2024-03-23 11:54 | External Medical Summary | Summary of Care ---
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 Please fax KATALINA. * Telephone Encounter - Niki Madrigal RN - 10/03/2023 2:31 PM EDT On provider desk for signature, maddie we will fax it * Telephone Encounter - Raven Macias OSA - 10/03/2023 11:43 AM EDT Nahed calling in from [employer]. She is needing Dr. Dumas to sign [...] Signed/Dated Last office Notes Needed Fax number: [phone] Attention to Name/Company: [employer] Any [...] office notes from 08-31-23 visit Fax number: [phone] Attention to Name/Company: [employer] Any additional information?: documented in this encounter Plan of Treatment Upcoming Encounters Date Type Department Care Team (Late st Contact Info) Description 10/27/2023 7:00 AM EDT Office Visit Pharmacy, [address] [place] [address] [place] [address] 10/31/2023 7:30 AM EDT [facility] [address] [facility] [place] [address] 11/08/2023 8:30 AM EDT Office Visit Vascular Surgery, [address] [place] [address] Manoj Chan MD [address] [place] [address] 05/13/2024 7:20 AM EDT Office Visit Family Medicine [address] [place] [phone] Gabriele Dumas MD [address] [place] [address] [place] [address] 05/23/2024 9:30 AM EDT Office Visit Ophthalmology, [facility] [address] [facility] [place] [address] Lester Livingston, DO [facility] [address] Health Maintenance Due Date Last Done Comments [...] this encounter Medical Devices Implanted Type Area Captain/Check Airman Device Identifier Shelf Expiration Date Model / Serial / Lot Filter Navalign Femoral Tulip - [id number] Implanted:Qty: 1 on 04/21/2010 at OR [facility] Right: Inferior Vena Cava COOK : [employer] 04/12/2013 [id number] / / [id number] [place] Acetabular Liner +4 [id number] Id 52mm Od Implanted:Qty: 1 on 04/22/2010 at OR [facility] Right: Hip 03/16/2015 1221-36-152 / / [id number] Stem [place] Por Tpr Stdoff S6 - [id number] Implanted:Qty: 1 on 04/22/2010 at OR [facility] Right: Hip JNJ : [employer] 02/14/2020 [id number] / / [id number] Head Mtl Artic [place] 36mm Pl5 - [id number] Implanted:Qty: 1 on 04/22/2010 at OR [facility] Right: Hip JNJ : [employer] 12/14/2014 [id number] / / [id number] Cup Fem Acet [place] 300 52mm - [id number] Implanted:Qty: 1 on 04/22/2010 at OR [facility] Right: Hip JNJ : [employer] [id number] / / [id number] Screw Selftap 3.5x55 204.855 - [id number] Implanted:Qty: 1 on 04/22/2010 at OR [facility] Right: Hip SYNTHES 204.855 / / Screw Canc 4mm 206.065 - [id number] Implanted:Qty: 1 on 04/22/2010 at OR [facility] Right: Hip SYNTHES 206.065 / / Screw Canc [place] 6.5x50mm - [id number] Implanted:Qty: 1 on 04/22/2010 at OR [facility] Right: Hip JNJ : [employer] [id number] / / [id number] Screw Canc [place] 6.5x30mm - [id number] Implanted:Qty: 1 on 04/22/2010 at OR [facility] Right: Hip JNJ : [employer] 02/14/2020 [id number] / / [id number] Screw Selft[place] 3.5x55 204.855 - [id number] Implanted:Qty: 2 on 04/22/2010 at OR [facility] Right: Hip SYNTHES 204.855 / / Screw Canc 4mm 206.065 - [id number] Implanted:Qty: 1 on 04/22/2010 at OR [facility] Right: Hip SYNTHES 206.065 / / Screw Canc [place] 6.5x15mm - [id number] Implanted:Qty: 1 on 04/22/2010 at OR [facility] Right: Hip JNJ : [employer] 02/14/2020 [id number] / / [id number] Lens 20.5 [id number] - [id number] 039 - [id number] Implanted:Qty: 1 on 10/14/2020 by Lester Livingston DO at OR [facility] Right: Eye DUANE : SURGICAL 2025 [id number] 5 / [id number] 039 / Lens 20.0 [id number] - [id number] 086 - [id number] Implanted:Qty: 1 on 12/09/2020 by Lester Livingston DO at OR [facility] Left: Eye DUANE : SURGICAL 07/13/2025 [id number] 0 / [id number] / documented as of this encounter Advance Directives * Full Code (Latest Code Status on File) Date Activated Date Inactivated Comments 04/22/2010 6:35 PM 04/27/2010 9:02 PM Question Answer Comments Discussion of Advance Directives occurred with: Not Discussed Care Teams Fitter Welder Relationship Specialty Start Date End Date Gabriele Dumas MD [address] [place] [address] [place] [address] PCP - General Family Medicine 06/04/21 documented as of this encounter
--- OUTSIDE RECORDS SUMMARY | 2024-03-23 11:54 | External Medical Summary | Summary of Care ---
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 (statuses as of 09/28/2023) Medications Medication Sig Dispensed Refills Start Date [...] as of this encounter (statuses as of 09/28/2023) Active Problems Problem Noted Date Diagnosed Date History of pancreatitis 11/18/2022 Chronic bilateral low back pain 05/18/2022 Acquired absence of other left toe(s) 03/16/2022 Mild nonproliferative diabet ic retinopathy of both eyes without macular edema associated with type 2 diabetes mellitus 03/16/2022 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 03/16/2022 Amputation of toe of left foot 04/28/2021 History of osteomyelitis 04/28/2021 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 04/28/2021 [...] as of this encounter (statuses as of 09/28/2023) Resolved Problems Problem Noted Date Diagnosed Date [...] as of this encounter (statuses as of 09/28/2023) Immunizations No known immunizationsdocumented as of this [...] to be faxed: Name/Company of caller: [employer] Information requested to be faxed: Signed/Dated Last office Notes Needed Fax number: [phone] Attention to Name/Company: [employer] Any [...] office notes from 08-31-23 visit Fax number: [phone] Attention to Name/Company: [employer] Any additional information?: documented in this encounter Plan of Treatment Upcoming Encounters Date Type Department Care Team (Late st Contact Info) Description 10/27/2023 7:00 AM EDT Office Visit Pharmacy, [address] [place] [address] [place] [address] 10/31/2023 7:30 AM EDT Imaging Vascular Lab, [facility] [address] [place] [address] 11/08/2023 8:30 AM EDT Office Visit Vascular Surgery, [address] [place] [address] Manoj Chan MD [address] [place] [address] 05/13/2024 7:20 AM EDT Office Visit Family Medicine [address] [place] [address] Gabriele Dumas MD [address] [place] [address] [place] [address] 05/23/2024 9:30 AM EDT Office Visit Ophthalmology, [address] [place] [address] Lester Livingston, DO 21 [facility] [place] [address] Health Maintenance Due Date Last Done Comments Pneumococcal Vaccine: 65+ Years (1 of 2 - PCV) 06/16/1956 DTaP,Tdap,and Td Vaccines (1 - Tdap) 1968 Colonoscopy 1994 Fecal Occult Blood Test 1994 Sigmoidoscopy 1994 Adult Wellness Visit 06/16/2015 Depression Screening 06/04/2022 06/04/2021 COVID-19 Vaccine (1 - 2022- season) 2022 Albumin/Creatinine Ratio 03/16/2023 023, 04/28/2021, 02/20/2020, Additional history exists Diabetic Foot Exam 02/28/2024 02/27/2023, 0 03/16/2022, 02/20/2020, Additional history exists HbA1c 03/06/2024 09/04/2023, 02/0 03/2023, 11/21/2022, Additional history exists GFR 09/03/2024 09/04/2023, 2 10/2023, 03/17/2023, Additional history exists Diabetic Eye Exam [...] this encounter Medical Devices Implanted Type Area Grain Sacker Device Identifier Shelf Expiration Date Model / Serial / Lot Filter Navalign Femoral Tulip - [id number] [place]planted:Qty: 1 on 04/21/[place] [facility] [place]: Inferior Vena Cava COOK : [employer] 04/12/2013 [id number] / / [id number] [place] Acetabular Liner +4 [id number] 52mm Od Implanted:Qty: 1 on 04/22/2010 [place] [facility] Right: Hip 03/16/2015 1221-36-152 / / [id number] Stem [place] Por Tpr Stdoff S6 - [id number] Implanted:Qty: 1 on 04/22/2010 [place] [facility] [place] Right: Hip JNJ : [employer] 02/14/2020 [id number] / / [id number] Head Mtl Artic [place] 36mm Pl5 - [id number] Implanted:Qty: 1 on 04/22/2010 [place] [facility] [place] Right: Hip JNJ : [employer] 12/14/2014 [id number] / / [id number] Fem Acet [place] 300 52mm - [id number] Implanted:Qty: 1 on 04/22/2010 [place] [facility] [place] Right: Hip JNJ : [employer] [id number] / / [id number] Screw [place] 3.5x55 204.855 - [id number] Implanted:Qty: 1 on 04/22/2010 [place] [facility] [place] Right: Hip SYNTHES 204.855 / / Screw Canc 4mm 206.065 - [id number] Implanted:Qty: 1 on 04/22/2010 [place] [facility] [place] Right: Hip SYNTHES 206.065 / / Screw Canc [place] 6.5x50mm - [id number] Implanted:Qty: 1 on 04/22/2010 [place] [facility] [place] Right: Hip JNJ : [employer] [id number] / / [id number] Screw Canc [place] 6.5x30mm - [id number] Implanted:Qty: 1 on 04/22/2010 [place] [facility] [place] Right: Hip JNJ : [employer] 02/14/2020 [id number] / / [id number] Screw Selftap 3.5x55 204.855 - [id number] Implanted:Qty: 2 on 04/22/2010 [place] [facility] [place] Right: Hip SYNTHES 204.855 / / Screw Canc 4mm 206.065 - [id number] Implanted:Qty: 1 on 04/22/2010 [place] [facility] [place] Right: Hip SYNTHES 206.065 / / Screw Canc [place] 6.5x15mm - [id number] Implanted:Qty: 1 on 04/22/2010 [place] [facility] [place] Right: Hip JNJ : [employer] 02/14/2020 [id number] / / [id number] Lens 20.5 [id number] - [id number] 039 - [id number] Implanted:Qty: 1 on 10/14/2020 by Lester Livingston DO at OR [facility] Right: Eye DUANE : SURGICAL 2025 [id number] / [id number] 039 / Lens 20.0 [id number] - [id number] 086 - [id number] Implanted:Qty: 1 on 12/09/2020 by Lester Livingston DO at OR [facility] Left: Eye DUANE : SURGICAL 07/13/2025 [id number] / [id number] / documented as of this encounter Advance Directives * Full Code (Latest Code Status on File) Date Activated Date Inactivated Comments 04/22/2010 6:35 PM 04/27/2010 9:02 PM Question Answer Comments Discussion of Advance Directives occurred with: Not Discussed Care Teams Lap Hand Tool Relationship Specialty Start Date End Date Gabriele Dumas MD [address] [place] [address] [place] [address] PCP - General Family Medicine 06/04/21 documented as of this encounter
[2024-03-23] MEDS: OPTIRAY 320 125ml IV ONE ×2 (12:06→18:12)
--- NOTE | 2024-03-23 12:36 | Emergency Department Note ---
Impression & Plan Cerebrovascular accident, Diabetes ED Provider Note NAME: CORAL NDIAYE AGE: 73 SEX: M : 1950 ARRIVES VIA: Walk-In INFORMANT: Patient, ED PROVIDER(S): Glenna Connell MD CHIEF COMPLAINT: Slurred speech, sided weakness HPI: This is a 73-year-old male presenting as a stroke alert. Patient reportedly has been having waxing waning symptoms. Yesterday an episode of somewhat similar to this but self resolved. Patient recently had right toe surgery but a days ago. Today at around 11 AM patient had acute alteration in mental status. He began having slurred speech as per the pipe layer helper. He then had left-sided weakness in his upper lower extremity. He was brought to the ER. Triage nurse note the patient was weak on the left side and called a stroke alert. He is not on blood thinners. ROS: See above HPI for pertinent positives & negatives. A total of 10 systems reviewed and were otherwise negative. PAST MEDICAL HISTORY: See Below PAST SURGICAL HISTORY: See Below FAMILY HISTORY: See Below SOCIAL HISTORY: See Below HOME MEDICATIONS: See Below ALLERGIES: See Below VITALS: See Below PHYSICAL EXAMINATION: General: resting comfortably in no acute distress Head: Normocephalic and atraumatic Eyes: Normal inspection, extraocular muscles intact Ear, nose, throat: Normal external exam Neck: Normal range of motion Respiratory: lungs clear to auscultation bilaterally Cardiovascular: Regular rate/rhythm, no murmur GI: soft, nontender, no guarding or rebound Extremities: nontender, moves all extremities Neuro: The patient awake and alert, appropriately conversive, minimal left upper and lower extremity drift, strength fairly preserved otherwise, NIH 3 Skin: Warm, dry, and intact MEDICAL DECISION MAKING: This is a 73-year-old male presenting as a stroke alert. Patient is a diabetic with recent surgery of the right foot to remove 3 toes. He appears to have improving symptoms based on description from pipe layer helper. Currently not altered or having slurred speech. Minimal facial droop and left upper and lower extremity drift without significant strength deficit. -Will do CT of the head, CTA head and neck to assess for LVO versus stroke versus bleed -CT is read no acute process but did reveal a 1.5 cm hypodensity in the right metformide clear suggesting of age-indeterminate lacunar infarct, otherwise there is an occlusion through the majority of the right ICA with diminutive right AICA having minimal flow, age-indeterminate, high-grade stenosis of the left atrial artery -Upon reevaluation, patient is improving, now having NIH of 2, strength deficits are improving -I discussed with stroke neurologist, Dr. Rodriguez, Stroke neurologist at [facility], who will see the patient in consultation via telestroke cart. Initially recommended TNK but after discussion about recent surgery, would not be candidate be in addition patient has low NIH. -I then had a group discussion with stroke neurologist, neurointerventional list and neurosurgeon at this [facility]. This would not be a candidate due to the age-indeterminate nature as well as low NIH, currently 2. Based on the discussion between the specialist, patient can remain at this hospital with aspirin, Plavix and normal stroke rule out/workup -Patient admitted to [facility] service under Dr. prieto Differential diagnosis: Stroke, encephalitis, TIA, sepsis, infection Independent History obtained from: [employer] Diagnostics interpreted by me: ECG: ECG independently interpreted by me with normal sinus rhythm, rate of 66, normal axis, normal GA, normal QRS, normal QTc, no ST segment elevations consistent with STEMI criteria Cardiac Monitoring: An order was placed for continuous cardiac monitoring. The monitor shows a rate of 66 with sinus rhythm. Critical Care Note: I have personally spent 55 minutes of critical care time in the direct management of this patient. This includes bedside care, interpretation of diagnostic studies, and testing, discussion with consultants, patient, and family members, and other required patient management activities. This 55 minutes is in excess of all separately billable procedures. Past Med/Surg History Problem List (Updated 03/23/24 @ 16:39 by Glenna Connell MD) Cerebrovascular accident (Acute) TIA (transient ischemic attack) PAD (peripheral artery disease) Diabetes (Chronic) Acute gastroenteritis Social History Smoking Status: Never smoker Feels Safe at Home: Yes Allergies Allergies Allergy/AdvReac Type Severity Reaction Status Date / Time No Known Allergies Allergy Unknown NONE Verified 03/23/24 14:08 Home Meds Home Medications Medication Instructions Recorded Confirmed amlodipine 5 mg tablet 5 mg PO QAM 03/23/24 03/23/24 amoxicillin 875 mg-potassium 1 tab PO BID 03/23/24 03/23/24 clavulanate 125 mg tablet aspirin 81 mg tablet,delayed 81 mg PO QAM 03/23/24 03/23/24 release colestipol 1 gram tablet 2 g PO BID 03/23/24 03/23/24 dapagliflozin propanediol 10 mg 10 mg PO QAM 03/23/24 03/23/24 tablet (Farxiga) glimepiride 4 mg tablet 4 mg PO BID 03/23/24 03/23/24 guaifenesin 1,200 mg tablet, 1,200 mg PO BID PRN Congestion 03/23/24 03/23/24 extended release 12 hr (Mucinex) liraglutide 0.6 mg/0.1 mL (18 mg/3 1.8 mg subcut QAM 03/23/24 03/23/24 mL) subcutaneous pen injector lisinopril 40 mg tablet 40 mg PO QAM 03/23/24 03/23/24 loperamide 2 mg tablet (Imodium 2 mg PO Q4H PRN Diarrhea 03/23/24 03/23/24 A-D) metformin 500 mg tablet,extended 2,000 mg PO QAM 03/23/24 03/23/24 release 24 hr oxycodone 5 mg tablet 5 mg PO Q4H Pain 03/23/24 03/23/24 Results & Data (ED) Vital Signs Vital Signs - 24 hr 03/23/24 11:48 03/23/24 12:27 03/23/24 12:30 Temperature 36.7 C Temperature Source Oral Pulse Rate 62 67 66 Pulse Rate from SpO2 Sensor 67 64 Respiratory Rate 18 21 23 Respiratory Effort / Characteristics Non-Labored Spontaneous Respiratory Depth Normal Blood Pressure 135/73 117/67 122/71 Blood Pressure Mean 93 83 88 Pulse Oximetry 98 96 97 Oxygen Delivery Method Room Air Sepsis Recent Fever Within 48 Hours No Sepsis New/Unexplained Change in Mental Status Yes Sepsis Action Taken by Nursing No Action Required 03/23/24 12:45 03/23/24 12:47 03/23/24 13:09 Temperature Temperature Source Pulse Rate 68 67 64 Pulse Rate from SpO2 Sensor 70 Respiratory Rate 20 23 Respiratory Effort / Characteristics Respiratory Depth Blood Pressure 132/85 140/88 Blood Pressure Mean 100 105 Pulse Oximetry 96 Oxygen Delivery Method Sepsis Recent Fever Within 48 Hours Sepsis New/Unexplained Change in Mental Status Sepsis Action Taken by Nursing 03/23/24 13:27 03/23/24 13:30 03/23/24 13:30 Temperature Temperature Source Pulse Rate Pulse Rate from SpO2 Sensor Respiratory Rate Respiratory Effort / Characteristics Respiratory Depth Blood Pressure 139/90 150/71 H 150/71 H Blood Pressure Mean 116 89 89 Pulse Oximetry Oxygen Delivery Method Sepsis Recent Fever Within 48 Hours Sepsis New/Unexplained Change in Mental Status Sepsis Action Taken by Nursing 03/23/24 13:30 03/23/24 13:30 03/23/24 13:33 Temperature Temperature Source Pulse Rate 70 Pulse Rate from SpO2 Sensor 70 Respiratory Rate 23 Respiratory Effort / Characteristics Respiratory Depth Blood Pressure 150/71 H 150/71 H Blood Pressure Mean 89 89 Pulse Oximetry 97 Oxygen Delivery Method Sepsis Recent Fever Within 48 Hours Sepsis New/Unexplained Change in Mental Status Sepsis Action Taken by Nursing 03/23/24 14:01 03/23/24 14:31 03/23/24 15:01 Temperature Temperature Source Pulse Rate 63 65 66 Pulse Rate from SpO2 Sensor Respiratory Rate 17 22 18 Respiratory Effort / Characteristics Respiratory Depth Blood Pressure 151/89 H 140/88 149/82 H Blood Pressure Mean 113 110 117 Pulse Oximetry 95 98 98 Oxygen Delivery Method Sepsis Recent Fever Within 48 Hours Sepsis New/Unexplained Change in Mental Status Sepsis Action Taken by Nursing Laboratory Data 03/23/24 11:57 03/23/24 11:57 Lab Results 03/23/24 03/23/24 03/23/24 Range/Units 11:54 11:57 12:36 WBC 13.50 H (4.8-10.8) K/ul RBC 5.23 (4.70-6.10) M/uL Hgb 14.5 (14.0-18.0) g/dl Hct 44.8 (42.0-52.0) % MCV 85.7 (80.0-100.0) fL MCH 27.7 (25.0-34.0) pg MCHC 32.4 (32.0-36.0) g/dL RDW Std Deviation 44.8 (36.4-46.3) fL RDW Coeff of Raymond 14.4 (11.5-14.5) % Plt Count 288 (130-400) K/uL MPV 12.1 (9.4-12.4) fL Immature Gran % (Auto) 0.6 % Neut % (Auto) 77.8 % Lymph % (Auto) 12.4 % [place] % (Auto) 5.6 % Eos % (Auto) 3.1 % Baso % (Auto) 0.5 % Neut # (Auto) 10.50 H (1.40-6.50) K/uL Lymph # (Auto) 1.68 (1.20-3.40) K/uL [place] # (Auto) 0.75 H (0.11-0.59) K/uL Eos # (Auto) 0.42 (0.00-0.50) K/uL Baso # (Auto) 0.07 (0.00-0.20) K/uL Immature Gran # (Auto) 0.08 (0.01-0.20) K/uL PT 10.2 (9.0-12.0) Seconds INR 0.9 (0.9-1.1) APTT 25 (21-31) Seconds PTT Ratio 0.9 Sodium 140 (136-145) mmol/L Potassium 4.4 (3.5-5.1) mmol/L Chloride 105 (98-107) mmol/L Carbon Dioxide 25 (21-32) mmol/L Anion Gap 10 (3-11) BUN 22 (6-23) mg/dl Creatinine 0.81 (0.6-1.4) mg/dl Est Cr Clr Drug Dosing 92.7 ml/min eGFR 92.52 BUN/Creatinine Ratio 27.2 H (10-20) Glucose 271 H (70-99(Fasting)) mg/dl POC Glucose 254 H (70-99) mg/dl Calcium 9.3 (8.6-10.3) mg/dl Magnesium 1.8 (1.7-2.4) mg/dl Total Bilirubin 1.0 (0.2-1.0) mg/dl AST 16 (13-39) U/L ALT 18 (7-52) U/L Alkaline Phosphatase 74 (34-104) U/L Troponin I High Sens 5.7 (0-20) pg/ml Total Protein 7.0 (6.0-8.3) gm/dl Albumin 4.2 (3.4-5.0) gm/dl Globulin 2.8 (2.5-4.0) gm/dl Albumin/Globulin Ratio 1.5 (0.9-2) Triglycerides 221 H (0-150) mg/dl Cholesterol 140 (0-200) mg/dl LDL Cholesterol, Calc 53 mg/dl VLDL Cholesterol, Calc 44 H (0-30) mg/dl HDL Cholesterol 43 mg/dl Cholesterol/HDL Ratio 3.3 (0-5) Urine Color Yellow Urine Appearance Clear (Clear) Urine pH 5.0 (4.5-7.5) Ur Specific Isabel > 1.045 H (1.000-1.030) Urine Protein Negative (Negative) Urine Glucose (UA) 3+ H (Negative) Urine Ketones Trace H (Negative) Urine Blood Negative (Negative) Urine Nitrite Negative (Negative) Urine Bilirubin Negative (Negative) Urine Urobilinogen Negative (Negative) Ur Leukocyte Esterase Negative (Negative) Treponema pallidum Ab Negative (Negative) Administered Medications Discontinued Medications Aspirin (Aspirin Chew 324 Mg) 324 mg PO NOW STA Stop: 03/23/24 13:20 Last Admin: 03/23/24 13:52 Dose: 324 mg Documented By: SRL Clopidogrel Bisulfate (Clopidogrel Bisulfate 300 Mg Tab) 300 mg PO NOW STA Stop: 03/23/24 13:21 Last Admin: 03/23/24 13:52 Dose: 300 mg Documented By: SRL Ioversol (Optiray 320 125ml) 112 ml IV ONCE ONE Stop: 03/23/24 12:07 Last Admin: 03/23/24 12:06 Dose: 112 ml Documented By: BEN Imaging Data Radiologist's Impression: Head CT 03/23/24 12:03 CT angio head w con, CT head/brain wo con, CT angio neck with con CLINICAL HISTORY: 73 years-old Male with neuro deficit, acute stroke suspected. Acute stroke like symptoms COMPARISON STUDY: None TECHNIQUE: Unenhanced axial CT scan of the brain is performed. Subsequently, following the IV administration of 112 cc of Optiray, CT angiogram of the head and neck was performed from the aortic arch to the skull apex. Images are reviewed in the axial, sagittal, and coronal planes. 3-D MIPS images are created and assessed. IV contrast was administered without complication. All measurements were obtained according to NASCET criteria. A dose lowering technique was utilized adhering to the principles of ALARA. CT DOSE: 1203.21 mGy.cm FINDINGS: CT BRAIN: There is no acute intracranial hemorrhage, midline shift, hydrocephalus, intracranial mass, territorial ischemia or abnormal extra-axial collections. No abnormal intra-axial or extra-axial enhancement. Involutional changes with mild white matter hypodensities suggestive of chronic microvascular ischemic disease. 1.5 cm linear focus of decreased attenuation is noted within the right lentiform, image 15 series 2. Mastoid air cells and middle ear cavities are clear. No calvarial fracture. Paranasal sinuses are clear. CT ANGIOGRAM OF THE HEAD AND NECK: Three-vessel morphology thoracic aorta arch with mild atherosclerosis. Patency of the innominate and imaged subclavian arteries. Mild atherosclerosis of the common carotid arteries without high-grade narrowing. There is moderate atherosclerosis of the carotid bulbs. Less than 50% stenosis of the left ICA. There is occlusion of the majority of the right ICA. Atherosclerotic plaque of the cavernous, clinoid and supraclinoid segments left ICA results in stenosis of up to 50%. The bilateral anterior and left middle cerebral arteries are widely patent. The right MCA is very diminutive with diminished flow compared to the left and demonstrates no definite acute thrombus. Calcified plaque results in high-grade stenosis of the origin of the left vertebral artery. Additional multifocal mild to moderate stenoses noted within the left V4 segment. The right vertebral and basilar arteries appear patent. Multifocal stenoses noted throughout the patent posterior cerebral arteries. No aneurysm or dissection. No abnormal intracranial enhancement. Dural sinuses appear patent. No pneumothorax. Unremarkable soft tissues. No acute fracture. Multinodular thyroid. IMPRESSION: 1. 1.5 cm hypodensity focus of the right lentiform nucleus is suggestive of an age-indeterminate lacunar infarct. 2. No definite acute or subacute territorial infarct, acute intracranial hemorrhage, midline shift or hydrocephalus. 3. Occlusion involves the majority of the right ICA with diminutive right MCA demonstrating minimal flow compared to the left. This is age-indeterminate. 4. High-grade stenosis at the origin of the left vertebral artery with moderate multifocal narrowing of the left V4 segment. ACT 112: Negative or not required by law. The above report was generated using voice recognition software. It may contain grammatical, syntax or spelling errors. Electronically signed by: Rashard Llanes M.D. 03/23/2024 12:36 PM Head CTA 03/23/24 12:03 CT angio head w con, CT head/brain wo con, CT angio neck with con CLINICAL HISTORY: 73 years-old Male with neuro deficit, acute stroke suspected. Acute stroke like symptoms COMPARISON STUDY: None TECHNIQUE: Unenhanced axial CT scan of the brain is performed. Subsequently, following the IV administration of 112 cc of Optiray, CT angiogram of the head and neck was performed from the aortic arch to the skull apex. Images are reviewed in the axial, sagittal, and coronal planes. 3-D MIPS images are created and assessed. IV contrast was administered without complication. All measurements were obtained according to NASCET criteria. A dose lowering technique was utilized adhering to the principles of ALARA. CT DOSE: 1203.21 mGy.cm FINDINGS: CT BRAIN: There is no acute intracranial hemorrhage, midline shift, hydrocephalus, intracranial mass, territorial ischemia or abnormal extra-axial collections. No abnormal intra-axial or extra-axial enhancement. Involutional changes with mild white matter hypodensities suggestive of chronic microvascular ischemic disease. 1.5 cm linear focus of decreased attenuation is noted within the right lentiform, image 15 series 2. Mastoid air cells and middle ear cavities are clear. No calvarial fracture. Paranasal sinuses are clear. CT ANGIOGRAM OF THE HEAD AND NECK: Three-vessel morphology thoracic aorta arch with mild atherosclerosis. Patency of the innominate and imaged subclavian arteries. Mild atherosclerosis of the common carotid arteries without high-grade narrowing. There is moderate atherosclerosis of the carotid bulbs. Less than 50% stenosis of the left ICA. There is occlusion of the majority of the right ICA. Atherosclerotic plaque of the cavernous, clinoid and supraclinoid segments left ICA results in stenosis of up to 50%. The bilateral anterior and left middle cerebral arteries are widely patent. The right MCA is very diminutive with diminished flow compared to the left and demonstrates no definite acute thrombus. Calcified plaque results in high-grade stenosis of the origin of the left vertebral artery. Additional multifocal mild to moderate stenoses noted within the left V4 segment. The right vertebral and basilar arteries appear patent. Multifocal stenoses noted throughout the patent posterior cerebral arteries. No aneurysm or dissection. No abnormal intracranial enhancement. Dural sinuses appear patent. No pneumothorax. Unremarkable soft tissues. No acute fracture. Multinodular thyroid. IMPRESSION: 1. 1.5 cm hypodensity focus of the right lentiform nucleus is suggestive of an age-indeterminate lacunar infarct. 2. No definite acute or subacute territorial infarct, acute intracranial hemorrhage, midline shift or hydrocephalus. 3. Occlusion involves the majority of the right ICA with diminutive right MCA demonstrating minimal flow compared to the left. This is age-indeterminate. 4. High-grade stenosis at the origin of the left vertebral artery with moderate multifocal narrowing of the left V4 segment. ACT 112: Negative or not required by law. The above report was generated using voice recognition software. It may contain grammatical, syntax or spelling errors. Electronically signed by: Rashard Llanes M.D. 03/23/2024 12:36 PM Neck CTA 03/23/24 12:03 CT angio head w con, CT head/brain wo con, CT angio neck with con CLINICAL HISTORY: 73 years-old Male with neuro deficit, acute stroke suspected. Acute stroke like symptoms COMPARISON STUDY: None TECHNIQUE: Unenhanced axial CT scan of the brain is performed. Subsequently, following the IV administration of 112 cc of Optiray, CT angiogram of the head and neck was performed from the aortic arch to the skull apex. Images are reviewed in the axial, sagittal, and coronal planes. 3-D MIPS images are created and assessed. IV contrast was administered without complication. All measurements were obtained according to NASCET criteria. A dose lowering technique was utilized adhering to the principles of ALARA. CT DOSE: 1203.21 mGy.cm FINDINGS: CT BRAIN: There is no acute intracranial hemorrhage, midline shift, hydrocephalus, intracranial mass, territorial ischemia or abnormal extra-axial collections. No abnormal intra-axial or extra-axial enhancement. Involutional changes with mild white matter hypodensities suggestive of chronic microvascular ischemic disease. 1.5 cm linear focus of decreased attenuation is noted within the right lentiform, image 15 series 2. Mastoid air cells and middle ear cavities are clear. No calvarial fracture. Paranasal sinuses are clear. CT ANGIOGRAM OF THE HEAD AND NECK: Three-vessel morphology thoracic aorta arch with mild atherosclerosis. Patency of the innominate and imaged subclavian arteries. Mild atherosclerosis of the common carotid arteries without high-grade narrowing. There is moderate atherosclerosis of the carotid bulbs. Less than 50% stenosis of the left ICA. There is occlusion of the majority of the right ICA. Atherosclerotic plaque of the cavernous, clinoid and supraclinoid segments left ICA results in stenosis of up to 50%. The bilateral anterior and left middle cerebral arteries are widely patent. The right MCA is very diminutive with diminished flow compared to the left and demonstrates no definite acute thrombus. Calcified plaque results in high-grade stenosis of the origin of the left vertebral artery. Additional multifocal mild to moderate stenoses noted within the left V4 segment. The right vertebral and basilar arteries appear patent. Multifocal stenoses noted throughout the patent posterior cerebral arteries. No aneurysm or dissection. No abnormal intracranial enhancement. Dural sinuses appear patent. No pneumothorax. Unremarkable soft tissues. No acute fracture. Multinodular thyroid. IMPRESSION: 1. 1.5 cm hypodensity focus of the right lentiform nucleus is suggestive of an age-indeterminate lacunar infarct. 2. No definite acute or subacute territorial infarct, acute intracranial hemorrhage, midline shift or hydrocephalus. 3. Occlusion involves the majority of the right ICA with diminutive right MCA demonstrating minimal flow compared to the left. This is age-indeterminate. 4. High-grade stenosis at the origin of the left vertebral artery with moderate multifocal narrowing of the left V4 segment. ACT 112: Negative or not required by law. The above report was generated using voice recognition software. It may contain grammatical, syntax or spelling errors. Electronically signed by: Rashard Llanes M.D. 03/23/2024 12:36 PM Discharge Plan Visit Data Chief Complaint: TIA Symptoms Stated Complaint: CONFUSED, SLURRED SPEECH, NUMB LIMBS ED Provider: Glenna Connell Discharge Problem: Cerebrovascular accident, Diabetes Forms Stand Alone Forms: [facility] [place] [facility] Prescriptions Prescriptions: No Action loperamide [Imodium A-D] 2 mg Tablet 2 mg PO Q4H PRN (Reason: Diarrhea) Rx Instructions: administer after each loose stool until symptoms controlled; do not exceed 8 mg per 24 hrs amlodipine 5 mg tablet 5 mg PO QAM aspirin 81 mg Tablet,Delayed Release (Dr/Ec) 81 mg PO QAM glimepiride 4 mg tablet 4 mg PO BID lisinopril 40 mg tablet 40 mg PO QAM metformin 500 mg tablet extended release 24 hr 2,000 mg PO QAM colestipol 1 gram tablet 2 g PO BID amoxicillin-pot clavulanate 875-125 mg tablet 1 tab PO BID Rx Instructions: Start Date 03/17/24 x10 day supply oxycodone 5 mg tablet 5 mg PO Q4H guaifenesin [Mucinex] 1,200 mg Tablet Extended Release 12hr 1,200 mg PO BID PRN (Reason: Congestion) liraglutide 0.6 mg/0.1 mL (18 mg/3 mL) pen injector 1.8 mg subcut QAM dapagliflozin propanediol [Farxiga] 10 mg tablet 10 mg PO QAM Referrals Referrals: Ghassan Inman MD [Outside Practitioners] -
--- NOTE | 2024-03-23 12:38 | CT Scan Report ---
CT angio head w con, CT head/brain wo con, CT angio neck with con CLINICAL HISTORY: 73 years-old Male with neuro deficit, acute stroke suspected. Acute stroke like symptoms COMPARISON STUDY: None TECHNIQUE: Unenhanced axial CT scan of the brain is performed. Subsequently, following the IV adminis tration of 112 cc of Optiray, CT angiogram of the head and neck was performed from the aortic arch to the skull apex. Images are reviewed in the axial, sagittal, and coronal planes. 3-D MIPS images are created and assessed. IV contrast was administered without complication. All measurements were obtain ed according to NASCET criteria. A dose lowering technique was utilized adhering to the principles of ALARA. CT DOSE: 1203.21 mGy.cm FINDINGS: CT BRAIN: There is no acute intracranial hemorrhage, midline shift, hydrocephalus, intracranial mass, territori al ischemia or abnormal extra-axial collections. No abnormal intra-axial or extra-axial enhancement. Involutional changes with mild white matter hypodensities suggestive of chronic microvascular ischem ic disease. 1.5 cm linear focus of decreased attenuation is noted within the right lentiform, image 1 5 series 2. Mastoid air cells and middle ear cavities are clear. No calvarial fracture. Paranasal sin uses are clear. CT ANGIOGRAM OF THE HEAD AND NECK: Three-vessel morphology thoracic aorta arch with mild atherosclerosis. Patency of the innominate and imaged subclavian arteries. Mild atherosclerosis of the common carotid arteries without high-grade na rrowing. There is moderate atherosclerosis of the carotid bulbs. Less than 50% stenosis of the left I CA. There is occlusion of the majority of the right ICA. Atherosclerotic plaque of the cavernous, cli noid and supraclinoid segments left ICA results in stenosis of up to 50%. The bilateral anterior and left middle cerebral arteries are widely patent. The right MCA is very diminutive with diminished reuben w compared to the left and demonstrates no definite acute thrombus. Calcified plaque results in high-grade stenosis of the origin of the left vertebral artery. Additiona l multifocal mild to moderate stenoses noted within the left V4 segment. The right vertebral and basi lar arteries appear patent. Multifocal stenoses noted throughout the patent posterior cerebral arteri es. No aneurysm or dissection. No abnormal intracranial enhancement. Dural sinuses appear patent. No pneumothorax. Unremarkable soft tissues. No acute fracture. Multinodular thyroid. IMPRESSION: 1. 1.5 cm hypodensity focus of the right lentiform nucleus is suggestive of an age-indeterminate lacu oliverio infarct. 2. No definite acute or subacute territorial infarct, acute intracranial hemorrhage, midline shift or hydrocephalus. 3. Occlusion involves the majority of the right ICA with diminutive right MCA demonstrating minimal f low compared to the left. This is age-indeterminate. 4. High-grade stenosis at the origin of the left vertebral artery with moderate multifocal narrowing of the left V4 segment. ACT 112: Negative or not required by law. The above report was generated using voice recognition software. It may contain grammatical, syntax o r spelling errors. Electronically signed by: Rashard Llanes M.D. 03/23/2024 12:36 PM
[2024-03-23] MEDS: CLOPIDOGREL BISULFATE 300 MG TAB PO STA (13:52)
[2024-03-23] MEDS: ASPIRIN CHEW 324 MG PO STA (13:52)
[2024-03-23 13:57] LABS: Basophils # (auto) 0.07 K/uL (0.00-0.20); Basophils % (auto) 0.5 %; Eosinophils # (auto) 0.42 K/uL (0.00-0.50); Eosinophils % (auto) 3.1 %; Hematocrit (blood only) 44.8 % (42.0-52.0); Hemoglobin 14.5 g/dl (14.0-18.0); Immature Granulocytes # (auto) 0.08 K/uL (0.01-0.20); Immature Granulocytes % (auto) 0.6 %; Lymphocytes # (auto) 1.68 K/uL (1.20-3.40); Lymphocytes % (auto) 12.4 %; Mean Corpuscular Hemoglobin 27.7 pg (25.0-34.0); Mean Corpuscular Hgb Conc 32.4 g/dL (32.0-36.0); Mean Corpuscular Volume 85.7 fL (80.0-100.0); Mean Platelet Volume 12.1 fL (9.4-12.4); Monocytes # (auto) 0.75 K/uL (0.11-0.59); Monocytes % (auto) 5.6 %; Neutrophils % (auto) 77.8 %; Platelet Count 288 K/uL (130-400); RDW Coefficient of Variation 14.4 % (11.5-14.5); RDW Standard Deviation 44.8 fL (36.4-46.3); Red Blood Count 5.23 M/uL (4.70-6.10)
[2024-03-23 14:04] LABS: INR 0.9 (0.9-1.1); Partial Thromboplastin Ratio 0.9; Partial Thromboplastin Time 25 Seconds (21-31); Prothrombin Time 10.2 Seconds (9.0-12.0)
[2024-03-23 14:20] LABS: Albumin Level 4.2 gm/dl (3.4-5.0); Calcium 9.3 mg/dl (8.6-10.3); Magnesium 1.8 mg/dl (1.7-2.4); Potassium 4.4 mmol/L (3.5-5.1)
[2024-03-23 14:26] LABS: Albumin Globulin Ratio 1.5 (0.9-2); BUN Creatinine Ratio 27.2 (10-20); Creatinine Clr Calc Pharmacy 92.7 ml/min; Globulin 2.8 gm/dl (2.5-4.0)
[2024-03-23 14:29] LABS: Troponin I High Sensitivity 5.7 pg/ml (0-20)
--- NOTE | 2024-03-23 14:56 | History & Physical Report ---
Date of Service March 23, 2024 Assessment & Plan (1) TIA (transient ischemic attack): Plan: #Dysarthria, confusion, LUE weakness likely 2/2 TIA, resolved #Leukocytosis likely reactive in the setting of above -MRI -neuro consult, stroke neurologist recommends asa/plavix -frequent neuro checks -stat head CT with any neuro changes -secondary risk factor eval, a1c, lipid panel, UA, RPR, vit D -f/u EKG ordered in the ED -PT/OT #DM2, PAD #S/p RLE toe amputation -will continue outpt augmentin -monitor for worsening -ISS when taking PO -IVF #Htn -permissive htn for now NPO until bedside swallow passed SCDs, DAPT History of Present Illness Primary Care Provider: Gabriele Dumas MD 73M pmh htn, DM2, PAD, RLE toe resection last week who presents to the ED with confusion, dysarthria, LUE weakness. Patient is accompanied by friend who assists with history. States that yesterday PM patient presented with the above symptoms for about 15 minutes, but these symptoms self-resolved. Today, symptoms re-presented, were more severe and did not resolve as quickly and as a result patient was brought in. States that once the patient arrived to the ED began to feel better. Total episode lasted about 45 minutes to an hour. In the ED stroke alert was called, and neurology discussed the case with RHIANNA and felecia at [place] due to vascular abnormalities noted on CT/CTA. No intervention was needed and they recommended routine stroke w/u. TNK was also discussed but in the ED symptoms had largely improved and patient also with recent toe amputation, and as such was decided against. On my evaluation patient denies current active symptoms, and friend confirms this. Allergies Allergy/AdvReac Type Severity Reaction Status Date / Time No Known Allergies Allergy Unknown NONE Verified 03/23/24 14:08 Home Medications Medication Instructions Recorded Confirmed Type amlodipine 5 mg tablet 5 mg PO QAM 03/23/24 03/23/24 History amoxicillin 875 mg-potassium 1 tab PO BID 03/23/24 03/23/24 History clavulanate 125 mg tablet aspirin 81 mg tablet,delayed 81 mg PO QAM 03/23/24 03/23/24 History release colestipol 1 gram tablet 2 g PO BID 03/23/24 03/23/24 History dapagliflozin propanediol 10 mg 10 mg PO QAM 03/23/24 03/23/24 History tablet (Farxiga) glimepiride 4 mg tablet 4 mg PO BID 03/23/24 03/23/24 History guaifenesin 1,200 mg tablet, 1,200 mg PO BID PRN Congestion 03/23/24 03/23/24 History extended release 12 hr (Mucinex) liraglutide 0.6 mg/0.1 mL (18 mg/3 1.8 mg subcut QAM 03/23/24 03/23/24 History mL) subcutaneous pen injector lisinopril 40 mg tablet 40 mg PO QAM 03/23/24 03/23/24 History loperamide 2 mg tablet (Imodium 2 mg PO Q4H PRN Diarrhea 03/23/24 03/23/24 History A-D) metformin 500 mg tablet,extended 2,000 mg PO QAM 03/23/24 03/23/24 History release 24 hr oxycodone 5 mg tablet 5 mg PO Q4H Pain 03/23/24 03/23/24 History Past Med/Surg History Problem List (Updated 03/23/24 @ 15:04 by Myao Nicholas MD) TIA (transient ischemic attack) PAD (peripheral artery disease) Diabetes (Chronic) Acute gastroenteritis Social History Smoking Status: Never smoker Feels Safe at Home: Yes Review of Systems Constitutional: as per Subjective / HPI Neurologic: no localized weakness, no generalized weakness, no loss of sensation, no numbness, no paresthesia, no headache(s) and no abnormal speech Physical Exam Constitutional: WD/WN, vitals as above Neurologic: PERRL, EOMI, accommodation nl, no face palsy, no dysarthria normal touch/pain/proprioception, CN's II-XI intact bilaterally and awake; no focal motor deficits Speech / Cognition: normal speech Motor/Sensory: normal movement and no sensory deficit Results & Data Results & Data Vital Signs (Past 12 Hours) Vital Signs Temp Pulse Resp BP Pulse Ox O2 Del Method 03/23/24 13:33 70 23 97 03/23/24 13:30 150/71 H 03/23/24 13:30 150/71 H 03/23/24 13:30 150/71 H 03/23/24 13:30 150/71 H 03/23/24 13:27 139/90 03/23/24 13:09 64 23 140/88 03/23/24 12:47 67 03/23/24 12:45 68 20 132/85 96 03/23/24 12:30 66 23 122/71 97 03/23/24 12:27 67 21 117/67 96 03/23/24 11:48 36.7 C 62 18 135/73 98 Room Air Laboratory Results Abnormal lab results 03/23/24 03/23/24 Range/Units 11:54 11:57 WBC 13.50 H (4.8-10.8) K/ul Neut # (Auto) 10.50 H (1.40-6.50) K/uL Marion # (Auto) 0.75 H (0.11-0.59) K/uL BUN/Creatinine Ratio 27.2 H (10-20) Glucose 271 H (70-99(Fasting)) mg/dl POC Glucose 254 H (70-99) mg/dl Diagnostic Findings Head CT 03/23/24 12:03 CT angio head w con, CT head/brain wo con, CT angio neck with con CLINICAL HISTORY: 73 years-old Male with neuro deficit, acute stroke suspected. Acute stroke like symptoms COMPARISON STUDY: None TECHNIQUE: Unenhanced axial CT scan of the brain is performed. Subsequently, following the IV administration of 112 cc of Optiray, CT angiogram of the head and neck was performed from the aortic arch to the skull apex. Images are reviewed in the axial, sagittal, and coronal planes. 3-D MIPS images are created and assessed. IV contrast was administered without complication. All measurements were obtained according to NASCET criteria. A dose lowering technique was utilized adhering to the principles of ALARA. CT DOSE: 1203.21 mGy.cm FINDINGS: CT BRAIN: There is no acute intracranial hemorrhage, midline shift, hydrocephalus, intracranial mass, territorial ischemia or abnormal extra-axial collections. No abnormal intra-axial or extra-axial enhancement. Involutional changes with mild white matter hypodensities suggestive of chronic microvascular ischemic disease. 1.5 cm linear focus of decreased attenuation is noted within the right lentiform, image 15 series 2. Mastoid air cells and middle ear cavities are clear. No calvarial fracture. Paranasal sinuses are clear. CT ANGIOGRAM OF THE HEAD AND NECK: Three-vessel morphology thoracic aorta arch with mild atherosclerosis. Patency of the innominate and imaged subclavian arteries. Mild atherosclerosis of the common carotid arteries without high-grade narrowing. There is moderate atherosclerosis of the carotid bulbs. Less than 50% stenosis of the left ICA. There is occlusion of the majority of the right ICA. Atherosclerotic plaque of the cavernous, clinoid and supraclinoid segments left ICA results in stenosis of up to 50%. The bilateral anterior and left middle cerebral arteries are widely patent. The right MCA is very diminutive with diminished flow compared to the left and demonstrates no definite acute thrombus. Calcified plaque results in high-grade stenosis of the origin of the left vertebral artery. Additional multifocal mild to moderate stenoses noted within the left V4 segment. The right vertebral and basilar arteries appear patent. Multifocal stenoses noted throughout the patent posterior cerebral arteries. No aneurysm or dissection. No abnormal intracranial enhancement. Dural sinuses appear patent. No pneumothorax. Unremarkable soft tissues. No acute fracture. Multinodular thyroid. IMPRESSION: 1. 1.5 cm hypodensity focus of the right lentiform nucleus is suggestive of an age-indeterminate lacunar infarct. 2. No definite acute or subacute territorial infarct, acute intracranial hemorrhage, midline shift or hydrocephalus. 3. Occlusion involves the majority of the right ICA with diminutive right MCA demonstrating minimal flow compared to the left. This is age-indeterminate. 4. High-grade stenosis at the origin of the left vertebral artery with moderate multifocal narrowing of the left V4 segment. ACT 112: Negative or not required by law. The above report was generated using voice recognition software. It may contain grammatical, syntax or spelling errors. Electronically signed by: Rashard Llanes M.D. 03/23/2024 12:36 PM Head CTA 03/23/24 12:03 CT angio head w con, CT head/brain wo con, CT angio neck with con CLINICAL HISTORY: 73 years-old Male with neuro deficit, acute stroke suspected. Acute stroke like symptoms COMPARISON STUDY: None TECHNIQUE: Unenhanced axial CT scan of the brain is performed. Subsequently, following the IV administration of 112 cc of Optiray, CT angiogram of the head and neck was performed from the aortic arch to the skull apex. Images are reviewed in the axial, sagittal, and coronal planes. 3-D MIPS images are created and assessed. IV contrast was administered without complication. All measurements were obtained according to NASCET criteria. A dose lowering technique was utilized adhering to the principles of ALARA. CT DOSE: 1203.21 mGy.cm FINDINGS: CT BRAIN: There is no acute intracranial hemorrhage, midline shift, hydrocephalus, intracranial mass, territorial ischemia or abnormal extra-axial collections. No abnormal intra-axial or extra-axial enhancement. Involutional changes with mild white matter hypodensities suggestive of chronic microvascular ischemic disease. 1.5 cm linear focus of decreased attenuation is noted within the right lentiform, image 15 series 2. Mastoid air cells and middle ear cavities are clear. No calvarial fracture. Paranasal sinuses are clear. CT ANGIOGRAM OF THE HEAD AND NECK: Three-vessel morphology thoracic aorta arch with mild atherosclerosis. Patency of the innominate and imaged subclavian arteries. Mild atherosclerosis of the co mmon carotid arteries without high-grade narrowing. There is moderate atherosclerosis of the carotid bulbs. Less than 50% stenosis of the left ICA. There is occlusion of the majority of the right ICA. Atherosclerotic plaque of the cavernous, clinoid and supraclinoid segments left ICA results in stenosis of up to 50%. The bilateral anterior and left middle cerebral arteries are widely patent. The right MCA is very diminutive with diminished flow compared to the left and demonstrates no definite acute thrombus. Calcified plaque results in high-grade stenosis of the origin of the left vertebral artery. Additional multifocal mild to moderate stenoses noted within the left V4 segment. The right vertebral and basilar arteries appear patent. Multifocal stenoses noted throughout the patent posterior cerebral arteries. No aneurysm or dissection. No abnormal intracranial enhancement. Dural sinuses appear patent. No pneumothorax. Unremarkable soft tissues. No acute fracture. Multinodular thyr oid. IMPRESSION: 1. 1.5 cm hypodensity focus of the right lentiform nucleus is suggestive of an age-indeterminate lacunar infarct. 2. No definite acute or subacute territorial infarct, acute intracranial hemorrhage, midline shift or hydrocephalus. 3. Occlusion involves the majority of the right ICA with diminutive right MCA demonstrating minimal flow compared to the left. This is age-indeterminate. 4. High-grade stenosis at the origin of the left vertebral artery with moderate multifocal narrowing of the left V4 segment. ACT 112: Negative or not required by law. The above report was generated using voice recognition software. It may contain grammatical, syntax or spelling errors. Electronically signed by: Rashard Llanes M.D. 03/23/2024 12:36 PM Neck CTA 03/23/24 12:03 CT angio head w con, CT head/brain wo con, CT angio neck with con CLINICAL HISTORY: 73 years-old Male with neuro deficit, acute stroke suspected. Acute stroke like symptoms COMPARISON STUDY: None TECHNIQUE: Unenhanced axial CT scan of the brain is performed. Subsequently, following the IV administration of 112 cc of Optiray, CT angiogram of the head a nd neck was performed from the aortic arch to the skull apex. Images are reviewed in the axial, sagittal, and coronal planes. 3-D MIPS images are created and assessed. IV contrast was administered without complication. All measurements were obtained according to NASCET criteria. A dose lowering technique was utilized adhering to the principles of ALARA. CT DOSE: 1203.21 mGy.cm FINDINGS: CT BRAIN: There is no acute intracranial hemorrhage, midline shift, hydrocephalus, intracranial mass, territorial ischemia or abnormal extra-axial collections. No abnormal intra-axial or extra-axial enhancement. Involutional changes with mild white matter hypodensities suggestive of chronic microvascular ischemic disease. 1.5 cm linear focus of decreased attenuation is noted within the right lentifo rm, image 15 series 2. Mastoid air cells and middle ear cavities are clear. No calvarial fracture. Paranasal sinuses are clear. CT ANGIOGRAM OF THE HEAD AND NECK: Three-vessel morphology thoracic aorta arch with mild atherosclerosis. Patency of the innominate and imaged subclavian arteries. Mild atherosclerosis of the common carotid arteries without high-grade narrowing. There is moderate at herosclerosis of the carotid bulbs. Less than 50% stenosis of the left ICA. There is occlusion of the majority of the right ICA. Atherosclerotic plaque of the cavernous, clinoid and supraclinoid segments left ICA results in stenosis of up to 50%. The bilateral anterior and left middle cerebral arteries are widely patent. The right MCA is very diminutive with diminished flow compared to the left and demonstrates no definite acute thrombus. Calcified plaque results in high-grade stenosis of the origin of the left vertebral artery. Additional multifocal mild to moderate stenoses noted within the left V4 segment. The right vertebral and basilar arteries appear patent. Multifocal stenoses noted throughout the patent posterior cerebral arteries. No aneurysm or dissection. No abnormal intracranial enhancement. Dural sinuses appear patent. No pneumothorax. Unremarkable soft tissues. No acute fracture. Multinodular thyroid.
[2024-03-23 15:36] LABS: Chol HDL Ratio 3.3 (0-5)
[2024-03-23 16:01] LABS: Appearance Urine Clear (Clear); Bilirubin Urine Negative (Negative); Blood Urine Negative (Negative); Color Urine Yellow; Glucose Urine UA 3+ (Negative); Ketones Urine Trace (Negative); Leukocyte Esterase Urine Negative (Negative); Nitrite Urine Negative (Negative); Protein Urine Negative (Negative); Specific Gravity Urine > 1.045 (1.000-1.030); Urobilinogen Urine Negative (Negative)
[2024-03-23 17:13] LABS: Adenovirus PCR Not Detected (NotDetected); Bordetella parapertussis PCR Not Detected (NotDetected); Bordetella pertussis PCR Not Detected (NotDetected); Chlamydia pneumoniae PCR Not Detected (NotDetected); Coronavirus 229E PCR Not Detected (NotDetected); Coronavirus CoV-2 (COVID19)PCR Not Detected (NotDetected); Coronavirus HKU1 PCR Not Detected (NotDetected); Coronavirus NL63 PCR Not Detected (NotDetected); Coronavirus OC43PCR Not Detected (NotDetected); Human Metapneumovirus PCR Not Detected (NotDetected); Influenza A PCR Not Detected (NotDetected); Influenza B PCR Not Detected (NotDetected); Mycoplasma pneumoniae PCR Not Detected (NotDetected); Parainfluenza Virus 1 PCR Not Detected (NotDetected); Parainfluenza Virus 2 PCR Not Detected (NotDetected); Parainfluenza Virus 3 PCR Not Detected (NotDetected); Parainfluenza Virus 4 PCR Not Detected (NotDetected); Respiratory Syncytial VirusPCR Not Detected (NotDetected); Rhinovirus/Enterovirus PCR Not Detected (NotDetected)
--- NOTE | 2024-03-23 17:24 | Magnetic Resonance Report ---
EXAM: MR brain wo con CLINICAL HISTORY: TIA. TECHNIQUE: Different MRI pulse sequences were performed in different planes without contrast injection for the brain. Images were sent through PACs for interpretation. COMPARISON: None. FINDINGS: Brain Parenchyma: Right basal ganglia and right parieto-temporal subcortical small areas of diffusion restriction. A few foci of an altered signal are seen involving the bilateral fronto-parietal subcortical white matter, eliciting high T2/FLAIR signal intensities, while inconspicuous on T1 WIS, no perifocal edema or mass effect. no corresponding diffusion restriction with isointense and high ADC denoting chronicity. Bilateral deep white matter periventricular thin sheets of bright T2 and FLAIR signal denote small arterial disease. Bilateral prominent Virchow's Wes spaces of the basal ganglia and centrum semiovale. No shift of midline structures. No intracerebral or extra-axial hematomas or masses. Ventricles and Sulci: Accentuated cortical sulci, Sylvian fissures, and extra-axial CSF spaces are associated with mild symmetrical dilatation of the supra-tentorial ventricular system. Posterior Fossa: The cerebellum and brainstem appear normal without evidence of mass lesions or signal abnormalities. Vessels: Total lost signal void of the petrous, cavernous, and supra clinoid portions of the right ICA, with attenuated right MCA. Orbits and Skull Base: Orbits and skull base structures are normal without evidence of abnormalities. IMPRESSION: 1. Total lost signal void of the petrous, cavernous, and supra clinoid portions of the right ICA, with attenuated right MCA, denoting possible acute occlusion. CT angiography is advised. 2. Right basal ganglia and right parieto-temporal subcortical small areas of acute non hemorrhgic infarction. 3. chronic microvascular ischemic angiopathy. 4. Age-related brain involuational changes. [facility] ER was called at [phone] at 04:08 PM [employer], 03/23/2024, and Isma Ervin informed regarding the presence of critical medical findings in the reports. Electronically signed by Milka Purcell 03-23-2024 5:23 PM
--- NOTE | 2024-03-23 18:14 | Communication Note ---
Date of Service: March 23, 2024 Returned call to transfer center regarding request from inpatient hospitalist to discuss 73yo male presented to ER with complaint of new left hemibody symptoms. Underwent CT and CTA yielding evidence of R ICA occlusion. MRI depicts acute right hemispheric stroke. Fortunately NIHSS reportedly 0 at this time per hospitalist team. Recommend transfer to [facility] ICU for continued close monitoring/continued stroke workup and management at institution where there is available [facility] endovascular services should the need present. Discussed directly with [facility] endovascular team.
--- NOTE | 2024-03-23 18:33 | Communication Note ---
Date of Service: March 23, 2024 MRI result was called to me by radiology as critical showing acute occlusion of the R ICA as well as the R basal ganglia and parieto-temporal subcortical region. Earlier today telestroke consult was done with [facility] including both RHIANNA and neurosurgery which was reported to me by the ED as no intervention required due to recent surgery and low NIHSS at the time of evaluation. No formal note available at this time for review. Due to the size and acuity of the infarct, I called [facility] neurology/neurosurg for second opinion, at which time they recommended transfer to [facility] for ICU level of care and close monitoring in the potential setting of decompensation. I then talked to [facility] ICU who currently has no beds, and [place] was called who continue to state no transfer needed. The patient will be listed for transfer by the transfer center and transferred to [facility] ICU for close monitoring at this time until he can be transferred for HLOC.
[2024-03-23] MEDS ORDERED: LOPERAMIDE HCL 2 MG CAP PO PRN (18:44)
--- NOTE | 2024-03-23 18:52 | CT Scan Report ---
EXAM: CT Angiography Head With Intravenous Contrast INDICATION: Rule out right ICA occlusion. TECHNIQUE: Axial computed tomographic angiography images of the head with intravenous contrast. Sagittal and coronal reformatted images were created and reviewed. This CT exam was performed using one or more of the following dose reduction techniques: automated exposure control, adjustment of the mA and/or kV according to patient size, and/or use of iterative reconstruction technique. MIP reconstructed images were created and reviewed. CONTRAST: 115ml of Optiray 320 was administered intravenously. COMPARISON: MRI the same day FINDINGS: Right internal carotid artery: Right intracranial and visualized cervical internal carotid arteries are occluded. No aneurysm. Right anterior cerebral artery: No abnormality noted. No occlusion or significant stenosis. No aneurysm. Right middle cerebral artery: There is minimal collateral flow in the right MCA through posterior communicators. No aneurysm. Right posterior cerebral artery: No abnormality noted. Right vertebral artery: No significant abnormality noted. Left internal carotid artery: There is moderate calcific plaque intracranial left carotid artery with stenosis of up to 70% in the cavernous segment. Left anterior cerebral artery: No abnormality noted. No occlusion or significant stenosis. No aneurysm. Left middle cerebral artery: No abnormality noted. No occlusion or significant stenosis. No aneurysm. Left posterior cerebral artery: No abnormality noted. No occlusion or significant stenosis. No aneurysm. Left vertebral artery: No significant abnormality noted. Basilar artery: No abnormality noted. No occlusion or significant stenosis. No aneurysm. Other vasculature: Patent dural venous sinuses. Brain and extra-axial spaces: Small nonhemorrhagic infarct noted in the right basal ganglia correlates with the MRI. IMPRESSION: 1. 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 2. There is moderate calcific plaque in the intracranial left internal carotid artery with stenosis of up to 70% in the cavernous segment. 3. Small nonhemorrhagic infarct noted in the right basal ganglia correlates with the MRI. ACT 112: Negative or not required by law. Electronically signed by Rosemarie Cartagena 03-23-2024 6:52 PM
[2024-03-23] MEDS: SODIUM CHLORIDE 0.9% 1,000 ML IV SCH (19:18)
[2024-03-23] MEDS: oxyCODONE HCL IR 5 MG TAB (IMMEDIATE RELEASE) PO SCH (19:29)
[2024-03-23] MEDS ORDERED: PHARMACIST DISCHARGE MED REC CONSULT PRN (19:42)
[2024-03-23] MEDS ORDERED: ACETAMINOPHEN 325 MG TAB PO PRN (19:42)
--- NOTE | 2024-03-23 20:47 | Critical Care Consultation ---
Date of Consultation March 23, 2024 Assessment & Plan (1) Cerebrovascular accident: (2) PAD (peripheral artery disease): (3) Carotid artery disease: (4) Carotid occlusion, right: Plan Reason Critically Ill: CVA Neuro - [facility] ICU: negative RASS GOAL 0 Avoid sedating medications Multimodal pain management Close neurologic checks D/w Dr. Conteh who provided additional recommendations Repeat CTH in AM or sooner if neurologic changes Permissive hypertension SBP < 220mmHg F/U Na, avoid hypotonic fluids HOB flat Stroke order set in place Cardiac - Murmur on exam TTE pending BP goal < 220/120mmHg High dose statin started ASA/Plavix Respiratory - No acute concerns SpO2 > 92% GI - Diarrhea at home Diet: NPO except meds, sips and chips OK SUP: N/A Bowel regimen: Imodium RENAL/LYTES - Target normonatremia Replete electrolytes as indicated No indication for farrar catheter Maintain net even to net negative ENDO - A1c pending BG 140-180 per SCC guidelines ISS if needed while inpatient HEME - ASA/Plavix ID - Augmentin for OM, will need to clarify if patient is taking at home. If not and no clinical sigsn of infection will stop tomorrow. LINES/TUBES/DRAINS - PIV x2 DVT PROPHYLAXIS - Tomorrow DISPOSITION - [facility] ICU pending transfer to T[facility]iary Care facility I have personally spent 40 minutes of critical care time in the direct management of this patient. This is a life/limb threatening event. This includes time spent evaluating patient, direct bedside care, chart review, placing orders, interpretation of diagnostic studies, discussion with consultants, patient, and family members, as well as other required patient management activities. This time is exclusive of all separately billable procedures, and teaching time and separate from and in addition to any other critical care service time. Thank you for allowing us to participate in the care of this patient. Please refer to my attending physician's documentation for any further recommendations. History of Present Illness Reason for Consultation: Stroke Requesting Physician: Cristopher Attending Physician: Mayo Nicholas MD History of Present Illness Mr. Reji Santos is a pleasant 73YOM vasculopath with a history of DMII, PVD, osteomyelitis of R foot s/p amputation of 3 toes (03/15/2024), hypertension, dyslipidemia who presented to [facility] ED from home on the early afternoon 03/23/2024 due to slurred speech, AMS, and LUE weakness. Per report patient had a similar self limiting episode on 03/22/2024. A stroke alert was called on arrival to ED due to LUE weakness. He was quite hypertensive, otherwise hemodynamically stable. CTH showed age-indeterminate lacunar infarct. CTA with occlusion of R ICA which was noted as age indeterminate as well. 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 He received loading dose of ASA and Plavix. [facility] Neurology was consulted who did not recommend TNK given his recent surgery and NIHSS of 2. Per NSGY at [facility] patient not a candidate for intervention based on age-indeterminate nature and low NIHSS. He was admitted to Hospital Medicine. Additional consultation held with Dr. Conteh from [facility] who recommended [place] [facility] for close monitoring and management where endovascular services are available. He is admitted to ICU pending transfer in the setting of currently inclement weather. Patient seen on arrival to ICU 108. He is AAOx3. Pleasant and conversant. He has no current complaints. Tells me his friend noticed his symptoms today and drove him to the hospital. Reji never noticed a change in his speech or arm strength. He does seem to have a stutter which patient tells me is no different than his usual pattern of speech. He tells me he is healing well from toe amputation, no issues with bleeding, fevers, chills, drainage from wound. Noted some recent diarrhea for which he has been taking Imodium at home. Denies headache, nausea, chest pain, dyspnea, abdominal pain, visual disturbances, numbness/paresthesias beyond his usual neuropathy. Allergies Allergy/AdvReac Type Severity Reaction Status Date / Time No Known Allergies Allergy Unknown NONE Verified 03/23/24 14:08 Home Medications Medication Instructions Recorded Confirmed Type amlodipine 5 mg tablet 5 mg PO QAM 03/23/24 03/23/24 History amoxicillin 875 mg-potassium 1 tab PO BID 03/23/24 03/23/24 History clavulanate 125 mg tablet aspirin 81 mg tablet,delayed 81 mg PO QAM 03/23/24 03/23/24 History release colestipol 1 gram tablet 2 g PO BID 03/23/24 03/23/24 History dapagliflozin propanediol 10 mg 10 mg PO QAM 03/23/24 03/23/24 History tablet (Farxiga) glimepiride 4 mg tablet 4 mg PO BID 03/23/24 03/23/24 History guaifenesin 1,200 mg tablet, 1,200 mg PO BID PRN Congestion 03/23/24 03/23/24 History extended release 12 hr (Mucinex) liraglutide 0.6 mg/0.1 mL (18 mg/3 1.8 mg subcut QAM 03/23/24 03/23/24 History mL) subcutaneous pen injector lisinopril 40 mg tablet 40 mg PO QAM 03/23/24 03/23/24 History loperamide 2 mg tablet (Imodium 2 mg PO Q4H PRN Diarrhea 03/23/24 03/23/24 History A-D) metformin 500 mg tablet,extended 2,000 mg PO QAM 03/23/24 03/23/24 History release 24 hr oxycodone 5 mg tablet 5 mg PO Q4H Pain 03/23/24 03/23/24 History Patient History Social History Smoking Status: Never smoker Hx Alcohol Use: No Hx Substance Use: No Preferred Language: Cambodian Communication Ability: Effective Blood Bank Worker Required: No Beliefs That Will Affect Care: None Current Living Situation: Other Current Living Situation Comment: Friend (poa) Other Information That Helps Us Care for You: No Feels Safe at Home: Yes Safety Concerns: Feels Safe At This Time Assistive Devices: Hearing Aid - Bilateral and Walker Review of Systems Review of Systems: All systems reviewed & are unremarkable except as noted in HPI & below Physical Exam Constitutional: WD/WN, vitals as above Eyes: PERRL, conjunctivae normal, anicteric sclerae ENMT: external ear and nose normal, oropharynx normal Neck: trachea midline, no thyromegaly Respiratory: normal respiratory effort, lungs clear to auscultation Cardiovascular: Rate/Rhythm: regular rate and regular rhythm Heart Sounds: + murmur Vessels: + carotid bruit; no JVD Gastrointestinal (Abdomen): normal bowel sounds, soft, nontender, no hepatosplenomegaly Musculoskeletal: Strength 5/5 throughout. R foot amputation present with dressing C/D/I. Skin: no rashes, warm and dry Neurologic: normal touch/pain/proprioception, CN's II-XI intact bilaterally, moves all extremities and awake; no focal motor deficits Speech / Cognition: + abnormal speech Motor/Sensory: no tremor, no pronator drift and no sensory deficit Cranial Nerves: PERRL, normal facial strength, tongue midline, normal hearing, able to rotate head bilaterally, able to elevate shoulders bilaterally and no nystagmus Coordination: normal [id number] test and normal jzcl-wy-[id number] test Psychiatric: A+Ox3, euthymic affect Results & Data Results & Data Vital Signs (Past 12 Hours) Vital Signs Temp Pulse Pulse Resp BP BP BP 03/23/24 19:35 36.5 C 97 H 20 184/83 H 03/23/24 19:00 63 03/23/24 18:37 36.4 C L 61 16 191/80 H 198/90 H 03/23/24 17:20 64 03/23/24 16:09 66 20 164/76 H 03/23/24 15:01 66 18 149/82 H 03/23/24 14:31 65 22 140/88 03/23/24 14:01 63 17 151/89 H 03/23/24 13:33 70 23 03/23/24 13:30 150/71 H 03/23/24 13:30 150/71 H 03/23/24 13:30 150/71 H 03/23/24 13:30 150/71 H 03/23/24 13:27 139/90 03/23/24 13:09 64 23 140/88 03/23/24 12:47 67 03/23/24 12:45 68 20 132/85 03/23/24 12:30 66 23 122/71 03/23/24 12:27 67 21 117/67 03/23/24 11:48 36.7 C 62 18 135/73 Pulse Ox O2 Del Method 03/23/24 19:35 97 Room Air 03/23/24 19:00 03/23/24 18:37 98 Room Air 03/23/24 17:20 03/23/24 16:09 98 03/23/24 15:01 98 03/23/24 14:31 98 03/23/24 14:01 95 03/23/24 13:33 97 03/23/24 13:30 03/23/24 13:30 03/23/24 13:30 03/23/24 13:30 03/23/24 13:27 03/23/24 13:09 03/23/24 12:47 03/23/24 12:45 96 03/23/24 12:30 97 03/23/24 12:27 96 03/23/24 11:48 98 Room Air Laboratory Results Reviewed Diagnostic Findings Reviewed Medications Administered See MAR Coding Level of Care Code 62399 CRITICAL CARE 1ST 30-74M Diagnoses Cerebrovascular accident I63.9 PAD (peripheral artery disease) I73.9 Carotid artery disease I77.9 Carotid occlusion, right I65.21 Time Spent (min) 40
[2024-03-23] MEDS ORDERED: ICU Protocol for HYPERglycemia SCH (21:00)
[2024-03-23] MEDS: CALCIUM CARBONATE 500 MG CHEWABLE TAB PO PRN (21:19)
[2024-03-23] MEDS: AMOXICILLIN/CLAVULANATE 875 MG TAB PO SCH (21:20)
[2024-03-23] MEDS: COLESTIPOL HCL 1 GM TAB PO SCH (21:20)
[2024-03-23] MEDS: ICU Protocol for HYPERglycemia SCH (22:57)
[2024-03-24] MEDS: ACETAMINOPHEN 325 MG TAB PO PRN (00:25)
[2024-03-24 05:02] VITALS: TEMP 97.7
[2024-03-24 05:11] LABS: Basophils # (auto) 0.06 K/uL (0.00-0.20); Basophils % (auto) 0.6 %; Eosinophils # (auto) 0.45 K/uL (0.00-0.50); Eosinophils % (auto) 4.1 %; Hematocrit (blood only) 41.9 % (42.0-52.0); Hemoglobin 13.4 g/dl (14.0-18.0); Immature Granulocytes # (auto) 0.06 K/uL (0.01-0.20); Immature Granulocytes % (auto) 0.6 %; Lymphocytes % (auto) 21.2 %; Mean Corpuscular Volume 84.3 fL (80.0-100.0); Mean Platelet Volume 11.1 fL (9.4-12.4); Monocytes # (auto) 0.78 K/uL (0.11-0.59); Monocytes % (auto) 7.2 %; Neutrophils # (auto) 7.21 K/uL (1.40-6.50); Neutrophils % (auto) 66.3 %; Platelet Count 257 K/uL (130-400); RDW Coefficient of Variation 14.5 % (11.5-14.5); RDW Standard Deviation 43.8 fL (36.4-46.3); Red Blood Count 4.97 M/uL (4.70-6.10); White Blood Count 10.86 K/ul (4.8-10.8)
[2024-03-24 05:24] LABS: BUN Creatinine Ratio 33.3 (10-20); Calcium 8.6 mg/dl (8.6-10.3); Creatinine Clr Calc Pharmacy 121.1 ml/min; Magnesium 1.7 mg/dl (1.7-2.4); Potassium 3.7 mmol/L (3.5-5.1)
--- NOTE | 2024-03-24 06:55 | CT Scan Report ---
EXAM: CT head/brain wo con CLINICAL HISTORY: Follow up CVA. TECHNIQUE: Axial non-contrast CT scan of the brain was performed from the skull base to the high parietal region with coronal and sagittal reformats. One of the following dose reduction techniques were utilized for this exam: Automated exposure control, adjustment of the mA and/or kV according to patient size, use of iterative reconstruction. CTDI:36.7mGy, DLP: 625mGy*cm. COMPARISON: 03/23/2024 CT. FINDINGS: Brain Parenchyma: Faint ill-defined hypodensity noted at the right basal ganglia and to less extent in the right insular cortex corresponding to areas of diffusion restriction on the prior MRI representing acute non hemorrhgic ischemic insult Prominent ventricular system and extra-axial CSF spaces suggest senile changes Faint periventricular hypodensity was noted bilaterally suggesting mild chronic microvascular ischemic change No evidence of acute hemorrhage, or mass effect. Ventricular System: Ventricles are normal in size and configuration. No evidence of hydrocephalus or ventricular enlargement. Subarachnoid Spaces: Normal sulci and cisterns. No evidence of subarachnoid hemorrhage or extra-axial fluid collections. Cerebellum and Brainstem: Normal size and signal. No masses, lesions, or areas of abnormal signal. Orbits: Normal appearance of the globes, optic nerves, and extraocular muscles. No evidence of orbital masses or abnormal signal. Sinuses: Clear paranasal sinuses. No evidence of sinusitis or mucosal thickening. Mastoid Air Cells: Clear mastoid air cells. No evidence of mastoiditis. Skull: Normal skull morphology. IMPRESSION: 1. Redemonstration of right basal ganglia and to less extent in the right insular cortex acute non hemorrhgic ischemic insult. 2. Redemonstration of senile changes with mild chronic microvascular ischemic change. 3. Compared to prior study no significant interval changes. Electronically signed by Milka Purcell 03-24-2024 06:54 AM
[2024-03-24] MEDS: ICU ELECTROLYTE REPLACEMENT PROTOCOL SCH (06:56)
--- NOTE | 2024-03-24 07:43 | Critical Care Progress Note ---
Date of Service March 24, 2024 Assessment & Plan (1) Cerebrovascular accident: (2) PAD (peripheral artery disease): (3) Carotid artery disease: (4) Carotid occlusion, right: Plan Reason Critically Ill: CVA Neuro - CAM ICU: negative RASS GOAL 0 Avoid sedating medications Multimodal pain management Close neurologic checks Permissive hypertension SBP < 220mmHg HOB flat Stroke order set in place Cardiac - TTE pending BP goal < 220/120mmHg High dose statin started ASA/Plavix Respiratory - No acute concerns SpO2 > 92% GI - Diarrhea at home Diet: NPO except meds, sips and chips OK ENDO - BG 140-180 per SCC guidelines ISS if needed while inpatient HEME - ASA/Plavix ID - Augmentin for OM ordered by hospitalist medicine LINES/TUBES/DRAINS - PIV x2 DVT PROPHYLAXIS - SCDs DISPOSITION - Ground transport at approximately 930 Admission and Anticipated Discharge Date Admission Date: March 23, 2024 Subjective No events overnight. Patient remains asymptomatic. Discussed with nursing staff anticipate ground transport at 930. Physical Exam Physical Exam: General: Alert. nontoxic. Skin: Warm, dry, Head: Atraumatic Ears, nose, mouth and throat: airway patent Cardiovascular: Normal peripheral perfusion Respiratory: no respiratory distress Gastrointestinal: Non distended Musculoskeletal: No deformity Results & Data Results & Data Vital Signs (Past 12 Hours) Vital Signs Temp Pulse Resp BP Pulse Ox 03/24/24 05:01 155/72 H 03/24/24 05:01 155/72 H 03/24/24 05:01 155/72 H 03/24/24 05:00 62 15 94 03/24/24 05:00 36.5 C 03/24/24 04:09 61 16 94 03/24/24 04:00 115/78 03/24/24 04:00 36.6 C 03/24/24 03:27 63 18 94 03/24/24 03:00 62 18 97 03/24/24 03:00 131/67 03/24/24 03:00 36.5 C 03/24/24 02:00 36.7 C 03/24/24 02:00 55 L 20 95 03/24/24 02:00 145/85 H 03/24/24 02:00 145/85 H 03/24/24 02:00 145/85 H 03/24/24 01:03 63 18 94 03/24/24 01:00 36.6 C 03/24/24 01:00 155/68 H 03/24/24 01:00 155/68 H 03/24/24 00:42 67 18 97 03/24/24 00:03 66 22 96 03/24/24 00:01 130/65 03/24/24 00:01 130/65 03/24/24 00:00 36.7 C 03/24/24 00:00 63 03/23/24 23:54 66 17 96 03/23/24 23:24 60 16 95 03/23/24 23:00 36.6 C 03/23/24 23:00 159/96 H 03/23/24 22:51 62 18 96 03/23/24 22:03 64 22 96 03/23/24 22:01 143/64 H 03/23/24 22:00 36.7 C 03/23/24 21:51 62 18 95 03/23/24 21:12 67 20 97 03/23/24 21:00 36.5 C 03/23/24 20:06 67 19 96 03/23/24 20:01 198/101 H 03/23/24 20:00 36.7 C Critical Care Results & Data Vital Signs (Past 12 Hours) Vital Signs Temp Pulse Resp BP Pulse Ox 03/24/24 05:01 155/72 H 03/24/24 05:01 155/72 H 03/24/24 05:01 155/72 H 03/24/24 05:00 62 15 94 03/24/24 05:00 36.5 C 03/24/24 04:09 61 16 94 03/24/24 04:00 115/78 03/24/24 04:00 36.6 C 03/24/24 03:27 63 18 94 03/24/24 03:00 62 18 97 03/24/24 03:00 131/67 03/24/24 03:00 36.5 C 03/24/24 02:00 36.7 C 03/24/24 02:00 55 L 20 95 03/24/24 02:00 145/85 H 03/24/24 02:00 145/85 H 03/24/24 02:00 145/85 H 03/24/24 01:03 63 18 94 03/24/24 01:00 36.6 C 03/24/24 01:00 155/68 H 03/24/24 01:00 155/68 H 03/24/24 00:42 67 18 97 03/24/24 00:03 66 22 96 03/24/24 00:01 130/65 03/24/24 00:01 130/65 03/24/24 00:00 36.7 C 03/24/24 00:00 63 03/23/24 23:54 66 17 96 03/23/24 23:24 60 16 95 03/23/24 23:00 36.6 C 03/23/24 23:00 159/96 H 03/23/24 22:51 62 18 96 03/23/24 22:03 64 22 96 03/23/24 22:01 143/64 H 03/23/24 22:00 36.7 C 03/23/24 21:51 62 18 95 03/23/24 21:12 67 20 97 03/23/24 21:00 36.5 C 03/23/24 20:06 67 19 96 03/23/24 20:01 198/101 H 03/23/24 20:00 36.7 C Lab & Micro Results (Past 24 Hours) RBC 4.97 M/uL (4.70-6.10) 03/24/24 WBC 10.86 K/ul (4.8-10.8) H 03/24/24 Hgb 13.4 g/dl (14.0-18.0) L 03/24/24 Hct 41.9 % (42.0-52.0) L 03/24/24 MCV 84.3 fL (80.0-100.0) 03/24/24 MCH 27.0 pg (25.0-34.0) 03/24/24 MCHC 32.0 g/dL (32.0-36.0) 03/24/24 RDW Standard Deviation 43.8 fL (36.4-46.3) 03/24/24 RDW Coefficient of Variation 14.5 % (11.5-14.5) 03/24/24 Plt Count 257 K/uL (130-400) 03/24/24 MPV 11.1 fL (9.4-12.4) 03/24/24 Neutrophils (%) (Auto) 66.3 % 03/24/24 Lymphocytes (%) (Auto) 21.2 % 03/24/24 Monocytes # (Auto) 0.78 K/uL (0.11-0.59) H 03/24/24 Eosinophils # (Auto) 0.45 K/uL (0.00-0.50) 03/24/24 Immature Granulocyte % (Auto) 0.6 % 03/24/24 Neutrophils # (Auto) 7.21 K/uL (1.40-6.50) H 03/24/24 Lymphocytes # (Auto) 2.30 K/uL (1.20-3.40) 03/24/24 Monocytes # (Auto) 0.78 K/uL (0.11-0.59) H 03/24/24 Eosinophils # (Auto) 0.45 K/uL (0.00-0.50) 03/24/24 Basophils # (Auto) 0.06 K/uL (0.00-0.20) 03/24/24 Immature Granulocyte # (Auto) 0.06 K/uL (0.01-0.20) 5 Na 140 mmol/L (136-145) 03/24/24 K 3.7 mmol/L (3.5-5.1) 03/24/24 Cl 108 mmol/L (98-107) H 03/24/24 CO2 25 mmol/L (21-32) 03/24/24 Anion Gap 7 (3-11) 03/24/24 BUN 19 mg/dl (6-23) 03/24/24 Creatinine 0.57 mg/dl (0.6-1.4) L 03/24/24 BUN/Creatinine Ratio 33.3 (10-20) H 03/24/24 Glu 115 mg/dl (70-99(Fasting)) H 03/24/24 Ca 8.6 mg/dl (8.6-10.3) 03/24/24 Phosphorus Level 3.0 mg/dl (2.5-4.9) 03/24/24 Total Bilirubin 1.0 mg/dl (0.2-1.0) 03/23/24 AST 16 U/L (13-39) 03/23/24 ALT 18 U/L (7-52) 03/23/24 Alkaline Phosphatase 74 U/L (34-104) 03/23/24 TP 7.0 gm/dl (6.0-8.3) 03/23/24 Albumin 4.2 gm/dl (3.4-5.0) 03/23/24 Globulin 2.8 gm/dl (2.5-4.0) 03/23/24 Albumin/Globulin Ratio 1.5 (0.9-2) 03/23/24 Mg 1.7 mg/dl (1.7-2.4) 03/24/24 04:37 Calcium Level 8.6 mg/dl (8.6-10.3) 03/24/24 04:37 Prothromb Time International Ratio 0.9 (0.9-1.1) 03/23/24 11:5 7 Diagnostic Findings (Past 24 Hours) Head CT 03/23/24 12:03 CT angio head w con, CT head/brain wo con, CT angio neck with con CLINICAL HISTORY: 73 years-old Male with neuro deficit, acute stroke suspected. Acute stroke like symptoms COMPARISON STUDY: None TECHNIQUE: Unenhanced axial CT scan of the brain is performed. Subsequently, following the IV administration of 112 cc of Optiray, CT angiogram of the head and neck was performed from the aortic arch to the skull apex. Images are reviewed in the axial, sagittal, and coronal planes. 3-D MIPS images are created and assessed. IV contrast was administered without complication. All measurements were obtained according to NASCET criteria. A dose lowering technique was utilized adhering to the principles of ALARA. CT DOSE: 1203.21 mGy.cm FINDINGS: CT BRAIN: There is no acute intracranial hemorrhage, midline shift, hydrocephalus, intracranial mass, territorial ischemia or abnormal extra-axial collections. No abnormal intra-axial or extra-axial enhancement. Involutional changes with mild white matter hypodensities suggestive of chronic microvascular ischemic disease. 1.5 cm linear focus of decreased attenuation is noted within the right lentiform, image 15 series 2. Mastoid air cells and middle ear cavities are clear. No calvarial fracture. Paranasal sinuses are clear. CT ANGIOGRAM OF THE HEAD AND NECK: Three-vessel morphology thoracic aorta arch with mild atherosclerosis. Patency of the innominate and imaged subclavian arteries. Mild atherosclerosis of the common carotid arteries without high-grade narrowing. There is moderate atherosclerosis of the carotid bulbs. Less than 50% stenosis of the left ICA. There is occlusion of the majority of the right ICA. Atherosclerotic plaque of the cavernous, clinoid and supraclinoid segments left ICA results in stenosis of up to 50%. The bilateral anterior and left middle cerebral arteries are widely patent. The right MCA is very diminutive with diminished flow compared to the left and demonstrates no definite acute thrombus. Calcified plaque results in high-grade stenosis of the origin of the left vertebral artery. Additional multifocal mild to moderate stenoses noted within the left V4 segment. The right vertebral and basilar arteries appear patent. Multifocal stenoses noted throughout the patent posterior cerebral arteries. No aneurysm or dissection. No abnormal intracranial enhancement. Dural sinuses appear patent. No pneumothorax. Unremarkable soft tissues. No acute fracture. Multinodular thyroid. IMPRESSION: 1. 1.5 cm hypodensity focus of the right lentiform nucleus is suggestive of an age-indeterminate lacunar infarct. 2. No definite acute or subacute territorial infarct, acute intracranial hemorrhage, midline shift or hydrocephalus. 3. Occlusion involves the majority of the right ICA with diminutive right MCA demonstrating minimal flow compared to the left. This is age-indeterminate. 4. High-grade stenosis at the origin of the left vertebral artery with moderate multifocal narrowing of the left V4 segment. ACT 112: Negative or not required by law. The above report was generated using voice recognition software. It may contain grammatical, syntax or spelling errors. Electronically signed by: Rashard Llanes M.D. 03/23/2024 12:36 PM Head CTA 03/23/24 12:03 CT angio head w con, CT head/brain wo con, CT angio neck with con CLINICAL HISTORY: 73 years-old Male with neuro deficit, acute stroke suspected. Acute stroke like symptoms COMPARISON STUDY: None TECHNIQUE: Unenhanced axial CT scan of the brain is performed. Subsequently, following the IV administration of 112 cc of Optiray, CT angiogram of the head and neck was performed from the aortic arch to the skull apex. Images are reviewed in the axial, sagittal, and coronal planes. 3-D MIPS images are created and assessed. IV contrast was administered without complication. All measureme nts were obtained according to NASCET criteria. A dose lowering technique was utilized adhering to the principles of ALARA. CT DOSE: 1203.21 mGy.cm FINDINGS: CT BRAIN: There is no acute intracranial hemorrhage, midline shift, hydrocephalus, intracranial mass, territorial ischemia or abnormal extra-axial collections. No abnormal intra-axial or extra-axial enhancement. Involutional changes with mild white matter hypodensities suggestive of chronic microvascular ischemic disease. 1.5 cm linear focus of decreased attenuation is noted within the right lentiform, image 15 series 2. Mastoid air cells and middle ear cavities are clear. No calvarial fracture. Paranasal sinuses are clear. CT ANGIOGRAM OF THE HEAD AND NECK: Three-vessel morphology thoracic aorta arch with mild atherosclerosis. Patency of the innominate and imaged subclavian arteries. Mild atherosclerosis of the common carotid arteries without high-grade narrowing. There is moderate atherosclerosis of the carotid bulbs. Less than 50% stenosis of the left ICA. There is occlusion of the majority of the right ICA. Atherosclerotic plaque of the cavernous, clinoid and supraclinoid segments left ICA results in stenosis of up to 50%. The bilateral anterior and left middle cerebral arteries are widely patent. The right MCA is very diminutive with diminished flow compared to the left and demonstrates no definite acute thrombus. Calcified plaque results in high-grade stenosis of the origin of the left vertebral artery. Additional multifocal mild to moderate stenoses noted within the left V4 segment. The right vertebral and basilar arteries appear patent. M ultifocal stenoses noted throughout the patent posterior cerebral arteries. No aneurysm or dissection. No abnormal intracranial enhancement. Dural sinuses appear patent. No pneumothorax. Unremarkable soft tissues. No acute fracture. Multinodular thyroid. IMPRESSION: 1. 1.5 cm hypodensity focus of the right lentiform nucleus is suggestive of an age-indeterminate lacunar infarct. 2. No definite acute or subacute territorial infarct, acute intracranial hemorrhage, midline shift or hydrocephalus. 3. Occlusion involves the majority of the right ICA with diminutive right MCA demonstrating minimal flow compared to the left. This is age-indeterminate. 4. High-grade stenosis at the origin of the left vertebral artery with moderate multifocal narrowing of the left V4 segment. ACT 112: Negative or not required by law. The above report was generated using voice recognition software. It may contain grammatical, syntax or spelling errors. Electronically signed by: Rashard Llanes M.D. 03/23/2024 12:36 PM Neck CTA 03/23/24 12:03 CT angio head w con, CT head/brain wo con, CT angio neck with con CLINICAL HISTORY: 73 years-old Male with neuro deficit, acute stroke suspected. Acute stroke like symptoms COMPARISON STUDY: None TECHNIQUE: Unenhanced axial CT scan of the brain is performed. Subsequently, following the IV administration of 112 cc of Optiray, CT angiogram of the head and neck was performed from the aortic arch to the skull apex. Images are reviewed in the axial, sagittal, and coronal planes. 3-D MIPS images are created and assessed. IV contrast was administered without complication. All measurements were obtained according to NASCET criteria. A dose lowering technique was utilized adhering to the principles of ALARA. CT DOSE: 1203.21 mGy.cm FINDINGS: CT BRAIN: There is no acute intracranial hemorrhage, midline shift, hydrocephalus, intracranial mass, territorial ischemia or abnormal extra-axial collections. No abnormal intra-axial or extra-axial enhancement. Involutional changes with mild white matter hypodensities suggestive of chronic microvascular ischemic disease. 1.5 cm linear focus of decreased attenuation is noted within the right lentiform, image 15 series 2. Mastoid air cells and middle ear cavities are clear. No calvarial fracture. Paranasal sinuses are clear. CT ANGIOGRAM OF THE HEAD AND NECK: Three-vessel morphology thoracic aorta arch with mild atherosclerosis. Patency of the innominate and imaged subclavian arteries. Mild atherosclerosis of the common carotid arteries without high-grade narrowing. There is moderate atherosclerosis of the carotid bulbs. Less than 50% stenosis of the left ICA. There is occlusion of the majority of the right ICA. Atherosclerotic plaque of the cavernous, clinoid and supraclinoid segments left ICA results in stenosis of up to 50%. The bilateral anterior and left middle cerebral arteries are widely patent. The right MCA is very diminutive with diminished flow compared to the left and demonstrates no definite acute thrombus. Calcified plaque results in high-grade stenosis of the origin of the left vertebral artery. Additional multifocal mild to moderate stenoses noted within the left V4 segment. The right vertebral and basilar arteries appear patent. Multifocal stenoses noted throughout the patent posterior cerebral arteries. No aneurysm or dissection. No abnormal intracranial enhancement. Dural sinuses appear patent. No pneumothorax. Unremarkable soft tissues. No acute fracture. Multinodular thyroid. IMPRESSION: 1. 1.5 cm hypodensity focus of the right lentiform nucleus is suggestive of an age-indeterminate lacunar infarct. 2. No definite acute or subacute territorial infarct, acute intracranial hemorrhage, midline shift or hydrocephalus. 3. Occlusion involves the majority of the right ICA with diminutive right MCA demonstrating minimal flow compared to the left. This is age-indeterminate. 4. High-grade stenosis at the origin of the left vertebral artery with moderate multifocal narrowing of the left V4 segment. ACT 112: Negative or not required by law. The above report was generated using voice recognition software. It may contain grammatical, syntax or spelling errors. Electronically signed by: Rashard Llanes M.D. 03/23/2024 12:36 PM Brain MRI 03/23/24 15:08 EXAM: MR brain wo con CLINICAL HISTORY: TIA. TECHNIQUE: Different MRI pulse sequences were performed in different planes without contrast injection for the brain. Images were sent through PACs for interpretation. COMPARISON: None. FINDINGS: Brain Parenchyma: Right basal ganglia and right parieto-temporal subcortical small areas of diffusion restriction. A few foci of an altered signal are seen involving the bilateral fronto-parietal subcortical white matter, eliciting high T2/FLAIR signal intensities, while inconspicuous on T1 WIS, no perifocal edema or mass effect. no corresponding diffusion restriction with isointense and high ADC denoting chronicity. Bilateral deep white matter periventricular thin sheets of bright T2 and FLAIR signal denote small arterial disease. Bilateral prominent Virchow's Wes spaces of the basal ganglia and centrum semiovale. No shift of midline structures. No intracerebral or extra-axial hematomas or masses. Ventricles and Sulci: Accentuated cortical sulci, Sylvian fissures, and extra-axial CSF spaces are associated with mild symmetrical dilatation of the supra-tentorial ventricular system. Posterior Fossa: The cerebellum and brainstem appear normal without evidence of mass lesions or signal abnormalities. Vessels: Total lost signal void of the petrous, cavernous, and supra clinoid portions of the right ICA, with attenuated right MCA. Orbits and Skull Base: Orbits and skull base structures are normal without evidence of abnormalities. IMPRESSION: 1. Total lost signal void of the petrous, cavernous, and supra clinoid portions of the right ICA, with attenuated right MCA, denoting possible acute occlusion. CT angiography is advised. 2. Right basal ganglia and right parieto-temporal subcortical small areas of acute non hemorrhgic infarction. 3. chronic microvascular ischemic angiopathy. 4. Age-related brain involuational changes. [facility] ER was called at [phone] at 04:08 PM RECRUITMENT COORDINATOR, 03/23/2024, and Isma Ervin informed regarding the presence of critical medical findings in the reports. Electronically signed by Milka Purcell 03-23-2024 5:23 PM Head CTA 03/23/24 17:50 EXAM: CT Angiography Head With Intravenous Contrast INDICATION: Rule out right ICA occlusion. TECHNIQUE: Axial computed tomographic angiography images of the head with intravenous contrast. Sagittal and coronal reformatted images were created and reviewed. This CT exam was performed using one or more of the following dose reduction techniques: automated exposure control, adjustment of the mA and/or kV according to patient size, and/or use of iterative reconstruction technique. MIP reconstructed images were created and reviewed. CONTRAST: 115ml of Optiray 320 was administered intravenously. COMPARISON: MRI the same day FINDINGS: Right internal carotid artery: Right intracranial and visualized cervical internal carotid arteries are occluded. No aneurysm. Right anterior cerebral artery: No abnormality noted. No occlusion or significant stenosis. No aneurysm. Right middle cerebral artery: There is minimal collateral flow in the right MCA through posterior communicators. No aneurysm. Right posterior cerebral artery: No abnormality noted. Right vertebral artery: No significant abnormality noted. Left internal carotid artery: There is moderate calcific plaque intracranial left carotid artery with stenosis of up to 70% in the cavernous segment. Left anterior cerebral artery: No abnormality noted. No occlusion or significant stenosis. No aneurysm. Left middle cerebral artery: No abnormality noted. No occlusion or significant stenosis. No aneurysm. Left posterior cerebral artery: No abnormality noted. No occlusion or significant stenosis. No aneurysm. Left vertebral artery: No significant abnormality noted. Basilar artery: No abnormality noted. No occlusion or significant stenosis. No aneurysm. Other vasculature: Patent dural venous sinuses. Brain and extra-axial spaces: Small nonhemorrhagic infarct noted in the right basal ganglia correlates with the MRI. IMPRESSION: 1. 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 2. There is moderate calcific plaque in the intracranial left internal carotid artery with stenosis of up to 70% in the cavernous segment. 3. Small nonhemorrhagic infarct noted in the right basal ganglia correlates with the MRI. ACT 112: Negative or not required by law. Electronically signed by Rosemarie Cartagena 03-23-2024 6:[address] 03/24/24 06:00 EXAM: CT head/brain wo con CLINICAL HISTORY: Follow up CVA. TECHNIQUE: Axial non-contrast CT scan of the brain was performed from the skull base to the high parietal region with coronal and sagittal reformats. One of the following dose reduction techniques were utilized for this exam: Automated exposure control, adjustment of the mA and/or kV according to patient size, use of iterative reconstruction. CTDI:36.7mGy, DLP: 625mGy*cm. COMPARISON: 03/23/2024 CT. FINDINGS: Brain Parenchyma: Faint ill-defined hypodensity noted at the right basal ganglia and to less extent in the right insular cortex corresponding to areas of diffusion restriction on the prior MRI representing acute non hemorrhgic ischemic insult Prominent ventricular system and extra-axial CSF spaces suggest senile changes Faint periventricular hypodensity was noted bilaterally suggesting mild chronic microvascular ischemic change No evidence of acute hemorrhage, or mass effect. Ventricular System: Ventricles are normal in size and configuration. No evidence of hydrocephalus or ventricular enlargement. Subarachnoid Spaces: Normal sulci and cisterns. No evidence of subarachnoid hemorrhage or extra-axial fluid collections. Cerebellum and Brainstem: Normal size and signal. No masses, lesions, or areas of abnormal signal. Orbits: Normal appearance of the globes, optic nerves, and extraocular muscles. No evidence of orbital masses or abnormal signal. Sinuses: Clear paranasal sinuses. No evidence of sinusitis or mucosal thickening. Mastoid Air Cells: Clear mastoid air cells. No evidence of mastoiditis. Skull: Normal skull morphology. IMPRESSION: 1. Redemonstration of right basal ganglia and to less extent in the right insular cortex acute non hemorrhgic ischemic insult. 2. Redemonstration of senile changes with mild chronic microvascular ischemic change. 3. Compared to prior study no significant interval changes. Electronically signed by Milka Purcell 03-24-2024 06:54 AM I & O Totals 24 Hours 03/23/24 03/24/24 03/25/24 06:59 06:59 06:59 Intake Total 395.833 / 395.833 Output Total 1225 / 1225 Balance -829.167 / -829.167 Cumulative 03/23/24 11:39 thru 03/24/24 06:00 Intake Total 395.833 Output Total 1225 Balance -829.167 RT Ventilator Mngmt (Last Documented) Ventilator Ordered Settings Respiratory Rate 15 03/24/24 05:00 Ventilator - PT Measurements Respiratory Rate 15 Coding Level of Care Code 64148 SUB INP/OBS CARE 03/09MIN Diagnoses Cerebrovascular accident I63.9 PAD (peripheral artery disease) I73.9 Carotid artery disease I77.9 Carotid occlusion, right I65.21
[2024-03-24] MEDS: MAGNESIUM SULFATE / D5W 1 GM/100 ML BAG IV SCH (08:08)
[2024-03-24] MEDS: POTASSIUM CHLORIDE CRTAB 20 MEQ TABCR PO SCH (08:08)
[2024-03-24] MEDS: ASPIRIN 81 MG ECTAB PO SCH (08:09)
[2024-03-24] MEDS: guaiFENesin 600 MG TABCR PO PRN (08:09)
[2024-03-24] MEDS: CLOPIDOGREL BISULFATE 75 MG TAB PO SCH (08:21)
[2024-03-24] MEDS: ATORVASTATIN 40 MG TAB PO SCH (08:21)
[2024-03-24 08:55] LABS: Estimated Average Glucose 183 mg/dl
[2024-03-24] MEDS ORDERED: ASPIRIN 81 MG ECTAB PO SCH (09:00)
--- NOTE | 2024-03-24 09:22 | Hospitalist Progress Note ---
Date of Service March 24, 2024 Assessment & Plan (1) TIA (transient ischemic attack): Plan: Acute CVA:POA Left vertebral artery, internal carotid artery stenosis --Brain MRI:Total lost signal void of the petrous, cavernous, and supra clinoid portions of the right ICA, with attenuated right MCA, denoting possible acute occlusion. CT angiography is advised. Right basal ganglia and right parieto- temporal subcortical small areas of acute non hemorrhgic infarction. chronic microvascular ischemic angiopathy. Age-related brain involuational changes. --Head/Neck CTA:1.5 cm hypodensity focus of the right lentiform nucleus is suggestive of an age-indeterminate lacunar infarct. No definite acute or subacute territorial infarct, acute intracranial hemorrhage, midline shift or hydrocephalus. Occlusion involves the majority of the right ICA with diminutive right MCA demonstrating minimal flow compared to the left. This is age- indeterminate. High-grade stenosis at the origin of the left vertebral artery with moderate multifocal narrowing of the left V4 segment. --ECHO: Moderate concentric LVH. EF 65 to 70%. Left ventricle Wall motion normal. Grade 1 diastolic dysfunction. Moderate mitral annular calcification. Interatrial septum is intact with no evidence of ASD. -- LDL 53 HbA1c 8.0 --Continue aspirin, Plavix, Lipitor Appreciate neurology input PT OT, speech eval On recommendations from [facility] neurology, patient will be transferred to [facility] ICU for evaluation by [facility] endovascular services for further management. DM Type II: HbA1c 8.0 Hold oral medications Continue insulin while hospitalized Monitor BGs S/p RLE toe amputation Continue home Augmentin Monitor HTN Continue home medications as able Monitor blood pressure CODE STATUS Full code Disposition [facility] Admission and Anticipated Discharge Date Admission Date: March 23, 2024 Subjective Patient is seen and examined at bedside Mental status seem to be back to baseline Speech slow but much improved as well Patient denies any focal weakness Denies any chest pain, dyspnea, nausea, vomiting, abdominal pain Review of Systems Review of Systems: All systems reviewed & are unremarkable except as noted in Subjective Physical Exam Physical Exam: Physical Exam: Vitals signs as noted above General Appearance:Moderately built and nourished, no apparent distress Head: normocephalic, Atraumatic Eyes: normal inspection, EOMI Neck: supple, Trachea midline Respiratory/Chest: Normal breath sounds, CTA, No accessory muscle use Cardiovascular: S1, S2, No murmur Abdomen/GI:Soft, Non tender, Bowel sounds present Extremities/Musculoskeletal:normal inspection, no edema, R foot in dressing Neurologic/Psych:AAOX3, grossly no focal neurological deficits , speech slow, ? minimal facial drrop Skin: normal color, warm Results & Data Results & Data Vital Signs (Past 12 Hours) Vital Signs Temp Pulse Resp BP Pulse Ox O2 Del Method 03/24/24 08:00 Room Air 03/24/24 08:00 36.5 C 03/24/24 05:01 155/72 H 03/24/24 05:01 155/72 H 03/24/24 05:01 155/72 H 03/24/24 05:00 62 15 94 03/24/24 05:00 36.5 C 03/24/24 04:09 61 16 94 03/24/24 04:00 115/78 03/24/24 04:00 36.6 C 03/24/24 03:27 63 18 94 03/24/24 03:00 62 18 97 03/24/24 03:00 131/67 03/24/24 03:00 36.5 C 03/24/24 02:00 36.7 C 03/24/24 02:00 55 L 20 95 03/24/24 02:00 145/85 H 03/24/24 02:00 145/85 H 03/24/24 02:00 145/85 H 03/24/24 01:03 63 18 94 03/24/24 01:00 36.6 C 03/24/24 01:00 155/68 H 03/24/24 01:00 155/68 H 03/24/24 00:42 67 18 97 03/24/24 00:03 66 22 96 03/24/24 00:01 130/65 03/24/24 00:01 130/65 03/24/24 00:00 36.7 C 03/24/24 00:00 63 03/23/24 23:54 66 17 96 03/23/24 23:24 60 16 95 03/23/24 23:00 36.6 C 03/23/24 23:00 159/96 H 03/23/24 22:51 62 18 96 03/23/24 22:03 64 22 96 03/23/24 22:01 143/64 H 03/23/24 22:00 36.7 C 03/23/24 21:51 62 18 95 Laboratory Results Short CBC 03/23/24 03/24/24 Range/Units 11:57 04:37 WBC 13.50 H 10.86 H (4.8-10.8) K/ul Hgb 14.5 13.4 L (14.0-18.0) g/dl Hct 44.8 41.9 L (42.0-52.0) % Plt Count 288 257 (130-400) K/uL BMP 03/23/24 03/24/24 03/24/24 11:57 00:18 04:37 Sodium 140 139 140 Potassium 4.4 3.7 Chloride 105 108 H Carbon Dioxide 25 25 BUN 22 19 Creatinine 0.81 0.57 L Glucose 271 H 115 H Calcium 9.3 8.6 Liver Function 03/23/24 Range/Units 11:57 Total Bilirubin 1.0 (0.2-1.0) mg/dl AST 16 (13-39) U/L ALT 18 (7-52) U/L Alkaline Phosphatase 74 (34-104) U/L Albumin 4.2 (3.4-5.0) gm/dl Urine 03/23/24 Range/Units 12:36 Urine Color Yellow Urine Appearance Clear (Clear) Urine pH 5.0 (4.5-7.5) Ur Specific [place] > 1.045 H (1.000-1.030) Urine Protein Negative (Negative) Urine Glucose (UA) 3+ H (Negative)
[2024-03-24 10:41] VITALS: O2SAT 95
[2024-03-24] MEDS ORDERED: STROKE PATIENT DISCHARGE STA (11:45)
--- NOTE | 2024-03-24 12:00 | Discharge Summary ---
Date of Service March 24, 2024 Admission HPI Per Admitting Provider 73M pmh htn, DM2, PAD, RLE toe resection last week who presents to the ED with confusion, dysarthria, LUE weakness. Patient is accompanied by friend who assists with history. States that yesterday PM patient presented with the above symptoms for about 15 minutes, but these symptoms self-resolved. Today, symptoms re-presented, were more severe and did not resolve as quickly and as a result patient was brought in. States that once the patient arrived to the ED began to feel better. Total episode lasted about 45 minutes to an hour. In the ED stroke alert was called, and neurology discussed the case with RHIANNA and felecia at [facility] due to vascular abnormalities noted on CT/CTA. No intervention was needed and they recommended routine stroke w/u. TNK was also discussed but in the ED symptoms had largely improved and patient also with recent toe amputation, and as such was decided against. On my evaluation patient denies current active symptoms, and friend confirms this. Admission Exam Per Admitting Provider Constitutional: WD/WN, vitals as above Neurologic: PERRL, EOMI, accommodation nl, no face palsy, no dysarthria normal touch/pain/proprioception, CN's II-XI intact bilaterally and awake; no focal motor deficits Speech / Cognition: normal speech Motor/Sensory: normal movement and no sensory deficit Principal Diagnosis Acute cerebrovascular accident Peripheral artery disease Discharge Data Allergies Allergy/AdvReac Type Severity Reaction Status Date / Time No Known Allergies Allergy Unknown NONE Verified 03/23/24 14:08 Consultations 03/23/24 14:27 ED Decision to Admit Stat 03/23/24 15:08 Consult Neurology Routine 03/23/24 18:39 Consult Monotype Mechanic Routine 03/24/24 08:45 Burn CD for patient Stat Procedures Performed Laboratory Results WBC 10.86 K/ul (4.8-10.8) H 03/24/24 04:37 RBC 4.97 M/uL (4.70-6.10) 03/24/24 04:37 Hgb 13.4 g/dl (14.0-18.0) L 03/24/24 04:37 Hct 41.9 % (42.0-52.0) L 03/24/24 04:37 MCV 84.3 fL (80.0-100.0) 03/24/24 04:37 MCH 27.0 pg (25.0-34.0) 03/24/24 04:37 MCHC 32.0 g/dL (32.0-36.0) 03/24/24 04:37 RDW Std Deviation 43.8 fL (36.4-46.3) 03/24/24 04:37 RDW Coeff of Raymond 14.5 % (11.5-14.5) 03/24/24 04:37 Plt Count 257 K/uL (130-400) 03/24/24 04:37 MPV 11.1 fL (9.4-12.4) 03/24/24 04:37 Immature Gran % (Auto) 0.6 % 03/24/24 04:37 Neut % (Auto) 66.3 % 03/24/24 04:37 Lymph % (Auto) 21.2 % 03/24/24 04:37 Gilchrist % (Auto) 7.2 % 03/24/24 04:37 Eos % (Auto) 4.1 % 03/24/24 04:37 Baso % (Auto) 0.6 % 03/24/24 04:37 Neut # (Auto) 7.21 K/uL (1.40-6.50) H 03/24/24 04:37 Lymph # (Auto) 2.30 K/uL (1.20-3.40) 03/24/24 04:37 Gilchrist # (Auto) 0.78 K/uL (0.11-0.59) H 03/24/24 04:37 Eos # (Auto) 0.45 K/uL (0.00-0.50) 03/24/24 04:37 Baso # (Auto) 0.06 K/uL (0.00-0.20) 03/24/24 04:37 Immature Gran # (Auto) 0.06 K/uL (0.01-0.20) 03/24/24 04:37 PT 10.2 Seconds (9.0-12.0) 03/23/24 11:57 INR 0.9 (0.9-1.1) 03/23/24 11:57 APTT 25 Seconds (21-31) 03/23/24 11:57 PTT Ratio 0.9 03/23/24 11:57 Sodium 140 mmol/L (136-145) 03/24/24 04:37 Potassium 3.7 mmol/L (3.5-5.1) 03/24/24 04:37 Chloride 108 mmol/L (98-107) H 03/24/24 04:37 Carbon Dioxide 25 mmol/L (21-32) 03/24/24 04:37 Anion Gap 7 (3-11) 03/24/24 04:37 BUN 19 mg/dl (6-23) 03/24/24 04:37 Creatinine 0.57 mg/dl (0.6-1.4) L 03/24/24 04:37 Est Cr Clr Drug Dosing 121.1 ml/min 03/24/24 04:37 eGFR 102.88 03/24/24 04:37 BUN/Creatinine Ratio 33.3 (10-20) H 03/24/24 04:37 Glucose 115 mg/dl (70-99(Fasting)) H 03/24/24 04:37 POC Glucose 118 mg/dl (70-99) H 03/23/24 20:47 Estimat Average Glucose 183 mg/dl 03/23/24 11:57 Hemoglobin A1c 8.0 % (4.5-5.6) H 03/23/24 11:57 Calcium 8.6 mg/dl (8.6-10.3) 03/24/24 04:37 Phosphorus 3.0 mg/dl (2.5-4.9) 03/24/24 04:37 Magnesium 1.7 mg/dl (1.7-2.4) 03/24/24 04:37 Total Bilirubin 1.0 mg/dl (0.2-1.0) 03/23/24 11:57 AST 16 U/L (13-39) 03/23/24 11:57 ALT 18 U/L (7-52) 03/23/24 11:57 Alkaline Phosphatase 74 U/L (34-104) 03/23/24 11:57 Troponin I High Sens 5.7 pg/ml (0-20) 03/23/24 11:57 Total Protein 7.0 gm/dl (6.0-8.3) 03/23/24 11:57 Albumin 4.2 gm/dl (3.4-5.0) 03/23/24 11:57 Globulin 2.8 gm/dl (2.5-4.0) 03/23/24 11:57 Albumin/Globulin Ratio 1.5 (0.9-2) 03/23/24 11:57 Triglycerides 221 mg/dl (0-150) H 03/23/24 11:57 Cholesterol 140 mg/dl (0-200) 03/23/24 11:57 LDL Cholesterol, Calc 53 mg/dl 03/23/24 11:57 VLDL Cholesterol, Calc 44 mg/dl (0-30) H 03/23/24 11:57 HDL Cholesterol 43 mg/dl 03/23/24 11:57 Cholesterol/HDL Ratio 3.3 (0-5) 03/23/24 11:57 Urine Color Yellow 03/23/24 12:36 Urine Appearance Clear (Clear) 03/23/24 12:36 Urine pH 5.0 (4.5-7.5) 03/23/24 12:36 Ur Specific [place] > 1.045 (1.000-1.030) H 03/23/24 12:36 Urine Protein Negative (Negative) 03/23/24 12:36 Urine Glucose (UA) 3+ (Negative) H 03/23/24 12:36 Urine Ketones Trace (Negative) H 03/23/24 12:36 Urine Blood Negative (Negative) 03/23/24 12:36 Urine Nitrite Negative (Negative) 03/23/24 12:36 Urine Bilirubin Negative (Negative) 03/23/24 12:36 Urine Urobilinogen Negative (Negative) 03/23/24 12:36 Ur Leukocyte Esterase Negative (Negative) 03/23/24 12:36 Nasal Screen MRSA (PCR) Negative (Negative) 03/23/24 20:25 Treponema pallidum Ab Negative (Negative) 03/23/24 11:57 Adenovirus (PCR) Not Detected (NotDetected) 03/23/24 16:13 B. pertussis DNA (PCR) Not Detected (NotDetected) 03/23/24 16:13 B.parapertussis DNA PCR Not Detected (NotDetected) 03/23/24 16:13 C. pneumoniae DNA (PCR) Not Detected (NotDetected) 03/23/24 16:13 Coronavirus OC43 (PCR) Not Detected (NotDetected) 03/23/24 16:13 Coronavirus HKU1 (PCR) Not Detected (NotDetected) 03/23/24 16:13 Coronavirus 229E (PCR) Not Detected (NotDetected) 03/23/24 16:13 SARS-CoV-2 (PCR) Not Detected (NotDetected) 03/23/24 16:13 Coronavirus NL63 (PCR) Not Detected (NotDetected) 03/23/24 16:13 Human Metapneumovir PCR Not Detected (NotDetected) 03/23/24 16:13 Influenza Type A (PCR) Not Detected (NotDetected) 03/23/24 16:13 Influenza Type B (PCR) Not Detected (NotDetected) 03/23/24 16:13 M. pneumoniae (PCR) Not Detected (NotDetected) 03/23/24 16:13 Parainfluenza 1 (PCR) Not Detected (NotDetected) 03/23/24 16:13 Parainfluenza 2 (PCR) Not Detected (NotDetected) 03/23/24 16:13 Parainfluenza 3 (PCR) Not Detected (NotDetected) 03/23/24 16:13 Parainfluenza 4 (PCR) Not Detected (NotDetected) 03/23/24 16:13 RSV (PCR) Not Detected (NotDetected) 03/23/24 16:13 Entero/Rhino (PCR) Not Detected (NotDetected) 03/23/24 16:13 Blood Type O Positive 03/23/24 11:57 Antibody Screen NEGATIVE 03/23/24 11:57 Impressions Neck CTA 03/23/24 12:03 CT angio head w con, CT head/brain wo con, CT angio neck with con CLINICAL HISTORY: 73 years-old Male with neuro deficit, acute stroke suspected. Acute stroke like symptoms COMPARISON STUDY: None TECHNIQUE: Unenhanced axial CT scan of the brain is performed. Subsequently, following the IV administration of 112 cc of Optiray, CT angiogram of the head and neck was performed from the aortic arch to the skull apex. Images are revie wed in the axial, sagittal, and coronal planes. 3-D MIPS images are created and assessed. IV contrast was administered without complication. All measurements were obtained according to NASCET criteria. A dose lowering technique was utilized adhering to the principles of ALARA. CT DOSE: 1203.21 mGy.cm FINDINGS: CT BRAIN: There is no acute intracranial hemorrhage, midline shift, hydrocephalus, intracranial mass, territorial ischemia or abnormal extra-axial collections. No abnormal intra-axial or extra-axial enhancement. Involutional changes with mild white matter hypodensities suggestive of chronic microvascular ischemic disease. 1.5 cm linear focus of decreased attenuation is noted within the right lentiform, image 15 series 2. Mastoid air cells and middle ear cavities are clear. No calvarial fracture. Paranasal sinuses are clear. CT ANGIOGRAM OF THE HEAD AND NECK: Three-vessel morphology thoracic aorta arch with mild atherosclerosis. Patency of the innominate and imaged subclavian arteries. Mild atherosclerosis of the common carotid arteries without high-grade narrowing. There is moderate atherosclerosis of the carotid bulbs. Less than 50% stenosis of the left ICA. Th ere is occlusion of the majority of the right ICA. Atherosclerotic plaque of the cavernous, clinoid and supraclinoid segments left ICA results in stenosis of up to 50%. The bilateral anterior and left middle cerebral arteries are widely patent. The right MCA is very diminutive with diminished flow compared to the left and demonstrates no definite acute thrombus. Calcified plaque results in high-grade stenosis of the origin of the left vertebral artery. Additional multifocal mild to moderate stenoses noted within the left V4 segment. The right vertebral and basilar arteries appear patent. Mul tifocal stenoses noted throughout the patent posterior cerebral arteries. No aneurysm or dissection. No abnormal intracranial enhancement. Dural sinuses appear patent. No pneumothorax. Unremarkable soft tissues. No acute fracture. Multinodular thyroid. IMPRESSION: 1. 1.5 cm hypodensity focus of the right lentiform nucleus is suggestive of an age-indeterminate lacunar infarct. 2. No definite acute or subacute territorial infarct, acute intracranial hemorrhage, midline shift or hydrocephalus. 3. Occlusion involves the majority of the right ICA with diminutive right MCA demonstrating minimal flow compared to the left. This is age-indeterminate. 4. High-grade stenosis at the origin of the left vertebral artery with moderate multifocal narrowing of the left V4 segment. ACT 112: Negative or not required by law. The above report was generated using voice recognition software. It may contain grammatical, syntax or spelling errors. Electronically signed by: Rashard Llanes M.D. 03/23/2024 12:36 PM Brain MRI 03/23/24 15:08 EXAM: MR brain wo con CLINICAL HISTORY: TIA. TECHNIQUE: Different MRI pulse sequences were performed in different planes without contrast injection for the brain. Images were sent through PACs for interpretation. COMPARISON: None. FINDINGS: Brain Parenchyma: Right basal ganglia and right parieto-temporal subcortical small areas of diffusion restriction. A few foci of an altered signal are seen involving the bilateral fronto-parietal subcortical white matter, eliciting high T2/FLAIR signal intensities, while inconspicuous on T1 WIS, no perifocal edema or mass effect. no corresponding diffusion restriction with isointense and high ADC denoting chronicity. Bilateral deep white matter periventricular thin sheets of bright T2 and FLAIR signal denote small arterial disease. Bilateral prominent Virchow's Wes spaces of the basal ganglia and centrum semiovale. No shift of midline structures. No intracerebral or extra-axial hematomas or masses. Ventricles and Sulci: Accentuated cortical sulci, Sylvian fissures, and extra-axial CSF spaces are associated with mild symmetrical dilatation of the supra-tentorial ventricular system. Posterior Fossa: The cerebellum and brainstem appear normal without evidence of mass lesions or signal abnormalities. Vessels: Total lost signal void of the petrous, cavernous, and supra clinoid portions of the right ICA, with attenuated right MCA. Orbits and Skull Base: Orbits and skull base structures are normal without evidence of abnormalities. IMPRESSION: 1. Total lost signal void of the petrous, cavernous, and supra clinoid portions of the right ICA, with attenuated right MCA, denoting possible acute occlusion. CT angiography is advised. 2. Right basal ganglia and right parieto-temporal subcortical small areas of acute non hemorrhgic infarction. 3. chronic microvascular ischemic angiopathy. 4. Age-related brain involuational changes. [facility] ER was called at [phone] at 04:08 PM ADVERTISING ANALYST, 03/23/2024, and Isma Ervin informed regarding the presence of critical medical findings in the reports. Electronically signed by Milka Purcell 03-23-2024 5:23 PM Head CTA 03/23/24 17:50 EXAM: CT Angiography Head With Intravenous Contrast INDICATION: Rule out right ICA occlusion. TECHNIQUE: Axial computed tomographic angiography images of the head with intravenous contrast. Sagittal and coronal reformatted images were created and reviewed. This CT exam was performed using one or more of the following dose reduction techniques: automated exposure control, adjustment of the mA and/or kV according to patient size, and/or use of iterative reconstruction technique. MIP reconstructed images were created and reviewed. CONTRAST: 115ml of Optiray 320 was administered intravenously. COMPARISON: MRI the same day FINDINGS: Right internal carotid artery: Right intracranial and visualized cervical internal carotid arteries are occluded. No aneurysm. Right anterior cerebral artery: No abnormality noted. No occlusion or significant stenosis. No aneurysm. Right middle cerebral artery: There is minimal collateral flow in the right MCA through posterior communicators. No aneurysm. Right posterior cerebral artery: No abnormality noted. Right vertebral artery: No significant abnormality noted. Left internal carotid artery: There is moderate calcific plaque intracranial left carotid artery with stenosis of up to 70% in the cavernous segment. Left anterior cerebral artery: No abnormality noted. No occlusion or significant stenosis. No aneurysm. Left middle cerebral artery: No abnormality noted. No occlusion or significant stenosis. No aneurysm. Left posterior cerebral artery: No abnormality noted. No occlusion or significant stenosis. No aneurysm. Left vertebral artery: No significant abnormality noted. Basilar artery: No abnormality noted. No occlusion or significant stenosis. No aneurysm. Other vasculature: Patent dural venous sinuses. Brain and extra-axial spaces: Small nonhemorrhagic infarct noted in the right basal ganglia correlates with the MRI. IMPRESSION: 1. 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 2. There is moderate calcific plaque in the intracranial left internal carotid artery with stenosis of up to 70% in the cavernous segment. 3. Small nonhemorrhagic infarct noted in the right basal ganglia correlates with the MRI. ACT 112: Negative or not required by law. Electronically signed by Rosemarie Cartagena 03-23-2024 6:[address] 03/24/24 06:00 EXAM: CT head/brain wo con CLINICAL HISTORY: Follow up CVA. TECHNIQUE: Axial non-contrast CT scan of the brain was performed from the skull base to the high parietal region with coronal and sagittal reformats. One of the following dose reduction techniques were utilized for this exam: Automated exposure control, adjustment of the mA and/or kV according to patient size, use of iterative reconstruction. CTDI:36.7mGy, DLP: 625mGy*cm. COMPARISON: 03/23/2024 CT. FINDINGS: Brain Parenchyma: Faint ill-defined hypodensity noted at the right basal ganglia and to less extent in the right insular cortex corresponding to areas of diffusion restriction on the prior MRI representing acute non hemorrhgic ischemic insult Prominent ventricular system and extra-axial CSF spaces suggest senile changes Faint periventricular hypodensity was noted bilaterally suggesting mild chronic microvascular ischemic change No evidence of acute hemorrhage, or mass effect. Ventricular System: Ventricles are normal in size and configuration. No evidence of hydrocephalus or ventricular enlargement. Subarachnoid Spaces: Normal sulci and cisterns. No evidence of subarachnoid hemorrhage or extra-axial fluid collections. Cerebellum and Brainstem: Normal size and signal. No masses, lesions, or areas of abnormal signal. Orbits: Normal appearance of the globes, optic nerves, and extraocular muscles. No evidence of orbital masses or abnormal signal. Sinuses: Clear paranasal sinuses. No evidence of sinusitis or mucosal thickening. Mastoid Air Cells: Clear mastoid air cells. No evidence of mastoiditis. Skull: Normal skull morphology. IMPRESSION: 1. Redemonstration of right basal ganglia and to less extent in the right insular cortex acute non hemorrhgic ischemic insult. 2. Redemonstration of senile changes with mild chronic microvascular ischemic change. 3. Compared to prior study no significant interval changes. Electronically signed by Milka Purcell 03-24-2024 06:54 AM Ordered Studies 03/23/24 12:03 CT angio head w con Stat CT angio neck with con Stat CT head/brain wo con Stat 03/23/24 15:08 MR brain wo con Routine 03/23/24 17:50 CT angio head w con Stat 03/24/24 06:00 CT head/brain wo con Routine Hospital Course (1) TIA (transient ischemic attack): Acute CVA:POA Left vertebral artery, internal carotid artery stenosis --Brain MRI:Total lost signal void of the petrous, cavernous, and supra clinoid portions of the right ICA, with attenuated right MCA, denoting possible acute occlusion. CT angiography is advised. Right basal ganglia and right parieto-temp oral subcortical small areas of acute non hemorrhgic infarction. chronic microvascular ischemic angiopathy. Age-related brain involuational changes. --Head/Neck CTA:1.5 cm hypodensity focus of the right lentiform nucleus is suggestive of an age-indeterminate lacunar infarct. No definite acute or subacute territorial infarct, acute intracranial hemorrhage, midline shift or hy drocephalus. Occlusion involves the majority of the right ICA with diminutive right MCA demonstrating minimal flow compared to the left. This is age- indeterminate. High-grade stenosis at the origin of the left vertebral artery with moderate multifocal narrowing of the left V4 segment. --ECHO: Moderate concentric LVH. EF 65 to 70%. Left ventricle Wall motion normal. Grade 1 diastolic dysfunction. Moderate mitral annular calcification. Interatrial septum is intact with no evidence of ASD. -- LDL 53 HbA1c 8.0 --Continue aspirin, Plavix, Lipitor Appreciate neurology input PT OT, speech eval On recommendations from [facility] neurology, patient will be transferred to [facility] ICU for evaluation by [facility] endovascular services for further management. DM Type II: HbA1c 8.0 Hold oral medications Continue insulin while hospitalized Monitor BGs S/p RLE toe amputation Continue home Augmentin Monitor HTN Continue home medications as able Monitor blood pressure CODE STATUS Full code Disposition [facility] Total Time Total Time Spent Total Time Spent (In Minutes): 54 minutes Discharge Plan Discharge Items Patient Disposition: Transfer Acute Care Hospital Reason For Visit: TIA Discharge Diagnosis: Acute cerebrovascular accident Peripheral artery disease Activity: Per Instructions section Exercise/Sports: Wait until after follow-up appointment Non-emergency contact: Primary Care Provider and Neurologist Call non-emergency contact if: you have any medication questions, your symptoms worsen, your pain is concerning for you and you have a fever Follow-up/Referrals: Gabriele Dumas MD [Primary Care Provider] - Diet: Carb Consistent or DM2 and Heart Healthy Addtl Attending Provider Instructions: Follow-up with your physician at [facility] for further management Follow-up with your primary care physician upon discharge from the hospital as advised Seek immediate medical attention if your symptoms reoccur or worsen Please take all medications as instructed on discharge list below. Please call if you have any questions or problems. You can reach a [facility] hospitalist on duty at [facility] 24 hours a day by calling [phone] Risk Factors for Stroke: You can reduce your chances of stroke by working with your medical provider to adopt a healthy lifestyle. Some specific ways to lower your chance of stroke are: * If you are a smoker, now is the time to stop smoking cigarettes * If you are diabetic, improve the control of your blood sugars * Avoid excessive amounts of alcohol * Control high blood pressure * Lose weight if you are overweight * Be sure to lead an active lifestyle * Eat a healthy diet low in salt, cholesterol and fat You should know about other risk factors for stroke that you are unable to control. These include: * Age 55 years or older * Male gender * Certain racial groups: , or / * Family History of Stroke, Mini stroke or Heart Attack * Sickle Cell Disease Follow Up: It is important for you to keep your follow up appointments with your medical provider. Who to Call and When: Medical Emergencies: Call 911 immediately if you experience any of the following warning signs and symptoms of Stroke: * Sudden numbness or weakness of the face, arm or leg, especially on one side of the body * Sudden confusion, trouble speaking or understanding * Sudden trouble seeing in one or both eyes * Sudden trouble walking, dizziness, loss of balance or coordination * Sudden severe headache with no cause Do not delay calling 911 if you experience any warning signs or symptoms of a stroke. Delay in seeking medical attention may affect what treatments can be given to you. . Addtl Division Engineer Provider Instructions: Current Inpatient Medications Acetaminophen (Acetaminophen 325 Mg Tab) 650 mg PO Q4H PRN PRN Reason: Pain or Fever Stop: 04/22/24 15:16 Last Admin: 03/24/24 00:25 Dose: 650 mg Amlodipine Besylate (Amlodipine Besylate 5 Mg Tab) 5 mg PO [facility] Stop: 04/24/24 09:59 Amoxicillin/Clavulanate Potassium (Amoxicillin/Clavulanate 875 Mg Tab) 1 tab PO BID [facility]; Protocol Stop: 03/25/24 20:59 Last Admin: 03/24/24 08:09 Dose: 1 tab Aspirin (Aspirin 81 Mg Ectab) 81 mg PO [facility] Stop: 04/23/24 08:59 Last Admin: 03/24/24 08:09 Dose: 81 mg Atorvastatin Calcium (Atorvastatin 40 Mg Tab) 80 mg PO [facility] Stop: 04/23/24 08:59 Last Admin: 03/24/24 08:21 Dose: 80 mg Calcium Carbonate (Calcium Carbonate 500 Mg Chewable Tab) 500 mg PO Q6H PRN PRN Reason: Indigestion Stop: 04/22/24 20:38 Last Admin: 03/23/24 21:19 Dose: 500 mg Clopidogrel Bisulfate (Clopidogrel Bisulfate 75 Mg Tab) 75 mg PO QAM [facility] Stop: 04/23/24 08:59 Last Admin: 03/24/24 08:21 Dose: 75 mg Colestipol HCl (Colestipol Hcl 1 Gm Tab) 2 gm PO BID [facility] Stop: 04/22/24 20:59 Last Admin: 03/24/24 08:09 Dose: 2 gm Guaifenesin (Guaifenesin 600 Mg Tabcr) 1,200 mg PO BID PRN PRN Reason: Congestion Stop: 04/22/24 18:36 Last Admin: 03/24/24 08:09 Dose: 1,200 mg Sodium Chloride (Nss) 1,000 mls @ 75 mls/hr IV .[id number] [facility] Stop: 03/24/24 15:14 Last Admin: 03/24/24 09:36 Dose: 75 mls/hr Magnesium Sulfate/Dextrose (Magnesium Sulfate / D5w) 1 gm in 100 mls @ 50 mls/hr IV Q2H [facility] Stop: 03/24/24 14:44 Last Admin: 03/24/24 11:23 Dose: 50 mls/hr Lisinopril (Lisinopril 40 Mg Tab) 40 mg PO QAM [facility] Stop: 04/24/24 09:59 Loperamide HCl (Loperamide Hcl 2 Mg Cap) 2 mg PO Q4H PRN PRN Reason: Diarrhea Stop: 04/22/24 18:43 Miscellaneous (Icu Protocol For Hyperglycemia) 1 each N/A ACHS [facility] Stop: 03/25/24 20:59 Last Admin: 03/24/24 11:23 Dose: 1 each Miscellaneous (Icu Electrolyte Replacement Protocol) 1 each N/A BID@06,18 [facility]; Protocol Stop: 03/31/24 05:59 Last Admin: 03/24/24 06:56 Dose: 1 each Miscellaneous Information (Pharmacist Discharge Med Rec Consult) 1 each N/A UD PRN PRN Reason: Consult Stop: 04/22/24 19:41 Oxycodone HCl (Oxycodone Hcl Ir 5 Mg Tab (Immediate Release)) 5 mg PO Q4H [facility] Stop: 04/06/24 18:36 Last Admin: 03/23/24 19:29 Dose: Not Given Pending Studies at Discharge: No Stand-Alone Forms: My [facility] Skilled Items Patient informed of condition?: Yes DNR: No Discharge Level of Care: Other Communicable Disease: No Discharge Prognosis: Stable Lines: Peripheral IV Urinary Catheter: No Medications and DC Order Prescriptions: Continued loperamide [Imodium A-D] 2 mg Tablet 2 mg PO Q4H PRN (Reason: Diarrhea) Rx Instructions: administer after each loose stool until symptoms controlled; do not exceed 8 mg per 24 hrs amlodipine 5 mg tablet 5 mg PO QAM aspirin 81 mg Tablet,Delayed Release (Dr/Ec) 81 mg PO QAM glimepiride 4 mg tablet 4 mg PO BID lisinopril 40 mg tablet 40 mg PO QAM metformin 500 mg tablet extended release 24 hr 2,000 mg PO QAM colestipol 1 gram tablet 2 g PO BID amoxicillin-pot clavulanate 875-125 mg tablet 1 tab PO BID Rx Instructions: Start Date 03/17/24 x10 day supply oxycodone 5 mg tablet 5 mg PO Q4H guaifenesin [Mucinex] 1,200 mg Tablet Extended Release 12hr 1,200 mg PO BID PRN (Reason: Congestion) liraglutide 0.6 mg/0.1 mL (18 mg/3 mL) pen injector 1.8 mg subcut QAM dapagliflozin propanediol [Farxiga] 10 mg tablet 10 mg PO QAM Discharge Orders: Discharge Order (Routine); Ordered 03/24/24 Ordered By: Paul Kearney Admission Data Admit Date/Time: 03/23/24 15:22 Attending Provider: Paul Kearney Admit Provider: Mayo Nicholas Primary Care Provider: Gabriele Dumas Other Providers: Mayo Nicholas; Enrrique Conteh; Alexei Swain Other Interventions: Discharge Summary Assessment (RN) Last Done: 03/24/24 11:02
[2024-03-24 14:16] VITALS: BP 169/93; PULSE 64; RESP 21
[2024-03-25] MEDS ORDERED: lisinopril 40 MG TAB PO SCH (10:00)
[2024-03-25] MEDS ORDERED: amLODIPine BESYLATE 5 MG TAB PO SCH (10:00)
[2024-03-25 13:35] LABS: iSTAT Creatinine 0.8 mg/dl (0.6-1.3); iSTAT Hemoglobin 15.3 g/dl (14.0-18.0); iSTAT Ionized Calcium 1.23 mmol/l (1.12-1.32); iSTAT Potassium 4.3 mmol/L (3.3-5.0)
--- NOTE | 2024-03-26 21:34 | Electrocardiogram Report ---
Test Reason : Blood Pressure : */* mmHG Vent. Rate : 66 BPM Atrial Rate : 66 BPM P-R Int : 204 ms QRS Dur : 62 ms QT Int : 404 ms P-R-T Axes : -10 -12 4 degrees QTcB Int : 423 ms Sinus rhythm with Premature atrial complexes Otherwise normal ECG When compared with ECG of 10-Nov-2022 14:25, No significant change was found Confirmed by Wander Mensah ([id number]) on 03/26/2024 9:34:08 PM Referred By: REFERRED SELF Confirmed By: Wander Mensah
== END 2024-03-24 16:36 | disposition short-term general hospital (02) | DRG 66 ==
LOC: ED 11:39 → 2S 15:22 → SUATTDRO 15:22 → 2S 17:39 → 1E 19:54

== ENCOUNTER 2024-08-08 13:42 | Inpatient (IN) ==
--- NOTE | 2024-08-08 14:29 | Emergency Department Note ---
Impression & Plan Gross hematuria Admission ED Provider Note HPI: History obtained from patient and patient's grease maker at the bedside. The patient is a 74-year-old gentleman with complex past medical history including previous CVA, peripheral artery disease, diabetes, recent arterial bypass surgery to the right lower extremity at [facility] on 06/28, discharged to rehab with PICC line receiving Invanz after OR cultures grew staph and Enterococcus (planned end date 08/16/2024), just discharged from [facility] yesterday, presents to the emergency department with his friend and PEPENicho Conwayy at the bedside. Today the patient developed gross hematuria from his Ware catheter, it was also noted that his PICC line seem to be partially extracted from his left upper extremity. On arrival here to the ED the patient appears to be in no acute distress, he is hemodynamically stable, patient denies any abdominal pain, he denies any vomiting. ROS: - Per HPI Differential Diagnosis: Hematuria, urinary tract infection, acute cystitis, pyelonephritis, PICC line issue/encounter for replacement, sepsis, wound infection, amongst other potential pathologies. *Outpatient medications and allergy history reviewed. PE: General: Alert, frail-appearing HEENT: Normocephalic, trachea midline Eyes: Extraocular eye movement is intact, no scleral erythema Pulmonary: Clear to auscultation bilaterally, no wheezing Cardio: Regular rate and rhythm GI: Abdomen is soft to palpation : No suprapubic tenderness, Ware catheter in place with gross hematuria in the Ware bag, there is no blood draining from the urethral meatus MSK:, PICC line partially extracted in the left upper extremity, no evidence of trauma or malformation of the extremities, no edema Skin: Surgical wound to the right groin appears to be healing appropriately with wet-to-dry dressings, there is no purulent drainage from the wound, no surrounding erythema, other surgical wound to the right lower extremity appears to be healing without erythema or drainage, otherwise no evidence of rash Neuro: Alert, no focal deficits Psychiatric: Cooperative INDEPENDENT INTERPRETATIONS: compliance monitor: (As interpreted by myself): - An order was placed for continuous cardiac monitoring - Patient was noted to be in sinus rhythm with a rate of 85 Interventions provided in ED: - IV Invanz Medical Decision Making: IV was established and lab work obtained, patient was placed on compliance monitor. Lab work shows a leukocytosis of 16.9, hemoglobin is stable at 10.4, platelet count is slightly elevated at 479, CMP does not show any evidence of acute kidney injury, urinalysis shows 3+ blood, trace leukocyte esterase, mild pyuria. Will send for culture. Patient's Ware catheter was able to be irrigated/flushed. Only a mild amount of clearing occurred with flushing of the Ware catheter. Patient is noted to be on dual antiplatelet therapy but he is otherwise hemodynamically stable here in the ED. Patient was given his dose of IV Invanz after peripheral catheter was placed by the IV team and PICC line was removed. Patient surgical wounds to the right lower extremity appear to be healing appropriately at this time, overall given his gross hematuria I do feel he would benefit from admission, he is only been home for about 1 day after being discharged from inpatient rehab which I think is probably the appropriate setting for him. Patient and his POA at the bedside were in agreement for admission at this time. Case was discussed with the on-call hospitalist service for [facility], patient was placed for admission to the service of Dr. Antunez. Consultants/Discussions held with other healthcare providers: - Hospitalist, Dr. Antunez Disposition discussion held by myself with: - Patient and patient's POA at the bedside Diagnosis: 1. PICC line dislodgment, acute 2. Leukocytosis, acute 3. 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 Dyslipidemia Embolic stroke involving right middle cerebral artery Osteomyelitis of ankle or foot, right, acute Presence of IVC filter Seizure-like activity Type 2 diabetes mellitus Carotid artery disease Kidney stone Surgical History S/P IVC filter History of thrombectomy S/P debridement multiple 07/25/24 right groin incision 07/02/24, 05/16/24 S/P femoral-tibial bypass S/P tonsillectomy S/P total hip arthroplasty S/P cataract surgery 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 Family History Other Cancer Diabetes Heart disease Social History Smoking Status: Never smoker Hx Alcohol Use: No Hx Substance Use: No Preferred Language: Japanese Communication Ability: Effective Ui Designer Required: No Beliefs That Will Affect Care: None Current Living Situation: Other Current Living Situation Comment: Friend (poa) Feels Safe at Home: Yes Assistive Devices: Hearing Aid - Bilateral and Wheelchair Allergies 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 LAUNDRY DETERGENT AT Allergy Severe SEVERE Uncoded 08/08/24 17:21 [facility] Home Meds Home Medications Medication Instructions Recorded Confirmed amlodipine 5 mg tablet 5 mg PO QAM 03/23/24 08/08/24 aspirin 81 mg tablet,delayed 81 mg PO QAM 03/23/24 08/08/24 release glimepiride 4 mg tablet 4 mg PO BID 03/23/24 08/08/24 liraglutide 0.6 mg/0.1 mL (18 mg/3 1.8 mg subcut QAM 03/23/24 08/08/24 mL) subcutaneous pen injector metformin 500 mg tablet,extended 1,500 mg PO QAM 03/23/24 08/08/24 release 24 hr oxycodone 5 mg tablet 5 mg PO BID PRN Pain, Severe 03/23/24 08/08/24 Phenol Liquid [place] 1 spray mucous membrane Q4H 08/08/24 08/08/24 acetaminophen 325 mg tablet 650 mg PO Q6H PRN PAIN/FEVER 08/08/24 08/08/24 (Tylenol) atorvastatin 40 mg tablet 40 mg PO QAM 08/08/24 08/08/24 bisacodyl 10 mg rectal suppository 10 mg [place] DAILY PRN Constipation 08/08/24 08/08/24 calcium carbonate (Tums E-X) 300 mg PO Q6H PRN Heartburn 08/08/24 08/08/24 clopidogrel 75 mg tablet (Plavix) 75 mg PO QAM 08/08/24 08/08/24 colesevelam 625 mg tablet (WelChol) 625 mg PO BIDM 08/08/24 08/08/24 dibucaine 1 % topical ointment 1 applic topical BID 08/08/24 08/08/24 docusate sodium 100 mg capsule 100 mg PO BID PRN Constipation 08/08/24 08/08/24 doxycycline hyclate 100 mg tablet 100 mg PO BID 08/08/24 08/08/24 empagliflozin 25 mg tablet 25 mg PO QAM 08/08/24 08/08/24 (Jardiance) ertapenem 1 gram solution for 1 g IV DAILY 08/08/24 08/08/24 injection ferrous sulfate 325 mg (65 mg 325 mg PO TIDM 08/08/24 08/08/24 iron) tablet fluconazole 100 mg tablet 100 mg PO DAILY 08/08/24 08/08/24 gabapentin 100 mg capsule 100 mg PO .BID QAM & AFTERNOON 08/08/24 08/08/24 gabapentin 300 mg capsule 600 mg PO HS 08/08/24 08/08/24 guar gum 1 tbsp PO DAILY 08/08/24 08/08/24 heparin, porcine (PF) 5,000 5,000 unit subcut TID 08/08/24 08/08/24 unit/mL injection syringe hydrocortisone acetate 25 mg 25 mg [place] BID PRN Hemorrhoids 08/08/24 08/08/24 rectal suppository (Anusol-HC) insulin lispro 100 unit/mL 1 sliding scale dose subcut 08/08/24 08/08/24 subcutaneous solution USEASDIRECTD levothyroxine 25 mcg tablet 25 mcg PO DAILYBB 08/08/24 08/08/24 lidocaine HCl 2 % topical gel 1 applic topical Q8H PRN APPLY TO 08/08/24 08/08/24 PENIS NEEDED linezolid 600 mg tablet 600 mg PO DIRECTED 08/08/24 08/08/24 melatonin 3 mg tablet 3 mg PO HS 08/08/24 08/08/24 methocarbamol 500 mg tablet 500 mg PO BID 08/08/24 08/08/24 pantoprazole 40 mg tablet,delayed 40 mg PO DAILY 08/08/24 08/08/24 release polyethylene glycol 3350 17 17 g PO QPM 08/08/24 08/08/24 gram/dose oral powder (Miralax) sennosides 8.6 mg tablet (senna) 8.6 mg PO BID 08/08/24 08/08/24 sennosides 8.6 mg-docusate sodium 2 tab-cap PO QDL 08/08/24 08/08/24 50 mg tablet (Senna Plus) silver sulfadiazine 1 % topical 1 applic topical DAILY 08/08/24 08/08/24 cream (Silvadene) sodium chloride 0.9 % (flush) 10 ml IV Q12H 08/08/24 08/08/24 (Normal Saline Flush 0.9 % injection syringe) sodium hypochlorite 0.25 % solution 1 applic topical Q8H 08/08/24 08/08/24 tamsulosin 0.4 mg capsule (Flomax) 0.4 mg PO HS 08/08/24 08/08/24 Results & Data (ED) Vital Signs Vital Signs - 24 hr 08/08/24 13:46 08/08/24 14:13 08/08/24 14:19 Temperature 36.6 C Temperature Source Oral Pulse Rate 89 79 Pulse Rate [Apical] Pulse Rate from SpO2 Sensor Pulse Rhythm Regular Pulse Strength Normal Respiratory Rate 20 Respiratory Effort / Characteristics Non-Labored Spontaneous Respiratory Depth Normal Respiratory Pattern Blood Pressure 113/62 Blood Pressure [Left Arm] Blood Pressure Mean 79 Blood Pressure Mean [Left Arm] Blood Pressure Position Sitting Blood Pressure Position [Left Arm] Pulse Oximetry 95 97 Oxygen Delivery Method Room Air Room Air Sepsis Recent Fever Within 48 Hours No Sepsis New/Unexplained Change in Mental Status N/A Sepsis Action Taken by Nursing No Action Required 08/08/24 18:14 08/08/24 18:37 08/08/24 19:03 Temperature Temperature Source Pulse Rate 74 83 Pulse Rate [Apical] 80 Pulse Rate from SpO2 Sensor 81 Pulse Rhythm Pulse Strength Respiratory Rate 18 12 Respiratory Effort / Characteristics Non-Labored Spontaneous Respiratory Depth Normal Respiratory Pattern Regular Blood Pressure 105/48 L Blood Pressure [Left Arm] 112/78 Blood Pressure Mean 67 Blood Pressure Mean [Left Arm] 89 Blood Pressure Position Blood Pressure Position [Left Arm] Lying Pulse Oximetry 97 99 Oxygen Delivery Method Room Air Sepsis Recent Fever Within 48 Hours Sepsis New/Unexplained Change in Mental Status Sepsis Action Taken by Nursing Laboratory Data 08/08/24 15:53 08/08/24 15:53 Lab Results 08/08/24 Range/Units 15:53 WBC 16.93 H (4.8-10.8) K/ul RBC 3.83 L (4.70-6.10) M/uL Hgb 10.4 L (14.0-18.0) g/dl Hct 34.1 L (42.0-52.0) % MCV 89.0 (80.0-100.0) fL MCH 27.2 (25.0-34.0) pg MCHC 30.5 L (32.0-36.0) g/dL RDW Std Deviation 53.2 H (36.4-46.3) fL RDW Coeff of Raymond 16.4 H (11.5-14.5) % Plt Count 479 H (130-400) K/uL MPV 10.2 (9.4-12.4) fL Immature Gran % (Auto) 0.6 % Neut % (Auto) 83.6 % Lymph % (Auto) 8.9 % [place] % (Auto) 5.3 % Eos % (Auto) 1.3 % Baso % (Auto) 0.3 % Neut # (Auto) 14.15 H (1.40-6.50) K/uL Lymph # (Auto) 1.51 (1.20-3.40) K/uL [place] # (Auto) 0.90 H (0.11-0.59) K/uL Eos # (Auto) 0.22 (0.00-0.50) K/uL Baso # (Auto) 0.05 (0.00-0.20) K/uL Immature Gran # (Auto) 0.10 (0.01-0.20) K/uL PT 10.2 (9.0-12.0) Seconds INR 0.9 (0.9-1.1) Sodium 141 (136-145) mmol/L Potassium 4.6 (3.5-5.1) mmol/L Chloride 107 (98-107) mmol/L Carbon Dioxide 27 (21-32) mmol/L Anion Gap 7 (3-11) BUN 28 H (6-23) mg/dl Creatinine 0.63 (0.6-1.4) mg/dl Est Cr Clr Drug Dosing Not Reportable eGFR 99.20 BUN/Creatinine Ratio 44.4 H (10-20) Glucose 147 H (70-99(Fasting)) mg/dl Calcium 9.3 (8.6-10.3) mg/dl Total Bilirubin 0.5 (0.2-1.0) mg/dl AST 8 L (13-39) U/L ALT 10 (7-52) U/L Alkaline Phosphatase 88 (34-104) U/L Total Protein 6.4 (6.0-8.3) gm/dl Albumin 3.6 (3.4-5.0) gm/dl Globulin 2.8 (2.5-4.0) gm/dl Albumin/Globulin Ratio 1.3 (0.9-2) Administered Medications Discontinued Medications Sodium Chloride (Nss) 500 mls @ 999 mls/hr IV .Q31M ONE Stop: 08/08/24 14:49 Last Infusion: 08/08/24 16:56 Dose: Infused Documented By: Admin: 08/08/24 15:56 Dose: 999 mls/hr Documented By: NEWTON Ertapenem (Invanz 1000mg) 1,000 mg in 10 mls @ 2 mls/min IV NOW STA Stop: 08/08/24 17:11 Last Admin: 08/08/24 17:40 Dose: 2 mls/min Documented By: FRAN Morphine Sulfate (Morphine Sulfate 2 Mg/Ml Carp) 2 mg IV NOW STA Stop: 08/08/24 19:12 Last Admin: 08/08/24 19:18 Dose: 2 mg Documented By: ERM Discharge Plan Visit Data Chief Complaint: Line Placement Stated Complaint: PICC LINE,PAIN & BLOOD IN URINE ED Provider: Jasiel Clayton Discharge Problem: Gross hematuria Patient Disposition: Admitted As Inpatient Condition: Fair
[2024-08-08] MEDS: SODIUM CHLORIDE 0.9% 500 ML IV ONE (15:56)
[2024-08-08 16:13] LABS: Hematocrit (blood only) 34.1 % (42.0-52.0); Hemoglobin 10.4 g/dl (14.0-18.0); Immature Granulocytes # (auto) 0.10 K/uL (0.01-0.20); Immature Granulocytes % (auto) 0.6 %; Mean Corpuscular Hemoglobin 27.2 pg (25.0-34.0); Mean Corpuscular Volume 89.0 fL (80.0-100.0); Platelet Count 479 K/uL (130-400); RDW Standard Deviation 53.2 fL (36.4-46.3); Red Blood Count 3.83 M/uL (4.70-6.10); White Blood Count 16.93 K/ul (4.8-10.8)
[2024-08-08 16:30] LABS: Alanine Aminotransferase 10 U/L (7-52); Albumin Globulin Ratio 1.3 (0.9-2); Alkaline Phosphatase 88 U/L (34-104); Anion Gap 7 (3-11); Bilirubin,Total 0.5 mg/dl (0.2-1.0); Blood Urea Nitrogen 28 mg/dl (6-23); Calcium 9.3 mg/dl (8.6-10.3); Carbon Dioxide 27 mmol/L (21-32); Chloride 107 mmol/L (98-107); Globulin 2.8 gm/dl (2.5-4.0); Glucose 147 mg/dl (70-99(Fasting)); Potassium 4.6 mmol/L (3.5-5.1); Sodium 141 mmol/L (136-145); Total Protein 6.4 gm/dl (6.0-8.3)
[2024-08-08 16:42] LABS: INR 0.9 (0.9-1.1); Prothrombin Time 10.2 Seconds (9.0-12.0)
[2024-08-08] MEDS: ERTAPENEM 1000MG 1,000 MG/10 ML SYR IV STA (17:40)
--- NOTE | 2024-08-08 17:43 | History & Physical Report ---
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 Positive culture findings in wound PICC line dislodgement S/P right groin debridement for superficial incisional dehiscence and LLE angiogram for PVD/left great toe gangrene on 07/25/[address] Ross - on 6 weeks of ertapenem after OR cultures grew staph and enterococcus PICC removed and US guided PIV placed in ED Continue IV ertapenem 1g daily until end date of 08/16/2024 Also was prescribed on 08/06/2024: fluconazole x3 days (completed), linezolid x4 days (ordered one more day), doxycycline x10 days (ordered until 08/16) Leukocytosis of 16K, patient afebrile, vitals stable - does not meet criteria for sepsis at this time Follow blood cultures Obtain urine culture if possible Gross hematuria Hgb stable around 10 (baseline is around 9 per records) Monitor H&H q6hr Obtain UA if possible Maintain farrar catheter until Urology evals Pyridium scheduled x2 days for significant dysuria Urology consult: appreciate recs Sacral wound WOCN consult Turn and reposition q2hr Pain control with tylenol and morphine PRN PAD S/P right groin debridement for superficial incisional dehiscence and LLE angiogram for PVD/left great toe gangrene on 07/25/[address] Ross Continue baby aspirin and Plavix daily for vasculopathy Heel suspension boots WOUND CARE per vascular surgery: -Wash right foot daily, no soaking/submersion -Dankins soaked gauze packing amp site & open groin site, cover w/ DSD and light Kerlix wrap of right foot -Heal protector for right foot -Continue platform shoe -[place] left great toe w/ betadine Type 2 diabetes On Jardiance, glimepiride, liraglutide, metformin at home - hold while inpt On SSI at home - continue while inpt BSG ACHS Glycemic pharmacy consult Hypertension Continue amlodipine Hyperlipidemia Continue atorvastatin and colesevelam Hypothyroidism Continue levothyroxine GERD Continue pantoprazole BPH Continue tamsulosin DVT Prophylaxis: SQ lovenox Code Status: FULL CODE - As per discussion at bedside with the patient. PCP: Gabriele Dumas MD Disposition: admit to tele; OT eval; consider HH versus rehab versus SNF once medically stable as patient is very complex and caregiver is overwhelmed caring for him Patient seen in collaboration with Dr Antunez. Please see addendum. I spent a total of 75 minutes coordinating, documenting and providing care for this patient excluding time spent in the performance of separately billed services or time spent by another provider/QHP. 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 Patient was recently admitted and readmitted to [facility] for vascular surgery with rehab stays as detailed below. Patient is with his POA and caregiver, Seng. Seng notes that he noticed his PICC line seemed to be coming out this morning. He also noticed bloody urine in his farrar catheter. Seng states that farrar catheter was placed approximately 6 days ago at [facility]. Patient and Seng deny any trauma or movements that would have caused tension on PICC line or farrar, however, patient is wheelchair bound and Seng has to lift patient in and out of his wheelchair by himself. Patient was seen by Home Health today who performed all of his post op dressing changes. Patient reports burning when he urinates at the tip of his penis as well as a bed sore on his sacrum that has been bothering him for about 2 months. He denies fevers, chills, chest pain, SOB, abdominal pain, flank pain, N/V/D. Timeline of previous hospitalizations: -Admitted 06/28-07/05/24 to [facility] for right common femoral to PT bypass with non- reversed GSV on 06/28, required pressors post-op so sent to ICU. That evening, developed stroke-like symptoms, scans showed old infarcts. Per neurology, high suspicion for stroke recrudescence symptoms improved. On 07/02, underwent right TMA wound debridement, cultures grew staph and enterococcus. Seen by ID who recommended ertapenem for 6 wks so PICC line placed. Discharged to [facility] for rehab on 07/05. -Seen by urology inpatient 07/04/24 evaluation of urinary retention s/p initial vascular procedure. Subsequently seen 07/25/24 for ongoing issues with [place] including leakage of urine around the catheter and intermittent gross hematuria. Urology placed 22 Fr hematuria catheter and irrigated with 1L of NS w/ return of 50 cc old clot. Was to f/u outpatient for cystoscopy and CT urogram. -Readmitted 07/25-07/27/24 for superficial dehiscence of right femoral incision after bypass, left toe gangrene for which pt underwent right groin debridement and nonselective LLE angiogram. Discharged to [facility] on 07/27 for continued rehab. Due to finish ertapenem 08/16/24. -Discharged from [facility] on 08/07/24. Saw vascular surgery for f/u yesterday who recommended continue DAPT for vasculopathy, Lipitor 40 mg for dyslipidemia. For wound care, wash right foot daily but no soaking or submersion; [place]ank[place] soaked guaze packing amp site and open groin site, cover with DSD and light Kerlix wrap of right foot. Needs heel protector for right foot; paint left great toe with betadine. 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 LAUNDRY DETERGENT AT Allergy Severe SEVERE Uncoded 08/08/24 17:21 [facility] Home Medications Medication Instructions Recorded Confirmed Type amlodipine 5 mg tablet 5 mg PO QAM 03/23/24 08/08/24 History aspirin 81 mg tablet,delayed 81 mg PO QAM 03/23/24 08/08/24 History release glimepiride 4 mg tablet 4 mg PO BID 03/23/24 08/08/24 History liraglutide 0.6 mg/0.1 mL (18 mg/3 1.8 mg subcut QAM 03/23/24 08/08/24 History mL) subcutaneous pen injector metformin 500 mg tablet,extended 1,500 mg PO QAM 03/23/24 08/08/24 History release 24 hr oxycodone 5 mg tablet 5 mg PO BID PRN Pain, Severe 03/23/24 08/08/24 History Phenol Liquid [place] 1 spray mucous membrane Q4H 08/08/24 08/08/24 History acetaminophen 325 mg tablet 650 mg PO Q6H PRN PAIN/FEVER 08/08/24 08/08/24 History (Tylenol) atorvastatin 40 mg tablet 40 mg PO QAM 08/08/24 08/08/24 History bisacodyl 10 mg rectal suppository 10 mg NE DAILY PRN Constipation 08/08/24 08/08/24 History calcium carbonate (Tums E-X) 300 mg PO Q6H PRN Heartburn 08/08/24 08/08/24 History clopidogrel 75 mg tablet (Plavix) 75 mg PO QAM 08/08/24 08/08/24 History colesevelam 625 mg tablet (WelChol) 625 mg PO BIDM 08/08/24 08/08/24 History dibucaine 1 % topical ointment 1 applic topical BID 08/08/24 08/08/24 History docusate sodium 100 mg capsule 100 mg PO BID PRN Constipation 08/08/24 08/08/24 History doxycycline hyclate 100 mg tablet 100 mg PO BID 08/08/24 08/08/24 History empagliflozin 25 mg tablet 25 mg PO QAM 08/08/24 08/08/24 History (Jardiance) ertapenem 1 gram solution for 1 g IV DAILY 08/08/24 08/08/24 History injection ferrous sulfate 325 mg (65 mg 325 mg PO TIDM 08/08/24 08/08/24 History iron) tablet fluconazole 100 mg tablet 100 mg PO DAILY 08/08/24 08/08/24 History gabapentin 100 mg capsule 100 mg PO .BID QAM & AFTERNOON 08/08/24 08/08/24 History gabapentin 300 mg capsule 600 mg PO HS 08/08/24 08/08/24 History guar gum 1 tbsp PO DAILY 08/08/24 08/08/24 History heparin, porcine (PF) 5,000 5,000 unit subcut TID 08/08/24 08/08/24 History unit/mL injection syringe hydrocortisone acetate 25 mg 25 mg NE BID PRN Hemorrhoids 08/08/24 08/08/24 History rectal suppository (Anusol-HC) insulin lispro 100 unit/mL 1 sliding scale dose subcut 08/08/24 08/08/24 History subcutaneous solution USEASDIRECTD levothyroxine 25 mcg tablet 25 mcg PO DAILYBB 08/08/24 08/08/24 History lidocaine HCl 2 % topical gel 1 applic topical Q8H PRN APPLY TO 08/08/24 08/08/24 History PENIS NEEDED linezolid 600 mg tablet 600 mg PO DIRECTED 08/08/24 08/08/24 History melatonin 3 mg tablet 3 mg PO HS 08/08/24 08/08/24 History methocarbamol 500 mg tablet 500 mg PO BID 08/08/24 08/08/24 History pantoprazole 40 mg tablet,delayed 40 mg PO DAILY 08/08/24 08/08/24 History release polyethylene glycol 3350 17 17 g PO QPM 08/08/24 08/08/24 History gram/dose oral powder (Miralax) sennosides 8.6 mg tablet (senna) 8.6 mg PO BID 08/08/24 08/08/24 History sennosides 8.6 mg-docusate sodium 2 tab-cap PO QDL 08/08/24 08/08/24 History 50 mg tablet (Senna Plus) silver sulfadiazine 1 % topical 1 applic topical DAILY 08/08/24 08/08/24 History cream (Silvadene) sodium chloride 0.9 % (flush) 10 ml IV Q12H 08/08/24 08/08/24 History (Normal Saline Flush 0.9 % injection syringe) sodium hypochlorite 0.25 % solution 1 applic topical Q8H 08/08/24 08/08/24 History tamsulosin 0.4 mg capsule (Flomax) 0.4 mg PO HS 08/08/24 08/08/24 History Past Med/Surg History Problem List (Updated 08/08/24 @ 19:59 by SARAH Brown) Positive culture findings in wound Sacral wound Gross hematuria PAD (peripheral artery disease) Medical History (Updated 08/08/24 @ 19:59 by SARAH Brown) Hypothyroidism 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 diabetes mellitus ICAO (internal carotid artery occlusion) bilateral Essential hypertension Guillain-[place] syndrome after administration of vaccine Dyslipidemia Embolic stroke involving right middle cerebral artery Osteomyelitis of ankle or foot, right, acute Presence of IVC filter Seizure-like activity Type 2 diabetes mellitus Carotid artery disease Kidney stone Surgical History (Updated 08/08/24 @ 18:00 by Bernadette Espino PA-C) S/P IVC filter History of thrombectomy S/P debridement multiple 07/25/24 right groin incision 07/02/24, 05/16/24 S/P femoral-tibial bypass S/P tonsillectomy S/P total hip arthroplasty S/P cataract surgery 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 Family History (Updated 08/08/24 @ 18:00 by Bernadette Espino PA-C) Other Cancer Diabetes Heart disease Social History (Updated 08/08/24 @ 19:37 by SARAH Brown) Smoking Status: Never smoker Hx Alcohol Use: No Hx Substance Use: No Preferred Language: Georgian Communication Ability: Effective Cook Relief Required: No Beliefs That Will Affect Care: None Current Living Situation: Other Current Living Situation Comment: Friend (poa) Feels Safe at Home: Yes Assistive Devices: Hearing Aid - Bilateral and Wheelchair Review of Systems Review of Systems: All systems reviewed & are unremarkable except as noted in HPI & below Physical Exam Physical Exam: General/Psych: WD/WN, laying in bed, NAD, conversing easily Head: normocephalic, atraumatic Eyes: normal inspection, PERRL, conjunctivae pink, anicteric sclerae ENT: external ear and nose normal, oropharynx normal Neck: normal visual inspection, trachea midline, Respiratory: normal respiratory effort, lungs clear to auscultation, no wheeze/rales/rhonchi, no accessory muscle use Cardiovascular: regular rate and rhythm, no murmur/rub/gallop, no JVD Extremities: no cyanosis or clubbing, normal peripheral pulses, no BLE edema Abdomen/GI: normal bowel sounds, soft, nontender, no hepatosplenomegaly : farrar in place with carol bloody urine Neurologic/MSK: A+Ox3, motor strength 5/5, moves all extremities Skin: no rashes, normal color, warm and dry, small open wound with 1cm tunneling at sacrum, no erythema or drainage, right groin surgical wound packed with c/d/i gauze and covered with abd dressing, right foot wrapped in dressing, platform shoes in place Results & Data Results & Data Vital Signs (Past 12 Hours) Vital Signs Temp Pulse Resp BP Pulse Ox O2 Del Method 08/08/24 14:13 79 08/08/24 13:46 36.6 C 89 20 113/62 95 Room Air Laboratory Results Short CBC 08/08/24 Range/Units 15:53 WBC 16.93 H (4.8-10.8) K/ul Hgb 10.4 L (14.0-18.0) g/dl Hct 34.1 L (42.0-52.0) % Plt Count 479 H (130-400) K/uL BMP 08/08/24 15:53 Sodium 141 Potassium 4.6 Chloride 107 Carbon Dioxide 27 BUN 28 H Creatinine 0.63 Glucose 147 H Calcium 9.3 Liver Function 08/08/24 Range/Units 15:53 Total Bilirubin 0.5 (0.2-1.0) mg/dl AST 8 L (13-39) U/L ALT 10 (7-52) U/L Alkaline Phosphatase 88 (34-104) U/L Albumin 3.6 (3.4-5.0) gm/dl I have independently reviewed and interpreted patient's admitting labs including CBC, CMP, PTT, PT/INR. Code Status & VTE Plan Code Status Full Code Supervising Physician Co-Signing Physician Notes 74-year-old male with complex vascular history /PAD with recent procedures to RLE and LLE presents due to abrupt hematuria since today morning. Patient also got his PICC line dislodged today. Patient has been following wound care and he has been started on doxycycline/linezolid/fluconazole recently, he is to complete his ertapenem by 08/16/2024. Patient denies fever. Continue his prior to arrival antibiotic, consult urology for hematuria, his new hemoglobin baseline is around 9-10, his admitting hemoglobin is 10.4. Given complex PAD and wound healing issues, will continue with DAPT. Also will continue with DVT prophylaxis since patient is wheelchair-bound/not mobile. Monitor H&H closely. follow blood cultures. On exam: unstageable sacral decubitus ulcer, right groin surgical wound packed with gauze and covered with abdominal dressing, right foot wrapped in dressing, bilateral platform shoes in place, l currently NEUROLOGICAL: No headache, c hange in mental status, weakness, numbness, or dizziness. Surgical scar healing appropriately. Rest of the examination as above. Total time spent independently: 32 minutes. I have seen and examined the patient and have discussed the case with the provider above. I agree with the assessment and plan as stated.
[2024-08-08] MEDS ORDERED: ARTIFICIAL TEARS OPB PRN (19:09)
[2024-08-08] MEDS: MoRPHine SULFATE 2 MG/ML CARP IV STA (19:18)
[2024-08-08 20:40] LABS: Appearance Urine Turbid (Clear); Glucose Urine UA 2+ (Negative)
--- NOTE | 2024-08-08 20:54 | Urology Consultation ---
Date of Consultation August 08, 2024 Assessment & Plan (1) Gross hematuria: Patient has been admitted on the hospitalist service. From a urologic perspective we recommend following: I am uncertain of what the cause of patient's gross hematuria causes It does not appear as though he has a urinary tract infection by urinalysis at this time At the present time the patient has a catheter in place which is patent and draining bloody urine. If the patient's Ware catheter does become clogged, nursing staff can employ manual flushing and irrigation Would recommend following serial labs Would recommend holding anticoagulants and antiplatelets As noted the patient is tentatively scheduled to have outpatient follow-up with a cystoscopy and potential CT urogram as an outpatient. Would recommend patient maintain these appointments. If there are any significant changes while he is an inpatient consideration can be given to performing a cystoscopy as an inpatient but the need for this is yet to be determined Additional recommendations be forthcoming based on clinical course as it unfol ds History of Present Illness Reason for Consultation: Hematuria Attending Physician: Giselle Antunez MD History of Present Illness This is a 74-year-old male who is recently admitted to [facility] for vascular surgery with subsequent rehab stay. The patient required hospitalization at [facility] from June 28 through July 05 of this year in order for him to undergo a vascular bypass surgery. This patient's hospitalization was complicated by strokelike symptoms. Patient also required a right transmetatarsal arm amputation during this hospitalization and operative cultures grew staph and Enterococcus. It was recommended at that time the patient receive 6 weeks of intravenous ertapenem and he had a PICC line placed and he was subsequent discharged to [facility] for rehab on 07/05/2024. It has been noted that patient was seen by urology while admitted at [facility] on 07/04/2024 secondary to urinary retention. Patient also developed gross hematuria and he required placement of a 22 [place] hematuria catheter with subsequent irrigation of his bladder for blood clot. Patient did require readmission to [facility] from July 25 through July 27 due to dehiscence of his right femoral incision and was ultimately discharged again to [facility] for rehab. Concerning urologic follow-up due to his gross hematuria plans were in place for patient to see urology as an outpatient for consideration of a cystoscopy as well as a CT urogram. The patient presented to [facility] today due to concern that his PICC line was not working properly as well as gross hematuria. The patient does note that he has had multiple Ware catheters in place and has urologic follow-up as outlined above but he could not provide any further details. At the present time he denies any back or flank pain. He denies any suprapubic discomfort. Since arrival hospitalist patient has had labs which independent reviewed. CBC revealed white blood cell count was elevated 16.9. Hemoglobin and hematocrit 10.4 and 34.1. Platelet count is 479,000. Coagulation studies are noted to be normal. Chemistry profile showed sodium and potassium as well as the creatinine are normal. There is a slight elevation of his BUN at 28. A urinalysis has been ordered and is pending. At the time my interview the patient was resting comfortably in bed and he was in no distress. 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 LAUNDRY DETERGENT AT Allergy Severe SEVERE Uncoded 08/08/24 17:21 [facility] Home Medications Medication Instructions Recorded Confirmed Type amlodipine 5 mg tablet 5 mg PO QAM 03/23/24 08/08/24 History aspirin 81 mg tablet,delayed 81 mg PO QAM 03/23/24 08/08/24 History release glimepiride 4 mg tablet 4 mg PO BID 03/23/24 08/08/24 History liraglutide 0.6 mg/0.1 mL (18 mg/3 1.8 mg subcut QAM 03/23/24 08/08/24 History mL) subcutaneous pen injector metformin 500 mg tablet,extended 1,500 mg PO QAM 03/23/24 08/08/24 History release 24 hr oxycodone 5 mg tablet 5 mg PO BID PRN Pain, Severe 03/23/24 08/08/24 History Phenol Liquid [place] 1 spray mucous membrane Q4H 08/08/24 08/08/24 History acetaminophen 325 mg tablet 650 mg PO Q6H PRN PAIN/FEVER 08/08/24 08/08/24 History (Tylenol) atorvastatin 40 mg tablet 40 mg PO QAM 08/08/24 08/08/24 History bisacodyl 10 mg rectal suppository 10 mg MD DAILY PRN Constipation 08/08/24 08/08/24 History calcium carbonate (Tums E-X) 300 mg PO Q6H PRN Heartburn 08/08/24 08/08/24 History clopidogrel 75 mg tablet (Plavix) 75 mg PO QAM 08/08/24 08/08/24 History colesevelam 625 mg tablet (WelChol) 625 mg PO BIDM 08/08/24 08/08/24 History dibucaine 1 % topical ointment 1 applic topical BID 08/08/24 08/08/24 History docusate sodium 100 mg capsule 100 mg PO BID PRN Constipation 08/08/24 08/08/24 History doxycycline hyclate 100 mg tablet 100 mg PO BID 08/08/24 08/08/24 History empagliflozin 25 mg tablet 25 mg PO QAM 08/08/24 08/08/24 History (Jardiance) ertapenem 1 gram solution for 1 g IV DAILY 08/08/24 08/08/24 History injection ferrous sulfate 325 mg (65 mg 325 mg PO TIDM 08/08/24 08/08/24 History iron) tablet fluconazole 100 mg tablet 100 mg PO DAILY 08/08/24 08/08/24 History gabapentin 100 mg capsule 100 mg PO .BID QAM & AFTERNOON 08/08/24 08/08/24 History gabapentin 300 mg capsule 600 mg PO HS 08/08/24 08/08/24 History guar gum 1 tbsp PO DAILY 08/08/24 08/08/24 History heparin, porcine (PF) 5,000 5,000 unit subcut TID 08/08/24 08/08/24 History unit/mL injection syringe hydrocortisone acetate 25 mg 25 mg MD BID PRN Hemorrhoids 08/08/24 08/08/24 History rectal suppository (Anusol-HC) insulin lispro 100 unit/mL 1 sliding scale dose subcut 08/08/24 08/08/24 History subcutaneous solution USEASDIRECTD levothyroxine 25 mcg tablet 25 mcg PO DAILYBB 08/08/24 08/08/24 History lidocaine HCl 2 % topical gel 1 applic topical Q8H PRN APPLY TO 08/08/24 08/08/24 History PENIS NEEDED linezolid 600 mg tablet 600 mg PO DIRECTED 08/08/24 08/08/24 History melatonin 3 mg tablet 3 mg PO HS 08/08/24 08/08/24 History methocarbamol 500 mg tablet 500 mg PO BID 08/08/24 08/08/24 History pantoprazole 40 mg tablet,delayed 40 mg PO DAILY 08/08/24 08/08/24 History release polyethylene glycol 3350 17 17 g PO QPM 08/08/24 08/08/24 History gram/dose oral powder (Miralax) sennosides 8.6 mg tablet (senna) 8.6 mg PO BID 08/08/24 08/08/24 History sennosides 8.6 mg-docusate sodium 2 tab-cap PO QDL 08/08/24 08/08/24 History 50 mg tablet (Senna Plus) silver sulfadiazine 1 % topical 1 applic topical DAILY 08/08/24 08/08/24 History cream (Silvadene) sodium chloride 0.9 % (flush) 10 ml IV Q12H 08/08/24 08/08/24 History (Normal Saline Flush 0.9 % injection syringe) sodium hypochlorite 0.25 % solution 1 applic topical Q8H 08/08/24 08/08/24 History tamsulosin 0.4 mg capsule (Flomax) 0.4 mg PO HS 08/08/24 08/08/24 History Patient History Medical History Hypothyroidism 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 diabetes mellitus ICAO (internal carotid artery occlusion) bilateral Essential hypertension 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 Dyslipidemia Embolic stroke involving right middle cerebral artery Osteomyelitis of ankle or foot, right, acute Presence of IVC filter Seizure-like activity Type 2 diabetes mellitus Carotid artery disease Kidney stone Surgical History S/P IVC filter History of thrombectomy S/P debridement multiple 07/25/24 right groin incision 07/02/24, 05/16/24 S/P femoral-tibial bypass S/P tonsillectomy S/P total hip arthroplasty S/P cataract surgery 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 Family History Other Cancer Diabetes Heart disease Social History Smoking Status: Never smoker Hx Alcohol Use: No Hx Substance Use: No Preferred Language: Andorran Communication Ability: Effective Manager Of Network Required: No Beliefs That Will Affect Care: None Current Living Situation: Other Current Living Situation Comment: Friend (shaylee) Feels Safe at Home: Yes Assistive Devices: Hearing Aid - Bilateral and Wheelchair Review of Systems Review of Systems: All systems reviewed & are unremarkable except as noted in HPI & below Physical Exam Constitutional: WD/WN, vitals as above Eyes: Wears glasses ENMT: Ears: no hearing impairment and no external ear abnormality Neck: trachea midline Respiratory: normal respiratory effort; no respiratory distress and no labored breathing Cardiovascular: Rate/Rhythm: regular rate Gastrointestinal (Abdomen): At the time my exam patient's abdomen is soft and nontender. He did not any suprapubic discomfort Skin: no rashes Neurologic: moves all extremities Psychiatric: A+Ox3, euthymic affect Genitourinary: No CVA tenderness with percussion bilaterally. Patient has noted to have a 14 [place] Ware catheter in place at this time. Ware catheter is draining bloody urine which is maroon-colored with occasional blood clots. The catheter does appear patent at this time. Results & Data Vital Signs (Past 12 Hours) Vital Signs Temp Pulse Pulse Resp BP BP Pulse Ox 08/08/24 19:03 83 12 105/48 L 99 08/08/24 18:37 80 18 112/78 97 08/08/24 18:14 74 08/08/24 14:19 97 08/08/24 14:13 79 08/08/24 13:46 36.6 C 89 20 113/62 95 O2 Del Method 08/08/24 19:03 08/08/24 18:37 Room Air 08/08/24 18:14 08/08/24 14:19 Room Air 08/08/24 14:13 08/08/24 13:46 Room Air PG Care Time/CCT Total # of Minutes Spent Total Time Spent with Patient: Total time spent is greater than 50% in coordination of care (as documented) at patient's floor/unit and/or counseling patient: Coding Level of Care Code 58088 INT INP/OBS CARE 3/75MIN Diagnoses Gross hematuria R31.0
[2024-08-08 20:56] LABS: Epithelial Cell Urine 0-2 /hpf (0-2)
[2024-08-08] MEDS ORDERED: PHARMACY GLYCEMIC MGMT CONSULT PRN (20:58)
[2024-08-08] MEDS ORDERED: GLUCAGON FOR INJ 1 MG VIAL SQ PRN (20:58)
[2024-08-08] MEDS ORDERED: CARBOHYDRATES FOR HYPOGLYCEMIA PO PRN (20:58)
[2024-08-08] MEDS ORDERED: GLUCOSE 40% GEL 15 GM TUBE PO PRN (20:58)
[2024-08-08] MEDS ORDERED: DOCUSATE SODIUM 100 MG CAP PO PRN (20:58)
[2024-08-08] MEDS ORDERED: DEXTROSE 50% 50 ML SYRINGE IV PRN (20:58)
[2024-08-08] MEDS ORDERED: GLUCOSE 10 TAB/TUBE PO PRN (20:58)
[2024-08-08] MEDS: INSULIN ASPART PER UNIT CHARGE SC SCH (21:34)
[2024-08-08] MEDS: MELATONIN 3 MG TAB PO SCH (21:51)
[2024-08-08] MEDS: ENOXAPARIN INJ 40 MG/0.4 ML SYR SQ SCH (21:52)
[2024-08-08] MEDS: PHENAZOPYRIDINE HCL 200 MG TAB PO SCH (21:52)
[2024-08-08] MEDS: LINEZOLID 600 MG TAB PO SCH (21:52)
[2024-08-08] MEDS: TAMSULOSIN HCL 0.4 MG CAP PO SCH (21:52)
[2024-08-08] MEDS: DOXYCYCLINE HYCLATE 100 MG CAP PO SCH (21:52)
[2024-08-08] MEDS: GABAPENTIN 300 MG CAP PO SCH (21:52)
[2024-08-08] MEDS: DAKIN'S SOLN 0.25% HALF STRENGTH 473ML BTL EXT SCH (21:53)
[2024-08-08] MEDS: MoRPHine SULFATE 2 MG/ML CARP IV PRN (23:14)
[2024-08-08 23:18] LABS: Hematocrit (blood only) 31.9 % (42.0-52.0); Hemoglobin 9.9 g/dl (14.0-18.0)
[2024-08-09] MEDS: LEVOTHYROXINE SODIUM 25 MCG TABLET PO SCH (06:06)
[2024-08-09 06:24] LABS: Hematocrit (blood only) 32.7 % (42.0-52.0); Hemoglobin 10.3 g/dl (14.0-18.0); Immature Granulocytes # (auto) 0.07 K/uL (0.01-0.20); Immature Granulocytes % (auto) 0.6 %; Mean Corpuscular Hemoglobin 28.1 pg (25.0-34.0); Mean Corpuscular Volume 89.1 fL (80.0-100.0); Platelet Count 435 K/uL (130-400); RDW Standard Deviation 53.4 fL (36.4-46.3); Red Blood Count 3.67 M/uL (4.70-6.10); White Blood Count 11.45 K/ul (4.8-10.8)
[2024-08-09 06:42] LABS: Anion Gap 7.0 (3-11); Blood Urea Nitrogen 24.0 mg/dl (6-23); Calcium 8.9 mg/dl (8.6-10.3); Carbon Dioxide 25.0 mmol/L (21-32); Chloride 109.0 mmol/L (98-107); Creatinine Clr Calc Pharmacy 121.4 ml/min; Glucose 113.0 mg/dl (70-99(Fasting)); Potassium 4.3 mmol/L (3.5-5.1); Sodium 141.0 mmol/L (136-145)
[2024-08-09] MEDS: ASPIRIN 81 MG ECTAB PO SCH (09:13)
[2024-08-09] MEDS: ATORVASTATIN 40 MG TAB PO SCH (09:13)
[2024-08-09] MEDS: FERROUS SULFATE 325 MG TAB PO SCH (09:13)
[2024-08-09] MEDS: GABAPENTIN 100 MG CAP PO SCH (09:13)
[2024-08-09] MEDS: CLOPIDOGREL BISULFATE 75 MG TAB PO SCH (09:14)
--- NOTE | 2024-08-09 09:53 | Pharmacy Report ---
Pharmacy Glycemic Short Note 2 - Date of Service August 09, 2024 - Glycemic Short BSG Results (Last 24 hours): 08/08/24 08/08/24 08/09/24 15:53 21:01 05:53 Glucose 147 H 113 H POC Glucose 101 H 08/09/24 07:59 Glucose POC Glucose 127 H OUTPATIENT ANTIDIABETIC REGIMEN: * Humalog SSI * Empagliflozin 25 mg PO daily * Glimepiride 4 mg PO BID * Metformin 1500 mg PO daily HbA1c: 8% (03/23/24), reordered for 08/10/24 ASSESSMENT: * RS is a 74 year old male who presented to ED yesterday following recent discharge from [facility] now with gross hematuria and displacement of PICC line (completing therapy w/ IV ertapenem for LE wound infection) * Current antibiotic regimen includes ertapenem, linezolid, and doxycycline * Blood sugars have been well-controlled since time of admission with Novolog ordered only at this time * Diet ordered PLAN FOR INPATIENT GLYCEMIC CONTROL: * Hold outpatient oral diabetes medications * Basal insulin * Lantus 0-5-10 units SC HS (see EHR for details) * Bolus insulin * NovoLog per scale ACHS or Q6hrs while NPO * Goal Range: Low 110 mg/dL - High 140 mg/dL * Correction Factor: 30 mg/dL/unit * Nutritional / Prandial insulin per carb ratio of 1 unit per 10 grams CHO consumed
--- NOTE | 2024-08-09 10:58 | Urology Progress Note ---
Date of Service August 09, 2024 Assessment & Plan (1) Gross hematuria: Plan Follow-up for gross hematuria Patient is afebrile, mildly hypotensive, otherwise stable vitals Labs-WBCs 11.45, hemoglobin 10.3, creatinine 0.56 Urine and blood cultures pending Upon my arrival, the catheter was draining slowly with what appeared to be clot/debris in the tubing. I manually hand irrigated without issue. The catheter flushed well and I had no return of clots and/or debris. The catheter was draining light pink urine at completion. The patient had no reported pain and tolerated the procedure well. Continue antibiotics and follow cultures Maintain Waer catheter, can hand irrigate as needed for clots, retention, suprapubic pain Continue supportive care Per notes, patient has plans to see [facility] urology outpatient for consideration of a cystoscopy as well as a CT urogram for follow-up of hematuria. Given his persistent hematuria, will obtain CT urogram for evaluation. Will plan to make n.p.o. at midnight for reassessment in the morning. Urology will follow, please call with any questions/concerns. Plan discussed with Dr. Hughes. Attending note: Patient independently assessed, examined, interviewed, and evaluated. Agree with note as above. Patient's vitals and labs were all reviewed. Pertinent values in the HPI and plan section. Imaging was reviewed interpreted by myself. Patient completed CT urogram. This was reviewed. Does have thickening along the bladder with likely blood/clot within the lumen. No sign of mass or tumor. Does have irregular appearance but may be due to inflammation or irritation or clot. Catheter does appear to be in good position. Otherwise agree with read. Vitals were reviewed. Patient had been having some confusion earlier today after pain medication. On my evaluation this has subsided and patient was alert and oriented was answering questions appropriately, and was able to discuss recent events and ongoing issues without problem or concern. Patient was also hoping to undergo workup while inpatient especially if bleeding issues continue. Is concerned about possibly developing significant bleeding episode again if he is discharged that we require readmission to the hospital. Discussed findings extensively with patient. Reviewed with nurse practitioner as well as consulting physicians/team. Patient's complicated medical and surgical history was reviewed and summarized above. Patient's surgical, medical, social, and family history were all reviewed with pertinent values as above. Discussed patient's current diagnosis as well as concerns and issues. Reviewed different options moving forward. Discussed potential risks and benefits as well as possible options and concerns. Reviewed potential surgical options and interventions. Discussed potential issues and concerns related to intervention. Risk and benefits were discussed extensively with patient and any available family. Discussed potential risks related to anesthesia. Discussed risks of bleeding infection and injury. Imaging has been completed. Did review this with patient. Will plan to monitor patient. Will make n.p.o. at midnight with plans for possible cystoscopy especially if patient continues to have episodes of bleeding. If patient develops significant clot retention or obstruction of the catheter would consider exchanging catheter versus taking to the OR for clot evacuation. Will need to assess bladder for possible tumor or other bleeding lesion. Patient does appear to have an extremely large prostate may be the source of the ongoing bleeding. Patient significant burning irritation and bother likely secondary to the hematuria as well as possible infection and inflammation from the episodes of bleeding. Additionally the catheter may be contributing. Will plan to monitor. Will reevaluate in the morning with plans for possible intervention if significant bleeding or other issues continue or worsen. Admission and Anticipated Discharge Date Admission Date: August 08, 2024 Subjective Pt seen at bedside today Awake and resting in bed on arrival No acute distress Ware draining light red urine Denies bladder pain or pressure No fevers Per nursing patient was having some mild confusion after pain medication today. By the time I was interacting with the patient however this has subsided. Patient was alert and oriented. And was answering questions appropriately. Patient has had episode of significant bleeding. Is concerned about possible source of bleeding. Had plans in place to undergo further workup. Had discussed different options including evaluation while the patient is inpatient especially with the clot and difficulty with hematuria. Patient had been agreeable to move forward with this. Had completed imaging today. Patient is not having severe pain episodes is having continued bothersome burning and irritation. No fevers or chills. Has been tolerating diet. Review of Systems Review of Systems: All systems reviewed & are unremarkable except as noted in HPI & below Constitutional: as per Subjective / HPI Genitourinary: + as per Subjective / HPI Physical Exam Physical Exam: General: Alert in no acute distress. HEENT: Normocephalic Atraumatic. Inspection normal. Cranial Nerves 2-12 Grossly intact. Normal inspection of face. Normal inspection of neck. Psychologic: Normal affect. Respiratory: Nonlabored. No use of accessory muscles. No tachypnea or dyspnea. Cardiovascular: No tachycardia Skin: [place] and Dry. No rashes or visible lesions. Extremities/Lymphatics: No edema Abdomen: Soft Non-distended. No rebound or guarding. : Catheter in place draining light red urine. No clot Constitutional: no acute distress Respiratory: no respiratory distress and no labored breathing Gastrointestinal (Abdomen): Percussion/Palpation: abdomen soft; abdomen nontender Neurologic: awake Psychiatric: A+Ox3, euthymic affect Genitourinary: Ware intact Results & Data Vital Signs (Past 12 Hours) Vital Signs Temp Pulse Resp BP Pulse Ox O2 Del Method 08/09/24 08:23 36.4 C L 65 16 91/57 L 95 Room Air 08/09/24 08:00 Room Air 08/09/24 03:41 36.9 C 76 18 105/67 96 Room Air PG Care Time/CCT Total # of Minutes Spent Total Time Spent with Patient: Total time spent is greater than 50% in coordination of care (as documented) at patient's floor/unit and/or counseling patient: Coding Level of Care Code 63023 SUB INP/OBS CARE 3/50MIN Diagnoses Gross hematuria R31.0
--- NOTE | 2024-08-09 14:57 | Hospitalist Progress Note ---
Date of Service August 09, 2024 Assessment & Plan (1) Positive culture findings in wound: (2) Gross hematuria: (3) Sacral wound: (4) PAD (peripheral artery disease): (5) Type 2 diabetes mellitus: (6) Essential hypertension: (7) Dyslipidemia: (8) Hypothyroidism: Plan Patient is a 74 yr old wheelchair bound male with PMH significant for type 2 diabetes, hyperlipidemia, diabetic retinopathy, peripheral artery disease, atherosclerosis, history of embolic stroke involving right middle cerebral artery (Mar 2024), left-sided weakness, hypertension, hypothyroidism, bilateral internal carotid artery occlusions, mild to moderate aortic stenosis, urinary retention, chronic bilateral low back pain, GERD, BPH, constipation, 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 Right groin wound Right Foot Wound Sacral 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 Positive cultures PICC line dislodgement --S/P right groin debridement for superficial incisional dehiscence and LLE angiogram for PVD/left great toe gangrene on 07/25/[address] Ross - on 6 weeks of ertapenem after OR cultures grew staph and enterococcus --PICC removed and US guided PIV placed in ED --Blood cultures pending --Continue IV ertapenem 1g daily until end date of 08/16/2024 --Also was prescribed on 08/06/2024: fluconazole x3 days (completed), linezolid x4 days (ordered one more day), doxycycline x10 days (ordered until 08/16) --Will complete linezolid course today --Consider ID evaluation based on blood cultures --Continue wound care --Consulted vascular surgery as well Gross hematuria Suspected complicated urinary tract infection In setting of dual antiplatelet therapy --Blood, urine culture pending --Empirically on ertapenem, Zyvox as above Appreciate urology input --CT abdomen pending Monitor H&H and transfuse as needed Avoid anticoagulation for now Continue Ware catheter Pyridium as needed Pressure ulcer of sacral region, at least Stage 2, POA WOCN consult Turn and reposition q2hr Pain control with tylenol and morphine PRN PAD --S/P right groin debridement for superficial incisional dehiscence and LLE angiogram for PVD/left great toe gangrene on 07/25/[address] Ross --Continue baby aspirin and Plavix daily for vasculopathy --Continue Lipitor --Heel suspension boots --Wound care per vascular surgery: -Wash right foot daily, no soaking/submersion -Dankins soaked gauze packing amp site & open groin site, cover w/ DSD and light Kerlix wrap of right foot -Heal protector for right foot -Continue platform shoe -[place] left great toe w/ Betadine DM II On Jardiance, glimepiride, liraglutide, metformin at home - hold while hospitalized Continue insulin per protocol Monitor blood glucose levels Glycemic pharmacy consulted Hypertension BP relatively low on presentation Hold amlodipine for now Monitor blood pressure Hyperlipidemia Continue atorvastatin and colesevelam Hypothyroidism Continue levothyroxine GERD Continue pantoprazole BPH Continue tamsulosin Severe malnutrition Will consult dietitian DVT Px: SQ Lovenox Code Status: FULL CODE PCP: Gabriele Dumas MD Admission and Anticipated Discharge Date Admission Date: August 08, 2024 Subjective Patient is seen and examined at bedside States having right groin wound pain Also reports dysuria Hematuria improving Discussed with urology today Reports chronic left-sided weakness from prior CVA Denies any chest pain, dyspnea, dizziness No other complaints Review of Systems Review of Systems: All systems reviewed & are unremarkable except as noted in Subjective Physical Exam Physical Exam: Physical Exam: Vitals signs as noted above General Appearance:Moderately built and nourished, no apparent distress, chronic ill appearing Head: normocephalic, Atraumatic Eyes: normal inspection, EOMI Neck: supple, Trachea midline Respiratory/Chest: Normal breath sounds, CTA, No accessory muscle use Cardiovascular: S1, S2, No murmur Abdomen/GI:Soft, Non tender, Bowel sounds present Extremities/Musculoskeletal:normal inspection, no edema Neurologic/Psych:AAOX3, + Facial droop, minimal left sided weakness Skin: +R groin surgical wound, small sacral wound, R foot partial amputation, wound, Left great toe gangrenous, missing digits Results & Data Results & Data Vital Signs (Past 12 Hours) Vital Signs Temp Pulse Pulse Resp BP Pulse Ox O2 Del Method 08/09/24 12:19 36.8 C 72 18 132/76 96 Room Air 08/09/24 08:23 36.4 C L 65 16 91/57 L 95 Room Air 08/09/24 08:00 74 08/09/24 08:00 Room Air 08/09/24 03:41 36.9 C 76 18 105/67 96 Room Air Laboratory Results Short CBC 08/08/24 08/08/24 08/09/24 Range/Units 15:53 22:50 05:53 WBC 16.93 H 11.45 H (4.8-10.8) K/ul Hgb 10.4 L 9.9 L 10.3 L (14.0-18.0) g/dl Hct 34.1 L 31.9 L 32.7 L (42.0-52.0) % Plt Count 479 H 435 H (130-400) K/uL BMP 08/08/24 08/09/24 15:53 05:53 Sodium 141 141 Potassium 4.6 4.3 Chloride 107 109 H Carbon Dioxide 27 25 BUN 28 H 24 H Creatinine 0.63 0.56 L Glucose 147 H 113 H Calcium 9.3 8.9 Liver Function 08/08/24 Range/Units 15:53 Total Bilirubin 0.5 (0.2-1.0) mg/dl AST 8 L (13-39) U/L ALT 10 (7-52) U/L Alkaline Phosphatase 88 (34-104) U/L Albumin 3.6 (3.4-5.0) gm/dl Urine 08/08/24 Range/Units 20:08 Urine Color Red Urine Appearance Turbid A (Clear) Urine pH 6.0 (4.5-7.5) Ur Specific [place] 1.025 (1.000-1.030) Urine Protein 2+ H (Negative) Urine Glucose (UA) 2+ H (Negative)
[2024-08-09 15:39] LABS: Hematocrit (blood only) 32.6 % (42.0-52.0); Hemoglobin 10.1 g/dl (14.0-18.0)
[2024-08-09] MEDS: OPTIRAY 320 100ml IV ONE (15:58)
--- NOTE | 2024-08-09 16:25 | CT Scan Report ---
EXAMINATION: CT of the abdomen and pelvis performed before and after the administration of IV contrast TECHNIQUE: Helical CT images from the lung bases through the symphysis pubis were obtained with an out contrast. Coronal and sagittal reformatted images were generated at a workstation for further assessment. Dose reduction techniques were achieved by using automatic exposure control and/or adjustment of mA and/or kV according to patient size and/or use of iterative reconstruction technique. COMPARISON: 11/11/2019 HISTORY: Abdominal pain FINDINGS: Lower chest: No consolidation. No pleural effusion or pneumothorax. Liver: No suspicious liver lesions. Portal veins appear patent. Gallbladder: Scattered calcified gallstones. No evidence of acute cholecystitis. Spleen: Normal size. Pancreas: No suspicious pancreatic lesions. The pancreatic duct is not dilated. Adrenal glands: No adrenal nodules. Kidneys: No hydronephrosis or obstructing renal stones. Simple appearing cysts. Bladder / Pelvic organs: There is a Ware catheter in place. The bladder wall appears significantly thickened. There is mucosal hyperenhancement in the bladder. The urinary bladder is incompletely distended, and possibly filled with hyperattenuating contents. The prostate gland appears markedly enlarged. Bowel: No bowel obstruction. No abnormal bowel wall thickening. The appendix is unremarkable. Lymph nodes: No retroperitoneal, mesenteric, or pelvic lymphadenopathy. Peritoneum / Retroperitoneum: No free fluid or air within the abdomen. Vessels: No infrarenal aortic aneurysm. Moderate aortoiliac atherosclerosis. Bones and soft tissues: No suspicious lesion in the bones. Right hip arthroplasty. High attenuating bone island in the right iliac bone as well as a smaller bone island in the left iliac bone. IMPRESSION: Apparent increased attenuating contents within the bladder, which is incompletely distended, and contains a Ware catheter, possibly representing blood products. Thickening of the urinary bladder wall and mucosal hyperenhancement, as above, may be seen with cystitis. Markedly enlarged prostate gland. No renal or ureteral stone or renal mass. Electronically signed by Ortega Santos 08-09-2024 4:25 PM
[2024-08-09] MEDS: COLESEVELAM HCL 625 MG PO SCH (18:07)
[2024-08-09] MEDS: ERTAPENEM 1000MG 1,000 MG/10 ML SYR IV SCH (18:11)
[2024-08-09] MEDS: MoRPHine SULFATE 2 MG/ML CARP IV PRN (18:12)
[2024-08-09] MEDS: LANTUS PER UNIT CHARGE SC SCH (20:31)
[2024-08-10 06:20] LABS: Hematocrit (blood only) 31.1 % (42.0-52.0); Hemoglobin 9.7 g/dl (14.0-18.0); Mean Corpuscular Hemoglobin 27.6 pg (25.0-34.0); Mean Corpuscular Volume 88.6 fL (80.0-100.0); Platelet Count 398 K/uL (130-400); RDW Standard Deviation 53.2 fL (36.4-46.3); Red Blood Count 3.51 M/uL (4.70-6.10); White Blood Count 11.17 K/ul (4.8-10.8)
[2024-08-10] MEDS: CALCIUM CARBONATE 500 MG CHEWABLE TAB PO PRN (06:32)
[2024-08-10 06:36] LABS: Anion Gap 8.0 (3-11); Blood Urea Nitrogen 26.0 mg/dl (6-23); Calcium 8.7 mg/dl (8.6-10.3); Carbon Dioxide 24.0 mmol/L (21-32); Chloride 106.0 mmol/L (98-107); Creatinine Clr Calc Pharmacy 106.2 ml/min; Glucose 124.0 mg/dl (70-99(Fasting)); Magnesium 2.1 mg/dl (1.7-2.4); Potassium 4.4 mmol/L (3.5-5.1); Sodium 138.0 mmol/L (136-145)
[2024-08-10 07:24] LABS: Hemoglobin A1C 5.6 % (4.5-5.6)
--- NOTE | 2024-08-10 08:34 | Anesthesiology Consultation ---
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 LAUNDRY DETERGENT AT Allergy Severe SEVERE Uncoded 08/08/24 17:21 [facility] Medications Home Medications Medication Instructions Recorded Confirmed Last Taken amlodipine 5 mg tablet 5 mg PO QAM 03/23/24 08/08/24 08/08/24 aspirin 81 mg tablet,delayed 81 mg PO QAM 03/23/24 08/08/24 08/08/24 release glimepiride 4 mg tablet 4 mg PO BID 03/23/24 08/08/24 08/08/24 08:00 liraglutide 0.6 mg/0.1 mL (18 mg/3 1.8 mg subcut QAM 03/23/24 08/08/24 08/08/24 mL) subcutaneous pen injector metformin 500 mg tablet,extended 1,500 mg PO QAM 03/23/24 08/08/24 08/08/24 release 24 hr oxycodone 5 mg tablet 5 mg PO BID PRN Pain, Severe 03/23/24 08/08/24 Unknown Phenol Liquid [place] 1 spray mucous membrane Q4H 08/08/24 08/08/24 Unknown acetaminophen 325 mg tablet 650 mg PO Q6H PRN PAIN/FEVER 08/08/24 08/08/24 Unknown (Tylenol) atorvastatin 40 mg tablet 40 mg PO QAM 08/08/24 08/08/24 08/08/24 bisacodyl 10 mg rectal suppository 10 mg AR DAILY PRN Constipation 08/08/24 08/08/24 Unknown calcium carbonate (Tums E-X) 300 mg PO Q6H PRN Heartburn 08/08/24 08/08/24 Unknown clopidogrel 75 mg tablet (Plavix) 75 mg PO QAM 08/08/24 08/08/24 08/08/24 colesevelam 625 mg tablet (WelChol) 625 mg PO BIDM 08/08/24 08/08/24 08/08/24 08:00 dibucaine 1 % topical ointment 1 applic topical BID 08/08/24 08/08/24 Unknown docusate sodium 100 mg capsule 100 mg PO BID PRN Constipation 08/08/24 08/08/24 Unknown doxycycline hyclate 100 mg tablet 100 mg PO BID 08/08/24 08/08/24 Unknown empagliflozin 25 mg tablet 25 mg PO QAM 08/08/24 08/08/24 08/08/24 (Jardiance) ertapenem 1 gram solution for 1 g IV DAILY 08/08/24 08/08/24 Unknown injection ferrous sulfate 325 mg (65 mg 325 mg PO TIDM 08/08/24 08/08/24 08/08/24 08:00 iron) tablet fluconazole 100 mg tablet 100 mg PO DAILY 08/08/24 08/08/24 Unknown gabapentin 100 mg capsule 100 mg PO .BID QAM & AFTERNOON 08/08/24 08/08/24 08/08/24 08:00 gabapentin 300 mg capsule 600 mg PO HS 08/08/24 08/08/24 08/07/24 guar gum 1 tbsp PO DAILY 08/08/24 08/08/24 08/08/24 heparin, porcine (PF) 5,000 5,000 unit subcut TID 08/08/24 08/08/24 Unknown unit/mL injection syringe hydrocortisone acetate 25 mg 25 mg AR BID PRN Hemorrhoids 08/08/24 08/08/24 Unknown rectal suppository (Anusol-HC) insulin lispro 100 unit/mL 1 sliding scale dose subcut 08/08/24 08/08/24 Unknown subcutaneous solution USEASDIRECTD levothyroxine 25 mcg tablet 25 mcg PO DAILYBB 08/08/24 08/08/24 08/08/24 lidocaine HCl 2 % topical gel 1 applic topical Q8H PRN APPLY TO 08/08/24 08/08/24 Unknown PENIS NEEDED linezolid 600 mg tablet 600 mg PO DIRECTED 08/08/24 08/08/24 Unknown melatonin 3 mg tablet 3 mg PO HS 08/08/24 08/08/24 08/07/24 methocarbamol 500 mg tablet 500 mg PO BID 08/08/24 08/08/24 08/08/24 08:00 pantoprazole 40 mg tablet,delayed 40 mg PO DAILY 08/08/24 08/08/2408/08/25 release polyethylene glycol 3350 17 17 g PO QPM 08/08/24 08/08/24 08/07/24 gram/dose oral powder (Miralax) sennosides 8.6 mg tablet (senna) 8.6 mg PO BID 08/08/24 08/08/24 08/08/24 08:00 sennosides 8.6 mg-docusate sodium 2 tab-cap PO QDL 08/08/24 08/08/24 08/07/24 50 mg tablet (Senna Plus) silver sulfadiazine 1 % topical 1 applic topical DAILY 08/08/24 08/08/24 Unknown cream (Silvadene) sodium chloride 0.9 % (flush) 10 ml IV Q12H 08/08/24 08/08/24 Unknown (Normal Saline Flush 0.9 % injection syringe) sodium hypochlorite 0.25 % solution 1 applic topical Q8H 08/08/24 08/08/24 Unknown tamsulosin 0.4 mg capsule (Flomax) 0.4 mg PO HS 08/08/24 08/08/24 08/07/24 Active Medications Generic Name Dose Route Start Last Admin Trade Name Freq PRN Reason Stop Dose Admin Aspirin 81 mg 08/09/24 09:00 08/09/24 09:13 Aspirin 81 Mg Ectab PO 09/08/24 08:59 81 mg QAM BONNIE Administration Atorvastatin Calcium 40 mg 08/09/24 09:00 08/09/24 09:13 Atorvastatin 40 Mg Tab PO 09/08/24 08:59 40 mg QAM BONNIE Administration Calcium Carbonate 500 mg 08/08/24 21:23 08/10/24 06:32 Calcium Carbonate 500 Mg Chewable Tab PO 09/07/24 21:22 500 mg Q6H PRN Administration Heartburn Clopidogrel Bisulfate 75 mg 08/09/24 09:00 08/09/24 09:14 Clopidogrel Bisulfate 75 Mg Tab PO 09/08/24 08:59 75 mg QAM BONNIE Administration Colesevelam HCl 1 each 08/09/24 17:00 08/09/24 18:07 Colesevelam Hcl 625mg PO 09/08/24 16:59 1 each BIDM BONNIE Administration Protocol Doxycycline Hyclate 100 mg 08/08/24 21:45 08/09/24 20:55 Doxycycline Hyclate 100 Mg Cap PO 08/16/24 21:44 100 mg BID BONNIE Administration Enoxaparin Sodium 40 mg 08/08/24 21:00 08/09/24 20:55 Enoxaparin Inj 40 Mg/0.4 Ml Syr SQ 09/07/24 20:59 40 mg Q24H BONNIE Administration Ferrous Sulfate 325 mg 08/09/24 08:00 08/09/24 18:08 Ferrous Sulfate 325 Mg Tab PO 09/08/24 07:59 325 mg TIDM BONNIE Administration Gabapentin 600 mg 08/08/24 21:00 08/09/24 20:54 Gabapentin 300 Mg Cap PO 09/07/24 20:59 600 mg HS BONNIE Administration Gabapentin 100 mg 08/09/24 09:00 08/09/24 13:21 Gabapentin 100 Mg Cap PO 09/08/24 08:59 100 mg 0900,1400 BONNIE Administration Ertapenem 1,000 mg in 10 mls @ 2 mls/min 08/09/24 18:00 08/09/24 18:11 Invanz 1000mg IV 08/16/24 17:59 2 mls/min Q24H BONNIE Administration Insulin Aspart 0 units 08/08/24 21:00 08/09/24 20:31 Insulin Aspart Per Unit Charge SC 09/07/24 20:59 Not Given ACHS BONNIE Insulin Glargine 0 units 08/09/24 21:00 08/09/24 20:31 Lantus Per Unit Charge SC 09/08/24 20:59 Not Given HS BONNIE Protocol Levothyroxine Sodium 25 mcg 08/09/24 06:30 08/10/24 06:32 Levothyroxine Sodium 25 Mcg Tablet PO 09/08/24 06:29 25 mcg DAILYBB BONNIE Administration Linezolid 600 mg 08/08/24 21:00 08/09/24 20:54 Linezolid 600 Mg Tab PO 08/10/24 09:01 600 mg BID BONNIE Administration Melatonin 3 mg 08/08/24 21:00 08/09/24 20:55 Melatonin 3 Mg Tab PO 09/07/24 20:59 3 mg HS BONNIE Administration Morphine Sulfate 2 mg 08/09/24 13:45 08/10/24 04:53 Morphine Sulfate 2 Mg/Ml Carp IV 08/22/24 20:57 2 mg Q4H PRN Administration Severe Pain (Scale 7, 8, 9,10) Pantoprazole Sodium 40 mg 08/09/24 09:00 08/09/24 09:14 Pantoprazole 40 Mg Tab PO 09/08/24 08:59 40 mg DAILY BONNIE Administration Sodium Hypochlorite 1 appln 08/08/24 22:00 08/09/24 20:55 Dakin's Soln 0.25% Half Strength 473ml Btl EXT 09/07/24 21:59 1 appln Q8H BONNIE Administration Tamsulosin HCl 0.4 mg 08/08/24 21:00 08/09/24 20:55 Tamsulosin Hcl 0.4 Mg Cap PO 09/07/24 20:59 0.4 mg HS BONNIE Administration Past Medical History Medical History Hypothyroidism 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 diabetes mellitus ICAO (internal carotid artery occlusion) bilateral Essential hypertension 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 Dyslipidemia Embolic stroke involving right middle cerebral artery Osteomyelitis of ankle or foot, right, acute Presence of IVC filter Seizure-like activity Type 2 diabetes mellitus Carotid artery disease Kidney stone Past Family History Family History Other Cancer Diabetes Heart disease Past Surgical History Surgical History S/P IVC filter History of thrombectomy S/P debridement multiple 07/25/24 right groin incision 07/02/24, 05/16/24 S/P femoral-tibial bypass S/P tonsillectomy S/P total hip arthroplasty S/P cataract surgery 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 Social History Smoking Status: Never smoker Hx Alcohol Use: No Hx Substance Use: No substance use type: does not use Physical Exam Vital Signs Last Vital Signs Temp 98.1 F 08/10/24 07:15 Pulse 70 08/10/24 07:15 Resp 18 08/10/24 07:15 BP 102/62 08/10/24 07:15 Pulse Ox 95 08/10/24 07:15 O2 Del Method Room Air 08/10/24 07:15 Testing Laboratory Results 08/10/24 05:33 08/10/24 05:33 PT 10.2 Seconds (9.0-12.0) 08/08/24 15:53 INR 0.9 (0.9-1.1) 08/08/24 15:53 Hemoglobin A1c 5.6 % (4.5-5.6) 08/10/24 05:33 Urine Color Red 08/08/24 20:08 Urine Appearance Turbid (Clear) A 08/08/24 20:08 Urine pH 6.0 (4.5-7.5) 08/08/24 20:08 Ur Specific [place] 1.025 (1.000-1.030) 08/08/24 20:08 Urine Protein 2+ (Negative) H 08/08/24 20:08 Urine Glucose (UA) 2+ (Negative) H 08/08/24 20:08 Urine Ketones Negative (Negative) 08/08/24 20:08 Urine Nitrite Negative (Negative) 08/08/24 20:08 Ur Leukocyte Esterase Trace (Negative) H 08/08/24 20:08 Urine RBC >20 /hpf (0-2) H 08/08/24 20:08 Urine WBC 21-50 /hpf (0-5) H 08/08/24 20:08 Ur Epithelial Cells 0-2 /hpf (0-2) 08/08/24 20:08 08/08/24 17:52 Aerobic Blood Culture - Preliminary Blood No growth in Aerobic bottle after 24 hours. Anaerobic Blood Culture - Preliminary No growth in Anaerobic bottle after 24 hours. 08/08/24 17:59 Aerobic Blood Culture - Preliminary Blood No growth in Aerobic bottle after 24 hours. Anaerobic Blood Culture - Preliminary No growth in Anaerobic bottle after 24 hours. 08/08/24 20:08 Urine Culture - Preliminary Urine,Clean Catch No growth - Less than 1,000 colonies/mL, Final report to follow. 08/10/24 08:13 POC Glucose 163 H Electrocardiogram Date: 03/23/24 Findings: + NSR @ (with PACs) Echocardiogram Date: 03/24/24 EF: 65-70 Other Findings: + diastolic dysfunction (G1)
--- NOTE | 2024-08-10 08:51 | Urology Progress Note ---
Date of Service August 10, 2024 Assessment & Plan (1) Gross hematuria: (2) PAD (peripheral artery disease): (3) Sacral wound: (4) Hypothyroidism: (5) 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 diabetes mellitus: (6) Embolic stroke involving right middle cerebral artery: (7) Seizure-like activity: (8) Carotid artery disease: (9) Kidney stone: Plan Follow-up for gross hematuria Patient is afebrile, mildly hypotensive, otherwise stable vitals. Blood pressure is currently 102/62. Labs-WBCs 11.17, creatinine is 0.64. Hemoglobin has dropped down to 9.7. Had been at 10.3. Urine and blood cultures pending Patient still has persistent gross hematuria. Has some clot material in the tubing but does appear to be draining. Patient does not have severe pain but does have some spasms and discomfort. Patient had undergone CT urogram yesterday. Findings were concerning for possible severe thickening of the bladder with severe enlargement of the prostate. Possible debris versus blood versus other abnormality within the lumen of the bladder. Does have simple appearing cyst on the kidneys bilaterally. No stones were appreciated. Discussed different options with patient extensively. Additionally called patient's MPOA/medical decision making and discussed extensively current findings concerns issues and possible need for further assessment and intervention. Did review options to continue with irrigation and supportive care but did discuss that it may take a few days to weeks for this to clear completely as it has continued and also discussed the decrease in hemoglobin overnight. Additionally discussed options to finalize assessment with cystoscopy with possible intervention such as fulguration and clot evacuation depending on findings. Both patient and the MPOA were interested in this option especially with the patient's lingering bother and continued hematuria. Continue antibiotics and follow cultures Maintain Ware catheter, can hand irrigate as needed for clots, retention, suprapubic pain Continue supportive care Patient has been n.p.o. at midnight overnight. Patient's vitals and labs were all reviewed. Pertinent values in the HPI and plan section. Imaging was reviewed interpreted by myself. Patient completed CT urogram. This was reviewed. Does have thickening along the bladder with likely blood/clot within the lumen. No sign of mass or tumor of the kidneys. Does have irregular appearance but may be due to inflammation or irritation or clot. Catheter does appear to be in good position. Otherwise agree with read. Vitals were reviewed. Patient had been having some confusion yesterday after pain medication. Per nursing patient does have some waxing waning episodes of confusion. On the assessment this morning patient was alert and oriented again x 3. Was aware of current events and current issues as well as the previous planned monitoring and assessment and possible need for intervention today. Patient understood risk and benefits after discussion. Was interested in moving forward with cystoscopy especially wall actively hospitalized to both control of the issue as well as to determine the source of ongoing issues with bleeding. Has had significant issues in the past. Will maintain NPO. Discussed extensively with both patient and [facility] plans for possible cystoscopy with possible clot evacuation and fulguration. Reviewed risks and benefits. Will need to assess bladder for possible tumor or other bleeding lesion. Patient does appear to have an extremely large prostate may be the source of the ongoing bleeding. Patient significant burning irritation and bother likely secondary to the hematuria as well as possible infection and inflammation from the episodes of bleeding. Additionally the catheter may be contributing. Risks and benefits discussed at length for procedure. These include bleeding, infection, injury to surrounding tissues or organs, and risks associated with anesthesia. Patient states understanding and agrees to proceed. Will sign consent and schedule. Plan for cystoscopy with clot evacuation and possible fulguration Admission and Anticipated Discharge Date Admission Date: August 08, 2024 Subjective Patient admitted with gross hematuria, retention, and discomfort. Patient is afebrile. Has been undergoing supportive care and drainage with oral medications, IV medications, IV fluids, and oral intake. Patient has persistent issues with clot and hematuria. Has not had considerable increase in pain or major issues like fever. Has continued to have clot in urine. Has not developed severe vomiting or other issues. Has not experienced fever or chills. Has been tolerating oral medications. Patient was then made n.p.o. at midnight. Has noticed some spasms and discomfort with the sensation of frequency and urgency. Has not had severe pain in the back and flank. Does have occasional burning and irritation. No severe episodes or major changes. Review of Systems Review of Systems: All systems reviewed & are unremarkable except as noted in HPI & below Physical Exam Physical Exam: General: Alert in no acute distress. HEENT: Normocephalic Atraumatic. Inspection normal. Cranial Nerves 2-12 Grossly intact. Normal inspection of face. Normal inspection of neck. Psychologic: Normal affect. Respiratory: Nonlabored. No use of accessory muscles. No tachypnea or dyspnea. Cardiovascular: No tachycardia Skin: Ages and Dry. No rashes or visible lesions. Extremities/Lymphatics: No edema Abdomen: Soft Non-distended. No rebound or guarding. : Catheter in place draining dark red urine with mild clot Results & Data Vital Signs (Past 12 Hours) Vital Signs Temp Pulse Pulse Resp BP Pulse Ox O2 Del Method 08/10/24 07:15 36.7 C 70 18 102/62 95 Room Air 08/10/24 03:34 36.4 C L 74 18 106/73 93 Room Air 08/09/24 23:58 36.4 C L 67 18 111/69 95 Room Air 08/09/24 22:29 81 PG Care Time/CCT Total # of Minutes Spent Total Time Spent with Patient: Total time spent is greater than 50% in coordination of care (as documented) at patient's floor/unit and/or counseling patient: Coding Level of Care Code 20445 SUB INP/OBS CARE 3/50MIN Diagnoses Gross hematuria R31.0 PAD (peripheral artery disease) I73.9 Sacral wound S31.000A Hypothyroidism E03.9 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 diabetes mellitus E11.3299 Embolic stroke involving right middle cerebral artery I63.411 Seizure-like activity R56.9 Carotid artery disease I77.9 Kidney stone N20.0
[2024-08-10] MEDS: SODIUM CHLORIDE 0.9% 1,000 ML IV ONE (09:30)
[2024-08-10] MEDS ORDERED: PROPOFOL IV EMULSION 10 MG/ML 20 ML VIAL IV ONE (11:15)
[2024-08-10] MEDS ORDERED: LIDOCAINE 2% 2 ML VIAL/AMP(20MG/ML) INFIL ONE (11:15)
[2024-08-10] MEDS ORDERED: ONDANSETRON INJ 2 MG/ML 2 ML VIAL ONE (11:46)
--- NOTE | 2024-08-10 11:47 | Hospitalist Progress Note ---
Date of Service August 10, 2024 Assessment & Plan (1) Positive culture findings in wound: (2) Gross hematuria: (3) Sacral wound: (4) PAD (peripheral artery disease): (5) Type 2 diabetes mellitus: (6) Essential hypertension: (7) Dyslipidemia: (8) Hypothyroidism: Plan Patient is a 74 yr old wheelchair bound male with PMH significant for type 2 diabetes, hyperlipidemia, diabetic retinopathy, peripheral artery disease, atherosclerosis, history of embolic stroke involving right middle cerebral artery (Mar 2024), left-sided weakness, hypertension, hypothyroidism, bilateral internal carotid artery occlusions, mild to moderate aortic stenosis, urinary retention, chronic bilateral low back pain, GERD, BPH, constipation, 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 Right groin wound Right Foot Wound Sacral 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 Positive cultures PICC line dislodgement --S/P right groin debridement for superficial incisional dehiscence and LLE angiogram for PVD/left great toe gangrene on 07/25/[address] Ross - on 6 weeks of ertapenem after OR cultures grew staph and enterococcus --PICC removed and US guided PIV placed in ED --Blood cultures pending --Continue IV ertapenem 1g daily until end date of 08/16/2024 --Also was prescribed on 08/06/2024: fluconazole x3 days (completed), linezolid x4 days (ordered one more day), doxycycline x10 days (ordered until 08/16) -- Completed Linezolid course --Consider ID evaluation based on blood cultures --Continue wound care --Consulted vascular surgery as well Continue current management Gross hematuria Suspected complicated urinary tract infection In setting of dual antiplatelet therapy --CT ABD: Apparent increased attenuating contents within the bladder, which is incompletely distended, and contains a Ware catheter, possibly representing blood products. Thickening of the urinary bladder wall and mucosal hyperenhancement, as above, may be seen with cystitis. Markedly enlarged prostate gland. No renal or ureteral stone or renal mass. --S/P Cystoscopy with Cystolitholapaxy, Clot evacuation, Fulguration of bleeding prostatic Varicosities, and fulguration of bladder neck by on 08/10/24 --Blood culture: Negative to date --Urine culture--pending --Empirically on ertapenem, Zyvox as above Appreciate urology input Monitor H&H and transfuse as needed Avoid anticoagulation for now Continue Ware catheter Pyridium as needed Pressure ulcer of sacral region, at least Stage 2, POA WOCN consult Turn and reposition q2hr Pain control with Tylenol and morphine PRN PAD --S/P right groin debridement for superficial incisional dehiscence and LLE angiogram for PVD/left great toe gangrene on 07/25/[address] Ross --Continue baby aspirin and Plavix daily for vasculopathy --Continue Lipitor --Heel suspension boots --Wound care per vascular surgery: -Wash right foot daily, no soaking/submersion -Dankins soaked gauze packing amp site & open groin site, cover w/ DSD and light Kerlix wrap of right foot -Heal protector for right foot -Continue platform shoe -Melia left great toe w/ Betadine DM II On Jardiance, glimepiride, liraglutide, metformin at home - hold while hospitalized Continue insulin per protocol Monitor blood glucose levels Glycemic pharmacy consulted Hypertension BP relatively low on presentation Hold amlodipine for now Monitor blood pressure BP stable today Hyperlipidemia Continue atorvastatin and colesevelam Hypothyroidism Continue levothyroxine GERD Continue pantoprazole BPH Continue tamsulosin Severe malnutrition Will consult dietitian DVT Px: SQ Lovenox--held Re: Hematuria, anemia Code Status: FULL CODE PCP: Gabriele Dumas MD Admission and Anticipated Discharge Date Admission Date: August 08, 2024 Subjective Patient is seen and examined at bedside Hematuria improving Had urological procedure earlier today Discussed in detail with patient's son at bedside Reports right groin, sacral wound pain No other complaints today Review of Systems Review of Systems: All systems reviewed & are unremarkable except as noted in Subjective Physical Exam Physical Exam: Physical Exam: Vitals signs as noted above General Appearance:Moderately built and nourished, no apparent distress, chronic ill appearing Head: normocephalic, Atraumatic Eyes: normal inspection, EOMI Neck: supple, Trachea midline Respiratory/Chest: Normal breath sounds, CTA, No accessory muscle use Cardiovascular: S1, S2, No murmur Abdomen/GI:Soft, Non tender, Bowel sounds present Extremities/Musculoskeletal:normal inspection, no edema Neurologic/Psych:AAOX3, + Facial droop, minimal left sided weakness Skin: +R groin surgical wound, small sacral wound, R foot partial amputation, wound, Left great toe gangrenous, missing digits Results & Data Results & Data Vital Signs (Past 12 Hours) Vital Signs Temp Pulse Resp BP Pulse Ox O2 Del Method 08/10/24 07:15 36.7 C 70 18 102/62 95 Room Air 08/10/24 03:34 36.4 C L 74 18 106/73 93 Room Air 08/09/24 23:58 36.4 C L 67 18 111/69 95 Room Air Laboratory Results Short CBC 08/09/24 08/10/24 Range/Units 14:40 05:33 WBC 11.17 H (4.8-10.8) K/ul Hgb 10.1 L 9.7 L (14.0-18.0) g/dl Hct 32.6 L 31.1 L (42.0-52.0) % Plt Count 398 (130-400) K/uL BMP 08/10/24 05:33 Sodium 138 Potassium 4.4 Chloride 106 Carbon Dioxide 24 BUN 26 H Creatinine 0.64 Glucose 124 H Calcium 8.7
[2024-08-10] MEDS ORDERED: ONDANSETRON INJ 2 MG/ML 2 ML VIAL IV PRN (11:54)
[2024-08-10] MEDS ORDERED: ATROPINE SULFATE 0.1 MG/ML 10ML SYR IV PRN (11:54)
--- NOTE | 2024-08-10 13:06 | Operative Report ---
PG Post Operative Report Pre & Post Diagnosis Operation Date: 08/10/24 11:00 Pre-Op Diagnosis: Gross hematuria Post-Op Diagnosis: Gross hematuria Bladder Stones I identified the patient and participated in the time-out.: Yes Procedure Operation Date: 08/10/24 11:00 Actual Procedures Cystoscopy with Cystolitholapaxy, Clot evacuation, Fulguration of bleeding prostatic Varicosities, and fulguration of bladder neck - Cornell Hughes, Surgeon Cornell Hughes, II, DO Email Operations Manager None Estimated Blood Loss 5 Findings Consistent with Post-Op Diagnosis Large Prostate with obstruction. Severely enlarged lateral lobes. Large median lobe projecting into the bladder. Numerous bleeding varicosities throughout the prostatic urethra with severe inflamed and edematous changes within the prostatic urethra. Area of possible trauma in the region of the bulbar urethra possibly from previous stricture versus injury from catheter placement. No significant bleeding from site of previous trauma. Numerous bleeding varicosities along the bladder neck and coming off of the projecting median lobe. Large amount of blood clot in the base of the bladder. Numerous large stones within the base of the bladder. Stones appear to be soft possibly matrix/mucinous stones. Largest stone approximately 3.1 cm. Stones a yellow/pale color in appearance and appear to have areas of calcification. Were discovered under the large amount of blood clot within the base of the bladder Severe trabeculation throughout the bladder no sign of mass tumor lesion or other area of concern. Significant edematous and irritative changes along the bladder wall. Urethral erosion from chronic catheterization Specimens Bladder stones for stone analysis Drains 22Fr coud catheter Anesthesia Type General Complications none Disposition Disposition: Recovery Room Indications Patient with obstruction due to prostate enlargement and significant and symptomatic gross hematuria with clot retention. Risks and benefits discussed at length. Description of Procedure Patient was consented and brought back to the operating room. Patient was placed under anesthesia in the supine position and moved to the dorsal lithotomy position. Patient was prepped and draped in the regular sterile fashion. A time out was completed. A 30degree Cystoscope was placed into the bladder and the entire bladder was examined. The prostate was found to be massively enlarged. There appeared to be an area of previous trauma within the bulbar urethra possibly from catheter placement versus stricture. This appeared to be largely healed and there was no active bleeding. The large varicosities throughout the prostate were found to have multiple areas of bleeding. The scope was advanced a an extremely large median lobe with projection into the bladder was noted more significant bleeding was noted coming off of the median lobe. The bladder appeared to be largely filled with blood clots. There additionally appeared to be yellow appearing stones down below the blood clots. A clot evacuation was completed. Some of the smaller stone pieces were able to be evacuated with the clot. In the base of the bladder there were numerous stones discovered. The stones did appear to be soft and friable. Appeared to be more in line with mucinous or matrix stones. Did have areas of calcification along the edges of the stones. Small amount of additional dark purple clots were also appreciated still within the bladder lumen. The largest stone appeared to be approximately 3.1 cm in size. The bladder was inspected further no mass tumor lesion or other area concern were noted. There was significant projection of the prostate into the bladder. The UOs bilaterally appeared to be obstructed secondary to the stone material and debris and clot within the bladder. The larger stones were able to be destroyed. After the stones were destroyed the fragments and pieces were able to be evacuated out. The stone material appeared to be sheetlike in large chunks and pieces with a soft but gritty texture. The stone pieces were sent for analysis. A small amount of clot material also went with the stone. The bladder was inspected again. The UO's were identified as well as the bladder neck, trigone, dome, and the other important landmarks. The prostatic urethra and large lobes/adenoma was assessed and the veru and bladder neck identified and area/size was assessed. With the removal of the stone the clot and the debris the ureters appeared to be significantly draining. [place]-tinged urine was seen being expressed at a vigorous rate from the ureters bilaterally. The large median lobe did appear to obstruct the portion of the right ureter however both ureters were able to be identified. There was still persistent bleeding noted coming from the prostate the bladder neck and the prostatic median lobe projecting into the bladder. The resection scope was placed and the fine bipolar loop was selected. The fine bipolar loop was utilized to fulgurate and cauterize all of the areas of bleeding. The majority of the median lobe as well as portions of the lateral lobe of the anterior prostate and the portion of the median lobe projecting into the bladder all required fulguration from large bleeding varicosities. The area of trauma within the bulbar urethra was assessed there was no significant bleeding occurring from this. The bladder neck was inspected. There was areas of bleeding along the bladder neck especially in the anterior and lateral sides. These were also fulgurated. The bladder was inspected multiple times for the process. There was no significant bleeding tumors lesions ulcers or other areas concern within the bladder. There was significant trabeculation. There was also occasional diverticulum. Any bleeding areas were fulgurated/cauterized and the entire area inspected. All bleeding was controlled. The bladder was inspected a final time. The clot material have been cleared all debris as well. The large amount of irregular stone in the base was also able to be cleared and sent for analysis. The bleeding within the prostatic urethra and bladder neck had drastically improved with fulguration/cauterization. The bladder was emptied and irrigated. All specimen and debris was clear. There was no areas of active bleeding. The scope was removed with the bladder partially full. A 22 [place] coud catheter was placed and balloon elevated. This was easily ir rigated. The patient was cleaned, aroused from anesthesia, and transferred to the pacu in stable condition having tolerated the procedure well with no complications. I was present and participated in all aspects of the procedure. The patient will be monitored in the PACU until transferred. Plan to monitor on the floor. Will likely need to maintain catheter for approximately 3 to 5 days if bladder remains clear. May be able to try a trial of void while hospitalized. I attest to the content of the Intraoperative Record and any orders documented therein. Any exceptions are noted below.
--- NOTE | 2024-08-10 13:42 | Anesthesiology Progress Note ---
Date of Service August 10, 2024 Anesthesia Post Procedure Vital Signs Vital Signs: Temp Pulse Pulse Resp BP Pulse Ox O2 Del Method 08/10/24 13:35 98.1 F 67 20 130/67 94 Room Air 08/10/24 13:25 71 18 127/65 92 Room Air 08/10/24 13:15 65 15 133/74 90 Room Air 08/10/24 13:05 70 21 128/71 98 Oxymask 08/10/24 12:56 97.2 F L 67 12 139/84 96 Oxymask 08/10/24 09:00 72 08/10/24 07:15 98.1 F 70 18 102/62 95 Room Air 08/10/24 03:34 97.5 F L 74 18 106/73 93 Room Air 08/09/24 23:58 97.5 F L 67 18 111/69 95 Room Air 08/09/24 22:29 81 08/09/24 20:00 99.1 F 71 16 110/75 95 Room Air 08/09/24 19:59 Room Air 08/09/24 15:43 98.6 F 75 16 109/70 95 Room Air 08/09/24 14:59 81 O2 Flow Rate 08/10/24 13:35 08/10/24 13:25 08/10/24 13:15 08/10/24 13:05 3 08/10/24 12:56 3 08/10/24 09:00 08/10/24 07:15 08/10/24 03:34 08/09/24 23:58 08/09/24 22:29 08/09/24 20:00 08/09/24 19:59 08/09/24 15:43 08/09/24 14:59 Pain Intensity Right Groin: Pain Intensity: 6 Sacrum: Pain Intensity: 10 Penis: Pain Intensity: 10 Transfer of Care Handoff Completed per policy Notes Mental Status: alert / awake / arousable and participated in evaluation Patient Amnestic to Procedure: Yes Nausea / Vomiting: adequately controlled Pain: adequately controlled Airway Patency, RR, SpO2: stable & adequate BP & HR: stable & adequate Hydration State: stable & adequate Anesthetic Complications: no major complications apparent and Pt Satisfied with anesthetic care
[2024-08-10] MEDS: PHENAZOPYRIDINE HCL 200 MG TAB PO PRN (14:01)
[2024-08-10] MEDS: LIDOCAINE 2% JELLY 5 ML TUBE EXT PRN (16:00)
[2024-08-11 06:13] LABS: Hematocrit (blood only) 32.2 % (42.0-52.0); Hemoglobin 9.8 g/dl (14.0-18.0); Mean Corpuscular Hemoglobin 27.3 pg (25.0-34.0); Mean Corpuscular Volume 89.7 fL (80.0-100.0); Platelet Count 382 K/uL (130-400); RDW Standard Deviation 52.4 fL (36.4-46.3); Red Blood Count 3.59 M/uL (4.70-6.10); White Blood Count 12.36 K/ul (4.8-10.8)
[2024-08-11 06:33] LABS: Anion Gap 5.0 (3-11); Blood Urea Nitrogen 25.0 mg/dl (6-23); Calcium 8.7 mg/dl (8.6-10.3); Carbon Dioxide 26.0 mmol/L (21-32); Chloride 107.0 mmol/L (98-107); Creatinine Clr Calc Pharmacy 130.7 ml/min; Glucose 131.0 mg/dl (70-99(Fasting)); Potassium 4.5 mmol/L (3.5-5.1); Sodium 138.0 mmol/L (136-145)
--- NOTE | 2024-08-11 07:35 | Urology Progress Note ---
Date of Service August 11, 2024 Assessment & Plan (1) Gross hematuria: (2) PAD (peripheral artery disease): (3) Sacral wound: (4) Hypothyroidism: (5) 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 diabetes mellitus: (6) Embolic stroke involving right middle cerebral artery: (7) Seizure-like activity: (8) Carotid artery disease: Plan Postop day 1 status post clot evacuation, destruction and extraction of bladder stones, and fulguration of bleeding prostatic varicosities for gross hematuria Patient is afebrile, mildly hypotensive, otherwise stable vitals. Vitals are overall stable with blood pressure borderline hypotension of 100/64 White count had mildly elevated to 12.36. Creatinine is 0.52. Hemoglobin has stabilized with mild increase to 9.8 Since surgery patient has been monitored for worsening hematuria. Appears to have been improving. Has not had significant clot material. Patient was having some discomfort. Does have continued burning major complaint has always been burning spasms and irritation with urethral irritation being a major bother. Does appear to improved since intervention. Patient was found to have numerous soft matrix appearing stones within the base of the bladder additionally had moderate amount of blood clot still within the bladder. Had numerous areas of bleeding along the bladder neck and within the prostatic urethra. Prostate appeared to be severely inflamed with extremely large varicosities and active bleeding. After procedure had discussed with both patient and MPOA findings. Has been monitored with a [address] [place] imaging had been reviewed with patient and notes findings of mass or tumor on the kidney. Catheter does appear to be in good position. Otherwise agree with read. Vitals were reviewed. Patient does have occasional issues with confusion usually after utilization of stronger pain meds. Has been alert and oriented on all evaluations by myself however. Will plan to monitor catheter over the next couple days. If improving may be able to trial removal. Discussed continued monitoring moving forward. Patient likely will continue with close supportive care and monitoring and hydration. Patient being monitored by the hospitalist team. Additionally will need to monitor for worsening or redevelopment of significant clots or obstruction. Patient had previously been following with [facility] urology. Had planned to undergo cystoscopy and gross hematuria workup in the future with active and severe bleed had elected to move forward with it while hospitalized. Will continue to monitor patient. Has not had full improvement but has mildly stabilized. Will need to continue to monitor closely. Analysis from stone should be available in the coming weeks. Likely major problem is severe prostate enlargement with massive varicosities. May need to discuss possible interventions such as Rezum or other intervention in order to manage severe prostate enlargement. Urine is completely clear at this point no signs of blood or clot. Drastically improved since procedure Still has considerable bother along the glans and urethra but may be due to inflammation from severe prostatitis/bleeding Admission and Anticipated Discharge Date Admission Date: August 08, 2024 Subjective Patient admitted with gross hematuria, retention, and discomfort. Patient is afebrile. Has been undergoing supportive care and drainage with oral medications, IV medications, IV fluids, and oral intake. Patient has persistent issues with clot and hematuria. Has not had considerable increase in pain or major issues like fever. Has continued to have clot in urine. Has not developed severe vomiting or other issues. Has not experienced fever or chills. Has been tolerating oral medications. Patient was then made n.p.o. at midnight. Has noticed some spasms and discomfort with the sensation of frequency and urgency. Has not had severe pain in the back and flank. Does have occasional burning and irritation. No severe episodes or major changes. Review of Systems Review of Systems: All systems reviewed & are unremarkable except as noted in HPI & below Physical Exam Physical Exam: General: Alert in no acute distress. HEENT: Normocephalic Atraumatic. Inspection normal. Cranial Nerves 2-12 Grossly intact. Normal inspection of face. Normal inspection of neck. Psychologic: Normal affect. Respiratory: Nonlabored. No use of accessory muscles. No tachypnea or dyspnea. Cardiovascular: No tachycardia Skin: [place] and Dry. No rashes or visible lesions. Extremities/Lymphatics: No edema Abdomen: Soft Non-distended. No rebound or guarding. : Catheter in place draining clear yellow urine, no clot. No sign of active hematuria. Results & Data Vital Signs (Past 12 Hours) Vital Signs Temp Pulse Resp BP Pulse Ox O2 Del Method 08/11/24 03:17 36.6 C 65 20 100/64 94 Room Air 08/10/24 23:25 36.5 C 68 19 116/75 96 Room Air 08/10/24 20:01 37.3 C 72 20 104/68 96 Room Air 08/10/24 19:58 Room Air PG Care Time/CCT Total # of Minutes Spent Total Time Spent with Patient: Total time spent is greater than 50% in coordination of care (as documented) at patient's floor/unit and/or counseling patient: Coding Level of Care Code 37296 SUB INP/OBS CARE 350MIN Diagnoses Gross hematuria R31.0 PAD (peripheral artery disease) I73.9 Sacral wound S31.000A Hypothyroidism E03.9 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 diabetes mellitus E11.3299 Embolic stroke involving right middle cerebral artery I63.411 Seizure-like activity R56.9 Carotid artery disease I77.9
[2024-08-11] MEDS: SODIUM CHLORIDE 0.9% 1,000 ML IV ONE (08:40)
[2024-08-11] MEDS ORDERED: FLUCONAZOLE 100 MG TAB PO SCH ×2 (11:45→21:00)
--- NOTE | 2024-08-11 14:50 | Hospitalist Progress Note ---
Date of Service August 11, 2024 Assessment & Plan (1) Positive culture findings in wound: (2) Gross hematuria: (3) Sacral wound: (4) PAD (peripheral artery disease): (5) Type 2 diabetes mellitus: (6) Essential hypertension: (7) Dyslipidemia: (8) Hypothyroidism: Plan Patient is a 74 yr old wheelchair bound male with PMH significant for type 2 diabetes, hyperlipidemia, diabetic retinopathy, peripheral artery disease, atherosclerosis, history of embolic stroke involving right middle cerebral artery (Mar 2024), left-sided weakness, hypertension, hypothyroidism, bilateral internal carotid artery occlusions, mild to moderate aortic stenosis, urinary retention, chronic bilateral low back pain, GERD, BPH, constipation, 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 Right groin wound Right Foot Wound Sacral 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 Positive cultures PICC line dislodgement --S/P right groin debridement for superficial incisional dehiscence and LLE angiogram for PVD/left great toe gangrene on 07/25/[address] Ross - on 6 weeks of ertapenem after OR cultures grew staph and enterococcus --PICC removed and US guided PIV placed in ED --Blood cultures: Negative to date --Continue IV ertapenem 1g daily until end date of 08/16/2024 --Also was prescribed on 08/06/2024: fluconazole x3 days (completed), linezolid x4 days (ordered one more day), doxycycline x10 days (ordered until 08/16) -- Completed Linezolid course --Continue wound care --Consulted vascular surgery as well Gross hematuria Suspected complicated urinary tract infection Severe enlarged prostate with massive varicosities--POA In setting of dual antiplatelet therapy --CT ABD: Apparent increased attenuating contents within the bladder, which is incompletely distended, and contains a Ware catheter, possibly representing blood products. Thickening of the urinary bladder wall and mucosal hyperenhancement, as above, may be seen with cystitis. Markedly enlarged prostate gland. No renal or ureteral stone or renal mass. --S/P Cystoscopy with Cystolitholapaxy, Clot evacuation, Fulguration of bleeding prostatic Varicosities, and fulguration of bladder neck by on 08/10/24 --Blood culture: Negative to date --Urine culture--growing Jyoti --Empirically on ertapenem, Zyvox as above Appreciate urology input: Consideration for Rezum procedure, voiding trial as able Monitor H&H and transfuse as needed Avoid anticoagulation for now Continue Ware catheter Pyridium as needed Started on fluconazole Will consider ID evaluation Urology following Pressure ulcer of sacral region, at least Stage 2, POA WOCN consult Turn and reposition q2hr Pain control with Tylenol and morphine PRN PAD --S/P right groin debridement for superficial incisional dehiscence and LLE angiogram for PVD/left great toe gangrene on 07/25/[address] Ross --Continue baby aspirin and Plavix daily for vasculopathy --Continue Lipitor --Heel suspension boots --Wound care per vascular surgery: -Wash right foot daily, no soaking/submersion -Dankins soaked gauze packing amp site & open groin site, cover w/ DSD and light Kerlix wrap of right foot -Heal protector for right foot -Continue platform shoe -[place] left great toe w/ Betadine DM II On Jardiance, glimepiride, liraglutide, metformin at home - hold while hospitalized Continue insulin per protocol Monitor blood glucose levels Glycemic pharmacy consulted Hypertension BP low Hold amlodipine for now Monitor blood pressure Hyperlipidemia Continue atorvastatin and colesevelam Hypothyroidism Continue levothyroxine GERD Continue pantoprazole BPH Continue tamsulosin Severe malnutrition Consulted dietitian DVT Px: SQ Lovenox--held Re: Hematuria, anemia Code Status: FULL CODE PCP: Gabriele Dumas MD Admission and Anticipated Discharge Date Admission Date: August 08, 2024 Subjective Patient is seen and examined at bedside States feeling lot better today Hematuria significantly improved Patient still has some dysuria Urine culture growing Jyoti Reports right groin, sacral wound pain is better Offers no other complaints today Review of Systems Review of Systems: All systems reviewed & are unremarkable except as noted in Subjective Physical Exam Physical Exam: Physical Exam: Vitals signs as noted above General Appearance:Moderately built and nourished, no apparent distress, chronic ill appearing Head: normocephalic, Atraumatic Eyes: normal inspection, EOMI Neck: supple, Trachea midline Respiratory/Chest: Normal breath sounds, CTA, No accessory muscle use Cardiovascular: S1, S2, No murmur Abdomen/GI:Soft, Non tender, Bowel sounds present Extremities/Musculoskeletal:normal inspection, no edema Neurologic/Psych:AAOX3, + Facial droop, minimal left sided weakness Skin: +R groin surgical wound, small sacral wound, R foot partial amputation, wound, Left great toe gangrenous, missing digits Results & Data Results & Data Vital Signs (Past 12 Hours) Vital Signs Temp Pulse Pulse Resp BP Pulse Ox O2 Del Method 08/11/24 12:00 37.1 C 74 18 105/69 94 Room Air 08/11/24 08:00 70 08/11/24 08:00 37.0 C 72 16 111/73 94 Room Air 08/11/24 03:17 36.6 C 65 20 100/64 94 Room Air Laboratory Results Short CBC 08/11/24 Range/Units 05:49 WBC 12.36 H (4.8-10.8) K/ul Hgb 9.8 L (14.0-18.0) g/dl Hct 32.2 L (42.0-52.0) % Plt Count 382 (130-400) K/uL BMP 08/11/24 05:49 Sodium 138 Potassium 4.5 Chloride 107 Carbon Dioxide 26 BUN 25 H Creatinine 0.52 L Glucose 131 H Calcium 8.7
[2024-08-11] MEDS: FLUCONAZOLE 100 MG TAB PO SCH (20:30)
[2024-08-12 06:28] LABS: Hematocrit (blood only) 31.4 % (42.0-52.0); Hemoglobin 9.9 g/dl (14.0-18.0); Mean Corpuscular Hemoglobin 28.0 pg (25.0-34.0); Mean Corpuscular Volume 88.7 fL (80.0-100.0); Platelet Count 369 K/uL (130-400); RDW Standard Deviation 51.5 fL (36.4-46.3); Red Blood Count 3.54 M/uL (4.70-6.10); White Blood Count 10.39 K/ul (4.8-10.8)
[2024-08-12 06:58] LABS: Anion Gap 8.0 (3-11); Blood Urea Nitrogen 22.0 mg/dl (6-23); Calcium 8.4 mg/dl (8.6-10.3); Carbon Dioxide 24.0 mmol/L (21-32); Chloride 106.0 mmol/L (98-107); Creatinine Clr Calc Pharmacy 151.1 ml/min; Glucose 121.0 mg/dl (70-99(Fasting)); Potassium 3.9 mmol/L (3.5-5.1); Sodium 138.0 mmol/L (136-145)
--- NOTE | 2024-08-12 11:29 | Urology Progress Note ---
Date of Service August 12, 2024 Assessment & Plan (1) Gross hematuria: Plan: POD #2 s/p Cystoscopy with Cystolitholapaxy, Clot evacuation, Fulguration of bleeding prostatic Varicosities, and fulguration of bladder neck Patient afebrile with stable vitals Labs reviewedcreatinine 0.45, WBC 10.39, hemoglobin 9.9 Urine culture 08/08 with Jyoti glabrata Blood cultures 08/08 prelim with no growth to date Currently on ertapenem and fluconazole Await final urine culture and narrow per sensitivity data when available Consider ID consultation regarding Jyoti glabrata Maintain catheter for approximately 3 to 5 days Can consider trial of void while hospitalized if urine remains clear; replace catheter if unable to void or elevated PVR Continue supportive care and medical management per hospital medicine service Will arrange outpatient follow-up with our service or patient can continue care with [facility] urology for ongoing management will sign off, please consult our service with any additional questions or concerns Admission and Anticipated Discharge Date Admission Date: August 08, 2024 Subjective Patient seen and examined at bedside No acute issues overnight Notes mild dysuria, improved today Ware draining yellow urine, with some sediment/debris No fever or chills Review of Systems Review of Systems: All systems reviewed & are unremarkable except as noted in HPI & below Physical Exam Constitutional: no acute distress Respiratory: normal respiratory effort; no respiratory distress and no labored breathing Musculoskeletal: Head/Neck/Chest: normocephalic Neurologic: moves all extremities and awake Psychiatric: Orientation: alert and oriented x 3 Genitourinary: Ware draining with clear yellow, small amount of sediment and debris in tubing Results & Data Vital Signs (Past 12 Hours) Vital Signs Temp Pulse Pulse Pulse Resp BP Pulse Ox 08/12/24 11:06 37.1 C 90 18 112/64 92 08/12/24 08:15 36.5 C 76 18 137/71 94 08/12/24 08:00 60 08/12/24 04:00 36.4 C L 57 L 17 131/72 94 08/12/24 00:00 60 O2 Del Method 08/12/24 11:06 Room Air 08/12/24 08:15 Room Air 08/12/24 08:00 08/12/24 04:00 Room Air 08/12/24 00:00 PG Care Time/CCT Total # of Minutes Spent Total Time Spent with Patient: Total time spent is greater than 50% in coordination of care (as documented) at patient's floor/unit and/or counseling patient: Coding Level of Care Code 87632 SUB INP/OBS CARE 2/35MIN Diagnoses Gross hematuria R31.0
[2024-08-12] MEDS: DOCUSATE SODIUM 100 MG CAP PO SCH (12:39)
[2024-08-12] MEDS: POLYETHYLENE (MIRALAX) 17 GM PACK PO PRN (12:39)
--- NOTE | 2024-08-12 13:41 | Hospitalist Progress Note ---
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 Right groin wound Right Foot Wound Sacral 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 Positive cultures PICC line dislodgement --S/P right groin debridement for superficial incisional dehiscence and LLE angiogram for PVD/left great toe gangrene on 07/25/[address] Ross - on 6 weeks of ertapenem after OR cultures grew staph and enterococcus --PICC removed and US guided PIV placed in ED --Blood cultures: Negative to date --Continue IV ertapenem 1g daily until end date of 08/16/2024 --Also was prescribed on 08/06/2024: fluconazole x3 days (completed), linezolid x4 days (ordered one more day), doxycycline x10 days (ordered until 08/16) -- Completed Linezolid course --Continue wound care --Consulted vascular surgery:await for input -- Needs follow-up with primary vascular surgeon as outpatient on discharge Gross hematuria Suspected complicated urinary tract infection Severe enlarged prostate with massive varicosities--POA In setting of dual antiplatelet therapy --CT ABD: Apparent increased attenuating contents within the bladder, which is incompletely distended, and contains a Ware catheter, possibly representing blood products. Thickening of the urinary bladder wall and mucosal hyperenhancement, as above, may be seen with cystitis. Markedly enlarged prostate gland. No renal or ureteral stone or renal mass. --S/P Cystoscopy with Cystolitholapaxy, Clot evacuation, Fulguration of bleeding prostatic Varicosities, and fulguration of bladder neck by on 08/10/24 --Blood culture: Negative to date --Urine culture--growing Jyoti --on ertapenem as above Appreciate urology input: Consideration for Rezum procedure, voiding trial as able Monitor H&H and transfuse as needed Avoid anticoagulation for now Continue Ware catheter Pyridium as needed Continue fluconazole Hematuria seems to be resolved Will consider ID evaluation pending cultures Needs follow-up with urology on discharge Pressure ulcer of sacral region, at least Stage 2, POA WOCN consult Turn and reposition q2hr Pain control with Tylenol and morphine PRN PAD --S/P right groin debridement for superficial incisional dehiscence and LLE angiogram for PVD/left great toe gangrene on 07/25/[address] Ross --Continue baby aspirin and Plavix daily for vasculopathy --Continue Lipitor --Heel suspension boots --Wound care per vascular surgery: -Wash right foot daily, no soaking/submersion -Dankins soaked gauze packing amp site & open groin site, cover w/ DSD and light Kerlix wrap of right foot -Heal protector for right foot -Continue platform shoe -[place] left great toe w/ Betadine -Vascular surgery consulted DM II On Jardiance, glimepiride, liraglutide, metformin at home - hold while hospitalized Continue insulin per protocol Monitor blood glucose levels Glycemic pharmacy consulted Hypertension BP low Hold amlodipine for now Monitor blood pressure BP stable off meds H/O CVA Continue aspirin, Plavix, statin Hyperlipidemia Continue atorvastatin and colesevelam Hypothyroidism Continue levothyroxine GERD Continue pantoprazole BPH Continue tamsulosin Severe malnutrition Consulted dietitian DVT Px: SQ Lovenox--held Re: Hematuria, anemia Code Status: FULL CODE PCP: Gabriele Dumas MD Admission and Anticipated Discharge Date Admission Date: August 08, 2024 Subjective Patient is seen and examined at bedside Subjectively feels a lot better today Dysuria much improved Still has some discomfort at sacral wound region Urine culture still pending Hematuria seems to be resolved Denies any chest pain, dyspnea, nausea, vomiting, abdominal pain Review of Systems Review of Systems: All systems reviewed & are unremarkable except as noted in Subjective Physical Exam Physical Exam: Physical Exam: Vitals signs as noted above General Appearance:Moderately built and nourished, no apparent distress, chronic ill appearing Head: normocephalic, Atraumatic Eyes: normal inspection, EOMI Neck: supple, Trachea midline Respiratory/Chest: Normal breath sounds, CTA, No accessory muscle use Cardiovascular: S1, S2, No murmur Abdomen/GI:Soft, Non tender, Bowel sounds present Extremities/Musculoskeletal:normal inspection, no edema Neurologic/Psych:AAOX3, + Facial droop, minimal left sided weakness Skin: +R groin surgical wound, small sacral wound, R foot partial amputation, wound, Left great toe gangrenous, missing digits Results & Data Results & Data Vital Signs (Past 12 Hours) Vital Signs Temp Pulse Pulse Pulse Resp BP Pulse Ox 08/12/24 11:06 37.1 C 90 18 112/64 92 08/12/24 08:15 36.5 C 76 18 137/71 94 08/12/24 08:00 60 08/12/24 04:00 36.4 C L 57 L 17 131/72 94 O2 Del Method 08/12/24 11:06 Room Air 08/12/24 08:15 Room Air 08/12/24 08:00 08/12/24 04:00 Room Air Laboratory Results Short CBC 08/12/24 Range/Units 05:28 WBC 10.39 (4.8-10.8) K/ul Hgb 9.9 L (14.0-18.0) g/dl Hct 31.4 L (42.0-52.0) % Plt Count 369 (130-400) K/uL BMP 08/12/24 05:28 Sodium 138 Potassium 3.9 Chloride 106 Carbon Dioxide 24 BUN 22 Creatinine 0.45 L Glucose 121 H Calcium 8.4 L
[2024-08-12] MEDS: OPTIRAY 320 125ml IV ONE (16:23)
--- NOTE | 2024-08-12 18:51 | CT Scan Report ---
CT ANGIOGRAM of the RIGHT LOWER EXTREMITY Indication: Lower extremity pain IV CONTRAST: 100 mL of OMNIPAQUE 300 COMPARISON: None. FINDINGS: The examination demonstrates extensive atherosclerosis of the arterial vasculature supplying the right lower extremity. No hemodynamically significant stenosis is seen within the included abdominal aorta, bilateral common iliac and external iliac arteries. There appears to be a bypass graft arising from the distal most common femoral artery that travels medially along the right thigh which appears largely patent with stenoses noted in the plantar aspect of the foot. Extensive atherosclerosis of the right superficial femoral artery results in multifocal severe stenoses. More significant and extensive atherosclerosis of the infrapopliteal arteries result in occlusive to near occlusive changes of the posterior tibial, peroneal and anterior tibial arteries. Assessment for patency of the infrapopliteal arteries at the level of the proximal tibia and fibula and distally is difficult due to extensive calcified atherosclerotic plaques. In the right foot, the patient is status post amputation of the hallux at the level of the TMT and transmetatarsal amputations of the remaining digits. There is a large ulceration abutting the hallux amputation stump where there are erosions of the remnant tarsal bones. Additional erosive changes of the bones with abutting soft tissue inflammation in the 2nd and 3rd digit amputation sites. Enlarged prostate gland resulting urinary bladder outlet obstruction. Ware catheter is in place. The urinary bladder demonstrates inflammatory changes. There is ulcerative skin defect in the right groin IMPRESSION: Extensive atherosclerotic involvement of the right lower extremity arterial vasculature as detailed above. Multifocal severe stenoses are present within the superficial right femoral artery with occlusive to near occlusive changes of the infrapopliteal arteries. There appears to be a bypass graft arising from the distalmost common femoral artery on the right side that is largely patent with severe multifocal stenoses seen in the plantar aspect of the right foot. Status post multiple amputations of the right foot with osteomyelitis of the hallux, the 2nd and 3rd digits at the amputation stumps. Prostamegaly and urinary bladder outlet obstruction. Ware catheter is in place. Intense inflammation of the urinary bladder suggests cystitis. Electronically signed by Be Johnson 08-12-2024 6:51 PM
[2024-08-12] MEDS: ACETAMINOPHEN 325 MG TAB PO PRN (20:20)
[2024-08-13] MEDS: LANTUS PER UNIT CHARGE SC SCH (09:26)
--- NOTE | 2024-08-13 10:12 | Consultation ---
Date of Consultation August 13, 2024 Assessment & Plan (1) PAD (peripheral artery disease): Pt with significant PAD, underwent revascularization and RLE TMA at [facility] about 6 wks ago. RLE bypass patent, LLE + palpable DP pulse and good doppler signals. No indications for acute vascular intervention at this time. Recommend pt follow up with his vascular surgeon as directed. R foot infection/osteomyelitis can be eval by podiatry or orthopedics if needed. If orthopedic intervention required for the R foot, do not use tourniquet d/t long bypass to posterior tib at ankle. Please call if needed. History of Present Illness Reason for Consultation: PAD Attending Physician: Paul Kearney MD History of Present Illness 74 yo m with hx of PAD, CAD, HTN, hyperlipidemia, DMII, anemia, neuropathy, hypothyroidism, admitted with hematuria, seen in consultation for PAD. Pt with previous hx of RLE fem-distal posterior tibial artery reverse saphenous vein bypass and RLE TMA in early June at [facility] by Dr Seng Chan. He underwent LLE angio with intervention 1-2 wks later d/t black eschar on L great toe. Has been recovering at [facility] post op and was discharged home for 1 day before he noted multiple carol red hematuria with blood clots and came to [facility] for eval. Pt denies any new complaints or concerns regarding his feet or toes, states they are similar in appearance over past few weeks. Pt states he has a follow up appt with his vascular surgeon sometime in next few days. Pt denies BORREGO, fever, chest pain, SOB, adb pain, N\V, rest pain, other new complaints. States his hematuria is resolved since procedure by urology. CTA RLE demonstrates patent BPG. No arterial US performed. 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 LAUNDRY DETERGENT AT Allergy Severe SEVERE Uncoded 08/08/24 17:21 [place] [facility] Home Medications Medication Instructions Recorded Confirmed Type amlodipine 5 mg tablet 5 mg PO QAM 03/23/24 08/08/24 History aspirin 81 mg tablet,delayed 81 mg PO QAM 03/23/24 08/08/24 History release glimepiride 4 mg tablet 4 mg PO BID 03/23/24 08/08/24 History liraglutide 0.6 mg/0.1 mL (18 mg/3 1.8 mg subcut QAM 03/23/24 08/08/24 History mL) subcutaneous pen injector metformin 500 mg tablet,extended 1,500 mg PO QAM 03/23/24 08/08/24 History release 24 hr oxycodone 5 mg tablet 5 mg PO BID PRN Pain, Severe 03/23/24 08/08/24 History Phenol Liquid [place] 1 spray mucous membrane Q4H 08/08/24 08/08/24 History acetaminophen 325 mg tablet 650 mg PO Q6H PRN PAIN/FEVER 08/08/24 08/08/24 History (Tylenol) atorvastatin 40 mg tablet 40 mg PO QAM 08/08/24 08/08/24 History bisacodyl 10 mg rectal suppository 10 mg OK DAILY PRN Constipation 08/08/24 08/08/24 History calcium carbonate (Tums E-X) 300 mg PO Q6H PRN Heartburn 08/08/24 08/08/24 History clopidogrel 75 mg tablet (Plavix) 75 mg PO QAM 08/08/24 08/08/24 History colesevelam 625 mg tablet (WelChol) 625 mg PO BIDM 08/08/24 08/08/24 History dibucaine 1 % topical ointment 1 applic topical BID 08/08/24 08/08/24 History docusate sodium 100 mg capsule 100 mg PO BID PRN Constipation 08/08/24 08/08/24 History doxycycline hyclate 100 mg tablet 100 mg PO BID 08/08/24 08/08/24 History empagliflozin 25 mg tablet 25 mg PO QAM 08/08/24 08/08/24 History (Jardiance) ertapenem 1 gram solution for 1 g IV DAILY 08/08/24 08/08/24 History injection ferrous sulfate 325 mg (65 mg 325 mg PO TIDM 08/08/24 08/08/24 History iron) tablet fluconazole 100 mg tablet 100 mg PO DAILY 08/08/24 08/08/24 History gabapentin 100 mg capsule 100 mg PO .BID QAM & AFTERNOON 08/08/24 08/08/24 History gabapentin 300 mg capsule 600 mg PO HS 08/08/24 08/08/24 History guar gum 1 tbsp PO DAILY 08/08/24 08/08/24 History heparin, porcine (PF) 5,000 5,000 unit subcut TID 08/08/24 08/08/24 History unit/mL injection syringe hydrocortisone acetate 25 mg 25 mg OK BID PRN Hemorrhoids 08/08/24 08/08/24 History rectal suppository (Anusol-HC) insulin lispro 100 unit/mL 1 sliding scale dose subcut 08/08/24 08/08/24 History subcutaneous solution USEASDIRECTD levothyroxine 25 mcg tablet 25 mcg PO DAILYBB 08/08/24 08/08/24 History lidocaine HCl 2 % topical gel 1 applic topical Q8H PRN APPLY TO 08/08/24 History PENIS NEEDED linezolid 600 mg tablet 600 mg PO DIRECTED 08/08/24 08/08/24 History melatonin 3 mg tablet 3 mg PO HS 08/08/24 08/08/24 History methocarbamol 500 mg tablet 500 mg PO BID 08/08/24 08/08/24 History pantoprazole 40 mg tablet,delayed 40 mg PO DAILY 08/08/24 08/08/24 History release polyethylene glycol 3350 17 17 g PO QPM 08/08/24 08/08/24 History gram/dose oral powder (Miralax) sennosides 8.6 mg tablet (senna) 8.6 mg PO BID 08/08/24 08/08/24 History sennosides 8.6 mg-docusate sodium 2 tab-cap PO QDL 08/08/24 08/08/24 History 50 mg tablet (Senna Plus) silver sulfadiazine 1 % topical 1 applic topical DAILY 08/08/24 08/08/24 History cream (Silvadene) sodium chloride 0.9 % (flush) 10 ml IV Q12H 08/08/24 08/08/24 History (Normal Saline Flush 0.9 % injection syringe) sodium hypochlorite 0.25 % solution 1 applic topical Q8H 08/08/24 08/08/24 History tamsulosin 0.4 mg capsule (Flomax) 0.4 mg PO HS 08/08/24 08/08/24 History Patient History Medical History Hypothyroidism 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 diabetes mellitus ICAO (internal carotid artery occlusion) bilateral Essential hypertension Guillain-[place] syndrome after administration of vaccine Dyslipidemia Embolic stroke involving right middle cerebral artery Osteomyelitis of ankle or foot, right, acute Presence of IVC filter Seizure-like activity Type 2 diabetes mellitus Carotid artery disease Kidney stone Surgical History S/P IVC filter History of thrombectomy S/P debridement multiple 07/25/24 right groin incision 07/02/24, 05/16/24 S/P femoral-tibial bypass S/P tonsillectomy S/P total hip arthroplasty S/P cataract surgery 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 Family History Other Cancer Diabetes Heart disease Social History Smoking Status: Never smoker Hx Alcohol Use: No Hx Substance Use: No Preferred Language: Moroccan Communication Ability: Effective Paraeducator Required: No Beliefs That Will Affect Care: None Current Living Situation: Other Current Living Situation Comment: Lives w/ friend/POA/caregiver Seng Rasmussen Other Information That Helps Us Care for You: No Feels Safe at Home: Yes Safety Concerns: Feels Safe At This Time Assistive Devices: Hospital Bed, Walker and Wheelchair Review of Systems Review of Systems: All systems reviewed & are unremarkable except as noted in HPI & below Physical Exam Constitutional: WD/WN, vitals as above + frail appearing, cooperative and comfortable; not in distress Respiratory: normal respiratory effort, lungs clear to auscultation Auscultation: + diminished lung sounds Cardiovascular: Rate/Rhythm: regular rate and regular rhythm Vessels: femoral pulses present (LLE +3, RLE not palpated d/t large open wound), posterior tibial pulses present (dopplerable BLE), dorsalis pedis pulses present (+1 LLE, faint doppler RLE) and radial pulses present; + abnormal peripheral pulses L great toe with dry eschar to tip, no erythema RLE surgical wounds healing, R groin open wound with healthy granulation R foot wound with erythema and granulation Gastrointestinal (Abdomen): Inspection/Auscultation: abdomen normal to inspection and normal bowel sounds Percussion/Palpation: abdomen soft; abdomen nontender Musculoskeletal: Extremities: strength 5/5 throughout RLE TMA noted, LLE 2nd, 4th, 5th toe surgically absent. Skin: no rashes, warm and dry (see above) Neurologic: moves all extremities and awake; no focal motor deficits and not confused Psychiatric: A+Ox3, euthymic affect Results & Data Vital Signs (Past 12 Hours) Vital Signs Temp Pulse Pulse Resp BP Pulse Ox O2 Del Method 08/13/24 08:27 36.3 C L 66 16 119/79 95 Room Air 08/13/24 07:55 56 L 08/13/24 03:27 36.5 C 67 16 100/62 95 Room Air 08/13/24 00:00 62 08/12/24 23:23 36.6 C 83 20 98/61 L 95 Room Air
--- NOTE | 2024-08-13 14:09 | Pharmacy Report ---
Pharmacy Glycemic Short Note 2 - Date of Service August 13, 2024 - Glycemic Short BSG Results (Last 24 hours): 08/12/24 08/12/24 08/13/24 16:02 20:45 08:12 POC Glucose 187 H 169 H 157 H 08/13/24 12:03 POC Glucose 170 H OUTPATIENT ANTIDIABETIC REGIMEN: * Humalog SSI * Empagliflozin 25 mg PO daily * Glimepiride 4 mg PO BID * Metformin 1500 mg PO daily HbA1c: 8% (03/23/24), reordered for 08/10/24 ASSESSMENT: 08/13: * Reji received 29 units of insulin yesterday (5 were basal) * Fasting BSG this AM acceptable, but elevated, will trial twice daily basal for a more even basal bolus regimen and to assist with post prandials * NovoLog carbohydrate ratio tightened slightly yesterday, will continue at this time. * He continues on Invanz as well as doxycycline PO and fluconazole PO. 08/09: * LUIS is a 74 year old male who presented to ED yesterday following recent discharge from [facility] now with gross hematuria and displacement of PICC line (completing therapy w/ IV ertapenem for LE wound infection) * Current antibiotic regimen includes ertapenem, linezolid, and doxycycline * Blood sugars have been well-controlled since time of admission with Novolog ordered only at this time * Diet ordered PLAN FOR INPATIENT GLYCEMIC CONTROL: * Hold outpatient oral diabetes medications * Basal insulin * Lantus 5 units SQ BID * Bolus insulin * NovoLog per scale ACHS or Q6hrs while NPO * Goal Range: Low 110 mg/dL - High 140 mg/dL * Correction Factor: 30 mg/dL/unit * Nutritional / Prandial insulin per carb ratio of 1 unit per 9 grams CHO consumed
--- NOTE | 2024-08-13 14:19 | Hospitalist Progress Note ---
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 Right groin wound Right Foot Wound Sacral 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 Positive cultures PICC line dislodgement --S/P right groin debridement for superficial incisional dehiscence and LLE angiogram for PVD/left great toe gangrene on 07/25/[address] Ross - on 6 weeks of ertapenem after OR cultures grew staph and enterococcus --PICC removed and US guided PIV placed in ED --Blood cultures: Negative to date --Continue IV ertapenem 1g daily until end date of 08/16/2024 --Also was prescribed on 08/06/2024: fluconazole x3 days (completed), linezolid x4 days (ordered one more day), doxycycline x10 days (ordered until 08/16) -- Completed Linezolid course --Continue wound care --Appreciate vascular surgery input: No indication for acute vascular intervention currently --Needs follow-up with primary vascular surgeon as outpatient on discharge -- Continue wound care -- PT OT prior to discharge Gross hematuria Suspected complicated urinary tract infection Severe enlarged prostate with massive varicosities--POA In setting of dual antiplatelet therapy --CT ABD: Apparent increased attenuating contents within the bladder, which is incompletely distended, and contains a Ware catheter, possibly representing blood products. Thickening of the urinary bladder wall and mucosal hyperenhancement, as above, may be seen with cystitis. Markedly enlarged prostate gland. No renal or ureteral stone or renal mass. --S/P Cystoscopy with Cystolitholapaxy, Clot evacuation, Fulguration of bleeding prostatic Varicosities, and fulguration of bladder neck by on 08/10/24 --Blood culture: Negative to date --Urine culture--growing Jyoti --on ertapenem as above Appreciate urology input: Consideration for Rezum procedure, voiding trial as able Monitor H&H and transfuse as needed Avoid anticoagulation for now Continue Ware catheter Pyridium as needed Continue fluconazole Hematuria resolved Consulted ID for further recommendations Needs follow-up with urology on discharge PAD --S/P right groin debridement for superficial incisional dehiscence and LLE angiogram for PVD/left great toe gangrene on 07/25/[address] Ross --Continue aspirin and Plavix daily for vasculopathy --Continue Lipitor --Heel suspension boots --Wound care per vascular surgery: -Wash right foot daily, no soaking/submersion -Dankins soaked gauze packing amp site & open groin site, cover w/ DSD and light Kerlix wrap of right foot -Heal protector for right foot -Continue platform shoe -[place] left great toe w/ Betadine -Appreciate vascular surgery input. Right foot osteomyelitis: Unsure Acute Vs Chronic--POA --Leg CTA:Status post multiple amputations of the right foot with osteomyelitis of the hallux, the 2nd and 3rd digits at the amputation stumps. -- Blood cultures negative to date --Currently on ertapenem, doxycycline -- Infectious disease, podiatry consulted for further recommendations Pressure ulcer of sacral region, at least Stage 2, POA WOCN consult Turn and reposition q2hr Pain control with Tylenol and morphine PRN Continue wound care DM II On Jardiance, glimepiride, liraglutide, metformin at home - hold while hospitalized Continue insulin per protocol Monitor blood glucose levels Glycemic pharmacy consulted Hypertension BP low Hold amlodipine for now Monitor blood pressure IV fluids as needed for hypotension H/O CVA Continue aspirin, Plavix, statin Hyperlipidemia Continue atorvastatin and colesevelam Hypothyroidism Continue levothyroxine GERD Continue pantoprazole BPH Continue tamsulosin Severe malnutrition Consulted dietitian DVT Px: SQ Lovenox--held Re: Hematuria, anemia Code Status: FULL CODE PCP: Gabriele Dumas MD Admission and Anticipated Discharge Date Admission Date: August 08, 2024 Subjective Patient is seen and examined at bedside Reports having some discomfort at the sacral wound region Updated patient on this 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 helper over the phone in detail No recurrence of hematuria currently Dysuria much improved Urine culture pending Denies any chest pain, dyspnea, nausea, vomiting, abdominal pain Review of Systems Review of Systems: All systems reviewed & are unremarkable except as noted in Subjective Physical Exam Physical Exam: Physical Exam: Vitals signs as noted above General Appearance:Moderately built and nourished, no apparent distress, chronic ill appearing Head: normocephalic, Atraumatic Eyes: normal inspection, EOMI Neck: supple, Trachea midline Respiratory/Chest: Normal breath sounds, CTA, No accessory muscle use Cardiovascular: S1, S2, No murmur Abdomen/GI:Soft, Non tender, Bowel sounds present Extremities/Musculoskeletal:normal inspection, no edema Neurologic/Psych:AAOX3, + Facial droop, minimal left sided weakness Skin: +R groin surgical wound, small sacral wound, R foot partial amputation, wound, Left great toe gangrenous, missing digits Results & Data Results & Data Vital Signs (Past 12 Hours) Vital Signs Temp Pulse Pulse Resp BP Pulse Ox O2 Del Method 08/13/24 12:53 36.9 C 71 17 99/59 L 97 Room Air 08/13/24 09:00 Room Air 08/13/24 08:27 36.3 C L 66 16 119/79 95 Room Air 08/13/24 07:55 56 L 08/13/24 03:27 36.5 C 67 16 100/62 95 Room Air
[2024-08-14 06:01] LABS: Hematocrit (blood only) 32.7 % (42.0-52.0); Hemoglobin 10.1 g/dl (14.0-18.0); Mean Corpuscular Hemoglobin 27.6 pg (25.0-34.0); Mean Corpuscular Volume 89.3 fL (80.0-100.0); Platelet Count 358 K/uL (130-400); RDW Standard Deviation 52.6 fL (36.4-46.3); Red Blood Count 3.66 M/uL (4.70-6.10); White Blood Count 14.71 K/ul (4.8-10.8)
[2024-08-14 06:20] LABS: Anion Gap 7.0 (3-11); Blood Urea Nitrogen 24.0 mg/dl (6-23); Calcium 8.4 mg/dl (8.6-10.3); Carbon Dioxide 25.0 mmol/L (21-32); Chloride 104.0 mmol/L (98-107); Creatinine Clr Calc Pharmacy 104.6 ml/min; Glucose 136.0 mg/dl (70-99(Fasting)); Potassium 4.1 mmol/L (3.5-5.1); Sodium 136.0 mmol/L (136-145)
--- NOTE | 2024-08-14 07:22 | Podiatry Consultation ---
Date of Consultation August 14, 2024 Assessment & Plan (1) PAD (peripheral artery disease): (2) Ulcer of left great toe due to diabetes mellitus: (3) Pressure injury of toe of left foot, unstageable: (4) Diabetic ulcer of right foot associated with diabetes mellitus due to underlying condition, with fat layer exposed: Diabetic foot ulcer location: midfoot Qualified Code(s): E08.621 - Diabetes mellitus due to underlying condition with foot ulcer; L97.412 - Non- pressure chronic ulcer of right heel and midfoot with fat layer exposed (5) Status post transmetatarsal amputation of right foot: (6) History of amputation of lesser toe of left foot: (7) Open wound of right ankle: Encounter type: initial encounter Qualified Code(s): S91.001A - Unspecified open wound, right ankle, initial encounter Plan Bilateral foot wounds evaluated. Right foot: CTA results reviewed with concern for possible osteomyelitis of metatarsal remnants of the right foot. No signs of local soft tissue infection or exposed bone within the right foot wound at this time. Patient has history of transmetatarsal amputation on the right foot with residual osteomyelitis, which is treated with debridement and IV antibiotics and remaining wound to the distal right forefoot healthy and appearance of granular tissue of the wound bed no exposed bone or signs of local soft tissue infection. Will continue Dakin soaked gauze under dry sterile dressing once daily. Wound dehiscence at medial ankle from recent bypass surgery to the right lower extremity with no signs of local soft tissue infection. Will continue Dakin soaked gauze once daily followed by dry sterile dressing. Avoid compression. Left foot: stable eschar in place to the distal aspect of left Hallux with no signs of local soft tissue infection. Will continue local wound care with once daily Betadine application. Okay to leave exposed to air. Avoid pressure from footboard and blankets. Continue bilateral heel offloading boots at all times while in bed. Elevate heels off bed with pillow behind the leg. No weightbearing restriction No plan for podiatric surgical intervention during this admission. Thank you for consulting podiatry to hear this patient. Will continue to follow and recommend continued follow up in the wound care center for discharge. History of Present Illness Reason for Consultation: Bilateral foot wounds, history of osteomyelitis right foot with recent transmetatarsal amputation Attending Physician: Paul Kearney MD History of Present Illness Patient reports blister to left great toe starting in May 2024 which was deroofed and subsequently developed eschar which has been treated regularly with Betadine since that time. Status post right lower extremity bypass 06/28/2024 was performed in hopes to improve healing at a failed transmetatarsal amputation site of the right foot. Underwent subsequent debridement of the transmetatarsal amputation site and patient's POA reports significant improvement in the overall healing of the transmetatarsal amputation site since the time of bypass. He has been changing dressing with Dakin's wet-to-dry gauze once daily. Wound bed is now healthy granular tissue and he has no signs of local soft tissue infection to the right foot. He does have dehiscence of the bypass site distally along the medial ankle which is also being treated with a Dakin's wet-to-dry dressing. Patient was discharged from [facility] to rehab facility with PICC line in place receiving IV Invanz with planned end date of 08/16/2024. He was discharged from [facility] 08/07/2024 and reported to [facility] 08/08/2024 with hematuria and Ware catheter and partially removed PICC line. PICC line was subsequently removed and the emergency department and PIV placed for continuation of ertapenem until end date 08/16/2024. Recent completion of prescriptions for fluconazole and linezolid. Continues p.o. doxycycline until 08/16/2024. History of left 2nd and 3rd digit amputation and left partial 4th and 5th ray amputation. History of transmetatarsal amputation right foot. Blood culture 08/08/2024 no growth at 5 days. 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 Patient was recently admitted and readmitted to [facility] for vascular lyle nasreen with rehab stays as detailed below. Timeline of previous hospitalizations: -Admitted 06/28-07/05/24 to [facility] for right common femoral to PT bypass with non- reversed GSV on 06/28, required pressors post-op so sent to ICU. That evening, developed stroke-like symptoms, scans showed old infarcts. Per neurology, high suspicion for stroke recrudescence symptoms improved. On 07/02, underwent right TMA wound debridement, cultures grew staph and enterococcus. Seen by ID who recommended ertapenem for 6 wks so PICC line placed. Discharged to [facility] for rehab on 07/05. -Seen by urology inpatient 07/04/24 evaluation of urinary retention s/p initial vascular procedure. Subsequently seen 07/25/24 for ongoing issues with Ware including leakage of urine around the catheter and intermittent gross hematuria. Urology placed 22 Fr hematuria catheter and irrigated with 1L of NS w/ return of 50 cc old clot. Was to f/u outpatient for cystoscopy and CT urogram. -Readmitted 07/25-07/27/24 for superficial dehiscence of right femoral incision after bypass, left toe gangrene for which pt underwent right groin debridement and nonselective LLE angiogram. Discharged to [facility] on 07/27 for continued rehab. Due to finish ertapenem 08/16/24. -Discharged from [facility] on 08/07/24. Saw vascular surgery for f/u yesterday who recommended continue DAPT for vasculopathy, Lipitor 40 mg for dyslipidemia. For wound care, wash right foot daily but no soaking or submersion; Dankins soaked guaze packing amp site and open groin site, cover with DSD and light Kerlix wrap of right foot. Needs heel protector for right foot; paint left great toe with betadine. 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 LAUNDRY DETERGENT AT Allergy Severe SEVERE Uncoded 08/08/24 17:21 [place] ITCHING Home Medications Medication Instructions Recorded Confirmed Type amlodipine 5 mg tablet 5 mg PO QAM 03/23/24 08/08/24 History aspirin 81 mg tablet,delayed 81 mg PO QAM 03/23/24 08/08/24 History release glimepiride 4 mg tablet 4 mg PO BID 03/23/24 08/08/24 History liraglutide 0.6 mg/0.1 mL (18 mg/3 1.8 mg subcut QAM 03/23/24 08/08/24 History mL) subcutaneous pen injector metformin 500 mg tablet,extended 1,500 mg PO QAM 03/23/24 08/08/24 History release 24 hr oxycodone 5 mg tablet 5 mg PO BID PRN Pain, Severe 03/23/24 08/08/24 History Phenol Liquid [place] 1 spray mucous membrane Q4H 08/08/24 08/08/24 History acetaminophen 325 mg tablet 650 mg PO Q6H PRN PAIN/FEVER 08/08/24 08/08/24 History (Tylenol) atorvastatin 40 mg tablet 40 mg PO QAM 08/08/24 08/08/24 History bisacodyl 10 mg rectal suppository 10 mg AL DAILY PRN Constipation 08/08/24 08/08/24 History calcium carbonate (Tums E-X) 300 mg PO Q6H PRN Heartburn 08/08/24 08/08/24 History clopidogrel 75 mg tablet (Plavix) 75 mg PO QAM 08/08/24 08/08/24 History colesevelam 625 mg tablet (WelChol) 625 mg PO BIDM 08/08/24 08/08/24 History dibucaine 1 % topical ointment 1 applic topical BID 08/08/24 08/08/24 History docusate sodium 100 mg capsule 100 mg PO BID PRN Constipation 08/08/24 08/08/24 History doxycycline hyclate 100 mg tablet 100 mg PO BID 08/08/24 08/08/24 History empagliflozin 25 mg tablet 25 mg PO QAM 08/08/24 08/08/24 History (Jardiance) ertapenem 1 gram solution for 1 g IV DAILY 08/08/24 08/08/24 History injection ferrous sulfate 325 mg (65 mg 325 mg PO TIDM 08/08/24 08/08/24 History iron) tablet fluconazole 100 mg tablet 100 mg PO DAILY 08/08/24 08/08/24 History gabapentin 100 mg capsule 100 mg PO .BID QAM & AFTERNOON 08/08/24 08/08/24 History gabapentin 300 mg capsule 600 mg PO HS 08/08/24 08/08/24 History guar gum 1 tbsp PO DAILY 08/08/24 08/08/24 History heparin, porcine (PF) 5,000 5,000 unit subcut TID 08/08/24 08/08/24 History unit/mL injection syringe hydrocortisone acetate 25 mg 25 mg AL BID PRN Hemorrhoids 08/08/24 08/08/24 History rectal suppository (Anusol-HC) insulin lispro 100 unit/mL 1 sliding scale dose subcut 08/08/24 08/08/24 History subcutaneous solution USEASDIRECTD levothyroxine 25 mcg tablet 25 mcg PO DAILYBB 08/08/24 08/08/24 History lidocaine HCl 2 % topical gel 1 applic topical Q8H PRN APPLY TO 08/08/24 08/08/24 History PENIS NEEDED linezolid 600 mg tablet 600 mg PO DIRECTED 08/08/24 08/08/24 History melatonin 3 mg tablet 3 mg PO HS 08/08/24 08/08/24 History methocarbamol 500 mg tablet 500 mg PO BID 08/08/24 08/08/24 History pantoprazole 40 mg tablet,delayed 40 mg PO DAILY 08/08/24 08/08/24 History release polyethylene glycol 3350 17 17 g PO QPM 08/08/24 08/08/24 History gram/dose oral powder (Miralax) sennosides 8.6 mg tablet (senna) 8.6 mg PO BID 08/08/24 08/08/24 History sennosides 8.6 mg-docusate sodium 2 tab-cap PO QDL 08/08/24 08/08/24 History 50 mg tablet (Senna Plus) silver sulfadiazine 1 % topical 1 applic topical DAILY 08/08/24 08/08/24 History cream (Silvadene) sodium chloride 0.9 % (flush) 10 ml IV Q12H 08/08/24 08/08/24 History (Normal Saline Flush 0.9 % injection syringe) sodium hypochlorite 0.25 % solution 1 applic topical Q8H 08/08/24 08/08/24 History tamsulosin 0.4 mg capsule (Flomax) 0.4 mg PO HS 08/08/24 08/08/24 History Patient History Medical History Hypothyroidism 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 diabetes mellitus ICAO (internal carotid artery occlusion) bilateral Essential hypertension Guillain-[place] syndrome after administration of vaccine Dyslipidemia Embolic stroke involving right middle cerebral artery Osteomyelitis of ankle or foot, right, acute Presence of IVC filter Seizure-like activity Type 2 diabetes mellitus Carotid artery disease Kidney stone Surgical History S/P IVC filter History of thrombectomy S/P debridement multiple 07/25/24 right groin incision 07/02/24, 05/16/24 S/P femoral-tibial bypass S/P tonsillectomy S/P total hip arthroplasty S/P cataract surgery 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 Family History Other Cancer Diabetes Heart disease Social History Smoking Status: Never smoker Hx Alcohol Use: No Hx Substance Use: No Preferred Language: Kyr[place] Communication Ability: Effective Telecommunications Technician Required: No Beliefs That Will Affect Care: None Current Living Situation: Other Current Living Situation Comment: Lives w/ friend/POA/caregiver Seng Rasmussen Other Information That Helps Us Care for You: No Feels Safe at Home: Yes Safety Concerns: Feels Safe At This Time Assistive Devices: Hospital Bed, Walker and Wheelchair Review of Systems Review of Systems: Patient denies nausea, vomiting, fever, chills, shortness of breath, chest pain. Denies pain in the bilateral foot. Physical Exam Physical Exam: Const: No signs of acute distress present. Denies nausea, vomiting, fever or chills. CV: Extremities: Capillary refill time is 3 seconds all digits of the left foot with exception of dry eschar to the hallux and to the amputation site of the right foot. Pedal pulses are nonpalpable bilateral. Recent right lower extremity bypass surgery with open/dehisced wound to the medial ankle. Lymph: No palpable or visible regional lymphadenopathy. Skin: Skin is thin and atrophic in the bilateral lower extremity below the knee with loss of hair growth. See wound exam Neuro: Loss of protective sensation of bilateral foot Psych: Mood/Affect: Mood is normal. Affect is normal. Cognition: Orientation is intact to person, place and time. Focused lower extremity musculoskeletal exam: Leg: No pain with compression of the calf muscle. Right foot: Status post transmetatarsal amputation which is well-healed lateral ly and open with granular wound medially. Wound to the medial aspect of the transmetatarsal amputation site extends to subcutaneous tissue with healthy granular wound bed. There is no frankly exposed bone or tendon in the wound and there is no undermining tracking or active drainage. Patient developed infection at the transmetatarsal amputation site which required revision, debridement and has improved to healing following bypass surgery to the right lower extremity 06/28/2024. There is dehiscence along the medial right ankle and rear foot which extends to subcutaneous tissue without any notable exposure of underlying vascular structures. Slough to the wound bed is easily removed with 4 x 4 gauze exposing mixed granular and subcutaneous tissue. 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 Patient has a stable eschar to the distal medial aspect of the right great toe. Edges of the eschar starting to lift with underlying healthy epithelium. There is no signs of local soft tissue infection and eschar is well adhered to the underlying tissue. Optimistic that with time. Continued application of Betadine once daily and may lysing pressure to the area of this wound can heal without surgical intervention. Results & Data Vital Signs (Past 12 Hours) Vital Signs Temp Pulse Pulse Resp BP Pulse Ox O2 Del Method 08/14/24 02:48 36.7 C 70 18 124/69 95 Room Air 08/14/24 00:01 36.8 C 62 18 122/76 95 Room Air 08/13/24 22:51 62 08/13/24 20:58 36.8 C 65 18 130/78 97 Room Air 08/13/24 20:00 Room Air Laboratory Results White blood count 14.71 Hemoglobin 10.1 Hematocrit 32.7 Diagnostic Findings Right lower extremity CT angiogram 08/12/2024: Impression: Extensive atherosclerotic involvement of the right lower extremity arterial vasculature as detailed above. Multifocal severe stenoses are present within the superficial right femoral artery with occlusive to near occlusive changes of the infrapopliteal arteries. There appears to be a bypass graft arising from the distalmost common femoral artery on the right side that is largely patent with severe multifocal stenoses seen in the plantar aspect of the right foot. Status post multiple amputations of the right foot with osteomyelitis of the hallux, the 2nd and 3rd digits at the amputation stumps. Prostamegaly and urinary bladder outlet obstruction. Ware catheter is in place. Intense inflammation of the urinary bladder suggests cystitis. Electronically signed by Be Johnson 08-12-2024 6:51 PM Dictated: 08/12/24 1622 PG Care Time/CCT Total # of Minutes Spent Total Time Spent with Patient: Total time spent is greater than 50% in coordination of care (as documented) at patient's floor/unit and/or counseling patient: Coding Level of Care Code 18148 INT INP/OBS CARE 2/55MIN Diagnoses PAD (peripheral artery disease) I73.9 Ulcer of left great toe due to diabetes mellitus E11.621; L97.529 Pressure injury of toe of left foot, unstageable L89.890 Diabetic ulcer of right midfoot associated with diabetes mellitus due to underlying condition, with fat layer exposed E08.621; L97.412 Diabetic foot ulcer location: midfoot Status post transmetatarsal amputation of right foot Z89.431 History of amputation of lesser toe of left foot Z89.422 Open wound of right ankle, initial encounter S91.001A Encounter type: initial encounter
--- NOTE | 2024-08-14 13:45 | Hospitalist Progress Note ---
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 Right groin wound Right Foot Wound Right foot osteomyelitis Sacral 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 Peripheral Artery Disease Leg CTA:Status post multiple amputations of the right foot with osteomyelitis of the hallux, the 2nd and 3rd digits at the amputation stumps. Extensive atherosclerotic involvement of RLE vasculature. Bypass graft arising from the distalmost common femoral artery on the right side that is largely patent with severe multifocal stenoses seen in the plantar aspect of the right foot PICC line dislodgement Recent right groin debridement for superficial incisional dehiscence and LLE angiogram for PVD/left great toe gangrene on 07/25/[address] Ross - on 6 weeks of ertapenem after OR cultures grew staph and enterococcus PICC was removed and US guided PIV placed in ED Continue wound care Podiatry eval noted. Wound care instructions provided. No surgery recommended at this time Vascular surg eval noted. Patient to follow up ID evaluation noted. Recommends continuing only IV ertapenem till 08/15/24 Continue aspirin and Plavix daily for vasculopathy Continue Lipitor Heel suspension boots Wash right foot daily, no soaking/submersion. Dankins soaked gauze packing amp site & open groin site, cover w/ DSD and light Kerlix wrap of right foot Heal protector for right foot Continue platform shoe [employer] left great toe w/ Betadine Gross hematuria Suspected complicated urinary tract infection Severe enlarged prostate with massive varicosities--POA In setting of dual antiplatelet therapy --CT ABD: Apparent increased attenuating contents within the bladder, which is incompletely distended, and contains a Ware catheter, possibly representing blood products. Thickening of the urinary bladder wall and mucosal hyperenhancement, as above, may be seen with cystitis. Markedly enlarged prostate gland. No renal or ureteral stone or renal mass. --S/P Cystoscopy with Cystolitholapaxy, Clot evacuation, Fulguration of bleeding prostatic Varicosities, and fulguration of bladder neck by on 08/10/24 --Blood culture: Negative to date --Urine culture--grew Jyoti --on ertapenem as above Appreciate urology input: Consideration for Rezum procedure Monitor H&H and transfuse as needed Avoid anticoagulation for now Continue Ware catheter on dc. 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 Monitor blood pressure H/O CVA Continue aspirin, Plavix, statin Hyperlipidemia Continue atorvastatin and colesevelam Hypothyroidism Continue levothyroxine GERD Continue pantoprazole BPH Continue tamsulosin Severe malnutrition Nutrition eval noted DVT Px: SQ Lovenox--held due to Hematuria, anemia Code Status: FULL CODE PCP: Gabriele Dumas MD Plan to discharge to [facility] tomorrow I spent a total of 55 minutes coordinating, documenting and providing care for this patient excluding time spent in performance of separately billed services Admission and Anticipated Discharge Date Admission Date: August 08, 2024 Subjective Patient seen and examined. Currently sitting in chair DENNIS Ellsworth at bedside Reports some pain from his sacral wound but stated they were under control Patient has no new complaints Physical Exam Constitutional: Chronic ill looking Eyes: PERRL, conjunctivae normal, anicteric sclerae ENMT: external ear and nose normal, oropharynx normal Respiratory: normal respiratory effort, lungs clear to auscultation Cardiovascular: Rate/Rhythm: regular rate and regular rhythm Gastrointestinal (Abdomen): Inspection/Auscultation: abdomen normal to inspection and normal bowel sounds; abdomen not distended Musculoskeletal: No pedal edema. Multiple missing toes. Eschar on left great toe Right foot covered in dressing Skin: +Sacral wound. Dressing over right groin wound Neurologic: PERRL, EOMI, accommodation nl, no face palsy, no dysarthria Psychiatric: A+Ox3, euthymic affect Genitourinary: Ware in situ Results & Data Results & Data Vital Signs (Past 12 Hours) Vital Signs Temp Pulse Pulse Resp BP Pulse Ox O2 Del Method 08/14/24 11:30 36.7 C 79 18 136/60 97 Room Air 08/14/24 08:00 36.6 C 86 18 110/57 L 96 Room Air 08/14/24 07:00 80 08/14/24 02:48 36.7 C 70 18 124/69 95 Room Air Laboratory Results Abnormal lab results 08/13/24 08/13/24 08/14/24 Range/Units 17:02 20:39 05:27 WBC 14.71 H (4.8-10.8) K/ul RBC 3.66 L (4.70-6.10) M/uL Hgb 10.1 L (14.0-18.0) g/dl Hct 32.7 L (42.0-52.0) % MCHC 30.9 L (32.0-36.0) g/dL RDW Std Deviation 52.6 H (36.4-46.3) fL RDW Coeff of Raymond 16.2 H (11.5-14.5) % BUN 24 H (6-23) mg/dl BUN/Creatinine Ratio 36.9 H (10-20) Glucose 136 H (70-99(Fasting)) mg/dl POC Glucose 130 H 150 H (70-99) mg/dl Calcium 8.4 L (8.6-10.3) mg/dl 08/14/24 08/14/24 Range/Units 07:58 12:09 WBC (4.8-10.8) K/ul RBC (4.70-6.10) M/uL Hgb (14.0-18.0) g/dl Hct (42.0-52.0) % MCHC (32.0-36.0) g/dL RDW Std Deviation (36.4-46.3) fL RDW Coeff of Raymond (11.5-14.5) % BUN (6-23) mg/dl BUN/Creatinine Ratio (10-20) Glucose (70-99(Fasting)) mg/dl POC Glucose 105 H 119 H (70-99) mg/dl Calcium (8.6-10.3) mg/dl
--- NOTE | 2024-08-14 14:24 | Infectious Disease Consult ---
Date of Service August 14, 2024 Telehealth Information I performed this visit using a real-time telehealth connection between my location and the patients location ([facility]). After connecting through interactive tele-video, patient was identified by name and date of and/or wristband check.Patient (or authorized healthcare sales representative aircraft) was informed that this was a telemedicine visit and it was being conducted confidentially over secure lines. My office door was closed and no one else was present in the room with me.Patient (or authorized healthcare sales representative aircraft) provided consent to proceed with the visit, expressed an understanding of privacy and security of the telemedicine visit, and gave permission to have a hospital sales representative aircraft in the room in order to assist with the visit and to conduct portions of the visit, as needed. I informed the patient (or authorized healthcare sales representative aircraft) that I reviewed their record and presented the opportunity for them to ask any questions regarding the visit today. The patient agreed to participate. Assessment & Plan (1) Foot osteomyelitis, right: Plan: Currently receiving treatment (2) Status post transmetatarsal amputation of right foot: (3) Peripheral vascular disease: (4) Gross hematuria: Plan At this point, I have no concern for urinary tract infection. The yeast growing in the urine is of no clinical significance and does not warrant treatment. Also, from the way the wounds look in the chart including the right foot amputation site as well as the right groin, I could not appreciate any signs of infection. The background of both wounds suggest good granulation tissue without any drainage or necrotic tissue. The CTA right foot findings of osteomyelitis sh ould not be taken into consideration without any signs of soft tissue infection and especially after recent surgery. Therefore, I would recommend stopping all antibiotics except for IV ertapenem which is anticipated to be completed on 08/15/2024. Thank you for your consult. We will sign off for now. History of Present Illness History of Present Illness Mr. Santos is a 74-year-old man with past medical history of [place], embolic stroke with residual left-sided weakness, HTN, type 2 diabetes and severe peripheral arterial disease who was admitted to [facility] because of PICC line dislodgement and gross hematuria. He underwent right TMA in February 2024 and he is status post right common femoral to popliteal bypass on 06/28/2024 with I&D of the right TMA wound. Intraoperative wound culture at that time growing Enterobacter and MSSA. He also had superficial dehiscence of the right groin incision site requiring right groin debridement of the skin and subcutaneous tissue on 07/25/2024 (no cultures were sent from that surgery). Per our recommendations, the patient was discharged to [facility] on 6 weeks of IV ertapenem with anticipated end date of 08/15/2024. He is now admitted to [facility] because dislodged PICC line and gross hematuria which the patient attributed to traumatic Ware catheter. On presentation, he was afebrile and all of his vitals were within normal limits. Initial workup showed leukocytosis of 16.9 (ANC 14), UA showed more than 20 RBCs, 21-50 WBCs with no bacteria. Urine culture later grew Jyoti glabrata. CT abdomen and pelvis showed increased attenuating contents within the bladder which is incompletely distended suggestive of blood products. CT of the right lower extremity showed multifocal severe stenosis within the superficial right femoral artery with occlusive to near occlusive changes of the infrapopliteal arteries with patent bypass graft. There was concern for osteomyelitis of the right foot at the TMA site of the hallux as well as the 2nd and 3rd digits. The ID team was consulted for further recommendations and to help guide antibiotic treatment. 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 LAUNDRY DETERGENT AT Allergy Severe SEVERE Uncoded 08/08/24 17:21 [facility] [employer] Home Medications Medication Instructions Recorded Confirmed Type amlodipine 5 mg tablet 5 mg PO QAM 03/23/24 08/08/24 History aspirin 81 mg tablet,delayed 81 mg PO QAM 03/23/24 08/08/24 History release glimepiride 4 mg tablet 4 mg PO BID 03/23/24 08/08/24 History liraglutide 0.6 mg/0.1 mL (18 mg/3 1.8 mg subcut QAM 03/23/24 08/08/24 History mL) subcutaneous pen injector metformin 500 mg tablet,extended 1,500 mg PO QAM 03/23/24 08/08/24 History release 24 hr oxycodone 5 mg tablet 5 mg PO BID PRN Pain, Severe 03/23/24 08/08/24 History Phenol Liquid [place] 1 spray mucous membrane Q4H 08/08/24 08/08/24 History acetaminophen 325 mg tablet 650 mg PO Q6H PRN PAIN/FEVER 08/08/24 08/08/24 History (Tylenol) atorvastatin 40 mg tablet 40 mg PO QAM 08/08/24 08/08/24 History bisacodyl 10 mg rectal suppository 10 mg MI DAILY PRN Constipation 08/08/24 08/08/24 History calcium carbonate (Tums E-X) 300 mg PO Q6H PRN Heartburn 08/08/24 08/08/24 History clopidogrel 75 mg tablet (Plavix) 75 mg PO QAM 08/08/24 08/08/24 History colesevelam 625 mg tablet (WelChol) 625 mg PO BIDM 08/08/24 08/08/24 History dibucaine 1 % topical ointment 1 applic topical BID 08/08/24 08/08/24 History docusate sodium 100 mg capsule 100 mg PO BID PRN Constipation 08/08/24 08/08/24 History doxycycline hyclate 100 mg tablet 100 mg PO BID 08/08/24 08/08/24 History empagliflozin 25 mg tablet 25 mg PO QAM 08/08/24 08/08/24 History (Jardiance) ertapenem 1 gram solution for 1 g IV DAILY 08/08/24 08/08/24 History injection ferrous sulfate 325 mg (65 mg 325 mg PO TIDM 08/08/24 08/08/24 History iron) tablet fluconazole 100 mg tablet 100 mg PO DAILY 08/08/24 08/08/24 History gabapentin 100 mg capsule 100 mg PO .BID QAM & AFTERNOON 08/08/24 08/08/24 History gabapentin 300 mg capsule 600 mg PO HS 08/08/24 08/08/24 History guar gum 1 tbsp PO DAILY 08/08/24 08/08/24 History heparin, porcine (PF) 5,000 5,000 unit subcut TID 08/08/24 08/08/24 History unit/mL injection syringe hydrocortisone acetate 25 mg 25 mg MI BID PRN Hemorrhoids 08/08/24 08/08/24 History rectal suppository (Anusol-HC) insulin lispro 100 unit/mL 1 sliding scale dose subcut 08/08/24 08/08/24 History subcutaneous solution USEASDIRECTD levothyroxine 25 mcg tablet 25 mcg PO DAILYBB 08/08/24 08/08/24 History lidocaine HCl 2 % topical gel 1 applic topical Q8H PRN APPLY TO 08/08/24 08/08/24 History PENIS NEEDED linezolid 600 mg tablet 600 mg PO DIRECTED 08/08/24 08/08/24 History melatonin 3 mg tablet 3 mg PO HS 08/08/24 08/08/24 History methocarbamol 500 mg tablet 500 mg PO BID 08/08/24 08/08/24 History pantoprazole 40 mg tablet,delayed 40 mg PO DAILY 08/08/24 08/08/24 History release polyethylene glycol 3350 17 17 g PO QPM 08/08/24 08/08/24 History gram/dose oral powder (Miralax) sennosides 8.6 mg tablet (senna) 8.6 mg PO BID 08/08/24 08/08/24 History sennosides 8.6 mg-docusate sodium 2 tab-cap PO QDL 08/08/24 08/08/24 History 50 mg tablet (Senna Plus) silver sulfadiazine 1 % topical 1 applic topical DAILY 08/08/24 08/08/24 History cream (Silvadene) sodium chloride 0.9 % (flush) 10 ml IV Q12H 08/08/24 08/08/24 History (Normal Saline Flush 0.9 % injection syringe) sodium hypochlorite 0.25 % solution 1 applic topical Q8H 08/08/24 08/08/24 History tamsulosin 0.4 mg capsule (Flomax) 0.4 mg PO HS 08/08/24 08/08/24 History Patient History Medical History Hypothyroidism 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 diabetes mellitus ICAO (internal carotid artery occlusion) bilateral Essential hypertension Guillain-[place] syndrome after administration of vaccine Dyslipidemia Embolic stroke involving right middle cerebral artery Osteomyelitis of ankle or foot, right, acute Presence of IVC filter Seizure-like activity Type 2 diabetes mellitus Carotid artery disease Kidney stone Surgical History S/P IVC filter History of thrombectomy S/P debridement multiple 07/25/24 right groin incision 07/02/24, 05/16/24 S/P femoral-tibial bypass S/P tonsillectomy S/P total hip arthroplasty S/P cataract surgery 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 Family History Other Cancer Diabetes Heart disease Social History Smoking Status: Never smoker Hx Alcohol Use: No Hx Substance Use: No Preferred Language: Yi Communication Ability: Effective Aircraft Assembler Required: No Beliefs That Will Affect Care: None Current Living Situation: Other Current Living Situation Comment: Lives w/ friend/POA/caregiver Seng Rasmussen Other Information That Helps Us Care for You: No Feels Safe at Home: Yes Safety Concerns: Feels Safe At This Time Assistive Devices: Hospital Bed, Walker and Wheelchair Review of Systems Negative except for what was mentioned in the H&P. Physical Exam Could not be performed given that the encounter was conducted via TeleMed. Results & Data Vital Signs (Past 12 Hours) Vital Signs Temp Pulse Pulse Resp BP Pulse Ox O2 Del Method 08/14/24 11:30 36.7 C 79 18 136/60 97 Room Air 08/14/24 08:00 36.6 C 86 18 110/57 L 96 Room Air 08/14/24 07:00 80 08/14/24 02:48 36.7 C 70 18 124/69 95 Room Air Laboratory Results Microbiology: 08/08: 2 sets of blood culture negative to date 08/08: Urine culture growing Jyoti glabrata Diagnostic Findings CTA right lower extremity on 08/12: Extensive atherosclerotic involvement of the right lower extremity arterial vasculature as detailed above. Multifocal severe stenoses are present within the superficial right femoral artery with occlusive to near occlusive changes of the infrapopliteal arteries. There appears to be a bypass graft arising from the distalmost common femoral artery on the right side that is largely patent with severe multifocal stenoses seen in the plantar aspect of the right foot. Status post multiple amputations of the right foot with osteomyelitis of the hallux, the 2nd and 3rd digits at the amputation stumps. Prostamegaly and urinary bladder outlet obstruction. Ware catheter is in place. Intense inflammation of the urinary bladder suggests cystitis.
[2024-08-14] MEDS: LANTUS PER UNIT CHARGE SC SCH (21:11)
[2024-08-15 03:15] VITALS: TEMP 97.7
[2024-08-15 06:18] LABS: Hematocrit (blood only) 33.6 % (42.0-52.0); Hemoglobin 10.4 g/dl (14.0-18.0); Mean Corpuscular Hemoglobin 27.4 pg (25.0-34.0); Mean Corpuscular Volume 88.4 fL (80.0-100.0); Platelet Count 371 K/uL (130-400); RDW Standard Deviation 52.8 fL (36.4-46.3); Red Blood Count 3.80 M/uL (4.70-6.10); White Blood Count 13.15 K/ul (4.8-10.8)
[2024-08-15 06:40] LABS: Anion Gap 8.0 (3-11); Blood Urea Nitrogen 24.0 mg/dl (6-23); Calcium 8.8 mg/dl (8.6-10.3); Carbon Dioxide 25.0 mmol/L (21-32); Chloride 104.0 mmol/L (98-107); Creatinine Clr Calc Pharmacy 151.1 ml/min; Glucose 144.0 mg/dl (70-99(Fasting)); Potassium 3.8 mmol/L (3.5-5.1); Sodium 137.0 mmol/L (136-145)
[2024-08-15 08:10] VITALS: BP 137/84; RESP 19; O2SAT 94
--- NOTE | 2024-08-15 10:29 | Podiatry Progress Note ---
Date of Service August 15, 2024 Assessment & Plan (1) Peripheral vascular disease: (2) Open wound of right ankle: (3) History of amputation of lesser toe of left foot: (4) Status post transmetatarsal amputation of right foot: (5) Diabetic ulcer of right foot associated with diabetes mellitus due to underlying condition, with fat layer exposed: (6) Pressure injury of toe of left foot, unstageable: (7) Ulcer of left great toe due to diabetes mellitus: Plan No plan for podiatric surgical intervention. Continue bilateral foot wound care, including Dakins wet to dry dressings for the right foot once daily and application of Betadine to the eschar left great to daily. Continue post op shoes b/l for short distance and transfer as needed. Patient to follow up in wound care center following discharge for ongoing care. Podiatry will sign off at this point. I will be out of town over the holiday. Please reconsult podiatry as needed. Thank you for consulting podiatry to aid in the care of this pt. Admission and Anticipated Discharge Date Admission Date: August 08, 2024 Results & Data Results & Data Vital Signs (Past 12 Hours) Vital Signs Temp Pulse Pulse Resp BP Pulse Ox O2 Del Method 08/15/24 08:09 36.5 C 53 L 19 137/84 94 Room Air 08/15/24 07:00 63 08/15/24 03:14 36.5 C 60 18 119/65 97 Room Air 08/14/24 23:37 36.6 C 56 L 18 124/71 96 Room Air 08/14/24 22:55 62 Coding Diagnoses Peripheral vascular disease I73.9 Open wound of right ankle, initial encounter S91.001A Encounter type: initial encounter History of amputation of lesser toe of left foot Z89.422 Status post transmetatarsal amputation of right foot Z89.431 Diabetic ulcer of right midfoot associated with diabetes mellitus due to underlying condition, with fat layer exposed E08.621; L97.412 Diabetic foot ulcer location: midfoot Pressure injury of toe of left foot, unstageable L89.890 Ulcer of left great toe due to diabetes mellitus E11.621; L97.529 (2) Open wound of right ankle Encounter type: initial encounter Qualified Code(s): S91.001A - Unspecified open wound, right ankle, initial encounter (5) Diabetic ulcer of right foot associated with diabetes mellitus due to underlying condition, with fat layer exposed Diabetic foot ulcer location: midfoot Qualified Code(s): E08.621 - Diabetes mellitus due to underlying condition with foot ulcer; L97.412 - Non-pressure chronic ulcer of right heel and midfoot with fat layer exposed
--- NOTE | 2024-08-15 11:28 | Discharge Summary ---
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 Patient was recently a dmitted and readmitted to [facility] for vascular surgery with rehab stays as detailed below. Patient is with his POA and caregiver, Seng. Seng notes that he noticed his PICC line seemed to be coming out this morning. He also noticed bloody urine in his farrar catheter. Seng states that farrar catheter was placed approximately 6 days ago at [facility]. Patient and Seng deny any trauma or movements that would have caused tension on PICC line or farrar, however, patient is wheelchair bound and Seng has to lift patient in and out of his wheelchair by himself. Patient was seen by Home Health today who performed all of his post op dressing changes. Patient reports burning when he urinates at the tip of his penis as well as a bed sore on his sacrum that has been bothering him for about 2 months. He denies fevers, chills, chest pain, SOB, abdominal pain, flank pain, N/V/D. Timeline of previous hospitalizations: -Admitted 06/28-07/05/24 to [facility] for right common femoral to PT bypass with non-reversed GSV on 06/28, required pressors post-op so sent to ICU. That evening, developed stroke-like symptoms, scans showed old infarcts. Per neurology, high suspicion for stroke recrudescence symptoms improved. On 07/02, underwent right TMA wound debridement, cultures grew staph and enterococcus. Seen by ID who recommended ertapenem for 6 wks so PICC line placed. Discharged to [facility] for rehab on 07/05. -Seen by urology inpatient 07/04/24 evaluation of urinary retention s/p initial vascular procedure. Subsequently seen 07/25/24 for ongoing issues with Farrar including leakage of urine around the catheter and intermittent gross hematuria. Urology placed 22 Fr hematuria catheter and irrigated with 1L of NS w/ return of 50 cc old clot. Was to f/u outpatient for cystoscopy and CT urogram. -Readmitted 07/25-07/27/24 for superficial dehiscence of right femoral incision after bypass, left toe gangrene for which pt underwent right groin debridement and nonselective LLE angiogram. Discharged to [facility] on 07/27 for continued rehab. Due to finish ertapenem 08/16/24. -Discharged from [facility] on 08/07/24. Saw vascular surgery for f/u yesterday who recommended continue DAPT for vasculopathy, Lipitor 40 mg for dyslipidemia. For wound care, wash right foot daily but no soaking or submersion; Dankins soaked guaze packing amp site and open groin site, cover with DSD and light Kerlix wrap of right foot. Needs heel protector for right foot; paint left great toe with betadine. Admission Exam Per Admitting Provider General/Psych: WD/WN, laying in bed, NAD, conversing easily Head: normocephalic, atraumatic Eyes: normal inspection, PERRL, conjunctivae pink, anicteric sclerae ENT: external ear and nose normal, oropharynx normal Neck: normal visual inspection, trachea midline, Respiratory: normal respiratory effort, lungs clear to auscultation, no wheeze/rales/rhonchi, no accessory muscle use Cardiovascular: regular rate and rhythm, no murmur/rub/gallop, no JVD Extremities: no cyanosis or clubbing, normal peripheral pulses, no BLE edema Abdomen/GI: normal bowel sounds, soft, nontender, no hepatosplenomegaly : farrar in place with carol bloody urine Neurologic/MSK: A+Ox3, motor strength 5/5, moves all extremities Skin: no rashes, normal color, warm and dry, small open wound with 1cm tunneling at sacrum, no erythema or drainage, right groin surgical wound packed with c/d/i gauze and covered with abd dressing, right foot wrapped in dressing, platform shoes in place Principal Diagnosis Recent Osteomyelitis Pressure ulcers Hematuria status post cystoscopy with cystolitholapaxy, clot evacuation and fulguration Discharge Exam Constitutional Chronic ill looking Eyes PERRL, conjunctivae normal, anicteric sclerae ENMT external ear and nose normal, oropharynx normal Respiratory normal respiratory effort, lungs clear to auscultation Cardiovascular Rate/Rhythm: regular rate and regular rhythm Gastrointestinal (Abdomen) Inspection/Auscultation: abdomen normal to inspection and normal bowel sounds; abdomen not distended Musculoskeletal No pedal edema. Multiple missing toes. Eschar on left great toe Dressing over right foot Skin +sacral wound. Dressing over right groin wound Neurologic PERRL, EOMI, accommodation nl, no face palsy, no dysarthria Psychiatric A+Ox3, euthymic affect Discharge Data 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 LAUNDRY DETERGENT AT Allergy Severe SEVERE Uncoded 08/08/24 17:21 [facility] Consultations 08/08/24 17:20 ED Decision to Admit Stat 08/08/24 20:58 Consult Urology Routine 08/12/24 12:00 Consult Vascular Surgery Routine 08/13/24 11:15 Consult Infectious Diseases Routine 08/13/24 13:43 Consult Podiatry Routine Procedures Performed Operation Date: 08/10/24 11:00 Actual Procedures p Cystoscopy, Litholapaxy, Clot evacuation, Fulguration of Prostatic Varicosities(Not Applicable) - Cornell Hughes, Ordered Studies 08/09/24 15:06 CT abdomen pelvis wo/w con Routine 08/12/24 15:21 CTA LE RT w and wo if don [CT angio LE RT w inc wo if don] Routine Hospital Course (1) Positive culture findings in wound: (2) Gross hematuria: (3) Sacral wound: (4) PAD (peripheral artery disease): (5) Type 2 diabetes mellitus: (6) Essential hypertension: (7) Dyslipidemia: (8) Hypothyroidism: Plan 74 year old wheelchair bound male with PMH significant for type 2 diabetes, hyperlipidemia, diabetic retinopathy, peripheral artery disease, atherosclerosis, 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 Right groin wound Right Foot Wound Right foot osteomyelitis Sacral 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 Peripheral Artery Disease Leg CTA:Status post multiple amputations of the right foot with osteomyelitis of the hallux, the 2nd and 3rd digits at the amputation stumps. Extensive atherosclerotic involvement of RLE vasculature. Bypass graft arising from the distalmost common femoral artery on the right side that is largely patent with severe multifocal stenoses seen in the plantar aspect of the right foot PICC line dislodgement Recent right groin debridement for superficial incisional dehiscence and LLE angiogram for PVD/left great toe gangrene on 07/25/[address] Ross - on 6 weeks of ertapenem after OR cultures grew staph and enterococcus PICC was removed and US guided PIV placed in ED Podiatry evaluated. No active infection in foot wound. No surgery recommended at this time Vascular surg evaluated. Patient to follow up his Vascular surgeon outpatient ID evaluated and recommended only IV ertapenem till 08/15/24 Patient completed IV ertapenem inpatient prior to discharge to [facility] for rehab Continue aspirin and Plavix daily for vasculopathy Continue Lipitor Continue bilateral foot wound care, including Dakins wet to dry dressings for the right foot once daily and application of Betadine to the eschar left great to daily. Continue post op shoes b/l for short distance and transfer as needed. Patient to follow up in wound care center following discharge for ongoing care. Gross hematuria Possible complicated urinary tract infection Severe enlarged prostate with massive varicosities--POA In setting of dual antiplatelet therapy --CT ABD: Apparent increased attenuating contents within the bladder, which is incompletely distended, and contains a Farrar catheter, possibly representing blood products. Thickening of the urinary bladder wall and mucosal hyperenhancement, as above, may be seen with cystitis. Markedly enlarged prostate gland. No renal or ureteral stone or renal mass. --S/P Cystoscopy with Cystolitholapaxy, Clot evacuation, Fulguration of bleeding prostatic Varicosities, and fulguration of bladder neck by on --Blood culture: Negative to date --Urine culture--grew Jyoti Patient to follow up with Urology outpatient Continue farrar for now until follow up with Urology. This will also help wound healing Avoid anticoagulation as much as possible Pressure ulcer of sacral region, at least Stage 2, POA Turn and reposition q2hr Continue wound care DM II Continue SURFACE GRINDER TENDER antidiabetic regimen. Follow up blood glucose trend at rehab and adjsut as needed Hypertension Continue SURFACE GRINDER TENDER 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 H/O CVA Continue aspirin, Plavix, statin Hyperlipidemia Continue atorvastatin and colesevelam Hypothyroidism Continue levothyroxine GERD Continue pantoprazole BPH Continue tamsulosin Total Time Total Time Spent Total Time Spent (In Minutes): 35 Total Time Includes: Examination of the Patient, Discharge Planning and Medication Reconciliation Discharge Plan Discharge Items Patient Disposition: Transfer Inpatient Rehab Fac Reason For Visit: Hematuria and PICC dislodgement Discharge Diagnosis: Recent Osteomyelitis Pressure ulcers Hematuria status post cystoscopy with cystolitholapaxy, clot evacuation and fulguration Condition on Discharge: Fair Activity: As commented below Activity Comment: Continue PT/OT at rehab Non-emergency contact: Primary Care Provider, Surgeon and Urologist Call non-emergency contact if: you have any medication questions and your symptoms worsen Follow-up/Referrals: Gabriele Dumas MD [Primary Care Provider] - Diet: Carb Consistent or DM2 Addtl Attending Provider Instructions: Mr Santos You were hospitalized and managed for the above listed diagnosis. You also had cystoscopy for treatment of your bloody urine while in the hospital. You are being discharged to rehab to complete treatment. You completed your IV ertapenem in the hospital. You are being discharged with the farrar to help with healing of your groin wound and pressure sores. Please monitor blood glucose at rehab Please ensure follow up with Urology, your Vascular surgeon and Primary Doctor. It was a pleasure taking care of you. Pending Studies at Discharge: No Stand-Alone Forms: My [facility] Skilled Items Patient informed of condition?: Yes DNR: No Discharge Level of Care: Acute rehab Communicable Disease: No Discharge Prognosis: Stable Lines: None Urinary Catheter: Yes Medications and DC Order Prescriptions: Continued amlodipine 5 mg tablet 5 mg PO QAM aspirin 81 mg Tablet,Delayed Release (Dr/Ec) 81 mg PO QAM glimepiride 4 mg tablet 4 mg PO BID metformin 500 mg tablet extended release 24 hr 1,500 mg PO QAM oxycodone 5 mg tablet 5 mg PO BID PRN (Reason: Pain, Severe) liraglutide 0.6 mg/0.1 mL (18 mg/3 mL) pen injector 1.8 mg subcut QAM atorvastatin 40 mg tablet 40 mg PO QAM silver sulfadiazine [Silvadene] 1 % Cream 1 applic TOPICAL DAILY Rx Instructions: APPLY TO OPEN ASPECT OF RIGHT FOOT AMPUTATION SITE. apply a 1.5 mm thickness sennosides [senna] 8.6 mg Tablet 8.6 mg PO BID acetaminophen [Tylenol] 325 mg Tablet 650 mg PO Q6H PRN (Reason: PAIN/FEVER) guar gum Powder 1 tbsp PO DAILY Rx Instructions: mix into at least 4 oz water or juice before administering sennosides-docusate sodium [Senna Plus] 8.6-50 mg Tablet 2 tab-cap PO QDL Tums E-X 300 mg (750 mg) Tablet,Chewable 300 mg PO Q6H PRN (Reason: Heartburn) melatonin 3 mg Tablet 3 mg PO HS clopidogrel [Plavix] 75 mg Tablet 75 mg PO QAM levothyroxine 25 mcg Tablet 25 mcg PO DAILYBB hydrocortisone acetate [Anusol-HC] 25 mg Suppository 25 mg ID BID PRN (Reason: Hemorrhoids) dibucaine 1 % Ointment 1 applic TOPICAL BID Rx Instructions: APPLY TO AFFECTED AREA tamsulosin [Flomax] 0.4 mg Capsule 0.4 mg PO HS colesevelam [WelChol] 625 mg Tablet 625 mg PO BIDM bisacodyl 10 mg Suppository 10 mg ID DAILY PRN (Reason: Constipation) pantoprazole 40 mg Tablet,Delayed Release (Dr/Ec) 40 mg PO DAILY ferrous sulfate 325 mg (65 mg iron) Tablet 325 mg PO TIDM docusate sodium 100 mg Capsule 100 mg PO BID PRN (Reason: Constipation) gabapentin 300 mg Capsule 600 mg PO HS gabapentin 100 mg Capsule 100 mg PO .BID QAM & AFTERNOON insulin lispro 100 unit/mL Solution 1 sliding scale dose SUBCUT USEASDIRECTD sodium hypochlorite 0.25 % Solution 1 applic TOPICAL Q8H Jardiance 25 mg Tablet 25 mg PO QAM lidocaine HCl 2 % Gel 1 applic TOPICAL Q8H PRN (Reason: APPLY TO PENIS NEEDED) Phenol Liquid [place] 1 spray mucous membrane Q4H Changed polyethylene glycol 3350 [Miralax] 17 gram/dose Powder 17 g PO QPM PRN (Reason: Constipation) Qty: 0 0RF Discontinued fluconazole 100 mg Tablet 100 mg PO DAILY Rx Instructions: ORDERED 08/06/24 FOR 3 DAYS methocarbamol 500 mg Tablet 500 mg PO BID linezolid 600 mg tablet 600 mg PO DIRECTED Rx Instructions: ORDERED 08/06/24 FOR 4 DAYS/ 8 TABS. doxycycline hyclate 100 mg tablet 100 mg PO BID Rx Instructions: ORDERED 08/06/24 FOR 10 DAYS ertapenem 1 gram Recon Soln 1 g IV DAILY Rx Instructions: ENDS 08/16/24. sodium chloride 0.9 % (flush) [Normal Saline Flush] Syringe 10 ml IV Q12H Rx Instructions: administer before and after IV drug administration as part of [facility] protocol heparin, porcine (PF) 5,000 unit/mL Syringe 5,000 unit SUBCUT TID Discharge Orders: Discharge Order (Routine); Ordered 08/15/24 Ordered By: Harmony Mendiola Admission Data Admit Date/Time: 08/08/24 19:07 Attending Provider: Harmony Mendiola I. Admit Provider: Giselle Antunez Primary Care Provider: Gabriele Dumas Other Providers: Chivo Agarwal [facility]; Jose Alejandro,Susana; Giselle Antunez; Ortega Nichole; Malachi Leslie; Drake Muller; Nilson Ochoa; Candido Canales I.; Karan Moe II; Elena Tuttle; Jasiel Arizmendi; Reji Vaz; Jamila Hoyt; Ciro Andrade; Paul Kearney; [facility] Other Interventions: Discharge Summary Assessment (RN) Last Done: 08/15/24 12:01
[2024-08-15 12:04] VITALS: PULSE 90
[2024-08-15] MEDS ORDERED: LANTUS PER UNIT CHARGE SC SCH (21:00)
[2024-08-19 20:17] LABS: Source BLADDER STONE
== END 2024-08-15 13:11 | DRG 665 ==
LOC: ED 13:42 → 4W 19:07 → SUATTDRO 19:07 → 4W 20:24
DX: N40.1 Benign prostatic hyperplasia with lower urinary tract symptoms; Y92.019 Unspecified place in single-family (private) house as the place of occurrence of the external cause; E11.319 Type 2 diabetes mellitus with unspecified diabetic retinopathy without macular edema; E11.51 Type 2 diabetes mellitus with diabetic peripheral angiopathy without gangrene; Y83.8 Other surgical procedures as the cause of abnormal reaction of the patient, or of later complication, without mention of misadventure at the time of the procedure; T82.524A Displacement of infusion catheter, initial encounter; Z79.02 Long term (current) use of antithrombotics/antiplatelets; I35.0 Nonrheumatic aortic (valve) stenosis; L97.412 Non-pressure chronic ulcer of right heel and midfoot with fat layer exposed; Z99.3 Dependence on wheelchair; Z79.84 Long term (current) use of oral hypoglycemic drugs; E11.3291 Type 2 diabetes mellitus with mild nonproliferative diabetic retinopathy without macular edema, right eye; R33.9 Retention of urine, unspecified; B37.49 Other urogenital candidiasis; L97.528 Non-pressure chronic ulcer of other part of left foot with other specified severity; N21.0 Calculus in bladder; E11.69 Type 2 diabetes mellitus with other specified complication; L89.152 Pressure ulcer of sacral region, stage 2; N36.8 Other specified disorders of urethra; N32.89 Other specified disorders of bladder; I73.9 Peripheral vascular disease, unspecified; M86.8X7 Other osteomyelitis, ankle and foot; T81.31XA Disruption of external operation (surgical) wound, not elsewhere classified, initial encounter; K21.9 Gastro-esophageal reflux disease without esophagitis; E43 Unspecified severe protein-calorie malnutrition; L97.502 Non-pressure chronic ulcer of other part of unspecified foot with fat layer exposed; E11.621 Type 2 diabetes mellitus with foot ulcer; R31.0 Gross hematuria; I86.8 Varicose veins of other specified sites

== ENCOUNTER 2024-08-26 09:20 | Inpatient (IN) ==
--- NOTE | 2024-08-26 09:23 | Emergency Department Note ---
Impression & Plan Sepsis, Indwelling Ware catheter present, Acute prostatitis, Emphysematous cystitis, Gross hematuria ED Provider Note NAME: CORAL NDIAYE AGE: 74 SEX: M : 1950 ARRIVES VIA: Ambulance INFORMANT: Patient, EMS ED PROVIDER(S): Kenan Nance DO CHIEF COMPLAINT: gross hematuria HPI: This is a 74-year-old male with the PMHx of Guillain-Ramírez syndrome, recent stroke now on rehabilitation services on antiplatelet therapy, BPH with urinary retention requiring urethral catheterization, right foot osteomyelitis s/p sacral pressure injuries, and peripheral artery disease s/p vascular procedures presenting to [facility] for further evaluation of gross hematuria. Patient is accompanied by EMS who provide additional history. he states he has been having severe pain over the last few days mostly isolated to his lower abdomen and penis. Patient states he has had significant hematuria. He states that his catheter has been exchanged 7 times since being at rehabilitation services. he is very frustrated with his facility. It is reported that his Plavix was held this morning. They first noticed the gross hematuria within the catheter collection bag around 1900 last night. They deny fever or chills. No cough or congestion. Denies chest pain or palpitations. No shortness of breath. They deny nausea and vomiting. No recent changes in bowel movements. Patient denies recent changes in medications or OTC supplements. Patient offers no other complaints, today. ADDITIONAL HISTORY OBTAINED: Per HPI Chronic Medical/Social Conditions Affecting Care: Per HPI PAST MEDICAL HISTORY: See Below PAST SURGICAL HISTORY: See Below FAMILY HISTORY: See Below SOCIAL HISTORY: See Below HOME MEDICATIONS: See Below ALLERGIES: See Below VITALS: See Below PHYSICAL EXAMINATION: GENERAL: Sitting up in bed, alert, ill appearing EYE EXAM: normal conjunctiva. PERRL and EOM's grossly intact. OROPHARYNX: no exudate, no erythema, lips, buccal mucosa, and tongue normal and mucous membranes are moist NECK: supple, no nuchal rigidity, no adenopathy, non-tender LUNGS: Clear to auscultation. Normal chest wall mechanics HEART: no murmurs, tachycardic rate, regular rhythm ABDOMEN: abdomen soft, some TTP to lower quadrants, no rebound or rigidity BACK: Back is symmetrical on inspection and there is no deformity, no midline tenderness, no CVA tenderness. SKIN: no rashes. Ecchymoses over the abdomen. UPPER EXTREMITIES: upper extremities are grossly normal. LOWER EXTREMITIES: No pitting edema. Right foot deformity. NEURO EXAM: Normal sensorium, cranial nerves II-XII grossly intact, normal speech, no gross weakness of arms, no gross weakness of legs. MEDICAL DECISION MAKING: Differential diagnoses includes but not limited to gross hematuria, urethral injury, bladder injury, BPH, complicated UTI, pyelonephritis, ureterolithiasis, prostatitis, sepsis, bacteremia, pneumonia, viral URI, electrolyte derangements, dehydration, traumatic urethral catheter insertion In summary, this is a 74 year old male who presented with gross hematuria. Differential as above. Nursing notes and pertinent past medical records reviewed. Vital signs reviewed and the patient is tachycardic but otherwise afebrile and hemodynamically stable. History and presentation revealed complicated recent history with inpatient rehabilitation services for strokes over the past year. Does have known BPH and chronic indwelling urethral catheter. This has been exchanged multiple times. Physical examination revealed large amount of blood clots at the urethral meatus. Dark red urine with intermittent clots present in collecting system. As a result of my initial evaluation, we will plan for evaluation of possible UTI and abdominal/pelvic pathology with labs and imaging. Will start continuous bladder irrigation given clot burden. Plan for Urojet for pain control. Diagnostics interpreted by me include EKG and cardiac monitoring as listed below: -Cardiac Monitoring: An order was placed for continuous cardiac monitoring. The monitor shows a rate of 90-130 with regular rhythm. -ECG: EKG independently interpreted by me reveals sinus tachycardia at a rate of [address] segment changes to suggest STEMI. QTc is 447ms. EKG determined at sinus tachycardia. Patient completed laboratory studies and imaging. Results independently interpreted by me are leukocytosis. Does have mild anemia but this is actually improved from baseline. Doubt significant blood loss but does have gross hematuria on exam. The patient was managed with continuos bladder irrigation. At 1037, I reviewed the patient's lab work showing a white blood cell count of 20,000. The patient is also tachycardic. Patient meets SIRS criteria. Will order blood cultures. Plan for antibiotics for likely complicated UTI. Will utilize IV ceftriaxone while in the emergency department. No significant kidney dysfunction. Electrolytes are normal. Urinalysis shows gross blood as well as pyuria and bacteria present. CT abdomen/pelvis independently interpreted by me reveals clots within the bladder. He does have air within the bladder. Likely emphysematous cystitis based on UA. Could be from recent manipulation as well. There was some concerns for prostatitis. We will likely transition the patient to a fluoroquinolone from ceftriaxone. Will likely admit the patient for complicated UTI and continuous bladder irrigation. Tachycardia improved with IVFR and pain control. He was given a one time dose of morphine for further analgesia. Given sepsis 2/2 complicated UTI vs prostatitis, he will require admission. He will also need to have continuous bladder irrigation for gross hematuria. On reevaluation, this was improved to a light red. Patient was discussed with the hospitalist group and subsequently admitted. Consults/Care Managements Discussions: Per MDM ER treatment provided: See above Procedures:none Critical Care: None The chart was completed utilizing Oncodes[employer] voice recognition software. Grammatical errors, random word insertions, pronoun errors, and incomplete sentences are an occasional consequence of this system due to software limitations, ambient noise, and hardware issues. Any formal questions or concerns about the content, text, or information contained within the body of this dictation should be directly addressed to the physician for clarification. 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 Diabetic ulcer of right foot associated with diabetes mellitus due to underlying condition, with fat layer exposed Pressure injury of toe of left foot, unstageable Ulcer of left great toe due to diabetes mellitus Encounter for pre-operative examination Positive culture findings in wound Sacral wound Gross hematuria (Acute) PAD (peripheral artery disease) Medical History Hypothyroidism 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 diabetes mellitus ICAO (internal carotid artery occlusion) bilateral Essential hypertension Guillain-[place] syndrome after administration of vaccine Dyslipidemia Embolic stroke involving right middle cerebral artery Osteomyelitis of ankle or foot, right, acute Presence of IVC filter Seizure-like activity Type 2 diabetes mellitus Carotid artery disease Kidney stone Surgical History S/P IVC filter History of thrombectomy S/P debridement multiple 07/25/24 right groin incision 07/02/24, 05/16/24 S/P femoral-tibial bypass S/P tonsillectomy S/P total hip arthroplasty S/P cataract surgery 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 Family History Other Cancer Diabetes Heart disease Social History Smoking Status: Never smoker Hx Alcohol Use: No Hx Substance Use: No Preferred Language: Khmer Communication Ability: Effective Arabic Linguist Required: No Beliefs That Will Affect Care: None Current Living Situation: Rehab Current Living Situation Comment: patient currently at [facility] for rehab, normally lives with friend Seng Other Information That Helps Us Care for You: No Feels Safe at Home: Yes Safety Concerns: Feels Safe At This Time Assistive Devices: Hospital Bed, Walker and Wheelchair Allergies 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--ALL VACCINES LAUNDRY DETERGENT AT Allergy Severe SEVERE Uncoded 08/26/24 11:16 [facility] Home Meds Home Medications Medication Instructions Recorded Confirmed amlodipine 5 mg tablet 5 mg PO QAM 03/23/24 08/26/24 liraglutide 0.6 mg/0.1 mL (18 mg/3 1.8 mg subcut QAM 03/23/24 08/26/24 mL) subcutaneous pen injector metformin 500 mg tablet,extended 1,500 mg PO QAM 03/23/24 08/26/24 release 24 hr oxycodone 5 mg tablet 5 mg PO BID PRN Pain, Severe 03/23/24 08/26/24 acetaminophen 325 mg tablet 650 mg PO Q6H PRN Pain 08/08/24 08/26/24 (Tylenol) atorvastatin 40 mg tablet 40 mg PO QAM 08/08/24 08/26/24 bisacodyl 10 mg rectal suppository 10 mg HI DAILY PRN Constipation 08/08/24 08/26/24 clopidogrel 75 mg tablet (Plavix) 75 mg PO QAM 08/08/24 08/26/24 colesevelam 625 mg tablet (WelChol) 625 mg PO BIDM 08/08/24 08/26/24 docusate sodium 100 mg capsule 100 mg PO BID PRN Constipation 08/08/24 08/26/24 empagliflozin 25 mg tablet 25 mg PO QAM 08/08/24 08/26/24 (Jardiance) ferrous sulfate 325 mg (65 mg 325 mg PO TIDM 08/08/24 08/26/24 iron) tablet gabapentin 100 mg capsule 100 mg PO BID 08/08/24 08/26/24 gabapentin 300 mg capsule 600 mg PO HS 08/08/24 08/26/24 levothyroxine 25 mcg tablet 25 mcg PO DAILYBB 08/08/24 08/26/24 lidocaine HCl 2 % topical gel 1 applic topical DIRECTED PRN 08/08/24 08/26/24 APPLY TO PENIS NEEDED melatonin 3 mg tablet 6 mg PO HS 08/08/24 08/26/24 pantoprazole 40 mg tablet,delayed 40 mg PO DAILYBB 08/08/24 08/26/24 release sennosides 8.6 mg tablet (senna) 8.6 mg PO BID 08/08/24 08/26/24 sennosides 8.6 mg-docusate sodium 2 tab-cap PO QDL PRN Constipation 08/08/24 08/26/24 50 mg tablet (Senna Plus) tamsulosin 0.4 mg capsule (Flomax) 0.4 mg PO HS 08/08/24 08/26/24 acetaminophen 500 mg tablet 500 mg PO Q4H PRN Fever 08/26/24 08/26/24 glimepiride 1 mg tablet 2 mg PO BID 08/26/24 08/26/24 glucagon HCl 1 mg solution for 1 mg IM DIRECTED PRN 08/26/24 08/26/24 injection (Glucagon (HCl) Hypoglycemia Emergency Kit) hydrocortisone 2.5 % topical cream 1 applic HI BID 08/26/24 08/26/24 with perineal applicator (Proctosol HC) insulin aspart U-100 100 unit/mL 1 sliding scale dose subcut 08/26/24 08/26/24 (3 mL) subcutaneous pen USEASDIRECTD loperamide 2 mg capsule 2 mg PO Q6H PRN Diarrhea 08/26/24 08/26/24 ondansetron 4 mg disintegrating 4 mg PO Q6H PRN Nausea And Vomiting 08/26/24 08/26/24 tablet polyethylene glycol 3350 17 17 g PO QDL PRN Constipation 08/26/24 08/26/24 gram/dose oral powder (Miralax) sodium phosphates 19 gram-7 118 ml HI DAILY PRN Constipation 08/26/24 08/26/24 gram/118 mL enema (Fleet Enema) Results & Data (ED) Vital Signs Vital Signs - 24 hr 08/26/24 09:28 08/26/24 09:38 08/26/24 11:30 Temperature 36.6 C Temperature Source Oral Pulse Rate 112 H 108 H Pulse Rate [Apical] 105 H Respiratory Rate 22 20 Respiratory Effort / Characteristics Non-Labored Spontaneous Non-Labored Spontaneous Respiratory Depth Normal Normal Blood Pressure 136/97 Blood Pressure Mean 110 Blood Pressure Position Semi-fowlers Pulse Oximetry 100 98 Oxygen Delivery Method Room Air Room Air Sepsis Recent Fever Within 48 Hours No Sepsis New/Unexplained Change in Mental Status N/A Sepsis Action Taken by Nursing Physician Notified Laboratory Data 08/26/24 14:49 08/26/24 09:30 Lab Results 08/26/24 08/26/24 08/26/24 Range/Units 09:30 10:00 11:45 WBC 20.42 H (4.8-10.8) K/ul RBC 4.30 L (4.70-6.10) M/uL Hgb 11.6 L (14.0-18.0) g/dl Hct 36.9 L (42.0-52.0) % MCV 85.8 (80.0-100.0) fL MCH 27.0 (25.0-34.0) pg MCHC 31.4 L (32.0-36.0) g/dL RDW Std Deviation 48.7 H (36.4-46.3) fL RDW Coeff of Raymond 15.5 H (11.5-14.5) % Plt Count 446 H (130-400) K/uL MPV 10.4 (9.4-12.4) fL Immature Gran % (Auto) 0.7 % Neut % (Auto) 83.8 % Lymph % (Auto) 7.9 % Tillman % (Auto) 5.1 % Eos % (Auto) 2.1 % Baso % (Auto) 0.4 % Neut # (Auto) 17.10 H (1.40-6.50) K/uL Lymph # (Auto) 1.62 (1.20-3.40) K/uL Tillman # (Auto) 1.05 H (0.11-0.59) K/uL Eos # (Auto) 0.43 (0.00-0.50) K/uL Baso # (Auto) 0.08 (0.00-0.20) K/uL Immature Gran # (Auto) 0.14 (0.01-0.20) K/uL Sodium 136 (136-145) mmol/L Potassium 4.1 (3.5-5.1) mmol/L Chloride 102 (98-107) mmol/L Carbon Dioxide 26 (21-32) mmol/L Anion Gap 8 (3-11) BUN 21 (6-23) mg/dl Creatinine 0.59 L (0.6-1.4) mg/dl Est Cr Clr Drug Dosing 115.2 ml/min eGFR 101.18 BUN/Creatinine Ratio 35.6 H (10-20) Glucose 296 H (70-99(Fasting)) mg/dl Lactate 1.6 (0.4-2.0) mmol/L Calcium 9.2 (8.6-10.3) mg/dl Total Bilirubin 0.6 (0.2-1.0) mg/dl AST 9 L (13-39) U/L ALT 9 (7-52) U/L Alkaline Phosphatase 104 (34-104) U/L Total Protein 6.8 (6.0-8.3) gm/dl Albumin 3.6 (3.4-5.0) gm/dl Globulin 3.2 (2.5-4.0) gm/dl Albumin/Globulin Ratio 1.1 (0.9-2) Urine Color See Comment Urine Appearance Cloudy A (Clear) Urine pH Not Reportable Ur Specific [place] 1.035 H (1.000-1.030) Urine Protein Not Reportable Urine Glucose (UA) Not Reportable Urine Ketones Not Reportable Urine Blood Not Reportable Urine Nitrite Not Reportable Urine Bilirubin Not Reportable Urine Urobilinogen Not Reportable Ur Leukocyte Esterase Not Reportable Urine RBC >20 H (0-2) /hpf Urine WBC >50 H (0-5) /hpf Ur Epithelial Cells 0-2 (0-2) /hpf Urine Bacteria 1+ H (None Seen) Urine Yeast Present A (None Prsent) Urine Comment Administered Medications Acetaminophen (Acetaminophen 500 Mg Tab) 1,000 mg PO Q8H [facility] Stop: 09/25/24 13:44 Last Admin: 08/26/24 21:03 Dose: 1,000 mg Documented By: Admin: 08/26/24 18:23 Dose: 1,000 mg Documented By: EDMUND Ferrous Sulfate (Ferrous Sulfate 325 Mg Tab) 325 mg PO TIDM BONNIE Stop: 09/25/24 16:59 Last Admin: 08/26/24 18:24 Dose: 325 mg Documented By: EDMUND Gabapentin (Gabapentin 300 Mg Cap) 600 mg PO [facility] Stop: 09/25/24 20:59 Last Admin: 08/26/24 21:01 Dose: 600 mg Documented By: JOSE Hydrocortisone (Hydrocortisone Hc 2.5% Crm 30gm Tube) 1 appln EXT BID [facility] Stop: 09/25/24 20:59 Last Admin: 08/26/24 21:02 Dose: 1 appln Documented By: JOSE Cefepime HCl (Maxipime 2000mg) 2,000 mg in 20 mls @ 5 mls/min IV Q8H [facility]; Protocol Stop: 09/05/24 18:59 Last Admin: 08/26/24 18:26 Dose: 5 mls/min Documented By: EDMUND Insulin Aspart (Insulin Aspart Per Unit Charge) 0 units SC [facility] Stop: 09/25/24 14:44 Last Admin: 08/26/24 21:02 Dose: 1 units Documented By: JOSE Co-signed By: KELLIE Admin: 08/26/24 18:24 Dose: Not Given Documented By: Admin: 08/26/24 18:22 Dose: 3 units Documented By: EDMUND Co-signed By: DOMINGO Insulin Glargine (Lantus Per Unit Charge) 0 units SC [facility]; Protocol Stop: 09/25/24 20:59 Last Admin: 08/26/24 20:54 Dose: Not Given Documented By: JOSE Lactobacillus Acidophilus (Advanced Probiotic 625 Mg Capsule) 1,250 mg PO DAILY [facility] Stop: 09/25/24 14:14 Last Admin: 08/26/24 18:23 Dose: 1,250 mg Documented By: EDMUND Lidocaine HCl (Lidocaine 2% Jelly 5 Ml Tube) 5 ml EXT BID [facility]ONNIE Stop: 09/25/24 18:14 Last Admin: 08/26/24 18:23 Dose: 5 ml Documented By: EDMUND Melatonin (Melatonin 3 Mg Tab) 6 mg PO HS BONNIE Stop: 09/25/24 20:59 Last Admin: 08/26/24 21:02 Dose: 6 mg Documented By: JOSE Miscellaneous (Colesevelam [Welchol] 625 Mg Tablet)--Order Awaiting Action) 1 each N/A QS BONNIE Stop: 09/25/24 15:59 Last Admin: 08/26/24 17:03 Dose: Not Given Documented By: EDMUND Sennosides (Senna 8.6 Mg Tab) 8.6 mg PO BID BONNIE Stop: 09/25/24 20:59 Last Admin: 08/26/24 21:02 Dose: 8.6 mg Documented By: JOSE Tamsulosin HCl (Tamsulosin Hcl 0.4 Mg Cap) 0.4 mg PO HS BONNIE Stop: 09/25/24 20:59 Last Admin: 08/26/24 21:03 Dose: 0.4 mg Documented By: JOSE Discontinued Medications Ceftriaxone Sodium (Rocephin) 1,000 mg in 50 mls @ 100 mls/hr IV NOW STA Stop: 08/26/24 11:05 Last Infusion: 08/26/24 13:00 Dose: Infused Documented By: Admin: 08/26/24 12:18 Dose: 100 mls/hr Documented By: MMF Ciprofloxacin (Cipro / D5w) 400 mg in 200 mls @ 100 mls/hr IV NOW STA; Protocol Stop: 08/26/24 13:10 Last Infusion: 08/26/24 16:28 Dose: Infused Documented By: Admin: 08/26/24 13:28 Dose: 100 mls/hr Documented By: GCC Ioversol (Optiray 320 100ml) 93 ml IV ONCE ONE Stop: 08/26/24 10:34 Last Admin: 08/26/24 10:33 Dose: 93 ml Documented By: YOON Lidocaine HCl (Lidocaine 2% Jelly 5 Ml Tube) 5 ml EXT NOW ONE Stop: 08/26/24 09:33 Last Admin: 08/26/24 10:40 Dose: Not Given Documented By: MMF Lidocaine HCl (Lidocaine 2% Jelly 5 Ml Tube) 5 ml EXT NOW ONE Stop: 08/26/24 09:36 Last Admin: 08/26/24 10:40 Dose: 5 ml Documented By: MMF Morphine Sulfate (Morphine Sulfate 4 Mg/Ml 1 Ml Carp\Vial) 4 mg IV NOW STA Stop: 08/26/24 11:18 Last Admin: 08/26/24 11:32 Dose: 4 mg Documented By: MMF Morphine Sulfate (Morphine Sulfate 4 Mg/Ml 1 Ml Carp\Vial) 3 mg IV NOW STA Stop: 08/26/24 15:17 Last Admin: 08/26/24 15:52 Dose: 3 mg Documented By: WILIAN Imaging Data Radiologist's Impression: Abdomen/Pelvis CT 08/26/24 10:[address] WITH IV CONTRAST CT DOSE: 1195.52 mGy.cm HISTORY: gross hematuria TECHNIQUE: Multiaxial CT images of the abdomen and pelvis were performed following the IV administration of 90 cc of Optiray, A dose lowering technique was utilized adhering to the principles of ALARA. COMPARISON STUDY: 08/09/2024 and 11/10/2022 FINDINGS: There are diffuse coronary artery calcifications. There are cardiac valvular calcifications. ABDOMEN: There are gallstones without evidence of acute cholecystitis. Liver, spleen, and adrenal glands are unremarkable. There is a 1.5 cm oval cystic finding at the pancreatic body, stable. Pancreas is otherwise unremarkable. There are a few stable cyst at the kidneys. There is no hydronephrosis. No renal or ureteral calculi. There are scattered atherosclerotic calcifications. No abdominal aortic aneurysm. Pelvis: Prostate is prominently enlarged and diffusely heterogeneous. There are stable prostate calcifications. Urinary bladder is mildly distended. There is diffuse wall thickening of the urinary bladder. There is small amount of gas within the urinary bladder and a small amount of gas within the anterior wall of the urinary bladder. There is a 4 cm area of lobulated increased density posteriorly and inferiorly within the urinary bladder which could represent clot. Stable mild prominence of the left seminal vesicle. There is mild sigmoid diverticulosis. No acute diverticulitis. No bowel inflammation or obstruction. No free fluid or free air. There is a possible superficial soft tissue wound at the right inguinal region with a stable mildly enlarged right inguinal lymph node versus other stable small soft tissue density. No fluid collection or abscess seen in the region. No enlarged adenopathy otherwise. Osseous structures: Stable right hip prosthesis. Stable few scattered sclerotic osseous foci at the pelvis. There are lumbar spine degenerative changes. IMPRESSION: 1. Findings consistent with emphysematous cystitis. 2. Likely clot within the urinary bladder. 3. Possible prostatitis. 4. Possible superficial soft tissue wound at the right inguinal region. 5. No other acute findings seen. Otherwise as described. ACT 112: Negative or not required by law. The above report was generated using voice recognition software. It may contain grammatical, syntax or spelling errors. Electronically signed by: Casey Anderson M.D. 08/26/2024 11:01 AM Discharge Plan Visit Data Chief Complaint: Hematuria Stated Complaint: HEMATURIA ED Provider: Kenan Nance Discharge Problem: Sepsis, Indwelling Ware catheter present, Acute prostatitis, Emphysematous cystitis, Gross hematuria Patient Disposition: Admitted As Inpatient Condition: Fair Discharge Instructions Interventions: ED Discharge Assessment Last Done: 08/26/24 15:23
[2024-08-26] MEDS ORDERED: LIDOCAINE 4% TOP 50 ML VIAL EXT ONE (09:35)
[2024-08-26 09:49] LABS: Hematocrit (blood only) 36.9 % (42.0-52.0); Hemoglobin 11.6 g/dl (14.0-18.0); Immature Granulocytes # (auto) 0.14 K/uL (0.01-0.20); Immature Granulocytes % (auto) 0.7 %; Mean Corpuscular Hemoglobin 27.0 pg (25.0-34.0); Mean Corpuscular Volume 85.8 fL (80.0-100.0); Platelet Count 446 K/uL (130-400); RDW Standard Deviation 48.7 fL (36.4-46.3); Red Blood Count 4.30 M/uL (4.70-6.10); White Blood Count 20.42 K/ul (4.8-10.8)
[2024-08-26 10:05] LABS: Alanine Aminotransferase 9.0 U/L (7-52); Albumin Globulin Ratio 1.1 (0.9-2); Alkaline Phosphatase 104.0 U/L (34-104); Anion Gap 8.0 (3-11); Bilirubin,Total 0.6 mg/dl (0.2-1.0); Blood Urea Nitrogen 21.0 mg/dl (6-23); Calcium 9.2 mg/dl (8.6-10.3); Carbon Dioxide 26.0 mmol/L (21-32); Chloride 102.0 mmol/L (98-107); Creatinine Clr Calc Pharmacy 115.2 ml/min; Globulin 3.2 gm/dl (2.5-4.0); Glucose 296.0 mg/dl (70-99(Fasting)); Potassium 4.1 mmol/L (3.5-5.1); Sodium 136.0 mmol/L (136-145); Total Protein 6.8 gm/dl (6.0-8.3)
[2024-08-26] MEDS: OPTIRAY 320 100ml IV ONE (10:33)
[2024-08-26 10:39] LABS: Appearance Urine Cloudy (Clear)
[2024-08-26] MEDS: LIDOCAINE 2% JELLY 5 ML TUBE EXT ONE ×2 (10:40)
[2024-08-26 10:43] LABS: Epithelial Cell Urine 0-2 /hpf (0-2)
--- NOTE | 2024-08-26 11:03 | CT Scan Report ---
ABDOMEN AND PELVIS CT WITH IV CONTRAST CT DOSE: 1195.52 mGy.cm HISTORY: gross hematuria TECHNIQUE: Multiaxial CT images of the abdomen and pelvis were performed following the IV administrat ion of 90 cc of Optiray, A dose lowering technique was utilized adhering to the principles of ALARA. COMPARISON STUDY: 08/09/2024 and 11/10/2022 FINDINGS: There are diffuse coronary artery calcifications. There are cardiac valvular calcifications . ABDOMEN: There are gallstones without evidence of acute cholecystitis. Liver, spleen, and adrenal gla nds are unremarkable. There is a 1.5 cm oval cystic finding at the pancreatic body, stable. Pancreas is otherwise unremarkable. There are a few stable cyst at the kidneys. There is no hydronephrosis. No renal or ureteral calculi. There are scattered atherosclerotic calcifications. No abdominal aortic a neurysm. Pelvis: Prostate is prominently enlarged and diffusely heterogeneous. There are stable prostate calci fications. Urinary bladder is mildly distended. There is diffuse wall thickening of the urinary bladd er. There is small amount of gas within the urinary bladder and a small amount of gas within the ante rior wall of the urinary bladder. There is a 4 cm area of lobulated increased density posteriorly and inferiorly within the urinary bladder which could represent clot. Stable mild prominence of the left seminal vesicle. There is mild sigmoid diverticulosis. No acute diverticulitis. No bowel inflammatio n or obstruction. No free fluid or free air. There is a possible superficial soft tissue wound at the right inguinal region with a stable mildly enlarged right inguinal lymph node versus other stable sm all soft tissue density. No fluid collection or abscess seen in the region. No enlarged adenopathy ot herwise. Osseous structures: Stable right hip prosthesis. Stable few scattered sclerotic osseous foci at the p nasim. There are lumbar spine degenerative changes. IMPRESSION: 1. Findings consistent with emphysematous cystitis. 2. Likely clot within the urinary bladder. 3. Possible prostatitis. 4. Possible superficial soft tissue wound at the right inguinal region. 5. No other acute findings seen. Otherwise as described. ACT 112: Negative or not required by law. The above report was generated using voice recognition software. It may contain grammatical, syntax o r spelling errors. Electronically signed by: Casey Anderson M.D. 08/26/2024 11:01 AM
[2024-08-26] MEDS: MoRPHine SULFATE 4 MG/ML 1 ML CARP\\VIAL IV STA ×2 (11:32→15:52)
--- NOTE | 2024-08-26 12:09 | History & Physical Report ---
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 Hematuria, recurrent Indwelling Ware catheter History of prostatic varicosities Prostatitis, Possible Emphysematous Cystitis In setting of dual antiplatelet therapy for PAD --S/P Cystoscopy with Cystolitholapaxy, Clot evacuation, Fulguration of bleeding prostatic Varicosities, and fulguration of bladder neck by on 08/10/24 -- hemoglobin 11, baseline --CT ABD today: 1. Findings consistent with emphysematous cystitis. 2. Likely clot within the urinary bladder. 3. Possible prostatitis. 4. Possible superficial soft tissue wound at the right inguinal region. 5. No other acute findings seen. Otherwise as described. --Blood culture: Pending --Urine culture: Pending -- empiric Cefepime IV q8h repeat Hg 3pm hold ASA and Plavix continue continuous bladder irrigation Urology consult Right groin wound,Peripheral Artery Disease, right common femoral to PT bypass with non-reversed GSV on 06/28, s/p Debridements Right Foot Wound,Right foot osteomyelitis, s/p right TMA wound debridement 07/02, s/p 6 weeks IV Ertapenem Sacral 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 no signs of infection no patient's wounds consult wheat inspector consult Podiatry hold aspirin and Plavix in light of hematuria Continue Lipitor Pressure ulcer of sacral region, at least Stage 2, POA Turn and reposition q2hr Continue wound care DM II Insulin regimen Pharmacy Glycemic consult Hypertension Continue SMASHER 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 H/O CVA hold aspirin, Plavix continue statin Hyperlipidemia Continue atorvastatin and colesevelam Hypothyroidism Continue levothyroxine GERD Continue pantoprazole BPH Continue tamsulosin DVT prophylaxis Lovenox/heparin contraindicated in light of hematuria SCDs contraindicated in light of PAD Full code as per patient and caregiver Disposition Currently at the orthopedic specialty hospital at [facility] Caregiver inquiring if patient can go to the orthopedic specialty hospital [place] Consult case management plan of care discussed with patient and caregiver in detail and at length all questions answered they are understanding, agreeable, comfortable with the plan of care History of Present Illness Chief Complaint: Hematuria Primary Care Provider: Gabriele Dumas MD 74 year old wheelchair bound male with PMH significant for type 2 diabetes, hyperlipidemia, diabetic retinopathy, peripheral artery disease, atherosclerosis, 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 History obtained from patient and his caregiver Seng at the bedside. Patient was recently admitted to [facility] from August 08 to August 15, 2024 for hematuria, status post Cystoscopy with Cystolitholapaxy, Clot evacuation, Fulguration of bleeding prostatic Varicosities, and fulguration of bladder neck. Urine culture grew Jyoti and patient was treated with fluconazole. Patient also completed treatment of IV ertapenem for right foot infection.He was then discharged to the orthopedic specialty hospital for acute rehab. For the past 4 days, the patient has been having gross hematuria and staff at the orthopedic specialty hospital has been changing the Ware catheter multiple times as per caregiver. Today the hematuria progressed prompting the patient to be brought to the ER Upon arrival to the ER, patient's blood pressure 1136/97, heart rate 112, temperature 36.6, 100% on room air. UA suggestive Of UTI CT abdomen pelvis showing a possible emphysematous cystitis and prostatitis. Patient's Ware catheter was changed, continuous bladder irrigation initiated and patient was given ceftriaxone and ciprofloxacin. On exam, patient seen resting in bed, not in distress, having some discomfort over the penile urethra. He denies having abdominal pain, nausea vomiting, fevers or chills, chest pain, shortness of breath. 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--ALL VACCINES LAUNDRY DETERGENT AT Allergy Severe SEVERE Uncoded 08/26/24 11:16 ENCOMPASS ITCHING Home Medications Medication Instructions Recorded Confirmed Type amlodipine 5 mg tablet 5 mg PO QAM 03/23/24 08/26/24 History liraglutide 0.6 mg/0.1 mL (18 mg/3 1.8 mg subcut QAM 03/23/24 08/26/24 History mL) subcutaneous pen injector metformin 500 mg tablet,extended 1,500 mg PO QAM 03/23/24 08/26/24 History release 24 hr oxycodone 5 mg tablet 5 mg PO BID PRN Pain, Severe 03/23/24 08/26/24 History acetaminophen 325 mg tablet 650 mg PO Q6H PRN Pain 08/08/24 08/26/24 History (Tylenol) atorvastatin 40 mg tablet 40 mg PO QAM 08/08/24 08/26/24 History bisacodyl 10 mg rectal suppository 10 mg HI DAILY PRN Constipation 08/08/24 08/26/24 History clopidogrel 75 mg tablet (Plavix) 75 mg PO QAM 08/08/24 08/26/24 History colesevelam 625 mg tablet (WelChol) 625 mg PO BIDM 08/08/24 08/26/24 History docusate sodium 100 mg capsule 100 mg PO BID PRN Constipation 08/08/24 08/26/24 History empagliflozin 25 mg tablet 25 mg PO QAM 08/08/24 08/26/24 History (Jardiance) ferrous sulfate 325 mg (65 mg 325 mg PO TIDM 08/08/24 08/26/24 History iron) tablet gabapentin 100 mg capsule 100 mg PO BID 08/08/24 08/26/24 History gabapentin 300 mg capsule 600 mg PO HS 08/08/24 08/26/24 History levothyroxine 25 mcg tablet 25 mcg PO DAILYBB 08/08/24 08/26/24 History lidocaine HCl 2 % topical gel 1 applic topical DIRECTED PRN 08/08/24 08/26/24 History APPLY TO PENIS NEEDED melatonin 3 mg tablet 6 mg PO HS 08/08/24 08/26/24 History pantoprazole 40 mg tablet,delayed 40 mg PO DAILYBB 08/08/24 08/26/24 History release sennosides 8.6 mg tablet (senna) 8.6 mg PO BID 08/08/24 08/26/24 History sennosides 8.6 mg-docusate sodium 2 tab-cap PO QDL PRN Constipation 08/08/24 08/26/24 History 50 mg tablet (Senna Plus) tamsulosin 0.4 mg capsule (Flomax) 0.4 mg PO HS 08/08/24 08/26/24 History acetaminophen 500 mg tablet 500 mg PO Q4H PRN Fever 08/26/24 08/26/24 History glimepiride 1 mg tablet 2 mg PO BID 08/26/24 08/26/24 History glucagon HCl 1 mg solution for 1 mg IM DIRECTED PRN 08/26/24 08/26/24 History injection (Glucagon (HCl) Hypoglycemia Emergency Kit) hydrocortisone 2.5 % topical cream 1 applic HI BID 08/26/24 08/26/24 History with perineal applicator (Proctosol HC) insulin aspart U-100 100 unit/mL 1 sliding scale dose subcut 08/26/24 08/26/24 History (3 mL) subcutaneous pen USEASDIRECTD loperamide 2 mg capsule 2 mg PO Q6H PRN Diarrhea 08/26/24 08/26/24 History ondansetron 4 mg disintegrating 4 mg PO Q6H PRN Nausea And Vomiting 08/26/24 08/26/24 History tablet polyethylene glycol 3350 17 17 g PO QDL PRN Constipation 08/26/24 08/26/24 History gram/dose oral powder (Miralax) sodium phosphates 19 gram-7 118 ml HI DAILY PRN Constipation 08/26/24 08/26/24 History gram/118 mL enema (Fleet Enema) Past Med/Surg History Problem List Indwelling Ware catheter present Acute prostatitis Emphysematous cystitis Hematuria Peripheral vascular disease Foot osteomyelitis, right Open wound of right ankle History of amputation of lesser toe of left foot Status post transmetatarsal amputation of right foot Diabetic ulcer of right foot associated with diabetes mellitus due to underlying condition, with fat layer exposed Pressure injury of toe of left foot, unstageable Ulcer of left great toe due to diabetes mellitus Encounter for pre-operative examination Positive culture findings in wound Sacral wound Gross hematuria (Acute) PAD (peripheral artery disease) Medical History Hypothyroidism 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 diabetes mellitus ICAO (internal carotid artery occlusion) bilateral Essential hypertension Guillain-Cotati syndrome after administration of vaccine Dyslipidemia Embolic stroke involving right middle cerebral artery Osteomyelitis of ankle or foot, right, acute Presence of IVC filter Seizure-like activity Type 2 diabetes mellitus Carotid artery disease Kidney stone Surgical History S/P IVC filter History of thrombectomy S/P debridement multiple 07/25/24 right groin incision 07/02/24, 05/16/24 S/P femoral-tibial bypass S/P tonsillectomy S/P total hip arthroplasty S/P cataract surgery 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 Family History Other Cancer Diabetes Heart disease Social History Smoking Status: Never smoker Hx Alcohol Use: No Hx Substance Use: No Preferred Language: [place] Communication Ability: Effective Liaison Planner Required: No Beliefs That Will Affect Care: None Current Living Situation: Other Current Living Situation Comment: Lives w/ friend/POA/caregiver Seng Rasmussen Feels Safe at Home: Yes Assistive Devices: Hospital Bed, Walker and Wheelchair Review of Systems Review of Systems: all noted and negative except for above Physical Exam Physical Exam: General- oriented x 3, not in distress, speaks in sentences with no effort or accessory muscle use Head- atraumatic Eyes- PERRL, EOMI, anicteric ENT- oropharynx clear Neck- supple, no JVD, no adenopathy, no thyromegaly; carotids +2/2, no bruits appreciated Lungs- clear to auscultation bilaterally, no rales/wheezes Heart- normal rate, regular rhythm; no murmur, no gallop, no rub appreciated Abdomen- normal bowel sounds, nondistended, soft, nontender, no masses or hepatosplenomegaly Right groin wound: Open wound with packing in place, granulation tissue, no signs of surrounding erythema or tenderness positive Ware catheter in place, penile exam essentially normal Extremities- no pretibial edema, no calf tenderness; peripheral pulses intact right lower extremity: Incision wound from bypass graft intact, healing well, no signs of infection right foot: Surgical wound on the dorsal aspect open, minimal yellow discharge but no signs of infection overall Left foot: Eschar on the dorsal aspect of the left great toe Neuro- alert, oriented x 3; CN 2-12 grossly intact; motor 5/5 bilaterally;sensation 100% on all extremities; no other gross focal neurologic deficits Skin- warm & dry Results & Data Results & Data Vital Signs (Past 12 Hours) Vital Signs Temp Pulse Resp BP Pulse Ox O2 Del Method 08/26/24 09:38 108 H 08/26/24 09:28 36.6 C 112 H 22 136/97 100 Room Air all noted and reviewed including below Code Status & VTE Plan VTE Prophylaxis Plan VTE Prophylaxis will be ordered: Yes
[2024-08-26] MEDS: cefTRIAXone SODIUM 1,000 MG/50 ML BAG IV STA (12:18)
--- NOTE | 2024-08-26 12:57 | Urology Consultation ---
Date of Consultation August 26, 2024 Assessment & Plan (1) Gross hematuria: Patient is approx 3 weeks s/p Cystoscopy with Cystolitholapaxy, Clot evacuation, Fulguration of bleeding prostatic Varicosities, and fulguration of bladder neck, admitted today to the Hospitalist service with gross hematuria. Case reviewed with Dr Hughes. Ct scan shows air within the bladder likely from the indwelling catheter, enlarged prostate, and clot within the bladder. Labs reviewed. wbc 20.42, Cr 0.59, hgb 11.6 UA: >20 rbc, >50 wbc, 1+ bacteria, yeast present blood and urine cultures pending Recommend continuing with empiric antibiotics ordered pending culture results Continue with continuos bladder irrigation Will continue to follow History of Present Illness History of Present Illness Reji is a 74 year old patient admitted today with recurrent hematuria. He is approximately 3 weeks s/p cystoscopy with cystolitholapaxy, clot evacuation, fulguration of bleeding prostatic varicosities and fulguration of bladder neck, also had positive cultures for bradley glabrata. He was discharged to an extended care facility with a urinary catheter in place. He reports hematuria for the past 4 days. Denies pain or fever. His catheter has been changed to a 3 way catheter in the ER. 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--ALL VACCINES LAUNDRY DETERGENT AT Allergy Severe SEVERE Uncoded 08/26/24 11:16 E[facility]PASS ITCHING Home Medications Medication Instructions Recorded Confirmed Type amlodipine 5 mg tablet 5 mg PO QAM 03/23/24 08/26/24 History liraglutide 0.6 mg/0.1 mL (18 mg/3 1.8 mg subcut QAM 03/23/24 08/26/24 History mL) subcutaneous pen injector metformin 500 mg tablet,extended 1,500 mg PO QAM 03/23/24 08/26/24 History release 24 hr oxycodone 5 mg tablet 5 mg PO BID PRN Pain, Severe 03/23/24 08/26/24 History acetaminophen 325 mg tablet 650 mg PO Q6H PRN Pain 08/08/24 08/26/24 History (Tylenol) atorvastatin 40 mg tablet 40 mg PO QAM 08/08/24 08/26/24 History bisacodyl 10 mg rectal suppository 10 mg [place] DAILY PRN Constipation 08/08/24 08/26/24 History clopidogrel 75 mg tablet (Plavix) 75 mg PO QAM 08/08/24 08/26/24 History colesevelam 625 mg tablet (WelChol) 625 mg PO BIDM 08/08/24 08/26/24 History docusate sodium 100 mg capsule 100 mg PO BID PRN Constipation 08/08/24 08/26/24 History empagliflozin 25 mg tablet 25 mg PO QAM 08/08/24 08/26/24 History (Jardiance) ferrous sulfate 325 mg (65 mg 325 mg PO TIDM 08/08/24 08/26/24 History iron) tablet gabapentin 100 mg capsule 100 mg PO BID 08/08/24 08/26/24 History gabapentin 300 mg capsule 600 mg PO HS 08/08/24 08/26/24 History levothyroxine 25 mcg tablet 25 mcg PO DAILYBB 08/08/24 08/26/24 History lidocaine HCl 2 % topical gel 1 applic topical DIRECTED PRN 08/08/24 08/26/24 History APPLY TO PENIS NEEDED melatonin 3 mg tablet 6 mg PO HS 08/08/24 08/26/24 History pantoprazole 40 mg tablet,delayed 40 mg PO DAILYBB 08/08/24 08/26/24 History release sennosides 8.6 mg tablet (senna) 8.6 mg PO BID 08/08/24 08/26/24 History sennosides 8.6 mg-docusate sodium 2 tab-cap PO QDL PRN Constipation 08/08/24 08/26/24 History 50 mg tablet (Senna Plus) tamsulosin 0.4 mg capsule (Flomax) 0.4 mg PO HS 08/08/24 08/26/24 History acetaminophen 500 mg tablet 500 mg PO Q4H PRN Fever 08/26/24 08/26/24 History glimepiride 1 mg tablet 2 mg PO BID 08/26/24 08/26/24 History glucagon HCl 1 mg solution for 1 mg IM DIRECTED PRN 08/26/24 08/26/24 History injection (Glucagon (HCl) Hypoglycemia Emergency Kit) hydrocortisone 2.5 % topical cream 1 applic [place] BID 08/26/24 08/26/24 History with perineal applicator (Proctosol HC) insulin aspart U-100 100 unit/mL 1 sliding scale dose subcut 08/26/24 08/26/24 History (3 mL) subcutaneous pen USEASDIRECTD loperamide 2 mg capsule 2 mg PO Q6H PRN Diarrhea 08/26/24 08/26/24 History ondansetron 4 mg disintegrating 4 mg PO Q6H PRN Nausea And Vomiting 08/26/24 08/26/24 History tablet polyethylene glycol 3350 17 17 g PO QDL PRN Constipation 08/26/24 08/26/24 History gram/dose oral powder (Miralax) sodium phosphates 19 gram-7 118 ml [place] DAILY PRN Constipation 08/26/24 08/26/24 History gram/118 mL enema (Fleet Enema) Patient History Medical History Hypothyroidism 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 diabetes mellitus ICAO (internal carotid artery occlusion) bilateral Essential hypertension Guillain-[place] syndrome after administration of vaccine Dyslipidemia Embolic stroke involving right middle cerebral artery Osteomyelitis of ankle or foot, right, acute Presence of IVC filter Seizure-like activity Type 2 diabetes mellitus Carotid artery disease Kidney stone Surgical History S/P IVC filter History of thrombectomy S/P debridement multiple 07/25/24 right groin incision 07/02/24, 05/16/24 S/P femoral-tibial bypass S/P tonsillectomy S/P total hip arthroplasty S/P cataract surgery 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 Family History Other Cancer Diabetes Heart disease Social History Smoking Status: Never smoker Hx Alcohol Use: No Hx Substance Use: No Preferred Language: Upper Sorbian Communication Ability: Effective Vp Integrity Required: No Beliefs That Will Affect Care: None Current Living Situation: Other Current Living Situation Comment: Lives w/ friend/POA/caregiver Seng Rasmussen Feels Safe at Home: Yes Assistive Devices: Hospital Bed, Walker and Wheelchair Physical Exam Constitutional: no acute distress Eyes: no conjunctival abnormality Neck: normal visual inspection Respiratory: normal respiratory effort; no respiratory distress and no labored breathing Gastrointestinal (Abdomen): Inspection/Auscultation: abdomen normal to inspection Percussion/Palpation: abdomen nontender Genitourinary: no CVA tenderness catheter draining pink urine with some clot present Results & Data Vital Signs (Past 12 Hours) Vital Signs Temp Pulse Pulse Resp BP BP Pulse Ox 08/26/24 12:00 111 H 16 132/76 97 08/26/24 11:30 105 H 20 98 08/26/24 09:38 108 H 08/26/24 09:28 36.6 C 112 H 22 136/97 100 O2 Del Method 08/26/24 12:00 Room Air 08/26/24 11:30 Room Air 08/26/24 09:38 08/26/24 09:28 Room Air PG Care Time/CCT Total # of Minutes Spent Total Time Spent with Patient: Total time spent is greater than 50% in coordination of care (as documented) at patient's floor/unit and/or counseling patient: Coding Level of Care Code 88742 INT INP/OBS CARE 2/55MIN Diagnoses Gross hematuria R31.0
--- NOTE | 2024-08-26 13:09 | Electrocardiogram Report ---
Test Reason : Blood Pressure : */* mmHG Vent. Rate : 108 BPM Atrial Rate : 108 BPM P-R Int : 156 ms QRS Dur : 64 ms QT Int : 334 ms P-R-T Axes : 11 11 72 degrees QTcB Int : 447 ms Sinus tachycardia Otherwise normal ECG When compared with ECG of 23-Mar-2024 12:22, Premature atrial complexes are no longer Present Vent. rate has increased by 42 bpm Nonspecific T wave abnormality no longer evident in Inferior leads Nonspecific T wave abnormality, improved in Lateral leads Confirmed by Jackson Bishop [id number]) on 08/26/2024 1:09:16 PM Referred By: Confirmed By: Jackson Bishop
[2024-08-26] MEDS: CIPROFLOXACIN / D5W 400 MG/200 ML BAG IV STA (13:28)
[2024-08-26] MEDS ORDERED: CARBOHYDRATES FOR HYPOGLYCEMIA PO PRN (14:19)
[2024-08-26] MEDS ORDERED: GLUCOSE 40% GEL 15 GM TUBE PO PRN (14:19)
[2024-08-26] MEDS ORDERED: GLUCOSE 10 TAB/TUBE PO PRN (14:19)
[2024-08-26] MEDS ORDERED: DEXTROSE 50% 50 ML SYRINGE IV PRN (14:19)
[2024-08-26] MEDS ORDERED: PHARMACY GLYCEMIC MGMT CONSULT PRN (14:19)
[2024-08-26] MEDS ORDERED: GLUCAGON FOR INJ 1 MG VIAL SQ PRN (14:19)
--- NOTE | 2024-08-26 14:41 | Pharmacy Report ---
Pharmacy Glycemic Short Note 2 - Date of Service August 26, 2024 - Glycemic Short BSG Results (Last 24 hours): 08/26/24 09:30 Glucose 296 H OUTPATIENT ANTIDIABETIC REGIMEN: * insulin aspart sliding scale * Jardiance 25mg po daily * glimepiride 2mg po bid * metformin ER 1000mg po daily HbA1c: 5.6% on 08/10/24 ASSESSMENT: * Reji is a 74 year old male who was admitted today for gross hematuria. Pharmacy was consulted for glycemic management while he is admitted. * BSG from blood draw this morning was 296mg/dL. (no further readings since then) Patient is not yet ordered a diet. A weight based bolus insulin re gimen with a stress of 2 was ordered to start now and a Lantus scale was added for HS (0,5, or 10 units depending on BSG). PLAN FOR INPATIENT GLYCEMIC CONTROL: * Hold outpatient diabetes medications * Basal insulin * Lantus scale at HS (0,5, or 10 units depending on BSG) * Bolus insulin * NovoLog per scale ACHS or Q6hrs while NPO * Goal Range: Low 120 mg/dL - High 160 mg/dL * Correction Factor: 30 mg/dL/unit * Nutritional / Prandial insulin per carb ratio of 1 unit per 10 grams CHO consumed
[2024-08-26 15:16] LABS: Hematocrit (blood only) 35.2 % (42.0-52.0); Hemoglobin 11.3 g/dl (14.0-18.0)
[2024-08-26] MEDS ORDERED: GLUCAGON HCL 1 MG IM PRN (15:23)
[2024-08-26] MEDS ORDERED: DOCUSATE SODIUM 100 MG CAP PO PRN (15:23)
[2024-08-26] MEDS ORDERED: INSULIN ASPART PER UNIT CHARGE SC SCH (16:30)
--- NOTE | 2024-08-26 16:31 | Podiatry Consultation ---
Date of Consultation August 26, 2024 Assessment & Plan (1) Open wound of right ankle: Encounter type: initial encounter Qualified Code(s): S91.001A - Unspecified open wound, right ankle, initial encounter (2) Peripheral vascular disease: (3) Ulcer of left great toe due to diabetes mellitus: (4) Pressure injury of toe of left foot, unstageable: (5) Diabetic ulcer of right foot associated with diabetes mellitus due to underlying condition, with fat layer exposed: Diabetic foot ulcer location: midfoot Qualified Code(s): E08.621 - Diabetes mellitus due to underlying condition with foot ulcer; L97.412 - Non- pressure chronic ulcer of right heel and midfoot with fat layer exposed (6) Status post transmetatarsal amputation of right foot: (7) History of amputation of lesser toe of left foot: Plan Bilateral foot wounds: S/P TMA right foot, dry gangrene distal medial left hallux. Right foot: s/p right TMA wound debridement 07/02, s/p 6 weeks IV Ertapenem. CTA 08/12/2024 reviewed with concern for possible osteomyelitis of metatarsal remnants of the right foot. No signs of local soft tissue infection or exposed bone within the right foot wound at this time. Wound is shown significant progress with decreased depth and dimensions since last evaluated on 08/15/2024. Patient has history of transmetatarsal amputation on the right foot with residual osteomyelitis, which is treated with debridement and antibiotics which he completed on 08/16/2024. No signs of local soft tissue infection to the right foot. Wound dehiscence at medial ankle from recent bypass surgery to the right lower extremity with no signs of local soft tissue infection. - Dressing change once daily to forefoot and medial ankle wound cleansing with normal sterile saline and dressing with Aquacel Ag and a dry sterile dressing including ABD to the anterior ankle held in place with Kerlix and tape. Left foot: stable eschar in place to the distal aspect of left Hallux with no signs of local soft tissue infection. - Camino eschar with Betadine once daily and leave exposed to air. Avoid pressure to the distal left hallux including pressure from blankets and footboard. Continue bilateral heel offloading boots at all times while in bed. Elevate heels off bed with pillow behind the leg. Order placed for offloading boots and postop shoes. Postop shoe was to be worn for ambulation short distance and transfer. Continues empiric Cefepime IV q8h No plan for podiatric surgical intervention during this admission. Thank you for consulting podiatry to hear this patient. Will continue to follow and recommend continued follow up in the wound care center for discharge. History of Present Illness Reason for Consultation: Bilateral foot wound Attending Physician: Wes Dempsey MD History of Present Illness Patient returns to on [facility] emergency department 08/26/2024 with hematuria. Podiatry consulted to evaluate bilateral foot wounds. Patient reports blister to left great toe starting in May 2024 which was deroofed and subsequently developed eschar which has been treated regularly with Betadine since that time. Status post right lower extremity bypass 06/28/2024 was performed in hopes to improve healing at a failed transmetatarsal amputation site of the right foot. Underwent subsequent debridement of the transmetatarsal amputation site and patient's POA reports significant improvement in the overall healing of the transmetatarsal amputation site since the time of bypass. He has been changing dressing with Dakin's wet-to-dry gauze once daily. Wound bed is now healthy granular tissue and he has no signs of local soft tissue infection to the right foot. He does have dehiscence of the bypass site distally along the medial ankle which is also being treated with a Dakin's wet-to-dry dressing and is dressed on current admission with Allevyn border dressing which is dated 08/26/2024. Patient was discharged from [facility] to rehab facility with PICC line in place receiving IV Invanz with planned end date of 08/16/2024. He was di scharged from [facility] 08/07/[address] [facility] 08/08/2024 with hematuria and Ware catheter and partially removed PICC line. PICC line was subsequently removed and the emergency department and PIV placed for continuation of ertapenem until end date 08/16/2024. Recent completion of prescriptions for fluconazole and linezolid. Completed p.o. doxycycline on 08/16/2024. History of left 2nd and 3rd digit amputation and left partial 4th and 5th ray amputation. History of transmetatarsal amputation right foot. 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 Patient was recently admitted and readmitted to [facility] for vascular surgery with rehab stays as detailed below. Timeline of previous hospitalizations: -Admitted 06/28-07/05/24 to [facility] for right common femoral to PT bypass with non- reversed GSV on 06/28, required pressors post-op so sent to ICU. That evening, de veloped stroke-like symptoms, scans showed old infarcts. Per neurology, high suspicion for stroke recrudescence symptoms improved. On 07/02, underwent right TMA wound debridement, cultures grew staph and enterococcus. Seen by ID who recommended ertapenem for 6 wks so PICC line placed. Discharged to [facility] for rehab on 07/05. -Seen by urology inpatient 07/04/24 evaluation of urinary retention s/p initial vascular procedure. Subsequently seen 07/25/24 for ongoing issues with Ware including leakage of urine around the catheter and intermittent gross hematuria. Urology placed 22 Fr hematuria catheter and irrigated with 1L of NS w/ return of 50 cc old clot. Was to f/u outpatient for cystoscopy and CT urogram. -Readmitted 07/25-07/27/24 for superficial dehiscence of right femoral incision af ter bypass, left toe gangrene for which pt underwent right groin debridement and nonselective LLE angiogram. Discharged to [facility] on 07/27 for continued rehab. Due to finish ertapenem 08/16/24. -Discharged from [facility] on 08/07/24. Saw vascular surgery for f/u yesterday who recommended continue DAPT for vasculopathy, Lipitor 40 mg for dyslipidemia. For wound care, wash right foot daily but no soaking or submersion; Dankins soaked guaze packing amp site and open groin site, cover with DSD and light Kerlix wrap of right foot. Needs heel protector for right foot; paint left great toe with betadine. 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--ALL VACCINES LAUNDRY DETERGENT AT Allergy Severe SEVERE Uncoded 08/26/24 11:16 [facility] ITCHING Home Medications Medication Instructions Recorded Confirmed Type amlodipine 5 mg tablet 5 mg PO QAM 03/23/24 08/26/24 History liraglutide 0.6 mg/0.1 mL (18 mg/3 1.8 mg subcut QAM 03/23/24 08/26/24 History mL) subcutaneous pen injector metformin 500 mg tablet,extended 1,500 mg PO QAM 03/23/24 08/26/24 History release 24 hr oxycodone 5 mg tablet 5 mg PO BID PRN Pain, Severe 03/23/24 08/26/24 History acetaminophen 325 mg tablet 650 mg PO Q6H PRN Pain 08/08/24 08/26/24 History (Tylenol) atorvastatin 40 mg tablet 40 mg PO QAM 08/08/24 08/26/24 History bisacodyl 10 mg rectal suppository 10 mg MS DAILY PRN Constipation 08/08/24 08/26/24 History clopidogrel 75 mg tablet (Plavix) 75 mg PO QAM 08/08/24 08/26/24 History colesevelam 625 mg tablet (WelChol) 625 mg PO BIDM 08/08/24 08/26/24 History docusate sodium 100 mg capsule 100 mg PO BID PRN Constipation 08/08/24 08/26/24 History empagliflozin 25 mg tablet 25 mg PO QAM 08/08/24 08/26/24 History (Jardiance) ferrous sulfate 325 mg (65 mg 325 mg PO TIDM 08/08/24 08/26/24 History iron) tablet gabapentin 100 mg capsule 100 mg PO BID 08/08/24 08/26/24 History gabapentin 300 mg capsule 600 mg PO HS 08/08/24 08/26/24 History levothyroxine 25 mcg tablet 25 mcg PO DAILYBB 08/08/24 08/26/24 History lidocaine HCl 2 % topical gel 1 applic topical DIRECTED PRN 08/08/24 08/26/24 History APPLY TO PENIS NEEDED melatonin 3 mg tablet 6 mg PO HS 08/08/24 08/26/24 History pantoprazole 40 mg tablet,delayed 40 mg PO DAILYBB 08/08/24 08/26/24 History release sennosides 8.6 mg tablet (senna) 8.6 mg PO BID 08/08/24 08/26/24 History sennosides 8.6 mg-docusate sodium 2 tab-cap PO QDL PRN Constipation 08/08/24 08/26/24 History 50 mg tablet (Senna Plus) tamsulosin 0.4 mg capsule (Flomax) 0.4 mg PO HS 08/08/24 08/26/24 History acetaminophen 500 mg tablet 500 mg PO Q4H PRN Fever 08/26/24 08/26/24 History glimepiride 1 mg tablet 2 mg PO BID 08/26/24 08/26/24 History glucagon HCl 1 mg solution for 1 mg IM DIRECTED PRN 08/26/24 08/26/24 History injection (Glucagon (HCl) Hypoglycemia Emergency Kit) hydrocortisone 2.5 % topical cream 1 applic MS BID 08/26/24 08/26/24 History with perineal applicator (Proctosol HC) insulin aspart U-100 100 unit/mL 1 sliding scale dose subcut 08/26/24 08/26/24 History (3 mL) subcutaneous pen USEASDIRECTD loperamide 2 mg capsule 2 mg PO Q6H PRN Diarrhea 08/26/24 08/26/24 History ondansetron 4 mg disintegrating 4 mg PO Q6H PRN Nausea And Vomiting 08/26/24 08/26/24 History tablet polyethylene glycol 3350 17 17 g PO QDL PRN Constipation 08/26/24 08/26/24 History gram/dose oral powder (Miralax) sodium phosphates 19 gram-7 118 ml MS DAILY PRN Constipation 08/26/24 08/26/24 History gram/118 mL enema (Fleet Enema) Patient History Medical History Hypothyroidism 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 diabetes mellitus ICAO (internal carotid artery occlusion) bilateral Essential hypertension Guillain-Rebuck syndrome after administration of vaccine Dyslipidemia Embolic stroke involving right middle cerebral artery Osteomyelitis of ankle or foot, right, acute Presence of IVC filter Seizure-like activity Type 2 diabetes mellitus Carotid artery disease Kidney stone Surgical History S/P IVC filter History of thrombectomy S/P debridement multiple 07/25/24 right groin incision 07/02/24, 05/16/24 S/P femoral-tibial bypass S/P tonsillectomy S/P total hip arthroplasty S/P cataract surgery 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 Family History Other Cancer Diabetes Heart disease Social History Smoking Status: Never smoker Hx Alcohol Use: No Hx Substance Use: No Preferred Language: Sami Communication Ability: Effective Destaticizer Feeder Required: No Beliefs That Will Affect Care: None Current Living Situation: Rehab Current Living Situation Comment: patient currently at [facility] for rehab, normally lives with friend Seng Other Information That Helps Us Care for You: No Feels Safe at Home: Yes Safety Concerns: Feels Safe At This Time Assistive Devices: Hospital Bed, Walker and Wheelchair Review of Systems Review of Systems: Reports hematuria. Patient denies nausea, vomiting, fever, chills, shortness of breath, chest pain. Denies pain in the bilateral foot. Physical Exam Physical Exam: Const: No signs of acute distress present. Denies nausea, vomiting, fever or chills. CV: Extremities: Capillary refill time is 3 seconds all digits of the left foot with exception of dry eschar to the hallux and to the amputation site of the right foot. Pedal pulses are nonpalpable bilateral. Recent right lower extremity bypass surgery with open/dehisced wound to the medial ankle. Lymph: No palpable or visible regional lymphadenopathy. Skin: Skin is thin and atrophic in the bilateral lower extremity below the knee with loss of hair growth. See wound exam Neuro: Loss of protective sensation of bilateral foot Psych: Mood/Affect: Mood is normal. Affect is normal. Cognition: Orientation is intact to person, place and time. Focused lower extremity musculoskeletal exam: Leg: No pain with compression of the calf muscle. Right foot: Status post transmetatarsal amputation which is well-healed laterally and open with granular wound medially. Wound to the medial aspect of the transmetatarsal amputation site extends to subcutaneous tissue with healthy granular wound bed. There is no frankly exposed bone or tendon in the wound and there is no undermining tracking or active drainage. Patient developed infection at the transmetatarsal amputation site which required revision, debridement and has improved to healing following bypass surgery to the right lower extremity 06/28/2024. There is dehiscence along the medial right ankle and rear foot which extends to subcutaneous tissue without any notable exposure of underlying vascular structures. Slough to the wound bed is easily removed with 4 x 4 gauze exposing mixed granular and subcutaneous tissue. 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 Patient has a stable eschar to the distal medial aspect of the right great toe. Edges of the eschar starting to lift with underlying healthy epithelium. There is no signs of local soft tissue infection and eschar is well adhered to the underlying tissue. Optimistic that with time. Continued application of Betadine once daily and may lysing pressure to the area of this wound can heal without surgical intervention. Results & Data Vital Signs (Past 12 Hours) Vital Signs Temp Pulse Pulse Resp BP BP Pulse Ox 08/26/24 15:30 133 H 26 H 142/93 H 97 08/26/24 15:00 130 H 22 163/115 H 99 08/26/24 14:00 109 H 16 98 08/26/24 13:39 119 H 08/26/24 12:00 111 H 16 132/76 97 08/26/24 11:30 105 H 20 98 08/26/24 09:38 108 H 08/26/24 09:28 36.6 C 112 H 22 136/97 100 O2 Del Method 08/26/24 15:30 Room Air 08/26/24 15:00 Room Air 08/26/24 14:00 Room Air 08/26/24 13:39 08/26/24 12:00 Room Air 08/26/24 11:30 Room Air 08/26/24 09:38 08/26/24 09:28 Room Air PG Care Time/CCT Total # of Minutes Spent Total Time Spent with Patient: Total time spent is greater than 50% in coordination of care (as documented) at patient's floor/unit and/or counseling patient: Coding Level of Care Code 90112 INT INP/OBS CARE 55MIN Diagnoses Open wound of right ankle, initial encounter S91.001A Encounter type: initial encounter Peripheral vascular disease I73.9 Ulcer of left great toe due to diabetes mellitus E11.621; L97.529 Pressure injury of toe of left foot, unstageable L89.890 Diabetic ulcer of right midfoot associated with diabetes mellitus due to underlying condition, with fat layer exposed E08.621; L97.412 Diabetic foot ulcer location: midfoot Status post transmetatarsal amputation of right foot Z89.431 History of amputation of lesser toe of left foot Z89.422
[2024-08-26] MEDS ORDERED: Nursing to Pharmacy Communication SCH (18:15)
[2024-08-26] MEDS: INSULIN ASPART PER UNIT CHARGE SC SCH (18:22)
[2024-08-26] MEDS: ADVANCED PROBIOTIC 625 MG CAPSULE PO SCH (18:23)
[2024-08-26] MEDS: LIDOCAINE 2% JELLY 5 ML TUBE EXT SCH (18:23)
[2024-08-26] MEDS: ACETAMINOPHEN 500 MG TAB PO SCH (18:23)
[2024-08-26] MEDS: FERROUS SULFATE 325 MG TAB PO SCH (18:24)
[2024-08-26] MEDS: CEFEPIME 2000MG 2,000 MG/20 ML SYR IV SCH (18:26)
[2024-08-26] MEDS: LANTUS PER UNIT CHARGE SC SCH (20:54)
[2024-08-26] MEDS ORDERED: LIDOCAINE 2% JELLY 5 ML TUBE EXT SCH (21:00)
[2024-08-26] MEDS ORDERED: GABAPENTIN 100 MG CAP PO SCH (21:00)
[2024-08-26] MEDS: GABAPENTIN 300 MG CAP PO SCH (21:01)
[2024-08-26] MEDS: MELATONIN 3 MG TAB PO SCH (21:02)
[2024-08-26] MEDS: HYDROCORTISONE HC 2.5% CRM 30GM TUBE EXT SCH (21:02)
[2024-08-26] MEDS: SENNA 8.6 MG TAB PO SCH (21:02)
[2024-08-26] MEDS: TAMSULOSIN HCL 0.4 MG CAP PO SCH (21:03)
[2024-08-27] MEDS: MoRPHine SULFATE 4 MG/ML 1 ML CARP\\VIAL IV PRN (00:14)
[2024-08-27] MEDS: PROMETHAZINE 6.25 MG/50.25 ML BAG IV STA (02:57)
[2024-08-27] MEDS: LEVOTHYROXINE SODIUM 25 MCG TABLET PO SCH (06:05)
[2024-08-27 06:53] LABS: Hematocrit (blood only) 31.6 % (42.0-52.0); Hemoglobin 10.0 g/dl (14.0-18.0); Immature Granulocytes # (auto) 0.11 K/uL (0.01-0.20); Immature Granulocytes % (auto) 0.7 %; Mean Corpuscular Hemoglobin 27.0 pg (25.0-34.0); Mean Corpuscular Volume 85.4 fL (80.0-100.0); Platelet Count 431 K/uL (130-400); RDW Standard Deviation 47.3 fL (36.4-46.3); Red Blood Count 3.70 M/uL (4.70-6.10); White Blood Count 15.00 K/ul (4.8-10.8)
[2024-08-27 07:25] LABS: Alanine Aminotransferase 7.0 U/L (7-52); Albumin Globulin Ratio 1.2 (0.9-2); Alkaline Phosphatase 76.0 U/L (34-104); Anion Gap 10.0 (3-11); Bilirubin,Total 0.5 mg/dl (0.2-1.0); Blood Urea Nitrogen 26.0 mg/dl (6-23); Calcium 8.6 mg/dl (8.6-10.3); Carbon Dioxide 23.0 mmol/L (21-32); Chloride 104.0 mmol/L (98-107); Creatinine Clr Calc Pharmacy 87.2 ml/min; Globulin 2.8 gm/dl (2.5-4.0); Glucose 138.0 mg/dl (70-99(Fasting)); Potassium 4.2 mmol/L (3.5-5.1); Sodium 137.0 mmol/L (136-145); Total Protein 6.2 gm/dl (6.0-8.3)
--- NOTE | 2024-08-27 08:01 | Urology Progress Note ---
Date of Service August 27, 2024 Assessment & Plan (1) Gross hematuria: Plan: Patient lethargic this morning, but am able to awake him. Denies pain at this time. Urine is clear now with CBI wbc 15, hgb 10, Cr 0.78. blood and urine cultures pending. Continue cefepime will continue to follow (2) Indwelling Ware catheter present: (3) Acute prostatitis: Admission and Anticipated Discharge Date Admission Date: August 26, 2024 Subjective 74 year old patient approximately 3 weeks s/p Cystoscopy with Cystolitholapaxy, Clot evacuation, Fulguration of bleeding prostatic Varicosities, and fulguration of bladder neck admitted yesterday with gross hematuria, UTI. CBI continued overnight and urine has improved, no clots or blood at this time. Patient denies pain. He is lethargic. Physical Exam Constitutional: + lethargic; no acute distress Neck: normal visual inspection Respiratory: normal respiratory effort; no respiratory distress and no labored breathing Gastrointestinal (Abdomen): Percussion/Palpation: abdomen nontender Psychiatric: Cognition: language grossly intact Genitourinary: catheter in place. some blood present around the meatus. Urine is clear yellow at this time Results & Data Vital Signs (Past 12 Hours) Vital Signs Temp Pulse Pulse Resp BP BP Pulse Ox 08/27/24 07:48 36.3 C L 88 18 125/77 98 08/27/24 03:30 36.6 C 84 16 106/71 97 08/26/24 22:24 36.7 C 95 H 18 104/70 97 08/26/24 21:48 95 H 08/26/24 20:00 O2 Del Method 08/27/24 07:48 Room Air 08/27/24 03:30 Room Air 08/26/24 22:24 Room Air 08/26/24 21:48 08/26/24 20:00 Room Air PG Care Time/CCT Total # of Minutes Spent Total Time Spent with Patient: Total time spent is greater than 50% in coordination of care (as documented) at patient's floor/unit and/or counseling patient: Coding Level of Care Code 93924 SUB INP/OBS CARE 03/09MIN Diagnoses Gross hematuria R31.0 Indwelling Ware catheter present Z97.8 Acute prostatitis N41.0
[2024-08-27] MEDS: ATORVASTATIN 40 MG TAB PO SCH (08:51)
[2024-08-27] MEDS: GABAPENTIN 100 MG CAP PO SCH (08:52)
[2024-08-27] MEDS: PROMETHAZINE 6.25 MG/50.25 ML BAG IV PRN (11:46)
--- NOTE | 2024-08-27 12:42 | Hospitalist Progress Note ---
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 Hematuria, recurrent Indwelling Ware catheter History of prostatic varicosities Acute Prostatitis, Possible Emphysematous Cystitis In setting of dual antiplatelet therapy for PAD --S/P Cystoscopy with Cystolitholapaxy, Clot evacuation, Fulguration of bleeding prostatic Varicosities, and fulguration of bladder neck by on 08/10/24 --CT ABD Findings consistent with emphysematous cystitis. Likely clot within the urinary bladder. Possible prostatitis. Possible superficial soft tissue wound at the right inguinal region. No other acute findings seen. Otherwise as described. --Blood culture: Pending --Urine culture: Pending -- Continue empiric IV cefepime --Hold aspirin, Plavix secondary to hematuria -- Monitor H&H and transfuse as needed -- Continue continuous bladder irrigation -- Appreciate urology input Right groin wound,Peripheral Artery Disease, right common femoral to PT bypass with non-reversed GSV on 06/28, s/p Debridements Right Foot Wound,Right foot osteomyelitis, s/p right TMA wound debridement 07/02, s/p 6 weeks IV Ertapenem Sacral 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 consult cloud engineer Appreciate podiatry input hold aspirin and Plavix in light of hematuria Continue Lipitor Pressure ulcer of sacral region, at least Stage 2, POA Turn and reposition q2hr Continue wound care Constipation Continue bowel regimen Will check KUB tomorrow DM II Insulin regimen per protocol Pharmacy Glycemic consult Monitor blood glucose levels Hypertension Continue [employer] 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 Monitor blood pressure H/O CVA hold aspirin, Plavix due to hematuria continue statin Hyperlipidemia Continue atorvastatin and colesevelam Hypothyroidism Continue levothyroxine GERD Continue pantoprazole BPH Continue tamsulosin DVT prophylaxis Lovenox/heparin contraindicated in light of hematuria SCDs contraindicated in light of PAD Code Status Full code Disposition PT OT prior to discharge Admission and Anticipated Discharge Date Admission Date: August 26, 2024 Subjective Patient is seen and examined at bedside Hematuria seem to be resolved On continuous bladder irrigation currently States feeling constipated associated with nausea Denies any chest pain, dyspnea, abdominal pain Review of Systems Review of Systems: All systems reviewed & are unremarkable except as noted in Subjective Physical Exam Physical Exam: Physical Exam: Vitals signs as noted above General Appearance:Moderately built and nourished, no apparent distress, chronic ill appearing Head: normocephalic, Atraumatic Eyes: normal inspection, EOMI Neck: supple, Trachea midline Respiratory/Chest: Normal breath sounds, CTA, No accessory muscle use Cardiovascular: S1, S2, No murmur Abdomen/GI:Soft, Non tender, Bowel sounds present Extremities/Musculoskeletal:normal inspection, no edema Neurologic/Psych:AAOX3, + Facial droop, minimal left sided weakness Skin: +R groin surgical wound, small sacral wound, R foot partial amputation, wound, Left great toe dry gangrenous, missing digits Results & Data Results & Data Vital Signs (Past 12 Hours) Vital Signs Temp Pulse Pulse Resp BP BP Pulse Ox 08/27/24 11:44 35.2 C L 86 17 106/69 96 08/27/24 10:10 83 08/27/24 07:48 36.3 C L 88 18 125/77 98 08/27/24 03:30 36.6 C 84 16 106/71 97 O2 Del Method 08/27/24 11:44 Room Air 08/27/24 10:10 08/27/24 07:48 Room Air 08/27/24 03:30 Room Air Laboratory Results Short CBC 08/26/24 08/27/24 Range/Units 14:49 06:27 WBC 15.00 H (4.8-10.8) K/ul Hgb 11.3 L 10.0 L (14.0-18.0) g/dl Hct 35.2 L 31.6 L (42.0-52.0) % Plt Count 431 H (130-400) K/uL BMP 08/27/24 06:27 Sodium 137 Potassium 4.2 Chloride 104 Carbon Dioxide 23 BUN 26 H Creatinine 0.78 Glucose 138 H Calcium 8.6 Liver Function 08/27/24 Range/Units 06:27 Total Bilirubin 0.5 (0.2-1.0) mg/dl AST 8 L (13-39) U/L ALT 7 (7-52) U/L Alkaline Phosphatase 76 (34-104) U/L Albumin 3.4 (3.4-5.0) gm/dl
[2024-08-27] MEDS: POLYETHYLENE (MIRALAX) 17 GM PACK PO ONE (13:21)
[2024-08-27] MEDS: COLLAGENASE OINT 30 GM TUBE EXT SCH (17:16)
[2024-08-27 21:00] LABS: Hematocrit (blood only) 28.7 % (42.0-52.0); Hemoglobin 9.4 g/dl (14.0-18.0)
[2024-08-27] MEDS: DOCUSATE SODIUM 100 MG CAP PO SCH (21:33)
--- NOTE | 2024-08-28 07:52 | Urology Progress Note ---
Date of Service August 28, 2024 Assessment & Plan (1) Gross hematuria: Plan: afebrile, labs pending blood cultures no growth so far, urine culture=pinpoint growth, reincubating currently on cefepime, h/o bradley glabrata hematuria improved with CBI. CBI was stopped (2) Acute prostatitis: (3) Emphysematous cystitis: Admission and Anticipated Discharge Date Admission Date: August 26, 2024 Subjective 74 year old patient approximately 3 weeks s/p Cystoscopy with Cystolitholapaxy, Clot evacuation, Fulguration of bleeding prostatic Varicosities, and fulguration of bladder neck admitted with gross hematuria, UTI. Did have CBI for hematuria but that has been stopped. Urine appearance has improved. No pain at this time. Reports some buttock pain at times, has a h/o sacral ulcer. Physical Exam Constitutional: + ill appearing; no acute distress Respiratory: normal respiratory effort; no respiratory distress and no labored breathing Gastrointestinal (Abdomen): Inspection/Auscultation: abdomen normal to inspection Percussion/Palpation: abdomen soft; abdomen nontender Genitourinary: Catheter in place. Clear yellow urine Results & Data Vital Signs (Past 12 Hours) Vital Signs Temp Pulse Pulse Resp BP Pulse Ox O2 Del Method 08/28/24 02:38 36.7 C 82 16 126/79 97 Room Air 08/27/24 23:17 36.5 C 78 16 107/65 96 Room Air 08/27/24 21:42 87 08/27/24 20:00 Room Air PG Care Time/CCT Total # of Minutes Spent Total Time Spent with Patient: Total time spent is greater than 50% in coordination of care (as documented) at patient's floor/unit and/or counseling patient: Coding Level of Care Code 85839 SUB INP/OBS CARE 03/09MIN Diagnoses Gross hematuria R31.0 Acute prostatitis N41.0 Emphysematous cystitis N30.80
[2024-08-28 08:25] LABS: Anion Gap 10.0 (3-11); Blood Urea Nitrogen 25.0 mg/dl (6-23); Calcium 8.7 mg/dl (8.6-10.3); Carbon Dioxide 22.0 mmol/L (21-32); Chloride 104.0 mmol/L (98-107); Creatinine Clr Calc Pharmacy 117.2 ml/min; Glucose 135.0 mg/dl (70-99(Fasting)); Magnesium 1.7 mg/dl (1.7-2.4); Potassium 3.9 mmol/L (3.5-5.1); Sodium 136.0 mmol/L (136-145)
[2024-08-28 08:36] LABS: Hematocrit (blood only) 28.9 % (42.0-52.0); Hemoglobin 9.1 g/dl (14.0-18.0); Mean Corpuscular Hemoglobin 27.2 pg (25.0-34.0); Mean Corpuscular Volume 86.3 fL (80.0-100.0); Platelet Count 389 K/uL (130-400); RDW Standard Deviation 49.1 fL (36.4-46.3); Red Blood Count 3.35 M/uL (4.70-6.10); White Blood Count 13.85 K/ul (4.8-10.8)
--- NOTE | 2024-08-28 08:53 | XRay Report ---
KUB HISTORY: constipation COMPARISON STUDY: CT of the abdomen and pelvis dated 08/26/2024 FINDINGS: There is a prominent stool burden throughout a nondistended colon. There is no evidence of obstruction or impaction. There is a larger gallstone in right upper quadrant. Properitoneal fat line s are maintained. There is hardware in the right hip. There are degenerative changes in lumbar spine. There are 2 sclerotic lesions in the right ilium previously noted. IMPRESSION: Prominent stool burden without obstruction. ACT 112: Negative or not required by law. The above report was generated using voice recognition software. It may contain grammatical, syntax o r spelling errors. Electronically signed by: Clemencia Dennison M.D. 08/28/2024 8:51 AM
--- NOTE | 2024-08-28 14:19 | Hospitalist Progress Note ---
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 Hematuria, recurrent Indwelling Ware catheter History of prostatic varicosities Acute Prostatitis, Possible Emphysematous Cystitis In setting of dual antiplatelet therapy for PAD --S/P Cystoscopy with Cystolitholapaxy, Clot evacuation, Fulguration of bleeding prostatic Varicosities, and fulguration of bladder neck by on 08/10/24 --CT ABD Findings consistent with emphysematous cystitis. Likely clot within the urinary bladder. Possible prostatitis. Possible superficial soft tissue wound at the right inguinal region. No other acute findings seen. Otherwise as described. --Blood culture: Negative --Urine culture: Is growing Jyoti glabrata, awaiting sensitivity -- Continue empiric IV cefepime --Hold aspirin, Plavix secondary to hematuria --Hemoglobin remains stable at 9.1 --Bladder irrigation has been discontinued -- Appreciate urology -Clinically much better with clearance of hematuria and will ask urologist when aspirin and Plavix can be restarted Constipation with pain due to hemorrhoids Continue bowel regimen Will check KUB tomorrow Will give Anusol HC suppository twice daily on top of cream Right groin wound,Peripheral Artery Disease, right common femoral to PT bypass with non-reversed GSV on 06/28, s/p Debridements Right Foot Wound,Right foot osteomyelitis, s/p right TMA wound debridement 07/02, s/p 6 weeks IV Ertapenem Sacral 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 consult healthcare risk control consultant Appreciate podiatry input hold aspirin and Plavix in light of hematuria Continue Lipitor Pressure ulcer of sacral region, at least Stage 2, POA Turn and reposition q2hr Continue wound care DM II Insulin regimen per protocol Pharmacy Glycemic consult Monitor blood glucose levels Hypertension Continue [employer] 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 Monitor blood pressure H/O CVA hold aspirin, Plavix due to hematuria continue statin Hyperlipidemia Continue atorvastatin and colesevelam Hypothyroidism Continue levothyroxine GERD Continue pantoprazole BPH Continue tamsulosin DVT prophylaxis Lovenox/heparin contraindicated in light of hematuria SCDs contraindicated in light of PAD Code Status Full code Disposition PT OT prior to discharge Admission and Anticipated Discharge Date Admission Date: August 26, 2024 Subjective 08/28/2024 Patient was seen and examined in medical telemetry unit He has been complaining of pain in the rectum secondary to hemorrhoids and the current medicine is not helping His hematuria has been improving and almost cleared Denies any other significant symptoms Review of Systems Review of Systems: All systems reviewed and are unremarkable except as noted below Physical Exam Physical Exam: Sitting on a chair without any acute distress Constitutional: well developed, well nourished, + ill appearing and average body habitus Eyes: PERRL, conjunctivae normal, anicteric sclerae ENMT: external ear and nose normal, oropharynx normal Neck: trachea midline, no thyromegaly Respiratory: no respiratory distress Auscultation: lungs clear to auscultation bilaterally Cardiovascular: Rate/Rhythm: regular rate and regular rhythm; not tachycardic Heart Sounds: normal S1 and normal S2; no murmur Extremities: no edema Gastrointestinal (Abdomen): Inspection/Auscultation: normal bowel sounds; abdomen not distended Percussion/Palpation: abdomen soft; abdomen nontender Musculoskeletal: No acute arthritis involving any of the joint Neurologic: normal touch/pain/proprioception and moves all extremities; no focal motor deficits Psychiatric: A+Ox3, euthymic affect Lymphatic: no cervical or axillary lymphadenopathy Results & Data Results & Data Vital Signs (Past 12 Hours) Vital Signs Temp Pulse Pulse Resp BP Pulse Ox O2 Del Method 08/28/24 11:25 36.6 C 99 H 20 108/75 98 Room Air 08/28/24 08:27 83 08/28/24 08:10 36.6 C 81 20 112/73 97 Room Air 08/28/24 02:38 36.7 C 82 16 126/79 97 Room Air Laboratory Results Short CBC 08/27/24 08/28/24 Range/Units 20:48 07:41 WBC 13.85 H (4.8-10.8) K/ul Hgb 9.4 L 9.1 L (14.0-18.0) g/dl Hct 28.7 L 28.9 L (42.0-52.0) % Plt Count 389 (130-400) K/uL [facility] 08/28/24 07:41 Sodium 136 Potassium 3.9 Chloride 104 Carbon Dioxide 22 BUN 25 H Creatinine 0.58 L Glucose 135 H Calcium 8.7 Medications Administered Current Inpatient Medications Acetaminophen (Acetaminophen 500 Mg Tab) 1,000 mg PO Q8H BONNIE Stop: 09/25/24 13:44 Last Admin: 08/28/24 12:56 Dose: 1,000 mg Acetaminophen (Acetaminophen 325 Mg Tab) 650 mg PO Q4H PRN PRN Reason: Pain or Fever Stop: 09/25/24 15:22 Amlodipine Besylate (Amlodipine Besylate 5 Mg Tab) 5 mg PO QAM BONNIE Stop: 09/26/24 08:59 Last Admin: 08/28/24 09:48 Dose: 5 mg Atorvastatin Calcium (Atorvastatin 40 Mg Tab) 40 mg PO QAM BONNIE Stop: 09/26/24 08:59 Last Admin: 08/28/24 09:48 Dose: 40 mg Bisacodyl (Bisacodyl 10 Mg Supp) 10 mg MA DAILY PRN PRN Reason: Constipation Stop: 09/25/24 15:22 Collagenase (Collagenase Oint 30 Gm Tube) 1 appln EXT DAILY BONNIE Stop: 09/26/24 14:44 Last Admin: 08/28/24 09:49 Dose: 1 appln Dextrose (Dextrose 50% 50 Ml Syringe) 25 - 50 ml IV UD PRN; Protocol PRN Reason: Hypoglycemia Protocol Stop: 09/25/24 14:18 Docusate Sodium (Docusate Sodium 100 Mg Cap) 100 mg PO BID BONNIE Stop: 09/26/24 20:59 Last Admin: 08/28/24 09:47 Dose: 100 mg Ferrous Sulfate (Ferrous Sulfate 325 Mg Tab) 325 mg PO TIDM BONNIE Stop: 09/25/24 16:59 Last Admin: 08/28/24 12:56 Dose: 325 mg Gabapentin (Gabapentin 300 Mg Cap) 600 mg PO HS BONNIE Stop: 09/25/24 20:59 Last Admin: 08/27/24 21:34 Dose: 600 mg Gabapentin (Gabapentin 100 Mg Cap) 100 mg PO BID@0900,1400 BONNIE Stop: 09/25/24 20:59 Last Admin: 08/28/24 12:56 Dose: 100 mg Glucagon (Glucagon For Inj 1 Mg Vial) 1 mg SQ UD PRN; Protocol PRN Reason: Hypoglycemia Protocol Stop: 09/25/24 14:18 Glucose (Glucose 40% Gel 15 Gm Tube) 15 - 30 gm PO UD PRN; Protocol PRN Reason: Hypoglycemia Protocol Stop: 09/25/24 14:18 Glucose (Glucose 10 Tab/Tube) 4 - 8 tab PO UD PRN; Protocol PRN Reason: Hypoglycemia Protocol Stop: 09/25/24 14:18 Hydrocortisone (Hydrocortisone Hc 2.5% Crm 30gm Tube) 1 appln EXT BID [facility] Stop: 09/25/24 20:59 Last Admin: 08/28/24 09:49 Dose: 1 appln Hydrocortisone (Hydrocortisone Acetate 25 Mg Supp) 25 mg MA BID [facility] Stop: 09/27/24 20:59 Cefepime HCl (Maxipime 2000mg) 2,000 mg in 20 mls @ 5 mls/min IV Q8H [facility]; Protocol Stop: 09/05/24 18:59 Last Admin: 08/28/24 12:54 Dose: 5 mls/min Promethazine HCl (Phenergan) 6.25 mg in 50.25 mls @ 201 mls/hr IV Q6H PRN PRN Reason: Nausea And Vomiting Stop: 09/26/24 02:24 Last Infusion: 08/27/24 12:19 Dose: Infused Insulin Aspart (Insulin Aspart Per Unit Charge) 0 units SC [facility] Stop: 09/25/24 14:44 Last Admin: 08/28/24 12:56 Dose: 8 units Insulin Glargine (Lantus Per Unit Charge) 0 units SC [facility]; Protocol Stop: 09/25/24 20:59 Last Admin: 08/27/24 21:23 Dose: Not Given Lactobacillus Acidophilus (Advanced Probiotic 625 Mg Capsule) 1,250 mg PO DAILY [facility] Stop: 09/25/24 14:14 Last Admin: 08/28/24 09:47 Dose: 1,250 mg Levothyroxine Sodium (Levothyroxine Sodium 25 Mcg Tablet) [facility] Stop: 09/26/24 06:29 Last Admin: 08/28/24 05:38 Dose: 25 mcg Lidocaine HCl (Lidocaine 2% Jelly 5 Ml Tube) 5 ml EXT BID [facility] Stop: 09/25/24 18:14 Last Admin: 08/28/24 09:50 Dose: 5 ml Melatonin (Melatonin 3 Mg Tab) 6 mg PO HS [facility] Stop: 09/25/24 20:59 Last Admin: 08/27/24 21:33 Dose: 6 mg Miscellaneous (Carbohydrates For Hypoglycemia ) 15 - 30 gm PO UD PRN PRN Reason: Hypoglycemia Protocol Stop: 09/25/24 14:18 Miscellaneous (Colesevelam [Welchol] 625 Mg Tablet)--Order Awaiting Action) 1 each N/A QS [facility] Stop: 09/25/24 15:59 Last Admin: 08/28/24 12:25 Dose: Not Given Miscellaneous Information (Pharmacy Glycemic Mgmt Consult) 1 each N/A UD PRN PRN Reason: Consult Stop: 09/25/24 14:18 Morphine Sulfate (Morphine Sulfate 4 Mg/Ml 1 Ml Carp\Vial) 4 mg IV Q6H PRN PRN Reason: severe pain Stop: 09/09/24 15:29 Last Admin: 08/27/24 21:32 Dose: 4 mg Oxycodone HCl (Oxycodone Hcl Ir 5 Mg Tab (Immediate Release)) 5 mg PO BID PRN PRN Reason: Pain, Severe Stop: 09/09/24 15:22 Last Admin: 08/28/24 02:08 Dose: 5 mg Pantoprazole Sodium (Pantoprazole 40 Mg Tab) 40 mg PO DAILYBB [facility] Stop: 09/26/24 06:29 Last Admin: 08/28/24 05:38 Dose: 40 mg Polyethylene Glycol (Polyethylene (Miralax) 17 Gm Pack) 17 gm PO QDL PRN PRN Reason: Constipation Stop: 09/25/24 15:22 Senna/Docusate Sodium (Docusate Sodium/Senna 50/8.6mg Tab) 2 tab PO QDL PRN PRN Reason: Constipation Stop: 09/25/24 15:22 Sennosides (Senna 8.6 Mg Tab) 8.6 mg PO BID [facility] Stop: 09/25/24 20:59 Last Admin: 08/28/24 09:47 Dose: 8.6 mg Tamsulosin HCl (Tamsulosin Hcl 0.4 Mg Cap) 0.4 mg PO HS [facility] Stop: 09/25/24 20:59 Last Admin: 08/27/24 21:34 Dose: 0.4 mg
--- NOTE | 2024-08-28 14:43 | Pharmacy Report ---
Pharmacy Glycemic Short Note 2 - Date of Service August 28, 2024 - Glycemic Short BSG Results (Last 24 hours): 08/27/24 08/27/24 08/28/24 16:57 21:22 07:41 Glucose 135 H POC Glucose 154 H 119 H 08/28/24 08/28/24 07:42 12:08 Glucose POC Glucose 147 H 207 H OUTPATIENT ANTIDIABETIC REGIMEN: * insulin aspart sliding scale * Jardiance 25mg po daily * glimepiride 2mg po bid * metformin ER 1000mg po daily HbA1c: 5.6% on 08/10/24 ASSESSMENT: 08/28 * Reji received 6 units of insulin yesterday (all were bolus). BSGs were [id number]/dL. * Fasting BSG was in goal range this morning. CF was tightened yesterday so will continue the bolus insulin regimen. Will also continue Lantus scale (0, 5 or 10 units depending on BSG). 08/26 * Reji is a 74 year old male who was admitted today for gross hematuria. Pharmacy was consulted for glycemic management while he is admitted. * BSG from blood draw this morning was 296mg/dL. (no further readings since then) Patient is not yet ordered a diet. A weight based bolus insulin regimen with a stress of 2 was ordered to start now and a Lantus scale was added for HS (0,5, or 10 units depending on BSG). PLAN FOR INPATIENT GLYCEMIC CONTROL: * Hold outpatient diabetes medications * Basal insulin * Lantus scale at HS (0,5, or 10 units depending on BSG) * Bolus insulin * NovoLog per scale ACHS or Q6hrs while NPO * Goal Range: Low 120 mg/dL - High 160 mg/dL * Correction Factor: 30 mg/dL/unit * Nutritional / Prandial insulin per carb ratio of 1 unit per 8 grams CHO consumed
[2024-08-28] MEDS: ASPIRIN 81 MG ECTAB PO SCH (17:06)
[2024-08-28] MEDS: HYDROCORTISONE ACETATE 25 MG SUPP PR SCH (21:04)
[2024-08-29 07:22] LABS: Hematocrit (blood only) 28.5 % (42.0-52.0); Hemoglobin 9.0 g/dl (14.0-18.0); Immature Granulocytes # (auto) 0.13 K/uL (0.01-0.20); Immature Granulocytes % (auto) 1.1 %; Mean Corpuscular Hemoglobin 26.7 pg (25.0-34.0); Mean Corpuscular Volume 84.6 fL (80.0-100.0); Platelet Count 379 K/uL (130-400); RDW Standard Deviation 47.6 fL (36.4-46.3); Red Blood Count 3.37 M/uL (4.70-6.10); White Blood Count 11.68 K/ul (4.8-10.8)
[2024-08-29 07:46] LABS: Anion Gap 9.0 (3-11); Blood Urea Nitrogen 23.0 mg/dl (6-23); Calcium 8.6 mg/dl (8.6-10.3); Carbon Dioxide 23.0 mmol/L (21-32); Chloride 104.0 mmol/L (98-107); Creatinine Clr Calc Pharmacy 136.0 ml/min; Glucose 124.0 mg/dl (70-99(Fasting)); Potassium 3.5 mmol/L (3.5-5.1); Sodium 136.0 mmol/L (136-145)
[2024-08-29] MEDS: CLOPIDOGREL BISULFATE 75 MG TAB PO SCH (08:44)
--- NOTE | 2024-08-29 10:32 | Podiatry Progress Note ---
Date of Service August 29, 2024 Assessment & Plan (1) Status post transmetatarsal amputation of right foot: (2) Open wound of right ankle: (3) Diabetic ulcer of right foot associated with diabetes mellitus due to underlying condition, with fat layer exposed: (4) Pressure injury of toe of left foot, unstageable: (5) Ulcer of left great toe due to diabetes mellitus: Plan Bilateral foot wounds: S/P TMA right foot, dry gangrene distal medial left hallux. Right foot: s/p right TMA wound debridement 07/02, s/p 6 weeks IV antibiotics completed on 08/16/2024. - Continue dressing change once daily to forefoot and medial ankle wound cleansing with normal sterile saline and dressing with Aquacel Ag and a dry sterile dressing including ABD to the anterior ankle held in place with Kerlix and tape. Left foot: stable eschar in place to the distal aspect of left Hallux with no signs of local soft tissue infection. - [place] eschar with Betadine once daily and leave exposed to air. Avoid pressure to the distal left hallux including pressure from blankets and footboard. Continue bilateral heel offloading boots at all times while in bed. Elevate heels off bed with pillow behind the leg. Continue postop shoe bilateral to be worn for ambulation, short distance and transfer with assistance or walker for stability. Patient is established into wound care center based out of the [facility]. He is encouraged to continue to follow-up with wound care following discharge for ongoing monitoring of bilateral foot and groin wounds. Should be scheduled in the wound center within 1 week of discharge if possible. Patient questions whether or not hyperbaric oxygen therapy would be appropriate to aid in the care of his wounds as an outpatient. I explained that I do not believe this is necessary for his bilateral foot wound nor is it likely to be covered by his insurance however I cannot speak to the value of hyperbaric oxygen therapy for his groin wound and I recommend he discuss with his wound care provider as an outpatient for further recommendations. Thank you for consulting podiatry to hear this patient. Admission and Anticipated Discharge Date Admission Date: August 26, 2024 Subjective Patient seen resting comfortably in bedside chair. Bilateral foot is dressed with postop shoe in place. Patient denies pain to the bilateral foot. We discussed ongoing care on the bilateral foot wounds and patient is aware the importance of rest elevation minimizing weightbearing when possible using postop shoes and a walker for stability. Discussed ongoing dressing changes and wound care. Patient plans to follow-up at wound care center based out of the [facility]. Review of Systems Review of Systems: Reports hematuria present on admission has resolved. Patient denies nausea, vomiting, fever, chills, shortness of breath, chest pain. Denies pain in the bilateral foot. Physical Exam Physical Exam: Const: No signs of acute distress present. Denies nausea, vomiting, fever or chills. CV: Extremities: Capillary refill time is 3 seconds all digits of the left foot with exception of dry eschar to the hallux and to the amputation site of the right foot. Pedal pulses are nonpalpable bilateral. Recent right lower extremity bypass surgery with open/dehisced wound to the medial ankle. Lymph: No palpable or visible regional lymphadenopathy. Skin: Skin is thin and atrophic in the bilateral lower extremity below the knee with loss of hair growth. See wound exam Neuro: Loss of protective sensation of bilateral foot Psych: Mood/Affect: Mood is normal. Affect is normal. Cognition: Orientation is intact to person, place and time. Focused lower extremity musculoskeletal exam: Leg: No pain with compression of the calf muscle. Right foot: Status post transmetatarsal amputation which is well-healed laterally and open with granular wound medially. Wound is decreased in dimensions over the past week. Healthy granular wound bed. No active drainage. Scant serosanguineous drainage on Aquacel Ag dressing placed yesterday. Overall promising outlook given relatively rapid improvement seen over the patient's past 2 admissions. 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 Patient has a stable eschar to the distal medial aspect of the right great toe. Edges of the eschar starting to lift with underlying healthy epithelium. There is no signs of local soft tissue infection and eschar is well adhered to the underlying tissue. Optimistic that with time. Continued application of Betadine once daily and may lysing pressure to the area of this wound can heal without surgical intervention. Results & Data Results & Data Vital Signs (Past 12 Hours) Vital Signs Temp Pulse Pulse Resp BP Pulse Ox O2 Del Method 08/29/24 07:19 36.8 C 70 16 129/75 97 Room Air 08/29/24 05:48 65 08/29/24 04:00 36.5 C 72 17 97/64 L 99 Room Air 08/29/24 00:36 36.4 C L 72 18 120/80 97 Room Air 08/28/24 23:00 Room Air Laboratory Results WBC 11.68 Coding Level of Care Code 99134 SUB INP/OBS CARE 2/35MIN Diagnoses Status post transmetatarsal amputation of right foot Z89.431 Open wound of right ankle, initial encounter S91.001A Encounter type: initial encounter Diabetic ulcer of right midfoot associated with diabetes mellitus due to underlying condition, with fat layer exposed E08.621; L97.412 Diabetic foot ulcer location: midfoot Pressure injury of toe of left foot, unstageable L89.890 Ulcer of left great toe due to diabetes mellitus E11.621; L97.529 (2) Open wound of right ankle Encounter type: initial encounter Qualified Code(s): S91.001A - Unspecified open wound, right ankle, initial encounter (3) Diabetic ulcer of right foot associated with diabetes mellitus due to underlying condition, with fat layer exposed Diabetic foot ulcer location: midfoot Qualified Code(s): E08.621 - Diabetes mellitus due to underlying condition with foot ulcer; L97.412 - Non-pressure chronic ulcer of right heel and midfoot with fat layer exposed
[2024-08-29] MEDS: ACETAMINOPHEN 325 MG TAB PO PRN (12:49)
--- NOTE | 2024-08-29 13:46 | Hospitalist Progress Note ---
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 Hematuria, recurrent Indwelling Ware catheter History of prostatic varicosities Acute Prostatitis, Possible Emphysematous Cystitis In setting of dual antiplatelet therapy for PAD --S/P Cystoscopy with Cystolitholapaxy, Clot evacuation, Fulguration of bleeding prostatic Varicosities, and fulguration of bladder neck by on 08/10/24 --CT ABD Findings consistent with emphysematous cystitis. Likely clot within the urinary bladder. Possible prostatitis. Possible superficial soft tissue wound at the right inguinal region. No other acute findings seen. Otherwise as described. --Blood culture: Negative --Urine culture: Is growing Jyoti glabrata, awaiting sensitivity -- Continue empiric IV cefepime --Hold aspirin, Plavix secondary to hematuria --Hemoglobin remains stable at 9.1 --Bladder irrigation has been discontinued -- Appreciate urology -Clinically much better with clearance of hematuria and will ask urologist when aspirin and Plavix can be restarted Has been tolerating aspirin and Plavix without any evidence of bleeding Has had PT evaluation and recommended rehab Constipation with pain due to hemorrhoids Continue bowel regimen Will check KUB tomorrow Will give Anusol HC suppository twice daily on top of cream Denies any more rectal pain today Right groin wound,Peripheral Artery Disease, right common femoral to PT bypass with non-reversed GSV on 06/28, s/p Debridements Right Foot Wound,Right foot osteomyelitis, s/p right TMA wound debridement 07/02, s/p 6 weeks IV Ertapenem Sacral 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 Appreciate podiatry input hold aspirin and Plavix in light of hematuria Continue Lipitor Continue with the wound care as advised Pressure ulcer of sacral region, at least Stage 2, POA Turn and reposition q2hr Continue wound care DM II Insulin regimen per protocol Pharmacy Glycemic consult Monitor blood glucose levels Hypertension Continue [employer] 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 Monitor blood pressure H/O CVA hold aspirin, Plavix due to hematuria continue statin Hyperlipidemia Continue atorvastatin and colesevelam Hypothyroidism Continue levothyroxine GERD Continue pantoprazole BPH Continue tamsulosin DVT prophylaxis Lovenox/heparin contraindicated in light of hematuria SCDs contraindicated in light of PAD Code Status Full code Disposition PT OT prior to discharge- recommended rehab Admission and Anticipated Discharge Date Admission Date: August 26, 2024 Subjective 08/28/2024 Patient was seen and examined in medical telemetry unit He has been complaining of pain in the rectum secondary to hemorrhoids and the current medicine is not helping His hematuria has been improving and almost cleared Denies any other significant symptoms 08/29/2024 The patient was seen and examined in medical telemetry unit He has been doing much better and there is no more hematuria His groin and foot wounds are being taken care of Awaiting final sensitivity for UTI Review of Systems Review of Systems: All systems reviewed and are unremarkable except as noted below Physical Exam Physical Exam: Sitting on a chair without any acute distress Constitutional: well developed, well nourished, + ill appearing and average body habitus Eyes: PERRL, conjunctivae normal, anicteric sclerae ENMT: external ear and nose normal, oropharynx normal Neck: trachea midline, no thyromegaly Respiratory: no respiratory distress Auscultation: lungs clear to auscultation bilaterally Cardiovascular: Rate/Rhythm: regular rate and regular rhythm; not tachycardic Heart Sounds: normal S1 and normal S2; no murmur Extremities: no edema Gastrointestinal (Abdomen): Inspection/Auscultation: normal bowel sounds; abdomen not distended Percussion/Palpation: abdomen soft; abdomen nontender Neurologic: normal touch/pain/proprioception and moves all extremities; no focal motor deficits Psychiatric: A+Ox3, euthymic affect Lymphatic: no cervical or axillary lymphadenopathy Results & Data Results & Data Vital Signs (Past 12 Hours) Vital Signs Temp Pulse Pulse Resp BP Pulse Ox O2 Del Method 08/29/24 10:54 36.9 C 91 H 20 124/80 97 Room Air 08/29/24 07:19 36.8 C 70 16 129/75 97 Room Air 08/29/24 05:48 65 08/29/24 04:00 36.5 C 72 17 97/64 L 99 Room Air Laboratory Results Short CBC 08/29/24 Range/Units 05:45 WBC 11.68 H (4.8-10.8) K/ul Hgb 9.0 L (14.0-18.0) g/dl Hct 28.5 L (42.0-52.0) % Plt Count 379 (130-400) K/uL BMP 08/29/24 05:45 Sodium 136 Potassium 3.5 Chloride 104 Carbon Dioxide 23 BUN 23 Creatinine 0.50 L Glucose 124 H Calcium 8.6 Medications Administered Current Inpatient Medications Acetaminophen (Acetaminophen 500 Mg Tab) 1,000 mg PO Q8H [facility] Stop: 09/25/24 13:44 Last Admin: 08/29/24 12:51 Dose: Not Given Acetaminophen (Acetaminophen 325 Mg Tab) 650 mg PO Q4H PRN PRN Reason: Pain or Fever Stop: 09/25/24 15:22 Last Admin: 08/29/24 12:49 Dose: 650 mg Amlodipine Besylate (Amlodipine Besylate 5 Mg Tab) [facility] [place]: 09/26/24 08:59 Last Admin: 08/29/24 08:30 Dose: 5 mg Aspirin (Aspirin 81 Mg Ectab) [facility] [place]: 09/27/24 15:14 Last Admin: 08/29/24 08:45 Dose: 81 mg Atorvastatin Calcium (Atorvastatin 40 Mg Tab) 40 [facility] [place]: 09/26/24 08:59 Last Admin: 08/29/24 08:30 Dose: 40 mg Bisacodyl (Bisacodyl 10 Mg Supp) 10 mg MN DAILY PRN PRN Reason: Constipation Stop: 09/25/24 15:22 Clopidogrel Bisulfate (Clopidogrel Bisulfate 75 Mg Tab) 75 [facility] [place]: 09/28/24 08:59 Last Admin: 08/29/24 08:44 Dose: 75 mg Collagenase (Collagenase Oint 30 Gm Tube) 1 appln EXT DAILY [facility] Stop: 09/26/24 14:44 Last Admin: 08/29/24 08:45 Dose: 1 appln Dextrose (Dextrose 50% 50 Ml Syringe) 25 - 50 ml IV UD PRN; Protocol PRN Reason: Hypoglycemia Protocol Stop: 09/25/24 14:18 Docusate Sodium (Docusate Sodium 100 Mg Cap) 100 mg PO BID [facility] Stop: 09/26/24 20:59 Last Admin: 08/29/24 08:32 Dose: 100 mg Ferrous Sulfate (Ferrous Sulfate 325 Mg Tab) 325 mg PO TIDM [facility] Stop: 09/25/24 16:59 Last Admin: 08/29/24 12:38 Dose: 325 mg Gabapentin (Gabapentin 300 Mg Cap) 600 mg PO HS [facility] Stop: 09/25/24 20:59 Last Admin: 08/28/24 21:04 Dose: 600 mg Gabapentin (Gabapentin 100 Mg Cap) 100 mg PO BID@0900,1400 [facility] Stop: 09/25/24 20:59 Last Admin: 08/29/24 13:37 Dose: 100 mg Glucagon (Glucagon For Inj 1 Mg Vial) 1 mg SQ UD PRN; Protocol PRN Reason: Hypoglycemia Protocol Stop: 09/25/24 14:18 Glucose (Glucose 40% Gel 15 Gm Tube) 15 - 30 gm PO UD PRN; Protocol PRN Reason: Hypoglycemia Protocol Stop: 09/25/24 14:18 Glucose (Glucose 10 Tab/Tube) 4 - 8 tab PO UD PRN; Protocol PRN Reason: Hypoglycemia Protocol Stop: 09/25/24 14:18 Hydrocortisone (Hydrocortisone Hc 2.5% Crm 30gm Tube) 1 appln EXT BID [facility] Stop: 09/25/24 20:59 Last Admin: 08/29/24 08:45 Dose: 1 appln Hydrocortisone (Hydrocortisone Acetate 25 Mg Supp) 25 mg MN BID [facility] Stop: 09/27/24 20:59 Last Admin: 08/29/24 08:45 Dose: 25 mg Cefepime HCl (Maxipime 2000mg) 2,000 mg in 20 mls @ 5 mls/min IV Q8H [facility]; Protocol Stop: 09/05/24 18:59 Last Admin: 08/29/24 10:30 Dose: 5 mls/min Promethazine HCl (Phenergan) 6.25 mg in 50.25 mls @ 201 mls/hr IV Q6H PRN PRN Reason: Nausea And Vomiting Stop: 09/26/24 02:24 Last Infusion: 08/27/24 12:19 Dose: Infused Insulin Aspart (Insulin Aspart Per Unit Charge) 0 units SC ACHS [facility] Stop: 09/25/24 14:44 Last Admin: 08/29/24 12:38 Dose: 10 units Insulin Glargine (Lantus Per Unit Charge) 0 units SC [facility]; Protocol Stop: 09/25/24 20:59 Last Admin: 08/28/24 20:35 Dose: Not Given Lactobacillus Acidophilus (Advanced Probiotic 625 Mg Capsule) 1,250 mg PO DAILY [facility] Stop: 09/25/24 14:14 Last Admin: 08/29/24 08:29 Dose: 1,250 mg Levothyroxine Sodium (Levothyroxine Sodium 25 Mcg Tablet) [facility] Stop: 09/26/24 06:29 Last Admin: 08/29/24 06:15 Dose: 25 mcg Lidocaine HCl (Lidocaine 2% Jelly 5 Ml Tube) 5 ml EXT BID [facility] Stop: 09/25/24 18:14 Last Admin: 08/29/24 08:32 Dose: 5 ml Melatonin (Melatonin 3 Mg Tab) 6 mg PO [facility] Stop: 09/25/24 20:59 Last Admin: 08/28/24 21:02 Dose: 6 mg Miscellaneous (Carbohydrates For Hypoglycemia ) 15 - 30 gm PO UD PRN PRN Reason: Hypoglycemia Protocol Stop: 09/25/24 14:18 Miscellaneous (Colesevelam [Welchol] 625 Mg Tablet)--Order Awaiting Action) 1 each N/A QS [facility] Stop: 09/25/24 15:59 Last Admin: 08/29/24 08:52 Dose: Not Given Miscellaneous Information (Pharmacy Glycemic Mgmt Consult) 1 each N/A UD PRN PRN Reason: Consult Stop: 09/25/24 14:18 Morphine Sulfate (Morphine Sulfate 4 Mg/Ml 1 Ml Carp\Vial) 4 mg IV Q6H PRN PRN Reason: severe pain Stop: 09/09/24 15:29 Last Admin: 08/28/24 17:13 Dose: 4 mg Oxycodone HCl (Oxycodone Hcl Ir 5 Mg Tab (Immediate Release)) 5 mg PO BID PRN PRN Reason: Pain, Severe Stop: 09/09/24 15:22 Last Admin: 08/28/24 02:08 Dose: 5 mg Pantoprazole Sodium (Pantoprazole 40 Mg Tab) 40 mg PO DAILYBB [facility] Stop: 09/26/24 06:29 Last Admin: 08/29/24 06:15 Dose: 40 mg Polyethylene Glycol (Polyethylene (Miralax) 17 Gm Pack) 17 gm PO QDL PRN PRN Reason: Constipation Stop: 09/25/24 15:22 Senna/Docusate Sodium (Docusate Sodium/Senna 50/8.6mg Tab) 2 tab PO QDL PRN PRN Reason: Constipation Stop: 09/25/24 15:22 Sennosides (Senna 8.6 Mg Tab) 8.6 mg PO BID [facility] Stop: 09/25/24 20:59 Last Admin: 08/29/24 08:32 Dose: 8.6 mg Tamsulosin HCl (Tamsulosin Hcl 0.4 Mg Cap) 0.4 mg PO HS [facility] Stop: 09/25/24 20:59 Last Admin: 08/28/24 21:04 Dose: 0.4 mg
[2024-08-30 07:20] LABS: Hematocrit (blood only) 29.6 % (42.0-52.0); Hemoglobin 9.4 g/dl (14.0-18.0); Immature Granulocytes # (auto) 0.17 K/uL (0.01-0.20); Immature Granulocytes % (auto) 1.3 %; Mean Corpuscular Hemoglobin 27.0 pg (25.0-34.0); Mean Corpuscular Volume 85.1 fL (80.0-100.0); Platelet Count 403 K/uL (130-400); RDW Standard Deviation 47.0 fL (36.4-46.3); Red Blood Count 3.48 M/uL (4.70-6.10); White Blood Count 12.67 K/ul (4.8-10.8)
[2024-08-30 07:51] LABS: Anion Gap 7.0 (3-11); Blood Urea Nitrogen 17.0 mg/dl (6-23); Calcium 8.6 mg/dl (8.6-10.3); Carbon Dioxide 25.0 mmol/L (21-32); Chloride 106.0 mmol/L (98-107); Creatinine Clr Calc Pharmacy 136.0 ml/min; Glucose 144.0 mg/dl (70-99(Fasting)); Potassium 3.6 mmol/L (3.5-5.1); Sodium 138.0 mmol/L (136-145)
--- NOTE | 2024-08-30 08:47 | Urology Progress Note ---
Date of Service August 30, 2024 Assessment & Plan (1) Gross hematuria: Plan: Hematuria improved after CBI. Labs reviewed: hgb 9.4, wbc 12.67, Cr 0.50 Urine culture : bradley glabrata, sensitivities pending He did previously see [facility] urology but thinks he wants to continue his care here with [facility] Can follow up with Dr Hughes as outpatient (2) Acute prostatitis: (3) Indwelling Ware catheter present: Admission and Anticipated Discharge Date Admission Date: August 26, 2024 Subjective 74 year old patient s/p s/p Cystoscopy with Cystolitholapaxy, Clot evacuation, Fulguration of bleeding prostatic Varicosities, and fulguration of bladder neck, admitted with hematuria/UTI. Urine has improved with CBI. CBI has been stopped and urine continues to be clear yellow. No pain at this time. Physical Exam Constitutional: + ill appearing; no acute distress Respiratory: normal respiratory effort; no respiratory distress Gastrointestinal (Abdomen): Percussion/Palpation: abdomen soft; abdomen nontender Psychiatric: A+Ox3, euthymic affect Genitourinary: catheter draining clear yellow urine Results & Data Vital Signs (Past 12 Hours) Vital Signs Temp Pulse Pulse Resp BP BP Pulse Ox 08/30/24 07:11 36.9 C 73 18 124/75 97 08/30/24 05:50 71 08/30/24 03:08 36.4 C L 69 18 112/67 95 08/29/24 23:20 36.8 C 78 18 107/67 96 08/29/24 22:04 69 08/29/24 21:22 O2 Del Method 08/30/24 07:11 Room Air 08/30/24 05:50 08/30/24 03:08 Room Air 08/29/24 23:20 Room Air 08/29/24 22:04 08/29/24 21:22 Room Air PG Care Time/CCT Total # of Minutes Spent Total Time Spent with Patient: Total time spent is greater than 50% in coordination of care (as documented) at patient's floor/unit and/or counseling patient: Coding Level of Care Code 07612 SUB INP/OBS CARE 03/09MIN Diagnoses Gross hematuria R31.0 Acute prostatitis N41.0 Indwelling Ware catheter present Z97.8
--- NOTE | 2024-08-30 11:08 | Pharmacy Report ---
Pharmacy Glycemic Short Note 2 - Date of Service August 30, 2024 - Glycemic Short BSG Results (Last 24 hours): 08/29/24 08/29/24 08/29/24 12:03 17:03 19:37 Glucose POC Glucose 248 H 119 H 180 H 08/30/24 08/30/24 06:42 07:54 Glucose 144 H POC Glucose 174 H OUTPATIENT ANTIDIABETIC REGIMEN: * insulin aspart sliding scale * Jardiance 25mg po daily * glimepiride 2mg po bid * metformin ER 1000mg po daily HbA1c: 5.6% on 08/10/24 ASSESSMENT: 08/30 * Reji received 23 units of insulin yesterday (5 units of Lantus) * Fasting BSG of 174 mg/dL. Last evening patient received first dose of basal insulin, despite this fasting trending upward (highest its been this admission). Will conservatively titrate up the basal dose for this evening. * Post prandial BSGs are acceptable. Lunch tends to be the highest BSG of the day. Will tighten carb coverage with breakfast to see if this helps avoid lunchtime hyperglycemia. 08/28 * Reji received 6 units of insulin yesterday (all were bolus). BSGs were [phone]/dL. * Fasting BSG was in goal range this morning. CF was tightened yesterday so will continue the bolus insulin regimen. Will also continue Lantus scale (0, 5 or 10 units depending on BSG). 08/26 * Reji is a 74 year old male who was admitted today for gross hematuria. Pharmacy was consulted for glycemic management while he is admitted. * BSG from blood draw this morning was 296mg/dL. (no further readings since then) Patient is not yet ordered a diet. A weight based bolus insulin regimen with a stress of 2 was ordered to start now and a Lantus scale was added for HS (0,5, or 10 units depending on BSG). PLAN FOR INPATIENT GLYCEMIC CONTROL: * Hold outpatient diabetes medications * Basal insulin * Lantus 8 units SC HS * Bolus insulin * NovoLog per scale ACHS or Q6hrs while NPO * Goal Range: Low 120 mg/dL - High 160 mg/dL Breakfast: * Correction Factor: 25 mg/dL/unit * Nutritional / Prandial insulin per carb ratio of 1 unit per 6 grams CHO consumed Lunch/dinner/HS: * Correction Factor: 30 mg/dL/unit * Nutritional / Prandial insulin per carb ratio of 1 unit per 7 grams CHO consumed
--- NOTE | 2024-08-30 15:03 | Hospitalist Progress Note ---
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 Hematuria, recurrent Indwelling Ware catheter History of prostatic varicosities Acute Prostatitis, Possible Emphysematous Cystitis In setting of dual antiplatelet therapy for PAD --S/P Cystoscopy with Cystolitholapaxy, Clot evacuation, Fulguration of bleeding prostatic Varicosities, and fulguration of bladder neck by on 08/10/24 --CT ABD Findings consistent with emphysematous cystitis. Likely clot within the urinary bladder. Possible prostatitis. Possible superficial soft tissue wound at the right inguinal region. No other acute findings seen. Otherwise as described. --Blood culture: Negative --Urine culture: Is growing Jyoti glabrata, awaiting sensitivity -- Continue empiric IV cefepime --Hold aspirin, Plavix secondary to hematuria --Hemoglobin remains stable at 9.1 --Bladder irrigation has been discontinued -- Appreciate urology -Clinically much better with clearance of hematuria and will ask urologist when aspirin and Plavix can be restarted Has been tolerating aspirin and Plavix without any evidence of bleeding Has had PT evaluation and recommended rehab No more hematuria and does not have any urinary symptoms Has been on intravenous cefepime which will be discontinued tomorrow and awaiting sensitivity testing for the Jyoti Glabrata in the urine without any symptoms Infectious disease has been consulted for guidance of therapy Constipation with pain due to hemorrhoids Continue bowel regimen Will check KUB tomorrow Will give Anusol HC suppository twice daily on top of cream Denies any more rectal pain today Right groin wound,Peripheral Artery Disease, right common femoral to PT bypass with non-reversed GSV on 06/28, s/p Debridements Right Foot Wound,Right foot osteomyelitis, s/p right TMA wound debridement 07/02, s/p 6 weeks IV Ertapenem Sacral 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 consult interior specialist Appreciate podiatry input hold aspirin and Plavix in light of hematuria Continue Lipitor Continue with the wound care as advised Pressure ulcer of sacral region, at least Stage 2, POA Turn and reposition q2hr Continue wound care DM II Insulin regimen per protocol Pharmacy Glycemic consult Monitor blood glucose levels 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 Monitor blood pressure H/O CVA hold aspirin, Plavix due to hematuria continue statin Hyperlipidemia Continue atorvastatin and colesevelam Hypothyroidism Continue levothyroxine GERD Continue pantoprazole BPH Continue tamsulosin DVT prophylaxis Lovenox/heparin contraindicated in light of hematuria SCDs contraindicated in light of PAD Code Status Full code Disposition PT OT prior to discharge- recommended rehab Awaiting approval from the rehab facility Admission and Anticipated Discharge Date Admission Date: August 26, 2024 Subjective 08/28/2024 Patient was seen and examined in medical telemetry unit He has been complaining of pain in the rectum secondary to hemorrhoids and the current medicine is not helping His hematuria has been improving and almost cleared Denies any other significant symptoms 08/29/2024 The patient was seen and examined in medical telemetry unit He has been doing much better and there is no more hematuria His groin and foot wounds are being taken care of Awaiting final sensitivity for UTI 08/30/2024 The patient was seen and examined in medical telemetry unit in presence of his son He has been feeling much better and wants to be No more hematuria and no UTI symptoms Awaiting placement Review of Systems Review of Systems: All systems reviewed and are unremarkable except as noted below Physical Exam Physical Exam: Sitting on a chair without any acute distress Constitutional: well developed, well nourished, + ill appearing and average body habitus Eyes: PERRL, conjunctivae normal, anicteric sclerae ENMT: external ear and nose normal, oropharynx normal Neck: trachea midline, no thyromegaly Respiratory: no respiratory distress Auscultation: lungs clear to auscultation bilaterally Cardiovascular: Rate/Rhythm: regular rate and regular rhythm; not tachycardic Heart Sounds: normal S1 and normal S2; no murmur Extremities: no edema Gastrointestinal (Abdomen): Inspection/Auscultation: normal bowel sounds; abdomen not distended Percussion/Palpation: abdomen soft; abdomen nontender Neurologic: normal touch/pain/proprioception and moves all extremities; no focal motor deficits Psychiatric: A+Ox3, euthymic affect Lymphatic: no cervical or axillary lymphadenopathy Results & Data Results & Data Vital Signs (Past 12 Hours) Vital Signs Temp Pulse Pulse Resp BP BP Pulse Ox 08/30/24 14:51 36.9 C 95 H 18 138/74 98 08/30/24 11:23 36.6 C 76 18 101/64 98 08/30/24 07:11 36.9 C 73 18 124/75 97 08/30/24 05:50 71 08/30/24 03:08 36.4 C L 69 18 112/67 95 O2 Del Method 08/30/24 14:51 Room Air 08/30/24 11:23 Room Air 08/30/24 07:11 Room Air 08/30/24 05:50 08/30/24 03:08 Room Air Laboratory Results Short CBC 08/30/24 Range/Units 06:42 WBC 12.67 H (4.8-10.8) K/ul Hgb 9.4 L (14.0-18.0) g/dl Hct 29.6 L (42.0-52.0) % Plt Count 403 H (130-400) K/uL BMP 08/30/24 06:42 Sodium 138 Potassium 3.6 Chloride 106 Carbon Dioxide 25 BUN 17 Creatinine 0.50 L Glucose 144 H Calcium 8.6 Medications Administered Current Inpatient Medications Acetaminophen (Acetaminophen 500 Mg Tab) 1,000 mg PO Q8H [facility] Stop: 09/25/24 13:44 Last Admin: 08/30/24 13:07 Dose: 1,000 mg Amlodipine Besylate (Amlodipine Besylate 5 Mg Tab) [facility] [place] Stop: 09/26/24 08:59 Last Admin: 08/30/24 08:42 Dose: 5 mg Aspirin (Aspirin 81 Mg Ectab) [facility] [place] Stop: 09/27/24 15:14 Last Admin: 08/30/24 08:41 Dose: 81 mg Atorvastatin Calcium (Atorvastatin 40 Mg Tab) [facility] [place] Stop: 09/26/24 08:59 Last Admin: 08/30/24 08:42 Dose: 40 mg Bisacodyl (Bisacodyl 10 Mg Supp) 10 mg [place] DAILY PRN PRN Reason: Constipation Stop: 09/25/24 15:22 Last Admin: 08/29/24 15:40 Dose: 10 mg Clopidogrel Bisulfate (Clopidogrel Bisulfate 75 Mg Tab) 75 mg PO QAM [facility] Stop: 09/28/24 08:59 Last Admin: 08/30/24 08:42 Dose: 75 mg Collagenase (Collagenase Oint 30 Gm Tube) 1 appln EXT DAILY [facility] Stop: 09/26/24 14:44 Last Admin: 08/30/24 09:20 Dose: 1 appln Dextrose (Dextrose 50% 50 Ml Syringe) 25 - 50 ml IV UD PRN; Protocol PRN Reason: Hypoglycemia Protocol Stop: 09/25/24 14:18 Docusate Sodium (Docusate Sodium 100 Mg Cap) 100 mg PO BID [facility] Stop: 09/26/24 20:59 Last Admin: 08/30/24 08:42 Dose: 100 mg Ferrous Sulfate (Ferrous Sulfate 325 Mg Tab) 325 mg PO TIDM [facility] Stop: 09/25/24 16:59 Last Admin: 08/30/24 12:38 Dose: 325 mg Gabapentin (Gabapentin 300 Mg Cap) 600 mg PO HS [facility] Stop: 09/25/24 20:59 Last Admin: 08/29/24 21:00 Dose: 600 mg Gabapentin (Gabapentin 100 Mg Cap) 100 mg PO BID@0900,1400 [facility] Stop: 09/25/24 20:59 Last Admin: 08/30/24 13:07 Dose: 100 mg Glucagon (Glucagon For Inj 1 Mg Vial) 1 mg SQ UD PRN; Protocol PRN Reason: Hypoglycemia Protocol Stop: 09/25/24 14:18 Glucose (Glucose 40% Gel 15 Gm Tube) 15 - 30 gm PO UD PRN; Protocol PRN Reason: Hypoglycemia Protocol Stop: 09/25/24 14:18 Glucose (Glucose 10 Tab/Tube) 4 - 8 tab PO UD PRN; Protocol PRN Reason: Hypoglycemia Protocol Stop: 09/25/24 14:18 Hydrocortisone (Hydrocortisone Hc 2.5% Crm 30gm Tube) 1 appln EXT BID [facility] Stop: 09/25/24 20:59 Last Admin: 08/30/24 08:43 Dose: 1 appln Hydrocortisone (Hydrocortisone Acetate 25 Mg Supp) 25 mg [place] BID [facility] Stop: 09/27/24 20:59 Last Admin: 08/30/24 08:43 Dose: 25 mg Cefepime HCl (Maxipime 2000mg) 2,000 mg in 20 mls @ 5 mls/min IV Q8H [facility]; Protocol Stop: 09/05/24 18:59 Last Admin: 08/30/24 10:39 Dose: 5 mls/min Promethazine HCl (Phenergan) 6.25 mg in 50.25 mls @ 201 mls/hr IV Q6H PRN PRN Reason: Nausea And Vomiting Stop: 09/26/24 02:24 Last Infusion: 08/27/24 12:19 Dose: Infused Insulin Aspart (Insulin Aspart Per Unit Charge) 0 units SC DAILY@0730 [facility] Stop: 09/30/24 07:29 Insulin Aspart (Insulin Aspart Per Unit Charge) 0 units SC 1130,1630,2100 [facility] Stop: 09/29/24 16:29 Insulin Glargine (Lantus Per Unit Charge) 8 units SC [facility] Stop: 09/29/24 20:59 Lactobacillus Acidophilus (Advanced Probiotic 625 Mg Capsule) 1,250 mg PO DAILY [facility] Stop: 09/25/24 14:14 Last Admin: 08/30/24 08:41 Dose: 1,250 mg Levothyroxine Sodium (Levothyroxine Sodium 25 Mcg Tablet) 25 mcg PO DAILYBB [facility] Stop: 09/26/24 06:29 Last Admin: 08/30/24 06:23 Dose: 25 mcg Lidocaine HCl (Lidocaine 2% Jelly 5 Ml Tube) 5 ml EXT BID [facility] Stop: 09/25/24 18:14 Last Admin: 08/30/24 08:44 Dose: 5 ml Melatonin (Melatonin 3 Mg Tab) 6 mg PO HS [facility] Stop: 09/25/24 20:59 Last Admin: 08/29/24 20:58 Dose: 6 mg Miscellaneous (Carbohydrates For Hypoglycemia ) 15 - 30 gm PO UD PRN PRN Reason: Hypoglycemia Protocol Stop: 09/25/24 14:18 Miscellaneous (Colesevelam [Welchol] 625 Mg Tablet)--Order Awaiting Action) 1 each N/A QS [facility] Stop: 09/25/24 15:59 Last Admin: 08/30/24 13:05 Dose: Not Given Miscellaneous Information (Pharmacy Glycemic Mgmt Consult) 1 each N/A UD PRN PRN Reason: Consult Stop: 09/25/24 14:18 Morphine Sulfate (Morphine Sulfate 4 Mg/Ml 1 Ml Carp\Vial) 4 mg IV Q6H PRN PRN Reason: severe pain Stop: 09/09/24 15:29 Last Admin: 08/28/24 17:13 Dose: 4 mg Oxycodone HCl (Oxycodone Hcl Ir 5 Mg Tab (Immediate Release)) 5 mg PO BID PRN PRN Reason: Pain, Severe Stop: 09/09/24 15:22 Last Admin: 08/28/24 02:08 Dose: 5 mg Pantoprazole Sodium (Pantoprazole 40 Mg Tab) 40 mg PO DAILYBB [facility] Stop: 09/26/24 06:29 Last Admin: 08/30/24 06:23 Dose: 40 mg Polyethylene Glycol (Polyethylene (Miralax) 17 Gm Pack) 17 gm PO QDL PRN PRN Reason: Constipation Stop: 09/25/24 15:22 Senna/Docusate Sodium (Docusate Sodium/Senna 50/8.6mg Tab) 2 tab PO QDL PRN PRN Reason: Constipation Stop: 09/25/24 15:22 Sennosides (Senna 8.6 Mg Tab) 8.6 mg PO BID [facility] Stop: 09/25/24 20:59 Last Admin: 08/30/24 08:47 Dose: 8.6 mg Tamsulosin HCl (Tamsulosin Hcl 0.4 Mg Cap) 0.4 mg PO HS [facility] Stop: 09/25/24 20:59 Last Admin: 08/29/24 20:59 Dose: 0.4 mg
[2024-08-30] MEDS: INSULIN ASPART PER UNIT CHARGE SC SCH (18:14)
[2024-08-30] MEDS: LANTUS PER UNIT CHARGE SC SCH (21:04)
[2024-08-31] MEDS: INSULIN ASPART PER UNIT CHARGE SC SCH (08:51)
--- NOTE | 2024-08-31 12:45 | Hospitalist Progress Note ---
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 Hematuria, recurrent Indwelling Ware catheter History of prostatic varicosities Acute Prostatitis, Possible Emphysematous Cystitis In setting of dual antiplatelet therapy for PAD --S/P Cystoscopy with Cystolitholapaxy, Clot evacuation, Fulguration of bleeding prostatic Varicosities, and fulguration of bladder neck by on 08/10/24 --CT ABD Findings consistent with emphysematous cystitis. Likely clot within the urinary bladder. Possible prostatitis. Possible superficial soft tissue wound at the right inguinal region. No other acute findings seen. Otherwise as described. --Blood culture: Negative --Urine culture: Is growing Jyoti glabrata, awaiting sensitivity -- Continue empiric IV cefepime --Hold aspirin, Plavix secondary to hematuria --Hemoglobin remains stable at 9.1 --Bladder irrigation has been discontinued -- Appreciate urology -Clinically much better with clearance of hematuria and will ask urologist when aspirin and Plavix can be restarted Has been tolerating aspirin and Plavix without any evidence of bleeding Has had PT evaluation and recommended rehab No more hematuria and does not have any urinary symptoms Has been on intravenous cefepime which will be discontinued tomorrow and awaiting sensitivity testing for the Jyoti Glabrata in the urine without any symptoms Infectious disease has been consulted for guidance of therapy Denies any fever and chills and no urinary symptoms Awaiting placement and also ID evaluation Constipation with pain due to hemorrhoids Continue bowel regimen Will check KUB tomorrow Will give Anusol HC suppository twice daily on top of cream Denies any more rectal pain today Denies any more rectal pain Right groin wound,Peripheral Artery Disease, right common femoral to PT bypass with non-reversed GSV on 06/28, s/p Debridements Right Foot Wound,Right foot osteomyelitis, s/p right TMA wound debridement 07/02, s/p 6 weeks IV Ertapenem Sacral 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 consult 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 test 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 Appreciate podiatry input hold aspirin and Plavix in light of hematuria Continue Lipitor Continue with the wound care as advised Continue dressing as advised by the wound care patient's Pressure ulcer of sacral region, at least Stage 2, POA Turn and reposition q2hr Continue wound care DM II Insulin regimen per protocol Pharmacy Glycemic consult Monitor blood glucose levels 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 Monitor blood pressure H/O CVA hold aspirin, Plavix due to hematuria continue statin Hyperlipidemia Continue atorvastatin and colesevelam Hypothyroidism Continue levothyroxine GERD Continue pantoprazole BPH Continue tamsulosin DVT prophylaxis Lovenox/heparin contraindicated in light of hematuria SCDs contraindicated in light of PAD Code Status Full code Disposition PT OT prior to discharge- recommended rehab Awaiting approval from the rehab facility Admission and Anticipated Discharge Date Admission Date: August 26, 2024 Subjective 08/28/2024 Patient was seen and examined in medical telemetry unit He has been complaining of pain in the rectum secondary to hemorrhoids and the current medicine is not helping His hematuria has been improving and almost cleared Denies any other significant symptoms 08/29/2024 The patient was seen and examined in medical telemetry unit He has been doing much better and there is no more hematuria His groin and foot wounds are being taken care of Awaiting final sensitivity for UTI 08/30/2024 The patient was seen and examined in medical telemetry unit in presence of his son He has been feeling much better and wants to be No more hematuria and no UTI symptoms Awaiting placement 08/31/2024 The patient was seen and examined in medical telemetry unit He has been stable and awaiting rehab Denies any urinary symptoms and the rectal pain is relieved Review of Systems Review of Systems: All systems reviewed and are unremarkable except as noted below Physical Exam Physical Exam: Sitting on a chair without any acute distress Constitutional: well developed, well nourished, + ill appearing and average body habitus Eyes: PERRL, conjunctivae normal, anicteric sclerae ENMT: external ear and nose normal, oropharynx normal Neck: trachea midline, no thyromegaly Respiratory: no respiratory distress Auscultation: lungs clear to auscultation bilaterally Cardiovascular: Rate/Rhythm: regular rate and regular rhythm; not tachycardic Heart Sounds: normal S1 and normal S2; no murmur Extremities: no edema Gastrointestinal (Abdomen): Inspection/Auscultation: normal bowel sounds; abdomen not distended Percussion/Palpation: abdomen soft; abdomen nontender Neurologic: normal touch/pain/proprioception and moves all extremities; no focal motor deficits Psychiatric: A+Ox3, euthymic affect Lymphatic: no cervical or axillary lymphadenopathy Results & Data Results & Data Vital Signs (Past 12 Hours) Vital Signs Temp Pulse Pulse Resp BP Pulse Ox O2 Del Method 08/31/24 11:31 36.7 C 65 18 118/78 98 Room Air 08/31/24 09:24 78 08/31/24 08:11 36.4 C L 81 17 98/64 L 96 Room Air 08/31/24 07:23 Room Air 08/31/24 03:49 36.4 C L 73 14 107/67 96 Room Air Medications Administered Current Inpatient Medications Acetaminophen (Acetaminophen 500 Mg Tab) 1,000 mg PO Q8H [facility] Stop: 09/25/24 13:44 Last Admin: 08/31/24 05:38 Dose: 1,000 mg Amlodipine Besylate (Amlodipine Besylate 5 Mg Tab) [facility] [place] Stop: 09/26/24 08:59 Last Admin: 08/31/24 08:40 Dose: 5 mg Aspirin (Aspirin 81 Mg Ectab) 81 mg PO QA[facility] [place] Stop: 09/27/24 15:14 Last Admin: 08/31/24 08:40 Dose: 81 mg Atorvastatin Calcium (Atorvastatin 40 Mg Tab) 40 mg PO QA[facility] [place] Stop: 09/26/24 08:59 Last Admin: 08/31/24 08:41 Dose: 40 mg Bisacodyl (Bisacodyl 10 Mg Supp) 10 mg [place] DAILY PRN PRN Reason: Constipation Stop: 09/25/24 15:22 Last Admin: 08/29/24 15:40 Dose: 10 mg Clopidogrel Bisulfate (Clopidogrel Bisulfate 75 Mg Tab) 75 mg PO QA[facility] [place] Stop: 09/28/24 08:59 Last Admin: 08/31/24 08:41 Dose: 75 mg Collagenase (Collagenase Oint 30 Gm Tube) 1 appln EXT DAILY [facility] Stop: 09/26/24 14:44 Last Admin: 08/31/24 08:42 Dose: 1 appln Dextrose (Dextrose 50% 50 Ml Syringe) 25 - 50 ml IV UD PRN; Protocol PRN Reason: Hypoglycemia Protocol Stop: 09/25/24 14:18 Docusate Sodium (Docusate Sodium 100 Mg Cap) 100 mg PO BID [facility] Stop: 09/26/24 20:59 Last Admin: 08/31/24 08:47 Dose: 100 mg Ferrous Sulfate (Ferrous Sulfate 325 Mg Tab) 325 mg PO TIDM [facility] Stop: 09/25/24 16:59 Last Admin: 08/31/24 12:17 Dose: 325 mg Gabapentin (Gabapentin 300 Mg Cap) 600 mg PO HS [facility] Stop: 09/25/24 20:59 Last Admin: 08/30/24 21:06 Dose: 600 mg Gabapentin (Gabapentin 100 Mg Cap) 100 mg PO BID@0900,1400 [facility] Stop: 09/25/24 20:59 Last Admin: 08/31/24 08:40 Dose: 100 mg Glucagon (Glucagon For Inj 1 Mg Vial) 1 mg SQ UD PRN; Protocol PRN Reason: Hypoglycemia Protocol Stop: 09/25/24 14:18 Glucose (Glucose 40% Gel 15 Gm Tube) 15 - 30 gm PO UD PRN; Protocol PRN Reason: Hypoglycemia Protocol Stop: 09/25/24 14:18 Glucose (Glucose 10 Tab/Tube) 4 - 8 tab PO UD PRN; Protocol PRN Reason: Hypoglycemia Protocol Stop: 09/25/24 14:18 Hydrocortisone (Hydrocortisone Hc 2.5% Crm 30gm Tube) 1 appln EXT BID [facility] Stop: 09/25/24 20:59 Last Admin: 08/31/24 08:41 Dose: 1 appln Hydrocortisone (Hydrocortisone Acetate 25 Mg Supp) 25 mg [place] BID [facility] Stop: 09/27/24 20:59 Last Admin: 08/31/24 10:10 Dose: 25 mg Cefepime HCl (Maxipime 2000mg) 2,000 mg in 20 mls @ 5 mls/min IV Q8H [facility]; Protocol Stop: 09/05/24 18:59 Last Admin: 08/31/24 10:10 Dose: 5 mls/min Promethazine HCl (Phenergan) 6.25 mg in 50.25 mls @ 201 mls/hr IV Q6H PRN PRN Reason: Nausea And Vomiting Stop: 09/26/24 02:24 Last Infusion: 08/27/24 12:19 Dose: Infused Insulin Aspart (Insulin Aspart Per Unit Charge) 0 units SC DAILY@0730 [facility] Stop: 09/30/24 07:29 Last Admin: 08/31/24 08:51 Dose: 6 units Insulin Aspart (Insulin Aspart Per Unit Charge) 0 units SC 1130,1630,2100 [facility] Stop: 09/29/24 16:29 Last Admin: 08/30/24 20:58 Dose: Not Given Insulin Glargine (Lantus Per Unit Charge) 8 units SC [facility] Stop: 09/29/24 20:59 Last Admin: 08/30/24 21:04 Dose: 8 units Lactobacillus Acidophilus (Advanced Probiotic 625 Mg Capsule) 1,250 mg PO DAILY [facility] Stop: 09/25/24 14:14 Last Admin: 08/31/24 08:40 Dose: 1,250 mg Levothyroxine Sodium (Levothyroxine Sodium 25 Mcg Tablet) [facility]: 09/26/24 06:29 Last Admin: 08/31/24 05:38 Dose: 25 mcg Lidocaine HCl (Lidocaine 2% Jelly 5 Ml Tube) 5 ml EXT BID [facility] Stop: 09/25/24 18:14 Last Admin: 08/31/24 08:43 Dose: 5 ml Melatonin (Melatonin 3 Mg Tab) 6 mg PO HS [facility] Stop: 09/25/24 20:59 Last Admin: 08/30/24 21:04 Dose: 6 mg Miscellaneous (Carbohydrates For Hypoglycemia ) 15 - 30 gm PO UD PRN PRN Reason: Hypoglycemia Protocol Stop: 09/25/24 14:18 Miscellaneous (Colesevelam [Welchol] 625 Mg Tablet)--Order Awaiting Action) 1 each N/A QS [facility] Stop: 09/25/24 15:59 Last Admin: 08/31/24 08:46 Dose: Not Given Miscellaneous Information (Pharmacy Glycemic Mgmt Consult) 1 each N/A UD PRN PRN Reason: Consult Stop: 09/25/24 14:18 Morphine Sulfate (Morphine Sulfate 4 Mg/Ml 1 Ml Carp\Vial) 4 mg IV Q6H PRN PRN Reason: severe pain Stop: 09/09/24 15:29 Last Admin: 08/28/24 17:13 Dose: 4 mg Oxycodone HCl (Oxycodone Hcl Ir 5 Mg Tab (Immediate Release)) 5 mg PO BID PRN PRN Reason: Pain, Severe Stop: 09/09/24 15:22 Last Admin: 08/28/24 02:08 Dose: 5 mg Pantoprazole Sodium (Pantoprazole 40 Mg Tab) 40 mg PO DAILYBB [facility] Stop: 09/26/24 06:29 Last Admin: 08/31/24 05:37 Dose: 40 mg Polyethylene Glycol (Polyethylene (Miralax) 17 Gm Pack) 17 gm PO QDL PRN PRN Reason: Constipation Stop: 09/25/24 15:22 Senna/Docusate Sodium (Docusate Sodium/Senna 50/8.6mg Tab) 2 tab PO QDL PRN PRN Reason: Constipation Stop: 09/25/24 15:22 Sennosides (Senna 8.6 Mg Tab) 8.6 mg PO BID [facility] Stop: 09/25/24 20:59 Last Admin: 08/31/24 08:44 Dose: 8.6 mg Tamsulosin HCl (Tamsulosin Hcl 0.4 Mg Cap) 0.4 mg PO HS [facility] Stop: 09/25/24 20:59 Last Admin: 08/30/24 21:06 Dose: 0.4 mg
--- NOTE | 2024-09-01 12:39 | Hospitalist Progress Note ---
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 Hematuria, recurrent Indwelling Ware catheter History of prostatic varicosities Acute Prostatitis, Possible Emphysematous Cystitis In setting of dual antiplatelet therapy for PAD --S/P Cystoscopy with Cystolitholapaxy, Clot evacuation, Fulguration of bleeding prostatic Varicosities, and fulguration of bladder neck by on 08/10/24 --CT ABD Findings consistent with emphysematous cystitis. Likely clot within the urinary bladder. Possible prostatitis. Possible superficial soft tissue wound at the right inguinal region. No other acute findings seen. Otherwise as described. --Blood culture: Negative --Urine culture: Is growing Jyoti glabrata, awaiting sensitivity -- Continue empiric IV cefepime --Hold aspirin, Plavix secondary to hematuria --Hemoglobin remains stable at 9.1 --Bladder irrigation has been discontinued -- Appreciate urology -Clinically much better with clearance of hematuria and will ask urologist when aspirin and Plavix can be restarted Has been tolerating aspirin and Plavix without any evidence of bleeding Has had PT evaluation and recommended rehab No more hematuria and does not have any urinary symptoms Has been on intravenous cefepime which will be discontinued tomorrow and awaiting sensitivity testing for the Jyoti Glabrata in the urine without any symptoms Infectious disease has been consulted for guidance of therapy Denies any fever and chills and no urinary symptoms Awaiting placement and also ID evaluation Denies any symptoms though urine was noted to be slightly reduced today and will be observed Awaiting ID evaluation and likely discharge tomorrow if the patient is sorted ou t and no more hematuria Constipation with pain due to hemorrhoids Continue bowel regimen Will check KUB tomorrow Will give Anusol HC suppository twice daily on top of cream Denies any more rectal pain today Denies any more rectal pain Right groin wound,Peripheral Artery Disease, right common femoral to PT bypass with non-reversed GSV on 06/28, s/p Debridements Right Foot Wound,Right foot osteomyelitis, s/p right TMA wound debridement 07/02, s/p 6 weeks IV Ertapenem Sacral 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 Appreciate podiatry input hold aspirin and Plavix in light of hematuria Continue Lipitor Continue with the wound care as advised Continue dressing as advised by the wound care patient's Pressure ulcer of sacral region, at least Stage 2, POA Turn and reposition q2hr Continue wound care DM II Insulin regimen per protocol Pharmacy Glycemic consult Monitor blood glucose levels Hypertension Continue [employer] 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 Monitor blood pressure H/O CVA hold aspirin, Plavix due to hematuria continue statin Hyperlipidemia Continue atorvastatin and colesevelam Hypothyroidism Continue levothyroxine GERD Continue pantoprazole BPH Continue tamsulosin DVT prophylaxis Lovenox/heparin contraindicated in light of hematuria SCDs contraindicated in light of PAD Code Status Full code Disposition PT OT prior to discharge- recommended rehab Awaiting approval from the rehab facility Admission and Anticipated Discharge Date Admission Date: August 26, 2024 Subjective 08/28/2024 Patient was seen and examined in medical telemetry unit He has been complaining of pain in the rectum secondary to hemorrhoids and the current medicine is not helping His hematuria has been improving and almost cleared Denies any other significant symptoms 08/29/2024 The patient was seen and examined in medical telemetry unit He has been doing much better and there is no more hematuria His groin and foot wounds are being taken care of Awaiting final sensitivity for UTI 08/30/2024 The patient was seen and examined in medical telemetry unit in presence of his son He has been feeling much better and wants to be No more hematuria and no UTI symptoms Awaiting placement 08/31/2024 The patient was seen and examined in medical telemetry unit He has been stable and awaiting rehab Denies any urinary symptoms and the rectal pain is relieved. 09/01/2024 The patient was seen and examined in medical telemetry unit He has been stable denies any significant symptoms His hematuria seems to be acting up again with very faint redness of the urine Review of Systems Review of Systems: All systems reviewed and are unremarkable except as noted below Physical Exam Physical Exam: Sitting on a chair without any acute distress Constitutional: well developed, well nourished, + ill appearing and average body habitus Eyes: PERRL, conjunctivae normal, anicteric sclerae ENMT: external ear and nose normal, oropharynx normal Neck: trachea midline, no thyromegaly Respiratory: no respiratory distress Auscultation: lungs clear to auscultation bilaterally Cardiovascular: Rate/Rhythm: regular rate and regular rhythm; not tachycardic Heart Sounds: normal S1 and normal S2; no murmur Extremities: no edema Gastrointestinal (Abdomen): Inspection/Auscultation: normal bowel sounds; abdomen not distended Percussion/Palpation: abdomen soft; abdomen nontender Neurologic: normal touch/pain/proprioception and moves all extremities; no focal motor deficits Psychiatric: A+Ox3, euthymic affect Lymphatic: no cervical or axillary lymphadenopathy Results & Data Results & Data Vital Signs (Past 12 Hours) Vital Signs Temp Pulse Pulse Resp BP Pulse Ox O2 Del Method 09/01/24 11:31 36.7 C 97 H 18 132/83 98 Room Air 09/01/24 08:14 36.5 C 71 17 104/67 97 Room Air 09/01/24 07:26 Room Air 09/01/24 07:11 72 09/01/24 03:30 36.6 C 76 16 93/58 L 97 Room Air Medications Administered Current Inpatient Medications Acetaminophen (Acetaminophen 500 Mg Tab) 1,000 mg PO Q8H [facility] Stop: 09/25/24 13:44 Last Admin: 09/01/24 06:24 Dose: 1,000 mg Amlodipine Besylate ([facility]odipine Besylate 5 Mg Tab) [facility] [place]: 09/26/24 08:59 Last Admin: 09/01/24 08:47 Dose: 5 mg Aspirin (Aspirin 81 Mg Ectab) [facility] Stop: 09/27/24 15:14 Last Admin: 09/01/24 08:47 Dose: 81 mg Atorvastatin Calcium (Atorvastatin 40 Mg Tab) [facility] Stop: 09/26/24 08:59 Last Admin: 09/01/24 08:46 Dose: 40 mg Bisacodyl (Bisacodyl 10 Mg Supp) 10 mg DE DAILY PRN PRN Reason: Constipation Stop: 09/25/24 15:22 Last Admin: 08/29/24 15:40 Dose: 10 mg Clopidogrel Bisulfate (Clopidogrel Bisulfate 75 Mg Tab) 75 mg PO QAM [facility] Stop: 09/28/24 08:59 Last Admin: 09/01/24 08:48 Dose: 75 mg Collagenase (Collagenase Oint 30 Gm Tube) 1 appln EXT DAILY [facility] Stop: 09/26/24 14:44 Last Admin: 09/01/24 08:45 Dose: 1 appln Dextrose (Dextrose 50% 50 Ml Syringe) 25 - 50 ml IV UD PRN; Protocol PRN Reason: Hypoglycemia Protocol Stop: 09/25/24 14:18 Docusate Sodium (Docusate Sodium 100 Mg Cap) 100 mg PO BID [facility] Stop: 09/26/24 20:59 Last Admin: 09/01/24 09:38 Dose: 100 mg Ferrous Sulfate (Ferrous Sulfate 325 Mg Tab) 325 mg PO TIDM [facility] Stop: 09/25/24 16:59 Last Admin: 09/01/24 08:46 Dose: 325 mg Gabapentin (Gabapentin 300 Mg Cap) 600 mg PO HS [facility] Stop: 09/25/24 20:59 Last Admin: 08/31/24 19:56 Dose: 600 mg Gabapentin (Gabapentin 100 Mg Cap) 100 mg PO BID@0900,1400 [facility] Stop: 09/25/24 20:59 Last Admin: 09/01/24 08:46 Dose: 100 mg Glucagon (Glucagon For Inj 1 Mg Vial) 1 mg SQ UD PRN; Protocol PRN Reason: Hypoglycemia Protocol Stop: 09/25/24 14:18 Glucose (Glucose 40% Gel 15 Gm Tube) 15 - 30 gm PO UD PRN; Protocol PRN Reason: Hypoglycemia Protocol Stop: 09/25/24 14:18 Glucose (Glucose 10 Tab/Tube) 4 - 8 tab PO UD PRN; Protocol PRN Reason: Hypoglycemia Protocol Stop: 09/25/24 14:18 Hydrocortisone (Hydrocortisone Hc 2.5% Crm 30gm Tube) 1 appln EXT BID [facility] Stop: 09/25/24 20:59 Last Admin: 09/01/24 08:45 Dose: 1 appln Hydrocortisone (Hydrocortisone Acetate 25 Mg Supp) 25 mg DE BID [facility] Stop: 09/27/24 20:59 Last Admin: 09/01/24 09:38 Dose: 25 mg Cefepime HCl (Maxipime 2000mg) 2,000 mg in 20 mls @ 5 mls/min IV Q8H [facility]; Protocol Stop: 09/05/24 18:59 Last Admin: 09/01/24 12:02 Dose: 5 mls/min Promethazine HCl (Phenergan) 6.25 mg in 50.25 mls @ 201 mls/hr IV Q6H PRN PRN Reason: Nausea And Vomiting Stop: 09/26/24 02:24 Last Infusion: 08/27/24 12:19 Dose: Infused Insulin Aspart (Insulin Aspart Per Unit Charge) 0 units SC 0730,1130,1630,2100 [facility] Stop: 10/01/24 12:44 Insulin Glargine (Lantus Per Unit Charge) 8 units SC [facility] Stop: 09/29/24 20:59 Last Admin: 08/31/24 20:50 Dose: 8 units Lactobacillus Acidophilus (Advanced Probiotic 625 Mg Capsule) 1,250 mg PO DAILY [facility] Stop: 09/25/24 14:14 Last Admin: 09/01/24 08:46 Dose: 1,250 mg Levothyroxine Sodium (Levothyroxine Sodium 25 Mcg Tablet) [facility] Stop: 09/26/24 06:29 Last Admin: 09/01/24 06:24 Dose: 25 mcg Lidocaine HCl (Lidocaine 2% Jelly 5 Ml Tube) 5 ml EXT BID [facility] Stop: 09/25/24 18:14 Last Admin: 09/01/24 08:45 Dose: 5 ml Melatonin (Melatonin 3 Mg Tab) 6 mg PO [facility] Stop: 09/25/24 20:59 Last Admin: 08/31/24 19:54 Dose: 6 mg Miscellaneous (Carbohydrates For Hypoglycemia ) 15 - 30 gm PO UD PRN PRN Reason: Hypoglycemia Protocol Stop: 09/25/24 14:18 Miscellaneous (Colesevelam [Welchol] 625 Mg Tablet)--Order Awaiting Action) 1 each N/A QS [facility] Stop: 09/25/24 15:59 Last Admin: 09/01/24 08:44 Dose: Not Given Miscellaneous Information (Pharmacy Glycemic Mgmt Consult) 1 each N/A UD PRN PRN Reason: Consult Stop: 09/25/24 14:18 Morphine Sulfate (Morphine Sulfate 4 Mg/Ml 1 Ml Carp\Vial) 4 mg IV Q6H PRN PRN Reason: severe pain Stop: 09/09/24 15:29 Last Admin: 08/28/24 17:13 Dose: 4 mg Oxycodone HCl (Oxycodone Hcl Ir 5 Mg Tab (Immediate Release)) 5 mg PO BID PRN PRN Reason: Pain, Severe Stop: 09/09/24 15:22 Last Admin: 08/28/24 02:08 Dose: 5 mg Pantoprazole Sodium (Pantoprazole 40 Mg Tab) 40 mg PO DAILYBB [facility] Stop: 09/26/24 06:29 Last Admin: 09/01/24 06:24 Dose: 40 mg Polyethylene Glycol (Polyethylene (Miralax) 17 Gm Pack) 17 gm PO QDL PRN PRN Reason: Constipation Stop: 09/25/24 15:22 Senna/Docusate Sodium (Docusate Sodium/Senna 50/8.6mg Tab) 2 tab PO QDL PRN PRN Reason: Constipation Stop: 09/25/24 15:22 Sennosides (Senna 8.6 Mg Tab) 8.6 mg PO BID [facility] Stop: 09/25/24 20:59 Last Admin: 09/01/24 09:38 Dose: 8.6 mg Tamsulosin HCl (Tamsulosin Hcl 0.4 Mg Cap) 0.4 mg PO HS [facility] Stop: 09/25/24 20:59 Last Admin: 08/31/24 19:56 Dose: 0.4 mg
[2024-09-01] MEDS: INSULIN ASPART PER UNIT CHARGE SC SCH (12:56)
[2024-09-01] MEDS ORDERED: INSULIN ASPART PER UNIT CHARGE SC SCH (16:30)
[2024-09-02 09:00] LABS: Hematocrit (blood only) 32.5 % (42.0-52.0); Hemoglobin 10.1 g/dl (14.0-18.0); Immature Granulocytes # (auto) 0.14 K/uL (0.01-0.20); Immature Granulocytes % (auto) 1.1 %; Mean Corpuscular Hemoglobin 27.0 pg (25.0-34.0); Mean Corpuscular Volume 86.9 fL (80.0-100.0); Platelet Count 486 K/uL (130-400); RDW Standard Deviation 50.6 fL (36.4-46.3); Red Blood Count 3.74 M/uL (4.70-6.10); White Blood Count 13.10 K/ul (4.8-10.8)
[2024-09-02 09:17] LABS: Anion Gap 4 (3-11); Blood Urea Nitrogen 20 mg/dl (6-23); Calcium 8.8 mg/dl (8.6-10.3); Carbon Dioxide 28 mmol/L (21-32); Chloride 105 mmol/L (98-107); Creatinine Clr Calc Pharmacy 130.7 ml/min; Glucose 156 mg/dl (70-99(Fasting)); Sodium 137 mmol/L (136-145)
--- NOTE | 2024-09-02 10:55 | Pharmacy Report ---
Pharmacy Glycemic Short Note 2 - Date of Service September 02, 2024 - Glycemic Short BSG Results (Last 24 hours): 09/01/24 09/01/24 09/01/24 12:01 16:57 20:26 Glucose POC Glucose 179 H 258 H 279 H 09/02/24 09/02/24 07:59 08:48 Glucose 156 H POC Glucose 124 H OUTPATIENT ANTIDIABETIC REGIMEN: * insulin aspart sliding scale * Jardiance 25mg po daily * glimepiride 2mg po bid * metformin ER 1000mg po daily HbA1c: 5.6% on 08/10/24 ASSESSMENT: 09/02 * Reji received 49 units of insulin yesterday (8 were basal) * Fasting BSG this AM within goal range, continue current basal regimen. * BSGs trend up throughout the day, suggests need for tighter carbohydrate coverage. Will tighten carb ratio, but he appears to correct well so will not adjust correction factor. * He continue on cefepime. 08/30 * Reji received 23 units of insulin yesterday (5 units of Lantus) * Fasting BSG of 174 mg/dL. Last evening patient received first dose of basal insulin, despite this fasting trending upward (highest its been this admission). Will conservatively titrate up the basal dose for this evening. * Post prandial BSGs are acceptable. Lunch tends to be the highest BSG of the day. Will tighten carb coverage with breakfast to see if this helps avoid lunchtime hyperglycemia. 08/28 * Reji received 6 units of insulin yesterday (all were bolus). BSGs were [phone]/dL. * Fasting BSG was in goal range this morning. CF was tightened yesterday so will continue the bolus insulin regimen. Will also continue Lantus scale (0, 5 or 10 units depending on BSG). 08/26 * Reji is a 74 year old male who was admitted today for gross hematuria. Pharmacy was consulted for glycemic management while he is admitted. * BSG from blood draw this morning was 296mg/dL. (no further readings since then) Patient is not yet ordered a diet. A weight based bolus insulin regimen with a stress of 2 was ordered to start now and a Lantus scale was added for HS (0,5, or 10 units depending on BSG). PLAN FOR INPATIENT GLYCEMIC CONTROL: * Hold outpatient diabetes medications * Basal insulin * Lantus 8 units SC HS * Bolus insulin * NovoLog per scale ACHS or Q6hrs while NPO * Goal Range: Low 120 mg/dL - High 160 mg/dL * Correction Factor: 25 mg/dL/unit * Nutritional / Prandial insulin per carb ratio of 1 unit per 5 grams CHO consumed
--- NOTE | 2024-09-02 17:45 | Hospitalist Progress Note ---
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 Hematuria, recurrent Indwelling Ware catheter History of prostatic varicosities Acute Prostatitis, Possible Emphysematous Cystitis In setting of dual antiplatelet therapy for PAD --S/P Cystoscopy with Cystolitholapaxy, Clot evacuation, Fulguration of bleeding prostatic Varicosities, and fulguration of bladder neck by on 08/10/24 --CT ABD Findings consistent with emphysematous cystitis. Likely clot within the urinary bladder. Possible prostatitis. Possible superficial soft tissue wound at the right inguinal region. No other acute findings seen. Otherwise as described. --Blood culture: Negative --Urine culture: Is growing Jyoti glabrata, awaiting sensitivity -- Continue empiric IV cefepime --Hold aspirin, Plavix secondary to hematuria --Hemoglobin remains stable at 9.1 --Bladder irrigation has been discontinued -- Appreciate urology -Clinically much better with clearance of hematuria and will ask urologist when aspirin and Plavix can be restarted Has been tolerating aspirin and Plavix without any evidence of bleeding Has had PT evaluation and recommended rehab No more hematuria and does not have any urinary symptoms Has been on intravenous cefepime which will be discontinued tomorrow and awaiting sensitivity testing for the Jyoti Glabrata in the urine without any symptoms Infectious disease has been consulted for guidance of therapy Denies any fever and chills and no urinary symptoms Awaiting placement and also ID evaluation Denies any symptoms though urine was noted to be slightly reduced today and will be observed Awaiting ID evaluation and likely discharge tomorrow if the patient is sorted ou t and no more hematuria Remains medically stable with resolution of hematuria Still getting intravenous cefepime for prostatitis/cystitis which can be stopped as the course is done Awaiting ID evaluation for a need for antifungal with urine culture growing Jyoti glabrata Constipation with pain due to hemorrhoids Continue bowel regimen Will check KUB tomorrow Will give Anusol HC suppository twice daily on top of cream Denies any more rectal pain today Denies any more rectal pain Right groin wound,Peripheral Artery Disease, right common femoral to PT bypass with non-reversed GSV on 06/28, s/p Debridements Right Foot Wound,Right foot osteomyelitis, s/p right TMA wound debridement 07/02, s/p 6 weeks IV Ertapenem Sacral 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 consult inside upholsterer Appreciate podiatry input hold aspirin and Plavix in light of hematuria Continue Lipitor Continue with the wound care as advised Continue dressing as advised by the wound care patient's Pressure ulcer of sacral region, at least Stage 2, POA Turn and reposition q2hr Continue wound care DM II Insulin regimen per protocol Pharmacy Glycemic consult Monitor blood glucose levels Hypertension Continue [employer] 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 Monitor blood pressure H/O CVA hold aspirin, Plavix due to hematuria continue statin Hyperlipidemia Continue atorvastatin and colesevelam Hypothyroidism Continue levothyroxine GERD Continue pantoprazole BPH Continue tamsulosin DVT prophylaxis Lovenox/heparin contraindicated in light of hematuria SCDs contraindicated in light of PAD Code Status Full code Disposition PT OT prior to discharge- recommended rehab Awaiting to go to [facility]-approved Admission and Anticipated Discharge Date Admission Date: August 26, 2024 Subjective 08/28/2024 Patient was seen and examined in medical telemetry unit He has been complaining of pain in the rectum secondary to hemorrhoids and the current medicine is not helping His hematuria has been improving and almost cleared Denies any other significant symptoms 08/29/2024 The patient was seen and examined in medical telemetry unit He has been doing much better and there is no more hematuria His groin and foot wounds are being taken care of Awaiting final sensitivity for UTI 08/30/2024 The patient was seen and examined in medical telemetry unit in presence of his son He has been feeling much better and wants to be No more hematuria and no UTI symptoms Awaiting placement 08/31/2024 The patient was seen and examined in medical telemetry unit He has been stable and awaiting rehab Denies any urinary symptoms and the rectal pain is relieved. 09/01/2024 The patient was seen and examined in medical telemetry unit He has been stable denies any significant symptoms His hematuria seems to be acting up again with very faint redness of the urine 09/02/2024 The patient was seen and examined in medical telemetry unit He has been stable and awaiting ID evaluation before discharge Hematuria is resolved Review of Systems Review of Systems: All systems reviewed and are unremarkable except as noted below Physical Exam Physical Exam: Sitting on a chair without any acute distress Constitutional: well developed, well nourished, + ill appearing and average body habitus Eyes: PERRL, conjunctivae normal, anicteric sclerae ENMT: external ear and nose normal, oropharynx normal Neck: trachea midline, no thyromegaly Respiratory: no respiratory distress Auscultation: lungs clear to auscultation bilaterally Cardiovascular: Rate/Rhythm: regular rate and regular rhythm; not tachycardic Heart Sounds: normal S1 and normal S2; no murmur Extremities: no edema Gastrointestinal (Abdomen): Inspection/Auscultation: normal bowel sounds; abdomen not distended Percussion/Palpation: abdomen soft; abdomen nontender Neurologic: normal touch/pain/proprioception and moves all extremities; no focal motor deficits Psychiatric: A+Ox3, euthymic affect Lymphatic: no cervical or axillary lymphadenopathy Results & Data Results & Data Vital Signs (Past 12 Hours) Vital Signs Temp Pulse Pulse Resp BP Pulse Ox O2 Del Method 09/02/24 16:05 36.6 C 69 20 123/66 92 Room Air 09/02/24 15:58 96 H 09/02/24 12:09 36.9 C 95 H 16 124/84 95 Room Air 09/02/24 08:07 36.8 C 69 20 143/64 H 99 Room Air 09/02/24 07:50 Room Air 09/02/24 07:04 76 Laboratory Results Short CBC 09/02/24 Range/Units 08:48 WBC 13.10 H (4.8-10.8) K/ul Hgb 10.1 L (14.0-18.0) g/dl Hct 32.5 L (42.0-52.0) % Plt Count 486 H (130-400) K/uL BMP 09/02/24 09/02/24 08:48 09:32 Sodium 137 Potassium TNP 3.8 Chloride 105 Carbon Dioxide 28 BUN 20 Creatinine 0.52 L Glucose 156 H Calcium 8.8 Medications Administered Current Inpatient Medications Acetaminophen (Acetaminophen 500 Mg Tab) 1,000 mg PO Q8H [facility] Stop: 09/25/24 13:44 Last Admin: 09/02/24 13:56 Dose: Not Given Amlodipine Besylate (Amlodipine Besylate 5 Mg Tab) [facility] [place] Stop: 09/26/24 08:59 Last Admin: 09/02/24 08:22 Dose: 5 mg Aspirin (Aspirin 81 Mg Ectab) 81 mg [facility] [place] Stop: 09/27/24 15:14 Last Admin: 09/02/24 08:22 Dose: 81 mg Atorvastatin Calcium (Atorvastatin 40 Mg Tab) 40 [facility] [place] Stop: 09/26/24 08:59 Last Admin: 09/02/24 08:22 Dose: 40 mg Bisacodyl (Bisacodyl 10 Mg Supp) 10 mg MT DAILY PRN PRN Reason: Constipation Stop: 09/25/24 15:22 Last Admin: 08/29/24 15:40 Dose: 10 mg Clopidogrel Bisulfate (Clopidogrel Bisulfate 75 Mg Tab) 75 mg PO QAM [facility] Stop: 09/28/24 08:59 Last Admin: 09/02/24 08:22 Dose: 75 mg Colesevelam HCl (Colesevelam Hcl) 1 each PO BIDM [facility] Stop: 10/02/24 16:59 Collagenase (Collagenase Oint 30 Gm Tube) 1 appln EXT DAILY [facility] Stop: 09/26/24 14:44 Last Admin: 09/02/24 08:21 Dose: 1 appln Dextrose (Dextrose 50% 50 Ml Syringe) 25 - 50 ml IV UD PRN; Protocol PRN Reason: Hypoglycemia Protocol Stop: 09/25/24 14:18 Docusate Sodium (Docusate Sodium 100 Mg Cap) 100 mg PO BID [facility] Stop: 09/26/24 20:59 Last Admin: 09/02/24 08:25 Dose: 100 mg Ferrous Sulfate (Ferrous Sulfate 325 Mg Tab) 325 mg PO TIDM [facility] Stop: 09/25/24 16:59 Last Admin: 09/02/24 12:45 Dose: 325 mg Gabapentin (Gabapentin 300 Mg Cap) 600 mg PO HS [facility] Stop: 09/25/24 20:59 Last Admin: 09/01/24 20:40 Dose: 600 mg Gabapentin (Gabapentin 100 Mg Cap) 100 mg PO BID@0900,1400 [facility] Stop: 09/25/24 20:59 Last Admin: 09/02/24 14:51 Dose: 100 mg Glucagon (Glucagon For Inj 1 Mg Vial) 1 mg SQ UD PRN; Protocol PRN Reason: Hypoglycemia Protocol Stop: 09/25/24 14:18 Glucose (Glucose 40% Gel 15 Gm Tube) 15 - 30 gm PO UD PRN; Protocol PRN Reason: Hypoglycemia Protocol Stop: 09/25/24 14:18 Glucose (Glucose 10 Tab/Tube) 4 - 8 tab PO UD PRN; Protocol PRN Reason: Hypoglycemia Protocol Stop: 09/25/24 14:18 Hydrocortisone (Hydrocortisone Hc 2.5% Crm 30gm Tube) 1 appln EXT BID [facility] Stop: 09/25/24 20:59 Last Admin: 09/02/24 08:20 Dose: 1 appln Hydrocortisone (Hydrocortisone Acetate 25 Mg Supp) 25 mg MT BID [facility] Stop: 09/27/24 20:59 Last Admin: 09/02/24 11:03 Dose: 25 mg Cefepime HCl (Maxipime 2000mg) 2,000 mg in 20 mls @ 5 mls/min IV Q8H [facility]; Protocol Stop: 09/05/24 18:59 Last Admin: 09/02/24 10:59 Dose: 5 mls/min Promethazine HCl (Phenergan) 6.25 mg in 50.25 mls @ 201 mls/hr IV Q6H PRN PRN Reason: Nausea And Vomiting Stop: 09/26/24 02:24 Last Infusion: 08/27/24 12:19 Dose: Infused Insulin Aspart (Insulin Aspart Per Unit Charge) 0 units SC 0730,1130,1630,2100 [facility] Stop: 10/01/24 12:44 Last Admin: 09/02/24 12:46 Dose: 13 units Insulin Glargine (Lantus Per Unit Charge) 8 units SC HS [facility] Stop: 09/29/24 20:59 Last Admin: 09/01/24 20:39 Dose: 8 units Lactobacillus Acidophilus (Advanced Probiotic 625 Mg Capsule) 1,250 mg PO DAILY [facility] Stop: 09/25/24 14:14 Last Admin: 09/02/24 08:22 Dose: 1,250 mg Levothyroxine Sodium (Levothyroxine Sodium 25 Mcg Tablet) [facility] Stop: 09/26/24 06:29 Last Admin: 09/02/24 05:41 Dose: 25 mcg Lidocaine HCl (Lidocaine 2% Jelly 5 Ml Tube) 5 ml EXT BID [facility] Stop: 09/25/24 18:14 Last Admin: 09/02/24 08:20 Dose: 5 ml Melatonin (Melatonin 3 Mg Tab) 6 mg PO HS [facility] Stop: 09/25/24 20:59 Last Admin: 09/01/24 20:45 Dose: 6 mg Miscellaneous (Carbohydrates For Hypoglycemia ) 15 - 30 gm PO UD PRN PRN Reason: Hypoglycemia Protocol Stop: 09/25/24 14:18 Miscellaneous Information (Pharmacy Glycemic Mgmt Consult) 1 each N/A UD PRN PRN Reason: Consult Stop: 09/25/24 14:18 Morphine Sulfate (Morphine Sulfate 4 Mg/Ml 1 Ml Carp\Vial) 4 mg IV Q6H PRN PRN Reason: severe pain Stop: 09/09/24 15:29 Last Admin: 08/28/24 17:13 Dose: 4 mg Oxycodone HCl (Oxycodone Hcl Ir 5 Mg Tab (Immediate Release)) 5 mg PO BID PRN PRN Reason: Pain, Severe Stop: 09/09/24 15:22 Last Admin: 09/02/24 13:59 Dose: 5 mg Pantoprazole Sodium (Pantoprazole 40 Mg Tab) 40 mg PO DAILYBB [facility] Stop: 09/26/24 06:29 Last Admin: 09/02/24 05:41 Dose: 40 mg Polyethylene Glycol (Polyethylene (Miralax) 17 Gm Pack) 17 gm PO QDL PRN PRN Reason: Constipation Stop: 09/25/24 15:22 Senna/Docusate Sodium (Docusate Sodium/Senna 50/8.6mg Tab) 2 tab PO QDL PRN PRN Reason: Constipation Stop: 09/25/24 15:22 Sennosides (Senna 8.6 Mg Tab) 8.6 mg PO BID [facility] Stop: 09/25/24 20:59 Last Admin: 09/02/24 08:25 Dose: 8.6 mg Tamsulosin HCl (Tamsulosin Hcl 0.4 Mg Cap) 0.4 mg PO HS [facility] Stop: 09/25/24 20:59 Last Admin: 09/01/24 20:41 Dose: 0.4 mg
[2024-09-02] MEDS: COLESEVELAM HCL PO SCH (17:53)
--- NOTE | 2024-09-03 09:28 | Infectious Disease Consult ---
Date of Service September 03, 2024 Telehealth Information I performed this visit using a real-time telehealth connection between my location and the patients location ([facility]). After connecting through interactive tele-video, patient was identified by name and date of and/or wristband check.Patient (or authorized healthcare guest services representative) was informed that this was a telemedicine visit and it was being conducted confidentially over secure lines. My office door was closed and no one else was present in the room with me.Patient (or authorized healthcare guest services representative) provided consent to proceed with the visit, expressed an understanding of privacy and security of the telemedicine visit, and gave permission to have a hospital guest services representative in the room in order to assist with the visit and to conduct portions of the visit, as needed. I informed the patient (or authorized healthcare guest services representative) that I reviewed their record and presented the opportunity for them to ask any questions regarding the visit today. The patient agreed to participate. Recurrent UTI /Prostatitis,Jyoti Glabrata Assessment & Plan (1) Gross hematuria: Plan: resolved (2) Indwelling Farrar catheter present: Plan: recommend changing his farrar if it has not been changed recently (3) Emphysematous cystitis: Plan: Would only treat if symptomatic and requiring urologic procedure or if neutropenic Plan 74 y/o M s/p Cystoscopy with Cystolitholapaxy, Clot evacuation, Fulguration of bleeding prostatic Varicosities, and fulguration of bladder neck.He was evaluated by urology and is s/p CBI and his urine culture has grown jyoti glabrata and he is on cefepime .I would recommend discontinuing cefepime and starting high dose fluconazole (800MG PO Daily) pending susceptibilities for the jyoti glabrata and since there is concern for prostatitis would treat for 4 weeks with weekly LFTs.Thank you for allowing us to participate in the care of this patient ID will sign off History of Present Illness History of Present Illness 74 y/o M wheelchair bound male with PMHx type 2 diabetes, hyperlipidemia, diabetic retinopathy, peripheral artery disease, atherosclerosis, 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 Patient is approx 3 weeks s/p Cystoscopy with Cystolitholapaxy, Clot evacuation, Fulguration of bleeding prostatic Varicosities, and fulguration of bladder neck.He was evaluated by urology and is s/p CBI and his urine culture has grown jyoti glabrata and he is on cefepime 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--ALL VACCINES LAUNDRY DETERGENT AT Allergy Severe SEVERE Uncoded 08/26/24 11:16 [facility] Home Medications Medication Instructions Recorded Confirmed Type amlodipine 5 mg tablet 5 mg PO QAM 03/23/24 08/26/24 History liraglutide 0.6 mg/0.1 mL (18 mg/3 1.8 mg subcut QAM 03/23/24 08/26/24 History mL) subcutaneous pen injector metformin 500 mg tablet,extended 1,500 mg PO QAM 03/23/24 08/26/24 History release 24 hr oxycodone 5 mg tablet 5 mg PO BID PRN Pain, Severe 03/23/24 08/26/24 History acetaminophen 325 mg tablet 650 mg PO Q6H PRN Pain 08/08/24 08/26/24 History (Tylenol) atorvastatin 40 mg tablet 40 mg PO QAM 08/08/24 08/26/24 History bisacodyl 10 mg rectal suppository 10 mg TX DAILY PRN Constipation 08/08/24 08/26/24 History clopidogrel 75 mg tablet (Plavix) 75 mg PO QAM 08/08/24 08/26/24 History colesevelam 625 mg tablet (WelChol) 625 mg PO BIDM 08/08/24 08/26/24 History docusate sodium 100 mg capsule 100 mg PO BID PRN Constipation 08/08/24 08/26/24 History empagliflozin 25 mg tablet 25 mg PO QAM 08/08/24 08/26/24 History (Jardiance) ferrous sulfate 325 mg (65 mg 325 mg PO TIDM 08/08/24 08/26/24 History iron) tablet gabapentin 100 mg capsule 100 mg PO BID 08/08/24 08/26/24 History gabapentin 300 mg capsule 600 mg PO HS 08/08/24 08/26/24 History levothyroxine 25 mcg tablet 25 mcg PO DAILYBB 08/08/24 08/26/24 History lidocaine HCl 2 % topical gel 1 applic topical DIRECTED PRN 08/08/24 08/26/24 History APPLY TO PENIS NEEDED melatonin 3 mg tablet 6 mg PO HS 08/08/24 08/26/24 History pantoprazole 40 mg tablet,delayed 40 mg PO DAILYBB 08/08/24 08/26/24 History release sennosides 8.6 mg tablet (senna) 8.6 mg PO BID 08/08/24 08/26/24 History sennosides 8.6 mg-docusate sodium 2 tab-cap PO QDL PRN Constipation 08/08/24 08/26/24 History 50 mg tablet (Senna Plus) tamsulosin 0.4 mg capsule (Flomax) 0.4 mg PO HS 08/08/24 08/26/24 History acetaminophen 500 mg tablet 500 mg PO Q4H PRN Fever 08/26/24 08/26/24 History glimepiride 1 mg tablet 2 mg PO BID 08/26/24 08/26/24 History glucagon HCl 1 mg solution for 1 mg IM DIRECTED PRN 08/26/24 08/26/24 History injection (Glucagon (HCl) Hypoglycemia Emergency Kit) hydrocortisone 2.5 % topical cream 1 applic TX BID 08/26/24 08/26/24 History with perineal applicator (Proctosol HC) insulin aspart U-100 100 unit/mL 1 sliding scale dose subcut 08/26/24 08/26/24 History (3 mL) subcutaneous pen USEASDIRECTD loperamide 2 mg capsule 2 mg PO Q6H PRN Diarrhea 08/26/24 08/26/24 History ondansetron 4 mg disintegrating 4 mg PO Q6H PRN Nausea And Vomiting 08/26/24 08/26/24 History tablet polyethylene glycol 3350 17 17 g PO QDL PRN Constipation 08/26/24 08/26/24 History gram/dose oral powder (Miralax) sodium phosphates 19 gram-7 118 ml TX DAILY PRN Constipation 08/26/24 08/26/24 History gram/118 mL enema (Fleet Enema) Patient History Medical History Hypothyroidism 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 diabetes mellitus ICAO (internal carotid artery occlusion) bilateral Essential hypertension 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 Dyslipidemia Embolic stroke involving right middle cerebral artery Osteomyelitis of ankle or foot, right, acute Presence of IVC filter Seizure-like activity Type 2 diabetes mellitus Carotid artery disease Kidney stone Surgical History S/P IVC filter History of thrombectomy S/P debridement multiple 07/25/24 right groin incision 07/02/24, 05/16/24 S/P femoral-tibial bypass S/P tonsillectomy S/P total hip arthroplasty S/P cataract surgery 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 Family History Other Cancer Diabetes Heart disease Social History Smoking Status: Never smoker Hx Alcohol Use: No Hx Substance Use: No Preferred Language: Arabic Communication Ability: Effective Policy Change Clerks Supervisor Required: No Beliefs That Will Affect Care: None Current Living Situation: Rehab Current Living Situation Comment: patient currently at [facility] for rehab, normally lives with friend Seng Other Information That Helps Us Care for You: No Feels Safe at Home: Yes Safety Concerns: Feels Safe At This Time Assistive Devices: Walker Review of Systems Patient is hearing impaired Physical Exam Awake responds to simple commands Results & Data Vital Signs (Past 12 Hours) Vital Signs Temp Pulse Pulse Resp BP BP Pulse Ox 09/03/24 08:17 36.8 C 58 L 18 113/72 98 09/03/24 07:20 66 09/03/24 03:23 36.4 C L 67 16 121/78 98 09/03/24 00:05 36.4 C L 66 16 104/66 95 09/02/24 21:48 83 O2 Del Method 09/03/24 08:17 Room Air 09/03/24 07:20 09/03/24 03:23 Room Air 09/03/24 00:05 Room Air 09/02/24 21:48 Laboratory Results Urine Culture Preliminary 08/28/24-1155 Organism 1 Jyoti glabrata [place] Count >100,000 CFU/ml Sens Sensitivities to Follow Reference Lab Sent to Reference Lab for Sensitivities Diagnostic Findings IMPRESSION: 1. Findings consistent with emphysematous cystitis. 2. Likely clot within the urinary bladder. 3. Possible prostatitis. 4. Possible superficial soft tissue wound at the right inguinal region.
[2024-09-03] MEDS: DOCUSATE SODIUM/SENNA 50/8.6MG TAB PO PRN (09:48)
[2024-09-03] MEDS: POLYETHYLENE (MIRALAX) 17 GM PACK PO PRN (09:55)
[2024-09-03] MEDS ORDERED: ALUMINUM/MAGNESIUM/SIMETH (MAALOX MAX) 30 ML UDC PO PRN (11:18)
--- NOTE | 2024-09-03 13:48 | Hospitalist Progress Note ---
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 Hematuria, recurrent Indwelling Ware catheter History of prostatic varicosities Acute Prostatitis, Possible Emphysematous Cystitis In setting of dual antiplatelet therapy for PAD --S/P Cystoscopy with Cystolitholapaxy, Clot evacuation, Fulguration of bleeding prostatic Varicosities, and fulguration of bladder neck by on 08/10/24 --CT ABD Findings consistent with emphysematous cystitis. Likely clot within the urinary bladder. Possible prostatitis. Possible superficial soft tissue wound at the right inguinal region. No other acute findings seen. Otherwise as described. --Blood culture: Negative --Urine culture: Is growing Jyoti glabrata, awaiting sensitivity --Continuous bladder irrigation discontinued -- Continue empiric IV cefepime --Held aspirin, Plavix secondary to hematuria initially -- Appreciate urology --No recurrence of hematuria after resuming aspirin, Plavix PT evaluation recommended rehab Waiting for ID input Plan to discharge to rehab once ID recommendations available Constipation with pain due to hemorrhoids Continue bowel regimen --KUB: Prominent stool burden without obstruction. 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 Appreciate podiatry input Continue aspirin, Plavix, Lipitor Continue wound care Pressure ulcer of sacral region, at least Stage 2, POA Turn and reposition q2hr Continue wound care DM II Insulin regimen per protocol Pharmacy Glycemic consult Monitor blood glucose levels Hypertension 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 Monitor blood pressure H/O CVA hold aspirin, Plavix due to hematuria continue statin Hyperlipidemia Continue atorvastatin and colesevelam Hypothyroidism Continue levothyroxine GERD Continue pantoprazole BPH Continue tamsulosin DVT prophylaxis Lovenox/heparin contraindicated in light of hematuria SCDs contraindicated in light of PAD Code Status Full code Disposition Rehab as able Admission and Anticipated Discharge Date Admission Date: August 26, 2024 Subjective Patient is seen and examined at bedside States feeling slightly bloated No other complaints today Denies any chest pain, dyspnea, nausea, vomiting Review of Systems Review of Systems: All systems reviewed & are unremarkable except as noted in Subjective Physical Exam Physical Exam: Physical Exam: Vitals signs as noted above General Appearance:Moderately built and nourished, no apparent distress, chronic ill appearing Head: normocephalic, Atraumatic Eyes: normal inspection, EOMI Neck: supple, Trachea midline Respiratory/Chest: Normal breath sounds, CTA, No accessory muscle use Cardiovascular: S1, S2, No murmur Abdomen/GI:Soft, Non tender, Bowel sounds present Extremities/Musculoskeletal:normal inspection, no edema Neurologic/Psych:AAOX3, + Facial droop, minimal left sided weakness Skin: +R groin surgical wound, small sacral wound, R foot partial amputation, wound, Left great toe dry gangrenous, missing digits Results & Data Results & Data Vital Signs (Past 12 Hours) Vital Signs Temp Pulse Pulse Resp BP BP Pulse Ox 09/03/24 12:16 36.8 C 91 H 18 126/73 99 09/03/24 08:17 36.8 C 58 L 18 113/72 98 09/03/24 08:00 09/03/24 07:20 66 09/03/24 03:23 36.4 C L 67 16 121/78 98 O2 Del Method 09/03/24 12:16 Room Air 09/03/24 08:17 Room Air 09/03/24 08:00 Room Air 09/03/24 07:20 09/03/24 03:23 Room Air
[2024-09-03] MEDS: FLUCONAZOLE 100 MG TAB PO SCH (17:10)
[2024-09-04 07:31] VITALS: RESP 18
[2024-09-04 07:42] LABS: Anion Gap 6.0 (3-11); Blood Urea Nitrogen 19.0 mg/dl (6-23); Calcium 8.4 mg/dl (8.6-10.3); Carbon Dioxide 25.0 mmol/L (21-32); Chloride 106.0 mmol/L (98-107); Creatinine Clr Calc Pharmacy 154.5 ml/min; Glucose 111.0 mg/dl (70-99(Fasting)); Potassium 4.0 mmol/L (3.5-5.1); Sodium 137.0 mmol/L (136-145)
--- NOTE | 2024-09-04 08:22 | Pharmacy Report ---
Pharmacy Glycemic Short Note 2 - Date of Service September 04, 2024 - Glycemic Short BSG Results (Last 24 hours): 09/03/24 09/03/24 09/03/24 11:57 16:40 20:26 Glucose POC Glucose 183 H 125 H 120 H 09/04/24 09/04/24 05:17 07:56 Glucose 111 H POC Glucose 152 H OUTPATIENT ANTIDIABETIC REGIMEN: * insulin aspart sliding scale * Jardiance 25mg po daily * glimepiride 2mg po bid * metformin ER 1000mg po daily HbA1c: 5.6% on 08/10/24 ASSESSMENT: 09/04 * Reji received 43 units of insulin yesterday (8 were basal) * Fasting BSG this AM within goal range, will continue current basal regimen. * Slight adjustment to lower goal range to decrease the amount of carb coverage removed with BSGs below goal range. 09/02: * Reji received 49 units of insulin yesterday (8 were basal) * Fasting BSG this AM within goal range, continue current basal regimen. * BSGs trend up throughout the day, suggests need for tighter carbohydrate coverage. Will tighten carb ratio, but he appears to correct well so will not adjust correction factor. * He continue on cefepime. 08/30 * Reji received 23 units of insulin yesterday (5 units of Lantus) * Fasting BSG of 174 mg/dL. Last evening patient received first dose of basal insulin, despite this fasting trending upward (highest its been this admission). Will conservatively titrate up the basal dose for this evening. * Post prandial BSGs are acceptable. Lunch tends to be the highest BSG of the day. Will tighten carb coverage with breakfast to see if this helps avoid lunchtime hyperglycemia. 08/28 * Reji received 6 units of insulin yesterday (all were bolus). BSGs were [phone]/dL. * Fasting BSG was in goal range this morning. CF was tightened yesterday so will continue the bolus insulin regimen. Will also continue Lantus scale (0, 5 or 10 units depending on BSG). 08/26 * Reji is a 74 year old male who was admitted today for gross hematuria. Pharmacy was consulted for glycemic management while he is admitted. * BSG from blood draw this morning was 296mg/dL. (no further readings since then) Patient is not yet ordered a diet. A weight based bolus insulin regimen with a stress of 2 was ordered to start now and a Lantus scale was added for HS (0,5, or 10 units depending on BSG). PLAN FOR INPATIENT GLYCEMIC CONTROL: * Hold outpatient diabetes medications * Basal insulin * Lantus 8 units SC HS * Bolus insulin * NovoLog per scale ACHS or Q6hrs while NPO * Goal Range: Low 110 mg/dL - High 160 mg/dL * Correction Factor: 25 mg/dL/unit * Nutritional / Prandial insulin per carb ratio of 1 unit per 5 grams CHO consumed
[2024-09-04 11:19] VITALS: BP 132/82; PULSE 77; TEMP 98.2; O2SAT 99
--- NOTE | 2024-09-04 12:16 | Hospitalist Progress Note ---
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 Hematuria, recurrent Indwelling Ware catheter History of prostatic varicosities Acute Prostatitis, Possible Emphysematous Cystitis In setting of dual antiplatelet therapy for PAD --S/P Cystoscopy with Cystolitholapaxy, Clot evacuation, Fulguration of bleeding prostatic Varicosities, and fulguration of bladder neck by on 08/10/24 --CT ABD Findings consistent with emphysematous cystitis. Likely clot within the urinary bladder. Possible prostatitis. Possible superficial soft tissue wound at the right inguinal region. No other acute findings seen. Otherwise as described. --Blood culture: Negative --Urine culture: Is growing Jyoti glabrata, awaiting sensitivity --Continuous bladder irrigation discontinued -- Continue empiric IV cefepime --Held aspirin, Plavix secondary to hematuria initially -- Appreciate urology -- Aspirin, Plavix resumed, hemoglobin stable PT evaluation recommended rehab Appreciate ID input: Recommends Fluconazole 400 mg daily for 4 weeks. Needs LFTs weekly. Plan to discharge to rehab facility today Constipation with pain due to hemorrhoids Continue bowel regimen --KUB: Prominent stool burden without obstruction. 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 Monitor blood pressure H/O CVA hold aspirin, Plavix due to hematuria continue statin Hyperlipidemia Continue atorvastatin and colesevelam Hypothyroidism Continue levothyroxine GERD Continue pantoprazole BPH Continue tamsulosin DVT prophylaxis Lovenox/heparin contraindicated in light of hematuria SCDs contraindicated in light of PAD Code Status Full code Disposition Rehab Admission and Anticipated Discharge Date Admission Date: August 26, 2024 Subjective Patient is seen and examined at bedside Noted to have minimal dried blood at catheter site No new complaints today Eager to get discharged to rehab facility Denies any chest pain, dyspnea, nausea, vomiting Review of Systems Review of Systems: All systems reviewed & are unremarkable except as noted in Subjective Physical Exam Physical Exam: Physical Exam: Vitals signs as noted above General Appearance:Moderately built and nourished, no apparent distress, chronic ill appearing Head: normocephalic, Atraumatic Eyes: normal inspection, EOMI Neck: supple, Trachea midline Respiratory/Chest: Normal breath sounds, CTA, No accessory muscle use Cardiovascular: S1, S2, No murmur Abdomen/GI:Soft, Non tender, Bowel sounds present Extremities/Musculoskeletal:normal inspection, no edema Neurologic/Psych:AAOX3, + Facial droop, minimal left sided weakness Skin: +R groin surgical wound, small sacral wound, R foot partial amputation, wound, Left great toe dry gangrenous, missing digits Results & Data Results & Data Vital Signs (Past 12 Hours) Vital Signs Temp Pulse Pulse Resp BP Pulse Ox O2 Del Method 09/04/24 11:19 36.8 C 77 18 132/82 99 Room Air 09/04/24 07:30 37.7 C H 57 L 18 130/84 98 Room Air 09/04/24 07:23 62 09/04/24 03:15 36.4 C L 62 20 118/72 96 Room Air Laboratory Results [facility] 09/04/24 05:17 Sodium 137 Potassium 4.0 Chloride 106 Carbon Dioxide 25 BUN 19 Creatinine 0.44 L Glucose 111 H Calcium 8.4 L
--- NOTE | 2024-09-04 12:36 | Discharge Summary ---
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 History obtained from patient and his caregiver Seng at the bedside. Patient was recently admitted to [facility] [address] from August 08 to August 15, 2024 for hematuria, status post Cystoscopy with Cystolitholapaxy, Clot evacuation, Fulguration of bleeding prostatic Varicosities, and fulguration of bladder neck. Urine culture grew Jyoti and patient was treated with fluconazole. Patient also completed treatment of IV ertapenem for right foot infection.He was then discharged to [facility] for acute rehab. For the past 4 days, the patient has been having gross hematuria and staff at [facility] has been changing the Ware catheter multiple times as per caregiver. Today the hematuria progressed prompting the patient to be brought to the ER Upon arrival to the ER, patient's blood pressure 1136/97, heart rate 112, temperature 36.6, 100% on room air. UA suggestive Of UTI CT abdomen pelvis showing a possible emphysematous cystitis and prostatitis. Patient's Ware catheter was changed, continuous bladder irrigation initiated and patient was given ceftriaxone and ciprofloxacin. On exam, patient seen resting in bed, not in distress, having some discomfort over the penile urethra. He denies having abdominal pain, nausea vomiting, fevers or chills, chest pain, shortness of breath. Admission Exam Per Admitting Provider General- oriented x 3, not in distress, speaks in sentences with no effort or accessory muscle use Head- atraumatic Eyes- PERRL, EOMI, anicteric ENT- oropharynx clear Neck- supple, no JVD, no adenopathy, no thyromegaly; carotids +2/2, no bruits appreciated Lungs- clear to auscultation bilaterally, no rales/wheezes Heart- normal rate, regular rhythm; no murmur, no gallop, no rub appreciated Abdomen- normal bowel sounds, nondistended, soft, nontender, no masses or hepatosplenomegaly Right groin wound: Open wound with packing in place, granulation tissue, no signs of surrounding erythema or tenderness positive Ware catheter in place, penile exam essentially normal Extremities- no pretibial edema, no calf tenderness; peripheral pulses intact right lower extremity: Incision wound from bypass graft intact, healing well, no signs of infection right foot: Surgical wound on the dorsal aspect open, minimal yellow discharge but no signs of infection overall Left foot: Eschar on the dorsal aspect of the left great toe Neuro- alert, oriented x 3; CN 2-12 grossly intact; motor 5/5 bilaterally;sensation 100% on all extremities; no other gross focal neurologic deficits Skin- warm & dry Principal Diagnosis Complicated urinary tract infection Acute prostatitis Indwelling Ware catheter, recurrent hematuria secondary to prostatic varicosities Right groin wound Peripheral Artery Disease Discharge Data 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--ALL VACCINES LAUNDRY DETERGENT AT Allergy Severe SEVERE Uncoded 08/26/24 11:16 [facility] Consultations 08/26/24 11:47 ED Decision to Admit Stat 08/26/24 11:53 Consult Urology Routine 08/26/24 12:37 Consult Podiatry Routine 08/30/24 12:21 Consult Infectious Diseases Routine Procedures Performed Laboratory Results WBC 13.10 K/ul (4.8-10.8) H 09/02/24 08:48 RBC 3.74 M/uL (4.70-6.10) L 09/02/24 08:48 Hgb 10.1 g/dl (14.0-18.0) L 09/02/24 08:48 Hct 32.5 % (42.0-52.0) L 09/02/24 08:48 MCV 86.9 fL (80.0-100.0) 09/02/24 08:48 MCH 27.0 pg (25.0-34.0) 09/02/24 08:48 MCHC 31.1 g/dL (32.0-36.0) L 09/02/24 08:48 RDW Std Deviation 50.6 fL (36.4-46.3) H 09/02/24 08:48 RDW Coeff of Raymond 16.4 % (11.5-14.5) H 09/02/24 08:48 Plt Count 486 K/uL (130-400) H 09/02/24 08:48 MPV 10.0 fL (9.4-12.4) 09/02/24 08:48 Immature Gran % (Auto) 1.1 % 09/02/24 08:48 Neut % (Auto) 75.8 % 09/02/24 08:48 Lymph % (Auto) 13.7 % 09/02/24 08:48 Roberts % (Auto) 6.2 % 09/02/24 08:48 Eos % (Auto) 2.7 % 09/02/24 08:48 Baso % (Auto) 0.5 % 09/02/24 08:48 Neut # (Auto) 9.93 K/uL (1.40-6.50) H 09/02/24 08:48 Lymph # (Auto) 1.80 K/uL (1.20-3.40) 09/02/24 08:48 Roberts # (Auto) 0.81 K/uL (0.11-0.59) H 09/02/24 08:48 Eos # (Auto) 0.36 K/uL (0.00-0.50) 09/02/24 08:48 Baso # (Auto) 0.06 K/uL (0.00-0.20) 09/02/24 08:48 Immature Gran # (Auto) 0.14 K/uL (0.01-0.20) 09/02/24 08:48 Sodium 137 mmol/L (136-145) 09/04/24 05:17 Potassium 4.0 mmol/L (3.5-5.1) 09/04/24 05:17 Chloride 106 mmol/L (98-107) 09/04/24 05:17 Carbon Dioxide 25 mmol/L (21-32) 09/04/24 05:17 Anion Gap 6 (3-11) 09/04/24 05:17 BUN 19 mg/dl (6-23) 09/04/24 05:17 Creatinine 0.44 mg/dl (0.6-1.4) L 09/04/24 05:17 Est Cr Clr Drug Dosing 154.5 ml/min 09/04/24 05:17 eGFR 110.55 09/04/24 05:17 BUN/Creatinine Ratio 43.2 (10-20) H 09/04/24 05:17 Glucose 111 mg/dl (70-99(Fasting)) H 09/04/24 05:17 POC Glucose 121 mg/dl (70-99) H 09/04/24 11:37 Lactate 1.6 mmol/L (0.4-2.0) 08/26/24 11:45 Calcium 8.4 mg/dl (8.6-10.3) L 09/04/24 05:17 Magnesium 1.7 mg/dl (1.7-2.4) 08/28/24 07:41 Total Bilirubin 0.5 mg/dl (0.2-1.0) 08/27/24 06:27 AST 8 U/L (13-39) L 08/27/24 06:27 ALT 7 U/L (7-52) 08/27/24 06:27 Alkaline Phosphatase 76 U/L (34-104) 08/27/24 06:27 Total Protein 6.2 gm/dl (6.0-8.3) 08/27/24 06:27 Albumin 3.4 gm/dl (3.4-5.0) 08/27/24 06:27 Globulin 2.8 gm/dl (2.5-4.0) 08/27/24 06:27 Albumin/Globulin Ratio 1.2 (0.9-2) 08/27/24 06:27 Urine Color See Comment 08/26/24 10:00 Urine Appearance Cloudy (Clear) A 08/26/24 10:00 Urine pH Not Reportable 08/26/24 10:00 Ur Specific Green 1.035 (1.000-1.030) H 08/26/24 10:00 Urine Protein Not Reportable 08/26/24 10:00 Urine Glucose (UA) Not Reportable 08/26/24 10:00 Urine Ketones Not Reportable 08/26/24 10:00 Urine Blood Not Reportable 08/26/24 10:00 Urine Nitrite Not Reportable 08/26/24 10:00 Urine Bilirubin Not Reportable 08/26/24 10:00 Urine Urobilinogen Not Reportable 08/26/24 10:00 Ur Leukocyte Esterase Not Reportable 08/26/24 10:00 Urine RBC >20 /hpf (0-2) H 08/26/24 10:00 Urine WBC >50 /hpf (0-5) H 08/26/24 10:00 Ur Epithelial Cells 0-2 /hpf (0-2) 08/26/24 10:00 Urine Bacteria 1+ (None Seen) H 08/26/24 10:00 Urine Yeast Present (None Prsent) A 08/26/24 10:00 Urine Comment 08/26/24 10:00 Impressions Abdomen/Pelvis CT 08/26/24 10:[address] WITH IV CONTRAST CT DOSE: 1195.52 mGy.cm HISTORY: gross hematuria TECHNIQUE: Multiaxial CT images of the abdomen and pelvis were performed following the IV administration of 90 cc of Optiray, A dose lowering technique was utilized adhering to the principles of ALARA. COMPARISON STUDY: 08/09/2024 and 11/10/2022 FINDINGS: There are diffuse coronary artery calcifications. There are cardiac valvular calcifications. ABDOMEN: There are gallstones without evidence of acute cholecystitis. Liver, spleen, and adrenal glands are unremarkable. There is a 1.5 cm oval cystic finding at the pancreatic body, stable. Pancreas is otherwise unremarkable. There are a few stable cyst at the kidneys. There is no hydronephrosis. No renal or ureteral calculi. There are scattered atherosclerotic calcifications. No abdominal aortic aneurysm. Pelvis: Prostate is prominently enlarged and diffusely heterogeneous. There are stable prostate calcifications. Urinary bladder is mildly distended. There is diffuse wall thickening of the urinary bladder. There is small amount of gas within the urinary bladder and a small amount of gas within the anterior wall of the urinary bladder. There is a 4 cm area of lobulated increased density posteriorly and inferiorly within the urinary bladder which could represent clot. Stable mild prominence of the left seminal vesicle. There is mild sigmoid diverticulosis. No acute diverticulitis. No bowel inflammation or obstruction. No free fluid or free air. There is a possible superficial soft tissue wound at the right inguinal region with a stable mildly enlarged right inguinal lymph node versus other stable small soft tissue density. No fluid collection or abscess seen in the region. No enlarged adenopathy otherwise. Osseous structures: Stable right hip prosthesis. Stable few scattered sclerotic osseous foci at the pelvis. There are lumbar spine degenerative changes. IMPRESSION: 1. Findings consistent with emphysematous cystitis. 2. Likely clot within the urinary bladder. 3. Possible prostatitis. 4. Possible superficial soft tissue wound at the right inguinal region. 5. No other acute findings seen. Otherwise as described. ACT 112: Negative or not required by law. The above report was generated using voice recognition software. It may contain grammatical, syntax or spelling errors. Electronically signed by: Casey Anderson M.D. 08/26/2024 11:01 AM KUB X-Ray 08/28/24 07:00 KUB HISTORY: constipation COMPARISON STUDY: CT of the abdomen and pelvis dated 08/26/2024 FINDINGS: There is a prominent stool burden throughout a nondistended colon. There is no evidence of obstruction or impaction. There is a larger gallstone in right upper quadrant. Properitoneal fat lines are maintained. There is hardware in the right hip. There are degenerative changes in lumbar spine. There are 2 sclerotic lesions in the right ilium previously noted. IMPRESSION: Prominent stool burden without obstruction. ACT 112: Negative or not required by law. The above report was generated using voice recognition software. It may contain grammatical, syntax or spelling errors. Electronically signed by: Clemencia Dennison M.D. 08/28/2024 8:51 AM Ordered Studies 08/26/24 10:14 CT abd pelvis IV con only Stat Hospital Course (1) Hematuria: (2) Emphysematous cystitis: (3) Acute prostatitis: (4) Indwelling Ware catheter present: 74 year old wheelchair bound male with PMH significant for type 2 diabetes, hyperlipidemia, diabetic retinopathy, peripheral artery disease, atherosclerosis, history of embolic stroke involving right middle cerebral artery (Mar 2024), left-sided weakness, hypertension, hypothyroidism, bilateral internal carotid artery occlusions, mild to moderate aortic stenosis, urinary retention, chronic bilateral low back pain, GERD, BPH, constipation, 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 Hematuria, recurrent Indwelling Ware catheter History of prostatic varicosities Acute Prostatitis, Possible Emphysematous Cystitis In setting of dual antiplatelet therapy for PAD --S/P Cystoscopy with Cystolitholapaxy, Clot evacuation, Fulguration of bleeding prostatic Varicosities, and fulguration of bladder neck by on 08/10/24 --CT ABD Findings consistent with emphysematous cystitis. Likely clot within the urinary bladder. Possible prostatitis. Possible superficial soft tissue wound at the right inguinal region. No other acute findings seen. Otherwise as described. --Blood culture: Negative --Urine culture: Is growing Jyoti glabrata, awaiting sensitivity --Continuous bladder irrigation discontinued -- Continue empiric IV cefepime --Held aspirin, Plavix secondary to hematuria initially -- Appreciate urology -- Aspirin, Plavix resumed, hemoglobin stable PT evaluation recommended rehab Appreciate ID input: Recommends Fluconazole 800 mg daily for 4 weeks. Needs LFTs weekly. Plan to discharge to rehab facility today Constipation with pain due to hemorrhoids Continue bowel regimen --KUB: Prominent stool burden without obstruction. Continue bowel regimen Right groin wound,Peripheral Artery Disease, right common femoral to PT bypass with non-reversed GSV on 06/28, s/p Debridements Right Foot Wound,Right foot osteomyelitis, s/p right TMA wound debridement 07/02, s/p 6 weeks IV Ertapenem Sacral 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 consult automatic lathe tender Appreciate podiatry input Continue aspirin, Plavix, Lipitor Continue wound care Pressure ulcer of sacral region, at least Stage 2, POA Turn and reposition q2hr Continue wound care DM II Insulin regimen per protocol Pharmacy Glycemic consult Monitor blood glucose levels Hypertension Continue BILLIARD TABLE MECHANIC 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 Monitor blood pressure H/O CVA hold aspirin, Plavix due to hematuria continue statin Hyperlipidemia Continue atorvastatin and colesevelam Hypothyroidism Continue levothyroxine GERD Continue pantoprazole BPH Continue tamsulosin DVT prophylaxis Lovenox/heparin contraindicated in light of hematuria SCDs contraindicated in light of PAD Code Status Full code Disposition Rehab Total Time Total Time Spent Total Time Spent (In Minutes): 54 minutes Discharge Plan Discharge Items Patient Disposition: Transfer Inpatient Rehab Fac Reason For Visit: HEMATURIA, UTI Discharge Diagnosis: Complicated urinary tract infection Acute prostatitis Indwelling Ware catheter, recurrent hematuria secondary to prostatic varicosities Right groin wound Peripheral Artery Disease Condition on Discharge: Fair Activity: Per Instructions section Exercise/Sports: Gradually increase as tolerated Non-emergency contact: Primary Care Provider, Surgeon and Urologist Call non-emergency contact if: you have any medication questions, your symptoms worsen, your pain is concerning for you and you have a fever Follow-up/Referrals: Gabriele Dumas MD [Primary Care Provider] - () Diet: Carb Consistent or DM2 Diet Texture: Dental soft (bite-sized) Addtl Attending Provider Instructions: Follow-up with your primary care physician in 1 week upon discharge from rehab facility Follow-up with your urologist Dr Hughes in 1 week Follow-up with your vascular surgeon in 2-3 weeks as recommended --Continue Fluconazole 800 mg daily for 4 weeks as recommended by your infectious disease specialist. -- Get blood test(liver function tests) weekly while on fluconazole. --Continue wound care of right groin, sacral region while at rehab facility Seek immediate medical attention if your symptoms reoccur or worsen Please review medication list provided on discharge for any medication changes as instructed. Please call if you have any questions or problems. You can reach a [facility] hospitalist on duty at [facility] 24 hours a day by calling [phone] Pending Studies at Discharge: No Stand-Alone Forms: My [facility] Skilled Items Patient informed of condition?: Yes DNR: No Discharge Level of Care: Acute rehab Communicable Disease: No Discharge Prognosis: Stable Lines: None Urinary Catheter: Yes Medications and DC Order Prescriptions: New fluconazole 200 mg tablet 800 mg PO DAILY 26 Days Qty: 104 0RF Advanced Probiotic 625 mg (10 billion cell) Capsule 1 cap PO DAILY Qty: 10 0RF Santyl 250 unit/gram Ointment 1 applic EXT DAILY 7 Days Qty: 30 0RF Rx Instructions: Right Groin wound Continued loperamide 2 mg Capsule 2 mg PO Q6H PRN (Reason: Diarrhea) glimepiride 1 mg Tablet 2 mg PO BID Rx Instructions: Before Meals hydrocortisone [Proctosol HC] 2.5 % Cream With Perineal Applicator 1 applic HI BID Fleet Enema 19-7 gram/118 mL Enema 118 ml HI DAILY PRN (Reason: Constipation) ondansetron [Zofran ODT] 4 mg Tablet,Disintegrating 4 mg PO Q6H PRN (Reason: Nausea And Vomiting) insulin aspart U-100 100 unit/mL (3 mL) Insulin Pen 1 sliding scale dose SUBCUT USEASDIRECTD glucagon HCl [Glucagon (HCl) Emergency Kit] 1 mg Recon Soln 1 mg IM DIRECTED PRN (Reason: Hypoglycemia) polyethylene glycol 3350 [Miralax] 17 gram/dose powder 17 g PO QDL PRN (Reason: Constipation) aspirin 81 mg Tablet 81 mg PO DAILY amlodipine 5 mg tablet 5 mg PO QAM metformin 500 mg tablet extended release 24 hr 1,500 mg PO QAM oxycodone 5 mg tablet 5 mg PO BID PRN (Reason: Pain, Severe) liraglutide 0.6 mg/0.1 mL (18 mg/3 mL) pen injector 1.8 mg subcut QAM atorvastatin 40 mg tablet 40 mg PO QAM sennosides [senna] 8.6 mg Tablet 8.6 mg PO BID acetaminophen [Tylenol] 325 mg Tablet 650 mg PO Q6H PRN (Reason: Pain) sennosides-docusate sodium [Senna Plus] 8.6-50 mg Tablet 2 tab-cap PO QDL PRN (Reason: Constipation) melatonin 3 mg Tablet 6 mg PO HS clopidogrel [Plavix] 75 mg Tablet 75 mg PO QAM levothyroxine 25 mcg Tablet 25 mcg PO DAILYBB tamsulosin [Flomax] 0.4 mg Capsule 0.4 mg PO HS colesevelam [WelChol] 625 mg Tablet 625 mg PO BIDM bisacodyl 10 mg Suppository 10 mg HI DAILY PRN (Reason: Constipation) pantoprazole 40 mg Tablet,Delayed Release (Dr/Ec) 40 mg PO DAILYBB ferrous sulfate 325 mg (65 mg iron) Tablet 325 mg PO TIDM docusate sodium 100 mg Capsule 100 mg PO BID PRN (Reason: Constipation) gabapentin 300 mg Capsule 600 mg PO HS gabapentin 100 mg Capsule 100 mg PO BID Patient Comments: Give at 0900 and 1400 Rx Instructions: Give at 0900 and 1400 Jardiance 25 mg Tablet 25 mg PO QAM lidocaine HCl 2 % Gel 1 applic TOPICAL DIRECTED PRN (Reason: APPLY TO PENIS NEEDED) Discontinued acetaminophen 500 mg Tablet 500 mg PO Q4H PRN (Reason: Fever) Discharge Orders: Discharge Order (Routine); Ordered 09/04/24 Ordered By: Paul Kearney Admission Data Admit Date/Time: 08/26/24 11:51 Attending Provider: Paul Kearney Admit Provider: Wes Dempsey Primary Care Provider: Gabriele Dumas Other Providers: Wes Dempsey; Ortega Nichole; Julianna Aaron; Cornell Hughes; Anabella Machuca; Robin Purvis; Loren Callaway; Ap Hamilton; Asha Groves; Moustapha Marin; Ralph Nguyen; Ciro Andrade; Paul Kearney; Drake Muller; Nilson Ochoa; Candido Canales I.; Karan Moe II; Elena Tuttle; Jasiel Arizmendi; Reji Vaz; Jamila Hoyt
== END 2024-09-04 13:53 | DRG 300 ==
LOC: ED 09:20 → SUATTDRO 11:51 → EDINP 11:51 → 2N 15:23

== ENCOUNTER 2024-10-10 02:10 | Inpatient (IN) ==
[2024-10-10] MEDS ORDERED: LIDOCAINE 2% JELLY 5 ML TUBE EXT ONE ×2 (02:46→14:53)
[2024-10-10] MEDS ORDERED: LIDOCAINE 1% LOCAL 20 ML VIAL ONE (03:03)
[2024-10-10 04:00] LABS: Hematocrit (blood only) 42.4 % (42.0-52.0); Hemoglobin 13.4 g/dl (14.0-18.0); Mean Corpuscular Hemoglobin 26.2 pg (25.0-34.0); Mean Corpuscular Volume 82.8 fL (80.0-100.0); Platelet Count 400 K/uL (130-400); RDW Standard Deviation 49.5 fL (36.4-46.3); Red Blood Count 5.12 M/uL (4.70-6.10); White Blood Count 23.61 K/ul (4.8-10.8)
[2024-10-10 04:28] LABS: Immature Granulocytes # (auto) 0.13 K/uL (0.01-0.20); Immature Granulocytes % (auto) 0.6 %; Ovalocytes 1+
[2024-10-10 04:33] LABS: Anion Gap 13 (3-11); Blood Urea Nitrogen 19 mg/dl (6-23); Calcium 9.5 mg/dl (8.6-10.3); Carbon Dioxide 24 mmol/L (21-32); Chloride 101 mmol/L (98-107); Glucose 464 mg/dl (70-99(Fasting)); Potassium 3.6 mmol/L (3.5-5.1); Sodium 138 mmol/L (136-145)
--- NOTE | 2024-10-10 04:44 | Emergency Department Note ---
Impression & Plan Sepsis, Acute UTI, Acute urinary retention Patient evaluated by the [facility] for further inpatient care. ED Provider Note NAME: CORAL NDIAYE AGE: 74 SEX: Male INFORMANT: Patient ED PROVIDER(S): Jackie Galeana DO CHIEF COMPLAINT: Suprapubic abdominal pain and painful urination PLAN: Disposition: Patient will be admitted by the [facility] Hospitalist. MEDICAL DECISION MAKING: This is a 74-year-old male patient with an extensive past medical history who presents to the emergency department with suprapubic abdominal pain and severe pain upon urination. According to the patient's family, he has only been able to urinate a small amount with frequent episodes. History of previous episodes of urinary retention with Ware catheter placement. Bladder scan was obtained and showed greater than 300 mL of urine within the bladder. Nursing staff used lidocaine gel and placed a Ware catheter which drained a foul looking and smelling urine. A septic workup was performed. The patient was given IV morphine for pain and Zofran for nausea. He was prophylaxed with IV cefepime for significant leukocytosis. Patient had an elevated lactate. He was treated with 30 mL/kg of normal saline solution according to ideal body weight. Laboratory studies revealed a white blood cell count of 23.6. Hemoglobin was 13.4. Glucose was significantly elevated at 464. Renal function was normal. Procalcitonin was 0.15 and lactate was 3.6. Urinalysis revealed 3+ blood and 3+ glucose along with greater than 50 white blood cells and 2+ leukocyte esterase. Care/management discussed with: track manager and [facility] Triage Nursing notes: reviewed and agree With them. Vital Signs: reviewed and unremarkable Additional History obtained from: family member at the bedside Chronic Medical/Social Conditions affecting care: recent vascular surgery of the right lower extremity; previous episodes of urinary retention requiring Ware catheter placement Prior/ Outside/ External records reviewed: I did review previous inpatient stays over the past year and previous urine cultures. Differential Diagnosis: cystitis, pyelonephritis, urinary retention, urinary outlet obstruction, obstructive uropathy, Diagnostics, independently interpreted by me: ECG: Normal sinus rhythm at a rate of [address] segment elevation or signs of ischemia Cardiac Monitoring: normal sinus rhythm at a rate of 76 HPI: 74 year old Male arrives for evaluation of suprapubic abdominal pain and painful urination. According to the patient's family, he has only been able to urinate a small amount with frequent episodes. History of previous episodes of urinary retention with Ware catheter placement. PAST MEDICAL HISTORY: See Below, PAST SURGICAL HISTORY: See Below, SOCIAL HISTORY: See Below, HOME MEDICATIONS: See list ALLERGIES: see list VITALS: See Below PHYSICAL EXAMINATION: HEENT: Head - normocephalic and atraumatic. Pupils are equal, round, and reactive to light. Extraocular eye muscles are intact, and sclera are anicteric. Nose - moist nasal mucosa without discharge. Mouth - moist buccal mucosa. Oropharynx is nonerythematous and there is no tonsillar exudate or edema noted. Neck: Supple; no cervical lymphadenopathy appreciated Heart: Tachycardic rate and regular rhythm. There is a normal S1 and S2 with no murmurs, clicks, or gallops appreciated. Lungs: Clear to auscultation bilaterally with no wheezes, rales, or rhonchi. Abdomen: Soft, moderate tenderness with palpation in the suprapubic region. The rest of the abdomen is mildly distended with good bowel sounds. There are no palpable pulsatile masses or hepatosplenomegaly. There is no guarding, rigidity, or rebound noted. Extremities: Patient has a well-healing surgical incision of the right lower extremity from vascular. Initial evaluation revealed moderate mottling of the lower extremities. Skin: Significant mottling of the lower extremities,warm and dry with good turgor and no rashes. Emergency department treatment: ekg monitor tech, IV normal saline bolus, IV Zofran, IV morphine, Ware catheter placement, IV cefepime emergency department course: The patient was evaluated in room B-4. A complete history and physical was performed. Previous electronic medical records were reviewed. IV lock was initiated and labs were drawn as above. The patient was medicated with IV morphine and IV Zofran for such significant pain. bladder scan was obtained and showed greater than 300 mL of urine. A Ware catheter was placed after lidocaine gel was used. Patient had significant drainage of foul appearing and smelling urine. I ordered the rest of the sepsis workup. Patient will receive 30 mL/kg crystalloid per ideal body weight. Patient was prophylaxed with IV cefepime. I discussed the case with the [facility] hospitalist and they will evaluate for further inpatient care. I have personally spent greater than 30 minutes of critical care time in the direct management of this patient. This includes bedside care, interpretation of diagnostic studies, and testing, discussion with consultants, patient, and family members, and other required patient management activities. This 30 minutes is in excess of all separately billable procedures. 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 Diabetic ulcer of right foot associated with diabetes mellitus due to underlying condition, with fat layer exposed Pressure injury of toe of left foot, unstageable Ulcer of left great toe due to diabetes mellitus Positive culture findings in wound Sacral wound Gross hematuria (Acute) PAD (peripheral artery disease) Medical History Hypothyroidism 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 diabetes mellitus ICAO (internal carotid artery occlusion) bilateral Essential hypertension 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 Dyslipidemia Embolic stroke involving right middle cerebral artery Osteomyelitis of ankle or foot, right, acute Presence of IVC filter Seizure-like activity Type 2 diabetes mellitus Carotid artery disease Kidney stone Surgical History S/P IVC filter History of thrombectomy S/P debridement multiple 07/25/24 right groin incision 07/02/24, 05/16/24 S/P femoral-tibial bypass S/P tonsillectomy S/P total hip arthroplasty S/P cataract surgery 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 Family History Other Cancer Diabetes Heart disease Social History Smoking Status: Never smoker Hx Alcohol Use: No Hx Substance Use: No Preferred Language: [place] Irish Communication Ability: Effective 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 Finishing Required: No Beliefs That Will Affect Care: None Current Living Situation: Rehab Current Living Situation Comment: patient currently at [facility] for rehab, normally lives with friend Seng Feels Safe at Home: Yes Assistive Devices: Walker Allergies 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--ALL VACCINES LAUNDRY DETERGENT AT Allergy Severe SEVERE Uncoded 08/26/24 11:16 [facility] Home Meds Home Medications Medication Instructions Recorded Confirmed amlodipine 5 mg tablet 5 mg PO QAM 03/23/24 08/26/24 liraglutide 0.6 mg/0.1 mL (18 mg/3 1.8 mg subcut QAM 03/23/24 08/26/24 mL) subcutaneous pen injector metformin 500 mg tablet,extended 1,500 mg PO QAM 03/23/24 08/26/24 release 24 hr oxycodone 5 mg tablet 5 mg PO BID PRN Pain, Severe 03/23/24 08/26/24 acetaminophen 325 mg tablet 650 mg PO Q6H PRN Pain 08/08/24 08/26/24 (Tylenol) atorvastatin 40 mg tablet 40 mg PO QAM 08/08/24 08/26/24 bisacodyl 10 mg rectal suppository 10 mg DC DAILY PRN Constipation 08/08/24 08/26/24 clopidogrel 75 mg tablet (Plavix) 75 mg PO QAM 08/08/24 08/26/24 colesevelam 625 mg tablet (WelChol) 625 mg PO BIDM 08/08/24 08/26/24 docusate sodium 100 mg capsule 100 mg PO BID PRN Constipation 08/08/24 08/26/24 empagliflozin 25 mg tablet 25 mg PO QAM 08/08/24 08/26/24 (Jardiance) ferrous sulfate 325 mg (65 mg 325 mg PO TIDM 08/08/24 08/26/24 iron) tablet gabapentin 100 mg capsule 100 mg PO BID 08/08/24 08/26/24 gabapentin 300 mg capsule 600 mg PO HS 08/08/24 08/26/24 levothyroxine 25 mcg tablet 25 mcg PO DAILYBB 08/08/24 08/26/24 lidocaine HCl 2 % topical gel 1 applic topical DIRECTED PRN 08/08/24 08/26/24 APPLY TO PENIS NEEDED melatonin 3 mg tablet 6 mg PO HS 08/08/24 08/26/24 pantoprazole 40 mg tablet,delayed 40 mg PO DAILYBB 08/08/24 08/26/24 release sennosides 8.6 mg tablet (senna) 8.6 mg PO BID 08/08/24 08/26/24 sennosides 8.6 mg-docusate sodium 2 tab-cap PO QDL PRN Constipation 08/08/24 08/26/24 50 mg tablet (Senna Plus) tamsulosin 0.4 mg capsule (Flomax) 0.4 mg PO HS 08/08/24 08/26/24 glimepiride 1 mg tablet 2 mg PO BID 08/26/24 08/26/24 glucagon HCl 1 mg solution for 1 mg IM DIRECTED PRN 08/26/24 08/26/24 injection (Glucagon (HCl) Hypoglycemia Emergency Kit) hydrocortisone 2.5 % topical cream 1 applic DC BID 08/26/24 08/26/24 with perineal applicator (Proctosol HC) insulin aspart U-100 100 unit/mL 1 sliding scale dose subcut 08/26/24 08/26/24 (3 mL) subcutaneous pen USEASDIRECTD loperamide 2 mg capsule 2 mg PO Q6H PRN Diarrhea 08/26/24 08/26/24 ondansetron 4 mg disintegrating 4 mg PO Q6H PRN Nausea And Vomiting 08/26/24 08/26/24 tablet polyethylene glycol 3350 17 17 g PO QDL PRN Constipation 08/26/24 08/26/24 gram/dose oral powder (Miralax) sodium phosphates 19 gram-7 118 ml DC DAILY PRN Constipation 08/26/24 08/26/24 gram/118 mL enema (Fleet Enema) aspirin 81 mg tablet 81 mg PO DAILY 09/04/24 09/04/24 Previous Rx's Medication Instructions Recorded L.acidop,casei,lactis,rham-B.lact,marianne 1 cap PO DAILY #10 caps 09/04/24 625 mg (10 billion cell) capsule (Advanced Probiotic) Results & Data (ED) Vital Signs Vital Signs - 24 hr 10/10/24 02:45 10/10/24 03:00 10/10/24 03:49 Temperature 36.8 C Temperature Source Oral Pulse Rate 121 H 93 H Pulse Rate [Apical] 89 Pulse Rhythm [Apical] Regular Pulse Strength [Apical] Normal Respiratory Rate 16 18 Respiratory Effort / Characteristics Non-Labored Spontaneous Non-Labored Spontaneous Respiratory Depth Normal Normal Respiratory Pattern Regular Blood Pressure [Right Arm] 110/73 Blood Pressure Mean [Right Arm] 85 Blood Pressure Position [Right Arm] Pulse Oximetry 100 98 Oxygen Delivery Method Room Air Room Air Sepsis Recent Fever Within 48 Hours No Sepsis New/Unexplained Change in Mental Status N/A Sepsis Action Taken by Nursing No Action Required 10/10/24 05:45 10/10/24 06:28 Temperature Temperature Source Pulse Rate Pulse Rate [Apical] 70 78 Pulse Rhythm [Apical] Regular Pulse Strength [Apical] Normal Respiratory Rate 18 18 Respiratory Effort / Characteristics Non-Labored Spontaneous Non-Labored Spontaneous Respiratory Depth Normal Normal Respiratory Pattern Blood Pressure [Right Arm] 141/85 H 125/91 Blood Pressure Mean [Right Arm] 103 102 Blood Pressure Position [Right Arm] Lying Pulse Oximetry 100 94 Oxygen Delivery Method Room Air Room Air Sepsis Recent Fever Within 48 Hours Sepsis New/Unexplained Change in Mental Status Sepsis Action Taken by Nursing Laboratory Data 10/10/24 03:18 10/10/24 03:18 Lab Results 10/10/24 10/10/24 10/10/24 Range/Units 03:18 04:35 05:07 WBC 23.61 H (4.8-10.8) K/ul RBC 5.12 (4.70-6.10) M/uL Hgb 13.4 L (14.0-18.0) g/dl Hct 42.4 (42.0-52.0) % MCV 82.8 (80.0-100.0) fL MCH 26.2 (25.0-34.0) pg MCHC 31.6 L (32.0-36.0) g/dL RDW Std Deviation 49.5 H (36.4-46.3) fL RDW Coeff of Raymond 16.5 H (11.5-14.5) % Plt Count 400 (130-400) K/uL MPV 11.1 (9.4-12.4) fL Immature Gran % (Auto) 0.6 % Neut % (Auto) 91.6 % Lymph % (Auto) 2.9 % Crenshaw % (Auto) 4.7 % Eos % (Auto) 0.0 % Baso % (Auto) 0.2 % Neut # (Auto) 21.63 H (1.40-6.50) K/uL Lymph # (Auto) 0.69 L (1.20-3.40) K/uL Crenshaw # (Auto) 1.12 H (0.11-0.59) K/uL Eos # (Auto) 0.00 (0.00-0.50) K/uL Baso # (Auto) 0.04 (0.00-0.20) K/uL Immature Gran # (Auto) 0.13 (0.01-0.20) K/uL Ovalocytes 1+ Sodium 138 (136-145) mmol/L Potassium 3.6 (3.5-5.1) mmol/L Chloride 101 (98-107) mmol/L Carbon Dioxide 24 (21-32) mmol/L Anion Gap 13 H (3-11) BUN 19 (6-23) mg/dl Creatinine 0.96 (0.6-1.4) mg/dl Est Cr Clr Drug Dosing Not Reportable eGFR 82.43 BUN/Creatinine Ratio 19.8 (10-20) Glucose 464 H* (70-99(Fasting)) mg/dl Lactate 3.6 H* (0.4-2.0) mmol/L Calcium 9.5 (8.6-10.3) mg/dl Procalcitonin 0.15 (0-0.5) ng/ml Urine Color Yellow Urine Appearance Cloudy A (Clear) Urine pH 5.5 (4.5-7.5) Ur Specific Waddy 1.028 (1.000-1.030) Urine Protein Trace H (Negative) Urine Glucose (UA) 3+ H (Negative) Urine Ketones Trace H (Negative) Urine Blood 3+ H (Negative) Urine Nitrite Negative (Negative) Urine Bilirubin Negative (Negative) Urine Urobilinogen Negative (Negative) Ur Leukocyte Esterase 2+ H (Negative) Urine WBC (Auto) >50 H (0-5) /hpf Urine RBC (Auto) 11-20 H (0-2) /hpf U Hyaline Cast (Auto) 0-2 (0-2) /lpf U Epithel Cells (Auto) 0-2 (0-2) /hpf Urine Bacteria (Auto) None Seen (None Seen) Urine Yeast Present A (None Prsent) Urine Comment Administered Medications Discontinued Medications Sodium Chloride (Nss) 1,000 mls @ 999 mls/hr IV .Q1H1M ONE Stop: 10/10/24 05:35 Last Infusion: 10/10/24 06:29 Dose: Infused Documented By: [facility] Admin: 10/10/24 05:10 Dose: 999 mls/hr Documented By: [facility] Cefepime HCl (Maxipime 2000mg) 2,000 mg in 20 mls @ 5 mls/min IV NOW STA; Protocol Stop: 10/10/24 04:38 Last Admin: 10/10/24 05:39 Dose: 5 mls/min Documented By: [facility] Sodium Chloride (Nss) 1,000 mls @ 999 mls/hr IV .Q1H1M ONE Stop: 10/10/24 05:51 Last Infusion: 10/10/24 06:47 Dose: Infused Documented By: [facility] Admin: 10/10/24 05:55 Dose: 999 mls/hr Documented By: [facility] Sodium Chloride (Nss) 250 mls @ 999 mls/hr IV .Q16M ONE Stop: 10/10/24 06:02 Last Admin: 10/10/24 06:29 Dose: 999 mls/hr Documented By: [facility] Discharge Plan Visit Data Chief Complaint: Abdominal Pain Stated Complaint: ABD PAIN ED Provider: Jackie Galeana Discharge Problem: Sepsis, Acute UTI, Acute urinary retention Condition: Critical Forms Stand Alone Forms: [facility] Referrals Referrals: PCP,NO [Primary Care Provider] -
[2024-10-10 04:56] LABS: Appearance Urine Cloudy (Clear); Bacteria Urine Automated None Seen (None Seen); Cast Urine Automated 0-2 /lpf (0-2); Epithelial Cell Urine Auto 0-2 /hpf (0-2); Glucose Urine UA 3+ (Negative); WBC Urine Automated >50 /hpf (0-5)
[2024-10-10] MEDS: SODIUM CHLORIDE 0.9% 1,000 ML IV ONE ×2 (05:10→05:55)
[2024-10-10] MEDS: CEFEPIME 2000MG 2,000 MG/20 ML SYR IV STA (05:39)
[2024-10-10] MEDS: SODIUM CHLORIDE 0.9% 250 ML IV ONE (06:29)
--- NOTE | 2024-10-10 07:53 | History & Physical Report ---
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 Patient was hospitalized in August 2024 with hematuria and was at the time was status post Ware catheter placement. Patient was status post cystoscopy with cystolitholopaxy, clot evacuation, fulguration of bleeding prostatic varicosities and fulguration of bladder neck on 08/10/2024. Urine cultures grew Jyoti glabrata. He was discharged on fluconazole for 4 weeks. Patient also had right TMA wound debridement on 07/02 and s/p 6 weeks of IV Invanz. Patient also has sacral pressure ulcer stage II. Last admission was discharged to rehab. Currently lives at home. Friend who is a power of health care attorney takes care of him. Patient is mostly wheelchair-bound. Needs assistance to transfer to the wheelchair. Ware is removed. currently. In the ER he was having urinary retention and again Ware was placed. Denies any fevers. Was feeling cold. Was nauseous. Denies any chest pain or shortness of breath. No headaches. No neck pain. No runny nose or sore throat. No cough. No difficulty swallowing but take some time to swallow as per the friend. No diarrhea or constipation. Hemodynamics are okay in the ER. Somewhat hard of hearing and friend helped with H&P. Sepsis Acute UTI Urinary retention status post Ware Initial lactic acid 3.6 and repeat is pending Status post fluids and IV cefepime in the ER Patient also has some blackish discoloration of the left big toe Stage II sacral pressure ulcers Will continue cefepime and add Vanco Will follow cultures Podiatry consult Wound care consult IV fluids Close monitor the hemodynamics Hyperglycemia Diabetes Hold home medications Lantus and sliding scale Glycemic pharmacy consult Will follow blood sugars Right groin wound Peripheral artery disease Right common femoral to popliteal bypass with nonreversed GSV on 06/28 status post debridements Status post right TMA wound debridement 07/02 with 6 weeks of IV Invanz Will consult wound care Will consult podiatry Continue aspirin, Plavix and Lipitor Seen by vascular surgery on 10/09/2024 and photos on the epic chart Advised to continue aspirin, Plavix and statin and wound care. Follow-up with vascular surgery as recommended Currently on antibiotics as above Hyperlipidemia On statin and colesevelam Stage II sacral pressure ulcers Wound care Hypertension Hold amlodipine for now as patient in sepsis Close monitor GERD Protonix BPH On Flomax History of hematuria Urinary retention S/p Ware Urology consult Will monitor Interstitial cystitis On elmiron Hypothyroidism On Synthyroid DVT prophylaxis Heparin subcu Disposition Telemetry CODE STATUS full code we will transfer record as per my discussion with the power of health care attorney History of Present Illness Chief Complaint: Sepsis Primary Care Provider: NO PCP 74-year-old male with past medical history significant for type 2 diabetes, hyperlipidemia, diabetic retinopathy, history of high anion gap metabolic acidosis, peripheral arterial disease, 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 Patient was hospitalized in August 2024 with hematuria and was at the time was status post Ware catheter placement. Patient was status post cystoscopy with cystolitholopaxy, clot evacuation, fulguration of bleeding prostatic varicosities and fulguration of bladder neck on 08/10/2024. Urine cultures grew Jyoti glabrata. He was discharged on fluconazole for 4 weeks. Patient also had right TMA wound debridement on 07/02 and s/p 6 weeks of IV Invanz. Patient also has sacral pressure ulcer stage II. Last admission was discharged to rehab. Currently lives at home. Friend who is a power of health care attorney takes care of him. Patient is mostly wheelchair-bound. Needs assistance to transfer to the wheelchair. Ware is removed. currently. In the ER he was having urinary retention and again Ware was placed. Denies any fevers. Was feeling cold. Was nauseous. Denies any chest pain or shortness of breath. No headaches. No neck pain. No runny nose or sore throat. No cough. No difficulty swallowing but take some time to swallow as per the friend. No diarrhea or constipation. Hemodynamics are okay in the ER. Somewhat hard of hearing and friend helped with H&P. Past medical history. As mentioned above Past surgical history. Left 2nd and 4th metatarsal head amputation for osteomyelitis. Amputation of the right foot transmetatarsal. Left femoral- popliteal artery revascularization with angioplasty. Lithotripsy. Tonsillectomy. Bilateral cataracts. Repair of hip fracture. Right tibial peroneal artery revascularization with stent placement. Right total hip arthroplasty. Right bypass graft femoral anterior tibial. Social history. . No smoking, no alcohol. No drug use. Family history. Brother had lung cancer. Brother had brain tumor. Sister had breast cancer. Thyroid cancer. Brain tumor. Sister had lung cancer. Father had diabetes. [place]. 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--ALL VACCINES LAUNDRY DETERGENT AT Allergy Severe SEVERE Uncoded 08/26/24 11:16 [facility] Home Medications Medication Instructions Recorded Confirmed Type amlodipine 5 mg tablet 5 mg PO DAILY 10/10/24 10/10/24 History aspirin 81 mg tablet,delayed 81 mg PO DAILY 10/10/24 10/10/24 History release atorvastatin 40 mg tablet 40 mg PO DAILY 10/10/24 10/10/24 History clopidogrel 75 mg tablet 75 mg PO DAILY 10/10/24 10/10/24 History colesevelam 625 mg tablet 625 mg PO BID 10/10/24 10/10/24 History empagliflozin 25 mg tablet 25 mg PO DAILY 10/10/24 10/10/24 History (Jardiance) ferrous sulfate 325 mg (65 mg 325 mg PO DAILY 10/10/24 10/10/24 History iron) tablet,delayed release glimepiride 4 mg tablet 4 mg PO BID 10/10/24 10/10/24 History levothyroxine 25 mcg tablet 25 mcg PO DAILY 10/10/24 10/10/24 History liraglutide 0.6 mg/0.1 mL (18 mg/3 1.8 mg subcut DAILY 10/10/24 10/10/24 History mL) subcutaneous pen injector metformin 500 mg tablet,extended 1,500 mg PO DAILY 10/10/24 10/10/24 History release 24 hr pantoprazole 40 mg tablet,delayed 40 mg PO DAILY 10/10/24 10/10/24 History release pentosan polysulfate sodium 100 mg 100 mg PO TID 10/10/24 10/10/24 History capsule (Elmiron) tamsulosin 0.4 mg capsule 0.4 mg PO DAILY 10/10/24 10/10/24 History tapentadol 50 mg tablet 50 mg PO Q6H PRN Severe Pain 10/10/24 10/10/24 History (Scale Score 7-10) 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 Diabetic ulcer of right foot associated with diabetes mellitus due to underlying condition, with fat layer exposed Pressure injury of toe of left foot, unstageable Ulcer of left great toe due to diabetes mellitus Positive culture findings in wound Sacral wound Gross hematuria (Acute) PAD (peripheral artery disease) Medical History Hypothyroidism 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 diabetes mellitus ICAO (internal carotid artery occlusion) bilateral Essential hypertension Guillain-Teaneck syndrome after administration of vaccine Dyslipidemia Embolic stroke involving right middle cerebral artery Osteomyelitis of ankle or foot, right, acute Presence of IVC filter Seizure-like activity Type 2 diabetes mellitus Carotid artery disease Kidney stone Surgical History S/P IVC filter History of thrombectomy S/P debridement multiple 07/25/24 right groin incision 07/02/24, 05/16/24 S/P femoral-tibial bypass S/P tonsillectomy S/P total hip arthroplasty S/P cataract surgery 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 Family History Other Cancer Diabetes Heart disease Social History Smoking Status: Never smoker Hx Alcohol Use: No Hx Substance Use: No Preferred Language: Cypriot Communication Ability: Effective Supervisor [employer] Required: No Beliefs That Will Affect Care: None Current Living Situation: Rehab Current Living Situation Comment: patient currently at [facility] for rehab, normally lives with friend Seng Feels Safe at Home: Yes Assistive Devices: Walker Review of Systems Review of Systems: All systems reviewed & are unremarkable except as noted in HPI & below Physical Exam Physical Exam: General-Not in acute distress. Hard of hearing. Head- atraumatic Eyes- PERRL. ENT- oropharynx clear Neck- supple, no JVD. Lungs- clear to auscultation no wheezing or crackles Heart- regular rhythm; no murmur, no gallop. Abdomen- normal bowel sounds, soft, nontender, no distension. right groin wound no drainage seen Extremities- no pretibial edema, right metatarsal amputation site healing. Left big toe distal part blackish discoloration Neuro- alert, oriented , Hard of hearing; PERRL, no facial palsy; no dysarthria;. Results & Data Results & Data Vital Signs (Past 12 Hours) Vital Signs Temp Pulse Pulse Resp BP Pulse Ox O2 Del Method 10/10/24 06:28 78 18 125/91 94 Room Air 10/10/24 05:45 70 18 141/85 H 100 Room Air 10/10/24 03:49 89 18 110/73 98 Room Air 10/10/24 03:00 36.8 C 93 H 16 100 Room Air 10/10/24 02:45 121 H Diagnostic Findings Laboratory Results WBC 23.61 K/ul (4.8-10.8) H 10/10/24 03:18 RBC 5.12 M/uL (4.70-6.10) 10/10/24 03:18 Hgb 13.4 g/dl (14.0-18.0) L 10/10/24 03:18 Hct 42.4 % (42.0-52.0) 10/10/24 03:18 MCV 82.8 fL (80.0-100.0) 10/10/24 03:18 MCH 26.2 pg (25.0-34.0) 10/10/24 03:18 MCHC 31.6 g/dL (32.0-36.0) L 10/10/24 03:18 RDW Std Deviation 49.5 fL (36.4-46.3) H 10/10/24 03:18 RDW Coeff of Raymond 16.5 % (11.5-14.5) H 10/10/24 03:18 Plt Count 400 K/uL (130-400) 10/10/24 03:18 MPV 11.1 fL (9.4-12.4) 10/10/24 03:18 Immature Gran % (Auto) 0.6 % 10/10/24 03:18 Neut % (Auto) 91.6 % 10/10/24 03:18 Lymph % (Auto) 2.9 % 10/10/24 03:18 [place] % (Auto) 4.7 % 10/10/24 03:18 Eos % (Auto) 0.0 % 10/10/24 03:18 Baso % (Auto) 0.2 % 10/10/24 03:18 Neut # (Auto) 21.63 K/uL (1.40-6.50) H 10/10/24 03:18 Lymph # (Auto) 0.69 K/uL (1.20-3.40) L 10/10/24 03:18 [place] # (Auto) 1.12 K/uL (0.11-0.59) H 10/10/24 03:18 Eos # (Auto) 0.00 K/uL (0.00-0.50) 10/10/24 03:18 Baso # (Auto) 0.04 K/uL (0.00-0.20) 10/10/24 03:18 Immature Gran # (Auto) 0.13 K/uL (0.01-0.20) 10/10/24 03:18 Ovalocytes 1+ 10/10/24 03:18 Sodium 138 mmol/L (136-145) 10/10/24 03:18 Potassium 3.6 mmol/L (3.5-5.1) 10/10/24 03:18 Chloride 101 mmol/L (98-107) 10/10/24 03:18 Carbon Dioxide 24 mmol/L (21-32) 10/10/24 03:18 Anion Gap 13 (3-11) H 10/10/24 03:18 BUN 19 mg/dl (6-23) 10/10/24 03:18 Creatinine 0.96 mg/dl (0.6-1.4) 10/10/24 03:18 Est Cr Clr Drug Dosing Not Reportable 10/10/24 03:18 eGFR 82.43 10/10/24 03:18 BUN/Creatinine Ratio 19.8 (10-20) 10/10/24 03:18 Glucose 464 mg/dl (70-99(Fasting)) H* 10/10/24 03:18 Lactate 3.6 mmol/L (0.4-2.0) H* 10/10/24 05:07 Calcium 9.5 mg/dl (8.6-10.3) 10/10/24 03:18 Procalcitonin 0.15 ng/ml (0-0.5) 10/10/24 04:35 Urine Color Yellow 10/10/24 03:18 Urine Appearance Cloudy (Clear) A 10/10/24 03:18 Urine pH 5.5 (4.5-7.5) 10/10/24 03:18 Ur Specific [place] 1.028 (1.000-1.030) 10/10/24 03:18 Urine Protein Trace (Negative) H 10/10/24 03:18 Urine Glucose (UA) 3+ (Negative) H 10/10/24 03:18 Urine Ketones Trace (Negative) H 10/10/24 03:18 Urine Blood 3+ (Negative) H 10/10/24 03:18 Urine Nitrite Negative (Negative) 10/10/24 03:18 Urine Bilirubin Negative (Negative) 10/10/24 03:18 Urine Urobilinogen Negative (Negative) 10/10/24 03:18 Ur Leukocyte Esterase 2+ (Negative) H 10/10/24 03:18 Urine WBC (Auto) >50 /hpf (0-5) H 10/10/24 03:18 Urine RBC (Auto) 11-20 /hpf (0-2) H 10/10/24 03:18 U Hyaline Cast (Auto) 0-2 /lpf (0-2) 10/10/24 03:18 U Epithel Cells (Auto) 0-2 /hpf (0-2) 10/10/24 03:18 Urine Bacteria (Auto) None Seen (None Seen) 10/10/24 03:18 Urine Yeast Present (None Prsent) A 10/10/24 03:18 Urine Comment 10/10/24 03:18 ECG Additional Comments: ECG. Sinus rhythm with PVCs at a rate of 76. Nonspecific T wave abnormalities in lateral and inferior leads. QTc 490 Code Status & VTE Plan VTE Prophylaxis Plan VTE Prophylaxis will be ordered: Yes
[2024-10-10] MEDS: Patient's HEIGHT &/or WEIGHT Needed SCH (08:29)
[2024-10-10] MEDS: VANCOMYCIN HCL 1,500 MG in SODIUM CHLORIDE 0.9% 500 ML IV STA (09:30)
[2024-10-10] MEDS: SODIUM CHLORIDE 0.9% 1,000 ML IV SCH (09:30)
[2024-10-10] MEDS ORDERED: DEXTROSE 50% 50 ML SYRINGE IV PRN (10:59)
[2024-10-10] MEDS ORDERED: GLUCAGON FOR INJ 1 MG VIAL SQ PRN (10:59)
[2024-10-10] MEDS ORDERED: PHARMACY GLYCEMIC MGMT CONSULT PRN (10:59)
[2024-10-10] MEDS ORDERED: GLUCOSE 40% GEL 15 GM TUBE PO PRN (10:59)
[2024-10-10] MEDS ORDERED: NITROGLYCERIN SL 0.4 MG/TAB TAB SL PRN (10:59)
[2024-10-10] MEDS ORDERED: GLUCOSE 10 TAB/TUBE PO PRN (10:59)
[2024-10-10] MEDS ORDERED: CARBOHYDRATES FOR HYPOGLYCEMIA PO PRN (10:59)
--- NOTE | 2024-10-10 12:33 | Pharmacy Report ---
Pharmacy PK ABX Note - Date of Service October 10, 2024 - Assessment and Plan Assessment 74 year old M receiving vancomycin and cefepime for treatment of UTI vs SSTI/osteo. Pertinent microbiologic data includes: urine culture, blood culture x2 pending. Day # 1 of antimicrobial therapy. Plan Vancomycin * Loading dose: 1500 mg IV x 1 (20 mg/kg) * Maintenance dose: TBD * Baseline SCr around 0.5 mg/dL. Current SCr 0.96 mg/dL this morning. Lactate elevated, urinary retention. Given potential GAVINO, plan to get random at 1530 and use Bayesian calculator to determine dose. Follow up SCr 8 AM labs to monitor trend and urine output to assess renal function. * Random level ordered for: 10/10/24 @1530 Pharmacy will continue to follow and will adjust dose/frequency as necessary. Thank you. Pharmacy has transitioned to AUC monitoring for vancomycin. AUC/MACKENZIE is the preferred PK/PD target and is associated with decreased risk of nephrotoxicity compared to traditional trough targets.
[2024-10-10] MEDS: FERROUS SULFATE 325 MG TAB PO SCH (12:44)
[2024-10-10] MEDS: ATORVASTATIN 40 MG TAB PO SCH (12:44)
[2024-10-10] MEDS: ASPIRIN 81 MG ECTAB PO SCH (12:44)
[2024-10-10] MEDS: TAMSULOSIN HCL 0.4 MG CAP PO SCH (12:45)
[2024-10-10] MEDS: CLOPIDOGREL BISULFATE 75 MG TAB PO SCH (12:45)
[2024-10-10] MEDS: LEVOTHYROXINE SODIUM 25 MCG TABLET PO SCH (12:45)
[2024-10-10] MEDS: INSULIN ASPART PER UNIT CHARGE SC SCH (13:10)
[2024-10-10] MEDS: LANTUS PER UNIT CHARGE SQ ONE (13:10)
[2024-10-10] MEDS: CEFEPIME 2000MG 2,000 MG/20 ML SYR IV SCH (13:10)
[2024-10-10] MEDS: HEPARIN SOD 5,000 UNIT/0.5 ML VIAL SQ SCH (13:11)
--- NOTE | 2024-10-10 13:13 | Podiatry Consultation ---
Date of Consultation October 10, 2024 Assessment & Plan (1) Open wound of right ankle: Encounter type: initial encounter Qualified Code(s): S91.001A - Unspecified open wound, right ankle, initial encounter (2) History of amputation of lesser toe of left foot: (3) Status post transmetatarsal amputation of right foot: (4) Diabetic ulcer of right foot associated with diabetes mellitus due to underlying condition, with fat layer exposed: Diabetic foot ulcer location: midfoot Qualified Code(s): E08.621 - Diabetes mellitus due to underlying condition with foot ulcer; L97.412 - Non- pressure chronic ulcer of right heel and midfoot with fat layer exposed (5) Ulcer of left great toe due to diabetes mellitus: (6) Pressure injury of toe of left foot, unstageable: (7) Dry gangrene: Plan Bilateral foot wounds: S/P TMA right foot, dry gangrene distal medial left hallux. Bilateral foot wounds unlikely source of infection with no clinical signs of local soft tissue infection, exposed bone or tendon and no active drainage from the wounds which are healing at a reasonable rate given patient's multiple comorbidities. Right foot: Wound dehiscence at medial ankle from bypass surgery to the right lower extremity. Bypass wounds of showed gradual progress with decreased depth and dimensions since last seen. No signs of local soft tissue infection. - Dressing change once daily medial ankle wound cleansing with normal sterile saline and dressing with Aquacel Ag and a dry sterile dressing including ABD to the anterior ankle held in place with Kerlix and tape. Transmetatarsal amputation wound medially continues to decrease in dimensions with no exposed bone tendon or joint. No signs of local soft tissue infection - Cleanse wound once daily with normal sterile saline dry and dressed with Aquacel Ag and a dry sterile dressing. Left foot: stable eschar in place to the distal aspect of left Hallux with no signs of local soft tissue infection. I discussed recommendation for amputation versus continued conservative care. Patient requesting continued wound care in hopes that demarcated tissue will auto amputate over time with local wound care. I explained to patient and software support specialist that this is not unreasonable so long as the eschar is dry and stable and there are no signs of local soft tissue infection to the hallux. Should he develop infection to the soft tissue surrounding the eschar would recommend prompt amputation of the digit. - Conner eschar with Betadine once daily and leave exposed to air. Avoid pressure to the distal left hallux including pressure from blankets and footboard. No indication for nor base debridement of right foot wounds. Continue bilateral heel offloading boots at all times while in bed. Elevate heels off bed with pillow behind the leg. Postop shoes to be worn for ambulation short distance and transfer. Continues empiric Cefepime IV q8h History of Present Illness Reason for Consultation: Right foot wound status post transmetatarsal amputation Left hallux unstageable pressure injury distal dry gangrene Attending Physician: Yehuda Govea MD History of Present Illness Patient reports to the emergency department with abdominal pain. Meet sepsis criteria. UTI, groin wound, right foot wounds, dry gangrene to the left hallux, stage II sacral pressure ulcer. s/p right TMA wound debridement 07/02, s/p 6 weeks IV Invanz. CTA 08/12/2024 reviewed with concern for possible osteomyelitis of metatarsal remnants of the right foot. No signs of local soft tissue infection or exposed bone within the right foot wound at this time. Wounds of the right foot have shown progress with decreased depth and dimensions since l ast evaluated on 08/29/2024. Patient has history of transmetatarsal amputation on the right foot with residual osteomyelitis of the first metatarsal, which is treated with debridement and antibiotics which he completed on 08/16/2024. Bilateral foot and ankle wounds discussed with patient and his software support specialist. Manufacturing Analyst has continued to change dressings once daily with Betadine wet to dry to all wounds. Patient has been using his postop shoes to transfer and remains wheelchair-bound primarily at home. Denies pain to bilateral foot. Manufacturing Analyst reports minimal drainage from the right foot wounds and no drainage or signs of infections to the left hallux wound. 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--ALL VACCINES LAUNDRY DETERGENT AT Allergy Severe SEVERE Uncoded 08/26/24 11:16 [facility] Home Medications Medication Instructions Recorded Confirmed Type amlodipine 5 mg tablet 5 mg PO DAILY 10/10/24 10/10/24 History aspirin 81 mg tablet,delayed 81 mg PO DAILY 10/10/24 10/10/24 History release atorvastatin 40 mg tablet 40 mg PO DAILY 10/10/24 10/10/24 History clopidogrel 75 mg tablet 75 mg PO DAILY 10/10/24 10/10/24 History colesevelam 625 mg tablet 625 mg PO BID 10/10/24 10/10/24 History empagliflozin 25 mg tablet 25 mg PO DAILY 10/10/24 10/10/24 History (Jardiance) ferrous sulfate 325 mg (65 mg 325 mg PO DAILY 10/10/24 10/10/24 History iron) tablet,delayed release glimepiride 4 mg tablet 4 mg PO BID 10/10/24 10/10/24 History levothyroxine 25 mcg tablet 25 mcg PO DAILY 10/10/24 10/10/24 History liraglutide 0.6 mg/0.1 mL (18 mg/3 1.8 mg subcut DAILY 10/10/24 10/10/24 History mL) subcutaneous pen injector metformin 500 mg tablet,extended 1,500 mg PO DAILY 10/10/24 10/10/24 History release 24 hr pantoprazole 40 mg tablet,delayed 40 mg PO DAILY 10/10/24 10/10/24 History release pentosan polysulfate sodium 100 mg 100 mg PO TID 10/10/24 10/10/24 History capsule (Elmiron) tamsulosin 0.4 mg capsule 0.4 mg PO DAILY 10/10/24 10/10/24 History tapentadol 50 mg tablet 50 mg PO Q6H PRN Severe Pain 10/10/24 10/10/24 History (Scale Score 7-10) Patient History Medical History Hypothyroidism 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 diabetes mellitus ICAO (internal carotid artery occlusion) bilateral Essential hypertension 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 Dyslipidemia Embolic stroke involving right middle cerebral artery Osteomyelitis of ankle or foot, right, acute Presence of IVC filter Seizure-like activity Type 2 diabetes mellitus Carotid artery disease Kidney stone Surgical History S/P IVC filter History of thrombectomy S/P debridement multiple 07/25/24 right groin incision 07/02/24, 05/16/24 S/P femoral-tibial bypass S/P tonsillectomy S/P total hip arthroplasty S/P cataract surgery 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 Family History Other Cancer Diabetes Heart disease Social History Smoking Status: Never smoker Hx Alcohol Use: No Hx Substance Use: No Preferred Language: Kuwaiti Communication Ability: Effective Gathering Machine Setter Required: No Beliefs That Will Affect Care: None Current Living Situation: Rehab Current Living Situation Comment: patient currently at [facility] for rehab, normally lives with friend Seng Feels Safe at Home: Yes Assistive Devices: Walker Review of Systems Review of Systems: Denies nausea, vomiting, fever, chills. Reports pain from sacral wound. Denies pain to the bilateral foot. Physical Exam Physical Exam: Const: No signs of acute distress present. Denies nausea, vomiting, fever or chills. CV: Extremities: Capillary refill time is 3 seconds all digits of the left foot with exception of dry eschar to the hallux and to the amputation site of the right foot. Pedal pulses are nonpalpable bilateral. Recent right lower extremity bypass surgery with open/dehisced wound to the medial ankle. Lymph: No palpable or visible regional lymphadenopathy. Skin: Skin is thin and atrophic in the bilateral lower extremity below the knee with loss of hair growth. See wound exam Neuro: Loss of protective sensation of bilateral foot Psych: Mood/Affect: Mood is normal. Affect is normal. Cognition: Orientation is intact to person, place and time. Focused lower extremity musculoskeletal exam: Leg: No pain with compression of the calf muscle. Right foot: Status post transmetatarsal amputation which is well-healed laterally and open with granular wound medially. Wound is decreased in dimensions since the time of previous admission. Healthy granular wound bed. No active drainage. Overall promising outlook given relatively rapid improvement seen over the patient's most recent admission. 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 Patient has a stable eschar to the distal medial aspect of the right great toe. Edges of the eschar currently well adhered to surrounding healthy soft tissue. There is no signs of local soft tissue infection and eschar is well adhered to the underlying tissue. Results & Data Vital Signs (Past 12 Hours) Vital Signs Temp Pulse Pulse Resp BP Pulse Ox O2 Del Method 10/10/24 11:00 88 16 123/86 99 Room Air 10/10/24 10:00 91 H 18 107/73 98 Room Air 10/10/24 08:16 87 10/10/24 06:28 78 18 125/91 94 Room Air 10/10/24 05:45 70 18 141/85 H 100 Room Air 10/10/24 03:49 89 18 110/73 98 Room Air 10/10/24 03:00 36.8 C 93 H 16 100 Room Air 10/10/24 02:45 121 H PG Care Time/CCT Total # of Minutes Spent Total Time Spent with Patient: Total time spent is greater than 50% in coordination of care (as documented) at patient's floor/unit and/or counseling patient: Coding Level of Care Code 90589 INT INP/OBS CARE 2/55MIN Diagnoses Open wound of right ankle, initial encounter S91.001A Encounter type: initial encounter History of amputation of lesser toe of left foot Z89.422 Status post transmetatarsal amputation of right foot Z89.431 Diabetic ulcer of right midfoot associated with diabetes mellitus due to underlying condition, with fat layer exposed E08.621; L97.412 Diabetic foot ulcer location: midfoot Ulcer of left great toe due to diabetes mellitus E11.621; L97.529 Pressure injury of toe of left foot, unstageable L89.890 Dry gangrene I96
--- NOTE | 2024-10-10 13:32 | Pharmacy Report ---
Pharmacy Glycemic Short Note 2 - Date of Service October 10, 2024 - Glycemic Short BSG Results (Last 24 hours): 10/10/24 10/10/24 03:18 11:58 Glucose 464 H* POC Glucose 178 H OUTPATIENT ANTIDIABETIC REGIMEN: * empagliflozin 25mg PO daily * glimepiride 4mg PO BID * metformin 1500mg PO daily * liraglutide 1.8mg SQ daily HbA1c: 5.6% on 08/10/24 ASSESSMENT: * Reji is a 74 year old male who was admitted today for suprapubic abdominal pain and severe pain on urination. BSG via lab draw was 464mg/dL on admit. He has a history of high AG metabolic acidosis and pancreatitis. Pharmacy was consulted for glycemic management while he is admitted. * Lunch POC BSG reading was 178mg/dL. Lantus 5 units SQ x 1 was ordered for today and a weight based bolus insulin regimen with a stress of 2 was started. PLAN FOR INPATIENT GLYCEMIC CONTROL: * Hold outpatient oral diabetes medications * Basal insulin * Lantus 5 units SQ x 1, further dosing will be determined with additional BSG readings * Bolus insulin * NovoLog per scale ACHS or Q6hrs while NPO * Goal Range: Low 120 mg/dL - High 150 mg/dL * Correction Factor: 30 mg/dL/unit * Nutritional / Prandial insulin per carb ratio of 1 unit per 10 grams CHO consumed
[2024-10-10] MEDS ORDERED: VANCOMYCIN HCL 1,000 MG/270 ML BAG IV SCH (15:00)
[2024-10-10] MEDS: VANCOMYCIN CONSULT ACTIVE SCH (17:17)
--- NOTE | 2024-10-10 17:36 | Electrocardiogram Report ---
Test Reason : Blood Pressure : */* mmHG Vent. Rate : 76 BPM Atrial Rate : 76 BPM P-R Int : 184 ms QRS Dur : 62 ms QT Int : 436 ms P-R-T Axes : * 1 24 degrees QTcB Int : 490 ms Poor data quality, interpretation may be adversely affected Sinus rhythm with Premature supraventricular complexes Prolonged QT When compared with ECG of 26-Aug-2024 09:33, Premature supraventricular complexes are now Present QT has lengthened Confirmed by Wander Mensah ([id number]) on 10/10/2024 5:35:49 PM Referred By: REFERRED SELF Confirmed By: Wander Mensah
[2024-10-10] MEDS: VANCOMYCIN 750 MG in SODIUM CHLORIDE 0.9% 250 ML IV SCH (20:31)
--- NOTE | 2024-10-10 21:34 | Communication Note ---
Patient presenting with sepsis from UTI vs. less likely foot infections. Could also have element of mild DKA given ketones in urine and elevated glucose with elevated AG and lactic acid. Treated with broad spectrum abx vanc/cefepime, will await culture data. Received adequate fluid resuscitation. Glucose much improved on subq insulin and improved with fluids and abx. Date of Service: October 10, 2024
[2024-10-10] MEDS: TAPENTADOL HCL 50 MG TAB PO PRN (22:43)
[2024-10-10 23:39] LABS: A calco-baum cmplx NotReported Not Detected (NotDetected); Bact fragilis Not Reported Not Detected (NotDetected); Blood Culture Id Panel See PCR Comment (NotDetected); C auris Not Reported Not Detected (NotDetected); Calbicans Not Reported Not Detected (NotDetected); Candida glabrata Not Reported Not Detected (NotDetected); Candida krusei Not Reported Not Detected (NotDetected); Cneoformans/gatti Not Reported Not Detected (NotDetected); Cparapsilosis Not Reported Not Detected (NotDetected); Ctropicalis Not Reported Not Detected (NotDetected); E cloacae compx Not Reported Not Detected (NotDetected); Efaecalis Not Reported Not Detected (NotDetected); Efaecium Not Reported Not Detected (NotDetected); Enterobacterales Not Reported Not Detected (NotDetected); Escherichia coli Not Reported Not Detected (NotDetected); H influenzae Not Reported Not Detected (NotDetected); K aerogenes Not Reported Not Detected (NotDetected); Koxytoca Not Reported Not Detected (NotDetected); Kpneumoniae grp Not Reported Not Detected (NotDetected); Lmonocyt Not Reported Not Detected (NotDetected); N meningitidis Not Reported Not Detected (NotDetected); P aeruginosa Not Reported Not Detected (NotDetected); Proteus spp Not Reported Not Detected (NotDetected); Salmonella spp Not Reported Not Detected (NotDetected); Staph lugdunensis Not Reported Not Detected (NotDetected); Staph spp. Not Reported DETECTED (NotDetected); Staphaureus Not Reported Not Detected (NotDetected); Staphepi Not Reported Not Detected (NotDetected); Stenmaltophilia Not Reported Not Detected (NotDetected); Strep agal(GrpB) Not Reported Not Detected (NotDetected); Strep pneum Not Reported Not Detected (NotDetected); Strep pyog (GrpA) Not Reported Not Detected (NotDetected); Strep spp Not Reported Not Detected (NotDetected)
[2024-10-10 23:47] LABS: Staphylococcus spp. DETECTED (NotDetected)
--- NOTE | 2024-10-11 06:48 | Ultrasound Report ---
EXAM: US arterial duplex LE LT CLINICAL HISTORY: Left leg pain. Cool to papation TECHNIQUE: An ultrasound examination of the left lower extremity arteries with ankle brachial indices was performed in real time and duplex. One or more of the following were performed: spectral analysis, resistive index, waveform analysis, and pulsed Doppler. COMPARISON: None. FINDINGS: Vessel Flow Pattern Left Peak Velocity Left (cm/sec) Common Femoral Artery (COREMAKER) [Tri] 50 Deep Femoral Artery (DPA) [Tri] 61 Superficial Femoral Artery (SFA) [Bi/Tri] 102, proximal, elevated. 77, mid. Popliteal Artery (POP A) [Izard/Bi] 49 Posterior Tibial Artery (SEPARATOR INSERTER) [Izard/Bi] 30 Anterior Tibial Artery (VANDANA) [Izard/Bi] 248, elevated. Peroneal Artery [Izard/Bi] 48-64 Dorsalis Pedis Artery (DPA) [Izard/Bi] 49 Ankle-brachial index was not done. Heavy plaques were noted in the arteries of the left lower extremity, with irregular waveform suspected to be from cardiac disease. Elevated peak systolic velocity of the proximal SFA and VANDANA. The SEPARATOR INSERTER at the ankle level could not be seen due to the bandage. Normal triphasic waveform pattern was observed in the SFA and DFA. Izard-biphasic flow was observed in the rest of the segments. Collateral Circulation: Not provided. IMPRESSION: 1. Heavy plaques were noted in the arteries of the left lower extremity. 2. Elevated peak systolic velocity of the proximal SFA, VANDANA, and peroneal artery. 3. Findings are consistent with moderate Peripheral Artery Disease predominantly in the leg. 4. CT angiography is advised if clinically indicated. Electronically signed by Harshal Hoover 10-11-2024 06:47 AM
[2024-10-11 08:14] LABS: Hematocrit (blood only) 34.8 % (42.0-52.0); Hemoglobin 10.7 g/dl (14.0-18.0); Immature Granulocytes # (auto) 0.03 K/uL (0.01-0.20); Immature Granulocytes % (auto) 0.3 %; Mean Corpuscular Hemoglobin 25.8 pg (25.0-34.0); Mean Corpuscular Volume 84.1 fL (80.0-100.0); Platelet Count 287 K/uL (130-400); RDW Standard Deviation 51.4 fL (36.4-46.3); Red Blood Count 4.14 M/uL (4.70-6.10); White Blood Count 9.16 K/ul (4.8-10.8)
[2024-10-11 08:33] LABS: Anion Gap 5.0 (3-11); Blood Urea Nitrogen 10.0 mg/dl (6-23); Calcium 8.3 mg/dl (8.6-10.3); Carbon Dioxide 28.0 mmol/L (21-32); Chloride 109.0 mmol/L (98-107); Creatinine Clr Calc Pharmacy 131.4 ml/min; Glucose 82.0 mg/dl (70-99(Fasting)); Magnesium 1.4 mg/dl (1.7-2.4); Potassium 2.9 mmol/L (3.5-5.1); Sodium 142.0 mmol/L (136-145)
[2024-10-11 09:29] LABS: Hemoglobin A1C 6.6 % (4.5-5.6)
[2024-10-11] MEDS: LORazepam 0.5 MG TAB PO STA (11:51)
--- NOTE | 2024-10-11 12:39 | Pharmacy Report ---
Pharmacy PK ABX Note - Date of Service October 11, 2024 - Assessment and Plan Assessment 10/11: Day #2 antimicrobial therapy * Random vanco level was 11.5mcg/mL yesterday afternoon and SCr improved back to baseline so the maintenance dose of vancomycin was changed to 1250mg iv q 8 ho urs. * 1 of 2 blood cultures from 10/10 is growing gram positive cocci in clusters (Biofire shows staphylococcus sp), urine culture is pending. * leukocytosis resolved (wbc 9.1 today), afebrile, renal function at baseline 10/10: 74 year old M receiving vancomycin and cefepime for treatment of UTI vs SSTI/osteo. Pertinent microbiologic data includes: urine culture, blood culture x2 pending. Plan Vancomycin * Loading dose: 1500 mg IV x 1 (20 mg/kg) * Maintenance dose: 1250mg iv q 8 hours * Random level ordered for: 10/11/24 @ 0830 Cefepime 2gm iv q 8 hours Pharmacy will continue to follow and will adjust dose/frequency as necessary. Thank you. Pharmacy has transitioned to AUC monitoring for vancomycin. AUC/MACKENZIE is the preferred PK/PD target and is associated with decreased risk of nephrotoxicity compared to traditional trough targets.
--- NOTE | 2024-10-11 13:17 | Pharmacy Report ---
Pharmacy Glycemic Short Note 2 - Date of Service October 11, 2024 - Glycemic Short BSG Results (Last 24 hours): 10/10/24 10/10/24 10/11/24 17:01 19:59 07:23 Glucose POC Glucose 84 136 H 75 10/11/24 10/11/24 07:48 11:33 Glucose 82 POC Glucose 161 H OUTPATIENT ANTIDIABETIC REGIMEN: * empagliflozin 25mg PO daily * glimepiride 4mg PO BID * metformin 1500mg PO daily * liraglutide 1.8mg SQ daily HbA1c: 5.6% on 08/10/24 ASSESSMENT: 10/11: * Reji received a total of 7 units of insulin yesterday (5 units were basal and 2 units were bolus). * Fasting BSG was 75mg/dL this morning. Will hold additional Lantus for now and will loosen carb ratio (BSG was 84mg/dL at dinner last evening as well) 10/10: * Reji is a 74 year old male who was admitted today for suprapubic abdominal pain and severe pain on urination. BSG via lab draw was 464mg/dL on admit. He has a history of high AG metabolic acidosis and pancreatitis. Pharmacy was consulted for glycemic management while he is admitted. * Lunch POC BSG reading was 178mg/dL. Lantus 5 units SQ x 1 was ordered for today and a weight based bolus insulin regimen with a stress of 2 was started. PLAN FOR INPATIENT GLYCEMIC CONTROL: * Hold outpatient oral diabetes medications * Basal insulin * hold for now * Bolus insulin * NovoLog per scale ACHS or Q6hrs while NPO * Goal Range: Low 120 mg/dL - High 150 mg/dL * Correction Factor: 30 mg/dL/unit * Nutritional / Prandial insulin per carb ratio of 1 unit per 20 grams CHO consumed
--- NOTE | 2024-10-11 15:57 | Hospitalist Progress Note ---
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 #Severe Sepsis #Complicated UTI #Stage II Sacral Ulcers -improving with fluids and abx Plan: -continue abx until cultures speciate -Podiatry consult, appreciate recs -Wound care consult, appreciate assistance #JAMIE #Complicated Grief -patient is struggling with passing of several years ago -very anxious at this time Plan: -start buspar 5 mg tid -pastoral care consult, appreciate recs Hyperglycemia Diabetes -continue lantus and SSI Right groin wound Peripheral artery disease Right common femoral to popliteal bypass with nonreversed GSV on 06/[address]bridements Status post right TMA wound debridement 07/02 with 6 weeks of IV Invanz -Will consult wound care -Will consult podiatry -Continue aspirin, Plavix and Lipitor -Seen by vascular surgery on 10/09/2024 and photos on the epic chart -Advised to continue aspirin, Plavix and statin and wound care. Follow-up with vascular surgery as recommended -Currently on antibiotics as above Hyperlipidemia -On statin and colesevelam Hypertension -Close monitor GERD -Protonix BPH -On Flomax History of hematuria Urinary retention S/p Ware -Urology consulted, appreciate recs Will monitor Interstitial cystitis -On elmiron Hypothyroidism -On Synthyroid I spent a total of 50 minutes in direct patient care, including [id number] time with the patient and/or family, reviewing medical records, ordering and reviewing diagnostic tests, and coordinating care with other healthcare providers. This time includes: history taking, physical examination, medical decision making, counseling, ECG interpretation, imaging interpretation, lab interpretation, orders, and education, excluding time spent in the performance of separately billed services. Admission and Anticipated Discharge Date Admission Date: October 10, 2024 Subjective Patient seen and examined at bedside. Patient tearful today. Expresses he wants to be a DNRDNI. Family requesting discussion regarding hospice services. This provider explained that patient does not have terminal illness at this time and is clinically improving. They were relieved and appreciative of the update. Patient very anxious and tearful in room. States he misses his who from cancer. Review of Systems Review of Systems: CONSTITUTIONAL: Patient denies fevers, chills, sweats and weight changes. EYES: Patient denies any visual symptoms. EARS, NOSE, AND THROAT: No difficulties with hearing. No symptoms of rhinitis or sore throat. CARDIOVASCULAR: Patient denies chest pains, palpitations, orthopnea and paroxysmal nocturnal dyspnea. RESPIRATORY: No dyspnea on exertion, no wheezing or cough. GI: No nausea, vomiting, diarrhea, constipation, abdominal pain, hematochezia or melena. : No urinary hesitancy or dribbling. No nocturia or urinary frequency. No abnormal urethral discharge. MUSCULOSKELETAL: No myalgias or arthralgias. NEUROLOGIC: No chronic headaches, no seizures. Patient denies numbness, tingling or weakness. PSYCHIATRIC: anxious, tired ENDOCRINE: No excessive urination or excessive thirst. DERMATOLOGIC: Patient denies any rashes or skin changes. Physical Exam Physical Exam: Gen: A&O 3 NAD HEENT: NCAT, EOMI, not icteric. External ears normal. No rhinorrhea. Moist mucous membranes. Neck: Supple, full range of motion, no observable masses, No meningeal sign. Lungs: No Respiratory distress. CV: RRR, no edema. Abdomen: Soft, nondistended, No rebound tenderness. MSK: No joint swelling, no redness. Skin: No rashes, petechiae, lesions. Normal color per patient. Neuro: Normal Gait, Grossly intact. slight bilateral tremors noted with movement and at rest Psych: tearful, anxious Results & Data Results & Data Vital Signs (Past 12 Hours) Vital Signs Temp Pulse Pulse Resp BP Pulse Ox O2 Del Method 10/11/24 15:17 87 10/11/24 15:13 36.6 C 91 H 19 127/70 96 Room Air 10/11/24 11:30 36.4 C L 87 19 129/74 95 Room Air 10/11/24 08:30 Room Air 10/11/24 08:00 69 10/11/24 07:08 36.5 C 67 19 117/68 99 Room Air Laboratory Results -personally reviewed, downtrended leukocytosis, K of 2.9 and Mg of 1.4 replenished, calcium of 8.3 replenished Medications Administered Aspirin (Aspirin 81 Mg Ectab) 81 mg PO DAILY [facility] Stop: 11/09/24 10:58 Last Admin: 10/11/24 09:09 Dose: 81 mg Documented By: Admin: 10/10/24 12:44 Dose: 81 mg Documented By: LISSET Atorvastatin Calcium (Atorvastatin 40 Mg Tab) 40 mg PO DAILY [facility] Stop: 11/09/24 10:58 Last Admin: 10/11/24 09:09 Dose: 40 mg Documented By: Admin: 10/10/24 12:44 Dose: 40 mg Documented By: LISSET Clopidogrel Bisulfate (Clopidogrel Bisulfate 75 Mg Tab) 75 mg PO DAILY [facility] Stop: 11/09/24 10:58 Last Admin: 10/11/24 09:09 Dose: 75 mg Documented By: Admin: 10/10/24 12:45 Dose: 75 mg Documented By: LISSET Heparin Sodium (Porcine) (Heparin Sod 5,000 Unit/0.5 Ml Vial) 5,000 units SQ Q8 [facility] Stop: 11/09/24 13:59 Last Admin: 10/11/24 15:28 Dose: 5,000 units Documented By: Admin: 10/11/24 05:44 Dose: 5,000 units Documented By: Admin: 10/10/24 22:42 Dose: 5,000 units Documented By: Admin: 10/10/24 13:11 Dose: 5,000 units Documented By: LISSET Sodium Chloride (Nss) 1,000 mls @ 100 mls/hr IV .Q10H [facility] Stop: 10/13/24 07:29 Last Admin: 10/11/24 12:31 Dose: 100 mls/hr Documented By: Infusion: 10/11/24 12:25 Dose: Infused Documented By: Admin: 10/11/24 01:58 Dose: 100 mls/hr Documented By: Infusion: 10/11/24 01:58 Dose: Infused Documented By: Infusion: 10/10/24 22:08 Dose: 100 mls/hr Documented By: Admin: 10/10/24 17:16 Dose: 125 mls/hr Documented By: Infusion: 10/10/24 17:16 Dose: Infused Documented By: Infusion: 10/10/24 11:11 Dose: 125 mls/hr Documented By: Infusion: 10/10/24 10:25 Dose: 0 mls/hr Documented By: Admin: 10/10/24 09:30 Dose: 125 mls/hr Documented By: MARITZA Cefepime HCl (Maxipime 2000mg) 2,000 mg in 20 mls @ 5 mls/min IV Q8H [facility]; Protocol Stop: 10/15/24 11:59 Last Admin: 10/11/24 12:26 Dose: 5 mls/min Documented By: Admin: 10/11/24 03:34 Dose: 5 mls/min Documented By: Admin: 10/10/24 20:31 Dose: 5 mls/min Documented By: Admin: 10/10/24 13:10 Dose: 5 mls/min Documented By: LISSET Insulin Aspart (Insulin Aspart Per Unit Charge) 0 units SC ACHS [facility] Stop: 11/09/24 11:59 Last Admin: 10/11/24 12:24 Dose: 4 units Documented By: OSCAR Co-signed By: Admin: 10/11/24 08:44 Dose: 2 units Documented By: OSCAR Co-signed By: Admin: 10/10/24 20:22 Dose: Not Given Documented By: Admin: 10/10/24 17:10 Dose: Not Given Documented By: Admin: 10/10/24 13:10 Dose: 2 units Documented By: LISSET Co-signed By: CATHY Levothyroxine Sodium (Levothyroxine Sodium 25 Mcg Tablet) 25 mcg PO DAILYBB [facility] Stop: 11/09/24 10:58 Last Admin: 10/11/24 06:45 Dose: 25 mcg Documented By: Admin: 10/10/24 12:45 Dose: 25 mcg Documented By: LISSET Miscellaneous (Colesevelam~ Order Awaiting Action) 1 each N/A QS [facility] Stop: 11/09/24 15:59 Last Admin: 10/11/24 15:29 Dose: Not Given Documented By: Admin: 10/11/24 08:46 Dose: Not Given Documented By: Admin: 10/10/24 23:25 Dose: Not Given Documented By: Admin: 10/10/24 17:10 Dose: Not Given Documented By: RIVERA Miscellaneous (Elmiron ~Order Awaiting Action) 1 each N/A QS [facility] Stop: 11/09/24 15:59 Last Admin: 10/11/24 15:29 Dose: Not Given Documented By: Admin: 10/11/24 08:46 Dose: Not Given Documented By: Admin: 10/10/24 23:25 Dose: Not Given Documented By: Admin: 10/10/24 17:10 Dose: Not Given Documented By: RIVERA Johnsoncellaneous Information (Vancomycin Consult Active) 1 each N/A ONE [facility] Stop: 11/09/24 07:21 Last Admin: 10/11/24 10:36 Dose: 1 each Documented By: Admin: 10/10/24 17:17 Dose: 1 each Documented By: RIVERA Pantoprazole Sodium (Pantoprazole 40 Mg Tab) 40 mg PO DAILY [facility] Stop: 11/09/24 10:58 Last Admin: 10/11/24 09:09 Dose: 40 mg Documented By: Admin: 10/10/24 12:44 Dose: 40 mg Documented By: LISSET Tamsulosin HCl (Tamsulosin Hcl 0.4 Mg Cap) 0.4 mg PO DAILY [facility] Stop: 11/09/24 10:58 Last Admin: 10/11/24 09:09 Dose: 0.4 mg Documented By: Admin: 10/10/24 12:45 Dose: 0.4 mg Documented By: LISSET Tapentadol (Tapentadol Hcl 50 Mg Tab) 50 mg PO Q6H PRN PRN Reason: Severe Pain (Scale Score 7-10) Stop: 10/24/24 10:58 Last Admin: 10/11/24 08:34 Dose: 50 mg Documented By: Admin: 10/10/24 22:43 Dose: 50 mg Documented By: AMERICA
[2024-10-11] MEDS: MAGNESIUM SULFATE / D5W 1 GM/100 ML BAG IV SCH (16:20)
[2024-10-11] MEDS: CALCIUM GLUCONATE 1,000 MG/60 ML BAG IV STA (16:31)
[2024-10-11] MEDS: POTASSIUM CHLORIDE CRTAB 20 MEQ TABCR PO SCH (17:28)
[2024-10-11] MEDS: VANCOMYCIN HCL 1,250 MG in SODIUM CHLORIDE 0.9% 250 ML IV SCH (17:42)
[2024-10-11] MEDS: LORazepam 0.5 MG TAB PO PRN (18:36)
[2024-10-11] MEDS: busPIRone 5 MG TAB PO SCH (21:00)
[2024-10-12] MEDS: POTASSIUM CHLORIDE CRTAB 20 MEQ TABCR PO ONE (00:19)
[2024-10-12 09:01] LABS: Hematocrit (blood only) 35.2 % (42.0-52.0); Hemoglobin 11.1 g/dl (14.0-18.0); Mean Corpuscular Hemoglobin 26.6 pg (25.0-34.0); Mean Corpuscular Volume 84.2 fL (80.0-100.0); Platelet Count 292 K/uL (130-400); RDW Standard Deviation 50.7 fL (36.4-46.3); Red Blood Count 4.18 M/uL (4.70-6.10); White Blood Count 10.54 K/ul (4.8-10.8)
[2024-10-12 09:33] LABS: Anion Gap 3.0 (3-11); Blood Urea Nitrogen 8.0 mg/dl (6-23); Calcium 8.4 mg/dl (8.6-10.3); Carbon Dioxide 26.0 mmol/L (21-32); Chloride 112.0 mmol/L (98-107); Creatinine Clr Calc Pharmacy 150.6 ml/min; Glucose 188.0 mg/dl (70-99(Fasting)); Potassium 4.9 mmol/L (3.5-5.1); Sodium 141.0 mmol/L (136-145)
[2024-10-12] MEDS: VANCOMYCIN LEVEL ONE (09:52)
--- NOTE | 2024-10-12 13:09 | Hospitalist Progress Note ---
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 #Severe Sepsis #Complicated UTI #Stage II Sacral Ulcers -improving with fluids and abx Plan: -continue abx until cultures speciate -Podiatry consult, appreciate recs -Wound care consult, appreciate assistance #JAMIE #Complicated Grief #Hospital Acquired Delirium -patient is struggling with passing of several years ago -very anxious at this time -now showing evidence of delirium Plan: -increase buspar to 10 mg tid -pastoral care consult, appreciate recs -avoid anticholinergics and benzos -will consult psychiatry pending improvement in hospital acquired delirium -start melatonin 3mg at bedtime Hyperglycemia Diabetes -continue lantus and SSI Right groin wound Peripheral artery disease Right common femoral to popliteal bypass with nonreversed GSV on 06/28 status post debridements Status post right TMA wound debridement 07/02 with 6 weeks of IV Invanz -Will consult wound care -Will consult podiatry -Continue aspirin, Plavix and Lipitor -Seen by vascular surgery on 10/09/2024 and photos on the epic chart -Advised to continue aspirin, Plavix and statin and wound care. Follow-up with vascular surgery as recommended -Currently on antibiotics as above Hyperlipidemia -On statin and colesevelam Hypertension -Close monitor GERD -Protonix BPH -On Flomax History of hematuria Urinary retention S/p Ware -Urology consulted, appreciate recs Will monitor Interstitial cystitis -On elmiron Hypothyroidism -On Synthyroid I spent a total of 50 minutes in direct patient care, including [id number] time with the patient and/or family, reviewing medical records, ordering and reviewing diagnostic tests, and coordinating care with other healthcare providers. This time includes: history taking, physical examination, medical decision making, counseling, ECG interpretation, imaging interpretation, lab interpretation, orders, and education, excluding time spent in the performance of separately billed services. Admission and Anticipated Discharge Date Admission Date: October 10, 2024 Subjective Patient seen and examined at bedside. Patient not doing well today. Has hospital acquired delirium. A bit more disoriented. Review of Systems Review of Systems: CONSTITUTIONAL: Patient denies fevers, chills, sweats and weight changes. EYES: Patient denies any visual symptoms. EARS, NOSE, AND THROAT: No difficulties with hearing. No symptoms of rhinitis or sore throat. CARDIOVASCULAR: Patient denies chest pains, palpitations, orthopnea and paroxysmal nocturnal dyspnea. RESPIRATORY: No dyspnea on exertion, no wheezing or cough. GI: No nausea, vomiting, diarrhea, constipation, abdominal pain, hematochezia or melena. : No urinary hesitancy or dribbling. No nocturia or urinary frequency. No abnormal urethral discharge. MUSCULOSKELETAL: No myalgias or arthralgias. NEUROLOGIC: No chronic headaches, no seizures. Patient denies numbness, tingling or weakness. PSYCHIATRIC: anxious, tired, crying ENDOCRINE: No excessive urination or excessive thirst. DERMATOLOGIC: Patient denies any rashes or skin changes. Physical Exam Physical Exam: Gen: A&O 2 NAD HEENT: NCAT, EOMI, not icteric. External ears normal. No rhinorrhea. Moist mucous membranes. Neck: Supple, full range of motion, no observable masses, No meningeal sign. Lungs: No Respiratory distress CV: RRR, no edema. Abdomen: Soft, nondistended, No rebound tenderness. MSK: No joint swelling, no redness. Skin: No rashes, petechiae, lesions. Normal color per patient. Neuro: Normal Gait, Grossly intact. Psych: tearful, anxious, altered Results & Data Results & Data Vital Signs (Past 12 Hours) Vital Signs Temp Pulse Resp BP Pulse Ox O2 Del Method 10/12/24 12:10 36.2 C L 79 20 149/76 H 99 Room Air 10/12/24 03:46 36.7 C 62 20 113/67 62 L Room Air Laboratory Results -personally reviewed, no leukocytosis, Hgb baseline, creatinine at baseline Medications Administered Aspirin (Aspirin 81 Mg Ectab) 81 mg PO DAILY [facility] Stop: 11/09/24 10:58 Last Admin: 10/12/24 08:56 Dose: 81 mg Documented By: Admin: 10/11/24 09:09 Dose: 81 mg Documented By: Admin: 10/10/24 12:44 Dose: 81 mg Documented By: LISSET Atorvastatin Calcium (Atorvastatin 40 Mg Tab) 40 mg PO DAILY [facility] Stop: 11/09/24 10:58 Last Admin: 10/12/24 08:56 Dose: 40 mg Documented By: Admin: 10/11/24 09:09 Dose: 40 mg Documented By: Admin: 10/10/24 12:44 Dose: 40 mg Documented By: LISSET Buspirone HCl (Buspirone 5 Mg Tab) 5 mg PO TID [facility] Stop: 11/10/24 20:59 Last Admin: 10/12/24 08:55 Dose: 5 mg Documented By: Admin: 10/11/24 21:00 Dose: 5 mg Documented By: karen Clopidogrel Bisulfate (Clopidogrel Bisulfate 75 Mg Tab) 75 mg PO DAILY [facility] Stop: 11/09/24 10:58 Last Admin: 10/12/24 08:56 Dose: 75 mg Documented By: Admin: 10/11/24 09:09 Dose: 75 mg Documented By: Admin: 10/10/24 12:45 Dose: 75 mg Documented By: LISSET Heparin Sodium (Porcine) (Heparin Sod 5,000 Unit/0.5 Ml Vial) 5,000 units SQ Q8 [facility] Stop: 11/09/24 13:59 Last Admin: 10/12/24 06:33 Dose: 5,000 units Documented By: karen Admin: 10/11/24 21:02 Dose: 5,000 units Documented By: karen Admin: 10/11/24 15:28 Dose: 5,000 units Documented By: Admin: 10/11/24 05:44 Dose: 5,000 units Documented By: Admin: 10/10/24 22:42 Dose: 5,000 units Documented By: Admin: 10/10/24 13:11 Dose: 5,000 units Documented By: LISSET Sodium Chloride (Nss) 1,000 mls @ 100 mls/hr IV .Q10H [facility] Stop: 10/13/24 07:29 Last Admin: 10/12/24 08:47 Dose: 100 mls/hr Documented By: Infusion: 10/12/24 08:47 Dose: Infused Documented By: Admin: 10/11/24 23:18 Dose: 100 mls/hr [place]ed [place] [facility] 10/11/24 23:17 Dose: Infused [place]ed By[place] [facility] Admin: 10/11/24 12:31 Dose: 100 mls/hr Documented By: Infusion: 10/11/24 12:25 Dose: Infused Documented By: Admin: 10/11/24 01:58 Dose: 100 mls/hr [place]ed By[place] [facility] [place]: 10/11/24 01:58 Dose: Infused [place]ed By[place] [facility]: 10/10/24 22:08 Dose: 100 mls/hr Documented By: [facility] Admin: 10/10/24 17:16 Dose: 125 mls/hr Documented By: Infusion: 10/10/24 17:16 Dose: Infused Documented By: Infusion: 10/10/24 11:11 Dose: 125 mls/hr Documented By: Infusion: 10/10/24 10:25 Dose: 0 mls/hr Documented By: Admin: 10/10/24 09:30 Dose: 125 mls/hr Documented By: Cefepime HCl (Maxipime 2000mg) 2,000 mg in 20 mls @ 5 mls/min IV Q8H [facility]; Protocol Stop: 10/15/24 11:59 Last Admin: 10/12/24 13:12 Dose: 5 mls/min Documented By: Admin: 10/12/24 03:26 Dose: 5 mls/min Documented By: pawel Admin: 10/11/24 21:01 Dose: 5 mls/min Documented By: pawel Admin: 10/11/24 12:26 Dose: 5 mls/min Documented By: Admin: 10/11/24 03:34 Dose: 5 mls/min [place]ed By: [facility]: 10/10/24 20:31 Dose: 5 mls/min [place]ed By: [facility] Admin: 10/10/24 13:10 Dose: 5 mls/min Documented By: LISSET Vancomycin HCl 1,250 mg/ (Sodium Chloride) 275 mls @ 200 mls/hr IV Q8H [facility] Stop: 10/25/24 16:59 Last Infusion: 10/12/24 11:15 Dose: Infused Documented By: Admin: 10/12/24 09:50 Dose: 200 mls/hr Documented By: Infusion: 10/12/24 01:41 Dose: Infused Documented By: karen Admin: 10/12/24 00:18 Dose: 200 mls/hr Documented By: karen Infusion: 10/11/24 19:07 Dose: Infused Documented By: Admin: 10/11/24 17:42 Dose: 200 mls/hr Documented By: AM Insulin Aspart (Insulin Aspart Per Unit Charge) 0 units SC ACHS [facility] Stop: 11/09/24 11:59 Last Admin: 10/12/24 08:47 Dose: 2 units Documented By: OSCAR Co-signed By: ADITI Admin: 10/11/24 21:02 Dose: 2 units Documented By: karen Co-signed By: AMERICA Admin: 10/11/24 17:28 Dose: 5 units Documented By: OSCAR Co-signed By: Admin: 10/11/24 12:24 Dose: 4 units Documented By: OSCAR Co-signed By: Admin: 10/11/24 08:44 Dose: 2 units Documented By: OSCAR Co-signed By: Admin: 10/10/24 20:22 Dose: Not Given Documented By: Admin: 10/10/24 17:10 Dose: Not Given Documented By: Admin: 10/10/24 13:10 Dose: 2 units Documented By: LISSET Co-signed By: CATHY Levothyroxine Sodium (Levothyroxine Sodium 25 Mcg Tablet) 25 mcg PO DAILYBB [facility] Stop: 11/09/24 10:58 Last Admin: 10/12/24 06:33 Dose: 25 mcg Documented By: karen Admin: 10/11/24 06:45 Dose: 25 mcg Documented By: Admin: 10/10/24 12:45 Dose: 25 mcg Documented By: LISSET Miscellaneous (Colesevelam~ Order Awaiting Action) 1 each N/A QS [facility] Stop: 11/09/24 15:59 Last Admin: 10/12/24 08:43 Dose: Not Given Documented By: Admin: 10/12/24 01:02 Dose: Not Given Documented By: Admin: 10/11/24 15:29 Dose: Not Given Documented By: Admin: 10/11/24 08:46 Dose: Not Given Documented By: Admin: 10/10/24 23:25 Dose: Not Given [place]ed By: [facility]: 10/10/24 17:10 Dose: Not Given Documented By: RIVERA Miscellaneous (Elmiron ~Order Awaiting Action) 1 each N/A QS [facility] Stop: 11/09/24 15:59 Last Admin: 10/12/24 08:43 Dose: Not Given Documented By: Admin: 10/12/24 01:02 Dose: Not Given Documented By: [facility] Admin: 10/11/24 15:29 Dose: Not Given Documented By: Admin: 10/11/24 08:46 Dose: Not Given Documented By: Admin: 10/10/24 23:25 Dose: Not Given Documented By: [facility] Admin: 10/10/24 17:10 Dose: Not Given Documented By: RIVERA Johnsoncellaneous Information (Vancomycin Consult Active) 1 each N/A ONE [facility] Stop: 11/09/24 07:21 Last Admin: 10/12/24 08:44 Dose: 1 each Documented By: Admin: 10/11/24 10:36 Dose: 1 each Documented By: Admin: 10/10/24 17:17 Dose: 1 each Documented By: RIVERA Pantoprazole Sodium (Pantoprazole 40 Mg Tab) 40 mg PO DAILY [facility] Stop: 11/09/24 10:58 Last Admin: 10/12/24 08:56 Dose: 40 mg Documented By: Admin: 10/11/24 09:09 Dose: 40 mg Documented By: Admin: 10/10/24 12:44 Dose: 40 mg Documented By: LISSET Potassium Chloride (Potassium Chloride Crtab 20 Meq Tabcr) 40 meq PO QAM [facility] Stop: 11/10/24 15:59 Last Admin: 10/12/24 09:44 Dose: Not Given Documented By: Admin: 10/11/24 17:28 Dose: 40 meq Documented By: AM Tamsulosin HCl (Tamsulosin Hcl 0.4 Mg Cap) 0.4 mg PO DAILY [facility] Stop: 11/09/24 10:58 Last Admin: 10/12/24 08:56 Dose: 0.4 mg Documented By: Admin: 10/11/24 09:09 Dose: 0.4 mg Documented By: DANicho Admin: 10/10/24 12:45 Dose: 0.4 mg Documented By: LISSET Tapentadol (Tapentadol Hcl 50 Mg Tab) 50 mg PO Q6H PRN PRN Reason: Severe Pain (Scale Score 7-10) Stop: 10/24/24 10:58 Last Admin: 10/11/24 16:29 Dose: 50 mg Documented By: Admin: 10/11/24 08:34 Dose: 50 mg Documented By: Admin: 10/10/24 22:43 Dose: 50 mg Documented By: AMERICA
[2024-10-12] MEDS: busPIRone 5 MG TAB PO SCH (14:30)
[2024-10-12] MEDS: COLESEVELAM HCL PO SCH (16:28)
[2024-10-12] MEDS: MELATONIN 3 MG TAB PO SCH (20:30)
[2024-10-12] MEDS: POLYETHYLENE (MIRALAX) 17 GM PACK PO PRN (20:31)
[2024-10-12] MEDS: ELMIRON PO SCH (20:32)
[2024-10-13 06:27] LABS: Hematocrit (blood only) 34.0 % (42.0-52.0); Hemoglobin 10.8 g/dl (14.0-18.0); Mean Corpuscular Hemoglobin 26.2 pg (25.0-34.0); Mean Corpuscular Volume 82.5 fL (80.0-100.0); Platelet Count 281 K/uL (130-400); RDW Standard Deviation 49.1 fL (36.4-46.3); Red Blood Count 4.12 M/uL (4.70-6.10); White Blood Count 10.20 K/ul (4.8-10.8)
[2024-10-13 07:02] LABS: Anion Gap 5.0 (3-11); Blood Urea Nitrogen 13.0 mg/dl (6-23); Calcium 8.2 mg/dl (8.6-10.3); Carbon Dioxide 25.0 mmol/L (21-32); Chloride 109.0 mmol/L (98-107); Creatinine Clr Calc Pharmacy 158.3 ml/min; Glucose 148.0 mg/dl (70-99(Fasting)); Potassium 3.1 mmol/L (3.5-5.1); Sodium 139.0 mmol/L (136-145)
[2024-10-13 07:21] VITALS: O2SAT 95
[2024-10-13] MEDS: ACETAMINOPHEN 325 MG TAB PO PRN (08:17)
--- NOTE | 2024-10-13 09:04 | XRay Report ---
EXAM: AP portable chest EXAM REASON: Rule out infection COMPARISON: 01/01/2015 TECHNIQUE: Single AP view of the chest was obtained FINDINGS: The lungs are well-expanded and clear. No focal areas of consolidation identified. The cardiac and mediastinal silhouettes are within normal limits. There is no pneumothorax and no acute bony abnormalities are seen. IMPRESSION: No acute cardiopulmonary abnormalities. Electronically signed by Adrian Pritchett 10-13-2024 09:04 AM
[2024-10-13] MEDS: CALCIUM GLUCONATE 1,000 MG/60 ML BAG IV ONE (09:51)
[2024-10-13] MEDS: FLUCONAZOLE 100 MG TAB PO ONE (09:51)
[2024-10-13] MEDS: POTASSIUM CHLORIDE CRTAB 20 MEQ TABCR PO STA (09:56)
[2024-10-13] MEDS: VANCOMYCIN LEVEL ONE (11:00)
[2024-10-13 11:05] VITALS: BP 134/90; PULSE 95; RESP 22; TEMP 97.7
[2024-10-13] MEDS ORDERED: POTASSIUM CHLORIDE CRTAB 20 MEQ TABCR PO ONE (15:00)
--- NOTE | 2024-10-13 17:40 | Discharge Summary ---
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 #Severe Sepsis #Complicated UTI #Stage II Sacral Ulcers -improving with fluids and abx Plan: -continue abx until cultures speciate -Podiatry consult, appreciate recs -Wound care consult, appreciate assistance #JAMIE #Complicated Grief #Hospital Acquired Delirium -patient is struggling with passing of several years ago -very anxious at this time -now showing evidence of delirium Plan: -increase buspar to 10 mg tid -pastoral care consult, appreciate recs -avoid anticholinergics and benzos -will consult psychiatry pending improvement in hospital acquired delirium -start melatonin 3mg at bedtime Hyperglycemia Diabetes -continue lantus and SSI Right groin wound Peripheral artery disease Right common femoral to popliteal bypass with nonreversed GSV on 06/28 status post debridements Status post right TMA wound debridement 07/02 with 6 weeks of IV Invanz -Will consult wound care -Will consult podiatry -Continue aspirin, Plavix and Lipitor -Seen by vascular surgery on 10/09/2024 and photos on the epic chart -Advised to continue aspirin, Plavix and statin and wound care. Follow-up with vascular surgery as recommended -Currently on antibiotics as above Hyperlipidemia -On statin and colesevelam Hypertension -Close monitor GERD -Protonix BPH -On Flomax History of hematuria Urinary retention S/p Ware -Urology consulted, appreciate recs Will monitor Interstitial cystitis -On elmiron Hypothyroidism -On Synthyroid I spent a total of 50 minutes in direct patient care, including [id number] time with the patient and/or family, reviewing medical records, ordering and reviewing diagnostic tests, and coordinating care with other healthcare providers. This time includes: history taking, physical examination, medical decision making, counseling, ECG interpretation, imaging interpretation, lab interpretation, orders, and education, excluding time spent in the performance of separately billed services. 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 On medicine, treated for UTI. Noted to have delirium and severe anxiety, started on buspar tid. Given fluconazole for yeast infection. On 10/13/2024 patient hemodynamically stable and medically ready for discharge home. 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 Patient was hospitalized in August 2024 with hematuria and was at the time was status post Ware catheter placement. Patient was status post cystoscopy with cystolitholopaxy, clot evacuation, fulguration of bleeding prostatic vari cosities and fulguration of bladder neck on 08/10/2024. Urine cultures grew Jyoti glabrata. He was discharged on fluconazole for 4 weeks. Patient also had right TMA wound debridement on 07/02 and s/p 6 weeks of IV Invanz. Patient also has sacral pressure ulcer stage II. Last admission was discharged to rehab. Currently lives at home. Friend who is a power of estate planning attorney takes care of him. Patient is mostly wheelchair-bound. Needs assistance to transfer to the wheelchair. Ware is removed. currently. In the ER he was having urinary retention and again Ware was placed. Denies any fevers. Was feeling cold. Was nauseous. Denies any chest pain or shortness of breath. No headaches. No neck pain. No runny nose or sore throat. No cough. No difficulty swallowing but take some time to swallow as per the friend. No diarrhea or constipation. Hemodynamics are okay in the ER. Somewhat hard of hearing and friend helped with H&P. Past medical history. As mentioned above Past surgical history. Left 2nd and 4th metatarsal head amputation for osteomyelitis. Amputation of the right foot transmetatarsal. Left femoral- popliteal artery revascularization with angioplasty. Lithotripsy. Tonsillectomy. Bilateral cataracts. Repair of hip fracture. Right tibial peroneal artery revascularization with stent placement. Right total hip arthroplasty. Right bypass graft femoral anterior tibial. Social history. . No smoking, no alcohol. No drug use. Family history. Brother had lung cancer. Brother had brain tumor. Sister had breast cancer. Thyroid cancer. Brain tumor. Sister had lung cancer. Father had diabetes. [place]. Discharge Exam Gen: A&O 2 NAD HEENT: NCAT, EOMI, not icteric. External ears normal. No rhinorrhea. Moist mucous membranes. Neck: Supple, full range of motion, no observable masses, No meningeal sign. Lungs: No Respiratory distress CV: RRR, no edema. Abdomen: Soft, nondistended, No rebound tenderness. MSK: No joint swelling, no redness. Skin: No rashes, petechiae, lesions. Normal color per patient. Neuro: Normal Gait, Grossly intact. Psych: tearful, anxious, altered Updated Medication List Medication Instructions Recorded Confirmed Type amlodipine 5 mg tablet 5 mg PO DAILY 10/10/24 10/10/24 History aspirin 81 mg tablet,delayed 81 mg PO DAILY 10/10/24 10/10/24 History release atorvastatin 40 mg tablet 40 mg PO DAILY 10/10/24 10/10/24 History clopidogrel 75 mg tablet 75 mg PO DAILY 10/10/24 10/10/24 History colesevelam 625 mg tablet 625 mg PO BID 10/10/24 10/10/24 History empagliflozin 25 mg tablet 25 mg PO DAILY 10/10/24 10/10/24 History (Jardiance) glimepiride 4 mg tablet 4 mg PO BID 10/10/24 10/10/24 History levothyroxine 25 mcg tablet 25 mcg PO DAILY 10/10/24 10/10/24 History liraglutide 0.6 mg/0.1 mL (18 mg/3 1.8 mg subcut DAILY 10/10/24 10/10/24 History mL) subcutaneous pen injector metformin 500 mg tablet,extended 1,500 mg PO DAILY 10/10/24 10/10/24 History release 24 hr pantoprazole 40 mg tablet,delayed 40 mg PO DAILY 10/10/24 10/10/24 History release pentosan polysulfate sodium 100 mg 100 mg PO TID 10/10/24 10/10/24 History capsule (Elmiron) tamsulosin 0.4 mg capsule 0.4 mg PO DAILY 10/10/24 10/10/24 History tapentadol 50 mg tablet 50 mg PO Q6H PRN Severe Pain 10/10/24 10/10/24 History (Scale Score 7-10) amoxicillin 500 mg-potassium 1 tab PO Q12H 4 days #8 tabs 10/13/24 Rx clavulanate 125 mg tablet (Augmentin) buspirone 5 mg tablet 10 mg (2 x 5 mg) PO TID #90 tabs 10/13/24 Rx fluconazole 200 mg tablet 200 mg PO ONCE #1 tab 10/13/24 Rx melatonin 3 mg tablet 3 mg PO HS #30 tabs 10/13/24 Rx ondansetron 4 mg disintegrating 4 mg PO Q8H PRN nausea and 10/13/24 Rx tablet vomiting 4 days #14 tabs Hospital Stay Data Consultations 10/10/24 04:50 ED Decision to Admit Stat 10/10/24 10:59 Consult Podiatry Routine Diagnostic Imagining Performed 10/11/24 12:00 US arterial duplex LE LT Stat Pending Results Patient Have Any Pending Studies at Discharge: No Discharge Instructions Given to Patient (Per Discharging Provider) Diagnosis: sepsis 2/2 complicated UTI Follow Ups: PCP, podiatry, wound care, psychiatry 1. Please follow up with PCP, podiatry and wound care. 2. Please take abx as prescribed. 3. Stay hydrated! Total Time Total Time Spent Total Time Spent (In Minutes): I spent a total of 35 minutes in direct patient care, including [id number] time with the patient and/or family, reviewing medical records, ordering and reviewing diagnostic tests, and coordinating care with other healthcare providers. This time includes: history taking, physical examination, medical decision making, counseling, ECG interpretation, imaging interpretation, lab interpretation, orders, and education, excluding time spent in the performance of separately billed services.
== END 2024-10-13 14:54 | disposition home health service (06) | DRG 871 ==
LOC: ED 02:10 → EDINP 07:28 → 2S 17:02